=== PATIENT | female | born 1940 | race Caucasian/White ===

== ENCOUNTER 2016-09-15 11:16 | Emergency (ER) | payer BC ==
[~2016-09-15] VITALS: Ht 162.6 cm; Wt 62.8 kg
[2016-09-15 11:19] VITALS: TEMP 36.5; Ht 162.6 cm; Wt 62.8 kg
[2016-09-15 11:41] VITALS: O2SAT 97
--- NOTE | 2016-09-15 11:51 | EMERGENCY ROOM VISIT NOTE ---
History Report prepared by Lam: Foster Juares Under the Supervision of: Dr. Bhavik Canales M.D. First contact with patient: 11:44 Chief Complaint: RESPIRATORY PROBLEMS Stated Complaint: DIFFICULTY BREATHING Nursing Triage Summary: I have had a bad cough for the past 7 days. saturday I was placed on antibiotics. History of Present Illness The patient is a 75 year old female who presents to the Emergency Room with complaints of persistent shortness of breath since last night. The patient has had a bad cough for the past seven days that produces phlegm. She was started on Doxycycline and Tessalon Perles three days ago after going to [facility] for the cough. She did not have a chest X-ray at [facility]. She denies any fevers, chills, or increased swelling of the lower extremities. The patient denies any history of COPD or asthma. The patient stopped smoking over one year ago. Source of History: patient Onset: last night Position: other (respiratory) Quality: other (short of breath) Timing: other (persistent) Associated Symptoms: + cough, No chills, No fevers Review of Systems All systems have been listed, reviewed, and are negative other than those previously mentioned. Please see Additional Medical History Sheet. Past Medical & Surgical Medical Problems: (1) HTN (hypertension) (2) Kidney disease Surgical Problems: (1) S/P AAA repair Family History Hypertension Kidney disease Social History Smoking Status: Former Smoker Current/Historical Medications Scheduled Benzonatate (Tessalon Perles), 100 MG PO TID Doxycycline Monohydrate (Monodox), 100 MG PO BID Levothyroxine Sodium (Synthroid), 50 MCG PO Q2D Levothyroxine Sodium (Synthroid), 25 MCG PO Q2D Losartan Potassium (Cozaar), 100 MG PO DAILY Simvastatin (Zocor), 40 MG PO QPM Allergies Coded Allergies: No Known Allergies (Unverified , 09/15/16) Physical Exam Vital Signs Date Time Temp Pulse Resp B/P Pulse Ox O2 Delivery O2 Flow Rate FiO2 09/15/16 14:20 67 15 100/77 95 Room Air 09/15/16 13:04 65 17 102/74 100 Nebulizer 7.0 09/15/16 12:04 63 09/15/16 11:41 97 Room Air 09/15/16 11:19 36.5 80 16 158/85 97 Room Air Physical Exam GENERAL: Patient awake, alert, oriented x 3. Patient follows commands. Patient does not appear toxic. Patient is adequately hydrated and well- nourished. SKIN: No erythema, pallor, cyanosis or rash HEENT: Normal head, pupils equal, reactive to light and accommodation. Ears normal. Oral cavity and posterior pharynx appear normal. Neck: Without adenopathy, no neck vein distention, carotids strong and equal without bruits. LUNGS: Wheezes in all lung donald. HEART: No murmurs. No gallops. No rubs ABDOMEN: No masses, no rebound, no hepatomegaly or splenomegaly. EXTREMITIES: No signs of trauma or infection. NEUROLOGIC: Cranial nerves II-XII within normal limits. No gross motor sensory function deficits. Medical Decision & Procedures ER Provider Diagnostic Interpretation: X ray results are stated below per my interpretation and the radiologist's interpretation. CHEST 2 VIEWS ROUTINE CLINICAL HISTORY: Shortness of breath COMPARISON STUDY: No previous studies for comparison. FINDINGS: The cardiac and mediastinal contours are normal. There is no evidence of focal pulmonary consolidation. There is no evidence of failure. No pleural effusions are visualized.[There are calcifications at the level of the aortic knob. IMPRESSION: No active disease in the chest. Electronically signed by: Jonathan Mkceon M.D. 09/15/2016 12:29 PM Dictated Date/Time: 09/15/2016 12:28 PM Laboratory Results 09/15/16 11:40 Red Blood Count 4.76, Mean Corpuscular Volume 92.6, Mean Corpuscular Hemoglobin 33.8, Mean Corpuscular Hemoglobin Concent 36.5, Mean Platelet Volume 10.7 09/15/16 11:40 Test 09/15/16 11:40 White Blood Count 6.54 K/uL (4.8-10.8) Red Blood Count 4.76 M/uL (4.2-5.4) Hemoglobin 16.1 g/dL (12.0-16.0) Hematocrit 44.1 % (37-47) Mean Corpuscular Volume 92.6 fL (80-100) Mean Corpuscular Hemoglobin 33.8 pg (25-34) Mean Corpuscular Hemoglobin Concent 36.5 g/dl (32-36) Platelet Count 264 K/uL (130-400) Mean Platelet Volume 10.7 fL (7.4-10.4) RDW Standard Deviation 45.8 fL (36.4-46.3) RDW Coefficient of Variation 13.5 % (11.5-14.5) Neutrophils % (Manual) 65.5 % Lymphocytes % (Manual) 14.2 % Variant Lymphocytes % (manual) 11.5 % Monocytes % (Manual) 8.8 % Neutrophils # (Manual) 4.28 K/uL (1.4-6.5) Total Absolute Neutrophils 4.28 K/uL (1.4-6.5) Lymphocytes # (Manual) 0.93 K/uL (1.2-3.4) Absolute Variant Lymphocytes 0.75 K/uL Total Absolute Lymphocytes 1.68 K/uL (1.2-3.4) Monocytes # (Manual) 0.58 K/uL (0.11-0.59) Red Blood Cell Morphology Unremarkable Anion Gap 10.0 mmol/L (3-11) Est Creatinine Clear Calc Drug Dose 39.4 ml/min Estimated GFR () 57.7 Estimated GFR (Non- 49.8 BUN/Creatinine Ratio 13.5 (10-20) Calcium Level 9.3 mg/dl (8.5-10.1) Troponin I < 0.015 ng/ml (0-0.045) Laboratory results as stated above per my review. Medications Administered Medications (Trade) Dose Ordered Sig/Yanick Route Start Time Stop Time Status Last Admin Dose Admin Albuterol/ Ipratropium (Duoneb) 3 ml NOW STAT INH 09/15/16 12:50 09/15/16 12:52 DC 09/15/16 13:01 3 ML ECG Indication: SOB/dyspnea Rate (beats per minute): 61 Rhythm: normal sinus Findings: no acute ischemic change, no ectopy ED Course 1145: Past medical records reviewed. The patient was evaluated in room C3. A complete history and physical examination was performed. 1246: The patient still has some wheezes but much less. She had 4 puffs of her own Albuterol inhaler with a chamber. She will next have a nebulizer treatment. 1250: DuoNeb 3 ml INH. 1352: The patient had a breathing treatment. She is still wheezing but feels better. 1400: Upon reevaluation, the patient appeared to have improvement of her symptoms. I discussed today's findings with her. She verbalized agreement of the treatment plan. She was discharged home. Medical Decision I considered multiple diagnoses including pneumonia, bronchitis, asthma. The patient's been coughing for about 1 week. She's been treated with doxycycline, Tessalon Perles) Ventolin inhaler over the past 3 days with minimal relief. She was given more Ventolin here using and her inhaler plus a chamber. Patient states that she had minimal relief and therefore was given a regular nebulizer treatment which did give her more relief. Her pulse ox readings were in the high 90s. Chest x-ray does not reveal an infiltrate. White count is not elevated. I believe the patient can safely return home. She 'll continue to use her inhaler and her current medications. Impression Primary Impression: Acute bronchitis Scribe Attestation The scribe's documentation has been prepared under my direction and personally reviewed by me in its entirety. I confirm that the note above accurately reflects all work, treatment, procedures, and medical decision making performed by me. Departure Information Dispostion Home / Self-Care Forms HOME CARE DOCUMENTATION FORM, IMPORTANT VISIT INFORMATION Patient Instructions Bronchitis Acute, My [facility] Additional Instructions Follow-up with your family physician within the next week. Continue Ventolin with the chamber. 2 puffs every 4 hours until wheezing has resolved. Continue your other current medications as prescribed. Return here sooner if your symptoms worsen.
[2016-09-15 12:06] LABS: HEMATOCRIT 44.1 % (37-47); MEAN CELL VOLUME 92.6 fL (80-100); MEAN CORPUSCULAR HEMOGLOBIN 33.8 pg (25-34); MEAN CORPUSCULAR HGB CONC 36.5 g/dl (32-36); MEAN PLATELET VOLUME 10.7 fL (7.4-10.4); PLATELET COUNT 264 K/uL (130-400); RED BLOOD COUNT 4.76 M/uL (4.2-5.4); WHITE BLOOD COUNT 6.54 K/uL (4.8-10.8)
[2016-09-15 12:15] LABS: BUN/CREATININE RATIO 13.5 (10-20); CALCIUM 9.3 mg/dl (8.5-10.1); CREATININE 1.1 mg/dl (0.60-1.20); POTASSIUM 4.6 mmol/L (3.5-5.1)
--- NOTE | 2016-09-15 12:31 | DIAGNOSTIC IMAGING REPORT ---
CHEST 2 VIEWS ROUTINE CLINICAL HISTORY: Shortness of breath COMPARISON STUDY: No previous studies for comparison. FINDINGS: The cardiac and mediastinal contours are normal. There is no evidence of focal pulmonary consolidation. There is no evidence of failure. No pleural effusions are visualized.[There are calcifications at the level of the aortic knob. IMPRESSION: No active disease in the chest. Electronically signed by: Jonathan Mckeon M.D. 09/15/2016 12:29 PM Dictated Date/Time: 09/15/2016 12:28 PM
[2016-09-15] MEDS ORDERED: DOXY100C76 PO (12:46)
[2016-09-15] MEDS ORDERED: LEVO50TA PO (12:46)
[2016-09-15] MEDS ORDERED: BENZ100C84 PO (12:46)
[2016-09-15] MEDS ORDERED: LEVO25TA PO (12:46)
[2016-09-15] MEDS ORDERED: LOSA1TAB38 PO (12:46)
[2016-09-15] MEDS ORDERED: SIMV40TA2 PO (12:46)
[2016-09-15] MEDS ORDERED: ALBUT/IPRATROP 3MG/0.5MG NEB 3 ML VIAL INH STA (12:50)
[2016-09-15 13:08] LABS: COMPLETE YES; LYMPH ABS # 0.93 K/uL (1.2-3.4); LYMPHOCYTE % 14.2 %; NEUTROPHILS % 65.5 %; VARIANT LYM ABS # 0.75 K/uL; VARIANT LYMPHOCYTE % 11.5 %
[2016-09-15 14:20] VITALS: BP 100/77; PULSE 67; O2SAT 95
== END 2016-09-15 14:39 | disposition home or self-care (01) ==
LOC: C.EDB 11:17 → C.EDC 14:39
DX: J20.9 Acute bronchitis, unspecified (principal); I10 Essential (primary) hypertension; Z79.899 Other long term (current) drug therapy; Z87.891 Personal history of nicotine dependence; Z87.898 Personal history of other specified conditions; Z84.1 Family history of disorders of kidney and ureter; Z82.49 Family history of ischemic heart disease and other diseases of the circulatory system

== ENCOUNTER → 2016-10-04 | Outpatient (CLI) | payer BC ==
[~2016-10-04] MED LIST: BENZ100C84 PO; DOXY100C76 PO; LEVO25TA PO; LEVO50TA PO; LOSA1TAB38 PO; SIMV40TA2 PO
[2016-10-04 11:00] LABS: BLOOD UREA NITROGEN 13 mg/dl (7-18); BUN/CREATININE RATIO 11.1 (10-20); CALCIUM 8.6 mg/dl (8.5-10.1); CARBON DIOXIDE 26 mmol/L (21-32); CHLORIDE 105 mmol/L (98-107); GLUCOSE 130 mg/dl (70-99); POTASSIUM 3.7 mmol/L (3.5-5.1); SODIUM 140 mmol/L (136-145)
== END | disposition home or self-care (01) ==
LOC: C.LAB1850 09:51
PROVIDERS: ATTEND Internal Medicine Nephrology
DX: N18.3 Chronic kidney disease, stage 3 (moderate) (principal); I12.9 Hypertensive chronic kidney disease with stage 1 through stage 4 chronic kidney disease, or unspecified chronic kidney disease; E87.1 Hypo-osmolality and hyponatremia

== ENCOUNTER → 2017-03-28 | Outpatient (CLI) | payer BC ==
[2017-03-28 17:55] LABS: BLOOD UREA NITROGEN 18 mg/dl (7-18); CARBON DIOXIDE 25 mmol/L (21-32); CHLORIDE 105 mmol/L (98-107); GLUCOSE 96 mg/dl (70-99); POTASSIUM 4.2 mmol/L (3.5-5.1); SODIUM 135 mmol/L (136-145)
== END | disposition home or self-care (01) ==
LOC: C.LAB1850 16:02
PROVIDERS: ATTEND Internal Medicine Nephrology
DX: N18.3 Chronic kidney disease, stage 3 (moderate) (principal)

== ENCOUNTER → 2017-08-06 | Outpatient (CLI) | payer BC ==
[2017-08-06 13:33] LABS: BASO % 0.4 %; BASO ABS # 0.04 K/uL (0-0.2); COMPLETE YES; HEMATOCRIT 46.4 % (37-47); IG% 0.2 %; LYMPH % 29.6 %; LYMPH ABS # 2.65 K/uL (1.2-3.4); MEAN CELL VOLUME 95.5 fL (80-100); MEAN CORPUSCULAR HEMOGLOBIN 33.3 pg (25-34); MEAN CORPUSCULAR HGB CONC 34.9 g/dl (32-36); MEAN PLATELET VOLUME 10.6 fL (7.4-10.4); MONO % 5.9 %; NEUT % 62.9 %; PLATELET COUNT 283 K/uL (130-400); RED BLOOD COUNT 4.86 M/uL (4.2-5.4); WHITE BLOOD COUNT 8.95 K/uL (4.8-10.8)
[2017-08-06 13:44] LABS: BLOOD UREA NITROGEN 12 mg/dl (7-18); BUN/CREATININE RATIO 9.8 (10-20); CALCIUM 9.5 mg/dl (8.5-10.1); CARBON DIOXIDE 25 mmol/L (21-32); CHLORIDE 102 mmol/L (98-107); CREATININE 1.17 mg/dl (0.60-1.20); GLUCOSE 96 mg/dl (70-99); MAGNESIUM 1.9 mg/dl (1.8-2.4); PHOSPHORUS 3.9 mg/dl (2.5-4.9); POTASSIUM 4.2 mmol/L (3.5-5.1); SODIUM 135 mmol/L (136-145)
== END | disposition home or self-care (01) ==
LOC: C.LAB1850 12:10
PROVIDERS: ATTEND Internal Medicine Nephrology
DX: E55.9 Vitamin D deficiency, unspecified (principal)

== ENCOUNTER → 2017-08-13 | Outpatient (CLI) | payer BC ==
[2017-08-13 14:06] LABS: URINE APPEARANCE CLEAR (CLEAR); URINE BILIRUBIN NEG (NEG); URINE COLOR YELLOW; URINE NITRITE NEG (NEG); URINE PH 7.5 (4.5-7.5); URINE SPECIFIC GRAVITY 1.007 (1.000-1.030); UROBILINOGEN NEG (NEG); ZZUR CULT IF INDIC CLEAN CATCH NO
[2017-08-13 14:13] LABS: CREATININE, URINE 19.1 mg/dl; URINE PROTIEN/CREAT RATIO 2.4 (0-0.2); URINE TOTAL PROTEIN 45.1 mg/dl (0-11.9)
[2017-08-13 14:30] LABS: MANUAL MICROSCOPIC REQUIRED? NO; REVIEW REQ? NO; SULFASALICYLIC ACID POS (NEG)
== END | disposition home or self-care (01) ==
LOC: C.LAB1850 10:52
PROVIDERS: ATTEND Internal Medicine Nephrology
DX: E55.9 Vitamin D deficiency, unspecified (principal)

== ENCOUNTER → 2017-09-19 | Outpatient (CLI) | payer BC ==
[2017-09-19 17:42] LABS: BLOOD UREA NITROGEN 17 mg/dl (7-18); CALCIUM 9.3 mg/dl (8.5-10.1); CARBON DIOXIDE 28 mmol/L (21-32); CREATININE 1.32 mg/dl (0.60-1.20); GLUCOSE 108 mg/dl (70-99); POTASSIUM 3.7 mmol/L (3.5-5.1); SODIUM 133 mmol/L (136-145)
== END | disposition home or self-care (01) ==
LOC: C.LAB1850 16:34
PROVIDERS: ATTEND Internal Medicine Nephrology
DX: I10 Essential (primary) hypertension (principal)

== ENCOUNTER → 2017-11-05 | Outpatient (CLI) | payer BC ==
[2017-11-05 14:29] LABS: ALBUMIN 3.7 gm/dl (3.4-5.0); BLOOD UREA NITROGEN 15 mg/dl (7-18); CALCIUM 9.3 mg/dl (8.5-10.1); CARBON DIOXIDE 24 mmol/L (21-32); CREATININE 1.16 mg/dl (0.60-1.20); GLUCOSE 86 mg/dl (70-99); PHOSPHORUS 3.4 mg/dl (2.5-4.9); POTASSIUM 4.2 mmol/L (3.5-5.1); SODIUM 135 mmol/L (136-145)
== END | disposition home or self-care (01) ==
LOC: C.LAB1850 11:45
PROVIDERS: ATTEND Internal Medicine Nephrology
DX: N18.3 Chronic kidney disease, stage 3 (moderate) (principal)

== ENCOUNTER 2019-07-17 08:22 | Inpatient (IN) ==
[2019-07-17] MEDS ORDERED: ONDANSETRON INJ 2 MG/ML 2 ML VIAL ONE (08:50)
[2019-07-17 08:54] LABS: Basophils # (auto) 0.03 K/uL (0-0.2); Basophils % (auto) 0.3 %; Eosinophils % (auto) 1.1 %; Hematocrit (blood only) 45.1 % (37-47); Hemoglobin 16.4 g/dL (12.0-16.0); Immature Granulocytes # (auto) 0.02 K/uL (0.00-0.02); Immature Granulocytes % (auto) 0.2 %; Lymphocytes # (auto) 3.06 K/uL (1.2-3.4); Lymphocytes % (auto) 33.2 %; Mean Corpuscular Hemoglobin 34.7 pg (25-34); Mean Corpuscular Hgb Conc 36.4 g/dL (32-36); Mean Corpuscular Volume 95.3 fL (80-100); Mean Platelet Volume 9.8 fL (7.4-10.4); Monocytes # (auto) 0.56 K/uL (0.11-0.59); Monocytes % (auto) 6.1 %; Neutrophils # (auto) 5.46 K/uL (1.4-6.5); Neutrophils % (auto) 59.1 %; Platelet Count 282 K/uL (130-400); RDW Coefficient of Variation 13.4 % (11.5-14.5); RDW Standard Deviation 46.3 fL (36.4-46.3); Red Blood Count 4.73 M/uL (4.2-5.4); White Blood Count 9.23 K/uL (4.8-10.8)
[2019-07-17] MEDS ORDERED: ONDANSETRON INJ 2 MG/ML 2 ML VIAL IV STA (08:54)
--- NOTE | 2019-07-17 09:02 | XRay Report ---
XR chest 1V portable HISTORY: 78 years-old Female Chest pain acute atypical chest pain COMPARISON: Chest radiograph 09/15/2016, CTA of the chest 06/01/2015 TECHNIQUE: Portable AP view of the chest FINDINGS: Cardiac silhouette is mildly enlarged, unchanged. Bibasilar interstitial coarsening is noted without pneumothorax, large pleural effusion or overt pulmonary edema. Degenerative changes of the shoulders and spine. IMPRESSION: Bibasilar interstitial coarsening suggests atelectasis/scarring versus pneumonitis, progr essed from the 09/15/2016 exam. The above report was generated using voice recognition software. It may contain grammatical, syntax o r spelling errors. Electronically signed by: Elvin Farmer M.D. 07/17/2019 9:00 AM
[2019-07-17 09:05] LABS: iSTAT Creatinine 1.1 mg/dl (0.6-1.3); iSTAT Hemoglobin 16.7 g/dl (12.0-16.0); iSTAT Ionized Calcium 1.1 mmol/l (1.12-1.32); iSTAT Potassium 4.5 mEq/L (3.3-5.0)
[2019-07-17] MEDS ORDERED: NiCARDipine HCL INJ 2.5 MG/ML 10 ML AMP ONE (09:08)
[2019-07-17] MEDS ORDERED: NITROGLYCERIN/D5W 100MCG/ML 20ML SYR ONE (09:08)
[2019-07-17 09:09] LABS: INR 0.9 (0.9-1.1); Partial Thromboplastin Time 27.2 Seconds (21.0-31.0); Prothrombin Time 9.6 Seconds (9.0-12.0)
[2019-07-17 09:13] LABS: Albumin Level 3.6 gm/dl (3.4-5.0); BUN Creatinine Ratio 13.5 (10-20); Calcium 9.5 mg/dl (8.5-10.1); Creatinine Clr Calc Pharmacy 39.7 ml/min; Est GFR (African American) 53.5; Est GFR (Non-African American) 46.2; Magnesium 1.8 mg/dl (1.8-2.4); Potassium 4.5 mmol/L (3.5-5.1)
[2019-07-17 09:25] LABS: Albumin Globulin Ratio 0.8 (0.9-2); Bilirubin,Total 0.4 mg/dl (0.2-1); Creatine Kinase MB 5.3 ng/ml (0.5-3.6); Globulin 4.2 gm/dl (2.5-4.0); Thyroid Stimulating Hormone 3.66 uIu/ml (0.300-4.500); Total Protein 7.8 gm/dl (6.4-8.2); Troponin I 2.24 ng/ml (0-0.045)
[2019-07-17] MEDS ORDERED: TICAGRELOR 90 MG TAB PO ONE (09:45)
[2019-07-17] MEDS ORDERED: fentaNYL citrate 100 MCG/2 ML VIAL ONE (09:46)
[2019-07-17] MEDS ORDERED: HEPARIN (PORCINE) 1000 UNIT/ML 10 ML (CATH LAB USE ONLY) ONE (09:46)
[2019-07-17] MEDS ORDERED: MIDAZOLAM HCL 1 MG/ML 2ML VIAL ONE (09:47)
--- NOTE | 2019-07-17 10:11 | Pre Anesthesia Assessment ---
Date of Service July 17, 2019 Pre Sedation Assessment Vital Signs Pulse Pulse Resp BP BP Pulse Ox 07/17/19 10:00 60 17 119/81 92 07/17/19 09:55 60 17 119/81 91 07/17/19 09:50 59 L 17 108/76 92 07/17/19 08:52 91 H 21 147/102 H 94 07/17/19 08:40 96 H 24 126/114 H 95 Cardiovascular RRR, no murmur, no edema Respiratory normal respiratory effort, lungs clear to auscultation Pre-Sedation Airway Assessment Smoking Status: Former smoker Hx Sleep Apnea: No Hx Difficult Intubation: No Short, Thick Neck: No Thyromental Distance: > or= 3.5 Finger Breadths Oral Cavity: + WNL Mallampati Class: III Procedure Planning Contraindications for Sedation: none Current Medications Reviewed: Yes Notes The planned sedation has been discussed with the patient. Informed Consent was obtained. I have identified the patient, determined the appropriateness of sedation and have assessed the patient immediately prior to the procedure. All medicine(s) and interventions are by my order.
--- NOTE | 2019-07-17 10:12 | Cardiology Consultation ---
Date of Consultation July 17, 2019 Assessment & Plan (1) STEMI (ST elevation myocardial infarction): Presentation consistent with inferior STEMI and recommend proceeding with emergent cardiac catheterization and likely primary PCI. No apparent contraindications to procedure. Discussed risks, benefits, alternatives of procedure with patient and they are willing to proceed. Patient with known severe innominate disease and prior AAA repair and will plan to perform procedure via left radial artery Further recommendations pending findings of coronary angiography History of Present Illness Reason for Consultation: Heart Alert Requesting Physician: Alycia Attending Physician: Robert Carrington MD History of Present Illness Mrs. Azul is a 78-year-old man here with acute chest pain and ECG concerning for acute PA. Patient seen emergently in the ED after heart alert activated in route. Prior history is remarkable for significant vascular disease post open AAA repair in 2014. 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 Also with hypertension, dyslipidemia, hypothyroidism and ongoing tobacco abuse. She has chronic kidney disease followed by Dr. Brooks. She was previously seen by Dr. Rivera for palpitations. Chest pain began approximately 3 days ago and describes stuttering chest pain over that time. Last night into this morning developed severe persistent chest pain with associated vomiting. Denies similar symptoms in the past. Given sublingual nitroglycerin, Zofran, aspirin in route in the ED. Chest pain at time of interview 3-4 out of 10. Still with persistent nausea. EKG showed chronic left bundle branch block with inferior ST elevations. Allergies Allergy/AdvReac Type Severity Reaction Status Date / Time No Known Allergies Allergy Unverified 09/15/16 12:44 Home Medications Home Medications Medication Instructions Recorded Confirmed Type aspirin 81 mg tablet,delayed 81 mg PO DAILY 05/26/19 07/17/19 History release bisoprolol fumarate 5 mg tablet 5 mg PO DAILY 05/26/19 07/17/19 History cholecalciferol (vitamin D3) 2,000 4,000 units PO DAILY tab 05/26/19 07/17/19 History unit tablet levothyroxine 50 mcg capsule See Rx Instructions PO DAILY 05/26/19 07/17/19 History losartan 100 mg tablet 100 mg PO DAILY #90 tab 05/28/19 07/17/19 Rx ezetimibe 10 mg PO DAILY 07/17/19 07/17/19 History hydralazine 10 mg PO BID 07/17/19 07/17/19 History Patient History Medical History (Updated 07/17/19 @ 10:38 by Josh Carrington MD) HTN (hypertension) (Chronic) Kidney disease (Chronic) Surgical History (Updated 07/17/19 @ 09:11 by Cesar Davis) S/P AAA repair (Resolved) Social History Preferred Language: Cypriot Feels Safe at Home: Yes Smoking Status: Former smoker Review of Systems Review of Systems: All systems reviewed & are unremarkable except as noted in HPI & below Physical Exam Physical Exam: General: Uncomfortable HEENT: Sclerae anicteric, mucous membranes moist Lungs: Clear to auscultation bilaterally Cardiac: Regular rate and rhythm, no murmurs. Abdomen: Soft, nontender, nondistended, positive bowel sounds. Extremities: Warm, well perfused, no edema. 2+ radial pulses Skin: No rashes or lesions. Neuro: Nonfocal Psych: Alert orient x3, normal affect and mood Results & Data Vital Signs (Past 12 Hours) Vital Signs Pulse Pulse Resp BP BP Pulse Ox 07/17/19 10:05 61 17 119/81 92 07/17/19 10:00 60 17 119/81 92 07/17/19 09:55 60 17 119/81 91 07/17/19 09:50 59 L 17 108/76 92 07/17/19 08:52 91 H 21 147/102 H 94 07/17/19 08:40 96 H 24 126/114 H 95 PG Care Time/CCT Total # of Minutes Spent Total Time Spent with Patient: Total time spent is greater than 50% in coordination of care (as documented) at patient's floor/unit and/or counseling patient:
[2019-07-17] MEDS ORDERED: ONDANSETRON INJ 2 MG/ML 2 ML VIAL IV PRN (10:19)
[2019-07-17] MEDS ORDERED: ACETAMINOPHEN 325 MG TAB PO PRN (10:19)
[2019-07-17] MEDS ORDERED: ICU PROTOCOL FOR HYPERGLYCEMIA PRN ×2 (10:19→11:01)
--- NOTE | 2019-07-17 10:42 | Post Operative Brief Note ---
Cardiology Brief Post Op Date of Surgery July 17, 2019 Pre & Post Diagnosis Operation Date: 07/17/19 08:30 <No data on this case meets the specified criteria> Procedure -- Processor Helper Robert Carrington MD Racetrack Steward Kit Estimated Blood Loss 10 Findings Consistent with Post-Op Diagnosis Severe multivessel disease 99% acute distal circumflex 80 to 90% mid LAD Summary: 1. Successful PCI of mid to distal circumflex with single drug-eluting stent (2.5 x 15 mm Jackson). 2. Successful PCI of mid LAD with single drug-eluting stent (2.5 x 18 mm Jamie). Complications none Disposition Disposition: Surgical ICU
--- NOTE | 2019-07-17 11:21 | Critical Care Consultation ---
Date of Consultation July 17, 2019 Assessment & Plan (1) STEMI (ST elevation myocardial infarction): Impression: 78-year-old female presenting with acute myocardial infarction status post 2 drug-eluting stents, one to the circumflex in 1 to the mid LAD. Recommendations: 1. Acute myocardial infarction: Status post stent placement. Management per cardiology. Defer blood pressure goals and lipid-lowering therapy as well as antiplatelet agents to cardiology. 2. Chronic kidney disease: Baseline creatinine around 1.2-1.3. She is better today. Continue to follow with contrast. Saline is infusing and is appropriate. Repeat labs in the morning. 3. Extensive history of tobacco abuse: Likely some degree of obstructive lung disease. She is asymptomatic currently. As needed bronchodilators. Smoking cessation recommended. Would avoid nicotine replacement in the setting of acute myocardial infarction. 4. Hypertension: Continue to follow blood pressure. Goal-directed therapy per cardiology. 5. Peripheral vascular disease: No acute issues. Continue to follow. Will observe in the ICU overnight. Anticipate the patient should be able to transfer to the floor in the morning provided she does well. Will sign off when she leaves the ICU. (2) Tobacco abuse: (3) Kidney disease: History of Present Illness Attending Physician: Jeanmarie Mccullough DO History of Present Illness Patient seen at the request of Dr. Carrington status post percutaneous intervention in the setting of an acute IN. History is obtained from review electronic medical record as well as interview the patient the bedside. Patient is a pleasant 78-year-old female with a history of peripheral vascular disease and hypertension. She has had 3 to 4 days of progressive chest pr essure. She developed increasing symptoms today and presented to the emergency room. EKG was concerning for acute inferior myocardial infarction and patient was taken urgently to [facility] by . Cardiac catheterization revealed a 99% acute distal circumflex lesion as well as 80 to 90% mid LAD lesion. The patient was treated with drug-eluting stents to the distal circumflex and the mid LAD. She was loaded on Brilinta and brought to the ICU. She is remained hemodynamically stable. She is now chest pain-free. Patient does have an extensive history of tobacco abuse. She has an over [id number] history and continues to smoke 3 to 1 pack/day. She is never undergone PFTs and has not been diagnosed with emphysema that she is aware of. Allergies Allergy/AdvReac Type Severity Reaction Status Date / Time No Known Allergies Allergy Unverified 09/15/16 12:44 Home Medications Home Medications Medication Instructions Recorded Confirmed Type aspirin 81 mg tablet,delayed 81 mg PO DAILY 05/26/19 07/17/19 History release bisoprolol fumarate 5 mg tablet 5 mg PO DAILY 05/26/19 07/17/19 History cholecalciferol (vitamin D3) 2,000 4,000 units PO DAILY tab 05/26/19 07/17/19 History unit tablet levothyroxine 50 mcg capsule See Rx Instructions PO DAILY 05/26/19 07/17/19 History losartan 100 mg tablet 100 mg PO DAILY #90 tab 05/28/19 07/17/19 Rx ezetimibe 10 mg PO DAILY 07/17/19 07/17/19 History hydralazine 10 mg PO BID 07/17/19 07/17/19 History Patient History Medical History (Updated 07/17/19 @ 11:19 by Kip Aiken MD) HTN (hypertension) (Chronic) Kidney disease (Chronic) Surgical History (Updated 07/17/19 @ 09:11 by Cesar Davis) S/P AAA repair (Resolved) Social History Preferred Language: Albanian Communication Ability: Effective Maintenance Service Technician Required: No Beliefs That Will Affect Care: None Current Living Situation: Spouse Other Information That Helps Us Care for You: No Feels Safe at Home: Yes Safety Concerns: Feels Safe At This Time Smoking Status: Current every day smoker Tobacco Type: cigarettes ; Cigarettes Per Day: 1 pack ; Do You Dip or Chew Tobacco: No ; Tobacco Cessation Education Requested by Patient: Yes Hx Alcohol Use: Yes Alcohol type: wine Hx Substance Use: No Review of Systems Review of Systems: See HPI. No additions or deletions Physical Exam Constitutional: WD/WN, vitals as above Neck: trachea midline, no thyromegaly Respiratory: normal respiratory effort, lungs clear to auscultation Cardiovascular: RRR, no murmur, no edema Gastrointestinal (Abdomen): normal bowel sounds, soft, nontender, no hepatosplenomegaly Musculoskeletal: Extremities: extremities normal to inspection Skin: no rashes, warm and dry Neurologic: Nonfocal exam Lymphatic: no cervical lymphadenopathy Results & Data Vital Signs (Past 12 Hours) Vital Signs Temp Pulse Pulse Resp BP BP Pulse Ox 07/17/19 11:00 36.3 C L 60 60 19 119/87 96 07/17/19 10:30 60 17 118/70 92 07/17/19 10:15 61 17 126/81 96 07/17/19 10:05 61 17 119/81 92 07/17/19 10:00 60 17 119/81 92 07/17/19 09:55 60 17 119/81 91 07/17/19 09:50 59 L 17 108/76 92 07/17/19 08:52 91 H 21 147/102 H 94 07/17/19 08:40 96 H 24 126/114 H 95 Laboratory Results 07/17/19 08:43 07/17/19 08:43 Diagnostic Findings Chest x-ray from 07/17/2019 was independently reviewed. Mild coarsening of the bronchovascular markings in the bilateral bases noted. No acute airspace opacity. No cardiomegaly. No free air. Coding Level of Care Code 87532 Inpt Consult Level 3 Diagnoses STEMI (ST elevation myocardial infarction) I21.3 Tobacco abuse Z72.0 Kidney disease N28.9
[2019-07-17] MEDS ORDERED: SODIUM CHLORIDE 0.9% 1000ML 1,000 ML IV SCH (11:30)
--- NOTE | 2019-07-17 13:37 | Cardiac Catheterization ---
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 Status Clinical evaluation leading to the procedure CAD Presenation: STEMI Anginal Classification: CCS IV Heart Failure: No Cardiogenic Shock within 24 Hours: No Cardiac Arrest within 24 Hours: No Imaging Studies Past 6 Months: No Stress Studies Past 6 Months: No Diagnostic Physicians Name: Robert Carrington MD Status: Emergency Closure Device Percutaneous Entry Location: Radial Closure Device: Radial Band Recommendations: PCI without planned CABG PCI Indication: Immediate PCI for STEMI First Noted: First EKG Reason For Delay in PCI:: Difficult vascular access Lesion Segment Name: distal circumflex Culprit Artery: Yes Stenosis Prior to Rx (%): 99 Chronic Total Occlusion: No IVUS: No FFR: No Pre-Procedure JORGE LUIS Flow: 2 Previously Treated Lesion: No Lesion Complexity: Non-High/Non-C Lesion Length (mm): 12 Thrombus Present: Yes Bifurcation Lesion: No Guidewire Across Lesion: Stenosis Post-Procedure (%): 0 Post-Procedure JORGE LUIS Flow: 3 Devices(s) Deployed: Yes Yes Lesion #2 Segment Name: mid LAD Culprit Artery: No Stenosis Prior to Rx (%): 80-90 Chronic Total Occlusion: No IVUS: No FFR: No Pre-Procedure JORGE LUIS Flow: 3 Previously Treated Lesion: No Lesion Complexity: Non-High/Non-C Lesion Length (mm): 15 Thrombus Present: No Bifurcation Lesion: No Guidewire Across Lesion: Yes Stenosis Post-Procedure (%): 0 Post-Procedure JORGE LUIS Flow: 3 Devices(s) Deployed: Yes Intraprocedure Events Significant Disection: No Perforation: No Cardiac Cath Procedure Full Procedure Date July 17, 2019 Pre-Procedure Diagnosis Pre-Procedure Diagnosis: STEMI AUC Score AUC Score: 9 Post-Procedure Diagnosis Post-Procedure Diagnosis: Severe CAD and Successful PCI Procedure(s) Performed Procedure(s) Performed: Coronary Angiography, Drug Eluting Stent and Ultrasound Guided Vascular Access [employer] Solutions Developer Robert Carrington MD Mortgage Collector(s) Kit Estimated Blood Loss Estimated Blood Loss: 10 Medication(s) Medication(s): Fentanyl, Nicardipine, Nitroglycerin and Versed Medication(s): Ticagrelor Summary of Findings Indication: STEMI/Heart Alert Access: 6 Fr left radial artery under ultrasound guidance Catheters: Diagnostic JL4, JR4. EBU 3.75 guide Findings: LM -moderate caliber, luminal irregularities LAD -moderate caliber, proximal luminal irregularities, 80 to 90% mid segment disease, distal luminal irregularities as wraps around apex. Moderate caliber first diagonal with 30 to 40% mid segment disease. Circumflex -moderate caliber, 40% mid segment disease, 99% acute earlydistal focal stenosis prior to takeoff of OM 2, left PLB RCA -small to moderate caliber vessel, dominant, luminal irregularities -- PCI -- Antithrombotic therapy: Heparin, ticagrelor Procedure: Left main cannulated with EBU 3.75 guide Certified Technician Specialist 50 wire passed across lesion into distal circumflex Distal circumflex lesion predilated with 2.0 compliant balloon Dilated lesion stented with 2.5 x 15 mm Jamie drug-eluting stent Stent post-dilated with stent balloon IC vasodilators administered for spasm Post procedure JORGE LUIS 3 flow, stent well expanded with minimal residual stenosis and no apparent cardiac complications. Certified Technician Specialist 50 wire removed from circumflex and passed across mid LAD lesion into distal vessel Mid LAD dilated with 2.0 balloon Mid LAD stented with 2.5 x 18 mm Jamie drug-eluting stent Stent postdilated with stent balloon IC vasodilators administered for spasm Post procedure JORGE LUIS 3 flow, stent well expanded with minimal residual stenosis and no apparent cardiac complications. Arterial Closure: TR band Summary: 1. Inferior STEMI/acute 99% distal circumflex stenosis 2. 80-90% mid LAD non-culprit coronary artery disease 3. Successful PCI of mid to distal circumflex with single drug-eluting stent (2.5 x 15 mm Jamie). 4. Successful PCI of mid LAD with single drug-eluting stent (2.5 x 18 mm Jamie). 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 Trend troponins until peak, Check Echo Uptitrate beta-apolinar as BP allows. Continue home ARB. Retry statin Consult cardiac Rehab Hemodynamics Rest Ao:: 169/67/109 Final Ao: 146/62/96 LV: -- Recommendations Recommendations: PCI without planned CABG Specimens Specimens: None Radiation Exposure (mGy) 1624 Contrast (mls) 130 Fluids (cc crystalloids) Fluids (cc crystalloids): 70 Drains Drains: none Anesthesia moderate Procedural Complication(s) None Disposition ICU I attest to the content of the Intraoperative Record and any orders documented therein. Any exceptions are noted below.
--- NOTE | 2019-07-17 14:49 | Emergency Department Note ---
Entered by Cesar Davis acting as a scribe for Ethan Tong History of Present Illness General Chief complaint: Heart Alert Time Seen by Provider: 07/17/19 08:23 Source: patient and EMS Mode of arrival: EMS Limitations: no limitations History of Present Illness Onset (ago): day(s) 3 Location: chest Radiation: non-radiation Pain Consistency: + other (waxing and waning ) Maximum Pain Intensity: 3 Current Pain Intensity: 8 Quality: + crushing Relieved By: + medication (324 Aspirin, 50 Fentanyl ) Associated symptoms: + denies other symptoms (difficulty breathing, radiating pain, dizziness) and + other (nausea) Treatments prior to arrival: other (324 Aspirin 50 Fentanyl ) The patient is a 78 year old female who presents to the Emergency Room with co mplaints of an episode of constant 8/10 waxing and waning chest pain that has been present for the last three days. The patient notes she was unable to sleep last night due to left upper chest pain. The patient reports that the pain is currently a 2/10 after receiving 324 Aspirin and 50 of Fentanyl via EMS. The patient denies any difficulty breathing, radiating pain, or dizziness, but notes she has been nauseous. The patient states that she has a history of hypertension, hyperlipidemia, AAA repair, and a history of smoking. The patient notes that she has had kidney problems and was seen in [facility] for surgery Home Medications Home Medications Medication Instructions Recorded Confirmed Type aspirin 81 mg tablet,delayed 81 mg PO DAILY 05/26/19 07/17/19 History release bisoprolol fumarate 5 mg tablet 5 mg PO DAILY 05/26/19 07/17/19 History cholecalciferol (vitamin D3) 2,000 4,000 units PO DAILY tab 05/26/19 07/17/19 History unit tablet levothyroxine 50 mcg capsule See Rx Instructions PO DAILY 05/26/19 07/17/19 History losartan 100 mg tablet 100 mg PO DAILY #90 tab 05/28/19 07/17/19 Rx ezetimibe 10 mg PO DAILY 07/17/19 07/17/19 History hydralazine 10 mg PO BID 07/17/19 07/17/19 History Allergies Allergy/AdvReac Type Severity Reaction Status Date / Time No Known Allergies Allergy Unverified 09/15/16 12:44 Past Med/Surg History Medical History (Updated 07/17/19 @ 09:11 by Cesar Davis) HTN (hypertension) (Chronic) Kidney disease (Chronic) Surgical History (Updated 07/17/19 @ 09:11 by Cesar Davis) S/P AAA repair (Resolved) Social History Preferred Language: Lithuanian Feels Safe at Home: Yes Smoking Status: Former smoker Review of Systems See HPI for pertinent positives & negatives. and A total of 10 systems reviewed and were otherwise negative Physical Exam Vital Signs Vital Signs - 24 hr 07/17/19 08:40 07/17/19 08:52 07/17/19 09:00 Pulse Rate 96 H Pulse Rate [Apical] 91 H Pulse Rhythm [Apical] Regular Respiratory Rate 24 21 Respiratory Effort / Characteristics Non-Labored Respiratory Depth Normal Respiratory Pattern Regular Blood Pressure 126/114 H Blood Pressure [Left Arm] 147/102 H Blood Pressure Mean 118 Blood Pressure Mean [Left Arm] 117 Blood Pressure Position [Left Arm] Sitting Pulse Oximetry 95 94 Oxygen Delivery Method Room Air Room Air Room Air Sepsis Recent Fever Within 48 Hours No Sepsis New/Unexplained Change in Mental Status No Sepsis Action Taken by Nursing No Action Required 07/17/19 09:50 07/17/19 09:55 07/17/19 10:00 Pulse Rate Pulse Rate [Apical] 59 L 60 60 Pulse Rhythm [Apical] Respiratory Rate 17 17 17 Respiratory Effort / Characteristics Respiratory Depth Respiratory Pattern Blood Pressure Blood Pressure [Left Arm] 108/76 119/81 119/81 Blood Pressure Mean Blood Pressure Mean [Left Arm] 86 93 93 Blood Pressure Position [Left Arm] Pulse Oximetry 92 91 92 Oxygen Delivery Method Room Air Room Air Room Air Sepsis Recent Fever Within 48 Hours Sepsis New/Unexplained Change in Mental Status Sepsis Action Taken by Nursing 07/17/19 10:05 Pulse Rate Pulse Rate [Apical] 61 Pulse Rhythm [Apical] Respiratory Rate 17 Respiratory Effort / Characteristics Respiratory Depth Respiratory Pattern Blood Pressure Blood Pressure [Left Arm] 119/81 Blood Pressure Mean Blood Pressure Mean [Left Arm] 93 Blood Pressure Position [Left Arm] Pulse Oximetry 92 Oxygen Delivery Method Room Air Sepsis Recent Fever Within 48 Hours Sepsis New/Unexplained Change in Mental Status Sepsis Action Taken by Nursing GENERAL: She is oriented to person, place, and time. She appears well-developed and well-nourished. She does not appear distressed. HENT: Exam performed. Head: Normocephalic and atraumatic. Right Ear: External ear normal. No mastoid tenderness. Left Ear: External ear normal. No mastoid tenderness. Mouth/Throat: The oropharynx is clear and moist. No trismus in the jaw. No dental abscesses or uvula swelling. No oropharyngeal exudate or tonsillar abscesses. EYES: Conjunctivae and EOM are normal. Pupils are equal, round, and reactive to light. Right eye exhibits no discharge. Left eye exhibits no discharge. No scleral icterus. NECK: Normal range of motion. Neck supple. No JVD present. No spinous process tenderness present. No carotid bruit present. No rigidity. No tracheal deviation and normal range of motion present. No Brudzinski's sign and no Kernig's sign noted. CV: Normal rate, regular rhythm, normal heart sounds and intact distal pulses. There is no peripheral edema. Palpable radial pulses bue. PULM/CHEST: Effort normal and breath sounds normal. No respiratory distress. No stridor. She has no wheezes. She has no rales. Chest Wall: She exhibits no tenderness. ABD: The abdomen is soft. Bowel sounds are normal. She has no distension. No mass is present. There is no tenderness. There is no rebound, no guarding, no Coffman's sign and no tenderness at McBurney's point. Rovsig negative MUSC/SKEL: Normal range of motion. There is no peripheral edema, tenderness or deformity. LYMPH: No cervical adenopathy. NEURO: She is alert and oriented to person, place, and time. She has normal strength. No cranial nerve deficit or sensory deficit. Coordination and gait normal. GCS eye subscore is 4. GCS verbal subscore is 5. GCS motor subscore is 6. cerbellar tests wnl. SKIN: Skin is warm and dry. She is not diaphoretic. PSYCH: She has a normal mood and affect. Her behavior is normal. Judgment and thought content normal. Course Course 0836: The patient was evaluated in room B01. A complete history and physical exam was performed. 0819: Ems faxed over EKG sinus rhythm, 72, TN QT/Qtc within normal limits, QRs 126, st el in leads I III AVf, st elevation B2 t wave in lead I, AVF, hear alert called, 0826: Repeat EKG: rate 72 sinus r, Qt/Qtc within normal limits, 130 , ST elevation in lead 2 3 AVf, AT depression in B2, t wave inversion I f Abl 0845: Sinus rhythm, Qt/QTc st el 2 -3 AVf, ST depression in leads b3, T wave in leads I and AVf 0855: consulted Dr. Carrington, Cardiology [facility]. The patient will be admitted for further treatment. Administered Medications Discontinued Medications Ondansetron HCl (Zofran) Confirm Administered Dose 4 mg .ROUTE .STK-MED ONE Stop: 07/17/19 08:51 Last Admin: 07/17/19 08:54 Dose: 4 mg Documented by: [id number] Ondansetron HCl (Zofran) 4 mg IV NOW STA Stop: 07/17/19 08:55 Last Admin: 07/17/19 09:05 Dose: Not Given Documented by: [id number] Discharge Plan Visit Data Chief Complaint: Heart Alert ED Provider: Ethan Tong Patient Disposition: Still a Patient Discharge Instructions Interventions: ED Discharge Assessment Last Done: 07/17/19 09:00 Medical Decision Making Medical Records Attestation: I reviewed the patient's medical records. Home Medications Current Medication List: was personally reviewed by me Laboratory Data Attestation: I reviewed the patient's lab results. Result diagrams: 07/17/19 08:43 07/17/19 08:43 Lab Results 07/17/19 07/17/19 07/17/19 Range/Units 08:43 08:43 08:43 WBC 9.23 (4.8-10.8) K/uL RBC 4.73 (4.2-5.4) M/uL Hgb 16.4 H (12.0-16.0) g/dL POC Hgb (12.0-16.0) g/dl Hct 45.1 (37-47) % POC Hct (37-47) % MCV 95.3 (80-100) fL MCH 34.7 H (25-34) pg MCHC 36.4 H (32-36) g/dL RDW Std Deviation 46.3 (36.4-46.3) fL RDW Coeff of Vanessa 13.4 (11.5-14.5) % Plt Count 282 (130-400) K/uL MPV 9.8 (7.4-10.4) fL Immature Gran % (Auto) 0.2 % Neut % (Auto) 59.1 % Lymph % (Auto) 33.2 % [place] % (Auto) 6.1 % Eos % (Auto) 1.1 % Baso % (Auto) 0.3 % Immature Gran # (Auto) 0.02 (0.00-0.02) K/uL Neut # (Auto) 5.46 (1.4-6.5) K/uL Lymph # (Auto) 3.06 (1.2-3.4) K/uL Huntington # (Auto) 0.56 (0.11-0.59) K/uL Eos # (Auto) 0.10 (0-0.5) K/uL Baso # (Auto) 0.03 (0-0.2) K/uL PT 9.6 (9.0-12.0) Seconds INR 0.9 (0.9-1.1) APTT 27.2 (21.0-31.0) Seconds PTT Ratio 1.0 POC Sodium (135-144) mEq/L Sodium 135 L (136-145) mmol/L POC Potassium (3.3-5.0) mEq/L Potassium 4.5 (3.5-5.1) mmol/L POC Chloride (101-112) mEq/L Chloride 105 (98-107) mmol/L Carbon Dioxide 23 (21-32) mmol/L POC Total CO2 (24-31) mEq/l Anion Gap 7.0 (3-11) POC Anion Gap (16-25) mmol/L POC BUN (7-18) mg/dl BUN 16 (7-18) mg/dl Creatinine 1.15 (0.6-1.2) mg/dl POC Creatinine (0.6-1.3) mg/dl Est Cr Clr Drug Dosing 39.7 ml/min Est GFR ( Amer) 53.5 Est GFR (Non-Af Amer) 46.2 BUN/Creatinine Ratio 13.5 (10-20) Glucose 133 H (70-99) mg/dl POC Glucose (other) (70-99) mg/dl Calcium 9.5 (8.5-10.1) mg/dl POC Ioniz Calcium Veronica (1.12-1.32) mmol/l Magnesium 1.8 (1.8-2.4) mg/dl Total Bilirubin 0.4 (0.2-1) mg/dl AST 36 (15-37) U/L ALT 27 (12-78) U/L Alkaline Phosphatase 113 (45-117) U/L Total Creatine Kinase 145 (26-192) U/L CK-MB (CK-2) 5.3 H (0.5-3.6) ng/ml CK/CKMB % Calc 3.7 H (0-3.0) POC Troponin I (0-0.045) ng/ml Troponin I 2.240 H* (0-0.045) ng/ml Total Protein 7.8 (6.4-8.2) gm/dl Albumin 3.6 (3.4-5.0) gm/dl Globulin 4.2 H (2.5-4.0) gm/dl Albumin/Globulin Ratio 0.8 L (0.9-2) Lipase 395 H (73-393) U/L TSH 3.660 (0.300-4.500) uIu/ml Specimen Hemolysis 07/17/19 07/17/19 Range/Units 08:50 08:50 WBC (4.8-10.8) K/uL RBC (4.2-5.4) M/uL Hgb (12.0-16.0) g/dL POC Hgb 16.7 H (12.0-16.0) g/dl Hct (37-47) % POC Hct 49 H (37-47) % MCV (80-100) fL MCH (25-34) pg MCHC (32-36) g/dL RDW Std Deviation (36.4-46.3) fL RDW Coeff of Vanessa (11.5-14.5) % Plt Count (130-400) K/uL MPV (7.4-10.4) fL Immature Gran % (Auto) % Neut % (Auto) % Lymph % (Auto) % Huntington % (Auto) % Eos % (Auto) % Baso % (Auto) % Immature Gran # (Auto) (0.00-0.02) K/uL Neut # (Auto) (1.4-6.5) K/uL Lymph # (Auto) (1.2-3.4) K/uL Huntington # (Auto) (0.11-0.59) K/uL Eos # (Auto) (0-0.5) K/uL Baso # (Auto) (0-0.2) K/uL PT (9.0-12.0) Seconds INR (0.9-1.1) APTT (21.0-31.0) Seconds PTT Ratio POC Sodium 134 L (135-144) mEq/L Sodium (136-145) mmol/L POC Potassium 4.5 (3.3-5.0) mEq/L Potassium (3.5-5.1) mmol/L POC Chloride 104 (101-112) mEq/L Chloride (98-107) mmol/L Carbon Dioxide (21-32) mmol/L POC Total CO2 24 (24-31) mEq/l Anion Gap (3-11) POC Anion Gap 11.0 L (16-25) mmol/L POC BUN 18 (7-18) mg/dl BUN (7-18) mg/dl Creatinine (0.6-1.2) mg/dl POC Creatinine 1.1 (0.6-1.3) mg/dl Est Cr Clr Drug Dosing ml/min Est GFR ( Amer) Est GFR (Non-Af Amer) BUN/Creatinine Ratio (10-20) Glucose (70-99) mg/dl POC Glucose (other) 132 H (70-99) mg/dl Calcium (8.5-10.1) mg/dl POC Ioniz Calcium Veronica 1.10 L (1.12-1.32) mmol/l Magnesium (1.8-2.4) mg/dl Total Bilirubin (0.2-1) mg/dl AST (15-37) U/L ALT (12-78) U/L Alkaline Phosphatase (45-117) U/L Total Creatine Kinase (26-192) U/L CK-MB (CK-2) (0.5-3.6) ng/ml CK/CKMB % Calc (0-3.0) POC Troponin I 2.25 H (0-0.045) ng/ml Troponin I (0-0.045) ng/ml Total Protein (6.4-8.2) gm/dl Albumin (3.4-5.0) gm/dl Globulin (2.5-4.0) gm/dl Albumin/Globulin Ratio (0.9-2) Lipase (73-393) U/L TSH (0.300-4.500) uIu/ml Specimen Hemolysis Imaging Data Radiologist's Impression: Radiology results as stated below per my review and the radiologist's interpretation: ECG Data Indication: + chest pain Rate (beats per minute): 72 Rhythm: + sinus rhythm ECG ST segments: + ST depression and + ST elevation (leads 1,3 )
[2019-07-17 15:21] LABS: Appearance Urine Clear (Clear); Bacteria Urine Automated Negative (Negative); Bilirubin Urine Negative (Negative); Blood Urine Negative (Negative); Cast Urine Automated 0 /lpf (0-5); Color Urine Yellow; Glucose Urine UA Negative (Negative); Ketones Urine Negative (Negative); Leukocyte Esterase Urine 2+ (Negative); Nitrite Urine Negative (Negative); Protein Urine 2+ (Negative); RBC Urine Automated 0-4 /hpf (0-4); Specific Gravity Urine 1.035 (1.000-1.030); Urobilinogen Urine Negative (Negative); WBC Urine Automated >30 /hpf (0-5)
--- NOTE | 2019-07-17 15:21 | Emergency Department Note ---
Entered by Cesar Davis acting as a scribe for History of Present Illness General Chief complaint: Heart Alert Time Seen by Provider: 07/17/19 08:23 Source: patient Mode of arrival: EMS History of Present Illness Onset (ago): hour(s) less than 1 Location: chest Radiation: non-radiation Maximum Pain Intensity: 3 Quality: + aching Associated symptoms: + denies other symptoms (difficulty breathing, radiating pain, or dizziness) and + other (dizzy. nauseous) The patient is a 78 year old female who presents to the Emergency Room with complaints of an episode of constant waxing and waning chest pain that has been present for the last three days. She reports that the pain got severe last night and the patient notes she was unable to sleep last night due to left upper chest pain. Maximum pain intensity was 8 out of 10 the patient reports that the pain is currently a 2/10 after receiving 324 Aspirin and 50 of Fentanyl via EMS. The patient denies any difficulty breathing, radiating pain, or dizziness, but notes she has been nauseous. The patient states that she has a history of hypertension, hyperlipidemia, AAA repair, and a history of smoking. The patient notes that she has had kidney problems and was seen in [place] for surgery. Home Medications Home Medications Medication Instructions Recorded Confirmed Type aspirin 81 mg tablet,delayed 81 mg PO DAILY 05/26/19 07/17/19 History release bisoprolol fumarate 5 mg tablet 5 mg PO DAILY 05/26/19 07/17/19 History cholecalciferol (vitamin D3) 2,000 4,000 units PO DAILY tab 05/26/19 07/17/19 History unit tablet losartan 100 mg tablet 100 mg PO DAILY #90 tab 05/28/19 07/17/19 Rx ezetimibe 10 mg PO DAILY 07/17/19 07/17/19 History hydralazine 10 mg PO BID 07/17/19 07/17/19 History levothyroxine 25 mcg PO Q OTHER DAY 07/17/19 07/17/19 History levothyroxine 50 mcg PO Q OTHER DAY 07/17/19 07/17/19 History Allergies Allergy/AdvReac Type Severity Reaction Status Date / Time No Known Allergies Allergy Unverified 09/15/16 12:44 Past Med/Surg History Medical History HTN (hypertension) (Chronic) Kidney disease (Chronic) Surgical History S/P AAA repair (Resolved) Social History Preferred Language: Mongolian Communication Ability: Effective Clinical Allergist Required: No Beliefs That Will Affect Care: None marital status: Current Living Situation: Spouse Other Information That Helps Us Care for You: No Feels Safe at Home: Yes Safety Concerns: Feels Safe At This Time Smoking Status: Current every day smoker Tobacco Type: cigarettes ; Cigarettes Per Day: 1 pack ; Do You Dip or Chew Tobacco: No ; Tobacco Cessation Education Requested by Patient: Yes Hx Alcohol Use: Yes Alcohol type: wine Hx Substance Use: No Review of Systems See HPI for pertinent positives & negatives. and A total of 10 systems reviewed and were otherwise negative Physical Exam Vital Signs Vital Signs - 24 hr 07/17/19 08:40 07/17/19 08:52 07/17/19 09:00 Pulse Rate 96 H Pulse Rate [Apical] 91 H Pulse Rhythm [Apical] Regular Respiratory Rate 24 21 Respiratory Effort / Characteristics Non-Labored Respiratory Depth Normal Respiratory Pattern Regular Blood Pressure 126/114 H Blood Pressure [Left Arm] 147/102 H Blood Pressure Mean 118 Blood Pressure Mean [Left Arm] 117 Blood Pressure Position [Left Arm] Sitting Pulse Oximetry 95 94 Oxygen Delivery Method Room Air Room Air Room Air Sepsis Recent Fever Within 48 Hours No Sepsis New/Unexplained Change in Mental Status No Sepsis Action Taken by Nursing No Action Required 07/17/19 09:50 07/17/19 09:55 07/17/19 10:00 Pulse Rate Pulse Rate [Apical] 59 L 60 60 Pulse Rhythm [Apical] Respiratory Rate 17 17 17 Respiratory Effort / Characteristics Respiratory Depth Respiratory Pattern Blood Pressure Blood Pressure [Left Arm] 108/76 119/81 119/81 Blood Pressure Mean Blood Pressure Mean [Left Arm] 86 93 93 Blood Pressure Position [Left Arm] Pulse Oximetry 92 91 92 Oxygen Delivery Method Room Air Room Air Room Air Sepsis Recent Fever Within 48 Hours Sepsis New/Unexplained Change in Mental Status Sepsis Action Taken by Nursing 07/17/19 10:05 07/17/19 10:15 Pulse Rate Pulse Rate [Apical] 61 61 Pulse Rhythm [Apical] Respiratory Rate 17 17 Respiratory Effort / Characteristics Respiratory Depth Respiratory Pattern Blood Pressure Blood Pressure [Left Arm] 119/81 126/81 Blood Pressure Mean Blood Pressure Mean [Left Arm] 93 96 Blood Pressure Position [Left Arm] Pulse Oximetry 92 96 Oxygen Delivery Method Room Air Room Air Sepsis Recent Fever Within 48 Hours Sepsis New/Unexplained Change in Mental Status Sepsis Action Taken by Nursing GENERAL: She is oriented to person, place, and time. She appears well-developed and well-nourished. She does not appear distressed. HENT: Exam performed. Head: Normocephalic and atraumatic. Right Ear: External ear normal. No mastoid tenderness. Left Ear: External ear normal. No mastoid tenderness. Mouth/Throat: The oropharynx is clear and moist. No trismus in the jaw. No dental abscesses or uvula swelling. No oropharyngeal exudate or tonsillar abscesses. EYES: Conjunctivae and EOM are normal. Pupils are equal, round, and reactive to light. Right eye exhibits no discharge. Left eye exhibits no discharge. No scleral icterus. NECK: Normal range of motion. Neck supple. No JVD present. No spinous process tenderness present. No carotid bruit present. No rigidity. No tracheal deviation and normal range of motion present. No Brudzinski's sign and no Kernig's sign noted. CV: Normal rate, regular rhythm, normal heart sounds and intact distal pulses. There is no peripheral edema. Palpable radial pulses bue. PULM/CHEST: Effort normal and breath sounds normal. No respiratory distress. No stridor. She has no wheezes. She has no rales. Chest Wall: She exhibits no tenderness. ABD: The abdomen is soft. Bowel sounds are normal. She has no distension. No mass is present. There is no tenderness. There is no rebound, no guarding, no Coffman's sign and no tenderness at McBurney's point. Rovsig negative MUSC/SKEL: Normal range of motion. There is no peripheral edema, tenderness or deformity. LYMPH: No cervical adenopathy. NEURO: She is alert and oriented to person, place, and time. She has normal strength. No cranial nerve deficit or sensory deficit. Coordination and gait normal. GCS eye subscore is 4. GCS verbal subscore is 5. GCS motor subscore is 6. cerbellar tests wnl. SKIN: Skin is warm and dry. She is not diaphoretic. PSYCH: She has a normal mood and affect. Her behavior is normal. Judgment and thought content normal. Course Course 0812: Ems faxed over EKG sinus rhythm, rate of 72, MN AND QT/Qtc within normal limits, QRs 126, st elevation in leads II, III and aVf. St depression in B2. T wave inversion in lead I Avl, hear alert called. 082: Repeat EKG faxed by EMS showed sinus rhythm with rate of 72. MN and QTc intervals within normal limits. QRS 130. ST elevation in leads II, III and aVF. ST depression only brief 2. T wave inversion in leads I and aVL. ST el evation does appear worse than previous EKG faxed over by EMS. 0836: The patient was evaluated in room B01. A complete history and physical exam was performed. Heart alert team at bedside. Patient was placed on sack sewer machine which did continue to show the ST elevation. Cardiac pads were placed on the patient. Bedside chest x-ray was done which showed no widening of the mediastinum or pneumothorax when viewed by me. Repeat EKG showed sinus rhythm with rate of 69. MN and QTc intervals within normal limits. QRS 126. ST elevation in leads II, III and aVF. T wave inversion in leads I and aVL. ST depression lead V2. 0858: Dr. Carrington, Cardiology [facility] at bedside. Patient will be taken to [facility]. Administered Medications Sodium Chloride (Nss 1000ml) 1,000 mls @ 100 mls/hr IV .Q10H BRIJESH Stop: 07/17/19 18:59 Last Admin: 07/17/19 11:27 Dose: 100 mls/hr Documented by: [id number] Discontinued Medications Fentanyl Citrate (Fentanyl Citrate) Confirm Administered Dose 100 mcg .ROUTE .STK-MED ONE Stop: 07/17/19 09:47 Last Increment: 07/17/19 10:32 Dose: 25 mcg Documented by: [id number] Heparin Sodium (Porcine) (Heparin Iv Bolus ([facility] Use Only)) Confirm Administered Dose 10,000 units .ROUTE .STK-MED ONE Stop: 07/17/19 09:47 Last Admin: 07/17/19 10:32 Dose: 7,000 units Documented by: [id number] Heparin Sodium/Sodium Chloride (Heparin/Nss 1000 Unit/500ml Flush Bag) Confirm Administered Dose 5,000 units IV .STK-MED ONE Stop: 07/17/19 09:48 Last Admin: 07/17/19 12:20 Dose: 5,000 units Documented by: [id number] Midazolam HCl (Versed) Confirm Administered Dose 2 mg .ROUTE .STK-MED ONE Stop: 07/17/19 09:48 Last Increment: 07/17/19 10:32 Dose: 1 mg Documented by: [id number] Nicardipine HCl (Cardene) Confirm Administered Dose 25 mg .ROUTE .STK-MED ONE Stop: 07/17/19 09:09 Last Admin: 07/17/19 12:01 Dose: 25 mg Documented by: [id number] Nitroglycerin/Dextrose (Nitroglycerin/D5w 100 Mcg/Ml 20ml Syringe) Confirm Administered Dose 2,000 mcg .ROUTE .STK-MED ONE Stop: 07/17/19 09:09 Last Admin: 07/17/19 12:20 Dose: 2,000 mcg Documented by: [id number] Ondansetron HCl (Zofran) Confirm Administered Dose 4 mg .ROUTE .STK-MED ONE Stop: 07/17/19 08:51 Last Admin: 07/17/19 08:54 Dose: 4 mg Documented by: [id number] Ondansetron HCl (Zofran) 4 mg IV NOW STA Stop: 07/17/19 08:55 Last Admin: 07/17/19 09:05 Dose: Not Given Documented by: [id number] Ticagrelor (Brilinta) Confirm Administered Dose 180 mg PO .STK-MED ONE Stop: 07/17/19 09:46 Last Admin: 07/17/19 10:32 Dose: 180 mg Documented by: [id number] Critical Care Time Total Critical Care Time: 35 I have personally spent 35 minutes of critical care time in the direct management of this patient. This includes bedside care, interpretation of diagnostic studies, and testing, discussion with consultants, patient, and family members, and other required patient management activities. This 35 minutes is in excess of all separately billable procedures. Medical Decision Making Medical Records Attestation: I reviewed the patient's medical records. Home Medications Current Medication List: was personally reviewed by me Laboratory Data Attestation: I reviewed the patient's lab results. Result diagrams: 07/17/19 08:43 07/17/19 08:43 Lab Results 11/15/19 11/15/19 11/15/19 Range/Units 08:43 08:43 08:43 WBC 9.23 (4.8-10.8) K/uL RBC 4.73 (4.2-5.4) M/uL Hgb 16.4 H (12.0-16.0) g/dL POC Hgb (12.0-16.0) g/dl Hct 45.1 (37-47) % POC Hct (37-47) % MCV 95.3 (80-100) fL MCH 34.7 H (25-34) pg MCHC 36.4 H (32-36) g/dL RDW Std Deviation 46.3 (36.4-46.3) fL RDW Coeff of Vanessa 13.4 (11.5-14.5) % Plt Count 282 (130-400) K/uL MPV 9.8 (7.4-10.4) fL Immature Gran % (Auto) 0.2 % Neut % (Auto) 59.1 % Lymph % (Auto) 33.2 % [place] % (Auto) 6.1 % Eos % (Auto) 1.1 % Baso % (Auto) 0.3 % Immature Gran # (Auto) 0.02 (0.00-0.02) K/uL Neut # (Auto) 5.46 (1.4-6.5) K/uL Lymph # (Auto) 3.06 (1.2-3.4) K/uL [place] # (Auto) 0.56 (0.11-0.59) K/uL Eos # (Auto) 0.10 (0-0.5) K/uL Baso # (Auto) 0.03 (0-0.2) K/uL PT 9.6 (9.0-12.0) Seconds INR 0.9 (0.9-1.1) APTT 27.2 (21.0-31.0) Seconds PTT Ratio 1.0 POC Sodium (135-144) mEq/L Sodium 135 L (136-145) mmol/L POC Potassium (3.3-5.0) mEq/L Potassium 4.5 (3.5-5.1) mmol/L POC Chloride (101-112) mEq/L Chloride 105 (98-107) mmol/L Carbon Dioxide 23 (21-32) mmol/L POC Total CO2 (24-31) mEq/l Anion Gap 7.0 (3-11) POC Anion Gap (16-25) mmol/L POC BUN (7-18) mg/dl BUN 16 (7-18) mg/dl Creatinine 1.15 (0.6-1.2) mg/dl POC Creatinine (0.6-1.3) mg/dl Est Cr Clr Drug Dosing 39.7 ml/min Est GFR ( Amer) 53.5 Est GFR (Non-Af Amer) 46.2 BUN/Creatinine Ratio 13.5 (10-20) Glucose 133 H (70-99) mg/dl POC Glucose (other) (70-99) mg/dl Calcium 9.5 (8.5-10.1) mg/dl POC Ioniz Calcium Veronica (1.12-1.32) mmol/l Magnesium 1.8 (1.8-2.4) mg/dl Total Bilirubin 0.4 (0.2-1) mg/dl AST 36 (15-37) U/L ALT 27 (12-78) U/L Alkaline Phosphatase 113 (45-117) U/L Total Creatine Kinase 145 (26-192) U/L CK-MB (CK-2) 5.3 H (0.5-3.6) ng/ml CK/CKMB % Calc 3.7 H (0-3.0) POC Troponin I (0-0.045) ng/ml Troponin I 2.240 H* (0-0.045) ng/ml Total Protein 7.8 (6.4-8.2) gm/dl Albumin 3.6 (3.4-5.0) gm/dl Globulin 4.2 H (2.5-4.0) gm/dl Albumin/Globulin Ratio 0.8 L (0.9-2) Lipase 395 H (73-393) U/L TSH 3.660 (0.300-4.500) uIu/ml Specimen Hemolysis 07/17/19 07/17/19 Range/Units 08:50 08:50 WBC (4.8-10.8) K/uL RBC (4.2-5.4) M/uL Hgb (12.0-16.0) g/dL POC Hgb 16.7 H (12.0-16.0) g/dl Hct (37-47) % POC Hct 49 H (37-47) % MCV (80-100) fL MCH (25-34) pg MCHC (32-36) g/dL RDW Std Deviation (36.4-46.3) fL RDW Coeff of Vanessa (11.5-14.5) % Plt Count (130-400) K/uL MPV (7.4-10.4) fL Immature Gran % (Auto) % Neut % (Auto) % Lymph % (Auto) % [place] % (Auto) % Eos % (Auto) % Baso % (Auto) % Immature Gran # (Auto) (0.00-0.02) K/uL Neut # (Auto) (1.4-6.5) K/uL Lymph # (Auto) (1.2-3.4) K/uL [place] # (Auto) (0.11-0.59) K/uL Eos # (Auto) (0-0.5) K/uL Baso # (Auto) (0-0.2) K/uL PT (9.0-12.0) Seconds INR (0.9-1.1) APTT (21.0-31.0) Seconds PTT Ratio POC Sodium 134 L (135-144) mEq/L Sodium (136-145) mmol/L POC Potassium 4.5 (3.3-5.0) mEq/L Potassium (3.5-5.1) mmol/L POC Chloride 104 (101-112) mEq/L Chloride (98-107) mmol/L Carbon Dioxide (21-32) mmol/L POC Total CO2 24 (24-31) mEq/l Anion Gap (3-11) POC Anion Gap 11.0 L (16-25) mmol/L POC BUN 18 (7-18) mg/dl BUN (7-18) mg/dl Creatinine (0.6-1.2) mg/dl POC Creatinine 1.1 (0.6-1.3) mg/dl Est Cr Clr Drug Dosing ml/min Est GFR ( Amer) Est GFR (Non-Af Amer) BUN/Creatinine Ratio (10-20) Glucose (70-99) mg/dl POC Glucose (other) 132 H (70-99) mg/dl Calcium (8.5-10.1) mg/dl POC Ioniz Calcium Veronica 1.10 L (1.12-1.32) mmol/l Magnesium (1.8-2.4) mg/dl Total Bilirubin (0.2-1) mg/dl AST (15-37) U/L ALT (12-78) U/L Alkaline Phosphatase (45-117) U/L Total Creatine Kinase (26-192) U/L CK-MB (CK-2) (0.5-3.6) ng/ml CK/CKMB % Calc (0-3.0) POC Troponin I 2.25 H (0-0.045) ng/ml Troponin I (0-0.045) ng/ml Total Protein (6.4-8.2) gm/dl Albumin (3.4-5.0) gm/dl Globulin (2.5-4.0) gm/dl Albumin/Globulin Ratio (0.9-2) Lipase (73-393) U/L TSH (0.300-4.500) uIu/ml Specimen Hemolysis Imaging Data Radiologist's Impression: Radiology results as stated below per my review and the radiologist's interpretation: XR chest 1V portable HISTORY: 78 years-old Female Chest pain acute atypical chest pain COMPARISON: Chest radiograph 09/15/2016, CTA of the chest 06/01/2015 TECHNIQUE: Portable AP view of the chest FINDINGS: Cardiac silhouette is mildly enlarged, unchanged. Bibasilar interstitial coarsening is noted without pneumothorax, large pleural effusion or overt pulmonary edema. Degenerative changes of the shoulders and spine. IMPRESSION: Bibasilar interstitial coarsening suggests atelectasis/scarring versus pneumonitis, progressed from the 09/15/2016 exam. The above report was generated using voice recognition software. It may contain grammatical, syntax or spelling errors. Electronically signed by: Elvin Farmer M.D. 07/17/2019 9:00 AM ECG Data Indication: + chest pain Rate (beats per minute): 72 Rhythm: + sinus rhythm ECG Intervals/blocks: + Normal QRS (126) and + Normal QT ECG ST segments: + ST depression (V2) and + ST elevation (II, II, AVf) ECG Findings: + Other (twave inversion in lead 1, Avl ) Comparison ECG Date: from (07/17/19 ) Change: no significant change Blood Pressure Blood Pressure Findings: Normal blood pressure Blood Pressure Disposition: further management by hospitalist JORGE ALBERTO Narrative 0812: Ems faxed over EKG sinus rhythm, rate of 72, MN AND QT/Qtc within normal limits, QRs 126, st elevation in leads II, III and aVf. St depression in B2. T wave inversion in lead I Avl, hear alert called. 082: Repeat EKG faxed by EMS showed sinus rhythm with rate of 72. MN and QTc intervals within normal limits. QRS 130. ST elevation in leads II, III and aVF. ST depression only brief 2. T wave inversion in leads I and aVL. ST elevation does appear worse than previous EKG faxed over by EMS. 0836: The patient was evaluated in room B01. A complete history and physical ex am was performed. Heart alert team at bedside. Patient was placed on sack sewer machine which did continue to show the ST elevation. Cardiac pads were placed on the patient. Bedside chest x-ray was done which showed no widening of the mediastinum or pneumothorax when viewed by me. Repeat EKG showed sinus rhythm with rate of 69. MN and QTc intervals within normal limits. QRS 126. ST elevation in leads II, III and aVF. T wave inversion in leads I and aVL. ST depression lead V2. 0858: Dr. Carrington, Cardiology [facility] at bedside. Patient will be taken to [facility]. Impression & Plan ST elevation (STEMI) myocardial infarction Discharge Plan Visit Data Chief Complaint: Heart Alert ED Provider: Ethan Tong Discharge Problem: ST elevation (STEMI) myocardial infarction Patient Disposition: Still a Patient Discharge Instructions Interventions: ED Discharge Assessment Last Done: 07/17/19 09:00 Discharge Problem: ST elevation (STEMI) myocardial infarction Qualifiers: Involved coronary artery: unspecified coronary artery Qualified Code(s): I21.3 - ST elevation (STEMI) myocardial infarction of unspecified site The scribe's documentation has been prepared under my direction and personally reviewed by me in its entirety. I confirm that the note above accurately reflects all work, treatment, procedures, and medical decision making performed by me.
--- NOTE | 2019-07-17 15:32 | History & Physical Report ---
Date of Service July 17, 2019 Assessment & Plan (1) ST elevation (STEMI) myocardial infarction: heart alert this morning emergent cath showed 99% in distal circumflex and a 90% in the LAD two NARCISO placed continue Brilinta and aspirin started on Lipitor 80mg echocardiogram ordered admit to ICU metoprolol 25mg BID NSS at 100cc/hr for renal perfusion (2) HTN (hypertension): stop Hydralazine, only use Metoprolol 25mg BID (3) Chronic kidney disease, stage III (moderate): Cr at baseline, stable will repeat in the morning (4) Tobacco abuse: counseled on quitting (5) S/P AAA repair: History of Present Illness Chief Complaint: I had chest tightness Primary Care Provider: ELYSE PCP 78 yo female with history of tobacco abuse, AAA repair who presented early this morning with c/o chest tightness. She said that for the past three days she has been having intermittent chest pain and tightness. Described it as a squeezing sensation. This was a new symptom for her, denied every having chest pain with exertion or at rest. The pain became much more intense this morning around 3am. It kept her up, the pain was severe. Associated with several episodes of diaphoresis. She denied any dyspnea or nausea. The pain did not radiate. She came to the ED this morning after a few hours and the pain was not improving. In the ED she had a prior LBBB but there was new evidence of ST depressions and she was taken for emergent heart catheterization. Left heart cath showed coronary artery disease with a 99% occlusion in the distal circumflex thought to be the culprit lesion with her STEMI. There was also a 90% stenosis in her LAD that was fixed with NARCISO. She was loaded with Brilinta in addition to aspirin and she transferred to the ICU in stable condition. On my visit she denies any further chest pain or pressure. She ate some lunch and tolerated well. No nausea or dyspnea. Allergies Allergy/AdvReac Type Severity Reaction Status Date / Time No Known Allergies Allergy Unverified 09/15/16 12:44 Home Medications Home Medications Medication Instructions Recorded Confirmed Type aspirin 81 mg tablet,delayed 81 mg PO DAILY 05/26/19 07/17/19 History release bisoprolol fumarate 5 mg tablet 5 mg PO DAILY 05/26/19 07/17/19 History cholecalciferol (vitamin D3) 2,000 4,000 units PO DAILY tab 05/26/19 07/17/19 History unit tablet losartan 100 mg tablet 100 mg PO DAILY #90 tab 05/28/19 07/17/19 Rx ezetimibe 10 mg PO DAILY 07/17/19 07/17/19 History hydralazine 10 mg PO BID 07/17/19 07/17/19 History levothyroxine 25 mcg PO Q OTHER DAY 07/17/19 07/17/19 History levothyroxine 50 mcg PO Q OTHER DAY 07/17/19 07/17/19 History Past Med/Surg History Medical History HTN (hypertension) (Chronic) Kidney disease (Chronic) Surgical History S/P AAA repair (Resolved) Family History (Updated 07/17/19 @ 19:37 by Jeanmarie Mccullough DO) Other Hypertension Social History Preferred Language: Sami Communication Ability: Effective [place] Washer Required: No Beliefs That Will Affect Care: None marital status: Current Living Situation: Spouse Other Information That Helps Us Care for You: No Feels Safe at Home: Yes Safety Concerns: Feels Safe At This Time Smoking Status: Current every day smoker Tobacco Type: cigarettes ; Cigarettes Per Day: 1 pack ; Do You Dip or Chew Tobacco: No ; Tobacco Cessation Education Requested by Patient: Yes Hx Alcohol Use: Yes Alcohol type: wine Hx Substance Use: No Review of Systems Review of Systems: All systems reviewed & are unremarkable except as noted in HPI & below Constitutional: + sweats; no fever, no chills, no fatigue and no weakness Respiratory: no cough, no dyspnea and no wheezing Cardiovascular: + chest pain and + chest pain at rest; no dyspnea, no palpitations, no syncope and no edema Gastrointestinal: no abdominal pain, no nausea, no vomiting, no constipation and no diarrhea/loose stools Physical Exam Constitutional: WD/WN, vitals as above Eyes: PERRL, conjunctivae normal, anicteric sclerae ENMT: external ear and nose normal, oropharynx normal Neck: trachea midline, no thyromegaly Respiratory: normal respiratory effort, lungs clear to auscultation Cardiovascular: RRR, no murmur, no edema Gastrointestinal (Abdomen): normal bowel sounds, soft, nontender, no hepatosplenomegaly Musculoskeletal: no cyanosis or clubbing, extremities motor strength 5/5 Skin: no rashes, warm and dry (numerous tatoos) Neurologic: patellar DTR's 2+ bilat, sensation intact and PERRL, EOMI, accommodation nl, no face palsy, no dysarthria Psychiatric: A+Ox3, euthymic affect Lymphatic: no cervical or axillary lymphadenopathy Results & Data Vital Signs (Past 12 Hours) Vital Signs Temp Pulse Pulse Resp BP BP Pulse Ox 07/17/19 14:30 64 19 112/75 93 07/17/19 14:00 63 20 116/77 95 07/17/19 13:30 70 15 106/75 96 07/17/19 13:00 62 19 91/64 L 93 07/17/19 12:30 65 21 113/77 95 07/17/19 12:00 63 19 106/74 97 07/17/19 11:45 67 65 16 117/79 96 07/17/19 11:30 61 66 19 101/87 101/87 98 07/17/19 11:15 62 61 20 112/73 95 07/17/19 11:11 36.3 C L 60 18 119/87 97 07/17/19 11:00 36.3 C L 61 60 18 119/87 119/87 95 07/17/19 10:30 60 17 118/70 92 07/17/19 10:15 61 17 126/81 96 07/17/19 10:05 61 17 119/81 92 07/17/19 10:00 60 17 119/81 92 07/17/19 09:55 60 17 119/81 91 07/17/19 09:50 59 L 17 108/76 92 07/17/19 08:52 91 H 21 147/102 H 94 07/17/19 08:40 96 H 24 126/114 H 95 Laboratory Results Laboratory Results - last 24 hr 07/17/19 07/17/19 07/17/19 08:43 08:43 08:43 WBC 9.23 RBC 4.73 Hgb 16.4 H POC Hgb Hct 45.1 POC Hct MCV 95.3 MCH 34.7 H MCHC 36.4 H RDW Std Deviation 46.3 RDW Coeff of Vanessa 13.4 Plt Count 282 MPV 9.8 Immature Gran % (Auto) 0.2 Neut % (Auto) 59.1 Lymph % (Auto) 33.2 [place] % (Auto) 6.1 Eos % (Auto) 1.1 Baso % (Auto) 0.3 Immature Gran # (Auto) 0.02 Neut # (Auto) 5.46 Lymph # (Auto) 3.06 [place] # (Auto) 0.56 Eos # (Auto) 0.10 Baso # (Auto) 0.03 PT 9.6 INR 0.9 APTT 27.2 PTT Ratio 1.0 POC Sodium Sodium 135 L POC Potassium Potassium 4.5 POC Chloride Chloride 105 Carbon Dioxide 23 POC Total CO2 Anion Gap 7.0 POC Anion Gap POC BUN BUN 16 Creatinine 1.15 POC Creatinine Est Cr Clr Drug Dosing 39.7 Est GFR ( Amer) 53.5 Est GFR (Non-Af Amer) 46.2 BUN/Creatinine Ratio 13.5 Glucose 133 H POC Glucose POC Glucose (other) Calcium 9.5 POC Ioniz Calcium Veronica Magnesium 1.8 Total Bilirubin 0.4 AST 36 ALT 27 Alkaline Phosphatase 113 Total Creatine Kinase 145 CK-MB (CK-2) 5.3 H CK/CKMB % Calc 3.7 H POC Troponin I Troponin I 2.240 H* Total Protein 7.8 Albumin 3.6 Globulin 4.2 H Albumin/Globulin Ratio 0.8 L Lipase 395 H TSH 3.660 Specimen Hemolysis Urine Color Urine Appearance Urine pH Ur Specific Leroy Urine Protein Urine Glucose (UA) Urine Ketones Urine Blood Urine Nitrite Urine Bilirubin Urine Urobilinogen Ur Leukocyte Esterase Urine WBC (Auto) Urine RBC (Auto) U Hyaline Cast (Auto) U Epithel Cells (Auto) Urine Bacteria (Auto) Nasal Screen MRSA (PCR) 07/17/19 07/17/19 07/17/19 08:50 08:50 11:10 WBC RBC Hgb POC Hgb 16.7 H Hct POC Hct 49 H MCV MCH MCHC RDW Std Deviation RDW Coeff of Vanessa Plt Count MPV Immature Gran % (Auto) Neut % (Auto) Lymph % (Auto) [place] % (Auto) Eos % (Auto) Baso % (Auto) Immature Gran # (Auto) Neut # (Auto) Lymph # (Auto) [place] # (Auto) Eos # (Auto) Baso # (Auto) PT INR APTT PTT Ratio POC Sodium 134 L Sodium POC Potassium 4.5 Potassium POC Chloride 104 Chloride Carbon Dioxide POC Total CO2 24 Anion Gap POC Anion Gap 11.0 L POC BUN 18 BUN Creatinine POC Creatinine 1.1 Est Cr Clr Drug Dosing Est GFR ( Amer) Est GFR (Non-Af Amer) BUN/Creatinine Ratio Glucose POC Glucose POC Glucose (other) 132 H Calcium POC Ioniz Calcium Veronica 1.10 L Magnesium Total Bilirubin AST ALT Alkaline Phosphatase Total Creatine Kinase CK-MB (CK-2) CK/CKMB % Calc POC Troponin I 2.25 H Troponin I Total Protein Albumin Globulin Albumin/Globulin Ratio Lipase TSH Specimen Hemolysis Urine Color Urine Appearance Urine pH Ur Specific Leroy Urine Protein Urine Glucose (UA) Urine Ketones Urine Blood Urine Nitrite Urine Bilirubin Urine Urobilinogen Ur Leukocyte Esterase Urine WBC (Auto) Urine RBC (Auto) U Hyaline Cast (Auto) U Epithel Cells (Auto) Urine Bacteria (Auto) Nasal Screen MRSA (PCR) Negative 07/17/19 07/17/19 07/17/19 11:39 15:00 16:21 WBC RBC Hgb POC Hgb Hct POC Hct MCV MCH MCHC RDW Std Deviation RDW Coeff of Vanessa Plt Count MPV Immature Gran % (Auto) Neut % (Auto) Lymph % (Auto) [place] % (Auto) Eos % (Auto) Baso % (Auto) Immature Gran # (Auto) Neut # (Auto) Lymph # (Auto) [place] # (Auto) Eos # (Auto) Baso # (Auto) PT INR APTT PTT Ratio POC Sodium Sodium POC Potassium Potassium POC Chloride Chloride Carbon Dioxide POC Total CO2 Anion Gap POC Anion Gap POC BUN BUN Creatinine POC Creatinine Est Cr Clr Drug Dosing Est GFR ( Amer) Est GFR (Non-Af Amer) BUN/Creatinine Ratio Glucose POC Glucose 130 H POC Glucose (other) Calcium POC Ioniz Calcium Veronica Magnesium Total Bilirubin AST ALT Alkaline Phosphatase Total Creatine Kinase CK-MB (CK-2) CK/CKMB % Calc POC Troponin I Troponin I 25.800 H* Total Protein Albumin Globulin Albumin/Globulin Ratio Lipase TSH Specimen Hemolysis Urine Color Yellow Urine Appearance Clear Urine pH 6.0 Ur Specific Leroy 1.035 H Urine Protein 2+ H Urine Glucose (UA) Negative Urine Ketones Negative Urine Blood Negative Urine Nitrite Negative Urine Bilirubin Negative Urine Urobilinogen Negative Ur Leukocyte Esterase 2+ H Urine WBC (Auto) >30 H Urine RBC (Auto) 0-4 U Hyaline Cast (Auto) 0 U Epithel Cells (Auto) 10-20 H Urine Bacteria (Auto) Negative Nasal Screen MRSA (PCR) 07/17/19 16:28 WBC RBC Hgb POC Hgb Hct POC Hct MCV MCH MCHC RDW Std Deviation RDW Coeff of Vanessa Plt Count MPV Immature Gran % (Auto) Neut % (Auto) Lymph % (Auto) [place] % (Auto) Eos % (Auto) Baso % (Auto) Immature Gran # (Auto) Neut # (Auto) Lymph # (Auto) [place] # (Auto) Eos # (Auto) Baso # (Auto) PT INR APTT PTT Ratio POC Sodium Sodium POC Potassium Potassium POC Chloride Chloride Carbon Dioxide POC Total CO2 Anion Gap POC Anion Gap POC BUN BUN Creatinine POC Creatinine Est Cr Clr Drug Dosing Est GFR ( Amer) Est GFR (Non-Af Amer) BUN/Creatinine Ratio Glucose POC Glucose 115 H POC Glucose (other) Calcium POC Ioniz Calcium Veronica Magnesium Total Bilirubin AST ALT Alkaline Phosphatase Total Creatine Kinase CK-MB (CK-2) CK/CKMB % Calc POC Troponin I Troponin I Total Protein Albumin Globulin Albumin/Globulin Ratio Lipase TSH Specimen Hemolysis Urine Color Urine Appearance Urine pH Ur Specific Leroy Urine Protein Urine Glucose (UA) Urine Ketones Urine Blood Urine Nitrite Urine Bilirubin Urine Urobilinogen Ur Leukocyte Esterase Urine WBC (Auto) Urine RBC (Auto) U Hyaline Cast (Auto) U Epithel Cells (Auto) Urine Bacteria (Auto) Nasal Screen MRSA (PCR) Diagnostic Findings XR chest 1V portable HISTORY: 78 years-old Female Chest pain acute atypical chest pain COMPARISON: Chest radiograph 09/15/2016, CTA of the chest 06/01/2015 TECHNIQUE: Portable AP view of the chest FINDINGS: Cardiac silhouette is mildly enlarged, unchanged. Bibasilar interstitial coarsening is noted without pneumothorax, large pleural effusion or overt pulmonary edema. Degenerative changes of the shoulders and spine. IMPRESSION: Bibasilar interstitial coarsening suggests atelectasis/scarring versus pneumonitis, progressed from the 09/15/2016 exam. Code Status & VTE Plan Code Status full code VTE Prophylaxis Plan VTE Prophylaxis will be ordered: Yes PG Care Time/CCT Total # of Minutes Spent Total Time Spent with Patient: Total time spent is greater than 50% in coordination of care (as documented) at patient's floor/unit and/or counseling patient: (1) ST elevation (STEMI) myocardial infarction Involved coronary artery: unspecified coronary artery Qualified Code(s): I21.3 - ST elevation (STEMI) myocardial infarction of unspecified site
[2019-07-17] MEDS: METOPROLOL TARTRATE 25 MG TAB PO SCH (20:03)
[2019-07-17] MEDS: TICAGRELOR 90 MG TAB PO SCH (20:03)
[2019-07-17] MEDS ORDERED: HydrALAZINE 10 MG TAB PO SCH (21:00)
[2019-07-17] MEDS ORDERED: TICAGRELOR 90 MG TAB PO SCH (21:00)
[2019-07-18] MEDS ORDERED: LORazepam 0.25 MG/0.5 ML VIAL IV STA ×2 (00:30→22:22)
[2019-07-18 04:59] LABS: Basophils # (auto) 0.02 K/uL (0-0.2); Basophils % (auto) 0.2 %; Eosinophils # (auto) 0.06 K/uL (0-0.5); Eosinophils % (auto) 0.6 %; Hematocrit (blood only) 39.7 % (37-47); Immature Granulocytes # (auto) 0.01 K/uL (0.00-0.02); Immature Granulocytes % (auto) 0.1 %; Lymphocytes % (auto) 17.6 %; Mean Corpuscular Hemoglobin 33.5 pg (25-34); Mean Corpuscular Hgb Conc 35.3 g/dL (32-36); Mean Platelet Volume 9.8 fL (7.4-10.4); Monocytes # (auto) 0.62 K/uL (0.11-0.59); Monocytes % (auto) 6.4 %; Neutrophils # (auto) 7.27 K/uL (1.4-6.5); Neutrophils % (auto) 75.1 %; Platelet Count 246 K/uL (130-400); RDW Coefficient of Variation 13.3 % (11.5-14.5); RDW Standard Deviation 45.9 fL (36.4-46.3); Red Blood Count 4.18 M/uL (4.2-5.4); White Blood Count 9.68 K/uL (4.8-10.8)
[2019-07-18 05:20] LABS: Calcium 9.2 mg/dl (8.5-10.1); Creatinine Clr Calc Pharmacy 47.6 ml/min; Est GFR (African American) 66.6; Est GFR (Non-African American) 57.4; Magnesium 1.7 mg/dl (1.8-2.4); Potassium 4.2 mmol/L (3.5-5.1)
[2019-07-18 05:24] LABS: Phosphorus 3.5 mg/dl (2.5-4.9)
[2019-07-18] MEDS ORDERED: LEVOTHYROXINE SODIUM 25 MCG TABLET PO SCH (06:30)
[2019-07-18 07:45] LABS: Estimated Average Glucose 123 mg/dl; Hemoglobin A1C 5.9 % (4.5-5.6)
[2019-07-18] MEDS ORDERED: LORazepam 0.5 MG TAB PO PRN (08:00)
--- NOTE | 2019-07-18 08:04 | Progress Note ---
Date of Service July 18, 2019 Assessment & Plan (1) STEMI (ST elevation myocardial infarction): Impression: 78-year-old female presenting with acute myocardial infarction status post 2 drug-eluting stents, one to the circumflex in 1 to the mid LAD. Recommendations: 1. Acute myocardial infarction: Status post stent placement. Management per cardiology. Defer antiplatelet agents to cardiology. Goal-directed therapy for her reduced EF per cardiology. 2. Chronic kidney disease: Serum creatinine normal. Would discontinue IV fluids at this point time.. 3. Extensive history of tobacco abuse: Likely some degree of obstructive lung disease. She is asymptomatic currently. As needed bronchodilators. Smoking cessation recommended. Would avoid nicotine replacement in the setting of acute myocardial infarction. 4. Hypertension: Continue to follow blood pressure. Goal-directed therapy per cardiology. 5. Peripheral vascular disease: No acute issues. Continue to follow. 6. Anxiety versus early alcohol withdrawal. The patient responded favorably to low-dose Ativan last night. Continue as needed oral Ativan. Patient stable to transfer out of the ICU to telemetry. Will sign off when she leaves the ICU. (2) Tobacco abuse: (3) Kidney disease: Subjective Patient developed mild agitation last night requiring low-dose Ativan slept well after the Ativan. Unclear if this may represent some early alcohol withdrawal. Otherwise she remains pain-free. Her hemodynamics have been appropriate. No chest pain or shortness of breath. She is doing fine without cigarettes. Review of Systems Review of Systems: See HPI. No additions or deletions Physical Exam Constitutional: WD/WN, vitals as above Neck: trachea midline, no thyromegaly Respiratory: normal respiratory effort, lungs clear to auscultation Cardiovascular: RRR, no murmur, no edema Gastrointestinal (Abdomen): normal bowel sounds, soft, nontender, no hepatospl enomegaly Musculoskeletal: Extremities: extremities normal to inspection Skin: no rashes, warm and dry Lymphatic: no cervical lymphadenopathy Results & Data Vital Signs (Past 12 Hours) Vital Signs Pulse Resp BP Pulse Ox 07/18/19 06:00 76 21 104/66 97 07/18/19 05:00 67 23 109/75 98 07/18/19 04:00 70 24 104/73 99 07/18/19 03:00 69 22 110/65 99 07/18/19 01:00 69 27 H 110/76 99 07/18/19 00:00 68 23 110/83 98 11/15/19 23:00 81 28 H 110/83 96 07/17/19 21:00 68 18 103/67 95 Laboratory Results 07/18/19 04:45 07/18/19 04:45 Diagnostic Findings Echocardiogram from yesterday with mildly reduced ejection fraction 40 to 45%. Grade 2 diastolic dysfunction. Akinesis of the basilar posterior wall with dyskinesia of the apical posterior wall. No significant valvular heart disease. Right ventricle was normal with no suggestion of pulmonary hypertension PG Care Time/CCT Total # of Minutes Spent Total Time Spent with Patient: Total time spent is greater than 50% in coordination of care (as documented) at patient's floor/unit and/or counseling patient:
--- NOTE | 2019-07-18 08:41 | Hospitalist Progress Note ---
Date of Service July 18, 2019 Assessment & Plan (1) ST elevation (STEMI) myocardial infarction: heart alert morning of 07/17 emergent cath showed 99% in distal circumflex and a 90% in the LAD two NARCISO placed continue Brilinta and aspirin continue Lipitor 80mg echocardiogram with EF of 40-45% transfer out of ICU today metoprolol 25mg BID with hold parameters, HR in the 70's, BP in the 90's systolic this morning NSS at 100cc/hr for renal perfusion, can stop today (2) Cardiomyopathy, ischemic: EF on echo is 40-45%, reduced most likely due to coronary artery disease started on Metoprolol, can add low dose Lisinopril once BP a little better, low this morning (3) HTN (hypertension): stop Hydralazine, only use Metoprolol 25mg BID BP low this morning (4) Chronic kidney disease, stage III (moderate): Cr at baseline, stable stable this morning after contrast yesterday (5) Tobacco abuse: counseled on quitting (6) S/P AAA repair: (7) Alcohol withdrawal: drinks every evening, she states only a glass of linnea but may be more Ativan q6 PRN while admitted she will likely resume drinking on discharge Subjective patient resting in bed said she did not sleep well last night, lots of anxiety and jitters she reports that she normally drinks a glass of linnea every night to help her sleep received a dose of Ativan 0.5mg and it made her more comfortable labs show renal function preserved this morning after contrast, will stop fluids echo with EF of 40-45% Review of Systems Review of Systems: All systems reviewed & are unremarkable except as noted in HPI & below Constitutional: + insomnia; no fever Respiratory: no cough and no dyspnea Cardiovascular: no chest pain, no palpitations, no syncope and no edema Gastrointestinal: no abdominal pain, no nausea, no vomiting, no constipation and no diarrhea/loose stools Neurologic: + tremor(s) Psychiatric: + anxiety Physical Exam Constitutional: WD/WN, vitals as above Eyes: PERRL, conjunctivae normal, anicteric sclerae ENMT: external ear and nose normal, oropharynx normal Neck: trachea midline, no thyromegaly Respiratory: normal respiratory effort, lungs clear to auscultation Cardiovascular: RRR, no murmur, no edema Gastrointestinal (Abdomen): normal bowel sounds, soft, nontender, no hepatosplenomegaly Musculoskeletal: no cyanosis or clubbing, extremities motor strength 5/5 Skin: no rashes, warm and dry (numerous tatoos) Neurologic: patellar DTR's 2+ bilat, sensation intact and PERRL, EOMI, accommodation nl, no face palsy, no dysarthria Psychiatric: A+Ox3, euthymic affect Lymphatic: no cervical or axillary lymphadenopathy Results & Data Vital Signs (Past 12 Hours) Vital Signs Pulse Resp BP Pulse Ox 07/18/19 06:00 76 21 104/66 97 07/18/19 05:00 67 23 109/75 98 07/18/19 04:00 70 24 104/73 99 07/18/19 03:00 69 22 110/65 99 07/18/19 01:00 69 27 H 110/76 99 07/18/19 00:00 68 23 110/83 98 07/17/19 23:00 81 28 H 110/83 96 07/17/19 21:00 68 18 103/67 95 Laboratory Results Laboratory Results - last 24 hr 07/17/19 07/17/19 07/17/19 08:43 08:43 08:43 WBC 9.23 RBC 4.73 Hgb 16.4 H POC Hgb Hct 45.1 POC Hct MCV 95.3 MCH 34.7 H MCHC 36.4 H RDW Std Deviation 46.3 RDW Coeff of Vanessa 13.4 Plt Count 282 MPV 9.8 Immature Gran % (Auto) 0.2 Neut % (Auto) 59.1 Lymph % (Auto) 33.2 Ponce % (Auto) 6.1 Eos % (Auto) 1.1 Baso % (Auto) 0.3 Immature Gran # (Auto) 0.02 Neut # (Auto) 5.46 Lymph # (Auto) 3.06 Ponce # (Auto) 0.56 Eos # (Auto) 0.10 Baso # (Auto) 0.03 PT 9.6 INR 0.9 APTT 27.2 PTT Ratio 1.0 POC Sodium Sodium 135 L POC Potassium Potassium 4.5 POC Chloride Chloride 105 Carbon Dioxide 23 POC Total CO2 Anion Gap 7.0 POC Anion Gap POC BUN BUN 16 Creatinine 1.15 POC Creatinine Est Cr Clr Drug Dosing 39.7 Est GFR ( Amer) 53.5 Est GFR (Non-Af Amer) 46.2 BUN/Creatinine Ratio 13.5 Glucose 133 H POC Glucose POC Glucose (other) Estimat Average Glucose Hemoglobin A1c Calcium 9.5 POC Ioniz Calcium Veronica Phosphorus Magnesium 1.8 Total Bilirubin 0.4 AST 36 ALT 27 Alkaline Phosphatase 113 Total Creatine Kinase 145 CK-MB (CK-2) 5.3 H CK/CKMB % Calc 3.7 H POC Troponin I Troponin I 2.240 H* Total Protein 7.8 Albumin 3.6 Globulin 4.2 H Albumin/Globulin Ratio 0.8 L Triglycerides Cholesterol LDL Cholesterol, Calc VLDL Cholesterol, Calc HDL Cholesterol Cholesterol/HDL Ratio Lipase 395 H TSH 3.660 Specimen Hemolysis Urine Color Urine Appearance Urine pH Ur Specific [place] Urine Protein Urine Glucose (UA) Urine Ketones Urine Blood Urine Nitrite Urine Bilirubin Urine Urobilinogen Ur Leukocyte Esterase Urine WBC (Auto) Urine RBC (Auto) U Hyaline Cast (Auto) U Epithel Cells (Auto) Urine Bacteria (Auto) Nasal Screen MRSA (PCR) 07/17/19 07/17/19 07/17/19 08:50 08:50 11:10 WBC RBC Hgb POC Hgb 16.7 H Hct POC Hct 49 H MCV MCH MCHC RDW Std Deviation RDW Coeff of Vanessa Plt Count MPV Immature Gran % (Auto) Neut % (Auto) Lymph % (Auto) [place] % (Auto) Eos % (Auto) Baso % (Auto) Immature Gran # (Auto) Neut # (Auto) Lymph # (Auto) Ponce # (Auto) Eos # (Auto) Baso # (Auto) PT INR APTT PTT Ratio POC Sodium 134 L Sodium POC Potassium 4.5 Potassium POC Chloride 104 Chloride Carbon Dioxide POC Total CO2 24 Anion Gap POC Anion Gap 11.0 L POC BUN 18 BUN Creatinine POC Creatinine 1.1 Est Cr Clr Drug Dosing Est GFR ( Amer) Est GFR (Non-Af Amer) BUN/Creatinine Ratio Glucose POC Glucose POC Glucose (other) 132 H Estimat Average Glucose Hemoglobin A1c Calcium POC Ioniz Calcium Veronica 1.10 L Phosphorus Magnesium Total Bilirubin AST ALT Alkaline Phosphatase Total Creatine Kinase CK-MB (CK-2) CK/CKMB % Calc POC Troponin I 2.25 H Troponin I Total Protein Albumin Globulin Albumin/Globulin Ratio Triglycerides Cholesterol LDL Cholesterol, Calc VLDL Cholesterol, Calc HDL Cholesterol Cholesterol/HDL Ratio Lipase TSH Specimen Hemolysis Urine Color Urine Appearance Urine pH Ur Specific [place] Urine Protein Urine Glucose (UA) Urine Ketones Urine Blood Urine Nitrite Urine Bilirubin Urine Urobilinogen Ur Leukocyte Esterase Urine WBC (Auto) Urine RBC (Auto) U Hyaline Cast (Auto) U Epithel Cells (Auto) Urine Bacteria (Auto) Nasal Screen MRSA (PCR) Negative 07/17/19 07/17/19 07/17/19 11:39 15:00 16:21 WBC RBC Hgb POC Hgb Hct POC Hct MCV MCH MCHC RDW Std Deviation RDW Coeff of Vanessa Plt Count MPV Immature Gran % (Auto) Neut % (Auto) Lymph % (Auto) Ponce % (Auto) Eos % (Auto) Baso % (Auto) Immature Gran # (Auto) Neut # (Auto) Lymph # (Auto) Ponce # (Auto) Eos # (Auto) Baso # (Auto) PT INR APTT PTT Ratio POC Sodium Sodium POC Potassium Potassium POC Chloride Chloride Carbon Dioxide POC Total CO2 Anion Gap POC Anion Gap POC BUN BUN Creatinine POC Creatinine Est Cr Clr Drug Dosing Est GFR ( Amer) Est GFR (Non-Af Amer) BUN/Creatinine Ratio Glucose POC Glucose 130 H POC Glucose (other) Estimat Average Glucose Hemoglobin A1c Calcium POC Ioniz Calcium Veronica Phosphorus Magnesium Total Bilirubin AST ALT Alkaline Phosphatase Total Creatine Kinase CK-MB (CK-2) CK/CKMB % Calc POC Troponin I Troponin I 25.800 H* Total Protein Albumin Globulin Albumin/Globulin Ratio Triglycerides Cholesterol LDL Cholesterol, Calc VLDL Cholesterol, Calc HDL Cholesterol Cholesterol/HDL Ratio Lipase TSH Specimen Hemolysis Urine Color Yellow Urine Appearance Clear Urine pH 6.0 Ur Specific [place] 1.035 H Urine Protein 2+ H Urine Glucose (UA) Negative Urine Ketones Negative Urine Blood Negative Urine Nitrite Negative Urine Bilirubin Negative Urine Urobilinogen Negative Ur Leukocyte Esterase 2+ H Urine WBC (Auto) >30 H Urine RBC (Auto) 0-4 U Hyaline Cast (Auto) 0 U Epithel Cells (Auto) 10-20 H Urine Bacteria (Auto) Negative Nasal Screen MRSA (PCR) 07/17/19 07/17/19 07/18/19 16:28 22:18 04:45 WBC 9.68 RBC 4.18 L Hgb 14.0 POC Hgb Hct 39.7 POC Hct MCV 95.0 MCH 33.5 MCHC 35.3 RDW Std Deviation 45.9 RDW Coeff of Vanessa 13.3 Plt Count 246 MPV 9.8 Immature Gran % (Auto) 0.1 Neut % (Auto) 75.1 Lymph % (Auto) 17.6 Ponce % (Auto) 6.4 Eos % (Auto) 0.6 Baso % (Auto) 0.2 Immature Gran # (Auto) 0.01 Neut # (Auto) 7.27 H Lymph # (Auto) 1.70 Ponce # (Auto) 0.62 H Eos # (Auto) 0.06 Baso # (Auto) 0.02 PT INR APTT PTT Ratio POC Sodium Sodium POC Potassium Potassium POC Chloride Chloride Carbon Dioxide POC Total CO2 Anion Gap POC Anion Gap POC BUN BUN Creatinine POC Creatinine Est Cr Clr Drug Dosing Est GFR ( Amer) Est GFR (Non-Af Amer) BUN/Creatinine Ratio Glucose POC Glucose 115 H POC Glucose (other) Estimat Average Glucose Hemoglobin A1c Calcium POC Ioniz Calcium Veronica Phosphorus Magnesium Total Bilirubin AST ALT Alkaline Phosphatase Total Creatine Kinase CK-MB (CK-2) CK/CKMB % Calc POC Troponin I Troponin I 27.700 H* Total Protein Albumin Globulin Albumin/Globulin Ratio Triglycerides Cholesterol LDL Cholesterol, Calc VLDL Cholesterol, Calc HDL Cholesterol Cholesterol/HDL Ratio Lipase TSH Specimen Hemolysis Urine Color Urine Appearance Urine pH Ur Specific [place] Urine Protein Urine Glucose (UA) Urine Ketones Urine Blood Urine Nitrite Urine Bilirubin Urine Urobilinogen Ur Leukocyte Esterase Urine WBC (Auto) Urine RBC (Auto) U Hyaline Cast (Auto) U Epithel Cells (Auto) Urine Bacteria (Auto) Nasal Screen MRSA (PCR) 07/18/19 07/18/19 07/18/19 04:45 04:45 07:57 WBC RBC Hgb POC Hgb Hct POC Hct MCV MCH MCHC RDW Std Deviation RDW Coeff of Vanessa Plt Count MPV Immature Gran % (Auto) Neut % (Auto) Lymph % (Auto) Ponce % (Auto) Eos % (Auto) Baso % (Auto) Immature Gran # (Auto) Neut # (Auto) Lymph # (Auto) Ponce # (Auto) Eos # (Auto) Baso # (Auto) PT INR APTT PTT Ratio POC Sodium Sodium 138 POC Potassium Potassium 4.2 POC Chloride Chloride 109 H Carbon Dioxide 24 POC Total CO2 Anion Gap 5.0 POC Anion Gap POC BUN BUN 14 Creatinine 0.96 POC Creatinine Est Cr Clr Drug Dosing 47.6 Est GFR ( Amer) 66.6 Est GFR (Non-Af Amer) 57.4 BUN/Creatinine Ratio 15.0 Glucose 120 H POC Glucose POC Glucose (other) Estimat Average Glucose 123 Hemoglobin A1c 5.9 H Calcium 9.2 POC Ioniz Calcium Veronica Phosphorus 3.5 Magnesium 1.7 L Total Bilirubin AST ALT Alkaline Phosphatase Total Creatine Kinase CK-MB (CK-2) CK/CKMB % Calc POC Troponin I Troponin I Pending Total Protein Albumin Globulin Albumin/Globulin Ratio Triglycerides 248 H Cholesterol 174 LDL Cholesterol, Calc 87 VLDL Cholesterol, Calc 50 HDL Cholesterol 37 Cholesterol/HDL Ratio 5 Lipase TSH Specimen Hemolysis Urine Color Urine Appearance Urine pH Ur Specific [place] Urine Protein Urine Glucose (UA) Urine Ketones Urine Blood Urine Nitrite Urine Bilirubin Urine Urobilinogen Ur Leukocyte Esterase Urine WBC (Auto) Urine RBC (Auto) U Hyaline Cast (Auto) U Epithel Cells (Auto) Urine Bacteria (Auto) Nasal Screen MRSA (PCR) Medications Administered Current Inpatient Medications Acetaminophen (Tylenol) 650 mg PO Q4H PRN PRN Reason: Mild Pain (scale 1-3) Stop: 08/16/19 10:18 Aspirin (Ecotrin Ectab) 81 mg PO QAM [facility] Stop: 08/17/19 08:59 Atorvastatin Calcium (Lipitor) 80 mg PO QAM [facility] Stop: 08/17/19 08:59 Levothyroxine Sodium (Synthroid) 25 mcg PO Q2D@0630 [facility] Stop: 08/17/19 06:29 Last Admin: 07/18/19 06:35 Dose: 25 mcg Documented by: Levothyroxine Sodium (Synthroid) 50 mcg PO Q2D@0630 [facility] Stop: 08/18/19 06:29 Lorazepam (Ativan) 0.5 mg PO Q6 PRN PRN Reason: Anxiety Stop: 08/17/19 07:59 Metoprolol Tartrate (Lopressor) 25 mg PO BID [facility] Stop: 08/16/19 20:59 Last Admin: 07/17/19 20:03 Dose: 25 mg Documented by: Miscellaneous (Icu Protocol For Hyperglycemia) 1 ea N/A PRN PRN; Protocol PRN Reason: Hyperglycemia Protocol Stop: 07/19/19 10:18 Ondansetron HCl (Zofran) 4 mg IV Q6H PRN PRN Reason: Nausea And Vomiting Stop: 08/16/19 10:18 Ticagrelor (Brilinta) 90 mg PO BID [facility] Stop: 12/15/19 20:59 Last Admin: 07/17/19 20:03 Dose: 90 mg Documented by: PG Care Time/CCT Total # of Minutes Spent Total Time Spent with Patient: Total time spent is greater than 50% in coordination of care (as documented) at patient's floor/unit and/or counseling patient: (1) ST elevation (STEMI) myocardial infarction Involved coronary artery: unspecified coronary artery Qualified Code(s): I21.3 - ST elevation (STEMI) myocardial infarction of unspecified site
[2019-07-18] MEDS ORDERED: ASPIRIN 81 MG ECTAB PO SCH (09:00)
[2019-07-18] MEDS ORDERED: LEVOTHYROXINE PO SCH (09:00)
[2019-07-18] MEDS: TICAGRELOR 90 MG TAB PO SCH ×2 (09:11→20:06)
[2019-07-18] MEDS: ASPIRIN 81 MG ECTAB PO SCH (09:12)
[2019-07-18] MEDS: ATORVASTATIN 40 MG TAB PO SCH (09:12)
[2019-07-18] MEDS: METOPROLOL TARTRATE 25 MG TAB PO SCH ×2 (09:12→20:06)
--- NOTE | 2019-07-18 18:05 | Cardiology Progress Note ---
Date of Service July 18, 2019 Assessment & Plan (1) ST elevation (STEMI) myocardial infarction: (2) Cardiomyopathy, ischemic: (3) CAD (coronary artery disease): (4) S/P coronary artery stent placement: (5) Tobacco abuse: (6) HTN (hypertension): ASSESSMENT/PLAN: 1. STEMI: Acute circumflex severe stenosis status post PCI. No further angina. Continue aspirin 81 mg daily indefinitely. Continue Brilinta for at least 1 year. Continue beta-apolinar and consider metoprolol succinate on discharge. Agree with initiation of LAZARO-inhibitor however her blood pressure has mostly been hypotensive throughout the day with systolic blood pressures in the 80s to 90s. If blood pressure better, consider low-dose LAZARO-inhibitor. Agree with high-intensity statin therapy. Cardiac rehabilitation recommended and she was agreeable. 2. CAD status post PCI: Circumflex and LAD PCI performed on presentation. Continue dual anti-platelet therapy as above. Continue other medical therapy as above. Nitroglycerin p.r.n. on discharge. 3. Ischemic cardiomyopathy: Mildly reduced LV systolic function on echo. She appears euvolemic. 4. Tobacco abuse: Recommended that she stop smoking. 5. Hypertension: Carries a history of hypertension however she has been hypotensive today. Plan as above with beta-apolinar and consideration of LAZARO- inhibitor. 6. Disposition: Her primary foreign collection clerk is Dr. Rivera. Close follow-up on discharge. If no events overnight, would be okay for discharge from a cardiac standpoint tomorrow as long as she is hemodynamically stable and able to ambulate without symptoms. Please call with any other questions or concerns. Subjective No further angina. She denies chest pain, shortness of breath, syncope, near- syncope, palpitations, edema. She denies bleeding. She has not had any issues with her left radial cath site. She is very interested in being discharged soon. She asked if she could be discharged tonight but was agreeable to stay till tomorrow. She is alone in her hospital room. Review of systems: As above. Physical Exam Physical Exam: Gen.: No acute distress. Alert and oriented. HEENT: Anicteric sclera. Neck: No JVD. Cardiac: Regular. Normal S1-S2. No murmurs, rubs, or gallops. Pulmonary: Clear to auscultation bilaterally without wheezes, rales, or rhonchi. Abdomen: Soft, nontender, nondistended, with normoactive bowel sounds. No bruits noted. Extremities: Left radial cath site is clean, dry, and intact without erythema or discharge. 2+ bilateral radial pulse. No edema or cyanosis. Psychiatric: Affect appears appropriate. Results & Data Vital Signs (Past 12 Hours) Vital Signs Temp Pulse Pulse Resp BP BP Pulse Ox 07/18/19 15:45 36.4 C L 68 23 95/71 L 97 07/18/19 12:04 36.9 C 74 23 89/64 L 96 07/18/19 09:10 36.7 C 68 19 98/68 L 96 07/18/19 09:00 66 22 81/59 L 94 07/18/19 08:01 75 16 94/69 L 95 07/18/19 07:01 68 18 98/70 L 95 07/18/19 06:00 76 21 104/66 97 Laboratory Results Laboratory Results - last 24 hr 07/17/19 07/18/19 07/18/19 22:18 04:45 04:45 WBC 9.68 RBC 4.18 L Hgb 14.0 Hct 39.7 MCV 95.0 MCH 33.5 MCHC 35.3 RDW Std Deviation 45.9 RDW Coeff of Vanessa 13.3 Plt Count 246 MPV 9.8 Immature Gran % (Auto) 0.1 Neut % (Auto) 75.1 Lymph % (Auto) 17.6 [place] % (Auto) 6.4 Eos % (Auto) 0.6 Baso % (Auto) 0.2 Immature Gran # (Auto) 0.01 Neut # (Auto) 7.27 H Lymph # (Auto) 1.70 [place] # (Auto) 0.62 H Eos # (Auto) 0.06 Baso # (Auto) 0.02 Sodium 138 Potassium 4.2 Chloride 109 H Carbon Dioxide 24 Anion Gap 5.0 BUN 14 Creatinine 0.96 Est Cr Clr Drug Dosing 47.6 Est GFR ( Amer) 66.6 Est GFR (Non-Af Amer) 57.4 BUN/Creatinine Ratio 15.0 Glucose 120 H Estimat Average Glucose Hemoglobin A1c Calcium 9.2 Phosphorus 3.5 Magnesium 1.7 L Troponin I 27.700 H* Triglycerides 248 H Cholesterol 174 LDL Cholesterol, Calc 87 VLDL Cholesterol, Calc 50 HDL Cholesterol 37 Cholesterol/HDL Ratio 5 07/18/19 07/18/19 04:45 07:57 WBC RBC Hgb Hct MCV MCH MCHC RDW Std Deviation RDW Coeff of Vanessa Plt Count MPV Immature Gran % (Auto) Neut % (Auto) Lymph % (Auto) [place] % (Auto) Eos % (Auto) Baso % (Auto) Immature Gran # (Auto) Neut # (Auto) Lymph # (Auto) [place] # (Auto) Eos # (Auto) Baso # (Auto) Sodium Potassium Chloride Carbon Dioxide Anion Gap BUN Creatinine Est Cr Clr Drug Dosing Est GFR ( Amer) Est GFR (Non-Af Amer) BUN/Creatinine Ratio Glucose Estimat Average Glucose 123 Hemoglobin A1c 5.9 H Calcium Phosphorus Magnesium Troponin I 19.200 H* Triglycerides Cholesterol LDL Cholesterol, Calc VLDL Cholesterol, Calc HDL Cholesterol Cholesterol/HDL Ratio Diagnostic Findings Telemetry personally reviewed: No arrhythmia. ECG personally reviewed: ECG 07/18/2019: Sinus rhythm 70 bpm. Inferolateral T-wave abnormality. LBBB. ST-elevation no longer present in inferior leads. Echo reviewed. Echo 07/18/2019: Normal LV size with mildly reduced systolic function. EF 45- 50%. Akinesis of the inferolateral wall. Mild to moderate LVH. Mild MR. Cardiac catheterization 07/17/2019: Mid LAD 80-90%. D1 30-40%. Mid circumflex 40%. Acute early distal circumflex 99%. Distal circumflex PCI 2.5 x 15 mm yue NARCISO. Mid LAD PCI with 2.5 x 18 mm yue NARCISO. Medications Administered Current Inpatient Medications Acetaminophen (Tylenol) 650 mg PO Q4H PRN PRN Reason: Mild Pain (scale 1-3) Stop: 08/16/19 10:18 Aspirin (Ecotrin Ectab) 81 mg PO [facility] Stop: 08/17/19 08:59 Last Admin: 07/18/19 09:12 Dose: 81 mg Documented by: Atorvastatin Calcium (Lipitor) 80 mg PO [facility] Stop: 08/17/19 08:59 Last Admin: 07/18/19 09:12 Dose: 80 mg Documented by: Levothyroxine Sodium (Synthroid) 25 mcg PO Q2D@0630 [facility] Stop: 08/17/19 06:29 Last Admin: 07/18/19 06:35 Dose: 25 mcg Documented by: Levothyroxine Sodium (Synthroid) 50 mcg PO Q2D@0630 [facility] Stop: 08/18/19 06:29 Lorazepam (Ativan) 0.5 mg PO Q6 PRN PRN Reason: Anxiety Stop: 08/17/19 07:59 Metoprolol Tartrate (Lopressor) 25 mg PO BID [facility] Stop: 08/16/19 20:59 Last Admin: 07/18/19 09:12 Dose: 25 mg Documented by: Ondansetron HCl (Zofran) 4 mg IV Q6H PRN PRN Reason: Nausea And Vomiting Stop: 08/16/19 10:18 Ticagrelor (Brilinta) 90 mg PO BID [facility] Stop: 08/16/19 20:59 Last Admin: 07/18/19 09:11 Dose: 90 mg Documented by: PG Care Time/CCT Total # of Minutes Spent Total Time Spent with Patient: Total time spent is greater than 50% in coordination of care (as documented) at patient's floor/unit and/or counseling patient: (1) ST elevation (STEMI) myocardial infarction Involved coronary artery: unspecified coronary artery Qualified Code(s): I21.3 - ST elevation (STEMI) myocardial infarction of unspecified site
[2019-07-18] MEDS ORDERED: LORazepam 0.25 MG/0.5 ML VIAL IV PRN (20:57)
[2019-07-18] MEDS ORDERED: LORazepam 2 MG/4 ML VIAL ONE (21:06)
[2019-07-18] MEDS ORDERED: LORazepam 0.5 MG/1 ML VIAL IV STA (23:24)
[2019-07-19] MEDS ORDERED: LEVOTHYROXINE SODIUM 50 MCG TABLET PO SCH (06:30)
[2019-07-19 07:18] LABS: BUN Creatinine Ratio 15.2 (10-20); Calcium 8.9 mg/dl (8.5-10.1); Creatinine Clr Calc Pharmacy 41.5 ml/min; Est GFR (African American) 56.5; Est GFR (Non-African American) 48.7; Potassium 3.9 mmol/L (3.5-5.1)
[2019-07-19] MEDS: ATORVASTATIN 40 MG TAB PO SCH (08:55)
[2019-07-19] MEDS: METOPROLOL TARTRATE 25 MG TAB PO SCH (08:55)
[2019-07-19] MEDS: TICAGRELOR 90 MG TAB PO SCH (08:55)
[2019-07-19] MEDS: ASPIRIN 81 MG ECTAB PO SCH (08:55)
--- NOTE | 2019-07-19 10:40 | Cardiology Progress Note ---
Date of Service July 19, 2019 Assessment & Plan (1) ST elevation (STEMI) myocardial infarction: (2) Cardiomyopathy, ischemic: (3) CAD (coronary artery disease): (4) S/P coronary artery stent placement: (5) Tobacco abuse: (6) HTN (hypertension): ASSESSMENT/PLAN: 1. STEMI: Acute circumflex severe stenosis status post PCI. No further angina. Continue aspirin 81 mg daily indefinitely. Continue Brilinta for at least 1 year. Anti-platelet recommendations discussed with her. Continue beta-apolinar and consider metoprolol succinate on discharge. Will initiate lisinopril 2.5 mg today as her blood pressure has improved. She was on losartan 100 mg at home, but would discharge on LAZARO-inhibitor in place of ARB. Agree with high- intensity statin therapy. Cardiac rehabilitation recommended and she was agreeable. 2. CAD status post PCI: Circumflex and LAD PCI performed on presentation. Continue dual anti-platelet therapy as above. Continue other medical therapy as above. Nitroglycerin p.r.n. on discharge. 3. Ischemic cardiomyopathy: Mildly reduced LV systolic function on echo. She appears euvolemic. Denies symptoms of heart failure. 4. Tobacco abuse: Recommended that she stop smoking. 5. Hypertension: She carries a history of hypertension and takes losartan and hydralazine home. She is now on beta-apolinar and initiating low-dose lisinopril today. Given her presentation, would replace hydralazine and losartan with LAZARO- inhibitor. 6. Disposition: Her primary trim attacher is Dr. Rivera. Close follow-up on discharge. She was encouraged to walk in the hallway. If she has no symptoms and no other issues, can be discharged home from a cardiac standpoint. Patient care discussed with Dr. Mccullough with primary hospitalist service. Subjective She denies chest pain, shortness of breath, syncope, near-syncope, palpitations, edema, or bleeding. She denies any issues with her left radial cath site. She wants to go home. Her son, Jose, is present at the bedside. Review of systems: As above. Physical Exam Physical Exam: Gen.: No acute distress. Alert and oriented. HEENT: Anicteric sclera. Neck: No JVD. Cardiac: Regular, without ectopy. Normal S1-S2. No murmurs, rubs, or gallops. Pulmonary: Clear to auscultation bilaterally without wheezes, rales, or rhonchi. Abdomen: Soft, nontender, nondistended, with normoactive bowel sounds. No bruits noted. Extremities: Left radial cath site is clean, dry, and intact without erythema or discharge. 2+ left radial pulse. No edema or cyanosis. Psychiatric: Affect appears appropriate. Results & Data Vital Signs (Past 12 Hours) Vital Signs Temp Pulse Resp BP Pulse Ox 07/19/19 07:51 36.8 C 80 19 101/70 93 07/19/19 04:38 36.7 C 108 H 20 120/75 99 07/19/19 01:10 86 16 112/46 L Laboratory Results Laboratory Results - last 24 hr 07/19/19 05:55 Sodium 136 Potassium 3.9 Chloride 105 Carbon Dioxide 24 Anion Gap 8.0 BUN 17 Creatinine 1.10 Est Cr Clr Drug Dosing 41.5 Est GFR ( Amer) 56.5 Est GFR (Non-Af Amer) 48.7 BUN/Creatinine Ratio 15.2 Glucose 112 H Calcium 8.9 Diagnostic Findings Telemetry personally reviewed: Sinus rhythm. No arrhythmia. Medications Administered Current Inpatient Medications Acetaminophen (Tylenol) 650 mg PO Q4H PRN PRN Reason: Mild Pain (scale 1-3) Stop: 08/16/19 10:18 Aspirin (Ecotrin Ectab) 81 mg PO [facility] Stop: 08/17/19 08:59 Last Admin: 07/19/19 08:55 Dose: 81 mg Documented by: Atorvastatin Calcium (Lipitor) 80 mg PO [facility] Stop: 08/17/19 08:59 Last Admin: 07/19/19 08:55 Dose: 80 mg Documented by: Levothyroxine Sodium (Synthroid) 25 mcg PO Q2D@0630 [facility] Stop: 08/17/19 06:29 Last Admin: 07/18/19 06:35 Dose: 25 mcg Documented by: Levothyroxine Sodium (Synthroid) 50 mcg PO Q2D@0630 [facility] Stop: 08/18/19 06:29 Last Admin: 07/19/19 05:08 Dose: 50 mcg Documented by: Lorazepam (Ativan) 0.5 mg PO Q6 PRN PRN Reason: Anxiety Stop: 08/17/19 07:59 Last Admin: 07/18/19 20:06 Dose: 0.5 mg Documented by: Metoprolol Tartrate (Lopressor) 25 mg PO BID [facility] Stop: 08/16/19 20:59 Last Admin: 07/19/19 08:55 Dose: 25 mg Documented by: Ondansetron HCl (Zofran) 4 mg IV Q6H PRN PRN Reason: Nausea And Vomiting Stop: 08/16/19 10:18 Ticagrelor (Brilinta) 90 mg PO BID [facility] Stop: 08/16/19 20:59 Last Admin: 07/19/19 08:55 Dose: 90 mg Documented by: PG Care Time/CCT Total # of Minutes Spent Total Time Spent with Patient: Total time spent is greater than 50% in coordination of care (as documented) at patient's floor/unit and/or counseling patient: (1) ST elevation (STEMI) myocardial infarction Involved coronary artery: unspecified coronary artery Qualified Code(s): I21.3 - ST elevation (STEMI) myocardial infarction of unspecified site
[2019-07-19] MEDS ORDERED: LISINOPRIL 2.5 MG TAB PO SCH (10:45)
--- NOTE | 2019-07-19 14:50 | Discharge Summary ---
Date of Service July 19, 2019 Admission HPI Per Admitting Provider 78 yo female with history of tobacco abuse, AAA repair who presented early this morning with c/o chest tightness. She said that for the past three days she has been having intermittent chest pain and tightness. Described it as a squeezing sensation. This was a new symptom for her, denied every having chest pain with exertion or at rest. The pain became much more intense this morning around 3am. It kept her up, the pain was severe. Associated with several episodes of diaphoresis. She denied any dyspnea or nausea. The pain did not radiate. She came to the ED this morning after a few hours and the pain was not improving. In the ED she had a prior LBBB but there was new evidence of ST depressions and she was taken for emergent heart catheterization. Left heart cath showed coronary artery disease with a 99% occlusion in the distal circumflex thought to be the culprit lesion with her STEMI. There was also a 90% stenosis in her LAD that was fixed with NARCISO. She was loaded with Brilinta in addition to aspirin and she transferred to the ICU in stable condition. On my visit she denies any further chest pain or pressure. She ate some lunch and tolerated well. No nausea or dyspnea. Principal Diagnosis STEMI Discharge Exam Constitutional WD/WN, vitals as above Eyes PERRL, conjunctivae normal, anicteric sclerae ENMT external ear and nose normal, oropharynx normal Neck trachea midline, no thyromegaly Respiratory normal respiratory effort, lungs clear to auscultation Cardiovascular RRR, no murmur, no edema Gastrointestinal (Abdomen) normal bowel sounds, soft, nontender, no hepatosplenomegaly Musculoskeletal no cyanosis or clubbing, extremities motor strength 5/5 Skin no rashes, warm and dry (numerous tatoos) Neurologic patellar DTR's 2+ bilat, sensation intact and PERRL, EOMI, accommodation nl, no face palsy, no dysarthria Psychiatric A+Ox3, euthymic affect Lymphatic no cervical or axillary lymphadenopathy Discharge Data Allergies Allergy/AdvReac Type Severity Reaction Status Date / Time No Known Allergies Allergy Unverified 09/15/16 12:44 Consultations 07/17/19 10:23 Consult Cardiac Rehabilitation Routine 07/17/19 10:24 Consult Case Management - Discharge Planning Routine Consult Health Sciences Manager Routine 07/17/19 11:01 Consult Case Management - Discharge Planning Routine Consult Health Sciences Manager Routine 07/18/19 12:12 Consult Cardiology Routine Procedures Performed Operation Date: 07/17/19 08:30 Actual Procedures p Aspiration/PCI w/NARCISO for Stemi - Josh Carrington MD s Cath, Coronaries ONLY (no LV) - Josh Carrington MD s Cineradiography w/Routine Exam - Josh Carrington MD s Drug Eluting Stent each ADDTL Vessel - Josh Carrington MD s Ultrasound Vascular Access - Josh Carrington MD Ordered Studies 07/17/19 08:27 CL Cath Imgs for PACS use only Stat Hospital Course (1) ST elevation (STEMI) myocardial infarction: heart alert morning of 07/17 emergent cath showed 99% in distal circumflex and a 90% in the LAD two NARCISO placed continue Brilinta and aspirin will need DAPT for a year, then just aspirin continue Lipitor 80mg echocardiogram with EF of 40-45% transfered out of ICU 07/18 renal function stable after cath will d/c home on Brilinta, aspirin, Toprol 12.5mg daily and Lisinopril 2.5mg follow up with PCP in one week and cardiology in 2-3 weeks (2) Cardiomyopathy, ischemic: EF on echo is 40-45%, reduced most likely due to coronary artery disease d/c home on Toprol 12.5mg daily, Lisinopril 2.5mg daily can be titrated upward as outpatient if BP allows (3) HTN (hypertension): stopped Hydralazine that she was previously on replaced with Toprol 12.5mg daily, Lisinopril 2.5mg BP stable on d/c (4) Chronic kidney disease, stage III (moderate): Cr at baseline, stable stable after contrast (5) Tobacco abuse: counseled on quitting unlikely to stop (6) S/P AAA repair: (7) Alcohol withdrawal: drinks every evening, she states only a glass of linnea but may be more Ativan q6 PRN while admitted she will likely resume drinking on discharge Total Time Total Time Spent Total Time Spent (In Minutes): 42 minutes Total Time Includes: Examination of the Patient, Discharge Planning, Medication Reconciliation, Communication With Other Providers (Dr. Levin) and Other (long discussion with patient and her son about medications) Discharge Plan Discharge Items Patient Disposition: Home - Self-Care Reason For Visit: STEMI Discharge Diagnosis: ST elevated AR Condition on Discharge: Good Goals: improve disease control with medications Activity: Per Instructions section Lifting: None Bathing: No limitations Sexual Activity: After two weeks Exercise/Sports: Gradually increase as tolerated Driving/Machine Use: Resume 3 days after discharge Weightbearing: Full weightbearing Non-emergency contact: Primary Care Provider and Wire Bender Hand Call non-emergency contact if: you have any medication questions, your symptoms worsen and you have a fever Follow-up/Referrals: PCP,NO [Primary Care Provider] - Diet: Heart Healthy Addtl Attending Provider Instructions: Medications: - TOPROL: take 1/2 a tablet once a day in the morning, start this tomorrow - LISINOPRIL: take 2.5mg daily - LIPITOR: 80mg (two tablets) once a day - BRILINTA: 90mg twice a day, next dose due this evening ST elevated AR (acute heart attack) treated with heart cath, two stents placed, one in LAD and one in left circumflex you will now need to be on both aspirin and Brilinta (new medication) you NEED to take both of these to keep stent open you are also started on Lipitor, Lisinopril, Toprol please refer to medication list pay attention to both NEW medications and medications that were STOPPED taking the new medications will decrease your risk of future heart attack FOLLOW UP - you need to follow up with Dr. Carrington, cardiology, in 2-3 weeks, call his office for appointment, - call Dr. Rondon's office for hospital follow up to be seen in one week, Pending Studies at Discharge: No Stand-Alone Forms: My [facility] [employer], Smoking Cessation Medications and DC Order Prescriptions: New Brilinta 90 mg Tablet 90 mg PO BID 30 Days Qty: 60 RF: 3 atorvastatin 40 mg Tablet 80 mg PO QAM 30 Days Qty: 60 RF: 3 lisinopril 2.5 mg Tablet 2.5 mg PO QAM 30 Days Qty: 30 RF: 3 metoprolol succinate [Toprol XL] 25 mg tablet extended release 24 hr 12.5 mg PO DAILY 30 Days Qty: 15 RF: 3 Continued aspirin [Adult Low Dose Aspirin] 81 mg tablet,delayed release (DR/EC) 81 mg PO DAILY RF: 0 cholecalciferol (vitamin D3) 2,000 unit tablet 4,000 units PO DAILY RF: 0 levothyroxine 50 mcg tablet 50 mcg PO Q OTHER DAY RF: 0 levothyroxine 25 mcg tablet 25 mcg PO Q OTHER DAY RF: 0 Discontinued bisoprolol fumarate 5 mg tablet 5 mg PO DAILY RF: 0 losartan 100 mg tablet 100 mg PO DAILY Qty: 90 RF: 1 hydralazine 10 mg tablet 10 mg PO BID RF: 0 ezetimibe 10 mg tablet 10 mg PO DAILY RF: 0 Discharge Orders: Discharge Order (Routine); Ordered 07/19/19 Ordered By: Jeanmarie Mccullough Admission Data Admit Date/Time: 07/17/19 10:28 Attending Provider: Jeanmarie Mccullough Admit Provider: Jeanmarie Mccullough Primary Care Provider: PCP,NO Other Providers: Kip Aiken ; Josh Carrington Other Interventions: Discharge Summary Assessment (RN) Last Done: 07/19/19 11:02 DC Date/Time DO NOT enter until pt leaves facility: 07/19/19 11:15
== END 2019-07-19 11:15 | disposition home or self-care (01) | DRG 247 ==
LOC: ED 08:22 → CC 09:08 → 1E 09:08 → 2S 07-19 00:26
PROC: CLB.CCO (2019-07-17 08:30)

== ENCOUNTER 2019-08-31 10:04 | Inpatient (IN) ==
[2019-08-31] MEDS ORDERED: ALBUT/IPRATROP 3MG/0.5MG NEB 3 ML VIAL NEB STA (10:19)
[2019-08-31 10:31] LABS: Basophils # (auto) 0.02 K/uL (0-0.2); Basophils % (auto) 0.2 %; Eosinophils # (auto) 0.03 K/uL (0-0.5); Eosinophils % (auto) 0.4 %; Hematocrit (blood only) 26.2 % (37-47); Hemoglobin 8.4 g/dL (12.0-16.0); Immature Granulocytes # (auto) 0.02 K/uL (0.00-0.02); Immature Granulocytes % (auto) 0.2 %; Lymphocytes # (auto) 1.28 K/uL (1.2-3.4); Mean Corpuscular Hemoglobin 31.6 pg (25-34); Mean Corpuscular Hgb Conc 32.1 g/dL (32-36); Mean Corpuscular Volume 98.5 fL (80-100); Mean Platelet Volume 9.4 fL (7.4-10.4); Monocytes # (auto) 0.57 K/uL (0.11-0.59); Monocytes % (auto) 6.7 %; Neutrophils # (auto) 6.62 K/uL (1.4-6.5); Neutrophils % (auto) 77.5 %; Platelet Count 380 K/uL (130-400); RDW Coefficient of Variation 14.6 % (11.5-14.5); RDW Standard Deviation 52.6 fL (36.4-46.3); Red Blood Count 2.66 M/uL (4.2-5.4); White Blood Count 8.54 K/uL (4.8-10.8)
--- NOTE | 2019-08-31 10:43 | XRay Report ---
XR chest 1V portable CLINICAL HISTORY: weakness dyspnea COMPARISON STUDY: 07/17/2019 FINDINGS: Chronic parenchymal and fibrotic changes left lung base. Slight parenchymal prominence right base considered chronic and unchanged. Min number lungs are clear. No well-defined consolidative infiltrate. IMPRESSION: Chronic bibasilar fibrotic change. No acute process. ACT 112: Negative or not required by law. The above report was generated using voice recognition software. It may contain grammatical, syntax or spelling errors. Electronically signed by: Ketan Colunga M.D. 08/31/2019 10:41 AM
[2019-08-31 10:49] LABS: Alanine Aminotransferase 23 U/L (12-78); Albumin Level 3.2 gm/dl (3.4-5.0); Aspartate Aminotransferase 21 U/L (15-37); BUN Creatinine Ratio 10.9 (10-20); Blood Urea Nitrogen 14 mg/dl (7-18); Calcium 8.9 mg/dl (8.5-10.1); Carbon Dioxide 21 mmol/L (21-32); Chloride 107 mmol/L (98-107); Creatinine Clr Calc Pharmacy 36.9 ml/min; Est GFR (African American) 47.9; Est GFR (Non-African American) 41.4; Glucose 173 mg/dl (70-99); Magnesium 1.7 mg/dl (1.8-2.4); Sodium 137 mmol/L (136-145)
[2019-08-31 10:56] LABS: Partial Thromboplastin Ratio 0.9; Partial Thromboplastin Time 25.4 Seconds (21.0-31.0)
--- NOTE | 2019-08-31 10:56 | CT Scan Report ---
HEAD CT NONCONTRAST CT DOSE: 537.48 mGy.cm HISTORY: weakness TECHNIQUE: Multiaxial CT images of the head were performed without the use of intravenous contrast. A utomated exposure control was utilized for this study. A dose lowering technique was utilized adheri ng to the principles of ALARA. Comparison: None. Findings: The paranasal sinuses and mastoid air cells are clear. The calvarium and skull base are int act. There is no mass, hematoma, midline shift, acute infarct. White matter hypodensity is nonspecifi c but suggestive of microvascular ischemic change. The ventricles and sulci demonstrate mild age-rela ishan involutional changes. Impression: No acute intracranial abnormality. Atrophy and microvascular ischemic changes. ACT 112: Negative or not required by law. Electronically signed by: Jarocho Vazquez M.D. 08/31/2019 10:55 AM
[2019-08-31 11:00] LABS: Albumin Globulin Ratio 0.8 (0.9-2); Alkaline Phosphatase 172 U/L (45-117); Bilirubin,Total 0.4 mg/dl (0.2-1); Total Protein 7.2 gm/dl (6.4-8.2); Troponin I < 0.015 ng/ml (0-0.045)
[2019-08-31] MEDS ORDERED: FAMOTIDINE 20MG IV PUSH 20 MG/5 ML SYR IV STA (11:15)
[2019-08-31] MEDS ORDERED: PANTOprazole 40 MG TAB PO STA (11:15)
[2019-08-31] MEDS ORDERED: SODIUM CHLORIDE 0.9% 250 ML IV PRN ×3 (11:15→16:07)
[2019-08-31] MEDS ORDERED: MAGNESIUM SULFATE / D5W 1 GM/100 ML BAG IV ONE (11:15)
[2019-08-31 11:18] LABS: Appearance Urine Clear (Clear); Bacteria Urine Automated Negative (Negative); Bilirubin Urine Negative (Negative); Blood Urine Negative (Negative); Cast Urine Automated 0 /lpf (0-5); Color Urine Yellow; Glucose Urine UA Negative (Negative); Ketones Urine Negative (Negative); Leukocyte Esterase Urine 1+ (Negative); Nitrite Urine Negative (Negative); Protein Urine Trace (Negative); RBC Urine Automated 0-4 /hpf (0-4); Specific Gravity Urine 1.004 (1.000-1.030); Urobilinogen Urine Negative (Negative)
--- NOTE | 2019-08-31 12:59 | History & Physical Report ---
Date of Service August 31, 2019 Assessment & Plan (1) Anemia: Patient with symptomatic anemia. Hgb = 8.4, HCT = 26.2 which is down from 14 and 39.7, respectively on 07/18/2019. Normochromic, normocytic. Fecal occult blood positive stools noted in the ER. Patient denies any hematuria, m nano, hematochezia. No bleeding or bruising. Recent ST elevated MT status post placement of drug-eluting stent x2 on 07/17/2019. She is on dual antiplatelet therapy with aspirin and Brilinta. Reports her last colonoscopy was years and years ago and she was told that she "should not eat popcorn" ? diverticulosis, patient is unsure. Admit to medical floor Maintain 2 large-bore peripheral IVs Transfuse 2 units of PRBCs -CBC every 12 hours. Transfuse for active bleed, symptomatic anemia, hemoglobin less than 7 GI consultationappreciate assistance Cardiology consultationappreciate assistance Per GI recommendation: We will start Protonix 40 mg IV twice daily We will keep n.p.o. after midnight for EGD in the morning Present on Admission?: Yes (2) Weakness: Patient with complaints of diffuse weakness as well as decreased exercise tolerance and dyspnea on exertion. Most likely secondary to symptomatic anemia with rapid decrease in H/H. She is neurologically intact with no focal deficits. Ambulates with assistance Treatment of anemia as above Present on Admission?: Yes (3) S/P coronary artery stent placement: Patient presented to [facility] on 07/17/[address] elevated MT status post cardiac catheterization status post stent placement to LAD and circumflex Continue aspirin and Brilinta for now. Patient does not have a rapid bleed and is hemodynamically stable. Hold lisinopril and metoprolol for now Cardiology consultation appreciated Present on Admission?: Yes (4) CAD (coronary artery disease): As above. Patient with CAD status post cardiac cath with stent placement x2 in July of this year Continue aspirin and Brilinta Continue atorvastatin Hold Toprol and lisinopril Cardiology consult -Patient has scheduled follow-up with Dr. Rivera next week Present on Admission?: Yes (5) Cardiomyopathy, ischemic: No evidence of volume overload at present Transfuse 2 units PRBCs Closely monitor volume status. Patient may need Lasix between units -Continue to monitor Present on Admission?: Yes (6) Chronic kidney disease, stage III (moderate): BUN and creatinine near baseline. Patient follows with Dr. Brooks and is due to see him soon. Avoid nephrotoxic agents Renal dosing were needed Repeat chemistry panel in a.m. Present on Admission?: Yes (7) Tobacco abuse: Patient reports smoking approximately 1 pack/day. States that she typically likes them and lets them burn and does not inhale Nicotine 14 mg patch Smoking cessation counseling Present on Admission?: Yes (8) HTN (hypertension): Blood pressure borderline low at present 100/70. Patient was notably orthostatic in the ER We will hold lisinopril and metoprolol for now Continue to monitor F/E/N -transfusion as above. Monitor electrolytes and replete as needed. N.p.o. after midnight Ppx - SCDs to bilateral LEs Code - Full Dispo - Admit to medical floor Present on Admission?: Yes History of Present Illness Chief Complaint: Weakness, dyspnea on exertion, decreased exercise tolerance Primary Care Provider: Courtney Naik MD Kp Azul is a 78-year-old female with history of CAD, ischemic cardiomyopathy, hypertension, CKD stage III, and hypothyroidism. She was recently admitted on 07/17/2019 with complaint of chest tightness, found to have ST depressions on her EKG. She was urgently taken to [facility] and found to have occlusion of distal circumflex and LAD. She had placement of 2 drug- eluting stents with adequate reperfusion attained. She was started on aspirin and Brilinta and discharged home in stable condition on 07/19/2019. She is scheduled to see Dr. Castro again in follow-up next week. She presents today with complaint of progressive weakness x1 week as well as dyspnea on exertion and decreased exercise tolerance. Her symptoms began with bilateral lower extremity weakness but now she complains of generalized weakness. She denies chest pain/palpitations/dizziness/syncope. Denies nausea/vomiting/diarrhea/constipation. Denies melena/hematoch ezia/hematemesis/hematuria. She denies bruising or bleeding On arrival to the ER she was found to be afebrile, hemodynamically stable. Intake labs revealed hemoglobin of 8.4 and hematocrit of 26.2 which was decreased significantly from prior values of 14 and 39.7, respectively on 07/18/2019. FOBT = positive in the ER ER course: Albuterol, Pepcid, magnesium, Protonix, normal saline Allergies Allergy/AdvReac Type Severity Reaction Status Date / Time No Known Allergies Allergy Unverified 08/31/19 11:28 Home Medications Home Medications Medication Instructions Recorded Confirmed Type aspirin 81 mg tablet,delayed 81 mg PO DAILY 05/26/19 08/31/19 History release cholecalciferol (vitamin D3) 2,000 4,000 units PO DAILY tab 05/26/19 08/31/19 History unit tablet levothyroxine 25 mcg PO Q OTHER DAY 07/17/19 08/31/19 History levothyroxine 50 mcg PO Q OTHER DAY 07/17/19 08/31/19 History atorvastatin 80 mg PO QAM 30 Days #60 tab 07/19/19 08/31/19 Rx lisinopril 2.5 mg PO QAM 30 Days #30 tab 07/19/19 08/31/19 Rx metoprolol succinate [Toprol XL] 12.5 mg PO DAILY 30 Days #15 tab 07/19/19 08/31/19 Rx ticagrelor [Brilinta] 90 mg PO BID 30 Days #60 tab 07/19/19 08/31/19 Rx Past Med/Surg History Medical History (Updated 08/31/19 @ 21:28 by Karoline Mcdonald DO) HTN (hypertension) (Chronic) Surgical History S/P AAA repair (Resolved) Family History Other Hypertension Social History Preferred Language: Lao Communication Ability: Effective Personnel Clerk Required: No Beliefs That Will Affect Care: None marital status: Current Living Situation: Spouse Other Information That Helps Us Care for You: No Feels Safe at Home: Yes Safety Concerns: Feels Safe At This Time Smoking Status: Current every day smoker Tobacco Type: cigarettes ; Cigarettes Per Day: 20 ; Do You Dip or Chew Tobacco: No ; Second Hand Exposure: No ; Tobacco Cessation Education Requested by Patient: No Hx Alcohol Use: Yes Alcohol type: wine Hx Substance Use: No Review of Systems Review of Systems: All systems reviewed & are unremarkable except as noted in HPI & below Physical Exam Physical Exam: General: patient resting comfortably, NAD, non-toxic in appearance, AA&O x 4 Skin: warm, dry, intact, no rashes or lesions HEENT: NC/AT, PERRL, EOMI, anicteric sclera, conjunctiva without injection, mild pallor, external ear normal to inspection and nontender, nares patent, moist mucus membranes, dentition intact, no oropharyngeal lesions, neck supple, trachea midline, no LAD, no thyromegaly, no JVD Heart: +S1/S2, regular, no m/r/g Lungs: equal air entry bilaterally, no rales/rhonchi/wheezes Abd: +BS, soft, NT/ND, no masses/organomegaly/ascites Ext: warm, 2+ pulses in UE/LE bilaterally, no clubbing/cyanosis or edema Neuro: nonfocal, patient AA&O x 4, speech intact, no facial droop, moving all extremities on command with equal strength 5/5 Results & Data Vital Signs (Past 12 Hours) Vital Signs Temp Pulse Pulse Resp BP BP Pulse Ox 08/31/19 12:31 62 16 100 08/31/19 12:30 61 19 100/70 100 08/31/19 12:15 60 16 100 08/31/19 12:01 64 19 94/52 L 100 08/31/19 12:00 67 16 100 08/31/19 11:45 62 17 100 08/31/19 11:35 64 19 114/75 100 08/31/19 11:31 66 17 100 08/31/19 11:30 65 19 114/75 100 08/31/19 11:15 66 19 100 08/31/19 11:10 100 08/31/19 11:08 70 19 119/76 100 08/31/19 11:07 63 17 100 08/31/19 11:06 66 19 119/76 100 08/31/19 11:01 66 19 88/71 L 08/31/19 11:00 79 24 08/31/19 10:54 67 72 17 103/67 111/99 100 08/31/19 10:50 81 08/31/19 10:30 64 20 100 08/31/19 10:29 65 18 100 08/31/19 10:15 75 17 96 08/31/19 10:11 73 17 100 08/31/19 10:09 74 18 124/75 99 08/31/19 10:04 36.6 C 72 20 124/75 100 Laboratory Results Lab Results 08/31/19 08/31/19 08/31/19 Range/Units 10:15 10:15 10:15 WBC 8.54 (4.8-10.8) K/uL RBC 2.66 L (4.2-5.4) M/uL Hgb 8.4 L (12.0-16.0) g/dL Hct 26.2 L (37-47) % MCV 98.5 (80-100) fL MCH 31.6 (25-34) pg MCHC 32.1 (32-36) g/dL RDW Std Deviation 52.6 H (36.4-46.3) fL RDW Coeff of Vanessa 14.6 H (11.5-14.5) % Plt Count 380 (130-400) K/uL MPV 9.4 (7.4-10.4) fL Immature Gran % (Auto) 0.2 % Neut % (Auto) 77.5 % Lymph % (Auto) 15.0 % [place] % (Auto) 6.7 % Eos % (Auto) 0.4 % Baso % (Auto) 0.2 % Immature Gran # (Auto) 0.02 (0.00-0.02) K/uL Neut # (Auto) 6.62 H (1.4-6.5) K/uL Lymph # (Auto) 1.28 (1.2-3.4) K/uL [place] # (Auto) 0.57 (0.11-0.59) K/uL Eos # (Auto) 0.03 (0-0.5) K/uL Baso # (Auto) 0.02 (0-0.2) K/uL PT 10.0 (9.0-12.0) Seconds INR 1.0 (0.9-1.1) APTT 25.4 (21.0-31.0) Seconds PTT Ratio 0.9 Sodium 137 (136-145) mmol/L Potassium 4.0 (3.5-5.1) mmol/L Chloride 107 (98-107) mmol/L Carbon Dioxide 21 (21-32) mmol/L Anion Gap 9.0 (3-11) BUN 14 (7-18) mg/dl Creatinine 1.26 H (0.6-1.2) mg/dl Est Cr Clr Drug Dosing 36.9 ml/min Est GFR ( Amer) 47.9 Est GFR (Non-Af Amer) 41.4 BUN/Creatinine Ratio 10.9 (10-20) Glucose 173 H (70-99) mg/dl POC Glucose (70-99) Calcium 8.9 (8.5-10.1) mg/dl Magnesium 1.7 L (1.8-2.4) mg/dl Total Bilirubin 0.4 (0.2-1) mg/dl AST 21 (15-37) U/L ALT 23 (12-78) U/L Alkaline Phosphatase 172 H (45-117) U/L Troponin I < 0.015 (0-0.045) ng/ml Total Protein 7.2 (6.4-8.2) gm/dl Albumin 3.2 L (3.4-5.0) gm/dl Globulin 4.0 (2.5-4.0) gm/dl Albumin/Globulin Ratio 0.8 L (0.9-2) TSH 3.180 (0.300-4.500) uIu/ml Urine Color Urine Appearance (Clear) Urine pH (4.5-7.5) Ur Specific [place] (1.000-1.030) Urine Protein (Negative) Urine Glucose (UA) (Negative) Urine Ketones (Negative) Urine Blood (Negative) Urine Nitrite (Negative) Urine Bilirubin (Negative) Urine Urobilinogen (Negative) Ur Leukocyte Esterase (Negative) Urine WBC (Auto) (0-5) /hpf Urine RBC (Auto) (0-4) /hpf U Hyaline Cast (Auto) (0-5) /lpf U Epithel Cells (Auto) (0-5) /lpf Urine Bacteria (Auto) (Negative) POC Stool Occult Blood (Negative) Blood Type Antibody Screen Crossmatch 08/31/19 08/31/19 08/31/19 Range/Units 10:50 11:14 11:15 WBC (4.8-10.8) K/uL RBC (4.2-5.4) M/uL Hgb (12.0-16.0) g/dL Hct (37-47) % MCV (80-100) fL MCH (25-34) pg MCHC (32-36) g/dL RDW Std Deviation (36.4-46.3) fL RDW Coeff of Vanessa (11.5-14.5) % Plt Count (130-400) K/uL MPV (7.4-10.4) fL Immature Gran % (Auto) % Neut % (Auto) % Lymph % (Auto) % [place] % (Auto) % Eos % (Auto) % Baso % (Auto) % Immature Gran # (Auto) (0.00-0.02) K/uL Neut # (Auto) (1.4-6.5) K/uL Lymph # (Auto) (1.2-3.4) K/uL [place] # (Auto) (0.11-0.59) K/uL Eos # (Auto) (0-0.5) K/uL Baso # (Auto) (0-0.2) K/uL PT (9.0-12.0) Seconds INR (0.9-1.1) APTT (21.0-31.0) Seconds PTT Ratio Sodium (136-145) mmol/L Potassium (3.5-5.1) mmol/L Chloride (98-107) mmol/L Carbon Dioxide (21-32) mmol/L Anion Gap (3-11) BUN (7-18) mg/dl Creatinine (0.6-1.2) mg/dl Est Cr Clr Drug Dosing ml/min Est GFR ( Amer) Est GFR (Non-Af Amer) BUN/Creatinine Ratio (10-20) Glucose (70-99) mg/dl POC Glucose (70-99) Calcium (8.5-10.1) mg/dl Magnesium (1.8-2.4) mg/dl Total Bilirubin (0.2-1) mg/dl AST (15-37) U/L ALT (12-78) U/L Alkaline Phosphatase (45-117) U/L Troponin I (0-0.045) ng/ml Total Protein (6.4-8.2) gm/dl Albumin (3.4-5.0) gm/dl Globulin (2.5-4.0) gm/dl Albumin/Globulin Ratio (0.9-2) TSH (0.300-4.500) uIu/ml Urine Color Yellow Urine Appearance Clear (Clear) Urine pH 7.0 (4.5-7.5) Ur Specific [place] 1.004 (1.000-1.030) Urine Protein Trace H (Negative) Urine Glucose (UA) Negative (Negative) Urine Ketones Negative (Negative) Urine Blood Negative (Negative) Urine Nitrite Negative (Negative) Urine Bilirubin Negative (Negative) Urine Urobilinogen Negative (Negative) Ur Leukocyte Esterase 1+ H (Negative) Urine WBC (Auto) 1-5 (0-5) /hpf Urine RBC (Auto) 0-4 (0-4) /hpf U Hyaline Cast (Auto) 0 (0-5) /lpf U Epithel Cells (Auto) 5-10 H (0-5) /lpf Urine Bacteria (Auto) Negative (Negative) POC Stool Occult Blood Positive A (Negative) Blood Type AB Positive Antibody Screen NEGATIVE Crossmatch See Detail 08/31/19 08/31/19 Range/Units 16:22 20:45 WBC 8.78 (4.8-10.8) K/uL RBC 3.06 L (4.2-5.4) M/uL Hgb 9.7 L (12.0-16.0) g/dL Hct 29.6 L (37-47) % MCV 96.7 (80-100) fL MCH 31.7 (25-34) pg MCHC 32.8 (32-36) g/dL RDW Std Deviation 53.0 H (36.4-46.3) fL RDW Coeff of Vanessa 15.0 H (11.5-14.5) % Plt Count 375 (130-400) K/uL MPV 9.4 (7.4-10.4) fL Immature Gran % (Auto) 0.2 % Neut % (Auto) 73.1 % Lymph % (Auto) 20.4 % [place] % (Auto) 5.7 % Eos % (Auto) 0.3 % Baso % (Auto) 0.3 % Immature Gran # (Auto) 0.02 (0.00-0.02) K/uL Neut # (Auto) 6.41 (1.4-6.5) K/uL Lymph # (Auto) 1.79 (1.2-3.4) K/uL [place] # (Auto) 0.50 (0.11-0.59) K/uL Eos # (Auto) 0.03 (0-0.5) K/uL Baso # (Auto) 0.03 (0-0.2) K/uL PT (9.0-12.0) Seconds INR (0.9-1.1) APTT (21.0-31.0) Seconds PTT Ratio Sodium (136-145) mmol/L Potassium (3.5-5.1) mmol/L Chloride (98-107) mmol/L Carbon Dioxide (21-32) mmol/L Anion Gap (3-11) BUN (7-18) mg/dl Creatinine (0.6-1.2) mg/dl Est Cr Clr Drug Dosing ml/min Est GFR ( Amer) Est GFR (Non-Af Amer) BUN/Creatinine Ratio (10-20) Glucose (70-99) mg/dl POC Glucose 103 H (70-99) Calcium (8.5-10.1) mg/dl Magnesium (1.8-2.4) mg/dl Total Bilirubin (0.2-1) mg/dl AST (15-37) U/L ALT (12-78) U/L Alkaline Phosphatase (45-117) U/L Troponin I (0-0.045) ng/ml Total Protein (6.4-8.2) gm/dl Albumin (3.4-5.0) gm/dl Globulin (2.5-4.0) gm/dl Albumin/Globulin Ratio (0.9-2) TSH (0.300-4.500) uIu/ml Urine Color Urine Appearance (Clear) Urine pH (4.5-7.5) Ur Specific [place] (1.000-1.030) Urine Protein (Negative) Urine Glucose (UA) (Negative) Urine Ketones (Negative) Urine Blood (Negative) Urine Nitrite (Negative) Urine Bilirubin (Negative) Urine Urobilinogen (Negative) Ur Leukocyte Esterase (Negative) Urine WBC (Auto) (0-5) /hpf Urine RBC (Auto) (0-4) /hpf U Hyaline Cast (Auto) (0-5) /lpf U Epithel Cells (Auto) (0-5) /lpf Urine Bacteria (Auto) (Negative) POC Stool Occult Blood (Negative) Blood Type Antibody Screen Crossmatch Diagnostic Findings XR chest 1V portable CLINICAL HISTORY: weakness dyspnea COMPARISON STUDY: 07/17/2019 FINDINGS: Chronic parenchymal and fibrotic changes left lung base. Slight parenchymal prominence right base considered chronic and unchanged. Min number lungs are clear. No well-defined consolidative infiltrate. IMPRESSION: Chronic bibasilar fibrotic change. No acute process. ACT 112: Negative or not required by law. The above report was generated using voice recognition software. It may contain grammatical, syntax or spelling errors. Electronically signed by: Ketan Colunga M.D. 08/31/2019 10:41 AM Dictated: 08/31/19 1041 Transcribed: 08/31/[address] CT DOSE: 537.48 mGy.cm HISTORY: weakness TECHNIQUE: Multiaxial CT images of the head were performed without the use of intravenous contrast. Automated exposure control was utilized for this study. A dose lowering technique was utilized adhering to the principles of ALARA. Comparison: None. Findings: The paranasal sinuses and mastoid air cells are clear. The calvarium and skull base are intact. There is no mass, hematoma, midline shift, acute infarct. White matter hypodensity is nonspecific but suggestive of microvascular ischemic change. The ventricles and sulci demonstrate mild age-related involutional changes. Impression: No acute intracranial abnormality. Atrophy and microvascular ischemic changes. ACT 112: Negative or not required by law. Electronically signed by: Jarocho Vazquez M.D. 08/31/2019 10:55 AM Dictated: 08/31/19 1052 Transcribed: 08/31/19 1052 ECG Additional Comments: Study shows sinus rhythm with occasional PVC, rate of 72, left bundle branch block (mentioned during prior admission as well), AL = 144, QRS = 124, QTc = 481 Code Status & VTE Plan Code Status Full code VTE Prophylaxis Plan VTE Prophylaxis will be ordered: Yes PG Care Time/CCT Total # of Minutes Spent Total Time Spent with Patient: Total time spent is greater than 50% in coordination of care (as documented) at patient's floor/unit and/or counseling patient: (1) CAD (coronary artery disease) Associated angina: without angina Coronary Disease-Associated Artery/Lesion type: [place] artery [place] vs. transplanted heart: [place] heart Qualified Code(s): I25.10 - Atherosclerotic heart disease of [place] coronary artery without angina pectoris (2) Anemia Anemia type: unspecified type Qualified Code(s): D64.9 - Anemia, unspecified (3) HTN (hypertension) Hypertension type: essential hypertension Qualified Code(s): I10 - Essential (primary) hypertension
[2019-08-31] MEDS ORDERED: ACETAMINOPHEN 325 MG TAB PO PRN (16:07)
--- NOTE | 2019-08-31 16:28 | History & Physical Report ---
Date of Service August 31, 2019 Assessment & Plan (1) Anemia: ddx includes PUD vs. AVM vs. diverticulosis vs. other etiology Recs: 1.start PPI protonix 40 mg IV BID 2.NPO post midnight 3. Proceed with EGD tomorrow to further evaluate 4. risks/benefits and procedure discussed with patient, who agrees to proceed rest as per primary team, trend h/h transfuse prn hgb <7, supportive care Thank you for allowing me to participate in the care of this patient. History of Present Illness Primary Care Provider: Courtney Naik MD 78 yo female with hx CAD s/p NARCISO 07/2019, on DAPT here with symptomatic anemia. GI consulted for this. She reports fatigue, weakness. FOBT noted to be positive on admission, hgb noted to be 8.4 from normal back in 07/2019. Cr noted to be 1.26, normal BUN. She denies any n/v, hematochezia, epistaxis, hematemesis, melena. No hx PUD, NSAID abuse, personal hx cancer. She notes previous colonoscopy 20 years ago that was wnl. No prior EGD. Otherwise denies any other symptoms at this time. Labs as above. No pertinent imaging to review, colonoscopy as above. Allergies Allergy/AdvReac Type Severity Reaction Status Date / Time No Known Allergies Allergy Unverified 08/31/19 11:28 Home Medications Home Medications Medication Instructions Recorded Confirmed Type aspirin 81 mg tablet,delayed 81 mg PO DAILY 05/26/19 08/31/19 History release cholecalciferol (vitamin D3) 2,000 4,000 units PO DAILY tab 05/26/19 08/31/19 History unit tablet levothyroxine 25 mcg PO Q OTHER DAY 07/17/19 08/31/19 History levothyroxine 50 mcg PO Q OTHER DAY 07/17/19 08/31/19 History atorvastatin 80 mg PO QAM 30 Days #60 tab 07/19/19 08/31/19 Rx lisinopril 2.5 mg PO QAM 30 Days #30 tab 07/19/19 08/31/19 Rx metoprolol succinate [Toprol XL] 12.5 mg PO DAILY 30 Days #15 tab 07/19/19 08/31/19 Rx ticagrelor [Brilinta] 90 mg PO BID 30 Days #60 tab 07/19/19 08/31/19 Rx Past Med/Surg History Medical History HTN (hypertension) (Chronic) Kidney disease (Chronic) Surgical History S/P AAA repair (Resolved) Family History Other Hypertension Social History Preferred Language: Burundian Communication Ability: Effective Ecosystem Ecology Professor Required: No Beliefs That Will Affect Care: None marital status: Current Living Situation: Spouse Other Information That Helps Us Care for You: No Feels Safe at Home: Yes Safety Concerns: Feels Safe At This Time Smoking Status: Current every day smoker Tobacco Type: cigarettes ; Cigarettes Per Day: 20 ; Do You Dip or Chew Tobacco: No ; Second Hand Exposure: No ; Tobacco Cessation Education Requested by Patient: No Hx Alcohol Use: Yes Alcohol type: wine Hx Substance Use: No Review of Systems no fever, no chills and no weight loss as per Subjective / HPI as per Subjective / HPI no dyspnea and no dyspnea on exertion no chest pain and no palpitations as per Subjective / HPI no joint pain and no swelling no rash and no lesions no numbness and no paresthesia no depression and no anxiety no fatigue no easy bleeding and no easy bruising Physical Exam Constitutional: WD/WN, vitals as above Eyes: EOM intact bilaterally Neck: normal visual inspection Respiratory: normal respiratory effort, lungs clear to auscultation Cardiovascular: RRR, no murmur, no edema Gastrointestinal (Abdomen): Inspection/Auscultation: abdomen normal to inspection; abdomen not distended Percussion/Palpation: abdomen soft; abdomen nontender and no hepatosplenomegaly Musculoskeletal: Extremities: no cyanosis Gait: normal gait Skin: no rashes, warm and dry Neurologic: moves all extremities Psychiatric: A+Ox3, euthymic affect Results & Data Vital Signs (Past 12 Hours) Vital Signs Temp Pulse Pulse Resp BP BP Pulse Ox 08/31/19 15:30 37.2 C 64 16 126/73 100 08/31/19 15:15 37.1 C 70 18 131/73 100 08/31/19 15:11 37 C 59 L 22 110/69 100 08/31/19 15:01 59 L 22 110/69 100 08/31/19 15:00 57 L 18 100 08/31/19 14:46 59 L 19 100 08/31/19 14:45 61 26 H 100 08/31/19 14:31 59 L 19 100 08/31/19 14:30 60 20 114/66 100 08/31/19 14:16 66 18 100 08/31/19 14:15 60 18 97/73 L 100 08/31/19 14:01 58 L 19 100 08/31/19 14:00 60 19 100/60 100 08/31/19 13:46 59 L 18 107/67 100 08/31/19 13:45 59 L 19 100 08/31/19 13:42 37 C 58 L 19 106/57 L 100 08/31/19 13:35 59 L 15 100 08/31/19 13:34 61 19 109/76 100 08/31/19 13:33 37.2 C 60 18 109/76 100 08/31/19 13:31 64 19 100 08/31/19 13:30 62 19 113/70 100 08/31/19 13:27 37.2 C 61 18 107/61 100 08/31/19 13:22 37.2 C 08/31/19 13:16 61 21 100 08/31/19 13:15 64 20 107/61 100 08/31/19 13:14 61 20 107/61 100 08/31/19 13:01 63 20 111/65 100 08/31/19 13:00 80 17 100 08/31/19 12:45 68 22 100 08/31/19 12:43 79 22 111/70 97 08/31/19 12:31 62 16 100 08/31/19 12:30 61 19 100/70 100 08/31/19 12:15 60 16 100 08/31/19 12:01 64 19 94/52 L 100 08/31/19 12:00 67 16 100 08/31/19 11:45 62 17 100 08/31/19 11:35 64 19 114/75 100 08/31/19 11:31 66 17 100 08/31/19 11:30 65 19 114/75 100 08/31/19 11:15 66 19 100 12/30/19 11:10 100 08/31/19 11:08 70 19 119/76 100 08/31/19 11:07 63 17 100 08/31/19 11:06 66 19 119/76 100 08/31/19 11:01 66 19 88/71 L 08/31/19 11:00 79 24 08/31/19 10:54 67 72 17 103/67 111/99 100 08/31/19 10:50 81 08/31/19 10:30 64 20 100 08/31/19 10:29 65 18 100 08/31/19 10:15 75 17 96 08/31/19 10:11 73 17 100 08/31/19 10:09 74 18 124/75 99 08/31/19 10:04 36.6 C 72 20 124/75 100 Code Status & VTE Plan VTE Prophylaxis Plan VTE Prophylaxis will be ordered: Yes (1) Anemia Anemia type: unspecified type Qualified Code(s): D64.9 - Anemia, unspecified
[2019-08-31 16:34] LABS: Basophils # (auto) 0.03 K/uL (0-0.2); Basophils % (auto) 0.3 %; Eosinophils # (auto) 0.03 K/uL (0-0.5); Eosinophils % (auto) 0.3 %; Hematocrit (blood only) 29.6 % (37-47); Hemoglobin 9.7 g/dL (12.0-16.0); Immature Granulocytes # (auto) 0.02 K/uL (0.00-0.02); Immature Granulocytes % (auto) 0.2 %; Lymphocytes # (auto) 1.79 K/uL (1.2-3.4); Lymphocytes % (auto) 20.4 %; Mean Corpuscular Hemoglobin 31.7 pg (25-34); Mean Corpuscular Hgb Conc 32.8 g/dL (32-36); Mean Corpuscular Volume 96.7 fL (80-100); Mean Platelet Volume 9.4 fL (7.4-10.4); Monocytes % (auto) 5.7 %; Neutrophils # (auto) 6.41 K/uL (1.4-6.5); Neutrophils % (auto) 73.1 %; Platelet Count 375 K/uL (130-400); Red Blood Count 3.06 M/uL (4.2-5.4); White Blood Count 8.78 K/uL (4.8-10.8)
--- NOTE | 2019-08-31 17:46 | Emergency Department Note ---
Entered by Esthela Ojeda acting as a scribe for Tim Carty DO History of Present Illness General Chief complaint: Weakness Time Seen by Provider: 08/31/19 10:04 Source: patient History of Present Illness Onset (ago): week(s) 1 Location: head Pain Consistency: + other (persistent) Quality: + other (generalized weakness) Associated symptoms: + denies other symptoms (headache, nausea, chest pain, difficulty breathing, black or bloody stools) and + other (fatigued, difficulty moving around, swelling in legs, shortness of breath with exertion) The patient is a 78 year old female that is presenting to the Emergency Room with complaints of persistent generalized weakness that started 1 week ago. The patient reports that the weakness started in her legs and then become more generalized today. She states that she has difficulty getting around secondary to the weakness. She denies any headache, nausea, chest pain, difficulty breathing, black or bloody stools. She notes that she had an TX and two stents placed in 07/2019. She states that she was placed on a number of new medications at that time. She reports that she wears compression socks secondary to mild swelling in her legs. The patient states that she feels a little short of breath with quick movements but denies any shortness of breath with lying flat. She notes that she feels fatigued. She states that she is followed by Dr. Baker, Cardiology, and that she has a follow up appointment next week. She notes that she is followed by Dr. Fisher, PCP, who she saw 1 week ago. The patient states that she lives at home. Home Medications Home Medications Medication Instructions Recorded Confirmed Type aspirin 81 mg tablet,delayed 81 mg PO DAILY 05/26/19 08/31/19 History release cholecalciferol (vitamin D3) 2,000 4,000 units PO DAILY tab 05/26/19 08/31/19 History unit tablet levothyroxine 25 mcg PO Q OTHER DAY 07/17/19 08/31/19 History levothyroxine 50 mcg PO Q OTHER DAY 07/17/19 08/31/19 History atorvastatin 80 mg PO QAM 30 Days #60 tab 07/19/19 08/31/19 Rx lisinopril 2.5 mg PO QAM 30 Days #30 tab 07/19/19 08/31/19 Rx metoprolol succinate [Toprol XL] 12.5 mg PO DAILY 30 Days #15 tab 07/19/19 08/31/19 Rx ticagrelor [Brilinta] 90 mg PO BID 30 Days #60 tab 07/19/19 08/31/19 Rx Allergies Allergy/AdvReac Type Severity Reaction Status Date / Time No Known Allergies Allergy Unverified 08/31/19 11:28 Past Med/Surg History Medical History HTN (hypertension) (Chronic) Kidney disease (Chronic) Surgical History S/P AAA repair (Resolved) Family History Other Hypertension Social History Preferred Language: Moldovan Communication Ability: Effective 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 and A total of 10 systems reviewed and were otherwise negative Physical Exam Vital Signs Vital Signs - 24 hr 08/31/19 10:04 08/31/19 10:09 08/31/19 10:11 Temperature 36.6 C Temperature Source Oral Pulse Rate 72 74 73 Pulse Rate [Left Finger] Pulse Rate from SpO2 Sensor 75 75 Respiratory Rate 20 18 17 Respiratory Effort / Characteristics Non-Labored Respiratory Depth Normal Respiratory Pattern Blood Pressure 124/75 124/75 Blood Pressure [Right Arm] Blood Pressure Mean 91 90 Blood Pressure Mean [Right Arm] Blood Pressure Position [Right Arm] Pulse Oximetry 100 99 100 Oxygen Delivery Method Room Air Sepsis Recent Fever Within 48 Hours No Sepsis Action Taken by Nursing No Action Required 08/31/19 10:15 08/31/19 10:28 08/31/19 10:29 Temperature Temperature Source Pulse Rate 75 Pulse Rate [Left Finger] 65 Pulse Rate from SpO2 Sensor 65 Respiratory Rate 17 18 Respiratory Effort / Characteristics Non-Labored Non-Labored Spontaneous Respiratory Depth Respiratory Pattern Blood Pressure Blood Pressure [Right Arm] Blood Pressure Mean Blood Pressure Mean [Right Arm] Blood Pressure Position [Right Arm] Pulse Oximetry 96 100 Oxygen Delivery Method Room Air Room Air Sepsis Recent Fever Within 48 Hours Sepsis Action Taken by Nursing 08/31/19 10:30 08/31/19 10:50 08/31/19 10:54 Temperature Temperature Source Pulse Rate 64 81 67 Pulse Rate [Left Finger] 72 Pulse Rate from SpO2 Sensor 64 Respiratory Rate 20 17 Respiratory Effort / Characteristics Non-Labored Respiratory Depth Normal Respiratory Pattern Blood Pressure 103/67 Blood Pressure [Right Arm] 111/99 Blood Pressure Mean 75 Blood Pressure Mean [Right Arm] 103 Blood Pressure Position [Right Arm] Pulse Oximetry 100 100 Oxygen Delivery Method Room Air Room Air Sepsis Recent Fever Within 48 Hours Sepsis Action Taken by Nursing 08/31/19 11:00 08/31/19 11:01 08/31/19 11:06 Temperature Temperature Source Pulse Rate 79 66 66 Pulse Rate [Left Finger] Pulse Rate from SpO2 Sensor 65 Respiratory Rate 24 19 19 Respiratory Effort / Characteristics Respiratory Depth Respiratory Pattern Blood Pressure 88/71 L 119/76 Blood Pressure [Right Arm] Blood Pressure Mean 73 89 Blood Pressure Mean [Right Arm] Blood Pressure Position [Right Arm] Pulse Oximetry 100 Oxygen Delivery Method Sepsis Recent Fever Within 48 Hours Sepsis Action Taken by Nursing 08/31/19 11:07 08/31/19 11:08 08/31/19 11:10 Temperature Temperature Source Pulse Rate 63 Pulse Rate [Left Finger] 70 Pulse Rate from SpO2 Sensor 63 Respiratory Rate 17 19 Respiratory Effort / Characteristics Non-Labored Spontaneous Respiratory Depth Normal Respiratory Pattern Regular Blood Pressure Blood Pressure [Right Arm] 119/76 Blood Pressure Mean Blood Pressure Mean [Right Arm] 90 Blood Pressure Position [Right Arm] Lying Pulse Oximetry 100 100 100 Oxygen Delivery Method Room Air Room Air Sepsis Recent Fever Within 48 Hours Sepsis Action Taken by Nursing 08/31/19 11:15 08/31/19 11:30 08/31/19 11:31 Temperature Temperature Source Pulse Rate 66 65 66 Pulse Rate [Left Finger] Pulse Rate from SpO2 Sensor 67 65 68 Respiratory Rate 19 19 17 Respiratory Effort / Characteristics Respiratory Depth Respiratory Pattern Blood Pressure 114/75 Blood Pressure [Right Arm] Blood Pressure Mean 81 Blood Pressure Mean [Right Arm] Blood Pressure Position [Right Arm] Pulse Oximetry 100 100 100 Oxygen Delivery Method Sepsis Recent Fever Within 48 Hours Sepsis Action Taken by Nursing 08/31/19 11:35 08/31/19 11:45 08/31/19 12:00 Temperature Temperature Source Pulse Rate 62 67 Pulse Rate [Left Finger] 64 Pulse Rate from SpO2 Sensor 59 L 61 Respiratory Rate 19 17 16 Respiratory Effort / Characteristics Non-Labored Spontaneous Respiratory Depth Normal Respiratory Pattern Regular Blood Pressure Blood Pressure [Right Arm] 114/75 Blood Pressure Mean Blood Pressure Mean [Right Arm] 88 Blood Pressure Position [Right Arm] Lying Pulse Oximetry 100 100 100 Oxygen Delivery Method Room Air Sepsis Recent Fever Within 48 Hours Sepsis Action Taken by Nursing 08/31/19 12:01 08/31/19 12:15 08/31/19 12:30 Temperature Temperature Source Pulse Rate 64 60 61 Pulse Rate [Left Finger] Pulse Rate from SpO2 Sensor 64 60 61 Respiratory Rate 19 16 19 Respiratory Effort / Characteristics Respiratory Depth Respiratory Pattern Blood Pressure 94/52 L 100/70 Blood Pressure [Right Arm] Blood Pressure Mean 62 73 Blood Pressure Mean [Right Arm] Blood Pressure Position [Right Arm] Pulse Oximetry 100 100 100 Oxygen Delivery Method Sepsis Recent Fever Within 48 Hours Sepsis Action Taken by Nursing 08/31/19 12:31 08/31/19 12:43 08/31/19 12:45 Temperature Temperature Source Pulse Rate 62 79 68 Pulse Rate [Left Finger] Pulse Rate from SpO2 Sensor 62 80 67 Respiratory Rate 16 22 22 Respiratory Effort / Characteristics Respiratory Depth Respiratory Pattern Blood Pressure 111/70 Blood Pressure [Right Arm] Blood Pressure Mean 96 Blood Pressure Mean [Right Arm] Blood Pressure Position [Right Arm] Pulse Oximetry 100 97 100 Oxygen Delivery Method Sepsis Recent Fever Within 48 Hours Sepsis Action Taken by Nursing GENERAL: Patient is awake, alert, and in no acute distress.Patient is resting comfortably and showing no signs of anxiety EYES: The conjunctivae are clear. The pupils are round and reactive. EARS, NOSE, MOUTH AND THROAT: The nose is without any evidence of any deformity. Mucous membranes are moist.Tongue is midline NECK: The neck is nontender and supple. RESPIRATORY: Diminished breath sounds throughout with scattered rhonchi. No conversational dyspnea was noted. CARDIOVASCULAR: Bradycardic rate noted to auscultation. Ectopy noted to auscultation. GASTROINTESTINAL: The abdomen is soft. Bowel sounds are present in all quadrants. Abdomen is nontender. MUSCULOSKELETAL/EXTREMITIES: There is no evidence of gross deformity. Full range of motion is noted in the hips and shoulders. SKIN: There is no obvious evidence of any rash. There are no petechiae, pallor or cyanosis noted. NEUROLOGIC: Patient is awake alert and oriented x3. Course Course 1009:The patient was evaluated in room A09B. A complete history and physical examination was performed. 1122: I discussed the patients case with Dr. Mcdonald, [facility], who will evaluate the patient for further management and care. 1130:Upon reevaluation, the patient is resting comfortably. I discussed laboratory and radiographic results with the patient. She verbalized agreement of the treatment plan. The patient will be evaluated for further management and care. Administered Medications Discontinued Medications Albuterol (Duoneb) 3 ml NEB NOW STA Stop: 08/31/19 10:20 Last Admin: 08/31/19 10:29 Dose: 3 ml Documented by: [id number] Famotidine (Pepcid 20mg Iv Push) 20 mg in 5 mls @ 2.5 mls/min IV NOW STA Stop: 08/31/19 11:16 Last Admin: 08/31/19 11:23 Dose: 2.5 mls/min Documented by: [id number] Magnesium Sulfate/Dextrose (Magnesium Sulfate / D5w) 1 gm in 100 mls @ 100 m ls/hr IV ONE ONE Stop: 08/31/19 12:14 Last Infusion: 08/31/19 12:23 Dose: 0 mls/hr Documented by: [id number] Admin: 08/31/19 11:23 Dose: 100 mls/hr Documented by: [id number] Pantoprazole Sodium (Protonix) 40 mg PO NOW STA Stop: 08/31/19 11:16 Last Admin: 08/31/19 11:23 Dose: 40 mg Documented by: [id number] Critical Care Time Critical Care Time: Yes Total Critical Care Time: 60 I have personally spent 60 minutes of critical care time in the direct management of this patient. This includes bedside care, interpretation of diagnostic studies, and testing, discussion with consultants, patient, and family members, and other required patient management activities. This 60 minutes is in excess of all separately billable procedures. Medical Decision Making Differential Diagnosis Differential Diagnosis includes but is not limited to dehydration, stroke, anemia, hypoglycemia, hyponatremia, hypernatremia, urinary tract infection, pneumonia, bronchitis, sepsis, gastroenteritis, additional abdominal pathology, metabolic abnormalities and infections. Medical Records Attestation: I reviewed the patient's medical records. Home Medications Current Medication List: was personally reviewed by me Laboratory Data Attestation: I reviewed the patient's lab results. Result diagrams: 08/31/19 16:22 08/31/19 10:15 Lab Results 08/31/19 08/31/19 08/31/19 Range/Units 10:15 10:15 10:15 WBC 8.54 (4.8-10.8) K/uL RBC 2.66 L (4.2-5.4) M/uL Hgb 8.4 L (12.0-16.0) g/dL Hct 26.2 L (37-47) % MCV 98.5 (80-100) fL MCH 31.6 (25-34) pg MCHC 32.1 (32-36) g/dL RDW Std Deviation 52.6 H (36.4-46.3) fL RDW Coeff of Vanessa 14.6 H (11.5-14.5) % Plt Count 380 (130-400) K/uL MPV 9.4 (7.4-10.4) fL Immature Gran % (Auto) 0.2 % Neut % (Auto) 77.5 % Lymph % (Auto) 15.0 % [place] % (Auto) 6.7 % Eos % (Auto) 0.4 % Baso % (Auto) 0.2 % Immature Gran # (Auto) 0.02 (0.00-0.02) K/uL Neut # (Auto) 6.62 H (1.4-6.5) K/uL Lymph # (Auto) 1.28 (1.2-3.4) K/uL [place] # (Auto) 0.57 (0.11-0.59) K/uL Eos # (Auto) 0.03 (0-0.5) K/uL Baso # (Auto) 0.02 (0-0.2) K/uL PT 10.0 (9.0-12.0) Seconds INR 1.0 (0.9-1.1) APTT 25.4 (21.0-31.0) Seconds PTT Ratio 0.9 Sodium 137 (136-145) mmol/L Potassium 4.0 (3.5-5.1) mmol/L Chloride 107 (98-107) mmol/L Carbon Dioxide 21 (21-32) mmol/L Anion Gap 9.0 (3-11) BUN 14 (7-18) mg/dl Creatinine 1.26 H (0.6-1.2) mg/dl Est Cr Clr Drug Dosing 36.9 ml/min Est GFR ( Amer) 47.9 Est GFR (Non-Af Amer) 41.4 BUN/Creatinine Ratio 10.9 (10-20) Glucose 173 H (70-99) mg/dl Calcium 8.9 (8.5-10.1) mg/dl Magnesium 1.7 L (1.8-2.4) mg/dl Total Bilirubin 0.4 (0.2-1) mg/dl AST 21 (15-37) U/L ALT 23 (12-78) U/L Alkaline Phosphatase 172 H (45-117) U/L Troponin I < 0.015 (0-0.045) ng/ml Total Protein 7.2 (6.4-8.2) gm/dl Albumin 3.2 L (3.4-5.0) gm/dl Globulin 4.0 (2.5-4.0) gm/dl Albumin/Globulin Ratio 0.8 L (0.9-2) TSH 3.180 (0.300-4.500) uIu/ml Urine Color Urine Appearance (Clear) Urine pH (4.5-7.5) Ur Specific [place] (1.000-1.030) Urine Protein (Negative) Urine Glucose (UA) (Negative) Urine Ketones (Negative) Urine Blood (Negative) Urine Nitrite (Negative) Urine Bilirubin (Negative) Urine Urobilinogen (Negative) Ur Leukocyte Esterase (Negative) Urine WBC (Auto) (0-5) /hpf Urine RBC (Auto) (0-4) /hpf U Hyaline Cast (Auto) (0-5) /lpf U Epithel Cells (Auto) (0-5) /lpf Urine Bacteria (Auto) (Negative) POC Stool Occult Blood (Negative) Blood Type Antibody Screen Crossmatch 08/31/19 08/31/19 08/31/19 Range/Units 10:50 11:14 11:15 WBC (4.8-10.8) K/uL RBC (4.2-5.4) M/uL Hgb (12.0-16.0) g/dL Hct (37-47) % MCV (80-100) fL MCH (25-34) pg MCHC (32-36) g/dL RDW Std Deviation (36.4-46.3) fL RDW Coeff of Vanessa (11.5-14.5) % Plt Count (130-400) K/uL MPV (7.4-10.4) fL Immature Gran % (Auto) % Neut % (Auto) % Lymph % (Auto) % [place] % (Auto) % Eos % (Auto) % Baso % (Auto) % Immature Gran # (Auto) (0.00-0.02) K/uL Neut # (Auto) (1.4-6.5) K/uL Lymph # (Auto) (1.2-3.4) K/uL [place] # (Auto) (0.11-0.59) K/uL Eos # (Auto) (0-0.5) K/uL Baso # (Auto) (0-0.2) K/uL PT (9.0-12.0) Seconds INR (0.9-1.1) APTT (21.0-31.0) Seconds PTT Ratio Sodium (136-145) mmol/L Potassium (3.5-5.1) mmol/L Chloride (98-107) mmol/L Carbon Dioxide (21-32) mmol/L Anion Gap (3-11) BUN (7-18) mg/dl Creatinine (0.6-1.2) mg/dl Est Cr Clr Drug Dosing ml/min Est GFR ( Amer) Est GFR (Non-Af Amer) BUN/Creatinine Ratio (10-20) Glucose (70-99) mg/dl Calcium (8.5-10.1) mg/dl Magnesium (1.8-2.4) mg/dl Total Bilirubin (0.2-1) mg/dl AST (15-37) U/L ALT (12-78) U/L Alkaline Phosphatase (45-117) U/L Troponin I (0-0.045) ng/ml Total Protein (6.4-8.2) gm/dl Albumin (3.4-5.0) gm/dl Globulin (2.5-4.0) gm/dl Albumin/Globulin Ratio (0.9-2) TSH (0.300-4.500) uIu/ml Urine Color Yellow Urine Appearance Clear (Clear) Urine pH 7.0 (4.5-7.5) Ur Specific [place] 1.004 (1.000-1.030) Urine Protein Trace H (Negative) Urine Glucose (UA) Negative (Negative) Urine Ketones Negative (Negative) Urine Blood Negative (Negative) Urine Nitrite Negative (Negative) Urine Bilirubin Negative (Negative) Urine Urobilinogen Negative (Negative) Ur Leukocyte Esterase 1+ H (Negative) Urine WBC (Auto) 1-5 (0-5) /hpf Urine RBC (Auto) 0-4 (0-4) /hpf U Hyaline Cast (Auto) 0 (0-5) /lpf U Epithel Cells (Auto) 5-10 H (0-5) /lpf Urine Bacteria (Auto) Negative (Negative) POC Stool Occult Blood Positive A (Negative) Blood Type AB Positive Antibody Screen NEGATIVE Crossmatch See Detail Imaging Data Radiologist's Impression: Radiology results as stated below per my review and the radiologist's interpretation: XR chest 1V portable CLINICAL HISTORY: weakness dyspnea COMPARISON STUDY: 07/17/2019 FINDINGS: Chronic parenchymal and fibrotic changes left lung base. Slight parenchymal prominence right base considered chronic and unchanged. Min number lungs are clear. No well-defined consolidative infiltrate. IMPRESSION: Chronic bibasilar fibrotic change. No acute process. ACT 112: Negative or not required by law. The above report was generated using voice recognition software. It may contain grammatical, syntax or spelling errors. Electronically signed by: Ketan Colunga M.D. 08/31/2019 10:[address] NONCONTRAST CT DOSE: 537.48 mGy.cm HISTORY: weakness TECHNIQUE: Multiaxial CT images of the head were performed without the use of intravenous contrast. Automated exposure control was utilized for this study. A dose lowering technique was utilized adhering to the principles of ALARA. Comparison: None. Findings: The paranasal sinuses and mastoid air cells are clear. The calvarium and skull base are intact. There is no mass, hematoma, midline shift, acute infarct. White matter hypodensity is nonspecific but suggestive of microvascular ischemic change. The ventricles and sulci demonstrate mild age-related involutional changes. Impression: No acute intracranial abnormality. Atrophy and microvascular ischemic changes. ACT 112: Negative or not required by law. Electronically signed by: Jarocho Vazquez M.D. 08/31/2019 10:55 AM ECG Data Attestation: I personally reviewed and interpreted this ECG as follows: Indication: + weakness Rate (beats per minute): 72 Rhythm: + sinus rhythm ECG Intervals/blocks: + Left bundle branch block ECG ST segments: + T-wave inversions (Inferior) ECG Findings: + PVCs Comparison ECG Date: from (07/19/19) Change: no significant change Blood Pressure Blood Pressure Findings: Normal blood pressure MDM Narrative The patient is a 78-year-old female who presented to the emergency department for an evaluation of generalized weakness. The patient had stent placement in July of this year. She was started on medications such as antiplatelet medication. She denied any black stool but she was heme positive from below. She was found to have significant anemia. I discussed the patient's laboratory and radiographic studies with her. She did have orthostatic symptoms upon standing. She was found to have significant anemia and a type and cross. Blood transfusion was ordered. I did consent the patient for blood transfusion. I discussed the patient's laboratory and radiographic studies with her. I do feel the patient's underlying weakness is secondary to significant anemia from GI bleeding. I discussed the patient's condition with the on-call [facility] hospitalist group. They have agreed to evaluate the patient in the emergency department for further management disposition. Impression & Plan Upper GI bleed, Anemia, Weakness Discharge Plan Visit Data *Final* Discharge Date/Time: 08/31/19 15:11 Chief Complaint: Weakness ED Provider: Tim Carty Discharge Problem: Upper GI bleed, Anemia, Weakness Patient Disposition: Admitted As Inpatient Discharge Instructions Interventions: ED Discharge Assessment Last Done: 08/31/19 15:11 Discharge Problem: Anemia Qualifiers: Anemia type: unspecified type Qualified Code(s): D64.9 - Anemia, unspecified The scribe's documentation has been prepared under my direction and personally reviewed by me in its entirety. I confirm that the note above accurately reflects all work, treatment, procedures, and medical decision making performed by me.
[2019-08-31] MEDS: TICAGRELOR 90 MG TAB PO SCH (20:47)
[2019-08-31] MEDS: PANTOprazole 40 MG in SYRINGE 0 ML IV SCH (22:05)
[2019-09-01 04:14] LABS: Basophils # (auto) 0.02 K/uL (0-0.2); Basophils % (auto) 0.3 %; Eosinophils # (auto) 0.07 K/uL (0-0.5); Eosinophils % (auto) 1.1 %; Hematocrit (blood only) 29.7 % (37-47); Hemoglobin 10.1 g/dL (12.0-16.0); Immature Granulocytes # (auto) 0.01 K/uL (0.00-0.02); Immature Granulocytes % (auto) 0.2 %; Lymphocytes # (auto) 1.45 K/uL (1.2-3.4); Lymphocytes % (auto) 23.2 %; Mean Corpuscular Hemoglobin 32.2 pg (25-34); Mean Corpuscular Volume 94.6 fL (80-100); Mean Platelet Volume 9.6 fL (7.4-10.4); Monocytes # (auto) 0.47 K/uL (0.11-0.59); Monocytes % (auto) 7.5 %; Neutrophils # (auto) 4.23 K/uL (1.4-6.5); Neutrophils % (auto) 67.7 %; Platelet Count 288 K/uL (130-400); RDW Coefficient of Variation 15.7 % (11.5-14.5); Red Blood Count 3.14 M/uL (4.2-5.4); White Blood Count 6.25 K/uL (4.8-10.8)
[2019-09-01 04:31] LABS: BUN Creatinine Ratio 9.2 (10-20); Calcium 8.1 mg/dl (8.5-10.1); Creatinine Clr Calc Pharmacy 41.2 ml/min; Est GFR (African American) 54.7; Est GFR (Non-African American) 47.2; Magnesium 1.9 mg/dl (1.8-2.4); Potassium 3.9 mmol/L (3.5-5.1)
[2019-09-01] MEDS: PANTOprazole 40 MG in SYRINGE 0 ML IV SCH ×2 (08:10→20:34)
[2019-09-01] MEDS ORDERED: ASPIRIN 81 MG ECTAB PO SCH (09:00)
--- NOTE | 2019-09-01 09:02 | History & Physical Bridge Note ---
Date of Service September 01, 2019 History & Physical Bridge Note I have examined the patient, reviewed the History & Physical and in the interval since the performance of the History & Physical I have noted the following changes of clinical significance: no changes noted. Patient has been kept NPO. She denies any melena or hematemesis overnight. She is agreeable to proceeding with testing today. H/H is 10.1/29.7. She continues on IV PPI gtt. Proceed with EGD today. Supervising Physician Co-Signing Physician Notes I personally evaluated the patient and agree with the findings as documented by MAIA Lara Proceed with EGD. risks/benefits and procedure discussed with patient, who agrees to proceed
--- NOTE | 2019-09-01 10:41 | Cardiology Consultation ---
Date of Consultation September 01, 2019 Assessment & Plan (1) Anemia: Patient received 2 units of blood in transfusion which brought her hemoglobin up from 8.4-10.1. She is stable with no gross signs of bleeding. GI is following and we will continue with IV PPI. Patient is scheduled for EGD. Monitor daily CBC (2) S/P coronary artery stent placement: Unfortunately this patient recently suffered an ST elevation MO involving the inferoposterior verduzco approximately 6 weeks ago. She received one NARCISO to the distal LCX and one NARCISO to the mid LAD. Therefore we will need to continue her dual antiplatelet therapy as she is considered to be at high risk from the standpoint of thrombotic risk and stent thrombosis. We will continue with current guideline directed medical therapy including dual antiplatelet therapy and will await the results of her tests. (3) CAD (coronary artery disease): As above I am recommending we continue with dual antiplatelet therapy. Recommend daily EKG and telemetry monitoring. (4) Chronic kidney disease, stage III (moderate): Continue monitor daily BMP and will defer to medicine (5) STEMI (ST elevation myocardial infarction): Patient suffered an ST elevation MO July 2019 underwent placement of 2 drug-eluting stents on July 172018 as noted above. As above we will continue to try to titrate her guideline directed medical therapy. (6) HTN (hypertension): We will continue to monitor her blood pressure noting her marginal blood pressure this a.m. We will reinstitute pharmacotherapy once testing has been completed. We will reassess her blood pressure after her procedure. History of Present Illness Reason for Consultation: The patient is a 78-year-old female with a past medical history significant for coronary artery disease, history of ST elevation MO in July 2019 status post drug-eluting stent x2 hyperlipidemia chronic kidney disease and hypertension who was in her usual state of health but had noted increasing weakness and fatigue. This subsequently prompted her to go to the emergency department where they did routine blood work and found that the patient had a hemoglobin 8.4 which was down from 14 approximately 6 weeks ago. Patient denied any abdominal pain hematemesis hematochezia or melena. Her only complaint was that she was feeling fatigued and weak. She denied any chest pain shortness of breath from her baseline or palpitations or any other complaints. Attending Physician: Mauricio Horner Allergies Allergy/AdvReac Type Severity Reaction Status Date / Time No Known Allergies Allergy Unverified 08/31/19 11:28 Home Medications Home Medications Medication Instructions Recorded Confirmed Type aspirin 81 mg tablet,delayed 81 mg PO DAILY 05/26/19 08/31/19 History release cholecalciferol (vitamin D3) 2,000 4,000 units PO DAILY tab 05/26/19 08/31/19 History unit tablet levothyroxine 25 mcg PO Q OTHER DAY 07/17/19 08/31/19 History levothyroxine 50 mcg PO Q OTHER DAY 07/17/19 08/31/19 History atorvastatin 80 mg PO QAM 30 Days #60 tab 07/19/19 08/31/19 Rx lisinopril 2.5 mg PO QAM 30 Days #30 tab 07/19/19 08/31/19 Rx metoprolol succinate [Toprol XL] 12.5 mg PO DAILY 30 Days #15 tab 07/19/19 08/31/19 Rx ticagrelor [Brilinta] 90 mg PO BID 30 Days #60 tab 07/19/19 08/31/19 Rx Patient History Medical History HTN (hypertension) (Chronic) Surgical History S/P AAA repair (Resolved) Family History Other Hypertension Social History Preferred Language: Barb[place] Communication Ability: Effective Child Psychiatrist Required: No Beliefs That Will Affect Care: None marital status: Current Living Situation: Spouse Other Information That Helps Us Care for You: No Feels Safe at Home: Yes Safety Concerns: Feels Safe At This Time Smoking Status: Current every day smoker Tobacco Type: cigarettes ; Cigarettes Per Day: 20 ; Do You Dip or Chew Tobacco: No ; Second Hand Exposure: No ; Tobacco Cessation Education Requested by Patient: No Hx Alcohol Use: Yes Alcohol type: wine Hx Substance Use: No Review of Systems Review of Systems: All systems reviewed & are unremarkable except as noted in HPI & below Physical Exam Physical Exam: General appearance, awake alert and oriented no apparent distress stable HEENT: Normocephalic atraumatic Neck: Normocephalic atraumatic sclerae nonicteric mucous membranes dry no bruits or adenopathy Cardiovascular: Regular rate and rhythm with a 1/6 systolic murmur best appreciated right upper sternal border normal S1-S2 nondisplaced PMI Lungs: Clear to auscultation bilaterally Abdomen: Nondistended nontender positive bowel sounds Extremities: No significant edema no clubbing cyanosis Neurologic: Grossly nonfocal Results & Data Vital Signs (Past 12 Hours) Vital Signs Temp Pulse Resp BP Pulse Ox 09/01/19 07:37 36.8 C 61 18 101/63 96 08/31/19 23:46 36.3 C L 64 18 152/62 H 98 (1) CAD (coronary artery disease) Associated angina: without angina Coronary Disease-Associated Artery/Lesion type: [place] artery [place] vs. transplanted heart: [place] heart Qualified Code(s): I25.10 - Atherosclerotic heart disease of [place] coronary artery without angina pectoris (2) Anemia Anemia type: unspecified type Qualified Code(s): D64.9 - Anemia, unspecified (3) HTN (hypertension) Hypertension type: essential hypertension Qualified Code(s): I10 - Essential (primary) hypertension
--- NOTE | 2019-09-01 11:37 | Communication Note ---
Date of Service: September 01, 2019 GI brief note: Given that patient just had NARCISO placed and is going to be on DAPT for 9-12 months, need to rule out any significant ulcers or sources of GI bleeding to explain her anemia. Will proceed with EGD to further evaluate.
[2019-09-01] MEDS ORDERED: LIDOCAINE HCL 2% 2 ML VIAL/AMP(20MG/ML) INFIL ONE (11:58)
[2019-09-01] MEDS ORDERED: PROPOFOL IV EMULSION 10 MG/ML 20 ML VIAL IV ONE (11:58)
[2019-09-01] MEDS ORDERED: ATROPINE SULFATE 0.1 MG/ML 10ML SYR IV PRN (12:23)
[2019-09-01] MEDS ORDERED: ePHEDrine sulfate 50 MG/ML AMP IV PRN (12:23)
[2019-09-01] MEDS ORDERED: ONDANSETRON INJ 2 MG/ML 2 ML VIAL IV PRN (12:23)
[2019-09-01] MEDS ORDERED: fentaNYL citrate 100 MCG/2 ML VIAL IV PRN (12:23)
--- NOTE | 2019-09-01 12:23 | Anesthesiology Consultation ---
Date of Service September 01, 2019 Assessment & Plan ASA ASA3E Proposed Anesthesia Anesthesia Type: MAC Risk / Benefits Reviewed With: PT / POA / Parent / Guardian, Accepts Plan and Informed Consent Obtained Additional Comments: need for continued antiplatelet therapy outweighs risk of procedure within a year of gary History Surgery Operation Date: 09/01/19 15:35 Proposed Procedures p Esophagogastroduodenoscopy Dr. Marc Tran MD Height/Weight Height: 5 ft 4 in Weight: 71.9 kg Allergies Allergy/AdvReac Type Severity Reaction Status Date / Time No Known Allergies Allergy Verified 09/01/19 11:56 Medications Home Medications Medication Instructions Recorded Confirmed Last Taken aspirin 81 mg tablet,delayed 81 mg PO DAILY 05/26/19 08/31/19 Unknown release cholecalciferol (vitamin D3) 2,000 4,000 units PO DAILY tab 05/26/19 08/31/19 Unknown unit tablet levothyroxine 25 mcg PO Q OTHER DAY 07/17/19 08/31/19 Unknown levothyroxine 50 mcg PO Q OTHER DAY 07/17/19 08/31/19 Unknown atorvastatin 80 mg PO QAM 30 Days #60 tab 07/19/19 08/31/19 Unknown lisinopril 2.5 mg PO QAM 30 Days #30 tab 07/19/19 08/31/19 Unknown metoprolol succinate [Toprol XL] 12.5 mg PO DAILY 30 Days #15 tab 07/19/19 08/31/19 Unknown ticagrelor [Brilinta] 90 mg PO BID 30 Days #60 tab 07/19/19 08/31/19 Unknown Active Medications Generic Name Dose Route Start Last Admin Trade Name Freq PRN Reason Stop Dose Admin Pantoprazole Sodium 40 mg/ 10 mls @ 5 mls/min 08/31/19 22:00 09/01/19 08:10 Syringe IV 09/30/19 21:59 5 mls/min BID@0900,2100 BRIJESH Administration Miscellaneous 1 ea 09/01/19 08:59 09/01/19 08:11 Remove Nicoderm Patch N/A 10/01/19 08:58 1 ea DAILY@0859 BRIJESH Administration Ticagrelor 90 mg 08/31/19 21:00 08/31/19 20:47 Brilinta PO 09/30/19 20:59 Not Given BID BRIJESH NPO Date Last Intake of Fluids: 08/31/19 Time Last Intake of Fluids: 23:00 Date Last Intake of Solids: 08/31/19 Time Last Intake of Solids: 18:00 Past Medical History Medical History HTN (hypertension) (Chronic) Past Family History Family History Other Hypertension Past Surgical History Surgical History S/P AAA repair (Resolved) Social History Smoking Status: Current every day smoker tobacco type: cigarettes Smoking cigarettes per day: 20 Do You Dip or Chew Tobacco: No Hx Alcohol Use: Yes Alcohol type: wine alcohol intake frequency: 0-2 drinks per day Hx Substance Use: No substance use type: does not use Review of Systems denies fever/cough/ colds/ chest pain/ SOB/ YAA denies [place]/CVA/Seizure reviewed GI/primary/cardiac note. recent stent Physical Exam Vital Signs Last Vital Signs Temp 37 C 09/01/19 11:57 Pulse 73 09/01/19 11:57 Resp 16 09/01/19 11:57 BP 181/84 H 09/01/19 11:57 Pulse Ox 98 09/01/19 11:57 ENMT Mouth: + dentures (top plate); no TMJ abnormality and no dentition abnormality Thyromental Distance: > or= 3.5 Finger Breadths Mallampati Class: II Neck neck extension not limited Respiratory normal respiratory effort; no respiratory distress Auscultation: lungs clear to auscultation bilaterally Cardiovascular Rate/Rhythm: regular rate and regular rhythm Neurologic moves all extremities Psychiatric Orientation: alert and oriented x 3 Testing Laboratory Results 09/01/19 04:04 09/01/19 04:04 PT 10.0 Seconds (9.0-12.0) 08/31/19 10:15 INR 1.0 (0.9-1.1) 08/31/19 10:15 APTT 25.4 Seconds (21.0-31.0) 08/31/19 10:15 Urine Color Yellow 08/31/19 10:50 Urine Appearance Clear (Clear) 08/31/19 10:50 Urine pH 7.0 (4.5-7.5) 08/31/19 10:50 Ur Specific C[place]il 1.004 (1.000-1.030) 08/31/19 10:50 Urine Protein Trace (Negative) H 08/31/19 10:50 Urine Glucose (UA) Negative (Negative) 08/31/19 10:50 Urine Ketones Negative (Negative) 08/31/19 10:50 Urine Nitrite Negative (Negative) 08/31/19 10:50 Ur Leukocyte Esterase 1+ (Negative) H 08/31/19 10:50 Urine WBC (Auto) 1-5 /hpf (0-5) 08/31/19 10:50 Urine RBC (Auto) 0-4 /hpf (0-4) 08/31/19 10:50 U Hyaline Cast (Auto) 0 /lpf (0-5) 08/31/19 10:50 U Epithel Cells (Auto) 5-10 /lpf (0-5) H 08/31/19 10:50 Urine Bacteria (Auto) Negative (Negative) 08/31/19 10:50 Blood Type AB Positive 08/31/19 11:14 Antibody Screen NEGATIVE 08/31/19 11:14
--- NOTE | 2019-09-01 13:01 | GI REPORT ---
Patient Name: Kp Azul Procedure Date: 09/01/2019 12:35 PM Date of : 1940 Admit Type: Inpatient Age: 78 Gender: Female Attending MD: Cedric Tran MD Procedure: Upper GI endoscopy Providers: Cedric Tran MD Referring MD: Mauricio Horner M.d. Indications: Unexplained iron deficiency anemia Medicines: Monitored Anesthesia Care Complications: No immediate complications. Estimated blood loss: None. Estimated Blood Loss: Estimated blood loss: none. Procedure: Pre-Anesthesia Assessment: - Prior Anticoagulants: The patient has taken no previous anticoagulant or antiplatelet agents. - ASA Grade Assessment: III - A patient with severe systemic disease. After obtaining informed consent, the endoscope was passed under direct vision. Throughout the procedure, the patient's blood pressure, pulse, and oxygen saturations were monitored continuously. The Endoscope was introduced through the mouth, and advanced to the second part of duodenum. The upper GI endoscopy was accomplished without difficulty. The patient tolerated the procedure well. Findings: The examined esophagus was normal. Moderate inflammation was found in the gastric antrum. Diffuse moderately erythematous mucosa without active bleeding and with no stigmata of bleeding was found in the duodenal bulb and the second portion of the duodenum with erosions present. Impression: - Normal esophagus. - Gastritis. - Erythematous duodenopathy. - No specimens collected. Recommendation: - PPI protonix 40 mg daily -plan for colonoscopy 09/03/18 -clear liquid diet today and tomorrow, prep with golytely starting 09/02/18 in the evening Cedric Tran MD 09/01/2019 1:00:57 PM This report has been signed electronically. Note Initiated On: 09/01/2019 12:35 PM Number of Addenda: 0 I attest to the content of the Intraoperative Record and orders documented therein, exceptions below {[id number]}
--- NOTE | 2019-09-01 13:19 | Anesthesiology Progress Note ---
Date of Service September 01, 2019 Anesthesia Post Procedure Vital Signs Vital Signs: Temp Pulse Pulse Resp BP BP Pulse Ox 09/01/19 13:10 54 L 18 163/71 H 98 09/01/19 12:55 36.5 C 64 16 137/69 97 09/01/19 11:57 37 C 73 16 181/84 H 98 09/01/19 07:37 36.8 C 61 18 101/63 96 08/31/19 23:46 36.3 C L 64 18 152/62 H 98 08/31/19 21:25 36.6 C 65 18 155/83 H 99 08/31/19 20:25 36.8 C 62 18 117/73 98 08/31/19 19:25 36.6 C 68 18 112/75 99 08/31/19 18:55 36.8 C 68 18 103/72 98 08/31/19 18:25 36.9 C 65 18 98/67 L 99 08/31/19 18:10 36.9 C 67 18 158/71 H 100 08/31/19 17:52 37.1 C 72 18 158/71 H 100 08/31/19 16:23 36.8 C 89 18 174/91 H 96 08/31/19 15:30 37.2 C 64 16 126/73 100 08/31/19 15:15 37.1 C 70 18 131/73 100 08/31/19 15:11 37 C 59 L 22 110/69 100 08/31/19 15:01 59 L 22 110/69 100 08/31/19 15:00 57 L 18 100 08/31/19 14:46 59 L 19 100 08/31/19 14:45 61 26 H 100 08/31/19 14:31 59 L 19 100 08/31/19 14:30 60 20 114/66 100 08/31/19 14:16 66 18 100 08/31/19 14:15 60 18 97/73 L 100 08/31/19 14:01 58 L 19 100 08/31/19 14:00 60 19 100/60 100 08/31/19 13:46 59 L 18 107/67 100 08/31/19 13:45 59 L 19 100 08/31/19 13:42 37 C 58 L 19 106/57 L 100 08/31/19 13:35 59 L 15 100 08/31/19 13:34 61 19 109/76 100 08/31/19 13:33 37.2 C 60 18 109/76 100 08/31/19 13:31 64 19 100 08/31/19 13:30 62 19 113/70 100 08/31/19 13:27 37.2 C 61 18 107/61 100 08/31/19 13:22 37.2 C Transfer of Care Handoff Completed per policy Notes Mental Status: alert / awake / arousable and participated in evaluation Patient Amnestic to Procedure: Yes Nausea / Vomiting: adequately controlled Pain: adequately controlled Airway Patency, RR, SpO2: stable & adequate BP & HR: stable & adequate Hydration State: stable & adequate Anesthetic Complications: no major complications apparent and Pt Satisfied with anesthetic care
--- NOTE | 2019-09-01 13:51 | Communication Note ---
Date of Service: September 01, 2019 GI brief procedure note: EGD showed gastritis and duodenitis, no active bleeding noted. Recs: protonix (or other PPI) daily clear liquid diet today and tomorrow, prep for colonoscopy starting 09/02 in the evening colonoscopy on 09/03 Cedric Tran MD Gastroenterology
[2019-09-01] MEDS: ATORVASTATIN 40 MG TAB PO SCH (14:16)
[2019-09-01] MEDS: TICAGRELOR 90 MG TAB PO SCH ×2 (14:16→20:34)
[2019-09-01] MEDS: LEVOTHYROXINE SODIUM 25 MCG TABLET PO SCH (14:17)
[2019-09-01 16:05] LABS: Basophils # (auto) 0.02 K/uL (0-0.2); Basophils % (auto) 0.4 %; Eosinophils # (auto) 0.07 K/uL (0-0.5); Eosinophils % (auto) 1.3 %; Hematocrit (blood only) 30.2 % (37-47); Hemoglobin 10.2 g/dL (12.0-16.0); Immature Granulocytes # (auto) 0.01 K/uL (0.00-0.02); Immature Granulocytes % (auto) 0.2 %; Lymphocytes # (auto) 1.21 K/uL (1.2-3.4); Lymphocytes % (auto) 22.1 %; Mean Corpuscular Hemoglobin 32.1 pg (25-34); Mean Corpuscular Hgb Conc 33.8 g/dL (32-36); Mean Platelet Volume 9.7 fL (7.4-10.4); Monocytes # (auto) 0.44 K/uL (0.11-0.59); Neutrophils # (auto) 3.73 K/uL (1.4-6.5); Platelet Count 295 K/uL (130-400); RDW Coefficient of Variation 15.6 % (11.5-14.5); RDW Standard Deviation 54.5 fL (36.4-46.3); Red Blood Count 3.18 M/uL (4.2-5.4); White Blood Count 5.48 K/uL (4.8-10.8)
[2019-09-01] MEDS: NICOTINE 14 MG/24 HR PATCH TD SCH (20:33)
[2019-09-01] MEDS: ASPIRIN 81 MG ECTAB PO SCH (20:34)
--- NOTE | 2019-09-01 23:15 | Hospitalist Progress Note ---
Date of Service September 01, 2019 Assessment & Plan (1) Anemia: Patient with symptomatic anemia. Hgb = 8.4, HCT = 26.2 which is down from 14 and 39.7, respectively on 07/18/2019. Normochromic, normocytic. Fecal occult blood positive stools noted in the ER. Patient denies any hematuria, m nano, hematochezia. No bleeding or bruising. Recent ST elevated [place] status post placement of drug-eluting stent x2 on 07/17/2019. She is on dual antiplatelet therapy with aspirin and Brilinta. Reports her last colonoscopy was years and years ago and she was told that she "should not eat popcorn" ? diverticulosis, patient is unsure. Admit to medical floor Maintain 2 large-bore peripheral IVs Transfuse 2 units of PRBCs -CBC every 12 hours. Transfuse for active bleed, symptomatic anemia, hemoglobin less than 7 GI consultationappreciate assistance Cardiology consultationappreciate assistance continueProtonix 40 mg IV twice daily EGD completed, showed signs of gastritis, no signs of GI bleed. will obtain colonoscopy on 09/03. Hemgolobin has been stable. Appears bleeding has stopped (2) Weakness: improved, likely secondary to anemia. Treatment of anemia as above (3) S/P coronary artery stent placement: Patient presented to [facility] on 07/17/[address] elevated NH status post cardiac catheterization status post stent placement to LAD and circumflex Continue aspirin and Brilinta for now. Patient does not have a rapid bleed and is hemodynamically stable. Hold lisinopril and metoprolol for now Cardiology consultation appreciated (4) CAD (coronary artery disease): As above. Patient with CAD status post cardiac cath with stent placement x2 in July of this year Continue aspirin and Brilinta Continue atorvastatin Hold Toprol and lisinopril Cardiology consult -Patient has scheduled follow-up with Dr. Rivera next week (5) Cardiomyopathy, ischemic: No evidence of volume overload at present Transfuse 2 units PRBCs Closely monitor volume status. Patient may need Lasix between units -Continue to monitor (6) Chronic kidney disease, stage III (moderate): BUN and creatinine near baseline. Patient follows with Dr. Brooks and is due to see him soon. Avoid nephrotoxic agents Renal dosing were needed (7) Tobacco abuse: Patient reports smoking approximately 1 pack/day. States that she typically likes them and lets them burn and does not inhale Nicotine 14 mg patch Smoking cessation counseling (8) HTN (hypertension): Blood pressure continues to be borderline low will hold lisinopril and metoprolol for now Continue to monitor Ppx - SCDs to bilateral LEs Code - Full Subjective 78 yo female reports feeling better today after having received PRBC during hospital stay. She states she is no longer dizzy and can ambulate the halls. She denies any new episodes of melena, hematoquezia, or vomiting blood. Review of Systems Review of Systems: All systems reviewed & are unremarkable except as noted in HPI & below Physical Exam Physical Exam: General: patient resting comfortably, NAD, non-toxic in appearance, AA&O x 4 Skin: warm, dry, intact, no rashes or lesions HEENT: NC/AT, PERRL, EOMI, anicteric sclera, conjunctiva without injection, mild pallor, external ear normal to inspection and nontender, nares patent, moist mucus membranes, dentition intact, no oropharyngeal lesions, neck supple, trachea midline, no LAD, no thyromegaly, no JVD Heart: +S1/S2, regular, no m/r/g Lungs: equal air entry bilaterally, no rales/rhonchi/wheezes Abd: +BS, soft, NT/ND, no masses/organomegaly/ascites Ext: warm, 2+ pulses in UE/LE bilaterally, no clubbing/cyanosis or edema Neuro: nonfocal, patient AA&O x 4, speech intact, no facial droop, moving all extremities on command with equal strength 5/5 Results & Data Vital Signs (Past 12 Hours) Vital Signs Temp Pulse Resp BP Pulse Ox 09/01/19 15:56 37.1 C 70 20 112/75 96 09/01/19 13:55 36.3 C L 59 L 20 179/74 H 100 09/01/19 13:25 58 L 18 138/72 99 09/01/19 13:10 54 L 18 163/71 H 98 09/01/19 12:55 36.5 C 64 16 137/69 97 09/01/19 11:57 37 C 73 16 181/84 H 98 PG Care Time/CCT Total # of Minutes Spent Total Time Spent with Patient: Total time spent is greater than 50% in coordination of care (as documented) at patient's floor/unit and/or counseling patient: (1) CAD (coronary artery disease) Associated angina: without angina Coronary Disease-Associated Artery/Lesion type: [place] artery [place] vs. transplanted heart: [place] heart Qualified Code(s): I25.10 - Atherosclerotic heart disease of [place] coronary artery without angina pectoris (2) Anemia Anemia type: unspecified type Qualified Code(s): D64.9 - Anemia, unspecified (3) HTN (hypertension) Hypertension type: essential hypertension Qualified Code(s): I10 - Essential (primary) hypertension
[2019-09-02 04:36] LABS: Basophils # (auto) 0.02 K/uL (0-0.2); Basophils % (auto) 0.3 %; Eosinophils % (auto) 1.6 %; Hematocrit (blood only) 29.6 % (37-47); Hemoglobin 9.7 g/dL (12.0-16.0); Lymphocytes # (auto) 1.53 K/uL (1.2-3.4); Lymphocytes % (auto) 24.8 %; Mean Corpuscular Hemoglobin 31.1 pg (25-34); Mean Corpuscular Hgb Conc 32.8 g/dL (32-36); Mean Corpuscular Volume 94.9 fL (80-100); Mean Platelet Volume 9.7 fL (7.4-10.4); Monocytes # (auto) 0.57 K/uL (0.11-0.59); Monocytes % (auto) 9.3 %; Neutrophils # (auto) 3.94 K/uL (1.4-6.5); Platelet Count 288 K/uL (130-400); RDW Coefficient of Variation 15.4 % (11.5-14.5); RDW Standard Deviation 53.9 fL (36.4-46.3); Red Blood Count 3.12 M/uL (4.2-5.4); White Blood Count 6.16 K/uL (4.8-10.8)
[2019-09-02] MEDS: NICOTINE 14 MG/24 HR PATCH TD SCH (08:12)
[2019-09-02] MEDS: LEVOTHYROXINE SODIUM 50 MCG TABLET PO SCH (08:16)
[2019-09-02] MEDS: TICAGRELOR 90 MG TAB PO SCH ×2 (08:16→20:48)
[2019-09-02] MEDS: PANTOprazole 40 MG in SYRINGE 0 ML IV SCH ×2 (08:16→20:49)
[2019-09-02] MEDS: ATORVASTATIN 40 MG TAB PO SCH (08:17)
--- NOTE | 2019-09-02 12:28 | Hospitalist Progress Note ---
Date of Service September 02, 2019 Assessment & Plan (1) Anemia: Patient with symptomatic anemia. Hgb = 8.4, HCT = 26.2 which is down from 14 and 39.7, respectively on 07/18/2019. Normochromic, normocytic. Fecal occult blood positive stools noted in the ER. Patient denies any hematuria, hal araceli, hematochezia. No bleeding or bruising. Recent ST elevated MS status post placement of drug-eluting stent x2 on 07/17/2019. She is on dual antiplatelet therapy with aspirin and Brilinta. Reports her last colonoscopy was years and years ago and she was told that she "should not eat popcorn" ? diverticulosis, patient is unsure. Transfused 2 units of PRBCs - Hb stable today at 9.7, no signs of bleeding continueProtonix 40 mg IV twice daily EGD completed 09/01, showed signs of gastritis, no signs of GI bleed. will obtain colonoscopy on 09/03. (2) Weakness: improved, likely secondary to anemia. Treatment of anemia as above (3) S/P coronary artery stent placement: Patient presented to [facility] on 07/17/[address] elevated MS status post cardiac catheterization status post stent placement to LAD and circumflex Continue aspirin and Brilinta for now. Patient does not have a rapid bleed and is hemodynamically stable. Hold lisinopril and metoprolol for now Cardiology consultation appreciated no chest pain or pressure reported (4) CAD (coronary artery disease): As above. Patient with CAD status post cardiac cath with stent placement x2 in July of this year Continue aspirin and Brilinta Continue atorvastatin Hold Toprol and lisinopril Cardiology consult -Patient has scheduled follow-up with Dr. Rivera next week (5) Cardiomyopathy, ischemic: No evidence of volume overload at present Transfuse 2 units PRBCs Closely monitor volume status. Patient may need Lasix between units - breathing well today, lungs are clear (6) Chronic kidney disease, stage III (moderate): BUN and creatinine near baseline. Patient follows with Dr. Brooks and is due to see him soon. Avoid nephrotoxic agents Renal dosing were needed (7) Tobacco abuse: Patient reports smoking approximately 1 pack/day. States that she typically likes them and lets them burn and does not inhale Nicotine 14 mg patch Smoking cessation counseling (8) HTN (hypertension): Blood pressure continues to be borderline low will hold lisinopril and metoprolol for now Continue to monitor Ppx - SCDs to bilateral LEs Code - Full Subjective patient feeling fine, she says she is tired of having just clears for diet explained that she can get back to normal diet after colonoscopy tomorrow no signs of rectal bleeding she denies abdominal pain, nausea, chest pain/pressure, dyspnea no fever or chills reviewed labs, Hb stable at 9.7 Review of Systems Review of Systems: All systems reviewed & are unremarkable except as noted in HPI & below Physical Exam Constitutional: WD/WN, vitals as above Eyes: PERRL, conjunctivae normal, anicteric sclerae ENMT: external ear and nose normal, oropharynx normal Neck: trachea midline, no thyromegaly Respiratory: normal respiratory effort, lungs clear to auscultation Cardiovascular: RRR, no murmur, no edema Gastrointestinal (Abdomen): normal bowel sounds, soft, nontender, no hepatosplenomegaly Musculoskeletal: no cyanosis or clubbing, extremities motor strength 5/5 Skin: no rashes, warm and dry Neurologic: patellar DTR's 2+ bilat, sensation intact and PERRL, EOMI, accommodation nl, no face palsy, no dysarthria Psychiatric: A+Ox3, euthymic affect Lymphatic: no cervical or axillary lymphadenopathy Results & Data Vital Signs (Past 12 Hours) Vital Signs Temp Pulse Resp BP Pulse Ox 09/02/19 07:26 36.9 C 56 L 20 101/68 98 Laboratory Results Laboratory Results - last 24 hr 09/02/19 04:20 WBC 6.16 RBC 3.12 L Hgb 9.7 L Hct 29.6 L MCV 94.9 MCH 31.1 MCHC 32.8 RDW Std Deviation 53.9 H RDW Coeff of Vanessa 15.4 H Plt Count 288 MPV 9.7 Immature Gran % (Auto) 0.0 Neut % (Auto) 64.0 Lymph % (Auto) 24.8 [place] % (Auto) 9.3 Eos % (Auto) 1.6 Baso % (Auto) 0.3 Immature Gran # (Auto) 0.00 Neut # (Auto) 3.94 Lymph # (Auto) 1.53 [place] # (Auto) 0.57 Eos # (Auto) 0.10 Baso # (Auto) 0.02 Medications Administered Current Inpatient Medications Acetaminophen (Tylenol) 650 mg PO Q4H PRN PRN Reason: pain/fever Stop: 09/30/19 16:06 Aspirin (Ecotrin Ectab) 81 mg PO HS [facility] Stop: 10/01/19 20:59 Last Admin: 09/01/19 20:34 Dose: 81 mg Documented by: Atorvastatin Calcium (Lipitor) 80 mg PO QAM [facility] Stop: 10/01/19 08:59 Last Admin: 09/02/19 08:17 Dose: 80 mg Documented by: Pantoprazole Sodium 40 mg/ (Syringe) 10 mls @ 5 mls/min IV BID@0900,2100 [facility] Stop: 09/30/19 21:59 Last Admin: 09/02/19 08:16 Dose: 5 mls/min Documented by: Levothyroxine Sodium (Synthroid) 25 mcg PO Q2D [facility] Stop: 10/01/19 08:59 Last Admin: 09/01/19 14:17 Dose: Not Given Documented by: Levothyroxine Sodium (Synthroid) 50 mcg PO Q2D [facility] Stop: 10/02/19 08:59 Last Admin: 09/02/19 08:16 Dose: 50 mcg Documented by: Miscellaneous (Remove Nicoderm Patch) 1 ea N/A DAILY@0859 [facility] Stop: 10/01/19 08:58 Last Admin: 09/02/19 08:11 Dose: Not Given Documented by: Nicotine (Nicoderm Cq) 14 mg TD QAM [facility] Stop: 10/01/19 08:59 Last Admin: 09/02/19 08:12 Dose: Not Given Documented by: Ticagrelor (Brilinta) 90 mg PO BID [facility] Stop: 09/30/19 20:59 Last Admin: 09/02/19 08:16 Dose: 90 mg Documented by: PG Care Time/CCT Total # of Minutes Spent Total Time Spent with Patient: Total time spent is greater than 50% in coordination of care (as documented) at patient's floor/unit and/or counseling patient: (1) CAD (coronary artery disease) Associated angina: without angina Coronary Disease-Associated Artery/Lesion type: [place] artery [place] vs. transplanted heart: [place] heart Qualified Code(s): I25.10 - Atherosclerotic heart disease of [place] coronary artery withou t angina pectoris (2) Anemia Anemia type: unspecified type Qualified Code(s): D64.9 - Anemia, unspecified (3) HTN (hypertension) Hypertension type: essential hypertension Qualified Code(s): I10 - Essential (primary) hypertension
[2019-09-02] MEDS ORDERED: LAVAGE SOLUTION 4000ML PO SCH (19:00)
[2019-09-02] MEDS: ASPIRIN 81 MG ECTAB PO SCH (20:48)
[2019-09-03] MEDS: NICOTINE 14 MG/24 HR PATCH TD SCH (07:31)
[2019-09-03] MEDS: ATORVASTATIN 40 MG TAB PO SCH (07:32)
[2019-09-03] MEDS: LEVOTHYROXINE SODIUM 25 MCG TABLET PO SCH (07:33)
[2019-09-03] MEDS: TICAGRELOR 90 MG TAB PO SCH ×2 (07:33→20:35)
[2019-09-03] MEDS: PANTOprazole 40 MG in SYRINGE 0 ML IV SCH ×2 (08:52→20:35)
--- NOTE | 2019-09-03 09:36 | History & Physical Bridge Note ---
Date of Service September 03, 2019 History & Physical Bridge Note I have examined the patient, reviewed the History & Physical and in the interval since the performance of the History & Physical I have noted the following changes of clinical significance: no changes noted on physical exam. Patient is NPO. She does acknowledge that she only completed 50% of her bowel prep. She is refusing to drink more. She reports that her stool is clear. H/H stable at 9.7/29.6. No reports of GI bleeding at present. Keep NPO. Proceed with colonoscopy. Supervising Physician Co-Signing Physician Notes I personally evaluated the patient and agree with the findings as documented by MAIA Lara proceed with colonoscopy. risks/benefits and procedure discussed with patient, who agrees to proceed
--- NOTE | 2019-09-03 11:16 | Anesthesiology Consultation ---
Date of Service September 03, 2019 Assessment & Plan (1) Encounter for pre-operative examination: Chart Review Chart Review: Acceptable Risk for Surgery and Patient NOT seen in Pre Admission Testing Consults Requested none History Surgery Operation Date: 09/01/19 15:35 Proposed Procedures p Esophagogastroduodenoscopy Dr. Marc Tran MD Operation Date: 09/03/19 16:45 Proposed Procedures p Colonoscopy Dr. Marc Tran MD Height/Weight Height: 5 ft 4 in Weight: 71.9 kg Allergies Allergy/AdvReac Type Severity Reaction Status Date / Time No Known Allergies Allergy Verified 09/03/19 10:42 Medications Home Medications Medication Instructions Recorded Confirmed Last Taken aspirin 81 mg tablet,delayed 81 mg PO DAILY 05/26/19 09/03/19 Unknown release cholecalciferol (vitamin D3) 2,000 4,000 units PO DAILY tab 05/26/19 09/03/19 Unknown unit tablet levothyroxine 25 mcg PO Q OTHER DAY 07/17/19 09/03/19 Unknown levothyroxine 50 mcg PO Q OTHER DAY 07/17/19 09/03/19 Unknown atorvastatin 80 mg PO QAM 30 Days #60 tab 07/19/19 09/03/19 Unknown lisinopril 2.5 mg PO QAM 30 Days #30 tab 07/19/19 09/03/19 Unknown metoprolol succinate [Toprol XL] 12.5 mg PO DAILY 30 Days #15 tab 07/19/19 09/03/19 Unknown ticagrelor [Brilinta] 90 mg PO BID 30 Days #60 tab 07/19/19 09/03/19 Unknown Active Medications Generic Name Dose Route Start Last Admin Trade Name Freq PRN Reason Stop Dose Admin Aspirin 81 mg 09/01/19 21:00 09/02/19 20:48 Ecotrin Ectab PO 10/01/19 20:59 81 mg HS BRIJESH Administration Atorvastatin Calcium 80 mg 09/01/19 09:00 09/03/19 07:32 Lipitor PO 10/01/19 08:59 80 mg QAM BRIJESH Administration Pantoprazole Sodium 40 mg/ 10 mls @ 5 mls/min 08/31/19 22:00 09/03/19 08:52 Syringe IV 09/30/19 21:59 5 mls/min BID@0900,2100 BRIJESH Administration Levothyroxine Sodium 25 mcg 09/01/19 09:00 09/03/19 07:33 Synthroid PO 10/01/19 08:59 25 mcg Q2D BRIJESH Administration Levothyroxine Sodium 50 mcg 09/02/19 09:00 09/02/19 08:16 Synthroid PO 10/02/19 08:59 50 mcg Q2D BRIJESH Administration Miscellaneous 1 ea 09/01/19 08:59 09/03/19 07:31 Remove Nicoderm Patch N/A 10/01/19 08:58 Not Given DAILY@0859 BRIJESH Nicotine 14 mg 09/01/19 09:00 09/03/19 07:31 Nicoderm Cq TD 10/01/19 08:59 Not Given QAM BRIJESH Ticagrelor 90 mg 08/31/19 21:00 09/03/19 07:33 Brilinta PO 09/30/19 20:59 90 mg BID BRIJESH Administration NPO Date Last Intake of Fluids: 09/02/19 Time Last Intake of Fluids: 23:59 Date Last Intake of Solids: 08/31/19 Time Last Intake of Solids: 08:00 Past Medical History Medical History HTN (hypertension) (Chronic) Past Family History Family History Other Hypertension Past Surgical History Surgical History S/P AAA repair (Resolved) Social History Smoking Status: Current every day smoker tobacco type: cigarettes Smoking cigarettes per day: 20 Do You Dip or Chew Tobacco: No Hx Alcohol Use: Yes Alcohol type: wine alcohol intake frequency: 0-2 drinks per day Hx Substance Use: No substance use type: does not use Physical Exam Vital Signs Last Vital Signs Temp 36.5 C 09/03/19 10:53 Pulse 67 09/03/19 10:53 Resp 16 09/03/19 10:53 BP 120/88 09/03/19 10:53 Pulse Ox 99 09/03/19 10:53 Testing Laboratory Results 09/02/19 04:20 09/01/19 04:04 PT 10.0 Seconds (9.0-12.0) 08/31/19 10:15 INR 1.0 (0.9-1.1) 08/31/19 10:15 APTT 25.4 Seconds (21.0-31.0) 08/31/19 10:15 Urine Color Yellow 08/31/19 10:50 Urine Appearance Clear (Clear) 08/31/19 10:50 Urine pH 7.0 (4.5-7.5) 08/31/19 10:50 Ur Specific [place] 1.004 (1.000-1.030) 08/31/19 10:50 Urine Protein Trace (Negative) H 08/31/19 10:50 Urine Glucose (UA) Negative (Negative) 08/31/19 10:50 Urine Ketones Negative (Negative) 08/31/19 10:50 Urine Nitrite Negative (Negative) 08/31/19 10:50 Ur Leukocyte Esterase 1+ (Negative) H 08/31/19 10:50 Urine WBC (Auto) 1-5 /hpf (0-5) 08/31/19 10:50 Urine RBC (Auto) 0-4 /hpf (0-4) 08/31/19 10:50 U Hyaline Cast (Auto) 0 /lpf (0-5) 08/31/19 10:50 U Epithel Cells (Auto) 5-10 /lpf (0-5) H 08/31/19 10:50 Urine Bacteria (Auto) Negative (Negative) 08/31/19 10:50 Blood Type AB Positive 08/31/19 11:14 Antibody Screen NEGATIVE 08/31/19 11:14
[2019-09-03] MEDS ORDERED: ePHEDrine sulfate 50 MG/ML AMP IV PRN (11:21)
[2019-09-03] MEDS ORDERED: ATROPINE SULFATE 0.1 MG/ML 10ML SYR IV PRN (11:21)
[2019-09-03] MEDS ORDERED: LIDOCAINE HCL 2% 2 ML VIAL/AMP(20MG/ML) INFIL ONE (12:34)
[2019-09-03] MEDS ORDERED: PROPOFOL IV EMULSION 10 MG/ML 20 ML VIAL IV ONE (12:34)
[2019-09-03] MEDS ORDERED: PHENYLEPHRINE 100MCG/ML 5ML SYR ONE (12:34)
--- NOTE | 2019-09-03 12:47 | Communication Note ---
Date of Service: September 03, 2019 GI brief procedure note: Colonoscopy No active bleeding noted throughout entire colon. Moderate-severe burden of diverticulosis was noted, likely etiology for her anemia. Also noted to have small polyps in the sigmoid colon that were removed. Large int hemorrhoids with prolapse were noted as well, nonbleeding. Recs: no contraindication to DAPT from GI perspective supportive care avoid NSAIDS (advil, motrin, aleve) as these have been shown to precipitate diverticular bleeding f/u path results if anemia persists/continues to be a problem, will likely need a capsule endoscopy as an outpatient rest of care as per primary team Cedric Tran MD Gastroenterology
--- NOTE | 2019-09-03 15:22 | Anesthesiology Progress Note ---
Date of Service September 03, 2019 Anesthesia Post Procedure Vital Signs Vital Signs: Temp Pulse Resp BP BP Pulse Ox 09/03/19 13:02 56 L 16 127/88 98 09/03/19 12:47 56 L 16 115/59 L 100 09/03/19 12:32 36.4 C L 54 L 16 104/54 L 99 09/03/19 10:53 36.5 C 67 16 120/88 99 09/03/19 07:26 36.6 C 65 16 166/70 H 98 09/03/19 00:11 36.5 C 65 20 109/59 L 98 09/02/19 15:56 36.8 C 70 18 167/84 H 100 Transfer of Care Handoff Completed per policy Notes Mental Status: alert / awake / arousable Patient Amnestic to Procedure: Yes Nausea / Vomiting: adequately controlled Pain: adequately controlled Airway Patency, RR, SpO2: stable & adequate BP & HR: stable & adequate Hydration State: stable & adequate Anesthetic Complications: no major complications apparent and Pt Satisfied with anesthetic care
[2019-09-03 15:32] LABS: Hemoglobin 10.2 g/dL (12.0-16.0); Mean Corpuscular Hemoglobin 31.8 pg (25-34); Mean Corpuscular Hgb Conc 32.9 g/dL (32-36); Mean Corpuscular Volume 96.6 fL (80-100); Mean Platelet Volume 9.7 fL (7.4-10.4); Platelet Count 312 K/uL (130-400); RDW Coefficient of Variation 14.9 % (11.5-14.5); RDW Standard Deviation 53.2 fL (36.4-46.3); Red Blood Count 3.21 M/uL (4.2-5.4); White Blood Count 7.84 K/uL (4.8-10.8)
[2019-09-03 15:51] LABS: BUN Creatinine Ratio 6.3 (10-20); Calcium 8.3 mg/dl (8.5-10.1); Creatinine Clr Calc Pharmacy 41.2 ml/min; Est GFR (African American) 54.7; Est GFR (Non-African American) 47.2; Potassium 4.1 mmol/L (3.5-5.1)
[2019-09-03] MEDS: ASPIRIN 81 MG ECTAB PO SCH (20:35)
[2019-09-03 21:17] LABS: Appearance Urine Clear (Clear); Bacteria Urine Automated 1+ (Negative); Bilirubin Urine Negative (Negative); Blood Urine 3+ (Negative); Color Urine Yellow; Epithelial Cell Urine Auto >30 /lpf (0-5); Glucose Urine UA Negative (Negative); Ketones Urine Negative (Negative); Leukocyte Esterase Urine 1+ (Negative); Nitrite Urine Negative (Negative); Protein Urine 1+ (Negative); RBC Urine Automated >30 /hpf (0-4); Specific Gravity Urine 1.009 (1.000-1.030); Urobilinogen Urine Negative (Negative)
--- NOTE | 2019-09-03 23:07 | Hospitalist Progress Note ---
Date of Service September 03, 2019 Assessment & Plan (1) Anemia: Patient with symptomatic anemia. Hgb = 8.4, HCT = 26.2 which is down from 14 and 39.7, respectively on 07/18/2019. Normochromic, normocytic. Fecal occult blood positive stools noted in the ER. Patient denies any hematuria, hal araceli, hematochezia. No bleeding or bruising. Recent ST elevated RI status post placement of drug-eluting stent x2 on 07/17/2019. She is on dual antiplatelet therapy with aspirin and Brilinta. Reports her last colonoscopy was years and years ago and she was told that she "should not eat popcorn" ? diverticulosis, patient is unsure. Transfused 2 units of PRBCs - Hb stable since, will reassess hemoglobin in AM as patient had a clot in the stool. - If level is stable will discharge in AM continueProtonix 40 mg IV twice daily EGD completed 09/01, showed signs of gastritis, no signs of GI bleed. -Colonoscopy was obtained. Showed diverticulosis. (2) Weakness: improved, likely secondary to anemia. Treatment of anemia as above (3) S/P coronary artery stent placement: Patient presented to [facility] on 07/17/[address] elevated RI status post cardiac catheterization status post stent placement to LAD and circumflex Continue aspirin and Brilinta for now. Patient does not have a rapid bleed and is hemodynamically stable. Hold lisinopril and metoprolol for now Cardiology consultation appreciated no chest pain or pressure reported (4) CAD (coronary artery disease): As above. Patient with CAD status post cardiac cath with stent placement x2 in July of this year Continue aspirin and Brilinta Continue atorvastatin Hold Toprol and lisinopril Cardiology consult -Patient has scheduled follow-up with Dr. Rivera next week (5) Cardiomyopathy, ischemic: No evidence of volume overload at present Transfused 2 units PRBCs earlier in hosptail stay Continue to monitor fluid status. (6) Chronic kidney disease, stage III (moderate): BUN and creatinine near baseline. Patient follows with Dr. Brooks and is due to see him soon. Avoid nephrotoxic agents Renal dosing were needed (7) Tobacco abuse: Patient reports smoking approximately 1 pack/day. States that she typically likes them and lets them burn and does not inhale Nicotine 14 mg patch Smoking cessation counseling (8) HTN (hypertension): Blood pressure continues to be borderline low will hold lisinopril and metoprolol for now Continue to monitor Ppx - SCDs to bilateral LEs Code - Full Subjective 78 yo female reports feeling well. She reports having a BM with a "clot" in it. She states she flusehd it before anyone can see it. Review of Systems Review of Systems: All systems reviewed & are unremarkable except as noted in HPI & below Physical Exam Physical Exam: Constitutional: WD/WN, vitals as above Eyes: PERRL, conjunctivae normal, anicteric sclerae ENMT: external ear and nose normal, oropharynx normal Neck: trachea midline, no thyromegaly Respiratory: normal respiratory effort, lungs clear to auscultation Cardiovascular: RRR, no murmur, no edema Gastrointestinal (Abdomen): normal bowel sounds, soft, nontender, no hepatosplenomegaly Musculoskeletal: no cyanosis or clubbing, extremities motor strength 5/5 Skin: no rashes, warm and dry Neurologic: patellar DTR's 2+ bilat, sensation intact and PERRL, EOMI, accommodation nl, no face palsy, no dysarthria Psychiatric: A+Ox3, euthymic affect Lymphatic: no cervical or axillary lymphadenopathy Results & Data Vital Signs (Past 12 Hours) Vital Signs Temp Pulse Resp BP BP Pulse Ox 09/03/19 23:03 36.6 C 65 16 172/77 H 97 09/03/19 13:02 56 L 16 127/88 98 09/03/19 12:47 56 L 16 115/59 L 100 09/03/19 12:32 36.4 C L 54 L 16 104/54 L 99 PG Care Time/CCT Total # of Minutes Spent Total Time Spent with Patient: Total time spent is greater than 50% in coordination of care (as documented) at patient's floor/unit and/or counseling patient: (1) CAD (coronary artery disease) Associated angina: without angina Coronary Disease-Associated Artery/Lesion type: [place] artery [place] vs. transplanted heart: [place] heart Qualified Code(s): I25.10 - Atherosclerotic heart disease of [place] coronary artery without angina pectoris (2) Anemia Anemia type: unspecified type Qualified Code(s): D64.9 - Anemia, unspecified (3) HTN (hypertension) Hypertension type: essential hypertension Qualified Code(s): I10 - Essential (primary) hypertension
[2019-09-04] MEDS ORDERED: METOPROLOL SUCC 25MG EXT REL TAB PO SCH (00:40)
[2019-09-04] MEDS: NICOTINE 14 MG/24 HR PATCH TD SCH (08:13)
[2019-09-04] MEDS: PANTOprazole 40 MG in SYRINGE 0 ML IV SCH (08:15)
[2019-09-04] MEDS: ATORVASTATIN 40 MG TAB PO SCH (08:15)
[2019-09-04] MEDS: LEVOTHYROXINE SODIUM 50 MCG TABLET PO SCH (08:15)
[2019-09-04] MEDS: TICAGRELOR 90 MG TAB PO SCH (08:15)
[2019-09-04 08:52] LABS: Hematocrit (blood only) 31.6 % (37-47); Hemoglobin 10.5 g/dL (12.0-16.0)
[2019-09-04 09:39] LABS: BUN Creatinine Ratio 7.7 (10-20); Calcium 8.6 mg/dl (8.5-10.1); Creatinine Clr Calc Pharmacy 36.6 ml/min; Est GFR (African American) 47.5
--- NOTE | 2019-09-04 09:48 | Cardiology Progress Note ---
Date of Service September 04, 2019 Subjective She feels better this morning. She denies any chest pain chest pressure chest h eaviness. She is been walking without any angina. She has any lightheadedness or dizziness. She has any shortness of breath or lower extremity edema. She did have some spotting after her colonoscopy and biopsy. This has since resolved. Results & Data Vital Signs (Past 12 Hours) Vital Signs Temp Pulse Resp BP Pulse Ox 09/04/19 07:11 36.4 C L 59 L 16 168/83 H 98 09/03/19 23:03 36.6 C 65 16 172/77 H 97 She is awake alert oriented x3 she looks older than her stated age. HEENT she has bilateral carotid bruit is much louder on the left compared to the right with a palpable thrill on the left Lungs coarse breath sounds throughout without obvious wheezing she does have underlying rhonchi Heart: Regular rate and rhythm no appreciable murmurs rubs or gallops Abdomen soft nondistended positive bowel sounds Extremities: No clubbing cyanosis or edema Impressions: 1. Acute on chronic anemia secondary to GI bleed likely gastritis versus diverticular disease 2. Coronary disease status post angioplasty and stenting 07/2019 to the left anterior descending artery and the circumflex 3. Cath report from 07/2019: LM -moderate caliber, luminal irregularities LAD -moderate caliber, proximal luminal irregularities, 80 to 90% mid segment disease, distal luminal irregularities as wraps around apex. Moderate caliber first diagonal with 30 to 40% mid segment disease. Circumflex -moderate caliber, 40% mid segment disease, 99% acute earlydistal focal stenosis prior to takeoff of OM 2, left PLB RCA -small to moderate caliber vessel, dominant, luminal irregularities 4. 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 She will need close monitoring of her hemoglobin. She is due to see me in the office in the next 1 to 2 weeks as this is already scheduled and we can check a hemoglobin at that point to make sure remained stable. If she were to have continued GI bleeding in addition to the mentioned of capsule endoscopy recommended by the GI service we could consider at 3 months out from her catheterization stopping her Plavix and switching her only to aspirin therapy. If she is otherwise stable with her concerns for future bleeding at 6 months her Plavix can be safely discontinued and switched to aspirin at that point with minimal risk of stent thrombosis. She needs aggressive medical therapy to reduce her risk of progressive cardiovascular disease. We discussed avoiding NSAIDs as well as the need for proton pump inhibitor therapy post discharge.
[2019-09-04] MEDS ORDERED: PANTOprazole 40 MG TAB PO SCH (21:00)
--- NOTE | 2019-09-08 00:29 | GI REPORT ---
Patient Name: Kp Azul Procedure Date: 09/03/2019 11:41 AM Date of : 1940 Admit Type: Inpatient Age: 78 Gender: Female Attending MD: Cedric Tran MD Procedure: Colonoscopy Providers: Cedric Tran MD Referring MD: Mauricio Horner M.d. Indications: Unexplained iron deficiency anemia Medicines: Monitored Anesthesia Care Complications: No immediate complications. Estimated blood loss: None. Estimated Blood Loss: Estimated blood loss: none. Procedure: Pre-Anesthesia Assessment: - Prior Anticoagulants: The patient has taken no previous anticoagulant or antiplatelet agents. - ASA Grade Assessment: III - A patient with severe systemic disease. After I obtained informed consent, the scope was passed under direct vision. Throughout the procedure, the patient's blood pressure, pulse, and oxygen saturations were monitored continuously. The Colonoscope was introduced through the anus and advanced to the cecum, identified by appendiceal orifice and ileocecal valve. The colonoscopy was performed without difficulty. The patient tolerated the procedure well. The quality of the bowel preparation was fair. Findings: Hemorrhoids were found on perianal exam. Eight sessile polyps were found in the recto-sigmoid colon and sigmoid colon. The polyps were 4 mm in size. These polyps were removed with a cold biopsy forceps. Resection and retrieval were complete. Estimated blood loss: none. Multiple small and large-mouthed diverticula were found in the sigmoid colon, descending colon and ascending colon. No active bleeding noted throughout the procedure. Non-bleeding external and internal hemorrhoids were found during retroflexion. The hemorrhoids were large. Impression: - Preparation of the colon was fair. - Hemorrhoids found on perianal exam. - Eight 4 mm polyps at the recto-sigmoid colon and in the sigmoid colon, removed with a cold biopsy forceps. Resected and retrieved. - Diverticulosis in the sigmoid colon, in the descending colon and in the ascending colon. - Non-bleeding external and internal hemorrhoids. Recommendation: - Await pathology results. - Discharge patient to home (with escort). - Resume previous diet today. -suspect anemia was likely related to diverticular disease -avoid NSAIDS -No contraindication to DAPT from GI perspective -rest of care as per primary team Cedric Tran MD 09/08/2019 12:29:06 AM This report has been signed electronically. Note Initiated On: 09/03/2019 11:41 AM Number of Addenda: 0 I attest to the content of the Intraoperative Record and orders documented therein, exceptions below {[id number]}
--- NOTE | 2019-09-09 10:54 | Discharge Summary ---
Date of Service September 04, 2019 Admission HPI Per Admitting Provider Kp Azul is a 78-year-old female with history of CAD, ischemic cardiomyopathy, hypertension, CKD stage III, and hypothyroidism. She was recently admitted on 07/17/2019 with complaint of chest tightness, found to have ST depressions on her EKG. She was urgently taken to the [facility] and found to have occlusion of distal circumflex and LAD. She had placement of 2 drug- eluting stents with adequate reperfusion attained. She was started on aspirin and Brilinta and discharged home in stable condition on 07/19/2019. She is scheduled to see Dr. Castro again in follow-up next week. She presents today with complaint of progressive weakness x1 week as well as dyspnea on exertion and decreased exercise tolerance. Her symptoms began with bilateral lower extremity weakness but now she complains of generalized weakness. She denies chest pain/palpitations/dizziness/syncope. Denies nausea/vomiting/diarrhea/constipation. Denies melena/hematochezia/hematemesis/hematuria. She denies bruising or bleeding On arrival to the ER she was found to be afebrile, hemodynamically stable. Intake labs revealed hemoglobin of 8.4 and hematocrit of 26.2 which was decreased significantly from prior values of 14 and 39.7, respectively on 07/18/2019. FOBT = positive in the ER ER course: Albuterol, Pepcid, magnesium, Protonix, normal saline Principal Diagnosis Anemia Discharge Exam Constitutional: WD/WN, vitals as above Eyes: PERRL, conjunctivae normal, anicteric sclerae ENMT: external ear and nose normal, oropharynx normal Neck: trachea midline, no thyromegaly Respiratory: normal respiratory effort, lungs clear to auscultation Cardiovascular: RRR, no murmur, no edema Gastrointestinal (Abdomen): normal bowel sounds, soft, nontender, no hepatosplenomegaly Musculoskeletal: no cyanosis or clubbing, extremities motor strength 5/5 Skin: no rashes, warm and dry Neurologic: patellar DTR's 2+ bilat, sensation intact and PERRL, EOMI, accommodation nl, no face palsy, no dysarthria Psychiatric: A+Ox3, euthymic affect Lymphatic: no cervical or axillary lymphadenopathy Discharge Data Allergies Allergy/AdvReac Type Severity Reaction Status Date / Time No Known Allergies Allergy Verified 09/03/19 10:42 Consultations 12/30/19 11:25 ED Decision to Admit Stat 08/31/19 16:07 Consult Cardiology Routine Consult Gastroenterology Routine Procedures Performed Operation Date: 09/01/19 15:35 Actual Procedures p Esophagogastroduodenoscopy - Cedric Tran MD Operation Date: 09/03/19 16:45 Actual Procedures p Colonoscopy Polypectomy - Cedric Tran MD Ordered Studies 08/31/19 10:17 CT head/brain wo con Stat Hospital Course (1) Anemia: Patient with symptomatic anemia. Hgb = 8.4, HCT = 26.2 which is down from 14 and 39.7, respectively on 07/18/2019. Normochromic, normocytic. Fecal occult blood positive stools noted in the ER. Patient denies any hematuria, melena, hematochezia. No bleeding or bruising. Recent ST elevated MN status post placement of drug-eluting stent x2 on 07/17/2019. She is on dual antiplatelet therapy with aspirin and Brilinta. Reports her last colonoscopy was years and years ago and she was told that she "should not eat popcorn" ? diverticulosis, patient is unsure. Transfused 2 units of PRBCs - Hb stable since, montitored patient for over 48 hours.. - If level is stable will discharge in AM EGD completed 09/01, showed signs of gastritis, no signs of GI bleed. -Colonoscopy was obtained. Showed diverticulosis. Wondering if patient has AVM from diverticulosis. will recommend to monitor hemoglobin as outpatient. Recommend patient to avoid NSAIDs (2) Weakness: improved, likely secondary to anemia. Treatment of anemia as above (3) S/P coronary artery stent placement: Patient presented to [facility] on 07/17/[address] elevated MN status post cardiac catheterization status post stent placement to LAD and circumflex Continue aspirin and Brilinta for now. Patient does not have a rapid bleed and is hemodynamically stable. Hold lisinopril and metoprolol for now Cardiology consultation appreciated no chest pain or pressure reported (4) CAD (coronary artery disease): As above. Patient with CAD status post cardiac cath with stent placement x2 in July of this year Continue aspirin and Brilinta Continue atorvastatin Hold Toprol and lisinopril Cardiology consult -Patient has scheduled follow-up with Dr. Rivera next week (5) Cardiomyopathy, ischemic: No evidence of volume overload at present Transfused 2 units PRBCs earlier in hosptail stay Continue to monitor fluid status. (6) Chronic kidney disease, stage III (moderate): BUN and creatinine near baseline. Patient follows with Dr. Brooks and is due to see him soon. Avoid nephrotoxic agents Renal dosing were needed (7) Tobacco abuse: Patient reports smoking approximately 1 pack/day. States that she typically likes them and lets them burn and does not inhale Nicotine 14 mg patch Smoking cessation counseling (8) HTN (hypertension): Blood pressure continues to be borderline low will hold lisinopril and metoprolol for now Continue to monitor Total Time Total Time Spent Total Time Spent (In Minutes): 32 Total Time Includes: Examination of the Patient, Discharge Planning and Medication Reconciliation Discharge Plan Discharge Items Patient Disposition: Home - Self-Care Reason For Visit: SYMPTOMATIC ANEMIA Discharge Diagnosis: Symptomatic anemia Activity: Resume your previous activity Non-emergency contact: Primary Care Provider Call non-emergency contact if: you have any medication questions Follow-up/Referrals: Courtney Naik MD [Primary Care Provider] - 09/10/19 1:10 pm (Please, follow up at THE [facility] OFFICE with Dr. Courtney Naik' associate, Dr. Ruth Olivera, on SaturdaySeptember 10 at 1:10. The office is located in [address] OF [facility] [employer], [facility]. There were no openings at the [facility] office. If you need to change/cancel this appointment, call the office at [phone].) Diet: Regular Addtl Attending Provider Instructions: Dietary fiber and a vegetarian diet may reduce the likelihood of symptoms from diverticular disease Recommend followup with GI in 4 weeks. Recommend followup with PCP in 1-2 weeks check hemoglobin in 1 week avoid NSAIDS (advil, motrin, aleve) as these have been shown to precipitate diverticular bleeding Pending Studies at Discharge: No Stand-Alone Forms: My emotion.me, Smoking Cessation Medications and DC Order Prescriptions: New pantoprazole 40 mg tablet,delayed release (DR/EC) 40 mg PO DAILY Qty: 30 RF: 0 Continued cholecalciferol (vitamin D3) 2,000 unit tablet 4,000 units PO DAILY RF: 0 levothyroxine 50 mcg tablet 50 mcg PO Q OTHER DAY RF: 0 levothyroxine 25 mcg tablet 25 mcg PO Q OTHER DAY RF: 0 Brilinta 90 mg Tablet 90 mg PO BID 30 Days Qty: 60 RF: 3 atorvastatin 40 mg Tablet 80 mg PO QAM 30 Days Qty: 60 RF: 3 lisinopril 2.5 mg Tablet 2.5 mg PO QAM 30 Days Qty: 30 RF: 3 metoprolol succinate [Toprol XL] 25 mg tablet extended release 24 hr 12.5 mg PO DAILY 30 Days Qty: 15 RF: 3 Discontinued aspirin [Adult Low Dose Aspirin] 81 mg tablet,delayed release (DR/EC) 81 mg PO DAILY RF: 0 Discharge Orders: Discharge Order (Routine); Ordered 09/04/19 Ordered By: Mauricio Horner Admission Data Admit Date/Time: 08/31/19 12:51 Attending Provider: Mauricio Horner Admit Provider: Karoline Mcdonald Primary Care Provider: Courtney Naik Other Providers: Karoline Mcdonald ; Cedric Tran ; Yousuf Rivera Other Interventions: Discharge Summary Assessment (RN) Last Done: 09/04/19 12:38 DC Date/Time DO NOT enter until pt leaves facility: 09/04/19 12:54
== END 2019-09-04 12:54 | disposition home or self-care (01) | DRG 392 ==
LOC: ED 10:04 → SUATTDRO 12:51 → 2W 12:51

== ENCOUNTER 2019-11-09 08:07 | Observation (INO) ==
--- NOTE | 2019-11-09 08:27 | Emergency Department Note ---
Entered by Theresa Torre acting as a scribe for History of Present Illness General Chief complaint: Weakness Stated complaint: sob/weakness Time Seen by Provider: 11/09/19 08:08 Source: patient Mode of arrival: EMS History of Present Illness Onset (ago): month(s) 2 Location: head (weakness) Severity: similar to prior episodes Pain Consistency: + other (worsening) Quality: + other (weakness) Exacerbated By: + movement Associated symptoms: + shortness of breath and + weakness; no chest pain, no fever/chills, no nausea/vomiting and no other (dizziness, light-headed, abdo cassia pain, back pain, bloody stools ) Treatments prior to arrival: none The patient is a 79 year old female presenting to the Emergency Department via EMS complaining of worsening weakness starting 2 months ago. The patient reports that she has been feeling generally weak. She states that she is sometimes short of breath and has woken up from her sleep before from being short of breath. She explains that walking around worsens her shortness of breath. She notes she experienced these symptoms before in September 2019 when she was severely anemic and received a blood transfusion. She adds that she had a GI bleed at that time. The patient reports that she has a cough. 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 She notes that she follows with Dr. Fisher PCP. She adds that she smokes cigarettes. The patient denies chest pain, fevers, chills, dizziness, light-headed, nausea, vomiting, abdominal pain, back pain, bloody stools and recent travel. Home Medications Home Medications Medication Instructions Recorded Confirmed Type cholecalciferol (vitamin D3) 50 4,000 units PO HS tab 05/26/19 11/09/19 History mcg (2,000 unit) tablet levothyroxine 25 mcg PO Q OTHER DAY 07/17/19 11/09/19 History levothyroxine 50 mcg PO Q OTHER DAY 07/17/19 11/09/19 History Brilinta 90 mg PO BID 30 Days #60 tab 07/19/19 11/09/19 Rx atorvastatin 80 mg PO QAM 30 Days #60 tab 07/19/19 11/09/19 Rx lisinopril 2.5 mg PO QAM 30 Days #30 tab 11/17/19 03/09/20 Rx hydralazine 10 mg tablet 10 mg PO TID tab 09/24/19 11/09/19 History metoprolol succinate [Toprol XL] 12.5 mg PO QAM 11/09/19 11/09/19 History Allergies Allergy/AdvReac Type Severity Reaction Status Date / Time No Known Allergies Allergy Verified 11/09/19 08:43 Past Med/Surg History Medical History CAD (coronary artery disease) HTN (hypertension) (Chronic) Surgical History S/P AAA repair (Resolved) Family History Other Hypertension Social History Preferred Language: [place] Communication Ability: Effective 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 and A total of 10 systems reviewed and were otherwise negative Physical Exam Vital Signs Vital Signs - 24 hr 11/09/19 08:14 11/09/19 08:19 11/09/19 11:03 Temperature 36.9 C Temperature Source Oral Pulse Rate 84 82 Pulse Rate from SpO2 Sensor 81 Respiratory Rate 20 22 Blood Pressure 155/101 H 117/82 Blood Pressure Mean 119 91 Pulse Oximetry 100 100 99 Oxygen Delivery Method Room Air Room Air Room Air Sepsis Recent Fever Within 48 Hours No Sepsis New/Unexplained Change in Mental Status No Sepsis Action Taken by Nursing No Action Required 11/09/19 11:30 11/09/19 12:00 11/09/19 12:31 Temperature Temperature Source Pulse Rate 70 85 76 Pulse Rate from SpO2 Sensor 70 83 75 Respiratory Rate 17 20 20 Blood Pressure 132/83 126/87 123/77 Blood Pressure Mean 91 92 89 Pulse Oximetry 99 98 99 Oxygen Delivery Method Sepsis Recent Fever Within 48 Hours Sepsis New/Unexplained Change in Mental Status Sepsis Action Taken by Nursing 11/09/19 13:00 11/09/19 13:38 Temperature Temperature Source Pulse Rate 79 77 Pulse Rate from SpO2 Sensor 78 73 Respiratory Rate 22 24 Blood Pressure Blood Pressure Mean Pulse Oximetry 98 100 Oxygen Delivery Method Sepsis Recent Fever Within 48 Hours Sepsis New/Unexplained Change in Mental Status Sepsis Action Taken by Nursing General: Non-ill appearing older female in no acute distress. HEENT: Normal cephalic atraumatic. Pupils are equal round and reactive to light. Extraocular movements are intact. Oropharynx is pink with moist mucous membranes. No swelling of the mouth lips or tongue. Neck: Supple with a midline trachea. No meningeal signs or stiffness, no JVD or bruits. No Stridor. Chest: Rhonchi bilaterally. No increased work of breathing. Heart: regular rate and rhythm. Abdomen: Soft nontender, nondistended without rebound guarding or rigidity. Rectal: Melanotic stool which was guiac positive confirmed by nurse. Extremities: No cyanosis clubbing or edema. No calf tenderness or asymmetry Spine/Back. Non tender to palpation. No CVA tenderness Skin: Good turgor without rashes. Neurologic exam: Cranial nerves two through 12 are intact. Motor and sensation are intact and symmetrical throughout. Course Course 0812: The patient was evaluated in room C7, and a complete history and physical examination were performed. 1106: I performed a rectal exam in presence of female nurse four slide machine setter at this time. See exam findings. 1115: I discussed the patients case with Dr. Bain [facility] hospitalist. She will evaluate the patient for further management. Administered Medications Doxycycline Hyclate 100 mg/ (Dextrose) 110 mls @ 50 mls/hr IV Q12 BRIJESH Stop: 11/16/19 20:59 Last Admin: 11/09/19 14:22 Dose: 50 mls/hr Documented by: [id number] Ioversol (Optiray 320 125ml) 119 ml IV ONCE PRN PRN Reason: Interaction Checking Stop: 11/13/19 13:21 Last Admin: 11/09/19 13:22 Dose: 119 ml Documented by: [id number] Discontinued Medications Furosemide (Lasix) 40 mg IV NOW STA Stop: 11/09/19 12:13 Last Admin: 11/09/19 12:54 Dose: 40 mg Documented by: [id number] Ceftriaxone Sodium (Rocephin) 1,000 mg in 50 mls @ 100 mls/hr IV NOW STA Stop: 11/09/19 13:00 Last Infusion: 11/09/19 14:22 Dose: 0 mls/hr Documented by: [id number] Admin: 11/09/19 13:39 Dose: 100 mls/hr Documented by: [id number] Medical Decision Making Differential Diagnosis Differential diagnoses include anemia, GI bleed, CHF, cardiac disease and electrolyte or metabolic abnormality amongst others. Medical Records Attestation: I reviewed the patient's medical records. Home Medications Current Medication List: was personally reviewed by me Laboratory Data Attestation: I reviewed the patient's lab results. Result diagrams: 11/09/19 08:21 11/09/19 08:21 Lab Results 11/09/19 11/09/19 11/09/19 Range/Units 08:21 08:21 08:21 WBC 12.69 H (4.8-10.8) K/uL RBC 3.60 L (4.2-5.4) M/uL Hgb 10.3 L (12.0-16.0) g/dL Hct 31.4 L (37-47) % MCV 87.2 (80-100) fL MCH 28.6 (25-34) pg MCHC 32.8 (32-36) g/dL RDW Std Deviation 54.7 H (36.4-46.3) fL RDW Coeff of Vanessa 17.2 H (11.5-14.5) % Plt Count 348 (130-400) K/uL MPV 10.0 (7.4-10.4) fL Immature Gran % (Auto) 0.2 % Neut % (Auto) 82.2 % Lymph % (Auto) 12.1 % [place] % (Auto) 4.9 % Eos % (Auto) 0.4 % Baso % (Auto) 0.2 % Immature Gran # (Auto) 0.02 (0.00-0.02) K/uL Neut # (Auto) 10.44 H (1.4-6.5) K/uL Lymph # (Auto) 1.53 (1.2-3.4) K/uL [place] # (Auto) 0.62 H (0.11-0.59) K/uL Eos # (Auto) 0.05 (0-0.5) K/uL Baso # (Auto) 0.03 (0-0.2) K/uL Sodium 136 (136-145) mmol/L Potassium 4.3 (3.5-5.1) mmol/L Chloride 107 (98-107) mmol/L Carbon Dioxide 22 (21-32) mmol/L Anion Gap 7.0 (3-11) BUN 15 (7-18) mg/dl Creatinine 1.09 (0.6-1.2) mg/dl Est Cr Clr Drug Dosing 40.4 ml/min Est GFR ( Amer) 56.7 Est GFR (Non-Af Amer) 48.9 BUN/Creatinine Ratio 14.1 (10-20) Glucose 116 H (70-99) mg/dl Calcium 8.7 (8.5-10.1) mg/dl Total Bilirubin 0.3 (0.2-1) mg/dl AST 25 (15-37) U/L ALT 25 (12-78) U/L Alkaline Phosphatase 149 H (45-117) U/L Troponin I 0.033 (0-0.045) ng/ml Total Protein 7.3 (6.4-8.2) gm/dl Albumin 3.5 (3.4-5.0) gm/dl Globulin 3.8 (2.5-4.0) gm/dl Albumin/Globulin Ratio 0.9 (0.9-2) TSH 4.620 H (0.300-4.500) uIu/ml Free T4 1.19 (0.8-1.6) ng/dl Urine Color Urine Appearance (Clear) Urine pH (4.5-7.5) Ur Specific Lawrence (1.000-1.030) Urine Protein (Negative) Urine Glucose (UA) (Negative) Urine Ketones (Negative) Urine Blood (Negative) Urine Nitrite (Negative) Urine Bilirubin (Negative) Urine Urobilinogen (Negative) Ur Leukocyte Esterase (Negative) Urine WBC (Auto) (0-5) /hpf Urine RBC (Auto) (0-4) /hpf U Hyaline Cast (Auto) (0-5) /lpf U Epithel Cells (Auto) (0-5) /lpf Urine Bacteria (Auto) (Negative) Influenza Type A (PCR) (Neg) Influenza Type B (PCR) (Neg) Blood Type AB Positive Antibody Screen NEGATIVE 11/09/19 11/09/19 Range/Units 11:00 13:40 WBC (4.8-10.8) K/uL RBC (4.2-5.4) M/uL Hgb (12.0-16.0) g/dL Hct (37-47) % MCV (80-100) fL MCH (25-34) pg MCHC (32-36) g/dL RDW Std Deviation (36.4-46.3) fL RDW Coeff of Vanessa (11.5-14.5) % Plt Count (130-400) K/uL MPV (7.4-10.4) fL Immature Gran % (Auto) % Neut % (Auto) % Lymph % (Auto) % [place] % (Auto) % Eos % (Auto) % Baso % (Auto) % Immature Gran # (Auto) (0.00-0.02) K/uL Neut # (Auto) (1.4-6.5) K/uL Lymph # (Auto) (1.2-3.4) K/uL [place] # (Auto) (0.11-0.59) K/uL Eos # (Auto) (0-0.5) K/uL Baso # (Auto) (0-0.2) K/uL Sodium (136-145) mmol/L Potassium (3.5-5.1) mmol/L Chloride (98-107) mmol/L Carbon Dioxide (21-32) mmol/L Anion Gap (3-11) BUN (7-18) mg/dl Creatinine (0.6-1.2) mg/dl Est Cr Clr Drug Dosing ml/min Est GFR ( Amer) Est GFR (Non-Af Amer) BUN/Creatinine Ratio (10-20) Glucose (70-99) mg/dl Calcium (8.5-10.1) mg/dl Total Bilirubin (0.2-1) mg/dl AST (15-37) U/L ALT (12-78) U/L Alkaline Phosphatase (45-117) U/L Troponin I (0-0.045) ng/ml Total Protein (6.4-8.2) gm/dl Albumin (3.4-5.0) gm/dl Globulin (2.5-4.0) gm/dl Albumin/Globulin Ratio (0.9-2) TSH (0.300-4.500) uIu/ml Free T4 (0.8-1.6) ng/dl Urine Color Yellow Urine Appearance Clear (Clear) Urine pH 6.0 (4.5-7.5) Ur Specific [place] 1.007 (1.000-1.030) Urine Protein 1+ H (Negative) Urine Glucose (UA) Negative (Negative) Urine Ketones Negative (Negative) Urine Blood Negative (Negative) Urine Nitrite Negative (Negative) Urine Bilirubin Negative (Negative) Urine Urobilinogen Negative (Negative) Ur Leukocyte Esterase Negative (Negative) Urine WBC (Auto) 1-5 (0-5) /hpf Urine RBC (Auto) 0-4 (0-4) /hpf U Hyaline Cast (Auto) 0 (0-5) /lpf U Epithel Cells (Auto) 0-5 (0-5) /lpf Urine Bacteria (Auto) Negative (Negative) Influenza Type A (PCR) Neg for Influ A (Neg) Influenza Type B (PCR) Neg for Influ B (Neg) Blood Type Antibody Screen Imaging Data Radiologist's Impression: Radiology results as stated below per my review and the radiologist's interpretation: XR chest 1V portable CLINICAL HISTORY: weakness dyspnea COMPARISON STUDY: 08/31/2019 FINDINGS: Mild cardiomegaly. Mild chronic prominence of pulmonary vasculature. Slight blunting of the lateral costophrenic angles bilaterally. IMPRESSION: 1. Mild stable cardiomegaly. 2. Pulmonary venous congestion with trace amount pleural fluid at the lateral costophrenic angles bilaterally. ACT 112: Negative or not required by law. The above report was generated using voice recognition software. It may contain grammatical, syntax or spelling errors. Electronically signed by: Ketan Colunga M.D. 11/09/2019 8:38 AM ECG Data Attestation: I personally reviewed and interpreted this ECG as follows: Indication: + weakness Rate (beats per minute): 72 Rhythm: + normal sinus ECG Intervals/blocks: + Left bundle branch block ECG Findings: + Other (Non-specific T wave abnormalities. ) Comparison ECG Date: from (08/21/19) Change: no significant change Blood Pressure Blood Pressure Findings: Elevated blood pressure Blood Pressure Disposition: further management by hospitalist JORGE ALBERTO Narrative Cardiac Monitoring: An order was placed for continuous cardiac monitoring. The monitor shows a rate of 84 with sinus rhythm. This patient comes in as described above. She has been having increasing weakness over the last month or so. She did have a transfusion in March for GI bleed. she had some polyps which were cauterized. she tells me she has had no recent GI bleed. She has noticed no blood or melena in her stool. No chest pain. She does have some shortness of breath and there was a smoker and that seems to be more chronic. No fever or chills. No nausea, vomiting, or d iarrhea. No focal numbness or weakness. No abdominal or back pain. IV access established, EKG, and multiple blood testing was obtained. I also obtained a chest x-ray. She was reassessed frequently. Her hemoglobin is low at 10.3. I did a rectal exam and she has melanotic heme positive stool. she has been typed and screened. She says this feels like when her hemoglobin was low before. EKG does not suggest any ischemic changes. She has no acute electrolyte or metabolic abnormalities. She may have some mild congestive changes on her chest x-ray. I do think she needs to be admitted/observe for rectal bleeding/GI bleed/anemia. I have consulted the hospitalist from [facility] to see her for these measures. Impression & Plan GI bleed, Anemia, Weakness, SOB (shortness of breath) Discharge Plan Visit Data Chief Complaint: Weakness Stated Complaint: sob/weakness ED Provider: Jose Frank Discharge Problem: GI bleed, Anemia, Weakness, SOB (shortness of breath) Patient Disposition: Being Evaluated by Hospitalist Forms Stand Alone Forms: My [facility] Prescriptions Prescriptions: No Action cholecalciferol (vitamin D3) 2,000 unit tablet 4,000 units PO HS RF: 0 hydralazine 10 mg tablet 10 mg PO TID RF: 0 levothyroxine 50 mcg tablet 50 mcg PO Q OTHER DAY RF: 0 levothyroxine 25 mcg tablet 25 mcg PO Q OTHER DAY RF: 0 Brilinta 90 mg Tablet 90 mg PO BID 30 Days Qty: 60 RF: 3 atorvastatin 40 mg Tablet 80 mg PO QAM 30 Days Qty: 60 RF: 3 lisinopril 2.5 mg Tablet 2.5 mg PO QAM 30 Days Qty: 30 RF: 3 metoprolol succinate [Toprol XL] 25 mg tablet extended release 24 hr 12.5 mg PO QAM RF: 0 Referrals Referrals: Courtney Naik MD [Primary Care Provider] - Discharge Problem: GI bleed Qualifiers: GI bleed type/associated pathology: melena Qualified Code(s): K92.1 - Melena Anemia Qualifiers: Anemia type: iron deficiency Iron deficiency anemia type: chronic blood loss Qualified Code(s): D50.0 - Iron deficiency anemia secondary to blood loss (chronic) The scribe's documentation has been prepared under my direction and personally reviewed by me in its entirety. I confirm that the note above accurately reflects all work, treatment, procedures, and medical decision making performed by me.
[2019-11-09 08:38] LABS: Basophils # (auto) 0.03 K/uL (0-0.2); Basophils % (auto) 0.2 %; Eosinophils # (auto) 0.05 K/uL (0-0.5); Eosinophils % (auto) 0.4 %; Hematocrit (blood only) 31.4 % (37-47); Hemoglobin 10.3 g/dL (12.0-16.0); Immature Granulocytes # (auto) 0.02 K/uL (0.00-0.02); Immature Granulocytes % (auto) 0.2 %; Lymphocytes # (auto) 1.53 K/uL (1.2-3.4); Lymphocytes % (auto) 12.1 %; Mean Corpuscular Hemoglobin 28.6 pg (25-34); Mean Corpuscular Hgb Conc 32.8 g/dL (32-36); Mean Corpuscular Volume 87.2 fL (80-100); Monocytes # (auto) 0.62 K/uL (0.11-0.59); Monocytes % (auto) 4.9 %; Neutrophils # (auto) 10.44 K/uL (1.4-6.5); Neutrophils % (auto) 82.2 %; Platelet Count 348 K/uL (130-400); RDW Coefficient of Variation 17.2 % (11.5-14.5); RDW Standard Deviation 54.7 fL (36.4-46.3); White Blood Count 12.69 K/uL (4.8-10.8)
--- NOTE | 2019-11-09 08:39 | XRay Report ---
XR chest 1V portable CLINICAL HISTORY: weakness dyspnea COMPARISON STUDY: 08/31/2019 FINDINGS: Mild cardiomegaly. Mild chronic prominence of pulmonary vasculature. Slight blunting of the lateral costophrenic angles bilaterally. IMPRESSION: 1. Mild stable cardiomegaly. 2. Pulmonary venous congestion with trace amount pleural fluid at the lateral costophrenic angles rocky aterally. ACT 112: Negative or not required by law. The above report was generated using voice recognition software. It may contain grammatical, syntax or spelling errors. Electronically signed by: Ketan Colunga M.D. 11/09/2019 8:38 AM
[2019-11-09 09:02] LABS: Albumin Level 3.5 gm/dl (3.4-5.0); BUN Creatinine Ratio 14.1 (10-20); Calcium 8.7 mg/dl (8.5-10.1); Creatinine Clr Calc Pharmacy 40.4 ml/min; Est GFR (African American) 56.7; Est GFR (Non-African American) 48.9; Potassium 4.3 mmol/L (3.5-5.1)
[2019-11-09 09:12] LABS: Albumin Globulin Ratio 0.9 (0.9-2); Bilirubin,Total 0.3 mg/dl (0.2-1); Globulin 3.8 gm/dl (2.5-4.0); Thyroid Stimulating Hormone 4.62 uIu/ml (0.300-4.500); Total Protein 7.3 gm/dl (6.4-8.2); Troponin I 0.033 ng/ml (0-0.045)
[2019-11-09 09:24] LABS: T4 Free Thyroxine 1.19 ng/dl (0.8-1.6)
[2019-11-09 11:23] LABS: Appearance Urine Clear (Clear); Bacteria Urine Automated Negative (Negative); Bilirubin Urine Negative (Negative); Blood Urine Negative (Negative); Cast Urine Automated 0 /lpf (0-5); Color Urine Yellow; Epithelial Cell Urine Auto 0-5 /lpf (0-5); Glucose Urine UA Negative (Negative); Ketones Urine Negative (Negative); Leukocyte Esterase Urine Negative (Negative); Nitrite Urine Negative (Negative); Protein Urine 1+ (Negative); RBC Urine Automated 0-4 /hpf (0-4); Specific Gravity Urine 1.007 (1.000-1.030); Urobilinogen Urine Negative (Negative)
--- NOTE | 2019-11-09 11:48 | History & Physical Report ---
Date of Service November 09, 2019 Assessment & Plan (1) Pneumonia: - Admit to med surg with tele - Possible pneumonia as seen on CXR, lung exam with crackles, exp wheeze, but cannot see with edema, will give one dose of lasix and consider repeat chest imaging tomorrow - CT chest for PE with increased SOB x 10 days to r/o, no LE edema or pain with calf squeeze, kidney function is good. - Start on ceftriaxone and doxycycline IV - Check BCx x 2, lactic acid and procalitonin now - Duo nebs, incentive spirometry, flutter, Mucinex, Tessalon Perles, sputum culture - Check influenza and mrsa swab - No recent travel including flights or outside the [place]. (2) Tobacco abuse: -Has smoked entire life, currently smokes 5 cigarettes/day, smokes inside her home so regardless of her cessation she would still be exposed to secondhand smoke, cessation was encouraged -Patient declined nicotine patch- states she does not need it during inpatient stay -Does not require supplemental O2 at baseline, currently on room air with O2 sats 99% (3) Anemia: - Follow H&H q6H x 24 hrs - Consult GI, Dr. Tran, consider another c-scope to identify the source of possible bleed- noted in colonoscopy report 09/03/19 that the prep was fair, no active bleeding at that time. EGD was also done on 09/01/19 and impression of gastritis, erythematous duodenopathy but no active bleed. - Pt continued on Brilinta after hospital dc on 09/04/2019 and Asa was discontinued -continue brilinta - Heme check all stools, initial guiac here in the ER was positive. - No need for blood transfusion at this time. Type and screen ordered. Consent will need to be obtained by attending physician. (4) Weakness: - Likely secondary to above - PT/OT consults (5) CAD (coronary artery disease): (6) ST elevation (STEMI) myocardial infarction: (7) Cardiomyopathy, ischemic: (8) S/P coronary artery stent placement: - Sp NSTEMI in Jul 2019 s/p 2 NARCISO stent, follows with Dr. Rivera as outpt. - CXR with bilateral pulmonary venous congestion, + expiratory wheeze, + crackles at bases - as above for possible pna - Check BNP - Check TTE-- Last echo completed July 2019 showed EF =45 to 50%, akinesis of inferior lateral wall. Mild to moderate concentric LVH, mild mitral regurg. - Lasix 40 mg IV x1 dose now - Continue metoprolol succinate 12.5 mg PO QAM - Hold lisinopril 2.5 mg QAM and hydralazine 10 mg TID for now, patient missed BP meds this morning and BP is stable at 117/82--with administration of Lasix (9) S/P AAA repair: -History of such in 2014, underwent procedure in [place], follows there with vascular (10) HTN (hypertension): - Continue metoprolol as above (11) Chronic kidney disease, stage III (moderate): - Appears to be at baseline, BUN = 15, creatinine = 1.09 - Holding lisinopril with administration of Lasix as above - CTPE - Monitor am prp (12) DVT prophylaxis: teds, no chemical ppx in the setting of gi bleed CODE: Full code Dispo: From home, likely to remain in the hospital x 2 days History of Present Illness Primary Care Provider: Courtney Naik MD This is a 79 yo F with PMHx of anemia, GI bleed with chronic bleeding polyp, CAD, NSTEMI s/p 2 NARCISO placed on 07/17/19 and was on dual antiplatelet therapy with Brilinta and asa, cardiomyopathy, HTN, CKD stg III, tobacco use and hypothyroidism who presents with weakness and heme + stools. Her hgb is 10.2. Pt had last colonoscopy on by Dr Marc johnson, with multiple findings including polyps, diverticula and large internal and external hemorrhoids. At that time it was thought that her anemia was secondary to diverticulosis although there was no active bleeding identified at that time. She was told to continue Brilinta only upon discharged in early September to home. Patient notes that she has been feeling worse, increased weakness, cough, sputum production, white expectorant, and difficulty sleeping flat on her back for ~10 days. She reports that she has been unable to climb a flight of stairs without becoming short of breath. She has been smoking for her entire life, upwards of 2 PPD, currently only smokes 5 cigarettes/day, and her smokes at home inside her house. She does not use O2 at baseline, inhalers or nebulizers. She does exercise routinely, but has not been able to recently due to increased ANDRADE and fatigue. She denies any increased swelling in her feet or ankles. She denies fever, sweats, chills or sick contacts and has not traveled recently. Patient notes that she has not particularly been looking for any blood with BMs, but has not noticed any BRBPR, blood streaking, or hematochezia. She has been told that she looks more pale recently. Her hemmocult here in the ER is positive, but she has a hx of internal and external hemorrhoids, as well as diverticular disease found during last hospitalization. Patient has been taking her medications as prescribed including Brilinta and blood pressure medications, however missed all this morning. She has been tolerating oral intake without difficulty. She denies any other acute complaints. Allergies Allergy/AdvReac Type Severity Reaction Status Date / Time No Known Allergies Allergy Verified 11/09/19 08:43 Home Medications Home Medications Medication Instructions Recorded Confirmed Type cholecalciferol (vitamin D3) 50 4,000 units PO HS tab 05/26/19 11/09/19 History mcg (2,000 unit) tablet levothyroxine 25 mcg PO Q OTHER DAY 07/17/19 11/09/19 History levothyroxine 50 mcg PO Q OTHER DAY 07/17/19 11/09/19 History Brilinta 90 mg PO BID 30 Days #60 tab 07/19/19 11/09/19 Rx atorvastatin 80 mg PO QAM 30 Days #60 tab 07/19/19 11/09/19 Rx lisinopril 2.5 mg PO QAM 30 Days #30 tab 07/19/19 11/09/19 Rx hydralazine 10 mg tablet 10 mg PO TID tab 09/24/19 11/09/19 History metoprolol succinate [Toprol XL] 12.5 mg PO QAM 11/09/19 11/09/19 History Past Med/Surg History Medical History CAD (coronary artery disease) HTN (hypertension) (Chronic) Surgical History S/P AAA repair (Resolved) Family History Other Hypertension Social History Preferred Language: Italian Communication Ability: Effective Rug Designer Required: No Beliefs That Will Affect Care: None marital status: Current Living Situation: Spouse Feels Safe at Home: Yes Safety Concerns: Feels Safe At This Time Smoking Status: Current every day smoker Tobacco Type: cigarettes ; Cigarettes Per Day: 5 ; Second Hand Exposure: No ; Hx Alcohol Use: Yes Alcohol type: wine Hx Substance Use: No Review of Systems Review of Systems: Constitutional: No fever, sweats or chills, no lightheadedness or dizziness Eyes: No diplopia, no worsening or blurred vision ENT: normal hearing, no trouble swallowing Respiratory: As per HPI Cardiovascular: No chest pain, tightness or palpitations Abdomen: No pain, nausea, vomiting, diarrhea or constipation, no BRBPR or hematochezia : No dysuria, hematuria Musculoskeletal: No joint pain, calf pain, swelling Neurologic: + weakness, no numbness/tingling, or balance problems Psychiatric: No anxiety or depression Skin: No rash or itch Physical Exam Physical Exam: General: awake, alert, no apparent distress, + pallor Head: Normocephalic, atraumatic ENT: PERRL, EOMI, no pharyngeal exudate, mucous membranes moist Chest: on room air, coarse breath sounds throughout with expiratory wheeze, + rhonchi bilateral bases Cardiac: Regular rate and rhythm, no murmur, no JVD, normal peripheral pulses, good capillary refill Abdominal: NABS x 4 quadrants, soft, nondistended, nontender to palpation, no rebound, guarding or tenderness Extremities: Normal inspection, no peripheral edema or erythema, calfs nontender to palpation Psych: Normal mood and affect Neuro: AAO x 3, strength intact bilaterally and rated 5/5, no motor deficits, speech is clear, no peripheral sensory deficits Skin: no rash or erythema Results & Data Vital Signs (Past 12 Hours) Vital Signs Temp Pulse Resp BP Pulse Ox 11/09/19 11:03 82 22 117/82 99 11/09/19 08:19 100 11/09/19 08:14 36.9 C 84 20 155/101 H 100 Diagnostic Findings XR chest 1V portable CLINICAL HISTORY: weakness dyspnea COMPARISON STUDY: 08/31/2019 FINDINGS: Mild cardiomegaly. Mild chronic prominence of pulmonary vasculature. Slight blunting of the lateral costophrenic angles bilaterally. IMPRESSION: 1. Mild stable cardiomegaly. 2. Pulmonary venous congestion with trace amount pleural fluid at the lateral costophrenic angles bilaterally. ACT 112: Negative or not required by law. The above report was generated using voice recognition software. It may contain grammatical, syntax or spelling errors. ECG Additional Comments: 09-NOV-2019 08:22:59 [facility]-EDSTAT ROUTINE RETRIEVAL Normal sinus rhythm Septal infarct , age undetermined ST & T wave abnormality, consider lateral ischemia Abnormal ECG When compared with ECG of 31-AUG-2019 10:11, Premature ventricular complexes are no longer Present Left bundle branch block is no longer Present Septal infarct is now Present 25mm/s 10mm/mV 150Hz 9.0.9 12SL 241 TAYO: 15 Unconfirmed Vent. rate 72 BPM OH interval 150 ms QRS duration 118 ms QT/QTc 450/492 ms P-R-T axes 78 -23 120 Code Status & VTE Plan Code Status Full code-discussed with the patient at bedside Supervising Physician Co-Signing Physician Notes I have seen and examined patient with Deanna Love PA-C and agree with the assessment and plan. My Exam: General: awake, alert, no apparent distress, + pallor Head: Normocephalic, atraumatic ENT: PERRL, EOMI, no pharyngeal exudate, mucous membranes moist Chest: CTAB Cardiac:RRR, no JVD, normal peripheral pulses, good capillary refill Abdominal:soft, obese, mildly tender, no rebound Extremities: Normal inspection, no peripheral edema or erythema, calfs nontender to palpation Psych: Normal mood and affect Neuro: AAO x 3, strength intact bilaterally and rated 5/5, no motor deficits, speech is clear, no peripheral sensory deficits Skin: no rash or erythema PG Care Time/CCT Total # of Minutes Spent Total Time Spent with Patient: Total time spent is greater than 50% in coordination of care (as documented) at patient's floor/unit and/or counseling patient: Coding Level of Care Code 50624 Initial Inpt Care Lvl 3 Diagnoses Pneumonia J18.9 Tobacco abuse Z72.0 Anemia D64.9 Anemia type: unspecified type Weakness R53.1 CAD (coronary artery disease) I25.10 Associated angina: without angina Coronary Disease-Associated Artery/Lesion type: apache artery [place] vs. transplanted heart: apache heart ST elevation (STEMI) myocardial infarction I21.3 Involved coronary artery: unspecified coronary artery Cardiomyopathy, ischemic I25.5 S/P coronary artery stent placement Z95.5 S/P AAA repair Z98.890; Z86.79 HTN (hypertension) I10 Hypertension type: essential hypertension Chronic kidney disease, stage III (moderate) N18.3 DVT prophylaxis Z29.9 (1) CAD (coronary artery disease) Associated angina: without angina Coronary Disease-Associated Artery/Lesion type: apache artery [place] vs. transplanted heart: apache heart Qualified Code(s): I25.10 - Atherosclerotic heart disease of apache coronary artery without angina pectoris (2) Anemia Anemia type: unspecified type Qualified Code(s): D64.9 - Anemia, unspecified (3) ST elevation (STEMI) myocardial infarction Involved coronary artery: unspecified coronary artery Qualified Code(s): I21.3 - ST elevation (STEMI) myocardial infarction of unspecified site (4) HTN (hypertension) Hypertension type: essential hypertension Qualified Code(s): I10 - Essential (primary) hypertension
[2019-11-09] MEDS ORDERED: FUROSEMIDE 40 MG/4 ML VIAL IV STA (12:12)
[2019-11-09] MEDS ORDERED: cefTRIAXone SODIUM 1,000 MG/50 ML BAG IV STA (12:31)
[2019-11-09] MEDS ORDERED: OPTIRAY 320 125ml IV PRN (13:22)
--- NOTE | 2019-11-09 13:38 | CT Scan Report ---
CT angio chest PE protocol CLINICAL HISTORY: 79 years-old Female presenting with weakness, shortness of breath, clinical concern for pulmonary embolus. TECHNIQUE: Multidetector CT angiography of the chest was performed after administration of intravenou s contrast. 3-D volumetric and/or maximum intensity projection (MIP) images were subsequently reconst ructed for review. IV contrast: 119 mL of Optiray 320. One or more dose lowering techniques were used consistent with the principles of ALARA (as low as reasonably achievable), including automatic expos ure control, mA or kV adjustment to individual patient size, and/or use of iterative reconstruction. COMPARISON: 06/01/2015. CT DOSE (mGy.cm): The estimated cumulative dose is 247.67 mGy.cm. FINDINGS: Position Classifier topogram: Unremarkable. Pulmonary vasculature: The study is adequate for assessment of the pulmonary vascular tree. No filling defect within the pul monary arteries to suggest embolus. Main pulmonary artery is not enlarged. No flattening of the inter ventricular septum. No intracardiac filling defect. No reflux of contrast into the hepatic veins. Remaining chest: Soft tissues: Normal thyroid and thoracic inlet. No axillary, supraclavicular, mediastinal, or hilar lymphadenopathy. Extensive calcified atherosclerotic plaque with focal moderate stenosis in the proxi mal descending thoracic aorta (50-70% stenosis). Normal heart size. Coronary artery and aortic valve calcification. No pericardial or pleural effusion. Upper abdomen normal. Lungs and airways: No pneumothorax. Mild lower lobe predominant bronchial wall thickening. Central ai rways patent. Pulmonary arteries mildly enlarged relative to adjacent bronchi. Mild interlobular sept al thickening may be present at the lung bases. Subpleural predominant reticular opacities with a bas ilar predominance. Musculoskeletal: Normal osseous structures. IMPRESSION: 1. No evidence of pulmonary embolus. 2. Focal calcified atherosclerotic plaque results in moderate stenosis of the proximal descending th oracic aorta (50-70% stenosis). 3. Basilar predominant subpleural reticulation may suggest underlying interstitial lung disease or f ibrosis. 4. Mild bronchial wall thickening suggest bronchitis. ACT 112: Negative or not required by law. Electronically signed by: Shan Almazan M.D. 11/09/2019 1:37 PM
[2019-11-09] MEDS: DOXYCYCLINE HYCLATE 100 MG in DEXTROSE 5% 100 ML IV SCH (14:22)
[2019-11-09 14:28] LABS: Influenza A virus by PCR Neg for Influ A (Neg); Influenza B virus by PCR Neg for Influ B (Neg)
--- NOTE | 2019-11-09 15:33 | Electrocardiogram Report ---
Test Reason : Blood Pressure : / mmHG Vent. Rate : 072 BPM Atrial Rate : 072 BPM P-R Int : 150 ms QRS Dur : 120 ms QT Int : 450 ms P-R-T Axes : 078 -23 120 degrees QTc Int : 492 ms Normal sinus rhythm Left bundle branch block Abnormal ECG When compared with ECG of 31-AUG-2019 10:11, Premature ventricular complexes are no longer Present Confirmed by Shyam Ellis ([id number]) on 11/09/2019 3:32:58 PM Referred By: Confirmed By:Shyam Ellis
[2019-11-09] MEDS ORDERED: ACETAMINOPHEN 325 MG TAB PO PRN (15:36)
[2019-11-09] MEDS ORDERED: ONDANSETRON INJ 2 MG/ML 2 ML VIAL IV PRN (15:36)
[2019-11-09] MEDS ORDERED: BENZONATATE 100 MG CAPSULE PO PRN (15:36)
[2019-11-09] MEDS ORDERED: LEVOTHYROXINE SODIUM 25 MCG TABLET PO SCH (16:00)
[2019-11-09 16:05] LABS: Hematocrit (blood only) 33.4 % (37-47); Hemoglobin 10.9 g/dL (12.0-16.0)
[2019-11-09] MEDS: METOPROLOL SUCC 25MG EXT REL TAB PO SCH (16:17)
[2019-11-09] MEDS: ALBUT/IPRATROP 3MG/0.5MG NEB 3 ML VIAL NEB SCH ×3 (16:22→23:08)
--- NOTE | 2019-11-09 16:42 | Gastrointestinal Consultation ---
Date of Consultation November 09, 2019 Assessment & Plan (1) Anemia: (2) GI bleed: unclear if this is a true GI bleed, no overt blood loss. No contraindications to DAPT from a GI perspective at this time. Recs: 1. obtain a bleeding scan, if positive will consider further endoscopic evaluation 2. supportive care, trend H/H 3. rest of care as per primary team Thank you for allowing me to participate in the care of this patient. History of Present Illness Attending Physician: Amara Bain MD 79 yo female here with weakness and cough. GI consulted for possible GI bleed, heme positive stool. She underwent EGD and colonoscopy with me two months ago which showed diverticulosis and large hemorrhoids but no active bleeding. On Brilinta and ASA DAPT, hgb is noted to be 10.9 today which is improved compared to 2 months ago when she had her procedures. BUN is wnl. She denies hematochezia, hematemesis, melena, just feels very weak at home. Having a productive cough, CXR results are noted and CTA shows possible bronchitis. Labs reviewed. EGD and colonoscopy as above. Allergies Allergy/AdvReac Type Severity Reaction Status Date / Time No Known Allergies Allergy Verified 11/09/19 08:43 Home Medications Home Medications Medication Instructions Recorded Confirmed Type cholecalciferol (vitamin D3) 50 4,000 units PO HS tab 05/26/19 11/09/19 History mcg (2,000 unit) tablet levothyroxine 25 mcg PO Q OTHER DAY 07/17/19 11/09/19 History levothyroxine 50 mcg PO Q OTHER DAY 07/17/19 11/09/19 History Brilinta 90 mg PO BID 30 Days #60 tab 07/19/19 11/09/19 Rx atorvastatin 80 mg PO QAM 30 Days #60 tab 07/19/19 11/09/19 Rx lisinopril 2.5 mg PO QAM 30 Days #30 tab 07/19/19 11/09/19 Rx hydralazine 10 mg tablet 10 mg PO TID tab 09/24/19 11/09/19 History metoprolol succinate [Toprol XL] 12.5 mg PO QAM 11/09/19 11/09/19 History Patient History Medical History CAD (coronary artery disease) HTN (hypertension) (Chronic) Surgical History S/P AAA repair (Resolved) Family History Other Hypertension Social History Preferred Language: Belgian Communication Ability: Effective It Risk And Assurance Manager Required: No Beliefs That Will Affect Care: None marital status: Current Living Situation: Spouse Feels Safe at Home: Yes Safety Concerns: Feels Safe At This Time Smoking Status: Current every day smoker Tobacco Type: cigarettes ; Cigarettes Per Day: 5 ; Second Hand Exposure: No ; Hx Alcohol Use: Yes Alcohol type: wine Hx Substance Use: No Review of Systems Constitutional: no fever, no chills and no weight loss Eyes: as per Subjective / HPI Ear, Nose, Mouth, Throat: as per Subjective / HPI Respiratory: no dyspnea and no dyspnea on exertion Cardiovascular: no chest pain and no palpitations Gastrointestinal: as per Subjective / HPI Musculoskeletal: no joint pain and no swelling Integumentary: no rash and no lesions Neurologic: no numbness and no paresthesia Psychiatric: no depression and no anxiety Endocrine: no fatigue Hematologic / Lymphatic: no easy bleeding and no easy bruising Physical Exam Constitutional: WD/WN, vitals as above Eyes: EOM intact bilaterally Neck: normal visual inspection Respiratory: normal respiratory effort, lungs clear to auscultation Cardiovascular: RRR, no murmur, no edema Gastrointestinal (Abdomen): Inspection/Auscultation: abdomen normal to inspection; abdomen not distended Percussion/Palpation: abdomen soft; abdomen nontender and no hepatosplenomegaly Musculoskeletal: Extremities: no cyanosis Gait: normal gait Skin: no rashes, warm and dry Neurologic: moves all extremities Psychiatric: A+Ox3, euthymic affect Results & Data ([facility]) Vital Signs (Past 12 Hours) Vital Signs Temp Pulse Pulse Pulse Resp BP BP 11/09/19 16:23 94 H 20 11/09/19 16:15 36.5 C 82 18 112/76 11/09/19 15:58 97 H 11/09/19 15:00 83 23 11/09/19 14:30 76 19 120/86 11/09/19 14:00 74 19 115/75 11/09/19 13:38 77 24 11/09/19 13:00 79 22 11/09/19 12:31 76 20 123/77 11/09/19 12:00 85 20 126/87 11/09/19 11:30 70 17 132/83 11/09/19 11:03 82 22 117/82 11/09/19 08:19 11/09/19 08:14 36.9 C 84 20 155/101 H Pulse Ox 11/09/19 16:23 98 11/09/19 16:15 98 11/09/19 15:58 11/09/19 15:00 98 11/09/19 14:30 99 11/09/19 14:00 99 11/09/19 13:38 100 11/09/19 13:00 98 11/09/19 12:31 99 11/09/19 12:00 98 11/09/19 11:30 99 11/09/19 11:03 99 11/09/19 08:19 100 11/09/19 08:14 100 PG Care Time/CCT Total # of Minutes Spent Total Time Spent with Patient: Total time spent is greater than 50% in coordination of care (as documented) at patient's floor/unit and/or counseling patient: Coding Level of Care Code 05025 Initial Inpt Care Lvl 3 Diagnoses Anemia D50.0 Anemia type: iron deficiency Iron deficiency anemia type: chronic blood loss GI bleed K92.1 GI bleed type/associated pathology: melena (1) Anemia Anemia type: iron deficiency Iron deficiency anemia type: chronic blood loss Qualified Code(s): D50.0 - Iron deficiency anemia secondary to blood loss (chronic) (2) GI bleed GI bleed type/associated pathology: melena Qualified Code(s): K92.1 - Melena
[2019-11-09] MEDS: guaiFENesin 600 MG TABCR PO SCH (20:11)
[2019-11-09] MEDS: TICAGRELOR 90 MG TAB PO SCH (20:11)
[2019-11-09] MEDS ORDERED: CHOLECALCIFEROL 1,000 UNITS 25 MCG TAB PO SCH (21:00)
[2019-11-10] MEDS ORDERED: LORazepam 0.5 MG TAB PO STA (00:48)
[2019-11-10] MEDS: ALBUT/IPRATROP 3MG/0.5MG NEB 3 ML VIAL NEB SCH ×4 (02:46→15:35)
[2019-11-10] MEDS ORDERED: LEVOTHYROXINE SODIUM 50 MCG TABLET PO SCH (06:30)
[2019-11-10 06:54] LABS: Hematocrit (blood only) 28.5 % (37-47); Hemoglobin 9.3 g/dL (12.0-16.0); Mean Corpuscular Hemoglobin 27.8 pg (25-34); Mean Corpuscular Hgb Conc 32.6 g/dL (32-36); Mean Corpuscular Volume 85.3 fL (80-100); Mean Platelet Volume 9.9 fL (7.4-10.4); Platelet Count 325 K/uL (130-400); RDW Coefficient of Variation 17.3 % (11.5-14.5); RDW Standard Deviation 53.5 fL (36.4-46.3); Red Blood Count 3.34 M/uL (4.2-5.4); White Blood Count 8.07 K/uL (4.8-10.8)
[2019-11-10 07:33] LABS: BUN Creatinine Ratio 13.9 (10-20); Calcium 8.5 mg/dl (8.5-10.1); Creatinine Clr Calc Pharmacy 33.6 ml/min; Est GFR (Non-African American) 43.1; Potassium 3.7 mmol/L (3.5-5.1)
[2019-11-10 07:41] LABS: Albumin Globulin Ratio 0.8 (0.9-2); Bilirubin,Total 0.4 mg/dl (0.2-1); Globulin 3.7 gm/dl (2.5-4.0); Total Protein 6.7 gm/dl (6.4-8.2)
[2019-11-10] MEDS: METOPROLOL SUCC 25MG EXT REL TAB PO SCH (07:53)
[2019-11-10] MEDS: guaiFENesin 600 MG TABCR PO SCH (07:54)
[2019-11-10] MEDS: TICAGRELOR 90 MG TAB PO SCH (07:54)
[2019-11-10] MEDS ORDERED: ATORVASTATIN 40 MG TAB PO SCH (09:00)
[2019-11-10] MEDS: DOXYCYCLINE HYCLATE 100 MG in DEXTROSE 5% 100 ML IV SCH (09:34)
--- NOTE | 2019-11-10 13:09 | Hospitalist Progress Note ---
Date of Service November 10, 2019 Assessment & Plan (1) Acute bronchitis: nebs. doxy. mucinex. supportive care. defer on steroids for now. (2) Anemia: Colonoscopy report 09/03/19 that the prep was fair, no active bleeding at that time. EGD was also done on 09/01/19 and impression of gastritis, erythematous duodenopathy but no active bleed. Heme+ stool in the ER yesterday - and H/H mildly lower today. Obtained bleeding scan - no active bleed on that scan today. H/H this afternoon were stable relative to this am. Stable h/h and neg bleeding scan argue against active GI bleeding (this was suspected by GI). Fe studies c/w severe Fe def anemia. B12 level low-normal. Start iron replacement. (3) Tobacco abuse: counseled to quit (4) Weakness: likely due to respiratory illness in setting of anemia also patient reports very poor sleep x 2 months - we discussed outpatient sleep study (5) CAD (coronary artery disease): (6) ST elevation (STEMI) myocardial infarction: history of (7) Cardiomyopathy, ischemic: mild systolic CHF, EF 40-45% compensated on exam this am cont BB resume LAZARO (8) S/P coronary artery stent placement: NSTEMI in Jul 2019 s/p 2 NARCISO stent, follows with Dr. Rivera as outpt. cont BB resume LAZARO (9) S/P AAA repair: History of such in 2014, underwent procedure in [place] (10) HTN (hypertension): BB LAZARO hydralazine (11) Chronic kidney disease, stage III (moderate): Cr 1.2 this am baseline 1.1 stable Admission and Anticipated Discharge Date Admission Date: November 09, 2019 Subjective patient frustrated that she is on clear liquid diet and voiced she wanted to leave [facility], stating she didn't feel she needed "to be here" in the hospital. c/o cough. weakness improved. no melena or BRBPR. asked "if she was having that test" (that GI had recommended). tele overnight wnl. Physical Exam Constitutional: average body habitus and + frail appearing; no acute distress and no altered mental status ENMT: external ear and nose normal, oropharynx normal Respiratory: + cough; no respiratory distress Auscultation: + wheezes Cardiovascular: Rate/Rhythm: regular rate and regular rhythm Heart Sounds: normal S1 and normal S2; no murmur Vessels: posterior tibial pulses present and dorsalis pedis pulses present; no JVD Extremities: no edema Gastrointestinal (Abdomen): normal bowel sounds, soft, nontender, no hepatosplenomegaly Skin: + pallor Psychiatric: A+Ox3, euthymic affect Results & Data ([facility]) Vital Signs (Past 12 Hours) Vital Signs Temp Pulse Pulse Resp BP Pulse Ox 11/10/19 11:42 36.7 C 73 20 99/65 L 98 11/10/19 11:07 71 18 99 11/10/19 07:48 36.5 C 81 20 107/72 100 11/10/19 07:07 86 11/10/19 07:03 76 18 98 11/10/19 04:05 36.6 C 80 18 93/58 L 98 Laboratory Results Laboratory Results - last 24 hr 11/10/19 11/10/19 11/10/19 06:14 06:14 13:17 WBC 8.07 RBC 3.34 L Hgb 9.3 L 9.3 L Hct 28.5 L 28.8 L MCV 85.3 MCH 27.8 MCHC 32.6 RDW Std Deviation 53.5 H RDW Coeff of Vanessa 17.3 H Plt Count 325 MPV 9.9 Sodium 136 Potassium 3.7 Chloride 106 Carbon Dioxide 24 Anion Gap 6.0 BUN 17 Creatinine 1.21 H Est Cr Clr Drug Dosing 33.6 Est GFR ( Amer) 50.0 Est GFR (Non-Af Amer) 43.1 BUN/Creatinine Ratio 13.9 Glucose 113 H Calcium 8.5 Iron Transferrin Transferrin % Sat Ferritin Total Bilirubin 0.4 AST 31 ALT 22 Alkaline Phosphatase 122 H Total Protein 6.7 Albumin 3.0 L Globulin 3.7 Albumin/Globulin Ratio 0.8 L Vitamin B12 Folate Specimen Hemolysis 11/10/19 11/10/19 13:17 13:17 WBC RBC Hgb Hct MCV MCH MCHC RDW Std Deviation RDW Coeff of Vanessa Plt Count MPV Sodium Potassium Chloride Carbon Dioxide Anion Gap BUN Creatinine Est Cr Clr Drug Dosing Est GFR ( Amer) Est GFR (Non-Af Amer) BUN/Creatinine Ratio Glucose Calcium Iron 15 L Transferrin 296 Transferrin % Sat 4 L Ferritin 16.2 Total Bilirubin AST ALT Alkaline Phosphatase Total Protein Albumin Globulin Albumin/Globulin Ratio Vitamin B12 351 Folate > 24.00 Specimen Hemolysis PG Care Time/CCT Total # of Minutes Spent Total Time Spent with Patient: Total time spent is greater than 50% in coordination of care (as documented) at patient's floor/unit and/or counseling patient: Coding Level of Care Code None Diagnoses Acute bronchitis J20.8 Bronchitis organism: other organism Anemia D64.9 Anemia type: unspecified type Tobacco abuse Z72.0 Weakness R53.1 CAD (coronary artery disease) I25.10 Associated angina: without angina Coronary Disease-Associated Artery/Lesion type: nez perce artery [place] vs. transplanted heart: nez perce heart ST elevation (STEMI) myocardial infarction I21.3 Involved coronary artery: unspecified coronary artery Cardiomyopathy, ischemic I25.5 S/P coronary artery stent placement Z95.5 S/P AAA repair Z98.890; Z86.79 HTN (hypertension) I10 Hypertension type: essential hypertension Chronic kidney disease, stage III (moderate) N18.3 (1) CAD (coronary artery disease) Associated angina: without angina Coronary Disease-Associated Artery/Lesion type: [place]z [place] artery [place] vs. transplanted heart: nez perce heart Qualified Code(s): I25.10 - Atherosclerotic heart disease of nez [place] coronary artery without angina pectoris (2) Anemia Anemia type: unspecified type Qualified Code(s): D64.9 - Anemia, unspecified (3) ST elevation (STEMI) myocardial infarction Involved coronary artery: unspecified coronary artery Qualified Code(s): I21.3 - ST elevation (STEMI) myocardial infarction of unspecified site (4) HTN (hypertension) Hypertension type: essential hypertension Qualified Code(s): I10 - Essential (primary) hypertension (5) Acute bronchitis Bronchitis organism: other organism Qualified Code(s): J20.8 - Acute bronchitis due to other specified organisms
[2019-11-10 13:31] LABS: Hematocrit (blood only) 28.8 % (37-47); Hemoglobin 9.3 g/dL (12.0-16.0)
[2019-11-10 13:57] LABS: Folate (Folic Acid) > 24.00 ng/ml (>5.38); Vitamin B12 351 pg/ml (211-911)
[2019-11-10 14:14] LABS: Ferritin 16.2 ng/ml (8-388)
[2019-11-10 16:03] VITALS: BP 118/78; TEMP 97.9; O2SAT 99
[2019-11-10 16:09] VITALS: PULSE 82
--- NOTE | 2019-11-10 16:19 | Nuclear Medicine Report ---
NM GI bleeding CLINICAL HISTORY: 79 years-old Female presenting with GI bleed, uncertain source. TECHNIQUE: Following the IV administration of 26 mCi of technetium 99m UltraTag labeled red blood colleen ls, nuclear bleeding scan was performed. Anterior flow images were obtained every 2 seconds for a tot al 48 seconds. Anterior static images were obtained every 5 minutes for a total of 60 minutes. COMPARISON: CTA of the abdomen and pelvis from 06/01/2015. FINDINGS: Initial angiographic flow images demonstrate tortuosity of the abdominal aorta likely relating to the underlying atherosclerotic disease and potentially persistent abdominal aortic aneurysm. Normal radi otracer distribution within the venous vasculature as well as the liver and spleen. There is suspecte d radiotracer within the small bowel mesentery reflecting blood flow, which appears fairly stable thr oughout all phases. No focal radiotracer avidity confidently demonstrating peristaltic movement. Some gross macroscopic motion is also noted to be slightly degrading image quality. IMPRESSION: No evidence of gastrointestinal bleed. ACT 112: Negative or not required by law. Electronically signed by: Shan Almazan M.D. 11/10/2019 4:17 PM
--- NOTE | 2019-11-10 18:02 | Discharge Summary ---
Date of Service date of admission - November 09, 2019 date of discharge - November 10, 2019 Admission HPI Per Admitting Provider This is a 79 yo F with PMHx of anemia, GI bleed with chronic bleeding polyp, CAD, NSTEMI s/p 2 NARCISO placed on 07/17/19 and was on dual antiplatelet therapy with Brilinta and asa, cardiomyopathy, HTN, CKD stg III, tobacco use and hypothyroidism who presents with weakness and heme + stools. Her hgb is 10.2. Pt had last colonoscopy on by Dr Tran here, with multiple findings including polyps, diverticula and large internal and external hemorrhoids. At that time it was thought that her anemia was secondary to diverticulosis although there was no active bleeding identified at that time. She was told to continue Brilinta only upon discharged in early September to home. Patient notes that she has been feeling worse, increased weakness, cough, sputum production, white expectorant, and difficulty sleeping flat on her back for ~10 days. She reports that she has been unable to climb a flight of stairs without becoming short of breath. She has been smoking for her entire life, upwards of 2 PPD, currently only smokes 5 cigarettes/day, and her smokes at home inside her house. She does not use O2 at baseline, inhalers or nebulizers. She does exercise routinely, but has not been able to recently due to increased ANDRADE and fatigue. She denies any increased swelling in her feet or ankles. She denies fever, sweats, chills or sick contacts and has not traveled recently. Patient notes that she has not particularly been looking for any blood with BMs, but has not noticed any BRBPR, blood streaking, or hematochezia. She has been told that she looks more pale recently. Her hemmocult here in the ER is positive, but she has a hx of internal and external hemorrhoids, as well as diverticular disease found during last hospitalization. Patient has been taking her medications as prescribed including Brilinta and blood pressure medications, however missed all this morning. She has been tolerating oral intake without difficulty. She denies any other acute complaints. Principal Diagnosis acute bronchitis; concern for underlying COPD Discharge Exam Constitutional average body habitus and + frail appearing; no acute distress and no altered mental status ENMT external ear and nose normal, oropharynx normal Respiratory + cough; no respiratory distress Auscultation: + wheezes Cardiovascular Rate/Rhythm: regular rate and regular rhythm Heart Sounds: normal S1 and normal S2; no murmur Vessels: posterior tibial pulses present and dorsalis pedis pulses present; no JVD Extremities: no edema Gastrointestinal (Abdomen) normal bowel sounds, soft, nontender, no hepatosplenomegaly Skin + pallor Psychiatric A+Ox3, euthymic affect Discharge Data Allergies Allergy/AdvReac Type Severity Reaction Status Date / Time No Known Allergies Allergy Verified 11/09/19 08:43 Consultations [facility] Gastroenterology Ordered Studies CT angio chest PE protocol - IMPRESSION: 1. No evidence of pulmonary embolus. 2. Focal calcified atherosclerotic plaque results in moderate stenosis of the proximal descending thoracic aorta (50-70% stenosis). 3. Basilar predominant subpleural reticulation may suggest underlying interstitial lung disease or fibrosis. 4. Mild bronchial wall thickening suggest bronchitis. Bleeding scan - no evidence of active GI bleeding Hospital Course (1) Acute bronchitis: Treated with nebs, anti-tussives, doxycycline; steroids were deferred. Counseled to quit smoking. She will finish a course of doxycycline post-discharge. Combivent and tessalon were prescribed at discharge as well. (2) Anemia: Colonoscopy report noted from 09/03/19 that the prep was fair but no active bleeding was found at that time. EGD was also done on 09/01/19 and noted that gastritis and erythematous duodenopathy were found but no active bleed. Heme+ stool was found at time of admission but patient denied any melena or BRBPR. Seen by [facility] GI - bleeding scan advised. Bleeding scan did NOT show active bleeding. Serial H/H's remained mildly low but stable. Hemoglobin at discharge was 9.3. Fe studies were c/w severe Fe def anemia. B12 level was low-normal. Oral B12 and iron were recommended at discharge. She will need a repeat CBC in several days post-d/c to ensure stability. (3) Tobacco abuse: counseled to quit (4) Weakness: likely due to respiratory illness/bronchitis in setting of anemia also patient reports very poor sleep x 2 months - we discussed outpatient sleep study (5) CAD (coronary artery disease): no ischemic symptoms during her stay (6) ST elevation (STEMI) myocardial infarction: history of (7) Cardiomyopathy, ischemic: mild systolic CHF, EF 40-45% compensated on exam during the hospital stay cont BB cont LAZARO (8) S/P coronary artery stent placement: NSTEMI in Jul 2019 s/p 2 NARCISO stent, follows with Dr. Rivera as outpt. cont BB cont LAZARO cont brilinta cont statin (9) S/P AAA repair: History of such in 2014, underwent procedure in [place] stenosis of descending aorta noted on CT chest - continue statin, antiplatelet agent, etc. need for vascular referral and surveillance? (10) HTN (hypertension): continue usual outpatient meds for such controlled while here (11) Chronic kidney disease, stage III (moderate): creatinine stable during the visit baseline about 1.1 Total Time Total Time Spent Total Time Spent (In Minutes): 35 Total Time Includes: Examination of the Patient, Discharge Planning and Medication Reconciliation Discharge Plan Discharge Items Patient Disposition: Home - Self-Care Reason For Visit: Weakness, question of pneumonia Discharge Diagnosis: 1. weakness - likely due to respiratory illness (bronchitis) in the setting of severe iron deficiency anemia 2. respiratory illness - likely bronchitis (CAT scan of lungs did not show discrete pneumonia) 3. blood in stool - although your stool had traces of blood your bleeding scan did NOT show active bleeding. Your hemoglobin level was 9.3 at time of discharge Activity: As commented below Activity Comment: gradually increase your activity over the next 4-5 days Non-emergency contact: Primary Care Provider Call non-emergency contact if: you have any medication questions, your symptoms worsen and you have a fever Follow-up/Referrals: Cedric Tran MD [Physician] - (see Dr Tran or his physician phys assistant within 1-2 weeks ) Courtney Naik MD [Primary Care Provider] - (see Dr Naik within 5 days ) Diet: Heart Healthy Add Attending Provider Instructions: You were treated for the above problems listed in the "discharge diagnoses" section above. Your weakness was likely due to a respiratory infection/illness in the setting of anemia. Your anemia appears to be due to severe iron deficiency anemia. Your vitamin B12 level is also on the low end of normal which can contribute to anemia. Although your stool had traces of blood in it on 11/09/2019 a "bleeding scan" done on 11/10/2019 did NOT show evidence of active gastrointestinal bleeding. Your hemoglobin level was checked on the morning of 11/09 and in the afternoon and both values were 9.3. Recommendations -- 1. In the event your bronchitis is due to a bacterial infection please take 6 more days of doxycycline antibiotic. Start this tonight. Note that on occasion doxycycline can cause heartburn. 2. For cough/congestion/wheezing - * tessalon pearles, 100mg every 8 hours as needed for cough * combivent inhaler 1 puff every 6 hours as needed for cough/wheezing * lvvp-jme-znsfnrq mucinex up to 1200mg twice daily as needed for coug h/congestion 3. For severe iron deficiency - * take bigc-qjo-yjhxoia iron (ferrous sulfate) 325mg once to twice daily * most individuals who take iron experience constipation; the iron can also make your stools look dark; these side effects are common * if you cannot tolerate the oral iron please speak to Dr Naik about receiving IV iron as an outpatient * if you tolerate oral iron plan to take it for 3-4 months 4. To help protect your stomach against irritation/GI bleeding take - * pantoprazole 40mg once daily every morning 5. For low-normal B12 level - * take llwq-fyu-vmawbgx vitamin B12 1000mcg (1mg) once daily for 12 months 6. Please speak to Dr Naik about obtaining a sleep study as an outpatient. Follow-up - * see Dr Naik within 5 days * see Dr Tran, [facility] GI, within 1-2 weeks * you will need a repeat CBC (Blood count) within 5 days to ensure no GI bleeding; Dr Naik can check this for you Return to [facility] if - * you have fevers over 100.5 degrees * you have worsening shortness of breath * you have chest pains * you have abdominal pains * you see dark, tarry stool or you have bright red blood in your stool * any other concerns Pending Studies at Discharge: No Stand-Alone Forms: [facility], Smoking Cessation Medications and DC Order Prescriptions: New benzonatate [Tessalon Perles] 100 mg Capsule 100 mg PO TID PRN (Reason: cough) Qty: 30 RF: 0 Combivent Respimat 20-100 mcg/actuation mist 1 puffs INH Q6H PRN (Reason: cough, wheeze, shortness of breath ) Qty: 4 RF: 0 pantoprazole [Protonix] 40 mg tablet,delayed release (DR/EC) 40 mg PO QAM Qty: 30 RF: 5 ferrous sulfate 325 mg (65 mg iron) tablet 325 mg PO BID Qty: 60 RF: 2 cyanocobalamin (vitamin B-12) 1,000 mcg capsule 1,000 mcg PO DAILY Qty: 30 RF: 11 Continued cholecalciferol (vitamin D3) 2,000 unit tablet 4,000 units PO HS RF: 0 hydralazine 10 mg tablet 10 mg PO TID RF: 0 levothyroxine 50 mcg tablet 50 mcg PO Q OTHER DAY RF: 0 levothyroxine 25 mcg tablet 25 mcg PO Q OTHER DAY RF: 0 Brilinta 90 mg Tablet 90 mg PO BID 30 Days Qty: 60 RF: 3 atorvastatin 40 mg Tablet 80 mg PO QAM 30 Days Qty: 60 RF: 3 lisinopril 2.5 mg Tablet 2.5 mg PO QAM 30 Days Qty: 30 RF: 3 metoprolol succinate [Toprol XL] 25 mg tablet extended release 24 hr 12.5 mg PO QAM RF: 0 Discharge Orders: Discharge Order (Routine); Ordered 11/10/19 Ordered By: Jeremiah Little Admission Data Admit Date/Time: 11/09/19 11:56 Attending Provider: Jeremiah Little Admit Provider: Amara Bain Primary Care Provider: Courtney Naik Other Providers: Amara Bain ; Cedric Tran Other Interventions: Discharge Summary Assessment (RN) Last Done: 11/10/19 17:41 DC Date/Time DO NOT enter until pt leaves facility: 11/10/19 18:10 Coding Level of Care Code D/C Day Management >30 mins Diagnoses Acute bronchitis J20.8 Bronchitis organism: other organism Anemia D64.9 Anemia type: unspecified type Tobacco abuse Z72.0 Weakness R53.1 CAD (coronary artery disease) I25.10 Coronary Disease-Associated Artery/Lesion type: [place] artery [place] vs. transplanted heart: tribe heart Associated angina: without angina ST elevation (STEMI) myocardial infarction I21.3 Involved coronary artery: unspecified coronary artery Cardiomyopathy, ischemic I25.5 S/P coronary artery stent placement Z95.5 S/P AAA repair Z98.890; Z86.79 HTN (hypertension) I10 Hypertension type: essential hypertension Chronic kidney disease, stage III (moderate) N18.3
[2019-11-10] MEDS ORDERED: DOXYCYCLINE HYCLATE 100 MG CAP PO SCH (21:00)
--- NOTE | 2019-11-19 09:51 | Coding Query ---
A supporting diagnosis is required for the test/procedure performed on this patient in order for us to be reimbursed by the patient's insurance. Please provide a supporting diagnosis for the following test/procedure listed below next to the test name along with your signature. *If there is no additional diagnosis for this patient that would support the following test/procedure please document that below next to the test/procedure. Test(s)/Procedure(s) that require a supporting diagnosis: Vitamin B12 DIAGNOSIS: anemia; fatigue Folic Acid DIAGNOSIS:____anemia; fatigue Provider Signature: Date: Thank you Shila Billings Health Information Management Once completed, please kindly fax back to [phone] For questions please call [phone] [place]
== END 2019-11-10 18:10 | disposition home or self-care (01) | DRG 194 ==
LOC: ED 08:07 → INTOOBSV 11:56 → SUATTDRO 11:56 → 2N 11:56

== ENCOUNTER 2020-02-26 21:55 | Inpatient (IN) ==
[2020-02-26] MEDS ORDERED: ALBUTEROL HFA 8 GM INHALER INH ONE (22:04)
[2020-02-26] MEDS ORDERED: methylPREDNISolone 125 MG/2 ML VIAL IV STA (22:04)
[2020-02-26] MEDS ORDERED: MAGNESIUM SULFATE / D5W 1 GM/100 ML BAG IV ONE (22:04)
[2020-02-26 22:29] LABS: Basophils # (auto) 0.02 K/uL (0-0.2); Basophils % (auto) 0.2 %; Eosinophils # (auto) 0.04 K/uL (0-0.5); Eosinophils % (auto) 0.5 %; Hematocrit (blood only) 36.1 % (37-47); Hemoglobin 12.4 g/dL (12.0-16.0); Immature Granulocytes # (auto) 0.02 K/uL (0.00-0.02); Immature Granulocytes % (auto) 0.2 %; Lymphocytes % (auto) 11.8 %; Mean Corpuscular Hemoglobin 31.9 pg (25-34); Mean Corpuscular Hgb Conc 34.3 g/dL (32-36); Mean Corpuscular Volume 92.8 fL (80-100); Mean Platelet Volume 10.6 fL (7.4-10.4); Monocytes # (auto) 0.49 K/uL (0.11-0.59); Monocytes % (auto) 5.8 %; Neutrophils # (auto) 6.88 K/uL (1.4-6.5); Neutrophils % (auto) 81.5 %; Platelet Count 281 K/uL (130-400); RDW Coefficient of Variation 16.5 % (11.5-14.5); RDW Standard Deviation 55.5 fL (36.4-46.3); Red Blood Count 3.89 M/uL (4.2-5.4); White Blood Count 8.45 K/uL (4.8-10.8)
[2020-02-26 22:39] LABS: INR 0.9 (0.9-1.1); Partial Thromboplastin Ratio 1.1; Partial Thromboplastin Time 29.7 Seconds (21.0-31.0); Prothrombin Time 9.9 Seconds (9.0-12.0)
[2020-02-26 22:45] LABS: Alanine Aminotransferase 28 U/L (12-78); Albumin Level 3.1 gm/dl (3.4-5.0); Aspartate Aminotransferase 26 U/L (15-37); Blood Urea Nitrogen 10 mg/dl (7-18); C Reactive Protein 1.73 mg/dl (0-0.29); Calcium 8.8 mg/dl (8.5-10.1); Carbon Dioxide 18 mmol/L (21-32); Chloride 107 mmol/L (98-107); Est GFR (African American) 67.8; Est GFR (Non-African American) 58.5; Glucose 151 mg/dl (70-99); Lipase 237 U/L (73-393); Potassium 3.6 mmol/L (3.5-5.1); Sodium 136 mmol/L (136-145)
[2020-02-26] MEDS ORDERED: PIPERACILL/TAZOBAC CONSULT ACTIVE PRN (22:46)
[2020-02-26] MEDS ORDERED: LEVOFLOXACIN/D5W 750 MG/150 ML BAG IV STA (22:46)
[2020-02-26] MEDS ORDERED: PIPERACILLIN/TAZOBACTAM 4.5 GM/120 ML BAG IV ONE (22:46)
[2020-02-26 23:01] LABS: Albumin Globulin Ratio 0.7 (0.9-2); Alkaline Phosphatase 186 U/L (45-117); Bilirubin,Total 0.4 mg/dl (0.2-1); Ferritin 78.6 ng/ml (8-388); Globulin 4.1 gm/dl (2.5-4.0); NT Pro B Type Natriuretic Pept 10961 pg/ml (0-1800); Total Protein 7.2 gm/dl (6.4-8.2); Troponin I 0.068 ng/ml (0-0.045)
[2020-02-26] MEDS ORDERED: FUROSEMIDE 40 MG/4 ML VIAL IV STA (23:02)
--- NOTE | 2020-02-26 23:26 | Emergency Department Note ---
History of Present Illness General Chief complaint: Shortness of Breath/Dyspnea Time Seen by Provider: 02/26/20 21:59 Home Medications Home Medications Medication Instructions Recorded Confirmed Type cholecalciferol (vitamin D3) 50 4,000 units PO HS tab 05/26/19 02/26/20 History mcg (2,000 unit) tablet levothyroxine 25 mcg PO Q OTHER DAY 07/17/19 02/26/20 History levothyroxine 50 mcg PO Q OTHER DAY 07/17/19 02/26/20 History Brilinta 90 mg PO BID 30 Days #60 tab 07/19/19 02/26/20 Rx atorvastatin 80 mg PO QAM 30 Days #60 tab 07/19/19 02/26/20 Rx lisinopril 2.5 mg PO QAM 30 Days #30 tab 07/19/19 02/26/20 Rx hydralazine 10 mg tablet 10 mg PO TID tab 09/24/19 02/26/20 History metoprolol succinate [Toprol XL] 12.5 mg PO QAM 11/09/19 02/26/20 History cyanocobalamin (vitamin B-12) 1,000 mcg PO DAILY #30 cap 11/10/19 02/26/20 Rx ferrous sulfate 325 mg PO BID #60 tab 11/10/19 02/26/20 Rx ipratropium-albuterol [Combivent 1 puffs INH Q6H PRN #4 gm 11/10/19 02/26/20 Rx Respimat] pantoprazole [Protonix] 40 mg PO QAM #30 tab 11/10/19 02/26/20 Rx fluticasone propion-salmeterol 1 inh INHALATION BID 02/26/20 02/26/20 History [Wixela Inhub] Allergies Allergy/AdvReac Type Severity Reaction Status Date / Time No Known Allergies Allergy Verified 02/26/20 23:42 Past Med/Surg History Medical History (Updated 02/27/20 @ 22:37 by Sampson Peacock MD) CAD (coronary artery disease) HTN (hypertension) Surgical History (Updated 11/11/19 @ 00:03 by Hal Adame) S/P AAA repair Social History Preferred Language: Maltese Communication Ability: Effective 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 Social Welfare Required: No Beliefs That Will Affect Care: None marital status: Current Living Situation: Spouse Other Information That Helps Us Care for You: No Feels Safe at Home: Yes Safety Concerns: Feels Safe At This Time Smoking Status: Current every day smoker Tobacco Type: cigarettes ; Cigarettes Per Day: 5 ; Do You Dip or Chew Tobacco: No ; Second Hand Exposure: Yes ; Tobacco Cessation Education Requested by Patient: No Hx Alcohol Use: Yes Alcohol type: wine Hx Substance Use: No Review of Systems A total of 10 systems reviewed and were otherwise negative Physical Exam Vital Signs Vital Signs - 24 hr 02/26/20 22:35 02/26/20 23:00 02/26/20 23:30 Pulse Rate 105 H 88 Pulse Rate from SpO2 Sensor 105 H 88 Respiratory Rate 24 23 Blood Pressure Blood Pressure Mean Pulse Oximetry 94 95 96 Oxygen Delivery Method Room Air 02/26/20 23:49 02/27/20 00:00 02/27/20 00:01 Pulse Rate 89 96 H 96 H Pulse Rate from SpO2 Sensor 89 95 H 96 H Respiratory Rate 30 H 22 28 H Blood Pressure 157/76 H 171/123 H Blood Pressure Mean 108 143 Pulse Oximetry 95 98 98 Oxygen Delivery Method 02/27/20 00:30 Pulse Rate 87 Pulse Rate from SpO2 Sensor 87 Respiratory Rate 22 Blood Pressure 178/98 H Blood Pressure Mean 108 Pulse Oximetry 99 Oxygen Delivery Method VITAL SIGNS - Vital signs and nursing notes were reviewed. GENERAL - 79-year-old female appearing stated age who is in no acute distress. Communicates well with provider and answers questions appropriately. SKIN - Without rashes. HEAD - NC/AT. EYES - PERRL with EOMI bilaterally. Sclera anicteric. Palpebral conjunctiva pink and moist with no injection noted. EARS - No deformities of external structures noted on gross examination bilaterally. No pain elicited with palpation of the tragus bilaterally. External auditory canals without discharge or otorrhea. Tympanic membranes pearly bautista without retraction or bulging. No fluid or purulent material visualized behind the TM. Handle of malleus, umbo, cone of light, pars tensa/flaccid all easily visualized. NOSE - Midline and without cyanosis. No epistaxis or purulent drainage noted. Septum midline without deviation or septal hematoma noted. MOUTH/OROPHARYNX - Without perioral cyanosis. Buccal mucosa pink and moist and without leukoplakia. Tongue midline with equal elevation of palate bilaterally. No tonsillar hypertrophy, erythema, or exudates noted. dentition noted. NECK - Neck with FROM. Supple to palpation. lymphadenopathy noted. No nuchal rigidity. LUNGS - Chest wall symmetric without accessory muscle use, intercostals retractions, or central cyanosis. Normal vesicular breath sounds CTA B/L. No wheezes, rales, or rhonchi appreciated. CARDIAC - RRR with S1/S2. No murmur, rubs, or gallops appreciated. ABDOMEN - Abdominal contour without pulsations or visible masses. BS normoactive all four quadrants. No tenderness, palpable masses, hepatosplenomegaly, or ascites noted. EXTREMITIES - No clubbing or peripheral cyanosis. No pretibial edema present. +3/5 radial, posterior tibial, and dorsalis pedis pulses palpated throughout. +5/5 strength noted in UE/LE bilaterally. NEUROLOGIC - Cranial nerves II through XII grossly intact. Sensory intact to light touch throughout. Patellar reflexes +2/4. PSYCH - A&Ox3 and cooperates fully with examiner. Pt is very pleasant and interacts well with examiner. Course Administered Medications Atorvastatin Calcium (Lipitor) 80 mg PO QAM [facility] Stop: 03/28/20 08:59 Last Admin: 02/27/20 14:03 Dose: 80 mg Documented by: [id number] Cyanocobalamin (Vitamin B-12) 1,000 mcg PO DAILY [facility] Stop: 03/28/20 08:59 Last Admin: 02/27/20 07:50 Dose: 1,000 mcg Documented by: [id number] Ferrous Sulfate (Feosol) 325 mg PO BID [facility] Stop: 03/28/20 08:59 Last Admin: 02/27/20 20:05 Dose: 325 mg Documented by: [id number] Admin: 02/27/20 07:50 Dose: 325 mg Documented by: [id number] Fluticasone/Vilanterol (Breo Ellipta 100/25 Mcg Inh) 1 puffs INH DAILY [facility] Stop: 03/28/20 08:59 Last Admin: 02/27/20 07:52 Dose: 1 puffs Documented by: [id number] Hydralazine HCl (Apresoline) 10 mg PO TID BRIJESH Stop: 03/28/20 08:59 Last Admin: 02/27/20 20:05 Dose: 10 mg Documented by: [id number] Admin: 02/27/20 14:03 Dose: 10 mg Documented by: [id number] Admin: 02/27/20 07:51 Dose: 10 mg Documented by: [id number] Hydroxyzine HCl (Vistaril) 25 mg PO HS PRN PRN Reason: Insomnia Stop: 03/28/20 02:39 Last Admin: 02/27/20 03:45 Dose: 25 mg Documented by: [id number] Levothyroxine Sodium (Synthroid) 25 mcg PO Q2D@0630 [facility] Stop: 03/28/20 06:29 Last Admin: 02/27/20 06:13 Dose: 25 mcg Documented by: [id number] [facility] [place]: 03/28/20 08:59 Last Admin: 02/27/20 07:50 Dose: 2.5 mg Documented by: [id number] Metoprolol Succinate ([facility]rol Xl) [facility] Stop: 03/28/20 08:59 Last Admin: 02/27/20 07:48 Dose: 12.5 mg Documented by: [id number] Pantoprazole Sodium (Protonix) [facility] Stop: 03/28/20 08:59 Last Admin: 02/27/20 07:51 Dose: 40 mg Documented by: [id number] Ticagrelor (Brilinta) 90 mg PO BID [facility] Stop: 03/28/20 08:59 Last Admin: 02/27/20 20:05 Dose: 90 mg Documented by: [id number] Admin: 02/27/20 07:51 Dose: 90 mg Documented by: [id number] Vitamin D (Vitamin D3) 4,000 units PO HS [facility] Stop: 03/28/20 20:59 Last Admin: 02/27/20 20:05 Dose: 4,000 units Documented by: [id number] Discontinued Medications Albuterol (Ventolin Hfa) 2 puffs INH NOW ONE Stop: 02/26/20 22:05 Last Admin: 02/26/20 23:41 Dose: 2 puffs Documented by: [id number] Furosemide (Lasix) 40 mg IV NOW STA Stop: 02/26/20 23:03 Last Admin: 02/26/20 23:46 Dose: 40 mg Documented by: [id number] Magnesium Sulfate/Dextrose (Magnesium Sulfate / D5w) 1 gm in 100 mls @ 50 mls/hr IV ONE ONE Stop: 02/27/20 00:03 Last Infusion: 02/27/20 05:03 Dose: 0 mls/hr Documented by: [id number] Admin: 02/27/20 02:58 Dose: 50 mls/hr Documented by: [id number] Piperacillin Sod/Tazobactam Sod (Zosyn) 4.5 gm in 120 mls @ 240 mls/hr IV NOW ONE Stop: 02/26/20 23:15 Last Infusion: 02/27/20 00:17 Dose: 0 mls/hr Documented by: [id number] Admin: 02/26/20 23:42 Dose: 240 mls/hr Documented by: [id number] Levofloxacin/Dextrose (Levaquin/D5w) 750 mg in 150 mls @ 100 mls/hr IV NOW STA Stop: 02/27/20 00:15 Last Infusion: 02/27/20 02:42 Dose: 0 mls/hr Documented by: [id number] Admin: 02/27/20 00:36 Dose: 100 mls/hr Documented by: [id number] Furosemide 40 mg/ Syringe 4 mls @ 4 mls/min IV 0800 ONE Stop: 02/27/20 08:01 Last Admin: 02/27/20 09:20 Dose: 4 mls/min Documented by: [id number] Methylprednisolone (Solumedrol) 60 mg IV NOW STA Stop: 02/26/20 22:05 Last Admin: 02/26/20 23:41 Dose: 60 mg Documented by: [id number] Medical Decision Making Differential Diagnosis Reactive airway disease, pneumonia, pneumothorax, COPD, CHF, infections, cardiac ischemia, pulmonary embolism, musculoskeletal, gastrointestinal, as well as other pathologies. Medical Records Attestation: I reviewed the patient's medical records. Home Medications Current Medication List: was personally reviewed by me Laboratory Data Attestation: I reviewed the patient's lab results. Result diagrams: 02/27/20 06:20 02/27/20 06:20 Lab Results 02/26/20 02/26/20 02/26/20 Range/Units 22:15 22:15 22:15 WBC 8.45 (4.8-10.8) K/uL RBC 3.89 L (4.2-5.4) M/uL Hgb 12.4 (12.0-16.0) g/dL Hct 36.1 L (37-47) % MCV 92.8 (80-100) fL MCH 31.9 (25-34) pg MCHC 34.3 (32-36) g/dL RDW Std Deviation 55.5 H (36.4-46.3) fL RDW Coeff of Vanessa 16.5 H (11.5-14.5) % Plt Count 281 (130-400) K/uL MPV 10.6 H (7.4-10.4) fL Immature Gran % (Auto) 0.2 % Neut % (Auto) 81.5 % Lymph % (Auto) 11.8 % Pope % (Auto) 5.8 % Eos % (Auto) 0.5 % Baso % (Auto) 0.2 % Neut # (Auto) 6.88 H (1.4-6.5) K/uL Lymph # (Auto) 1.00 L (1.2-3.4) K/uL Pope # (Auto) 0.49 (0.11-0.59) K/uL Eos # (Auto) 0.04 (0-0.5) K/uL Baso # (Auto) 0.02 (0-0.2) K/uL Immature Gran # (Auto) 0.02 (0.00-0.02) K/uL ESR 58 H (0-21) mm/hr PT 9.9 (9.0-12.0) Seconds INR 0.9 (0.9-1.1) APTT 29.7 (21.0-31.0) Seconds PTT Ratio 1.1 Sodium (136-145) mmol/L Potassium (3.5-5.1) mmol/L Chloride (98-107) mmol/L Carbon Dioxide (21-32) mmol/L Anion Gap (3-11) BUN (7-18) mg/dl Creatinine (0.6-1.2) mg/dl Est Cr Clr Drug Dosing Est GFR ( Amer) Est GFR (Non-Af Amer) BUN/Creatinine Ratio (10-20) Glucose (70-99) mg/dl Calcium (8.5-10.1) mg/dl Ferritin (8-388) ng/ml Total Bilirubin (0.2-1) mg/dl AST (15-37) U/L ALT (12-78) U/L Alkaline Phosphatase (45-117) U/L Lactate Dehydrogenase (84-246) U/L Troponin I (0-0.045) ng/ml C-Reactive Protein (0-0.29) mg/dl NT-Pro-B Natriuret Pep (0-1800) pg/ml Total Protein (6.4-8.2) gm/dl Albumin (3.4-5.0) gm/dl Globulin (2.5-4.0) gm/dl Albumin/Globulin Ratio (0.9-2) Lipase (73-393) U/L COVID-19 PCR (Negative) Influenza Type A (PCR) (Neg) Influenza Type B (PCR) (Neg) SARS-CoV-2 RNA (RT-PCR) 02/26/20 02/26/20 02/26/20 Range/Units 22:15 22:15 23:58 WBC (4.8-10.8) K/uL RBC (4.2-5.4) M/uL Hgb (12.0-16.0) g/dL Hct (37-47) % MCV (80-100) fL MCH (25-34) pg MCHC (32-36) g/dL RDW Std Deviation (36.4-46.3) fL RDW Coeff of Vanessa (11.5-14.5) % Plt Count (130-400) K/uL MPV (7.4-10.4) fL Immature Gran % (Auto) % Neut % (Auto) % Lymph % (Auto) % Pope % (Auto) % Eos % (Auto) % Baso % (Auto) % Neut # (Auto) (1.4-6.5) K/uL Lymph # (Auto) (1.2-3.4) K/uL Pope # (Auto) (0.11-0.59) K/uL Eos # (Auto) (0-0.5) K/uL Baso # (Auto) (0-0.2) K/uL Immature Gran # (Auto) (0.00-0.02) K/uL ESR (0-21) mm/hr PT (9.0-12.0) Seconds INR (0.9-1.1) APTT (21.0-31.0) Seconds PTT Ratio Sodium 136 (136-145) mmol/L Potassium 3.6 (3.5-5.1) mmol/L Chloride 107 (98-107) mmol/L Carbon Dioxide 18 L (21-32) mmol/L Anion Gap 11.0 (3-11) BUN 10 (7-18) mg/dl Creatinine 0.94 (0.6-1.2) mg/dl Est Cr Clr Drug Dosing Not Reportable Est GFR ( Amer) 67.8 Est GFR (Non-Af Amer) 58.5 BUN/Creatinine Ratio 11.0 (10-20) Glucose 151 H (70-99) mg/dl Calcium 8.8 (8.5-10.1) mg/dl Ferritin 78.6 (8-388) ng/ml Total Bilirubin 0.4 (0.2-1) mg/dl AST 26 (15-37) U/L ALT 28 (12-78) U/L Alkaline Phosphatase 186 H (45-117) U/L Lactate Dehydrogenase 219 (84-246) U/L Troponin I 0.068 H* (0-0.045) ng/ml C-Reactive Protein 1.73 H (0-0.29) mg/dl NT-Pro-B Natriuret Pep 00500 H (0-1800) pg/ml Total Protein 7.2 (6.4-8.2) gm/dl Albumin 3.1 L (3.4-5.0) gm/dl Globulin 4.1 H (2.5-4.0) gm/dl Albumin/Globulin Ratio 0.7 L (0.9-2) Lipase 237 (73-393) U/L COVID-19 PCR (Negative) Influenza Type A (PCR) Neg for Influ A (Neg) Influenza Type B (PCR) Neg for Influ B (Neg) SARS-CoV-2 RNA (RT-PCR) 02/26/20 02/26/20 Range/Units 23:58 23:58 WBC (4.8-10.8) K/uL RBC (4.2-5.4) M/uL Hgb (12.0-16.0) g/dL Hct (37-47) % MCV (80-100) fL MCH (25-34) pg MCHC (32-36) g/dL RDW Std Deviation (36.4-46.3) fL RDW Coeff of Vanessa (11.5-14.5) % Plt Count (130-400) K/uL MPV (7.4-10.4) fL Immature Gran % (Auto) % Neut % (Auto) % Lymph % (Auto) % Pope % (Auto) % Eos % (Auto) % Baso % (Auto) % Neut # (Auto) (1.4-6.5) K/uL Lymph # (Auto) (1.2-3.4) K/uL Pope # (Auto) (0.11-0.59) K/uL Eos # (Auto) (0-0.5) K/uL Baso # (Auto) (0-0.2) K/uL Immature Gran # (Auto) (0.00-0.02) K/uL ESR (0-21) mm/hr PT (9.0-12.0) Seconds INR (0.9-1.1) APTT (21.0-31.0) Seconds PTT Ratio Sodium (136-145) mmol/L Potassium (3.5-5.1) mmol/L Chloride (98-107) mmol/L Carbon Dioxide (21-32) mmol/L Anion Gap (3-11) BUN (7-18) mg/dl Creatinine (0.6-1.2) mg/dl Est Cr Clr Drug Dosing Est GFR ( Amer) Est GFR (Non-Af Amer) BUN/Creatinine Ratio (10-20) Glucose (70-99) mg/dl Calcium (8.5-10.1) mg/dl Ferritin (8-388) ng/ml Total Bilirubin (0.2-1) mg/dl AST (15-37) U/L ALT (12-78) U/L Alkaline Phosphatase (45-117) U/L Lactate Dehydrogenase (84-246) U/L Troponin I (0-0.045) ng/ml C-Reactive Protein (0-0.29) mg/dl NT-Pro-B Natriuret Pep (0-1800) pg/ml Total Protein (6.4-8.2) gm/dl Albumin (3.4-5.0) gm/dl Globulin (2.5-4.0) gm/dl Albumin/Globulin Ratio (0.9-2) Lipase (73-393) U/L COVID-19 PCR NEGATIVE (Negative) Influenza Type A (PCR) (Neg) Influenza Type B (PCR) (Neg) SARS-CoV-2 RNA (RT-PCR) Cancelled Imaging Data Attestation: I personally reviewed and interpreted this imaging study as follows: My Impression: 1 view of the chest was interpreted by me shows is concerning for bilateral pneumonia versus pulmonary edema. There is no evidence of pneumothorax. Radiologist's Impression: ECG Data Attestation: I personally reviewed and interpreted this ECG as follows: Indication: + SOB/dyspnea Rate (beats per minute): 96 Rhythm: + normal sinus ECG Intervals/blocks: + Left bundle branch block ECG [place]: + Normal ECG ST segments: no ST depression and no ST elevation Comparison ECG Date: from (11/09/2019) Change: no significant change MDM Narrative This is a 79-year-old female who presents emergency department complaining of shortness of breath. Her chest x-ray is concerning for pneumonia versus congestive heart failure. Her BNP is consistent with congestive heart failure. Patient was given Lasix here in the emergency department and started on broad- spectrum antibiotics. She does have an elevation in her troponin her potassium was also repleted here in the emergency department. I did discuss her case with the hospitalist service who did agree to admit the patient. Patient is in agreement with the treatment plan. Patient was seen and evaluated as above. Review was performed of nursing notes and vital signs. I did review pertinent previous visits and patient history. After obtaining a thorough history and physical examination the above work up was performed. While in the department, I personally reevaluated the patient several times and each time the patient was found to be resting comfortably. The patient was educated upon management, educated upon todays findings/results, educated upon importance of follow up from today's visit, educated upon symptoms in which to return, had questions answered prior to discharge, verbalized understanding, and was discharged home in good condition. An order was placed for continuous cardiac monitoring. The monitor shows a rate of 79 with Normal Sinus rhythm. The patient was evaluated during the global COVID-19 pandemic, and that diagnosis was suspected/considered upon their initial presentation. Their evaluation, treatment and testing was consistent with current guidelines for patients who present with complaints or symptoms that may be related to COVID- 19. Impression & Plan Congestive heart failure, Shortness of breath Discharge Plan Visit Data *Final* Discharge Date/Time: 02/27/20 02:18 Chief Complaint: Shortness of Breath/Dyspnea ED Provider: Sampson Peacock Discharge Problem: Congestive heart failure, Shortness of breath Patient Disposition: Admitted As Inpatient Discharge Instructions Interventions: ED Discharge Assessment Last Done: 02/27/20 02:18 Discharge Problem: Congestive heart failure Qualifiers: Heart failure type: unspecified Heart failure chronicity: unspecified Qualified Code(s): I50.9 - Heart failure, unspecified
--- NOTE | 2020-02-27 00:16 | History & Physical Report ---
Date of Service February 27, 2020 Assessment & Plan (1) Shortness of breath: Concern for CHF over infectious process. Covid-19 assay negative. Has history of ischemic cardiomyopathy, mild systolic CHF with EF of 40-45% -Admit to medical floor with telemetry -Check 2D echo, monitor I/Os, daily weights -O2 as needed -Follow cultures -Continue Combivent, Fluticasone/Salmeterol Present on Admission?: Yes (2) HTN (hypertension): Chronic. Stable -Continue Hydralazine, Lisinopril, Metoprolol -Monitor Present on Admission?: Yes (3) Hypothyroid: Chronic -Continue Synthroid Present on Admission?: Yes (4) CAD (coronary artery disease): Chronic. NSTEMI s/p NARCISO x 2 placed on 07/17/19. Patient follows with Dr. Rivera. Was recently on DAPT with Brillinta and ASA - had GIB and ASA was discontinued. -Continue Brillinta, Metoprolol, Lisinopril, Atorvastatin F/E/N- Heplock, monitor electrolytes, heart healthy diet Ppx - Continue Protonix Code - DNR/DNI Dispo - Admit to med/tele Present on Admission?: Yes Admission and Anticipated Discharge Date Admission Date: 02.27.20 Anticipated date of discharge: 02/28/20 History of Present Illness Chief Complaint: SOB Primary Care Provider: Courtney Naik MD 79yo C female with CAD, HTN presenting with SOB. Reports she had bronchitis in October, never fully recovered. She has been treated with abx, steroids and inhalers since then with no improvement. Continued SOB, acutely worse over the last day. No cough, fevers, chills, nausea, vomiting, abdominal pain, diarrhea Allergies Allergy/AdvReac Type Severity Reaction Status Date / Time No Known Allergies Allergy Verified 02/26/20 23:42 Home Medications Home Medications Medication Instructions Recorded Confirmed Type cholecalciferol (vitamin D3) 50 4,000 units PO HS tab 05/26/19 02/26/20 History mcg (2,000 unit) tablet levothyroxine 25 mcg PO Q OTHER DAY 07/17/19 02/26/20 History levothyroxine 50 mcg PO Q OTHER DAY 07/17/19 02/26/20 History Brilinta 90 mg PO BID 30 Days #60 tab 07/19/19 02/26/20 Rx atorvastatin 80 mg PO QAM 30 Days #60 tab 07/19/19 02/26/20 Rx lisinopril 2.5 mg PO QAM 30 Days #30 tab 07/19/19 02/26/20 Rx hydralazine 10 mg tablet 10 mg PO TID tab 09/24/19 02/26/20 History metoprolol succinate [Toprol XL] 12.5 mg PO QAM 11/09/19 02/26/20 History cyanocobalamin (vitamin B-12) 1,000 mcg PO DAILY #30 cap 11/10/19 02/26/20 Rx ferrous sulfate 325 mg PO BID #60 tab 11/10/19 02/26/20 Rx ipratropium-albuterol [Combivent 1 puffs INH Q6H PRN #4 gm 11/10/19 02/26/20 Rx Respimat] pantoprazole [Protonix] 40 mg PO QAM #30 tab 11/10/19 02/26/20 Rx fluticasone propion-salmeterol 1 inh INHALATION BID 02/26/20 02/26/20 History [Wixela Inhub] Past Med/Surg History Social History Preferred Language: Armenian Communication Ability: Effective 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 Beliefs That Will Affect Care: None marital status: Current Living Situation: Spouse Other Information That Helps Us Care for You: No Feels Safe at Home: Yes Safety Concerns: Feels Safe At This Time Smoking Status: Current every day smoker Tobacco Type: cigarettes ; Cigarettes Per Day: 5 ; Do You Dip or Chew Tobacco: No ; Second Hand Exposure: Yes ; Tobacco Cessation Education Requested by Patient: No Hx Alcohol Use: Yes Alcohol type: wine Hx Substance Use: No Review of Systems Review of Systems: All systems reviewed & are unremarkable except as noted in HPI & below Physical Exam Physical Exam: General: patient resting comfortably, NAD, non-toxic in appearance, AA&O x 4 Skin: warm, dry, intact, no rashes or lesions HEENT: NC/AT, PERRL, EOMI, anicteric sclera, conjunctiva without injection, external ear normal to inspection and nontender, nares patent, moist mucus membranes, dentition intact, no oropharyngeal lesions, neck supple, trachea midline, no LAD, no thyromegaly, no JVD Heart: +S1/S2, regular, no m/r/g Lungs: equal air entry bilaterally, + crackles in bilateral bases Abd: +BS, soft, NT/ND, no masses/organomegaly/ascites Ext: warm, 2+ pulses in UE/LE bilaterally, no clubbing/cyanosis or edema Neuro: nonfocal, patient AA&O x 4, speech intact, no facial droop, moving all extremities on command with equal strength 5/5 Results & Data Results & Data ([facility]) Vital Signs (Past 12 Hours) Vital Signs Temp Pulse Resp BP Pulse Ox 02/26/20 22:35 94 02/26/20 22:04 36.5 C 87 18 176/93 H 99 Laboratory Results Lab Results 02/26/20 02/26/20 02/26/20 Range/Units 22:15 22:15 22:15 WBC 8.45 (4.8-10.8) K/uL RBC 3.89 L (4.2-5.4) M/uL Hgb 12.4 (12.0-16.0) g/dL Hct 36.1 L (37-47) % MCV 92.8 (80-100) fL MCH 31.9 (25-34) pg MCHC 34.3 (32-36) g/dL RDW Std Deviation 55.5 H (36.4-46.3) fL RDW Coeff of Vanessa 16.5 H (11.5-14.5) % Plt Count 281 (130-400) K/uL MPV 10.6 H (7.4-10.4) fL Immature Gran % (Auto) 0.2 % Neut % (Auto) 81.5 % Lymph % (Auto) 11.8 % [place] % (Auto) 5.8 % Eos % (Auto) 0.5 % Baso % (Auto) 0.2 % Neut # (Auto) 6.88 H (1.4-6.5) K/uL Lymph # (Auto) 1.00 L (1.2-3.4) K/uL [place] # (Auto) 0.49 (0.11-0.59) K/uL Eos # (Auto) 0.04 (0-0.5) K/uL Baso # (Auto) 0.02 (0-0.2) K/uL Immature Gran # (Auto) 0.02 (0.00-0.02) K/uL ESR 58 H (0-21) mm/hr PT 9.9 (9.0-12.0) Seconds INR 0.9 (0.9-1.1) APTT 29.7 (21.0-31.0) Seconds PTT Ratio 1.1 Sodium (136-145) mmol/L Potassium (3.5-5.1) mmol/L Chloride (98-107) mmol/L Carbon Dioxide (21-32) mmol/L Anion Gap (3-11) BUN (7-18) mg/dl Creatinine (0.6-1.2) mg/dl Est Cr Clr Drug Dosing Est GFR ( Amer) Est GFR (Non-Af Amer) BUN/Creatinine Ratio (10-20) Glucose (70-99) mg/dl Calcium (8.5-10.1) mg/dl Ferritin (8-388) ng/ml Total Bilirubin (0.2-1) mg/dl AST (15-37) U/L ALT (12-78) U/L Alkaline Phosphatase (45-117) U/L Lactate Dehydrogenase (84-246) U/L Troponin I (0-0.045) ng/ml C-Reactive Protein (0-0.29) mg/dl NT-Pro-B Natriuret Pep (0-1800) pg/ml Total Protein (6.4-8.2) gm/dl Albumin (3.4-5.0) gm/dl Globulin (2.5-4.0) gm/dl Albumin/Globulin Ratio (0.9-2) Lipase (73-393) U/L COVID-19 PCR (Negative) Influenza Type A (PCR) (Neg) Influenza Type B (PCR) (Neg) SARS-CoV-2 RNA (RT-PCR) 02/26/20 02/26/20 02/26/20 Range/Units 22:15 22:15 23:58 WBC (4.8-10.8) K/uL RBC (4.2-5.4) M/uL Hgb (12.0-16.0) g/dL Hct (37-47) % MCV (80-100) fL MCH (25-34) pg MCHC (32-36) g/dL RDW Std Deviation (36.4-46.3) fL RDW Coeff of Vanessa (11.5-14.5) % Plt Count (130-400) K/uL MPV (7.4-10.4) fL Immature Gran % (Auto) % Neut % (Auto) % Lymph % (Auto) % [place] % (Auto) % Eos % (Auto) % Baso % (Auto) % Neut # (Auto) (1.4-6.5) K/uL Lymph # (Auto) (1.2-3.4) K/uL [place] # (Auto) (0.11-0.59) K/uL Eos # (Auto) (0-0.5) K/uL Baso # (Auto) (0-0.2) K/uL Immature Gran # (Auto) (0.00-0.02) K/uL ESR (0-21) mm/hr PT (9.0-12.0) Seconds INR (0.9-1.1) APTT (21.0-31.0) Seconds PTT Ratio Sodium 136 (136-145) mmol/L Potassium 3.6 (3.5-5.1) mmol/L Chloride 107 (98-107) mmol/L Carbon Dioxide 18 L (21-32) mmol/L Anion Gap 11.0 (3-11) BUN 10 (7-18) mg/dl Creatinine 0.94 (0.6-1.2) mg/dl Est Cr Clr Drug Dosing Not Reportable Est GFR ( Amer) 67.8 Est GFR (Non-Af Amer) 58.5 BUN/Creatinine Ratio 11.0 (10-20) Glucose 151 H (70-99) mg/dl Calcium 8.8 (8.5-10.1) mg/dl Ferritin 78.6 (8-388) ng/ml Total Bilirubin 0.4 (0.2-1) mg/dl AST 26 (15-37) U/L ALT 28 (12-78) U/L Alkaline Phosphatase 186 H (45-117) U/L Lactate Dehydrogenase 219 (84-246) U/L Troponin I 0.068 H* (0-0.045) ng/ml C-Reactive Protein 1.73 H (0-0.29) mg/dl NT-Pro-B Natriuret Pep 20248 H (0-1800) pg/ml Total Protein 7.2 (6.4-8.2) gm/dl Albumin 3.1 L (3.4-5.0) gm/dl Globulin 4.1 H (2.5-4.0) gm/dl Albumin/Globulin Ratio 0.7 L (0.9-2) Lipase 237 (73-393) U/L COVID-19 PCR (Negative) Influenza Type A (PCR) Neg for Influ A (Neg) Influenza Type B (PCR) Neg for Influ B (Neg) SARS-CoV-2 RNA (RT-PCR) 02/26/20 02/26/20 Range/Units 23:58 23:58 WBC (4.8-10.8) K/uL RBC (4.2-5.4) M/uL Hgb (12.0-16.0) g/dL Hct (37-47) % MCV (80-100) fL MCH (25-34) pg MCHC (32-36) g/dL RDW Std Deviation (36.4-46.3) fL RDW Coeff of Vanessa (11.5-14.5) % Plt Count (130-400) K/uL MPV (7.4-10.4) fL Immature Gran % (Auto) % Neut % (Auto) % Lymph % (Auto) % [place] % (Auto) % Eos % (Auto) % Baso % (Auto) % Neut # (Auto) (1.4-6.5) K/uL Lymph # (Auto) (1.2-3.4) K/uL [place] # (Auto) (0.11-0.59) K/uL Eos # (Auto) (0-0.5) K/uL Baso # (Auto) (0-0.2) K/uL Immature Gran # (Auto) (0.00-0.02) K/uL ESR (0-21) mm/hr PT (9.0-12.0) Seconds INR (0.9-1.1) APTT (21.0-31.0) Seconds PTT Ratio Sodium (136-145) mmol/L Potassium (3.5-5.1) mmol/L Chloride (98-107) mmol/L Carbon Dioxide (21-32) mmol/L Anion Gap (3-11) BUN (7-18) mg/dl Creatinine (0.6-1.2) mg/dl Est Cr Clr Drug Dosing Est GFR ( Amer) Est GFR (Non-Af Amer) BUN/Creatinine Ratio (10-20) Glucose (70-99) mg/dl Calcium (8.5-10.1) mg/dl Ferritin (8-388) ng/ml Total Bilirubin (0.2-1) mg/dl AST (15-37) U/L ALT (12-78) U/L Alkaline Phosphatase (45-117) U/L Lactate Dehydrogenase (84-246) U/L Troponin I (0-0.045) ng/ml C-Reactive Protein (0-0.29) mg/dl NT-Pro-B Natriuret Pep (0-1800) pg/ml Total Protein (6.4-8.2) gm/dl Albumin (3.4-5.0) gm/dl Globulin (2.5-4.0) gm/dl Albumin/Globulin Ratio (0.9-2) Lipase (73-393) U/L COVID-19 PCR NEGATIVE (Negative) Influenza Type A (PCR) (Neg) Influenza Type B (PCR) (Neg) SARS-CoV-2 RNA (RT-PCR) Cancelled Diagnostic Findings CXR - possible bilateral airspace disease PG Care Time/CCT Total # of Minutes Spent Total Time Spent with Patient: Total time spent is greater than 50% in coordination of care (as documented) at patient's floor/unit and/or counseling patient: Coding Level of Care Code 32715 Initial Inpt Care Lvl 1 Diagnoses Shortness of breath R06.02 HTN (hypertension) I10 Hypertension type: essential hypertension Hypothyroid E03.9 CAD (coronary artery disease) I25.10 Coronary Disease-Associated Artery/Lesion type: [place] artery [place] vs. transplanted heart: [place] heart Associated angina: without angina (1) HTN (hypertension) Hypertension type: essential hypertension Qualified Code(s): I10 - Essential (primary) hypertension (2) CAD (coronary artery disease) Coronary Disease-Associated Artery/Lesion type: [place] artery [place] vs. transplanted heart: [place] heart Associated angina: without angina Qualified Code(s): I25.10 - Atherosclerotic heart disease of [place] coronary artery without angina pectoris
[2020-02-27 01:23] LABS: Influenza A virus by PCR Neg for Influ A (Neg); Influenza B virus by PCR Neg for Influ B (Neg)
[2020-02-27] MEDS ORDERED: ACETAMINOPHEN 325 MG TAB PO PRN (02:40)
[2020-02-27] MEDS ORDERED: IPRATROPIUM BROMIDE/ALBUTEROL respimat INH INH PRN (02:40)
[2020-02-27] MEDS ORDERED: ONDANSETRON INJ 2 MG/ML 2 ML VIAL IV PRN (02:40)
[2020-02-27] MEDS ORDERED: PNEUMOCOCCAL ADMINISTRATION CHARGE ONE (03:23)
[2020-02-27] MEDS ORDERED: PNEUMOCOCCAL POLYSACCHARIDES 25 MCG/0.5 ML VIAL/SYR IM ONE (03:23)
[2020-02-27] MEDS: LEVOTHYROXINE SODIUM 25 MCG TABLET PO SCH (06:13)
--- NOTE | 2020-02-27 06:27 | XRay Report ---
XR chest 1V portable CLINICAL HISTORY: Chest Pain dyspnea COMPARISON STUDY: 11/09/2019 FINDINGS: Moderate increase in cardiac size. Prominent pulmonary vasculature. Trace pleural fluid bot h lung bases. IMPRESSION: Congestive heart failure ACT 112: Negative or not required by law. The above report was generated using voice recognition software. It may contain grammatical, syntax or spelling errors. Electronically signed by: Ketan Colunga M.D. 02/27/2020 6:25 AM
[2020-02-27 06:40] LABS: Eosinophils # (auto) 0.01 K/uL (0-0.5); Eosinophils % (auto) 0.2 %; Hematocrit (blood only) 35.7 % (37-47); Hemoglobin 12.5 g/dL (12.0-16.0); Immature Granulocytes # (auto) 0.01 K/uL (0.00-0.02); Immature Granulocytes % (auto) 0.2 %; Lymphocytes # (auto) 0.26 K/uL (1.2-3.4); Lymphocytes % (auto) 4.1 %; Mean Corpuscular Hemoglobin 32.1 pg (25-34); Mean Corpuscular Volume 91.8 fL (80-100); Mean Platelet Volume 10.4 fL (7.4-10.4); Monocytes # (auto) 0.06 K/uL (0.11-0.59); Monocytes % (auto) 0.9 %; Neutrophils # (auto) 6.05 K/uL (1.4-6.5); Neutrophils % (auto) 94.6 %; Platelet Count 272 K/uL (130-400); RDW Coefficient of Variation 16.4 % (11.5-14.5); RDW Standard Deviation 54.8 fL (36.4-46.3); Red Blood Count 3.89 M/uL (4.2-5.4); White Blood Count 6.39 K/uL (4.8-10.8)
[2020-02-27 07:24] LABS: BUN Creatinine Ratio 10.5 (10-20); Calcium 8.8 mg/dl (8.5-10.1); Creatinine Clr Calc Pharmacy 34.2 ml/min; Magnesium 1.9 mg/dl (1.8-2.4); Potassium 3.3 mmol/L (3.5-5.1)
[2020-02-27 07:31] LABS: Phosphorus 3.2 mg/dl (2.5-4.9); Troponin I 0.082 ng/ml (0-0.045)
[2020-02-27] MEDS: METOPROLOL SUCC 25MG EXT REL TAB PO SCH (07:48)
[2020-02-27] MEDS: FERROUS SULFATE 325 MG TAB PO SCH ×2 (07:50→20:05)
[2020-02-27] MEDS: CYANOCOBALAMIN 500 MCG TABLET (VITAMIN B-12) PO SCH (07:50)
[2020-02-27] MEDS: TICAGRELOR 90 MG TAB PO SCH ×2 (07:51→20:05)
[2020-02-27] MEDS: HydrALAZINE 10 MG TAB PO SCH ×3 (07:51→20:05)
[2020-02-27] MEDS: PANTOprazole 40 MG TAB PO SCH (07:51)
[2020-02-27] MEDS: FLUTICASONE/VILANTEROL 100/25MCG 14 PUFFS/INHALER INH SCH (07:52)
[2020-02-27] MEDS ORDERED: FUROSEMIDE 40 MG in SYRINGE 0 ML IV ONE (08:00)
--- NOTE | 2020-02-27 10:45 | XCELERA ---
[id number]
[2020-02-27] MEDS: ATORVASTATIN 40 MG TAB PO SCH (14:03)
--- NOTE | 2020-02-27 15:27 | Electrocardiogram Report ---
Test Reason : Blood Pressure : / mmHG Vent. Rate : 096 BPM Atrial Rate : 096 BPM P-R Int : 138 ms QRS Dur : 120 ms QT Int : 384 ms P-R-T Axes : 071 015 124 degrees QTc Int : 485 ms Poor data quality, interpretation may be adversely affected Normal sinus rhythm Possible Left atrial enlargement Left bundle branch block Abnormal ECG Confirmed by Robert Christian ([id number]) on 02/27/2020 3:27:22 PM Referred By: REFERRED SELF Confirmed By:Ayden Christian
--- NOTE | 2020-02-27 17:10 | History & Physical Bridge Note ---
Date of Service February 27, 2020 History & Physical Bridge Note Notes breathing has improved from when she was admitted. - Continue diuresis - Monitor weights/I&Os
[2020-02-27] MEDS: CHOLECALCIFEROL 1,000 UNITS 25 MCG TAB PO SCH (20:05)
[2020-02-28] MEDS: ALBUTEROL 0.5% NEB SOLN 2.5 MG/0.5 ML VIAL NEB PRN (04:46)
[2020-02-28] MEDS: LEVOTHYROXINE SODIUM 50 MCG TABLET PO SCH (05:34)
[2020-02-28 06:38] LABS: Hemoglobin 12.2 g/dL (12.0-16.0); Mean Corpuscular Hemoglobin 31.2 pg (25-34); Mean Corpuscular Volume 94.6 fL (80-100); Mean Platelet Volume 10.3 fL (7.4-10.4); Platelet Count 285 K/uL (130-400); RDW Coefficient of Variation 16.7 % (11.5-14.5); Red Blood Count 3.91 M/uL (4.2-5.4); White Blood Count 7.08 K/uL (4.8-10.8)
[2020-02-28 07:16] LABS: BUN Creatinine Ratio 13.9 (10-20); Calcium 8.8 mg/dl (8.5-10.1); Creatinine Clr Calc Pharmacy 30.8 ml/min; Est GFR (Non-African American) 38.8; Magnesium 1.7 mg/dl (1.8-2.4); Potassium 3.4 mmol/L (3.5-5.1)
[2020-02-28 07:17] LABS: Phosphorus 3.4 mg/dl (2.5-4.9)
[2020-02-28] MEDS: FLUTICASONE/VILANTEROL 100/25MCG 14 PUFFS/INHALER INH SCH (07:46)
[2020-02-28] MEDS: METOPROLOL SUCC 25MG EXT REL TAB PO SCH (07:47)
[2020-02-28] MEDS: HydrALAZINE 10 MG TAB PO SCH ×3 (07:47→20:31)
[2020-02-28] MEDS: PANTOprazole 40 MG TAB PO SCH (07:47)
[2020-02-28] MEDS: ATORVASTATIN 40 MG TAB PO SCH (07:47)
[2020-02-28] MEDS: TICAGRELOR 90 MG TAB PO SCH ×2 (07:48→20:30)
[2020-02-28] MEDS: FERROUS SULFATE 325 MG TAB PO SCH ×2 (07:48→20:31)
[2020-02-28] MEDS: CYANOCOBALAMIN 500 MCG TABLET (VITAMIN B-12) PO SCH (07:48)
[2020-02-28] MEDS ORDERED: FUROSEMIDE 40 MG in SYRINGE 0 ML IV SCH (10:00)
--- NOTE | 2020-02-28 11:22 | Cardiology Consultation ---
Date of Consultation February 28, 2020 Assessment & Plan (1) Congestive heart failure: It seems likely that her dyspnea is more related to pulmonary vascular congestion and decompensation of her heart failure rather than bronchitis. She presented with objective findings of pulmonary vascular congestion to include abnormal chest x-ray and markedly elevated N terminal proBNP. She also describes orthopnea, swelling and worsening exercise intolerance. I agree with continued diuresis. Very small elevation in her creatinine today, but definitely an improvement in her symptoms. She appears to have diuresed about a liter yesterday and I will continue her on her current dose of diuretic aiming for 1-2 liters negative daily. We can follow her electrolytes and renal function closely. She may require outpatient diuretics at the time of discharge, but this can be determined based on her response and symptoms when she is ready to leave. She does have an ischemic cardiomyopathy that appears slightly worse on her current echocardiogram. Perhaps this is due to decompensation. Do not believe she has suffered any additional coronary event. I think we will need to intensify her medical regimen for heart failure. I think we can double her current dose of lisinopril and metoprolol succinate. We could consider discontinuing her hydralazine in favor of higher doses of lisinopril at some point as well. We can follow her renal function and electrolytes. If she tolerates the higher dose of lisinopril she would likely be a good candidate for Entresto as well. (2) CAD (coronary artery disease): No recurrent chest pain. No symptoms recently suggestive of an acute coronary syndrome or angina. She has a history of suspected gastrointestinal hemorrhage. She has currently been maintained exclusively on Brilinta. She was on high-dose atorvastatin and beta blockade as well. (3) Mitral regurgitation: Mild on echocardiogram performed yesterday. (4) Left bundle branch block: Chronic. Unchanged. History of Present Illness Reason for Consultation: Dyspnea, cardiomyopathy Requesting Physician: Collin Attending Physician: Titus Polanco MD History of Present Illness The patient is a 79-year-old woman with a history of coronary artery disease having suffered a in acute ST-elevation myocardial infarction in July of 2019. At that time she presented with chest discomfort and was discovered to have stenosis involving both the distal circumflex and LAD. She underwent intervention to both vessels in the remainder of her hospital course was uncomplicated. She was however noted to have reduced LV function and her overall presentation to the hospital with somewhat late. For a couple of months she has been struggling with some dyspnea. This was diagnosed as bronchitis previously and she did undergo outpatient treatment for primary lung process. However, this did not appear to improve her symptoms significantly and based on progression of her dyspnea she presented to the hospital for evaluation. Patient states that more recently she has had difficulty sleeping due to orthopnea and paroxysmal nocturnal dyspnea. She has noticed some swelling in her lower extremities specifically her ankles. She does not generally keep track of her weight. She has had more difficulty with activities due to dyspnea and fatigue. She has not had significant dizziness or lightheadedness. She has not had syncope. She has noticed an occasional fluttering" sensation, but no sustained episodes of palpitations. She has not had any recurrence of her chest pain. She was admitted and underwent diuresis. She states that her breathing is somewhat improved from admission. An echocardiogram performed yesterday revealed worsening LV systolic function. Allergies Allergy/AdvReac Type Severity Reaction Status Date / Time No Known Allergies Allergy Verified 02/26/20 23:42 Home Medications Home Medications Medication Instructions Recorded Confirmed Type cholecalciferol (vitamin D3) 50 4,000 units PO HS tab 05/26/19 02/26/20 History mcg (2,000 unit) tablet levothyroxine 25 mcg PO Q OTHER DAY 07/17/19 02/26/20 History levothyroxine 50 mcg PO Q OTHER DAY 07/17/19 02/26/20 History Brilinta 90 mg PO BID 30 Days #60 tab 07/19/19 02/26/20 Rx atorvastatin 80 mg PO QAM 30 Days #60 tab 07/19/19 02/26/20 Rx lisinopril 2.5 mg PO QAM 30 Days #30 tab 07/19/19 02/26/20 Rx hydralazine 10 mg tablet 10 mg PO TID tab 09/24/19 02/26/20 History metoprolol succinate [Toprol XL] 12.5 mg PO QAM 11/09/19 02/26/20 History cyanocobalamin (vitamin B-12) 1,000 mcg PO DAILY #30 cap 11/10/19 02/26/20 Rx ferrous sulfate 325 mg PO BID #60 tab 11/10/19 02/26/20 Rx ipratropium-albuterol [Combivent 1 puffs INH Q6H PRN #4 gm 03/10/20 06/26/20 Rx Respimat] pantoprazole [Protonix] 40 mg PO QAM #30 tab 11/10/19 02/26/20 Rx fluticasone propion-salmeterol 1 inh INHALATION BID 02/26/20 02/26/20 History [Wixela Inhub] Patient History Medical History (Updated 02/29/20 @ 22:39 by Brionna Mir MD) Atrial tachycardia CAD (coronary artery disease) HTN (hypertension) Left bundle branch block Surgical History S/P AAA repair Family History Other Hypertension Social History Preferred Language: Ukrainian 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 Beliefs That Will Affect Care: None marital status: Current Living Situation: Spouse Other Information That Helps Us Care for You: No Feels Safe at Home: Yes Safety Concerns: Feels Safe At This Time Smoking Status: Current every day smoker Tobacco Type: cigarettes ; Cigarettes Per Day: 5 ; Do You Dip or Chew Tobacco: No ; Second Hand Exposure: Yes ; Tobacco Cessation Education Requested by Patient: No Hx Alcohol Use: Yes Alcohol type: wine Hx Substance Use: No Review of Systems Review of Systems: All systems reviewed & are unremarkable except as noted in HPI & below Physical Exam Physical Exam: She is alert and oriented x3. Mood affect appear normal. She answered all questions appropriately. HEENT: Sclerae are anicteric. Pupils are equal and reactive to light and accommodation. Extraocular movements were intact. Neuro: Cranial nerves intact Neck: Examination of the submandibular region did not reveal any significant lymphadenopathy. Carotids are palpable bilaterally and free of bruits on auscultation. Mild jugular venous distention. The thyroid was not enlarged. Lungs: Occasional crackles in the bases bilaterally She has normal respiratory effort without use of accessory muscles. There is normal pulmonary excursion. Cardiac: The rhythm was regular. S1 and S2 were normal. There are no murmurs on examination. The PMI was not markedly displaced on palpation. Abdomen: The abdomen was soft and nontender. Extremities: Patient has bilateral radial pulses that are equal in intensity. There is no evidence cyanosis or clubbing. There was no evidence of significant peripheral edema bilaterally. Skin: There are no rashes noted on examination today. Tattoos noted Results & Data ([facility]) Vital Signs (Past 12 Hours) Vital Signs Temp Pulse Pulse Resp BP Pulse Ox 02/28/20 08:56 68 02/28/20 07:37 36.6 C 83 16 156/83 H 98 02/28/20 04:47 71 22 99 02/28/20 02:48 36.4 C L 86 20 145/78 H 98 02/27/20 23:13 36.7 C 73 18 138/76 95 Laboratory Results Abnormal Lab Results 02/27/20 02/28/20 02/28/20 12:44 06:19 06:19 WBC 7.08 RBC 3.91 L Hgb 12.2 Hct 37.0 MCV 94.6 MCH 31.2 MCHC 33.0 RDW Std Deviation 57.0 H RDW Coeff of Vanessa 16.7 H Plt Count 285 MPV 10.3 Sodium 140 Potassium 3.4 L Chloride 107 Carbon Dioxide 27 Anion Gap 6.0 BUN 18 Creatinine 1.32 H Est Cr Clr Drug Dosing 30.8 Est GFR ( Amer) 45.0 Est GFR (Non-Af Amer) 38.8 BUN/Creatinine Ratio 13.9 Glucose 117 H Calcium 8.8 Phosphorus 3.4 Magnesium 1.7 L Troponin I 0.084 H* Diagnostic Findings Echocardiogram performed yesterday revealing ejection fraction 20-25 percent. Mild mitral regurgitation. Mild dilation of the inferior vena cava Chest x-ray obtained at the time of admission revealed pulmonary edema ECG Additional Comments: EKG obtained at time admission revealed normal sinus rhythm with left bundle branch block PG Care Time/CCT Total # of Minutes Spent Total Time Spent with Patient: Total time spent is greater than 50% in coordination of care (as documented) at patient's floor/unit and/or counseling patient: Coding Level of Care Code 75672 Initial Inpt Care Lvl 3 Diagnoses Congestive heart failure I50.9 Heart failure chronicity: unspecified Heart failure type: unspecified CAD (coronary artery disease) I25.10 Associated angina: without angina Coronary Disease-Associated Artery/Lesion type: [place] artery [place] vs. transplanted heart: [place] heart Mitral regurgitation I34.0 Left bundle branch block I44.7 (1) CAD (coronary artery disease) Associated angina: without angina Coronary Disease-Associated Artery/Lesion type: [place] artery [place] vs. transplanted heart: [place] heart Qualified Code(s): I25.10 - Atherosclerotic heart disease of [place] coronary artery without angina pectoris (2) Congestive heart failure Heart failure chronicity: unspecified Heart failure type: unspecified Qualified Code(s): I50.9 - Heart failure, unspecified
[2020-02-28] MEDS ORDERED: POTASSIUM CHLORIDE 20 MEQ TABCR PO STA (16:24)
--- NOTE | 2020-02-28 16:24 | Hospitalist Progress Note ---
Date of Service February 28, 2020 Assessment & Plan (1) Shortness of breath: Concern for CHF over infectious process. Covid-19 assay negative. Has history of ischemic cardiomyopathy, mild systolic CHF with EF of 40-45% - Repeat echo with EF 20 - 25%. - Seen by cardiology: Continue diuresis, adjust CHF meds. Will see Dr. 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 - O2 as needed - Continue Combivent, Fluticasone/Salmeterol (2) Atrial fibrillation: Had several hour run of afib on 02/26 at 8am. - Holding anticoagulation for now given her recent GI bleed. No urgency to start heparin gtt per cardiology. - Cardiology discussed anticoagulation with her. 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 (3) HTN (hypertension): Chronic. Stable today at 120/75. - Continue Hydralazine, Lisinopril, Metoprolol - Monitor (4) Hypothyroid: Chronic -Continue Synthroid (5) CAD (coronary artery disease): Chronic. NSTEMI s/p NARCISO x 2 placed on 07/17/19. Patient follows with Dr. Rivera. Was recently on DAPT with Brillinta and ASA - had GIB and ASA was discontinued. -Continue Brillinta, Metoprolol, Lisinopril, Atorvastatin F/E/N- [place], monitor electrolytes, heart healthy diet Ppx - Continue Protonix Code - DNR/DNI Dispo - Admit to med/tele Admission and Anticipated Discharge Date Admission Date: February 27, 2020 Subjective Feels some better today. Less shortness of breath, but still can't lie flat. Reports no fevers/chills, chest pain, abdominal pain, nausea, or vomiting. Physical Exam Constitutional: WD/WN, vitals as above Eyes: EOM intact bilaterally; no conjunctival abnormality ENMT: external ear and nose normal, oropharynx normal Neck: trachea midline, no thyromegaly normal visual inspection Respiratory: normal respiratory effort, lungs clear to auscultation no respiratory distress Cardiovascular: RRR, no murmur, no edema Gastrointestinal (Abdomen): Inspection/Auscultation: abdomen normal to inspection; abdomen not distended Musculoskeletal: no cyanosis or clubbing, extremities motor strength 5/5 Skin: no rashes, warm and dry Neurologic: moves all extremities and awake Psychiatric: Orientation: alert, oriented to person and cooperative Results & Data Results & Data ([facility]) Vital Signs (Past 12 Hours) Vital Signs Temp Pulse Pulse Resp BP Pulse Ox 02/28/20 15:03 36.6 C 69 18 118/74 99 02/28/20 08:56 68 02/28/20 07:37 36.6 C 83 16 156/83 H 98 02/28/20 04:47 71 22 99 PG Care Time/CCT Total # of Minutes Spent Total Time Spent with Patient: Total time spent is greater than 50% in coordination of care (as documented) at patient's floor/unit and/or counseling patient: Coding Level of Care Code 57083 Subseq Hosp Care Lvl 3 Diagnoses Shortness of breath R06.02 Atrial fibrillation I48.91 HTN (hypertension) I10 Hypertension type: essential hypertension Hypothyroid E03.9 CAD (coronary artery disease) I25.10 Coronary Disease-Associated Artery/Lesion type: [place] artery [place] vs. transplanted heart: [place] heart Associated angina: without angina (1) HTN (hypertension) Hypertension type: essential hypertension Qualified Code(s): I10 - Essential (primary) hypertension (2) CAD (coronary artery disease) Coronary Disease-Associated Artery/Lesion type: [place] artery [place] vs. transplanted heart: [place] heart Associated angina: without angina Qualified Code(s): I25.10 - Atherosclerotic heart disease of [place] coronary artery without angina pectoris
[2020-02-28] MEDS: MAGNESIUM SULFATE / D5W 1 GM/100 ML BAG IV SCH ×2 (16:49→18:37)
[2020-02-28] MEDS ORDERED: METOPROLOL SUCC 25MG EXT REL TAB PO ONE (20:00)
[2020-02-28] MEDS: CHOLECALCIFEROL 1,000 UNITS 25 MCG TAB PO SCH (20:30)
[2020-02-29] MEDS: ALBUTEROL 0.5% NEB SOLN 2.5 MG/0.5 ML VIAL NEB PRN (01:37)
[2020-02-29] MEDS: LEVOTHYROXINE SODIUM 25 MCG TABLET PO SCH (06:34)
[2020-02-29 06:53] LABS: Hematocrit (blood only) 36.8 % (37-47); Hemoglobin 12.2 g/dL (12.0-16.0); Mean Corpuscular Hemoglobin 31.6 pg (25-34); Mean Corpuscular Hgb Conc 33.2 g/dL (32-36); Mean Corpuscular Volume 95.3 fL (80-100); Mean Platelet Volume 10.1 fL (7.4-10.4); Platelet Count 270 K/uL (130-400); RDW Coefficient of Variation 16.6 % (11.5-14.5); RDW Standard Deviation 57.9 fL (36.4-46.3); Red Blood Count 3.86 M/uL (4.2-5.4); White Blood Count 6.37 K/uL (4.8-10.8)
[2020-02-29 07:21] LABS: BUN Creatinine Ratio 16.3 (10-20); Calcium 8.6 mg/dl (8.5-10.1); Creatinine Clr Calc Pharmacy 32.3 ml/min; Est GFR (African American) 47.6; Est GFR (Non-African American) 41.1; Magnesium 2.2 mg/dl (1.8-2.4); Potassium 3.8 mmol/L (3.5-5.1)
[2020-02-29] MEDS: FLUTICASONE/VILANTEROL 100/25MCG 14 PUFFS/INHALER INH SCH (07:53)
[2020-02-29] MEDS: METOPROLOL SUCC 25MG EXT REL TAB PO SCH (07:53)
[2020-02-29] MEDS: TICAGRELOR 90 MG TAB PO SCH ×2 (07:53→20:25)
[2020-02-29] MEDS: PANTOprazole 40 MG TAB PO SCH (07:54)
[2020-02-29] MEDS: ATORVASTATIN 40 MG TAB PO SCH (07:54)
[2020-02-29] MEDS: HydrALAZINE 10 MG TAB PO SCH (07:54)
[2020-02-29] MEDS: lisinopriL 5 MG TAB PO SCH (07:54)
[2020-02-29] MEDS: FERROUS SULFATE 325 MG TAB PO SCH ×2 (07:55→20:25)
[2020-02-29] MEDS: CYANOCOBALAMIN 500 MCG TABLET (VITAMIN B-12) PO SCH (07:55)
[2020-02-29] MEDS ORDERED: POTASSIUM CHLORIDE 20 MEQ TABCR PO STA (08:08)
[2020-02-29] MEDS: FUROSEMIDE 40 MG in SYRINGE 0 ML IV SCH ×3 (10:05→16:53)
--- NOTE | 2020-02-29 12:11 | Hospitalist Progress Note ---
Date of Service February 29, 2020 Assessment & Plan (1) Congestive heart failure: Acute on chronic systolic CHF Concern for CHF rather than infectious process upon admission. Covid-19 assay negative. Has history of ischemic cardiomyopathy, mild systolic CHF with EF of 40-45% - Repeat echo here now with EF 20 - 25%. - Appreciate cardiology consultation - O2 as needed -continue diuresis-has improved leg edema, remains with orthopnea and PND -increase IV lasix to bid -follow BMP and replace lytes as needed -continue Toprol XL which was increased to 25mg daily -continue increased dose of lisinopril to 5mg daily -dc hydralazine so more room to adjust CHF meds with less dizziness and hypot ension (2) HTN (hypertension): Chronic. BPs mildly low today and pt symptomatic since increasing Toprol and lisinopril doses - dc Hydralazine -continue Lisinopril, Metoprolol - Monitor (3) Hypothyroid: Chronic TSH elevated at 4.62 in 11/2019 -Continue Synthroid at currentl dose -follow TSH as outpt -would not increase dose in setting of known CAD (4) CAD (coronary artery disease): Chronic. NSTEMI s/p NARCISO x 2 placed on 07/17/19. Patient follows with Dr. Rivera. Was recently on DAPT with Brillinta and ASA - had GIB and ASA was discontinued. -Continue Brillinta, Metoprolol, Lisinopril, Atorvastatin (5) Atrial tachycardia: initially thought to be A-fib but review by Dr. Rivera suspects to be atrial tachycardia -no need for anticoagulation -follow on tele (6) DVT prophylaxis: Add on Lovenox SQ Code - DNR/DNI Dispo -continued stay on med/tele for continued diuresis and acute CHF Admission and Anticipated Discharge Date Admission Date: February 27, 2020 Subjective Pt feeling a little better and legs are less swollen. Still having PND, orthopnea. Denies CP. Had an episode of lightheadedness and diaphoresis after returning from the bathroom without wearing her O2 today which resolved with putting O2 back on and rest. BPs were also running on low side at that time Tele with NSR rates 60-70s, short runs VT 3 and 5 beats Review of Systems Review of Systems: All systems reviewed & are unremarkable except as noted in HPI & below Physical Exam Constitutional: WD/WN, vitals as above Eyes: + anicteric sclerae Neck: trachea midline, no thyromegaly Respiratory: normal respiratory effort Auscultation: + crackles (bibasilar); no rhonchi and no wheezes Cardiovascular: RRR, no murmur, no edema Chest (Breasts): Chest: normal inspection of chest Gastrointestinal (Abdomen): normal bowel sounds, soft, nontender, no hepatosplenomegaly Musculoskeletal: Extremities: extremities normal to inspection; no cyanosis and no clubbing Skin: no rashes, warm and dry Neurologic: moves all extremities and awake; no focal motor deficits Psychiatric: A+Ox3, euthymic affect Lymphatic: no lymphedema Results & Data Results & Data ([facility]) Vital Signs (Past 12 Hours) Vital Signs Temp Pulse Pulse Resp BP Pulse Ox 02/29/20 11:50 66 22 107/66 99 02/29/20 11:08 36.4 C L 64 17 106/69 100 02/29/20 07:19 63 02/29/20 07:07 36.4 C L 65 18 121/74 98 02/29/20 03:06 36.5 C 70 18 123/76 99 02/29/20 01:39 62 16 99 Laboratory Results 02/29/20 02/29/20 Range/Units 06:27 06:27 WBC 6.37 (4.8-10.8) K/uL RBC 3.86 L (4.2-5.4) M/uL Hgb 12.2 (12.0-16.0) g/dL Hct 36.8 L (37-47) % MCV 95.3 (80-100) fL MCH 31.6 (25-34) pg MCHC 33.2 (32-36) g/dL RDW Std Deviation 57.9 H (36.4-46.3) fL RDW Coeff of Vanessa 16.6 H (11.5-14.5) % Plt Count 270 (130-400) K/uL MPV 10.1 (7.4-10.4) fL Sodium 139 (136-145) mmol/L Potassium 3.8 (3.5-5.1) mmol/L Chloride 108 H (98-107) mmol/L Carbon Dioxide 24 (21-32) mmol/L Anion Gap 7.0 (3-11) BUN 21 H (7-18) mg/dl Creatinine 1.26 H (0.6-1.2) mg/dl Est Cr Clr Drug Dosing 32.3 ml/min Est GFR ( Amer) 47.6 Est GFR (Non-Af Amer) 41.1 BUN/Creatinine Ratio 16.3 (10-20) Glucose 107 H (70-99) mg/dl Calcium 8.6 (8.5-10.1) mg/dl Magnesium 2.2 (1.8-2.4) mg/dl PG Care Time/CCT Total # of Minutes Spent Total Time Spent with Patient: Total time spent is greater than 50% in coordination of care (as documented) at patient's floor/unit and/or counseling patient: Coding Level of Care Code 71873 Subseq Hosp Care Lvl 3 Diagnoses Congestive heart failure I50.9 Heart failure chronicity: unspecified Heart failure type: unspecified HTN (hypertension) I10 Hypertension type: essential hypertension Hypothyroid E03.9 CAD (coronary artery disease) I25.10 Associated angina: without angina Coronary Disease-Associated Artery/Lesion type: [place] artery [place] vs. transplanted heart: [place] heart Atrial tachycardia I47.1 DVT prophylaxis Z29.9 (1) CAD (coronary artery disease) Associated angina: without angina Coronary Disease-Associated Artery/Lesion type: [place] artery [place] vs. transplanted heart: [place] heart Qualified Code(s): I25.10 - Atherosclerotic heart disease of [place] coronary artery without angina pectoris (2) Congestive heart failure Heart failure chronicity: unspecified Heart failure type: unspecified Reji lified Code(s): I50.9 - Heart failure, unspecified (3) HTN (hypertension) Hypertension type: essential hypertension Qualified Code(s): I10 - Essential (primary) hypertension
--- NOTE | 2020-02-29 14:13 | Cardiology Progress Note ---
Date of Service February 29, 2020 Subjective She feels much better this morning. She denies any chest pain or chest pressure either now or over the last 10 to 14 days. She has been salt loading noting that she had 5 cans of 1800 mg of soup over the last 2 weeks.She did note pedal edema and ankle edema before she came into the hospital this is since resolved. She did have an episode of palpitations in the hospital which she did not have at home I again asked her if she had noticed any palpitations at home and she denied it. She did have orthopnea at home but this has improved as she is laying relatively flat in bed without significant dyspnea currently. She has not last dizziness presyncope syncope she denies any falls at home she did note some mild blood when she wiped herself but she denies any dark black tarry stools or blood in her stool like she had with her previous GI bleed Results & Data Vital Signs (Past 12 Hours) Vital Signs Temp Pulse Pulse Resp BP Pulse Ox 02/29/20 11:50 66 22 107/66 99 02/29/20 11:08 36.4 C L 64 17 106/69 100 02/29/20 07:19 63 02/29/20 07:07 36.4 C L 65 18 121/74 98 02/29/20 03:06 36.5 C 70 18 123/76 99 She is awake alert oriented x3 she looks older than her stated age. HEENT she has bilateral carotid bruit is much louder on the left compared to the right Lungs coarse breath sounds throughout without obvious wheezing, she does have underlying rhonchi Heart: Regular rate and rhythm no appreciable murmurs rubs or gallops Abdomen soft nondistended positive bowel sounds Extremities: No clubbing cyanosis or edema Psych:Affect appeared normal Impressions: 1A. Acute on chronic systolic heart failure 1B: Worsening LV dysfunction with an EF in the range of 25 to 30% compared to her prior admission where it was in the range of 45% 1. History of a GI bleed - On Brilinta only 2. Coronary disease status post angioplasty and stenting 07/2019 to the left anterior descending artery and the circumflex 3. Cath report from 07/2019: LM -moderate caliber, luminal irregularities LAD -moderate caliber, proximal luminal irregularities, 80 to 90% mid segment disease, distal luminal irregularities as wraps around apex. Moderate caliber first diagonal with 30 to 40% mid segment disease. Circumflex -moderate caliber, 40% mid segment disease, 99% acute earlydistal focal stenosis prior to takeoff of OM 2, left PLB RCA -small to moderate caliber vessel, dominant, luminal irregularities 4. Peripheral tear disease with known carotid disease 5. Narrow complex tachycardia with some irregularity at a rate of about 175 bpm which looks like an atrial tachycardia -- For now I would avoid anticoagulation given her history of GI bleeding. If she feels more palpitations either as an inpatient or as an outpatient we will need to consider an event recorder. My hope is that her LV dysfunction is just related to volume overloading from her heart failure. Once we adequately do to diurese her the hope is that her LV function will improve. She is currently on Toprol and lisinopril. If she remains with LV dysfunction I would consider Entresto as an outpatient. I would continue with her diuresis.We will have to closely monitor her creatin ine as she is starting to look more prerenal. I would keep her potassium greater than 4 and magnesium greater than 2.0 She is looking better. Her edema has resolved. She still does appear slightly short of breath talking in sentences for me. Of note she does have chronic rhonchi. We will continue to follow her with you
[2020-02-29] MEDS: CHOLECALCIFEROL 1,000 UNITS 25 MCG TAB PO SCH (20:25)
[2020-03-01] MEDS: ALBUTEROL 0.5% NEB SOLN 2.5 MG/0.5 ML VIAL NEB PRN (02:00)
[2020-03-01] MEDS: LEVOTHYROXINE SODIUM 50 MCG TABLET PO SCH (05:42)
[2020-03-01 06:06] LABS: Basophils # (auto) 0.01 K/uL (0-0.2); Basophils % (auto) 0.1 %; Eosinophils # (auto) 0.11 K/uL (0-0.5); Eosinophils % (auto) 1.6 %; Hematocrit (blood only) 37.7 % (37-47); Hemoglobin 12.6 g/dL (12.0-16.0); Immature Granulocytes # (auto) 0.01 K/uL (0.00-0.02); Immature Granulocytes % (auto) 0.1 %; Lymphocytes # (auto) 1.28 K/uL (1.2-3.4); Lymphocytes % (auto) 18.2 %; Mean Corpuscular Hemoglobin 31.3 pg (25-34); Mean Corpuscular Hgb Conc 33.4 g/dL (32-36); Mean Corpuscular Volume 93.5 fL (80-100); Mean Platelet Volume 10.3 fL (7.4-10.4); Monocytes # (auto) 0.61 K/uL (0.11-0.59); Monocytes % (auto) 8.7 %; Neutrophils % (auto) 71.3 %; Platelet Count 283 K/uL (130-400); RDW Coefficient of Variation 16.2 % (11.5-14.5); RDW Standard Deviation 55.5 fL (36.4-46.3); Red Blood Count 4.03 M/uL (4.2-5.4); White Blood Count 7.02 K/uL (4.8-10.8)
[2020-03-01 06:35] LABS: BUN Creatinine Ratio 19.2 (10-20); Calcium 8.5 mg/dl (8.5-10.1); Creatinine Clr Calc Pharmacy 31.1 ml/min; Est GFR (African American) 45.4; Est GFR (Non-African American) 39.2; Magnesium 1.8 mg/dl (1.8-2.4); Potassium 3.5 mmol/L (3.5-5.1)
[2020-03-01] MEDS ORDERED: ENOXAPARIN INJ 40 MG/0.4 ML SYR SQ SCH (08:00)
[2020-03-01] MEDS ORDERED: POTASSIUM CHLORIDE 20 MEQ TABCR PO STA (08:46)
[2020-03-01] MEDS: PANTOprazole 40 MG TAB PO SCH (08:54)
[2020-03-01] MEDS: METOPROLOL SUCC 25MG EXT REL TAB PO SCH (08:54)
[2020-03-01] MEDS: TICAGRELOR 90 MG TAB PO SCH (08:55)
[2020-03-01] MEDS: FERROUS SULFATE 325 MG TAB PO SCH (08:55)
[2020-03-01] MEDS: CYANOCOBALAMIN 500 MCG TABLET (VITAMIN B-12) PO SCH (08:55)
[2020-03-01] MEDS: ATORVASTATIN 40 MG TAB PO SCH (08:55)
[2020-03-01] MEDS: lisinopriL 5 MG TAB PO SCH (08:55)
[2020-03-01] MEDS: FLUTICASONE/VILANTEROL 100/25MCG 14 PUFFS/INHALER INH SCH (08:56)
[2020-03-01] MEDS: FUROSEMIDE 40 MG in SYRINGE 0 ML IV SCH (08:56)
--- NOTE | 2020-03-01 09:00 | Cardiology Progress Note ---
Date of Service March 01, 2020 Subjective She denies any chest pain or chest pressure. Her shortness of breath has improved. She notes she slept better last night but most evenings only sleeps about 3 hours and then feels like she wakes herself up from sleep. She had a nebulizer treatment last night which did improve her sleeping. She has any lightheadedness or dizziness presyncope or syncope. Her lower extremity edema has resolved. She denies any palpitations or fluttering like she had when she initially came to the hospital. She denies a significant cough. Her sputum is nonproductive. She does feel much better overall. Results & Data Vital Signs (Past 12 Hours) Vital Signs Temp Pulse Pulse Resp BP Pulse Ox 03/01/20 07:09 36.6 C 69 19 135/82 100 03/01/20 07:00 72 03/01/20 04:00 36.4 C L 74 19 117/75 99 03/01/20 02:00 68 20 99 03/01/20 00:24 70 02/29/20 23:00 36.4 C L 69 18 127/80 99 She is awake alert oriented x3 she looks older than her stated age. HEENT she has bilateral carotid bruit is much louder on the left compared to the right Lungs faint inspiratory rhonchi which are much improved compared to yesterday Heart: Regular rate and rhythm no appreciable murmurs rubs or gallops Abdomen soft nondistended positive bowel sounds Extremities: No clubbing cyanosis or edema Psych:Affect appeared normal Impressions: 1A. Acute on chronic systolic heart failure 1B: Worsening LV dysfunction with an EF in the range of 25 to 30% compared to her prior admission where it was in the range of 45% 1. History of a GI bleed - On Brilinta only 2. Coronary disease status post angioplasty and stenting 07/2019 to the left anterior descending artery and the circumflex 3. Cath report from 07/2019: LM -moderate caliber, luminal irregularities LAD -moderate caliber, proximal luminal irregularities, 80 to 90% mid segment disease, distal luminal irregularities as wraps around apex. Moderate caliber first diagonal with 30 to 40% mid segment disease. Circumflex -moderate caliber, 40% mid segment disease, 99% acute earlydistal focal stenosis prior to takeoff of OM 2, left PLB RCA -small to moderate caliber vessel, dominant, luminal irregularities 4. Peripheral tear disease with known carotid disease 5. Narrow complex tachycardia with some irregularity at a rate of about 175 bpm which looks like an atrial tachycardia -- For now I would avoid anticoagulation given her history of GI bleeding. If she feels more palpitations either as an inpatient or as an outpatient we will need to consider an event recorder. I am okay with her going home today. We did do heart failure education at the bedside. I would send her home on 40 mg of Lasix. She was not on diuretics at home prior to this admission. Her hydralazine can be discontinued and she can be discharged on her current dose of Toprol and lisinopril. She will remain on her Brilinta through July 2020 unless she has additional bleeding and we will switch her back to aspirin only. We discussed daily weights. We discussed diet in detail. She will need a BMP in 7 days. I will arrange for her to see 1 of the physician assistants in the office in 7 to 10 days for heart failure follow-up. If she can ambulate in the hallway and feels well she can be discharged from my standpoint. I will arrange for an outpatient sleep study as I do wonder if she does not have significant sleep apnea that is contributing to some of her dyspnea and lack of sleep at night.
[2020-03-01] MEDS ORDERED: MAGNESIUM SULFATE / D5W 1 GM/100 ML BAG IV ONE (09:15)
--- NOTE | 2020-03-01 12:20 | Discharge Summary ---
Date of Service March 01, 2020 Admission HPI Per Admitting Provider 79yo C female with CAD, HTN presenting with SOB. Reports she had bronchitis in October, never fully recovered. She has been treated with abx, steroids and inhalers since then with no improvement. Continued SOB, acutely worse over the last day. No cough, fevers, chills, nausea, vomiting, abdominal pain, diarrhea Principal Diagnosis Acute on chronic systolic CHF Discharge Exam Constitutional WD/WN, vitals as above Eyes + anicteric sclerae Neck trachea midline, no thyromegaly Respiratory normal respiratory effort Auscultation: lungs clear to auscultation bilaterally Cardiovascular RRR, no murmur, no edema Chest (Breasts) Chest: normal inspection of chest Gastrointestinal (Abdomen) normal bowel sounds, soft, nontender, no hepatosplenomegaly Musculoskeletal Extremities: extremities normal to inspection; no cyanosis and no clubbing Skin no rashes, warm and dry Neurologic moves all extremities and awake; no focal motor deficits Psychiatric A+Ox3, euthymic affect Lymphatic no lymphedema Discharge Data Allergies Allergy/AdvReac Type Severity Reaction Status Date / Time No Known Allergies Allergy Verified 02/26/20 23:42 Consultations 02/26/20 22:42 ED Decision to Admit Stat 02/27/20 17:09 Consult Cardiology Routine Ordered Studies Chest x-ray Echocardiogram Hospital Course (1) Congestive heart failure: Acute on chronic systolic CHF Concern for CHF rather than infectious process upon admission. Covid-19 assay negative. Has history of ischemic cardiomyopathy, mild systolic CHF with EF of 40-45% - Repeat echo here now with EF 20 - 25%. - Appreciate cardiology consultation - O2 as needed -Was diuresed with IV Lasix-has resolved leg edema, and no further orthopnea or PND -Convert to Lasix 40 mg p.o. once daily upon discharge -follow BMP as an outpatient -continue Toprol XL which was increased to 25mg daily -continue increased dose of lisinopril to 5mg daily -dc hydralazine so more room to adjust CHF meds with less dizziness and hypotension (2) HTN (hypertension): Chronic. BPs stable since increasing Toprol and lisinopril doses after discontinuing hydralazine -continue Lisinopril, Metoprolol - Monitor as an outpatient (3) Hypothyroid: Chronic TSH elevated at 4.62 in 11/2019 -Continue Synthroid at current dose -follow TSH as outpt -would not increase dose in setting of known CAD (4) CAD (coronary artery disease): Chronic. NSTEMI s/p NARCISO x 2 placed on 07/17/19. Patient follows with Dr. Rivera. Was recently on DAPT with Brillinta and ASA - had GIB and ASA was discontinued. -Continue Brillinta, Metoprolol, Lisinopril, Atorvastatin (5) Atrial tachycardia: initially thought to be A-fib but review by Dr. Rivera suspects to be atrial tachycardia -no need for anticoagulation (6) DVT prophylaxis: Lovenox SQ Code - DNR/DNI Dispo -stable for discharge to home Total Time Total Time Spent Total Time Spent (In Minutes): Greater than 30 minutes Total Time Includes: Examination of the Patient, Discharge Planning, Medication Reconciliation and Communication With Other Providers (Cardiology) Discharge Plan Discharge Items Patient Disposition: Home - Self-Care Reason For Visit: COUGH, SOB Discharge Diagnosis: Congestive heart failure, Acute respiratory failure with hypoxia Condition on Discharge: Fair Activity: As commented below Bathing: No limitations Exercise/Sports: Gradually increase as tolerated Weightbearing: Full weightbearing Non-emergency contact: Primary Care Provider and Lead Teller Call non-emergency contact if: you have any medication questions and your symptoms worsen Follow-up/Referrals: Yousuf Rivera DO [Physician] - (Please follow up within 1-2 weeks.) Courtney Naik MD [Primary Care Provider] - (Please follow up within 1-2 weeks.) Diet: Low Sodium (2gm) Fluids: 1800ml (7 cups) Addtl Attending Provider Instructions: Your hydralazine was stopped and your metoprolol and lisinopril doses were increased to help your heart get stronger. Please weight yourself daily and watch your sodium and fluid intake. You will now be taking a daily water pill called lasix along with a potassium replacement pill to keep you from building back up with fluid. Call your Primary Care doctor if any of the following symptoms or problems start or get worse: * Shortness of breath or difficulty breathing * Wake up at night short of breath * Chest pain * Cough * Swelling of your hands, feet, or legs * More fatigued or tired with your normal activity * Palpitations - sudden fast heart beats WEIGHT * Weigh yourself every morning after using the bathroom. * Use the same scale. * Wear the same amount of clothing. * Write your weight down on a chart. * Call your Primary Care doctor if you gain more than 2-3 pounds in 1-2 days. MEDICATIONS * Use this discharge instruction sheet for medication instructions. * Take your medications at the time your doctor ordered. * Do not skip a dose of your medicines. * If you miss a dose of medicine, take it as soon as possible, but DO NOT DOUBLE A DOSE. * Read your medicine information when you get home. * Know all of the side effects of your medicine. If in doubt, ask your pharmacist * Call your Primary Care doctor's office if you have any side effects. * Be sure all of your doctors know what medicine and herbs you take (including cold, flu, and herbal medicine). Take the following with you to your follow-up doctor appointments: * Weight Chart * Medication List * List of questions Do not drink excessive alcohol, beer or wine. Pending Studies at Discharge: No Stand-Alone Forms: My [facility] [employer], Smoking Cessation Medications and DC Order Prescriptions: New lisinopril [Zestril] 5 mg Tablet 5 mg PO QAM Qty: 30 RF: 0 furosemide [Lasix] 40 mg tablet 40 mg PO DAILY Qty: 30 RF: 0 potassium chloride 10 mEq tablet extended release 10 meq PO DAILY Qty: 30 RF: 0 Continued cholecalciferol (vitamin D3) 2,000 unit tablet 4,000 units PO HS RF: 0 fluticasone propion-salmeterol [Wixela Inhub] 250-50 mcg/dose blister with device 1 inh INHALATION BID RF: 0 levothyroxine 50 mcg tablet 50 mcg PO Q OTHER DAY RF: 0 levothyroxine 25 mcg tablet 25 mcg PO Q OTHER DAY RF: 0 Brilinta 90 mg Tablet 90 mg PO BID 30 Days Qty: 60 RF: 3 atorvastatin 40 mg Tablet 80 mg PO QAM 30 Days Qty: 60 RF: 3 Combivent Respimat 20-100 mcg/actuation mist 1 puffs INH Q6H PRN (Reason: cough, wheeze, shortness of breath ) Qty: 4 RF: 0 pantoprazole [Protonix] 40 mg tablet,delayed release (DR/EC) 40 mg PO QAM Qty: 30 RF: 5 ferrous sulfate 325 mg (65 mg iron) tablet 325 mg PO BID Qty: 60 RF: 2 cyanocobalamin (vitamin B-12) 1,000 mcg capsule 1,000 mcg PO DAILY Qty: 30 RF: 11 Changed metoprolol succinate [Toprol XL] 25 mg tablet extended release 24 hr 25 mg PO QAM Qty: 30 RF: 0 Discontinued hydralazine 10 mg tablet 10 mg PO TID RF: 0 lisinopril 2.5 mg Tablet 2.5 mg PO QAM 30 Days Qty: 30 RF: 3 Discharge Orders: Discharge Order (Routine); Ordered 03/01/20 Ordered By: Brionna Mir Admission Data Admit Date/Time: 02/27/20 00:54 Attending Provider: Brionna Mir Admit Provider: Karoline Mcdonald Primary Care Provider: Courtney Naik Other Providers: Titus Polanco ; Josh Christian Other Interventions: Discharge Summary Assessment (RN) Last Done: 03/01/20 14:17 DC Date/Time DO NOT enter until pt leaves facility: 03/01/20 15:06 Coding Level of Care Code D/C Day Management >30 mins Diagnoses Congestive heart failure I50.9 Heart failure chronicity: unspecified Heart failure type: unspecified HTN (hypertension) I10 Hypertension type: essential hypertension Hypothyroid E03.9 CAD (coronary artery disease) I25.10 Associated angina: without angina Coronary Disease-Associated Artery/Lesion type: [place] artery [place] vs. transplanted heart: [place] heart Atrial tachycardia I47.1 DVT prophylaxis Z29.9
== END 2020-03-01 15:06 | disposition home or self-care (01) | DRG 292 ==
LOC: ED 21:55 → 2N 02-27 00:54 → SUATTDRO 02-27 00:54 → 2N 02-27 02:18

== ENCOUNTER 2021-10-05 07:00 | Observation (INO) ==
[2021-10-05] MEDS ORDERED: BUPIVACAINE 0.25% 30 ML VIAL ONE (08:11)
[2021-10-05] MEDS ORDERED: WATER, STERILE FOR INJ 10 ML VIAL ONE (08:11)
[2021-10-05] MEDS ORDERED: VANCOMYCIN HCL 1000MG/20ML VIAL ONE (08:11)
[2021-10-05] MEDS ORDERED: LIDOCAINE 1% LOCAL 20 ML VIAL ONE (08:11)
--- NOTE | 2021-10-05 08:21 | History & Physical Report ---
Date of Service October 05, 2021 Assessment & Plan (1) Left bundle branch block: (2) Congestive heart failure: (3) CAD (coronary artery disease): Plan: 1. Ischemic CM: Persistently low EF. Will plan prophylactic ICD for prevention of SCD. Additionally she has a LBBB on EKG with A qrs DURATION >130MS. Normal sinus rhythm. 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 Will plan BiV device. 2. CHF: Seems well-compensated currently 3. CAD: No current angina or chest pain. History of Present Illness Chief Complaint: dyspnea Primary Care Provider: Courtney Naik MD The patient is a 81 year old woman with a of coronary disease, STEMI and PCI who also has an associated ischemic cardiomyopathy. She has been on guideline directed medical therapy (off and on Entresto and diuretics). She continues to have NYHA class III symptoms. She has an EF of 20-25%. She has an anticipated longevity >1 year and appears to be a good candidate for an ICD as primary prevention of SCD. She has been feeling better since re-starting diuretics. Still dyspneic. No orthopnea. Allergies Allergy/AdvReac Type Severity Reaction Status Date / Time No Known Allergies Allergy Verified 10/05/21 08:18 Home Medications Medication Instructions Recorded Confirmed Type cholecalciferol (vitamin D3) 50 4,000 units PO HS tab 05/26/19 08/29/21 History mcg (2,000 unit) tablet levothyroxine 25 mcg tablet 25 mcg PO Q OTHER DAY 07/17/19 08/29/21 History levothyroxine 50 mcg tablet 50 mcg PO Q OTHER DAY 07/17/19 08/29/21 History atorvastatin 40 mg tablet 80 mg PO QAM 30 Days #60 tab 07/19/19 08/29/21 Rx cyanocobalamin (vitamin B-12) 1,000 mcg PO DAILY #30 cap 11/10/19 08/29/21 Rx 1,000 mcg capsule ipratropium 20 mcg-albuterol 100 1 puffs INH Q6H PRN #4 gm 11/10/19 08/29/21 Rx mcg/actuation mist for inhalation (Combivent Respimat) fluticasone 250 mcg-salmeterol 50 1 inh INHALATION BID 02/26/20 08/29/21 History mcg/dose blistr powdr for inhalation (Wixela Inhub) metoprolol succinate 25 mg 25 mg PO QAM #30 tab 03/01/20 08/29/21 Rx tablet,extended release 24 hr (Toprol XL) ferrous sulfate 1 tab PO DAILY 06/13/20 08/29/21 History furosemide 40 mg tablet 40 mg PO DAILY #90 tab 08/29/21 08/29/21 Rx Past Med/Surg History Medical History Atrial tachycardia CAD (coronary artery disease) HTN (hypertension) Left bundle branch block Surgical History S/P AAA repair Family History Other Hypertension Social History Smoking Status: Former smoker Tobacco Type: Cigarettes Cigarettes Per Day: 5; Second Hand Exposure: Yes; Hx Alcohol Use: Yes Alcohol type: wine Hx Substance Use: No Preferred Language: Yi Communication Ability: Effective Loan And Credit Manager Required: No Beliefs That Will Affect Care: None marital status: Current Living Situation: Spouse Feels Safe at Home: Yes Safety Concerns: Feels Safe At This Time Assistive Devices: Glasses and Oxygen - Continuous Review of Systems Review of Systems: per HPI. Non-productive cough Physical Exam Physical Exam: Alert. Answered all questions appropriately Sclerae anicteric Normal respiratory effort Regular heart rhythm No edema Results & Data Results & Data ([facility]) Vital Signs (Past 12 Hours) Vital Signs Temp Pulse Resp BP Pulse Ox 10/05/21 08:11 36.9 C 97 H 17 107/93 98 (1) Congestive heart failure Heart failure chronicity: unspecified Heart failure type: unspecified Qualified Code(s): I50.9 - Heart failure, unspecified (2) CAD (coronary artery disease) Coronary Disease-Associated Artery/Lesion type: [place] artery [place] vs. transplanted heart: [place] heart Associated angina: without angina Qualified Code(s): I25.10 - Atherosclerotic heart disease of [place] coronary artery without angina pectoris
[2021-10-05] MEDS ORDERED: MIDAZOLAM HCL 5 MG/ML 1 ML VIAL ONE (08:28)
[2021-10-05] MEDS ORDERED: ceFAZolin 330 MG/ML 1 GM VIAL ONE (08:28)
[2021-10-05] MEDS ORDERED: fentaNYL citrate 100 MCG/2 ML VIAL ONE (08:28)
--- NOTE | 2021-10-05 08:38 | Pre Anesthesia Assessment ---
Date of Service October 05, 2021 Pre Sedation Assessment Vital Signs Temp Pulse Resp BP Pulse Ox 10/05/21 08:11 36.9 C 97 H 17 107/93 98 Cardiovascular + regular rate and + regular rhythm Respiratory + respiratory effort normal Pre-Sedation Airway Assessment Smoking Status: Former smoker Hx Sleep Apnea: No Hx Difficult Intubation: No Short, Thick Neck: No Thyromental Distance: > or= 3.5 Finger Breadths Oral Cavity: + Dentures Mallampati Class: III ASA: ASA3 NPO Status Date of Last Intake of Fluids: 10/04/21 Date of Last Intake of Solid Food: 10/04/21 Procedure Planning Contraindications for Sedation: none Current Medications Reviewed: Yes Notes The planned sedation has been discussed with the patient. Informed Consent was obtained. I have identified the patient, determined the appropriateness of sedation and have assessed the patient immediately prior to the procedure. All medicine(s) and interventions are by my order.
[2021-10-05 09:01] LABS: Basophils # (auto) 0.04 K/uL (0-0.2); Basophils % (auto) 0.5 %; Eosinophils # (auto) 0.16 K/uL (0-0.5); Eosinophils % (auto) 2.1 %; Hematocrit (blood only) 42.9 % (37-47); Hemoglobin 14.6 g/dL (12.0-16.0); Immature Granulocytes # (auto) 0.01 K/uL (0.00-0.02); Immature Granulocytes % (auto) 0.1 %; Lymphocytes # (auto) 1.09 K/uL (1.2-3.4); Lymphocytes % (auto) 14.4 %; Mean Corpuscular Volume 97.1 fL (80-100); Mean Platelet Volume 10.7 fL (7.4-10.4); Monocytes # (auto) 0.41 K/uL (0.11-0.59); Monocytes % (auto) 5.4 %; Neutrophils # (auto) 5.86 K/uL (1.4-6.5); Neutrophils % (auto) 77.5 %; Platelet Count 234 K/uL (130-400); RDW Coefficient of Variation 14.6 % (11.5-14.5); RDW Standard Deviation 51.9 fL (36.4-46.3); Red Blood Count 4.42 M/uL (4.2-5.4); White Blood Count 7.57 K/uL (4.8-10.8)
[2021-10-05 09:27] LABS: Creatinine Clr Calc Pharmacy 37.2 ml/min; Est GFR (African American) 58.5 ml/min; Est GFR (Non-African American) 50.5 ml/min; Potassium 3.9 mmol/L (3.5-5.1)
--- NOTE | 2021-10-05 10:52 | Electrophysiology Report ---
Date of Service October 05, 2021 Electrophysiology Procedure Electrophysiology Procedure Report Procedure performed: Implantation of biventricular ICD Staff specimen collector: Robert Christian MD Indication: The patient is a 81-year-old woman with a history of coronary artery disease who has an ischemic cardiomyopathy. She has an ejection fraction of 20 to 25%. She has been on guideline directed medical therapy. She has not suffered a myocardial infarction in the past 45 days or had any revascularization in the last 90 days. She has [place] Heart Association class III symptoms. She has an anticipated longevity greater than 1 year. Based on these factors she was felt to be a good candidate for an ICD as primary prevention against sudden cardiac . Additionally, the patient has a left bundle branch block QRS morphology on her EKG with a duration greater than 130 ms. 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 Procedure in detail: The patient was informed of the risks benefits and alternatives to the intended procedure and she wished to proceed. She was taken to the electrophysiology suite in a fasting state. A preoperative antibiotic had been administered. The patient was monitored electrocardiographically throughout today's procedure and conscious sedation was administered per protocol. The left upper pectoral area is prepped and draped in usual sterile fashion. This area was anesthetized using subcutaneous administration of a xylocaine solution. An incision was made at this site and carried down to the prepectoralis fascia using sharp dissection. Electrocautery was also employed for dissection as well as for hemostasis. A device pocket was fashioned tissues above the pectoralis muscle. Subsequent to this maneuver Limited left axillary venography was performed in order to identify the target vessel. A micropuncture needle was employed in order to access the left axillary vein. Sheaths were placed over guidewires at this site and used to facilitate passage of the pacing leads. Pacing leads were advanced under fluoroscopic guidance to the respective chambers. This initially included left ventricular and right atrial leads. Adequate sensing and threshold parameters were obtained prior to active fixation of the leads to the endocardial surface. The proximal portions of the leads were then sutured the prepectoralis fascia using nonabsorbable suture. A guiding catheter was then advanced through a third sheath. This guiding catheter was used to engage the coronary sinus. Limited coronary sinus venography was then performed in order to identify a suitable target vessel. Once identified standard guidewire techniques were employed in order to deliver the coronary sinus lead to the target vessel. Adequate sensing and threshold parameters as well as the absence of diaphragmatic stimulation at high output were confirmed prior to removal of the guiding sheath. The proximal portion of this lead was then sutured to the prepectoralis fascia using nonabsorbable suture. The device pocket was irrigated with antibiotic solution. The leads were then attached to the device. The device and leads were then placed in the pocket and pocket was closed in 3 layers of absorbable suture. Steri-Strips and sterile dressing were applied. The device was tested noninvasively prior to conclusion the procedure. The patient tolerated procedure well there no immediate complications. Equipment used: New pulse generator: Turret Punch Press Operator [employer]. Model number: [id number] serial number [id number] Right atrial lead: Turret Punch Press Operator Medtronic. Model number: [id number] serial number [id number] Right ventricular lead: Turret Punch Press Operator Medtronic. Model number: 6935M serial number [id number] Coronary sinus lead: Turret Punch Press Operator Medtronic: Model #4298 serial number [id number] Measured data: Right atrial lead: P waves measured 4.3 mV. Pacing threshold was 0.75 V at 0.4 ms with a pacing impedance of 456 ohms Right ventricular lead: R waves measured 3.3 mV. Pacing threshold is 0.5 V at 0.4 ms with a pacing impedance of 532 ohms Left ventricular lead: Pacing threshold is 1 V at 0.4 ms a pacing impedance of 399 ohms in the LV 3 to RV coil configuration Impression: Successful implantation of biventricular ICD MNPG Electrophysiology codes Pacing Procedure 1: Pacin BiV electrode w/Pacer / ICD implant, add on code ICD Procedure 1: ICD: 84228 Insert single or dual ICD system PG Moderate Sedation Codes Moderate Sedation Codes Procedure 1: Sedation/Anesthesia: 72824 Mod Sedation by the same physician;Init15 Min C hild Age 5 & Up Procedure 2: Sedation/Anesthesia: 13609 Mod Sedation by the same physician; Ea [id number] Minutes
--- NOTE | 2021-10-05 10:52 | Post Anesthesia Assessment ---
Date of Service October 05, 2021 Post Sedation Assessment Vital Signs Temp Pulse Resp BP Pulse Ox 10/05/21 08:11 36.9 C 97 H 17 107/93 98 Recovery Score Activity: Moves 4 extremities Respiration: Deep Breath/Cough Circulation: +/-20% PreAnes Value Consciousness: Arouseable (by name) Oxygen Saturation: O2 needed for >90% Discharge Sedation Level of Care: Fast Track Phase II Post Sedation Plan On clinical assessment, the patient appears to have tolerated the sedation without complications. Patient is recovering as anticipated. Patient will continue to be monitored by nursing and may be discharged when sedation discharge criteria are met per below protocol. Upon Completions of procedure up to 15 minutes continue every 5 minute vital signs and the P.A.R. score; then discharge to a Phase I or Fast Track to Phase II per the following guidelines: * Discharge Patient to appropriate Phase II area if PAR is 8 or greater or return to pre- procedure baseline. The post - procedure orders will be as directed. * If PAR score is less than 8 or not return to pre-procedure baseline then patient will follow Phase I monitoring till PAR is reached for Phase II. The Phase I may be done in procedure room or may call to secure a Phase I area. * If naloxone or flumazenil are used for reversal, hold in Phase I for continued monitoring from when last reversal dose was given for a minimum of 60 minutes or longer pending the nurse and/or physician discretion of patient condition before discharge to Phase II. Please call the Sedation Physician to re-evaluate and complete post-note for discharge to Phase II area. Do NOT discharge from procedure sedation or Phase 1 until post- sedation evaluation note is complete by procedure /sedation MD Sedation Discharge Instructions to be given to the patient at discharge to home.
[2021-10-05] MEDS ORDERED: ACETAMINOPHEN 325 MG TAB PO PRN (10:55)
[2021-10-05] MEDS ORDERED: oxyCODONE HCL IR 5 MG TAB (IMMEDIATE RELEASE) PO PRN (10:55)
[2021-10-05] MEDS ORDERED: IPRATROPIUM BROMIDE/ALBUTEROL respimat INH INH PRN (11:11)
[2021-10-05] MEDS ORDERED: ALBUTEROL HFA 8 GM INHALER INH PRN (12:51)
[2021-10-05] MEDS ORDERED: IPRATROPIUM BROMIDE HFA INHALER INH PRN (12:51)
[2021-10-05] MEDS ORDERED: LEVOTHYROXINE SODIUM 50 MCG TABLET PO SCH (14:00)
--- NOTE | 2021-10-05 14:55 | XRay Report ---
XR chest 1V portable HISTORY: upright. r/o pneumothorax s/p ICD. no lifting left arm COMPARISON: Chest 08/02/2021. FINDINGS: Interval placement left-sided pacemaker/defibrillator. No pneumothorax. The cardiac silhoue tte is mildly enlarged. There is diffuse interstitial/vascular thickening and trace bilateral pleural effusions consistent with mild pulmonary edema. This is similar to the prior study. The leads appear intact. IMPRESSION: 1. Status post left-sided pacemaker/defibrillator. No pneumothorax. 2. Mild interstitial pulmonary edema, cardiomegaly, and trace bilateral pleural effusions. ACT 112: Negative or not required by law. Electronically signed by: Jarocho Vazquez M.D. 10/05/2021 2:54 PM
[2021-10-05] MEDS ORDERED: FUROSEMIDE 40 MG TAB PO ONE (16:50)
[2021-10-05] MEDS ORDERED: METOPROLOL SUCC 25MG EXT REL TAB PO ONE (16:50)
[2021-10-05] MEDS ORDERED: ZOLPIDEM TARTRATE 5 MG TAB PO PRN (16:52)
[2021-10-05] MEDS: ceFAZolin 1000MG 1,000 MG/7.5 ML SYR IV SCH (19:35)
[2021-10-05] MEDS ORDERED: FLUTICASONE/VILANTEROL 200/25MCG 14 PUFFS/INHALER INH SCH (21:00)
[2021-10-05] MEDS ORDERED: CHOLECALCIFEROL 1,000 UNITS 25 MCG TAB PO SCH (21:00)
[2021-10-06] MEDS: ceFAZolin 1000MG 1,000 MG/7.5 ML SYR IV SCH (03:56)
[2021-10-06] MEDS ORDERED: LEVOTHYROXINE SODIUM 25 MCG TABLET PO SCH (06:30)
--- NOTE | 2021-10-06 06:53 | Electrocardiogram Report ---
Test Reason : Blood Pressure : / mmHG Vent. Rate : 083 BPM Atrial Rate : 083 BPM P-R Int : 126 ms QRS Dur : 128 ms QT Int : 438 ms P-R-T Axes : 082 -82 105 degrees QTc Int : 514 ms Atrial-sensed ventricular-paced rhythm Biventricular pacemaker detected Abnormal ECG When compared with ECG of 26-FEB-2020 22:04, Ventricular pacing is now present Confirmed by Daniel Levin ([id number]) on 10/06/2021 6:52:46 AM Referred By: Shila Che Confirmed By:Daniel Levin
[2021-10-06] MEDS ORDERED: FUROSEMIDE 40 MG TAB PO SCH (09:00)
[2021-10-06] MEDS ORDERED: ATORVASTATIN 40 MG TAB PO SCH (09:00)
[2021-10-06] MEDS ORDERED: METOPROLOL SUCC 25MG EXT REL TAB PO SCH (09:00)
[2021-10-06] MEDS ORDERED: FERROUS SULFATE 325 MG TAB PO SCH (09:00)
[2021-10-06] MEDS ORDERED: CYANOCOBALAMIN (B-12) 500 MCG TABLET PO SCH (09:00)
--- NOTE | 2021-10-06 10:49 | XRay Report ---
TWO VIEW CHEST CLINICAL HISTORY: Pacemaker implantation.. FINDINGS: PA and lateral chest radiographs are compared to study dated 10/05/2021 and correlated with c hest CT dated 11/09/2019. A 3-lead cardiac AICD is in place and largely obscures the left upper chest. Leads project over the right atrial appendage, the right ventricle, and the coronary sinus. The heart is enlarged noting atherosclerotic calcification of the thoracic aorta. The pulmonary vasculature is noncongested. Chronic interstitial thickening is similar to previous. There is bibasilar scarring/at electasis. No airspace consolidation or pleural effusion is identified. There is no pneumothorax. The skeletal structures are osteopenic. The bony thorax appears intact. Surgical clips are noted in the upper abdomen. IMPRESSION: 1. A 3-lead cardiac AICD is in place as above. No pneumothorax is identified post procedure. 2. Cardiomegaly without radiographic evidence of congestive failure. 3. There is no airspace consolidation or pleural effusion identified. ACT 112: Negative or not required by law. Electronically signed by: Shady Booker M.D. 10/06/2021 10:48 AM
--- NOTE | 2021-10-06 11:38 | Discharge Summary ---
Date of Service October 06, 2021 Admission HPI Per Admitting Provider The patient is a 81 year old woman with a of coronary disease, STEMI and PCI who also has an associated ischemic cardiomyopathy. She has been on guideline directed medical therapy (off and on Entresto and diuretics). She continues to have NYHA class III symptoms. She has an EF of 20-25%. She has an anticipated longevity >1 year and appears to be a good candidate for an ICD as primary prevention of SCD. She has been feeling better since re-starting diuretics. Still dyspneic. No orthopnea. Principal Diagnosis cardiomyopathy Discharge Exam on the day of discharge the device implant site was free of drainage. No significant erythema. No hematoma. Discharge Data Allergies Allergy/AdvReac Type Severity Reaction Status Date / Time No Known Allergies Allergy Verified 10/05/21 08:18 Procedures Performed Operation Date: 10/05/21 09:00 Actual Procedures p ICD Insertion Single or Dual - Robert Christian MD s Lead LV (No Priopr Implant) - Robert Christian MD s Venogram, Bilateral - Robert Christian MD Ordered Studies 10/05/21 07:06 CL Cath Imgs for PACS use only Routine 10/05/21 07:30 EP Lab Images for PACS ONCE Hospital Course (1) Left bundle branch block: (2) Congestive heart failure: (3) CAD (coronary artery disease): On the day of admission the patient underwent implantation of a biventricular ICD. The procedure was uncomplicated. The following morning chest x-ray demonstrated stable lead position without pneumothorax. A device interrogation revealed good function on all leads. Wound evaluation did not reveal any complication, evidence of infection or hematoma. Patient was ambulatory and felt stable for discharge. Total Time Total Time Spent Total Time Spent (In Minutes): 20 Total Time Includes: Examination of the Patient, Discharge Planning, Medication Reconciliation and Other Discharge Plan Discharge Items Patient Disposition: Home - Self-Care Reason For Visit: Ischemic Cardiomyopathy Discharge Diagnosis: Cardiomyopathy Condition on Discharge: Good Activity: Per Instructions section Activity Comment: No lifting left arma vilma shoulder or behind neck for 6 weeks Lifting: No more than 10 pounds Bathing: Keep incision dry Bathing Comment: Keep wound dry and steri-strip intact until fu Driving/Machine Use: No limitations Non-emergency contact: Digital Editor Call non-emergency contact if: you have any medication questions, your symptoms worsen, you have a fever, your wound has increased redness, your wound has increased drainage and your wound pain has increased Follow-up/Referrals: Courtney Naik MD [Primary Care Provider] - Diet: Heart Healthy Addtl Attending Provider Instructions: none Pending Studies at Discharge: No Stand-Alone Forms: My [facility] [employer], Smoking Cessation Medications and DC Order Prescriptions: Continued cholecalciferol (vitamin D3) 2,000 unit tablet 4,000 units PO HS RF: 0 ferrous sulfate 1 tab PO DAILY RF: 0 furosemide 40 mg tablet 40 mg PO DAILY Qty: 90 RF: 3 fluticasone propion-salmeterol [Wixela Inhub] 250-50 mcg/dose blister with device 1 inh INHALATION BID RF: 0 metoprolol succinate [Toprol XL] 25 mg tablet extended release 24 hr 25 mg PO QAM Qty: 30 RF: 0 levothyroxine 50 mcg tablet 50 mcg PO Q OTHER DAY RF: 0 levothyroxine 25 mcg tablet 25 mcg PO Q OTHER DAY RF: 0 atorvastatin 40 mg Tablet 80 mg PO QAM 30 Days Qty: 60 RF: 3 Combivent Respimat 20-100 mcg/actuation mist 1 puffs INH Q6H PRN (Reason: cough, wheeze, shortness of breath ) Qty: 4 RF: 0 cyanocobalamin (vitamin B-12) 1,000 mcg capsule 1,000 mcg PO DAILY Qty: 30 RF: 11 Discharge Orders: Discharge Order (Routine); Ordered 10/06/21 Ordered By: Robert Christian Admission Data Admit Date/Time: 10/05/21 07:05 Attending Provider: Robert Christian Admit Provider: Robert Christian Primary Care Provider: Courtney Naik Other Interventions: Discharge Summary Assessment (RN) Last Done: 10/06/21 12:04 Coding Level of Care Code 15174 OBS Care - Discharge Diagnoses Left bundle branch block I44.7 Congestive heart failure I50.9 Heart failure chronicity: unspecified Heart failure type: unspecified CAD (coronary artery disease) I25.10 Associated angina: without angina Coronary Disease-Associated Artery/Lesion type: [place] artery [place] vs. transplanted heart: [place] heart
== END 2021-10-06 12:40 | disposition home or self-care (01) ==
LOC: 2S 07:54 → EP 07:54 → 2S 15:57
PROC: EPB.ICD (2021-10-05 09:00)

== ENCOUNTER 2022-12-02 17:22 | Inpatient (IN) ==
--- NOTE | 2022-12-02 18:08 | Emergency Department Note ---
Impression & Plan Pulmonary edema, Elevated troponin I level, ANDRADE (dyspnea on exertion) ED Provider Note NAME: BREONNA BRITO AGE: 82 SEX: F : 1940 ARRIVES VIA: Ambulance INFORMANT: Patient, ED PROVIDER(S): Tim Carty DO CHIEF COMPLAINT: Difficulty breathing HPI: The patient is an 82-year-old female who presented to the emergency department for an evaluation of difficulty breathing. Apparently patient's been having difficulty breathing over the course the last few days. She states her symptoms became much worse overnight last night. She had another episode today with exertion so she called 911 and arrived via ambulance. The patient was on oxygen when I evaluated her. She states that she feels somewhat improved at this time at rest. She has a history of CHF. She states that those symptoms felt similar to today but today appears to be worse according to her. She denies having any hemoptysis but has had a productive cough. She denies have any lower extremity swelling. She states that she is also had some orthopnea. ROS: See above HPI for pertinent positives & negatives. A total of 10 systems reviewed and were otherwise negative. PAST MEDICAL HISTORY: See Below PAST SURGICAL HISTORY: See Below FAMILY HISTORY: See Below SOCIAL HISTORY: See Below HOME MEDICATIONS: See Below ALLERGIES: See Below VITALS: See Below PHYSICAL EXAMINATION: GENERAL: Patient is awake alert in no acute distress patient is resting comfortably and showing no signs of anxiety EYES: The conjunctivae are clear. The pupils are round and reactive. EARS, NOSE, MOUTH AND THROAT: The nose is without any evidence of any deformity. Mucous membranes are moist. Tongue is midline. NECK: The neck is nontender and supple. HJR was noted on exam RESPIRATORY: Diminished breath sounds are noted in the right lung field. There were rales at the left base. There was mild conversational dyspnea CARDIOVASCULAR: Regular rate and rhythm noted there no murmurs rubs or gallops normal S1 normal S2. GASTROINTESTINAL: The abdomen is soft. Abdomen is nontender. MUSCULOSKELETAL/EXTREMITIES: There is no evidence of gross deformity full range of motion is noted in the hips and shoulders. SKIN: The skin is warm and dry. There is no significant pedal edema or calf tenderness. NEUROLOGIC: Patient is awake alert and oriented x3 MEDICAL DECISION MAKING: The patient is an 82-year-old female who presented to the emergency department for evaluation of shortness of breath by ambulance. The patient was not reported to be hypoxic but she was on supplemental oxygen upon arrival. She felt much better on supplemental oxygen. She has very abnormal lung sounds. She does have a cardiac history including CHF as well as pacemaker. EKG showed no change from previous however her troponin was elevated. Her BNP was also elevated. Chest x-ray appears to be consistent with pulmonary edema. She does have a productive cough. For this reason blood cultures were obtained but I do not feel this is secondary to a pulmonary infection given the patient's laboratory studies. She has no fever. White blood cell count was normal. The patient's blood pressure was also borderline. I was not able to give the patient Lasix at this time. I discussed the patient's condition with her. I discussed patient's condition with the on-call [facility] hospitalist. They have agreed to evaluate the patient in the emergency department for further management and disposition. Triage Nursing notes reviewed. Prior medical records reviewed Vital Signs: reviewed and remarkable for tachypnea. Differential diagnosis: Reactive airway disease, pneumonia, pneumothorax, COPD, CHF, infections, cardiac ischemia, pulmonary embolism, musculoskeletal, gastrointestinal, as well as other pathologies. ER treatment provided: See below Diagnostics interpreted by me: ECG: EKG was obtained in the emergency department. My interpretation is atrial sensed rhythm with ventricular pacing at 79 bpm. PVC was noted. There were no [place] beats appreciated. This was compared to a tracing from October 05, 2021. No changes were noted. Cardiac Monitoring: An order was placed for continuous cardiac monitoring. The monitor shows a rate of 83 bpm with pacemaker rhythm. Laboratory studies: As stated above and show below. Imaging studies: See below. Radiographic imaging was reviewed by myself Consultation(s): I discussed this case with Dr. Crouch who is on-call for the [facility]. 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 Beliefs That Will Affect Care: None marital status: Current Living Situation: Spouse How many Children do You have: 2 Other Information That Helps Us Care for You: No Feels Safe at Home: Yes Safety Concerns: Feels Safe At This Time Assistive Devices: None Allergies Allergies Allergy/AdvReac Type Severity Reaction Status Date / Time azithromycin [From Zithromax] Allergy Anaphylaxis Verified 12/02/22 23:05 Home Meds Home Medications Medication Instructions Recorded Confirmed levothyroxine 25 mcg tablet 25 mcg PO Q OTHER DAY 07/17/19 12/02/22 levothyroxine 50 mcg tablet 50 mcg PO Q OTHER DAY 07/17/19 12/02/22 fluticasone 250 mcg-salmeterol 50 1 inh inhalation BID 02/26/20 12/02/22 mcg/dose blistr powdr for inhalation (Wixela Inhub) atorvastatin 80 mg tablet 80 mg PO QAM 12/02/22 12/02/22 cholecalciferol (vitamin D3) 25 25 mcg PO DAILY 12/02/22 12/02/22 mcg (1,000 unit) tablet (Vitamin D3) cyclobenzaprine 10 mg tablet 10 mg PO BID PRN Muscle Spasm 12/02/22 12/02/22 ferrous sulfate 325 mg (65 mg 325 mg PO DAILY 12/02/22 12/02/22 iron) tablet pantoprazole 40 mg tablet,delayed 40 mg PO DAILY 12/02/22 12/02/22 release sacubitril 49 mg-valsartan 51 mg 1 tab PO BID 12/02/22 12/02/22 tablet (Entresto) tiotropium bromide 18 mcg capsule 1 cap inhalation DAILY 12/02/22 12/02/22 with inhalation device (Spiriva with HandiHaler) Previous Rx's Medication Instructions Recorded cyanocobalamin (vitamin B-12) 1,000 mcg PO DAILY #30 caps 11/10/19 1,000 mcg capsule ipratropium 20 mcg-albuterol 100 1 puffs inhalation Q6H PRN cough, 11/10/19 mcg/actuation mist for inhalation wheeze, shortness of breath #4 (Combivent Respimat) grams metoprolol succinate 25 mg 25 mg PO QAM #30 tabs 03/01/20 tablet,extended release 24 hr (Toprol XL) Results & Data (ED) Vital Signs Vital Signs - 24 hr 12/02/22 17:30 12/02/22 17:39 12/02/22 17:30 Temperature 36.4 C L Temperature Source Oral Pulse Rate 79 78 Pulse Rate from SpO2 Sensor Pulse Rhythm Regular Pulse Strength Normal Respiratory Rate 24 Respiratory Effort / Characteristics Spontaneous Non-Labored Spontaneous Respiratory Depth Normal Normal Respiratory Pattern Regular Regular Blood Pressure 100/74 Blood Pressure Mean 82 Blood Pressure Position Lying Pulse Oximetry 99 Oxygen Delivery Method Room Air Room Air Oxygen Flow Rate Sepsis Recent Fever Within 48 Hours No Sepsis New/Unexplained Change in Mental Status N/A Sepsis Action Taken by Nursing No Action Required 12/02/22 17:30 12/02/22 18:00 12/02/22 18:30 Temperature Temperature Source Pulse Rate 78 78 Pulse Rate from SpO2 Sensor 79 Pulse Rhythm Pulse Strength Respiratory Rate 25 H 22 Respiratory Effort / Characteristics Respiratory Depth Respiratory Pattern Blood Pressure 133/51 L 93/73 L Blood Pressure Mean 78 79 Blood Pressure Position Pulse Oximetry 99 98 99 Oxygen Delivery Method Room Air Room Air Oxygen Flow Rate Sepsis Recent Fever Within 48 Hours Sepsis New/Unexplained Change in Mental Status Sepsis Action Taken by Nursing 12/02/22 19:00 12/02/22 19:30 12/02/22 20:00 Temperature Temperature Source Pulse Rate 77 83 83 Pulse Rate from SpO2 Sensor 77 83 83 Pulse Rhythm Pulse Strength Respiratory Rate 24 25 H 26 H Respiratory Effort / Characteristics Respiratory Depth Respiratory Pattern Blood Pressure 106/77 101/69 93/67 L Blood Pressure Mean 86 79 75 Blood Pressure Position Pulse Oximetry 100 100 100 Oxygen Delivery Method Nasal Cannula Nasal Cannula Nasal Cannula Oxygen Flow Rate 2 2 2 Sepsis Recent Fever Within 48 Hours Sepsis New/Unexplained Change in Mental Status Sepsis Action Taken by Nursing 12/02/22 21:00 12/02/22 21:33 12/02/22 20:30 Temperature Temperature Source Pulse Rate 86 82 85 Pulse Rate from SpO2 Sensor 80 Pulse Rhythm Pulse Strength Respiratory Rate 23 26 H Respiratory Effort / Characteristics Respiratory Depth Respiratory Pattern Blood Pressure 138/99 89/61 L Blood Pressure Mean 112 70 Blood Pressure Position Pulse Oximetry 99 98 Oxygen Delivery Method Nasal Cannula Nasal Cannula Oxygen Flow Rate 2 2 Sepsis Recent Fever Within 48 Hours Sepsis New/Unexplained Change in Mental Status Sepsis Action Taken by Nursing 12/02/22 20:48 12/02/22 21:21 Temperature Temperature Source Pulse Rate 83 88 Pulse Rate from SpO2 Sensor Pulse Rhythm Pulse Strength Respiratory Rate 22 24 Respiratory Effort / Characteristics Respiratory Depth Respiratory Pattern Blood Pressure 92/64 L 138/99 Blood Pressure Mean 73 112 Blood Pressure Position Pulse Oximetry 98 98 Oxygen Delivery Method Nasal Cannula Nasal Cannula Oxygen Flow Rate 2 2 Sepsis Recent Fever Within 48 Hours Sepsis New/Unexplained Change in Mental Status Sepsis Action Taken by [facility] Medications Current Medication List: was personally reviewed by me Laboratory Data Attestation: I reviewed the patient's lab results. 12/02/22 18:11 12/02/22 18:11 Lab Results 12/02/22 12/02/22 12/02/22 Range/Units 17:57 18:11 18:11 WBC 8.52 (4.8-10.8) K/ul RBC 4.20 (4.20-5.40) M/uL Hgb 13.4 (12.0-16.0) g/dl Hct 38.5 (37.0-47.0) % MCV 91.7 (80.0-100.0) fL MCH 31.9 (25.0-34.0) pg MCHC 34.8 (32.0-36.0) g/dL RDW Std Deviation 46.7 H (36.4-46.3) fL RDW Coeff of Vanessa 13.8 (11.5-14.5) % Plt Count 166 (130-400) K/uL MPV 10.8 (9.4-12.4) fL Immature Gran % (Auto) 0.4 % Neut % (Auto) 81.8 % Lymph % (Auto) 10.3 % [place] % (Auto) 5.8 % Eos % (Auto) 1.2 % Baso % (Auto) 0.5 % Neut # (Auto) 6.98 H (1.40-6.50) K/uL Lymph # (Auto) 0.88 L (1.2-3.4) K/uL [place] # (Auto) 0.49 (0.11-0.59) K/uL Eos # (Auto) 0.10 (0-0.50) K/uL Baso # (Auto) 0.04 (0-0.2) K/uL Immature Gran # (Auto) 0.03 (0.01-0.20) K/uL PT 10.1 (9.0-12.0) Seconds INR 0.9 (0.9-1.1) APTT 28.0 (21.0-31.0) Seconds PTT Ratio 1.0 VBG pH (7.36-7.41) VBG pCO2 (38-50) mmHg VBG pO2 mmHg VBG HCO3 mmol/L VBG O2 Saturation % VBG Base Excess mEq/L Sodium (136-145) mmol/L Potassium (3.5-5.1) mmol/L Chloride (98-107) mmol/L Carbon Dioxide (21-32) mmol/L Anion Gap (3-11) BUN (6-23) mg/dl Creatinine (0.6-1.2) mg/dl Est Cr Clr Drug Dosing ml/min Est GFR ( Amer) ml/min Est GFR (Non-Af Amer) ml/min BUN/Creatinine Ratio (10-20) Glucose (70-99(Fasting)) mg/dl Lactate 1.4 (0.4-2.0) mmol/L Calcium (8.6-10.3) mg/dl Magnesium (1.7-2.4) mg/dl Total Bilirubin (0.2-1.0) mg/dl AST (13-39) U/L ALT (7-52) U/L Alkaline Phosphatase (34-104) U/L Troponin I High Sens (0-14) pg/ml B-Natriuretic Peptide (0-100) pg/ml Total Protein (6.0-8.3) gm/dl Albumin (3.4-5.0) gm/dl Globulin (2.5-4.0) gm/dl Albumin/Globulin Ratio (0.9-2) Procalcitonin (0-0.5) ng/ml Urine Color Urine Appearance (Clear) Urine pH (4.5-7.5) Ur Specific [place] (1.000-1.030) Urine Protein (Negative) Urine Glucose (UA) (Negative) Urine Ketones (Negative) Urine Blood (Negative) Urine Nitrite (Negative) Urine Bilirubin (Negative) Urine Urobilinogen (Negative) Ur Leukocyte Esterase (Negative) Urine WBC (Auto) (0-5) /hpf Urine RBC (Auto) (0-4) /hpf U Hyaline Cast (Auto) (0-5) /lpf U Epithel Cells (Auto) (0-5) /lpf Urine Bacteria (Auto) (Negative) SARS-CoV-2 (PCR) (Negative) Influenza Type A (PCR) (Neg) Influenza Type B (PCR) (Neg) RSV (RT-PCR) (Neg) 12/02/22 12/02/22 12/02/22 Range/Units 18:11 18:11 18:20 WBC (4.8-10.8) K/ul RBC (4.20-5.40) M/uL Hgb (12.0-16.0) g/dl Hct (37.0-47.0) % MCV (80.0-100.0) fL MCH (25.0-34.0) pg MCHC (32.0-36.0) g/dL RDW Std Deviation (36.4-46.3) fL RDW Coeff of Vanessa (11.5-14.5) % Plt Count (130-400) K/uL MPV (9.4-12.4) fL Immature Gran % (Auto) % Neut % (Auto) % Lymph % (Auto) % [place] % (Auto) % Eos % (Auto) % Baso % (Auto) % Neut # (Auto) (1.40-6.50) K/uL Lymph # (Auto) (1.2-3.4) K/uL [place] # (Auto) (0.11-0.59) K/uL Eos # (Auto) (0-0.50) K/uL Baso # (Auto) (0-0.2) K/uL Immature Gran # (Auto) (0.01-0.20) K/uL PT (9.0-12.0) Seconds INR (0.9-1.1) APTT (21.0-31.0) Seconds PTT Ratio VBG pH (7.36-7.41) VBG pCO2 (38-50) mmHg VBG pO2 mmHg VBG HCO3 mmol/L VBG O2 Saturation % VBG Base Excess mEq/L Sodium 136 (136-145) mmol/L Potassium 3.8 (3.5-5.1) mmol/L Chloride 104 (98-107) mmol/L Carbon Dioxide 26 (21-32) mmol/L Anion Gap 6 (3-11) BUN 20 (6-23) mg/dl Creatinine 1.08 (0.6-1.2) mg/dl Est Cr Clr Drug Dosing 34.1 ml/min Est GFR ( Amer) 56.1 ml/min Est GFR (Non-Af Amer) 48.4 ml/min BUN/Creatinine Ratio 18.5 (10-20) Glucose 114 H (70-99(Fasting)) mg/dl Lactate (0.4-2.0) mmol/L Calcium 9.0 (8.6-10.3) mg/dl Magnesium 1.6 L (1.7-2.4) mg/dl Total Bilirubin 0.8 (0.2-1.0) mg/dl AST 18 (13-39) U/L ALT 11 (7-52) U/L Alkaline Phosphatase 141 H (34-104) U/L Troponin I High Sens 76.2 H* (0-14) pg/ml B-Natriuretic Peptide > 4700 H (0-100) pg/ml Total Protein 6.8 (6.0-8.3) gm/dl Albumin 3.5 (3.4-5.0) gm/dl Globulin 3.3 (2.5-4.0) gm/dl Albumin/Globulin Ratio 1.1 (0.9-2) Procalcitonin (0-0.5) ng/ml Urine Color Urine Appearance (Clear) Urine pH (4.5-7.5) Ur Specific [place] (1.000-1.030) Urine Protein (Negative) Urine Glucose (UA) (Negative) Urine Ketones (Negative) Urine Blood (Negative) Urine Nitrite (Negative) Urine Bilirubin (Negative) Urine Urobilinogen (Negative) Ur Leukocyte Esterase (Negative) Urine WBC (Auto) (0-5) /hpf Urine RBC (Auto) (0-4) /hpf U Hyaline Cast (Auto) (0-5) /lpf U Epithel Cells (Auto) (0-5) /lpf Urine Bacteria (Auto) (Negative) SARS-CoV-2 (PCR) NEGATIVE (Negative) Influenza Type A (PCR) Negative (Neg) Influenza Type B (PCR) Negative (Neg) RSV (RT-PCR) Negative (Neg) 12/02/22 12/02/22 12/02/22 Range/Units 18:20 18:42 20:49 WBC (4.8-10.8) K/ul RBC (4.20-5.40) M/uL Hgb (12.0-16.0) g/dl Hct (37.0-47.0) % MCV (80.0-100.0) fL MCH (25.0-34.0) pg MCHC (32.0-36.0) g/dL RDW Std Deviation (36.4-46.3) fL RDW Coeff of Vanessa (11.5-14.5) % Plt Count (130-400) K/uL MPV (9.4-12.4) fL Immature Gran % (Auto) % Neut % (Auto) % Lymph % (Auto) % [place] % (Auto) % Eos % (Auto) % Baso % (Auto) % Neut # (Auto) (1.40-6.50) K/uL Lymph # (Auto) (1.2-3.4) K/uL [place] # (Auto) (0.11-0.59) K/uL Eos # (Auto) (0-0.50) K/uL Baso # (Auto) (0-0.2) K/uL Immature Gran # (Auto) (0.01-0.20) K/uL PT (9.0-12.0) Seconds INR (0.9-1.1) APTT (21.0-31.0) Seconds PTT Ratio VBG pH 7.43 H (7.36-7.41) VBG pCO2 33 L (38-50) mmHg VBG pO2 53 mmHg VBG HCO3 22 mmol/L VBG O2 Saturation 85.4 % VBG Base Excess -1.7 mEq/L Sodium (136-145) mmol/L Potassium (3.5-5.1) mmol/L Chloride (98-107) mmol/L Carbon Dioxide (21-32) mmol/L Anion Gap (3-11) BUN (6-23) mg/dl Creatinine (0.6-1.2) mg/dl Est Cr Clr Drug Dosing ml/min Est GFR ( Amer) ml/min Est GFR (Non-Af Amer) ml/min BUN/Creatinine Ratio (10-20) Glucose (70-99(Fasting)) mg/dl Lactate (0.4-2.0) mmol/L Calcium (8.6-10.3) mg/dl Magnesium (1.7-2.4) mg/dl Total Bilirubin (0.2-1.0) mg/dl AST (13-39) U/L ALT (7-52) U/L Alkaline Phosphatase (34-104) U/L Troponin I High Sens (0-14) pg/ml B-Natriuretic Peptide (0-100) pg/ml Total Protein (6.0-8.3) gm/dl Albumin (3.4-5.0) gm/dl Globulin (2.5-4.0) gm/dl Albumin/Globulin Ratio (0.9-2) Procalcitonin < 0.05 (0-0.5) ng/ml Urine Color Dark Yellow Urine Appearance Clear (Clear) Urine pH 6.0 (4.5-7.5) Ur Specific [place] 1.017 (1.000-1.030) Urine Protein 3+ H (Negative) Urine Glucose (UA) Negative (Negative) Urine Ketones Trace H (Negative) Urine Blood Negative (Negative) Urine Nitrite Negative (Negative) Urine Bilirubin Negative (Negative) Urine Urobilinogen Negative (Negative) Ur Leukocyte Esterase Negative (Negative) Urine WBC (Auto) 1-5 (0-5) /hpf Urine RBC (Auto) 0-4 (0-4) /hpf U Hyaline Cast (Auto) 1-5 (0-5) /lpf U Epithel Cells (Auto) 20-30 H (0-5) /lpf Urine Bacteria (Auto) Negative (Negative) SARS-CoV-2 (PCR) (Negative) Influenza Type A (PCR) (Neg) Influenza Type B (PCR) (Neg) RSV (RT-PCR) (Neg) Administered Medications Discontinued Medications Diphenhydramine HCl (Diphenhydramine 50 Mg/Ml Vial) Confirm Administered Dose 50 mg .ROUTE .STK-MED ONE Stop: 12/02/22 22:37 Last Admin: 12/02/22 22:37 Dose: 50 mg Documented By: BEZ Ceftriaxone Sodium (Rocephin) 2,000 mg in 70 mls @ 140 mls/hr IV NOW STA Stop: 12/02/22 21:03 Last Infusion: 12/02/22 22:18 Dose: 0 mls/hr Documented By: Admin: 12/02/22 21:18 Dose: 140 mls/hr Documented By: FIOR Azithromycin 500 mg/ Dextrose 255 mls @ 127.5 mls/hr IV NOW STA Stop: 12/02/22 22:33 Last Infusion: 12/02/22 23:52 Dose: 0 mls/hr Documented By: Admin: 12/02/22 22:17 Dose: 127.5 mls/hr Documented By: FIOR Magnesium Oxide (Magnesium Oxide 400 Mg Tab) 400 mg PO NOW STA Stop: 12/02/22 23:39 Last Admin: 12/03/22 00:19 Dose: 400 mg Documented By: SHANT Methylprednisolone (Methylprednisolone 125 Mg/2 Ml Vial) Confirm Administered Dose 125 mg .ROUTE .STK-MED ONE Stop: 12/02/22 22:37 Last Admin: 12/02/22 22:52 Dose: Not Given Documented By: FIOR Imaging Data Attestation: I personally reviewed and interpreted this imaging study as follows: My Impression: 1 view chest x-ray was obtained in the emergency department. My interpretation is cardiomegaly with possible pulmonary edema, final report below. Radiologist's Impression: Chest X-Ray 12/02/22 17:57 XR chest 1V portable CLINICAL HISTORY: Dyspnea TECHNIQUE: Single frontal radiograph of the chest was obtained. Comparison: Comparison is made to chest radiograph 10/06/2021 FINDINGS: Pacemaker defibrillator is seen. Cardiomegaly is noted. Reticular interstitial opacities are seen. Superimposed airspace opacity in the bilateral lower lungs cannot be excluded. No evidence of pleural effusion or pneumothorax. IMPRESSION: Cardiomegaly is seen. Interstitial opacities are seen, bilateral lower lung airspace opacities cannot be excluded. ACT 112: Negative or not required by law. Electronically signed by: Jeanmarie Louis M.D. 12/02/2022 6:36 PM Discharge Plan Visit Data Chief Complaint: Shortness of Breath/Dyspnea Stated Complaint: SOB ED Provider: Tim Carty Discharge Problem: Pulmonary edema, Elevated troponin I level, ANDRADE (dyspnea on exertion) Patient Disposition: Admitted As Inpatient Discharge Instructions Interventions: ED Discharge Assessment Last Done: 12/02/22 23:06 Pulmonary edema Qualifiers: Chronicity: acute Qualified Code(s): J81.0 - Acute pulmonary edema
[2022-12-02 18:35] LABS: Basophils # (auto) 0.04 K/uL (0-0.2); Basophils % (auto) 0.5 %; Eosinophils % (auto) 1.2 %; Hematocrit (blood only) 38.5 % (37.0-47.0); Hemoglobin 13.4 g/dl (12.0-16.0); Immature Granulocytes # (auto) 0.03 K/uL (0.01-0.20); Immature Granulocytes % (auto) 0.4 %; Lymphocytes # (auto) 0.88 K/uL (1.2-3.4); Lymphocytes % (auto) 10.3 %; Mean Corpuscular Hemoglobin 31.9 pg (25.0-34.0); Mean Corpuscular Hgb Conc 34.8 g/dL (32.0-36.0); Mean Corpuscular Volume 91.7 fL (80.0-100.0); Mean Platelet Volume 10.8 fL (9.4-12.4); Monocytes # (auto) 0.49 K/uL (0.11-0.59); Monocytes % (auto) 5.8 %; Neutrophils # (auto) 6.98 K/uL (1.40-6.50); Neutrophils % (auto) 81.8 %; Platelet Count 166 K/uL (130-400); RDW Coefficient of Variation 13.8 % (11.5-14.5); RDW Standard Deviation 46.7 fL (36.4-46.3); White Blood Count 8.52 K/ul (4.8-10.8)
--- NOTE | 2022-12-02 18:37 | XRay Report ---
XR chest 1V portable CLINICAL HISTORY: Dyspnea TECHNIQUE: Single frontal radiograph of the chest was obtained. Comparison: Comparison is made to chest radiograph 10/06/2021 FINDINGS: Pacemaker defibrillator is seen. Cardiomegaly is noted. Reticular interstitial opacities are seen. [place] perimposed airspace opacity in the bilateral lower lungs cannot be excluded. No evidence of pleural e ffusion or pneumothorax. IMPRESSION: Cardiomegaly is seen. Interstitial opacities are seen, bilateral lower lung airspace opacities cannot be excluded. ACT 112: Negative or not required by law. Electronically signed by: Jeanmarie Louis M.D. 12/02/2022 6:36 PM
[2022-12-02 18:53] LABS: Base Excess VBG -1.7 mEq/L; HCO3 VBG 22 mmol/L; Oxygen Saturation VBG 85.4 %; PCO2 VBG 33 mmHg (38-50); PO2 VBG 53 mmHg; pH VBG 7.43 (7.36-7.41)
[2022-12-02 18:54] LABS: Albumin Globulin Ratio 1.1 (0.9-2); Albumin Level 3.5 gm/dl (3.4-5.0); BUN Creatinine Ratio 18.5 (10-20); Bilirubin,Total 0.8 mg/dl (0.2-1.0); Creatinine Clr Calc Pharmacy 34.1 ml/min; Est GFR (African American) 56.1 ml/min; Est GFR (Non-African American) 48.4 ml/min; Globulin 3.3 gm/dl (2.5-4.0); Magnesium 1.6 mg/dl (1.7-2.4); Potassium 3.8 mmol/L (3.5-5.1); Total Protein 6.8 gm/dl (6.0-8.3)
[2022-12-02 19:08] LABS: Troponin I High Sensitivity 76.2 pg/ml (0-14)
[2022-12-02 19:09] LABS: Influenza A virus by PCR Negative (Neg); Influenza B virus by PCR Negative (Neg); RSV by PCR Negative (Neg); SARS CoV2 RNA(COVID-19) Ceph NEGATIVE (Negative)
[2022-12-02 19:27] LABS: INR 0.9 (0.9-1.1); Prothrombin Time 10.1 Seconds (9.0-12.0)
[2022-12-02] MEDS ORDERED: cefTRIAXone SODIUM 2,000 MG/70 ML BAG IV STA (20:34)
[2022-12-02] MEDS ORDERED: AZITHROMYCIN 500 MG in DEXTROSE 5% 250 ML IV STA (20:34)
--- NOTE | 2022-12-02 20:55 | History & Physical Report ---
Date of Service December 02, 2022 Assessment & Plan (1) ANDRADE (dyspnea on exertion): Plan: 82 yo F with PMHx of CAD s/p angioplasty and stent (2018), HFrEF with EF 30% (2021) s/p biventricular pacemaker, high grade subclavian and L internal carotid stenosis, dyspnea on exertion, hypothyroid, GERD, and HTN presents with a few days of shortness of breath. #Acute on chronic systolic CHF exacerbation #Dyspnea on exertion, chronic -Presented with 3 days worsening shortness of breath. Appears to be induced by salt overload from diet over the past week. Cannot exclude infection as below. Currently on 2L NC. On admission was hypotensive systolically in the 90s so diuretics were not able to be given. Will treat possible pneumonia as below in hopes of BP going up enough for diuresis. -BNP >47k. Cr wnl. -CXR: cardiomegaly without pleural effusion -Last echo EF 30% December 2021. Repeat echo pending. -daily weights, low Na diet, fluid restriction 1.5L -consider cardiology consult -cont. home inhalers -hold metoprolol due to hypotension #Community Acquired Pneumonia -possible superimposed infection based on presentation and imaging. No leukocytosis. Afebrile. Procal neg. MRSA nares pending. Blood cx pending. -CXR: interstitial opacities are seen, bilateral lower lung airspace opacities cannot be excluded -Given rocephin x1 in ED. Attempted giving azithromycin in ED for atypical coverage however patient had a red man syndrome like reaction. Azithromycin was d/c. Pt improved after administration of Benadryl. Medication added to allergy list. Will hold off on atypical coverage at this time. Will defer further abx regimen to day team. -cont. inhalers as above #Elevated troponin, resolved -trop 76 on admission, peaked. Suspect demand. Denies chest pain. #Hypomagnesemia -1.6 on admission -gave mag ox 400mg PO. Deferred IV due to fluid overload -recheck am #CAD s/p angioplasty and stent (2019) #HTN -hold entresto, metoprolol due to hypotension as above #Hypothyroidism -cont. levothyroxine #GERD -cont. pantoprazole DVT ppx: Heparin FEN/GI: HH, low Na, fluid restriction Code Status: Full Dispo: PCU (2) Congestive heart failure: (3) CAD (coronary artery disease): (4) Hypothyroid: (5) Elevated troponin I level: (6) Pulmonary edema: (7) HTN (hypertension): History of Present Illness Chief Complaint: Shortness of breath Primary Care Provider: Courtney Naik MD 82 yo F with PMHx of CAD s/p angioplasty and stent (2018), HFrEF with EF 30% (2021) s/p biventricular pacemaker, high grade subclavian and L internal carotid stenosis, dyspnea on exertion, hypothyroid, and HTN presents with a few days of shortness of breath. Symptoms got worse last night and into the morning prompting her to call 911. Worse on exertion. Has had some orthopnea and productive cough. Denies fever, fatigue, headache, chest pain, abd pain, N/V/D, dysuria, lower extremity swelling. She does state over the last week she has had an increase in salt intake from eating out a lot. Compliant with medications and inhalers at home. Dry weight unknown. Allergies Allergy/AdvReac Type Severity Reaction Status Date / Time azithromycin [From Zithromax] Allergy Anaphylaxis Verified 12/09/22 20:49 Home Medications Medication Instructions Recorded Confirmed Type levothyroxine 25 mcg tablet 25 mcg PO Q OTHER DAY 07/17/19 12/09/22 History levothyroxine 50 mcg tablet 50 mcg PO Q OTHER DAY 07/17/19 12/09/22 History cyanocobalamin (vitamin B-12) 1,000 mcg PO DAILY #30 caps 11/10/19 12/09/22 Rx 1,000 mcg capsule ipratropium 20 mcg-albuterol 100 1 puffs inhalation Q6H PRN cough, 11/10/19 12/09/22 Rx mcg/actuation mist for inhalation wheeze, shortness of breath #4 (Combivent Respimat) grams fluticasone 250 mcg-salmeterol 50 1 inh inhalation BID 02/26/20 12/09/22 History mcg/dose blistr powdr for inhalation (Wixela Inhub) metoprolol succinate 25 mg 25 mg PO QAM #30 tabs 03/01/20 12/09/22 Rx tablet,extended release 24 hr (Toprol XL) atorvastatin 80 mg tablet 80 mg PO QAM 12/02/22 12/09/22 History cholecalciferol (vitamin D3) 25 25 mcg PO DAILY 12/02/22 12/09/22 History mcg (1,000 unit) tablet (Vitamin D3) cyclobenzaprine 10 mg tablet 10 mg PO BID PRN Muscle Spasm 12/02/22 12/09/22 History ferrous sulfate 325 mg (65 mg 325 mg PO DAILY 12/02/22 12/09/22 History iron) tablet pantoprazole 40 mg tablet,delayed 40 mg PO DAILY 12/02/22 12/09/22 History release sacubitril 49 mg-valsartan 51 mg 1 tab PO BID 12/02/22 12/09/22 History tablet (Entresto) tiotropium bromide 18 mcg capsule 1 cap inhalation DAILY 12/02/22 12/09/22 History with inhalation device (Spiriva with HandiHaler) amiodarone 200 mg tablet 200 mg PO BIDM 30 days #60 tabs 12/06/22 12/09/22 Rx furosemide 20 mg tablet 20 mg PO QAM 30 days #30 tabs 12/06/22 12/09/22 Rx Past Med/Surg History Medical History Advanced care planning/counseling discussion Atrial tachycardia CAD (coronary artery disease) HTN (hypertension) Left bundle branch block Palliative care by specialist STEMI (ST elevation myocardial infarction) Upper GI bleed Surgical History S/P AAA repair Family History Other Hypertension Social History Smoking Status: Current every day smoker Tobacco Type: Cigarettes Cigarettes Per Day: 20; Second Hand Exposure: Yes; Do You Dip or Chew Tobacco: No; Tobacco Cessation Education Requested by Patient: No Hx Alcohol Use: Yes Alcohol type: wine Hx Substance Use: No Preferred Language: Persian Communication Ability: Impaired Manager Diversity Required: No Beliefs That Will Affect Care: None marital status: Current Living Situation: Spouse How many Children do You have: 2 Other Information That Helps Us Care for You: No Feels Safe at Home: Yes Safety Concerns: Feels Safe At This Time Assistive Devices: None Review of Systems Review of Systems: All systems reviewed & are unremarkable except as noted in HPI & below Physical Exam Physical Exam: Constitutional: in no acute distress, pleasant, intact memory. AOx3. Vitals as above. HEENT: No scleral injection or discharge. Moist mucous membranes. Neck: Supple without lymphadenopathy or thyromegaly. Trachea midline. No JVD. Lungs: Diminished breath sounds bilaterally. +wheezes, +rales. Cardiac: Regular rate and rhythm.No murmurs. No extremity edema. 2+ distal peripheral pulses. Abdomen: Soft, nontender, and nondistended.No guarding. No hepatosplenomegaly. MSK: No cyanosis or clubbing. Extremities motor strength 5/5. Skin: No rashes, warm, dry. Neurologic: no focal deficits Results & Data Results & Data Vital Signs (Past 12 Hours) Vital Signs Temp Pulse Resp BP Pulse Ox O2 Del Method O2 Flow Rate 12/02/22 20:00 83 26 H 93/67 L 100 Nasal Cannula 2 12/02/22 19:30 83 25 H 101/69 100 Nasal Cannula 2 12/02/22 19:00 77 24 106/77 100 Nasal Cannula 2 12/02/22 18:30 78 22 93/73 L 99 Room Air 12/02/22 18:00 78 25 H 133/51 L 98 12/02/22 17:30 99 Room Air 12/02/22 17:30 Room Air 12/02/22 17:39 78 12/02/22 17:30 36.4 C L 79 24 100/74 99 Room Air Laboratory Results Laboratory Results WBC 8.52 K/ul (4.8-10.8) 12/02/22 18:11 RBC 4.20 M/uL (4.20-5.40) 12/02/22 18:11 Hgb 13.4 g/dl (12.0-16.0) 12/02/22 18:11 Hct 38.5 % (37.0-47.0) 12/02/22 18:11 MCV 91.7 fL (80.0-100.0) 12/02/22 18:11 MCH 31.9 pg (25.0-34.0) 12/02/22 18:11 MCHC 34.8 g/dL (32.0-36.0) 12/02/22 18:11 RDW Std Deviation 46.7 fL (36.4-46.3) H 12/02/22 18:11 RDW Coeff of Vanessa 13.8 % (11.5-14.5) 12/02/22 18:11 Plt Count 166 K/uL (130-400) 12/02/22 18:11 MPV 10.8 fL (9.4-12.4) 12/02/22 18:11 Immature Gran % (Auto) 0.4 % 12/02/22 18:11 Neut % (Auto) 81.8 % 12/02/22 18:11 Lymph % (Auto) 10.3 % 12/02/22 18:11 [place] % (Auto) 5.8 % 12/02/22 18:11 Eos % (Auto) 1.2 % 12/02/22 18:11 Baso % (Auto) 0.5 % 12/02/22 18:11 Neut # (Auto) 6.98 K/uL (1.40-6.50) H 12/02/22 18:11 Lymph # (Auto) 0.88 K/uL (1.2-3.4) L 12/02/22 18:11 [place] # (Auto) 0.49 K/uL (0.11-0.59) 12/02/22 18:11 Eos # (Auto) 0.10 K/uL (0-0.50) 12/02/22 18:11 Baso # (Auto) 0.04 K/uL (0-0.2) 12/02/22 18:11 Immature Gran # (Auto) 0.03 K/uL (0.01-0.20) 12/02/22 18:11 PT 10.1 Seconds (9.0-12.0) 12/02/22 18:11 INR 0.9 (0.9-1.1) 12/02/22 18:11 APTT 28.0 Seconds (21.0-31.0) 12/02/22 18:11 PTT Ratio 1.0 12/02/22 18:11 VBG pH 7.43 (7.36-7.41) H 12/02/22 18:42 VBG pCO2 33 mmHg (38-50) L 12/02/22 18:42 VBG pO2 53 mmHg 12/02/22 18:42 VBG HCO3 22 mmol/L 12/02/22 18:42 VBG O2 Saturation 85.4 % 12/02/22 18:42 VBG Base Excess -1.7 mEq/L 12/02/22 18:42 Sodium 136 mmol/L (136-145) 12/02/22 18:11 Potassium 3.8 mmol/L (3.5-5.1) 12/02/22 18:11 Chloride 104 mmol/L (98-107) 12/02/22 18:11 Carbon Dioxide 26 mmol/L (21-32) 12/02/22 18:11 Anion Gap 6 (3-11) 12/02/22 18:11 BUN 20 mg/dl (6-23) 12/02/22 18:11 Creatinine 1.08 mg/dl (0.6-1.2) 12/02/22 18:11 Est Cr Clr Drug Dosing 34.1 ml/min 12/02/22 18:11 Est GFR ( Amer) 56.1 ml/min 12/02/22 18:11 Est GFR (Non-Af Amer) 48.4 ml/min 12/02/22 18:11 BUN/Creatinine Ratio 18.5 (10-20) 12/02/22 18:11 Glucose 114 mg/dl (70-99(Fasting)) H 12/02/22 18:11 Lactate 1.4 mmol/L (0.4-2.0) 12/02/22 17:57 Calcium 9.0 mg/dl (8.6-10.3) 12/02/22 18:11 Magnesium 1.6 mg/dl (1.7-2.4) L 12/02/22 18:11 Total Bilirubin 0.8 mg/dl (0.2-1.0) 12/02/22 18:11 AST 18 U/L (13-39) 12/02/22 18:11 ALT 11 U/L (7-52) 12/02/22 18:11 Alkaline Phosphatase 141 U/L (34-104) H 12/02/22 18:11 Troponin I High Sens 76.2 pg/ml (0-14) H* 12/02/22 18:11 B-Natriuretic Peptide > 4700 pg/ml (0-100) H 12/02/22 18:11 Total Protein 6.8 gm/dl (6.0-8.3) 12/02/22 18:11 Albumin 3.5 gm/dl (3.4-5.0) 12/02/22 18:11 Globulin 3.3 gm/dl (2.5-4.0) 12/02/22 18:11 Albumin/Globulin Ratio 1.1 (0.9-2) 12/02/22 18:11 Procalcitonin < 0.05 ng/ml (0-0.5) 12/02/22 18:20 Urine Color Dark Yellow 12/02/22 20:49 Urine Appearance Clear (Clear) 12/02/22 20:49 Urine pH 6.0 (4.5-7.5) 12/02/22 20:49 Ur Specific [place] 1.017 (1.000-1.030) 12/02/22 20:49 Urine Protein 3+ (Negative) H 12/02/22 20:49 Urine Glucose (UA) Negative (Negative) 12/02/22 20:49 Urine Ketones Trace (Negative) H 12/02/22 20:49 Urine Blood Negative (Negative) 12/02/22 20:49 Urine Nitrite Negative (Negative) 12/02/22 20:49 Urine Bilirubin Negative (Negative) 12/02/22 20:49 Urine Urobilinogen Negative (Negative) 12/02/22 20:49 Ur Leukocyte Esterase Negative (Negative) 12/02/22 20:49 Urine WBC (Auto) 1-5 /hpf (0-5) 12/02/22 20:49 Urine RBC (Auto) 0-4 /hpf (0-4) 12/02/22 20:49 U Hyaline Cast (Auto) 1-5 /lpf (0-5) 12/02/22 20:49 U Epithel Cells (Auto) 20-30 /lpf (0-5) H 12/02/22 20:49 Urine Bacteria (Auto) Negative (Negative) 12/02/22 20:49 SARS-CoV-2 (PCR) NEGATIVE (Negative) 12/02/22 18:20 Influenza Type A (PCR) Negative (Neg) 12/02/22 18:20 Influenza Type B (PCR) Negative (Neg) 12/02/22 18:20 RSV (RT-PCR) Negative (Neg) 12/02/22 18:20 Impressions Chest X-Ray 12/02/22 17:57 XR chest 1V portable CLINICAL HISTORY: Dyspnea TECHNIQUE: Single frontal radiograph of the chest was obtained. Comparison: Comparison is made to chest radiograph 10/06/2021 FINDINGS: Pacemaker defibrillator is seen. Cardiomegaly is noted. Reticular interstitial opacities are seen. Superimposed airspace opacity in the bilateral lower lungs cannot be excluded. No evidence of pleural effusion or pneumothorax. IMPRESSION: Cardiomegaly is seen. Interstitial opacities are seen, bilateral lower lung airspace opacities cannot be excluded. ACT 112: Negative or not required by law. Electronically signed by: Jeanmarie Louis M.D. 12/02/2022 6:36 PM Supervising Physician Co-Signing Physician Notes Attending addendum: I have physically seen this patient, have supervised the medical residents activities, and agree with the H&P unless as otherwise noted. Assessment and Plan: Acute on chronic CHF exacerbation/elevated troponin/CAD/history of LAD stent/history of left circumflex artery stent/paroxysmal A-fib with RVR history- The patient will be admitted to telemetry for serial cardiac enzymes, serial EKG's, cardiac rhythm monitoring and a 2-D echocardiogram with Dopplers. EF in December 2021 is 30% Holding metoprolol and Entresto due to hypotension Consult cardiology Community-acquired pneumonia- Superimposed on top of CHF Ceftriaxone IV daily Azithromycin 500 mg IV daily was begun, however, patient developed a rash, and will be noted as an allergy Duonebs every 4 hours while awake and every 2 hours when necessary. Follow clinical examination Hypomagnesemia- Magnesium 1.6 on admission Replace orally as noted. Repeat laboratories in a.m. Hypothyroidism- Continue levothyroxine GERD- Continue pantoprazole Remaining orders and notations as noted Resident Activity Tracking Resident Involvement: Resident Care Provided Care Provided: Adult Hospital Medicine (2) Congestive heart failure Heart failure chronicity: unspecified Heart failure type: unspecified Qualified Code(s): I50.9 - Heart failure, unspecified (3) CAD (coronary artery disease) Associated angina: without angina Coronary Disease-Associated Artery/Lesion type: [place] artery [place] vs. transplanted heart: [place] heart Qualified Code(s): I25.10 - Atherosclerotic heart disease of [place] coronary artery without angina pectoris (6) Pulmonary edema Chronicity: acute Qualified Code(s): J81.0 - Acute pulmonary edema (7) HTN (hypertension) Hypertension type: essential hypertension Qualified Code(s): I10 - Essential (primary) hypertension
[2022-12-02 21:01] LABS: Appearance Urine Clear (Clear); Bacteria Urine Automated Negative (Negative); Bilirubin Urine Negative (Negative); Blood Urine Negative (Negative); Color Urine Dark Yellow; Epithelial Cell Urine Auto 20-30 /lpf (0-5); Glucose Urine UA Negative (Negative); Ketones Urine Trace (Negative); Leukocyte Esterase Urine Negative (Negative); Nitrite Urine Negative (Negative); Protein Urine 3+ (Negative); RBC Urine Automated 0-4 /hpf (0-4); Specific Gravity Urine 1.017 (1.000-1.030); Urobilinogen Urine Negative (Negative)
[2022-12-02] MEDS ORDERED: methylPREDNISolone 125 MG/2 ML VIAL ONE (22:36)
[2022-12-02] MEDS ORDERED: diphenhydrAMINE 50 MG/ML VIAL ONE (22:36)
[2022-12-02] MEDS ORDERED: ACETAMINOPHEN 325 MG TAB PO PRN (23:32)
[2022-12-02] MEDS ORDERED: MAGNESIUM OXIDE 400 MG TAB PO STA (23:38)
[2022-12-03] MEDS: ALBUT/IPRATROP 3MG/0.5MG NEB 3 ML VIAL NEB SCH ×6 (02:58→23:16)
[2022-12-03] MEDS ORDERED: FUROSEMIDE INJ 20 MG/2 ML VIAL IV ONE (03:14)
[2022-12-03] MEDS: LEVOTHYROXINE SODIUM 25 MCG TABLET PO SCH (06:01)
--- NOTE | 2022-12-03 06:35 | Hospitalist Progress Note ---
Date of Service December 03, 2022 Assessment & Plan (1) ANDRADE (dyspnea on exertion): Plan: 82 yo F with PMHx of CAD s/p angioplasty and stent (2018), HFrEF with EF 30% (2021) s/p biventricular pacemaker, high grade subclavian and L internal carotid stenosis, dyspnea on exertion, hypothyroid, GERD, and HTN presents with a few days of shortness of breath. Acute on chronic systolic CHF exacerbation Acute hypoxic resp failure -Presented with 3 days worsening shortness of breath. Currently on 2L NC. -CAP seems unlikely due to no leukocytosis. Afebrile. Procal neg. MRSA nares negative. Though Blood cx remain pending. -Given rocephin x1 in ED. -We will hold off on any further antibiotic treatment at this time. -Also with h/o copd - possible mild exacerbation also may be contributing. Continue home inhalers -BNP >47k. Cr wnl. -CXR: cardiomegaly without pleural effusion, interstitial opacities are seen, bilateral lower lung airspace opacities cannot be excluded -Last echo EF 30% December 2021. Repeat echo on 12/03 showed EF of 20-25% -Appears to be induced by salt overload from diet over the past week. -Received one dose lasix on admission 20mgs IV -daily weights, low Na diet, fluid restriction 1.5L, monitor renal function -Discussed with Dr. Rivera on 12/03/2022 - recommends to pre parole counseling aide on Salt restriction. May consider SGLT2 inhibitor if pressures stabilize. -hold metoprolol due to hypotension -Restarted home dose Lasix 20 mg QAM. Allergic reaction to azithromycin -Attempted giving azithromycin in ED for atypical coverage however patient had a red man syndrome like reaction. Azithromycin was d/c. Pt improved after administration of Benadryl. Medication added to allergy list. Constipation -Will add on Colace 100mg BID scheduled to help with constipation. COPD -Continue home inhalers -Continues to smoke approximately a pack every 1-1.5 days. Elevated troponin, resolved -trop 76 on admission, peaked. Suspect demand. Denies chest pain. Hypomagnesemia -replete and recheck in am CAD s/p angioplasty and stent (2018) HTN -hold entresto, metoprolol due to hypotension as above Hypothyroidism -cont. levothyroxine GERD -cont. pantoprazole CKD stage IIIa -Creatinine stable at 1.05 on 12/03. -Follows with nephrology as an outpatient. DVT ppx: Heparin FEN/GI: HH, low Na, fluid restriction Code Status: Full Dispo: PCU (2) Congestive heart failure: (3) CAD (coronary artery disease): (4) Hypothyroid: (5) Elevated troponin I level: (6) Pulmonary edema: (7) HTN (hypertension): (8) Constipation: Admission and Anticipated Discharge Date Admission Date: December 02, 2022 Supervising Physician Co-Signing Physician Notes Resident Physician Supervision Note: I independently interviewed and examined the patient and verified the laboy history and physical, reviewed labs and image studies and agree with resident findings and care plan. Subjective Patient was seen bedside this morning. States that she is feeling. Continues to endorse shortness of breath on exertion and orthopnea. States that she has had a cough for approximately a year and she is currently using 3 inhalers. She is a current smoker and has been smoking since she has been a kid. Smokes about 1 pack every 1-1.5 days. She also states that she she was supposed to be on Lasix 20 mg daily but has stopped taking that and maybe takes about half a pill every day. Review of Systems Review of Systems: All systems reviewed & are unremarkable except as noted in Subjective Physical Exam Constitutional: WD/WN, vitals as above no acute distress Eyes: PERRL, conjunctivae normal, anicteric sclerae ENMT: external ear and nose normal, oropharynx normal Neck: trachea midline, no thyromegaly Respiratory: normal respiratory effort, lungs clear to auscultation Cardiovascular: RRR, no murmur, no edema Chest (Breasts): normal inspection/palpation of breasts Gastrointestinal (Abdomen): normal bowel sounds, soft, nontender, no hepatosplenomegaly Musculoskeletal: no cyanosis or clubbing, extremities motor strength 5/5 Results & Data Results & Data Vital Signs (Past 12 Hours) Vital Signs Temp Pulse Pulse Resp BP BP BP 12/03/22 06:22 137/79 92/62 L 12/03/22 02:59 78 20 12/03/22 02:54 36.6 C 79 18 137/81 96/68 L 12/03/22 00:27 78 12/03/22 01:07 85 138/85 95/68 L 12/02/22 23:36 12/02/22 23:36 36.4 C L 66 20 132/84 12/02/22 23:36 36.4 C L 66 20 132/84 12/02/22 23:06 80 19 132/89 12/02/22 22:01 80 25 H 85/65 L 12/02/22 21:21 88 24 138/99 12/02/22 20:48 83 22 92/64 L 12/02/22 20:30 85 26 H 89/61 L 12/02/22 21:33 82 12/02/22 21:00 86 23 138/99 12/02/22 20:00 83 26 H 93/67 L 12/02/22 19:30 83 25 H 101/69 12/02/22 19:00 77 24 106/77 Pulse Ox O2 Del Method O2 Flow Rate 12/03/22 06:22 12/03/22 02:59 98 Nasal Cannula 4 12/03/22 02:54 100 Nasal Cannula 12/03/22 00:27 12/03/22 01:07 12/02/22 23:36 Nasal Cannula 4 12/02/22 23:36 99 Nasal Cannula 4 12/02/22 23:36 99 Nasal Cannula 4 12/02/22 23:06 100 Nasal Cannula 2 12/02/22 22:01 99 Nasal Cannula 2 12/02/22 21:21 98 Nasal Cannula 2 12/02/22 20:48 98 Nasal Cannula 2 12/02/22 20:30 98 Nasal Cannula 2 12/02/22 21:33 12/02/22 21:00 99 Nasal Cannula 2 12/02/22 20:00 100 Nasal Cannula 2 12/02/22 19:30 100 Nasal Cannula 2 12/02/22 19:00 100 Nasal Cannula 2 Resident Activity Tracking Resident Involvement: Resident Care Provided Care Provided: Adult Hospital Medicine (2) Congestive heart failure Heart failure chronicity: unspecified Heart failure type: unspecified Qualified Code(s): I50.9 - Heart failure, unspecified (3) CAD (coronary artery disease) Associated angina: without angina Coronary Disease-Associated Artery/Lesion type: [place] artery [place] vs. transplanted heart: [place] heart Qualified Code(s): I25.10 - Atherosclerotic heart disease of [place] coronary artery without angina pectoris (6) Pulmonary edema Chronicity: acute Qualified Code(s): J81.0 - Acute pulmonary edema (7) HTN (hypertension) Hypertension type: essential hypertension Qualified Code(s): I10 - Essential (primary) hypertension
[2022-12-03 07:37] LABS: Basophils # (auto) 0.03 K/uL (0-0.2); Basophils % (auto) 0.4 %; Eosinophils # (auto) 0.05 K/uL (0-0.50); Eosinophils % (auto) 0.7 %; Hematocrit (blood only) 37.1 % (37.0-47.0); Hemoglobin 12.8 g/dl (12.0-16.0); Immature Granulocytes # (auto) 0.02 K/uL (0.01-0.20); Immature Granulocytes % (auto) 0.3 %; Lymphocytes # (auto) 0.96 K/uL (1.2-3.4); Lymphocytes % (auto) 12.9 %; Mean Corpuscular Hemoglobin 31.6 pg (25.0-34.0); Mean Corpuscular Hgb Conc 34.5 g/dL (32.0-36.0); Mean Corpuscular Volume 91.6 fL (80.0-100.0); Mean Platelet Volume 11.1 fL (9.4-12.4); Monocytes # (auto) 0.46 K/uL (0.11-0.59); Monocytes % (auto) 6.2 %; Neutrophils % (auto) 79.5 %; Platelet Count 151 K/uL (130-400); RDW Coefficient of Variation 13.6 % (11.5-14.5); RDW Standard Deviation 46.1 fL (36.4-46.3); Red Blood Count 4.05 M/uL (4.20-5.40); White Blood Count 7.42 K/ul (4.8-10.8)
[2022-12-03 08:22] LABS: Albumin Globulin Ratio 1.1 (0.9-2); Albumin Level 3.4 gm/dl (3.4-5.0); BUN Creatinine Ratio 17.1 (10-20); Bilirubin,Total 0.6 mg/dl (0.2-1.0); Calcium 8.5 mg/dl (8.6-10.3); Creatinine Clr Calc Pharmacy 33.1 ml/min; Est GFR (African American) 58.1 ml/min; Est GFR (Non-African American) 50.1 ml/min; Globulin 3.2 gm/dl (2.5-4.0); Magnesium 1.5 mg/dl (1.7-2.4); Potassium 3.6 mmol/L (3.5-5.1); Total Protein 6.6 gm/dl (6.0-8.3)
--- NOTE | 2022-12-03 08:29 | Electrocardiogram Report ---
Test Reason : Blood Pressure : / mmHG Vent. Rate : 079 BPM Atrial Rate : 079 BPM P-R Int : 124 ms QRS Dur : 138 ms QT Int : 458 ms P-R-T Axes : 088 -73 108 degrees QTc Int : 525 ms Poor data quality, interpretation may be adversely affected Atrial-sensed ventricular-paced rhythm with occasional Premature ventricular complexes Abnormal ECG When compared with ECG of 05-OCT-2021 11:57, Premature ventricular complexes are now Present Vent. rate has decreased BY 4 BPM Confirmed by Blane Guido ([id number]) on 12/03/2022 8:29:38 AM Referred By: REFERRED SELF Confirmed By:Blane Guido
--- NOTE | 2022-12-03 09:08 | XCELERA ---
[id number] [id number]
[2022-12-03] MEDS: ATORVASTATIN 40 MG TAB PO SCH (09:52)
[2022-12-03] MEDS: CYANOCOBALAMIN (B-12) 500 MCG TABLET PO SCH (09:53)
[2022-12-03] MEDS: FLUTICASONE/VILANTEROL 200/25MCG 14 PUFFS/INHALER INH SCH (09:53)
[2022-12-03] MEDS: HEPARIN SOD 5,000 UNIT/0.5 ML VIAL SQ SCH ×2 (09:54→20:21)
[2022-12-03] MEDS: PANTOprazole 40 MG TAB PO SCH (09:55)
[2022-12-03] MEDS: FUROSEMIDE 20 MG TAB PO SCH (12:06)
[2022-12-03] MEDS: DOCUSATE SODIUM 100 MG CAP PO SCH ×2 (12:07→20:21)
[2022-12-03] MEDS ORDERED: MAGNESIUM OXIDE 400 MG TAB PO ONE (15:30)
[2022-12-04] MEDS: METOPROLOL SUCC 25MG EXT REL TAB PO SCH (03:01)
[2022-12-04] MEDS: ALBUT/IPRATROP 3MG/0.5MG NEB 3 ML VIAL NEB SCH ×6 (03:10→22:18)
[2022-12-04] MEDS: LEVOTHYROXINE SODIUM 50 MCG TABLET PO SCH (05:32)
--- NOTE | 2022-12-04 06:41 | Hospitalist Progress Note ---
Date of Service December 04, 2022 Assessment & Plan (1) ANDRADE (dyspnea on exertion): Plan: 82 yo F with PMHx of CAD s/p angioplasty and stent (2018), HFrEF with EF 30% (2021) s/p biventricular pacemaker, high grade subclavian and L internal carotid stenosis, dyspnea on exertion, hypothyroid, GERD, and HTN presents with a few days of shortness of breath. Acute on chronic systolic CHF exacerbation Acute hypoxic resp failure -Presented with 3 days worsening shortness of breath. Currently on 2L NC. -CAP seems unlikely due to no leukocytosis. Afebrile. Procal neg. MRSA nares negative. Though Blood cx remain pending. -Given rocephin x1 in ED. -We will hold off on any further antibiotic treatment at this time. -Also with h/o copd - possible mild exacerbation also may be contributing. Continue home inhalers -BNP >47k. Cr wnl. -CXR: cardiomegaly without pleural effusion, interstitial opacities are seen, bilateral lower lung airspace opacities cannot be excluded -Last echo EF 30% December 2021. Repeat echo on 12/03 showed EF of 20-25% -Appears to be induced by salt overload from diet over the past week. -Received one dose lasix on admission 20mgs IV -daily weights, low Na diet, fluid restriction 1.5L, monitor renal function -Discussed with Dr. Rivera on 12/03/2022 - recommends to residential substance abuse counselor on Salt restriction. May consider SGLT2 inhibitor if pressures stabilize. -Dr. Christensen also suggest only taking blood pressure left arm as patient has known lower blood pressure and right arm. -With reviewing of patient's chart, also noticed weight loss over the past 1 to 3 years. Has not had a CT of the chest at some time. Will order CT chest due to patient's history of smoking, weight loss, and worsening COPD. -Restarted home metoprolol. -Restarted home dose Lasix 20 mg QAM. Given another IV dose of Lasix 20 mg today due to bilateral rhonchi. Allergic reaction to azithromycin -Attempted giving azithromycin in ED for atypical coverage however patient had a red man syndrome like reaction. Azithromycin was d/c. Pt improved after administration of Benadryl. Medication added to allergy list. Constipation -Will add on Colace 100mg BID scheduled to help with constipation. COPD -Continue home inhalers -Continues to smoke approximately a pack every 1-1.5 days. Elevated troponin, resolved -trop 76 on admission, peaked. Suspect demand. Denies chest pain. Hypomagnesemia -replete and recheck in am CAD s/p angioplasty and stent (2019) HTN -We will restart home Entresto and metoprolol. Hypothyroidism -cont. levothyroxine GERD -cont. pantoprazole CKD stage IIIa -Creatinine stable at 1.05 on 12/03. -Follows with nephrology as an outpatient. DVT ppx: Heparin FEN/GI: HH, low Na, fluid restriction Code Status: Full Dispo: PCU (2) Congestive heart failure: (3) CAD (coronary artery disease): (4) Hypothyroid: (5) Elevated troponin I level: (6) Pulmonary edema: (7) HTN (hypertension): (8) Constipation: Admission and Anticipated Discharge Date Admission Date: December 02, 2022 Supervising Physician Co-Signing Physician Notes Resident Physician Supervision Note: I independently interviewed and examined the patient and verified the laboy history and physical, reviewed labs and image studies and agree with resident fi ndings and care plan. Subjective Patient was seen bedside this morning. She states that she is feeling tired and had some trouble breathing overnight. She states that she continues to have shortness of breath when laying flat, though this has been present for quite some time. Admits to eating a lot of salty food recently and recognizes that this may be part of the issue of her current hospitalization. Review of Systems Review of Systems: All systems reviewed & are unremarkable except as noted in Subjective Physical Exam Constitutional: WD/WN, vitals as above no acute distress Eyes: PERRL, conjunctivae normal, anicteric sclerae ENMT: external ear and nose normal, oropharynx normal Neck: trachea midline, no thyromegaly Respiratory: normal respiratory effort Auscultation: + rhonchi (Bilateral lower lobes) Cardiovascular: RRR, no murmur, no edema Chest (Breasts): normal inspection/palpation of breasts Gastrointestinal (Abdomen): normal bowel sounds, soft, nontender, no hepatosplenomegaly Musculoskeletal: no cyanosis or clubbing, extremities motor strength 5/5 Skin: no rashes, warm and dry Results & Data Results & Data Vital Signs (Past 12 Hours) Vital Signs Temp Pulse Pulse Resp BP BP Pulse Ox 12/04/22 03:37 36.6 C 96 H 18 131/88 99 12/04/22 02:56 98 H 20 147/92 H 99 12/04/22 02:42 163 H 22 178/93 H 99 12/04/22 03:11 90 18 98 12/04/22 01:10 133/84 12/04/22 00:44 36.6 C 88 18 110/35 L 99 12/03/22 23:19 88 20 96 12/03/22 23:06 91 H 12/03/22 20:00 12/03/22 20:05 36.6 C 99 H 18 95/79 L 99 12/03/22 19:50 51 L 18 98 O2 Del Method O2 Flow Rate 12/04/22 03:37 Nasal Cannula 2 12/04/22 02:56 Nasal Cannula 2 12/04/22 02:42 Nasal Cannula 2 12/04/22 03:11 Nasal Cannula 2 12/04/22 01:10 12/04/22 00:44 Nasal Cannula 2 12/03/22 23:19 12/03/22 23:06 12/03/22 20:00 Nasal Cannula 2 12/03/22 20:05 Nasal Cannula 2 12/03/22 19:50 Nasal Cannula 2 (2) Congestive heart failure Heart failure chronicity: unspecified Heart failure type: unspecified Qualified Code(s): I50.9 - Heart failure, unspecified (3) CAD (coronary artery disease) Associated angina: without angina Coronary Disease-Associated Artery/Lesion type: [place] artery [place] vs. transplanted heart: [place] heart Qualified Code(s): I25.10 - Atherosclerotic heart disease of [place] coronary artery without angina pectoris (6) Pulmonary edema Chronicity: acute Qualified Code(s): J81.0 - Acute pulmonary edema (7) HTN (hypertension) Hypertension type: essential hypertension Qualified Code(s): I10 - Essential (primary) hypertension
[2022-12-04 07:24] LABS: Basophils # (auto) 0.03 K/uL (0-0.2); Basophils % (auto) 0.4 %; Eosinophils # (auto) 0.03 K/uL (0-0.50); Eosinophils % (auto) 0.4 %; Hematocrit (blood only) 35.1 % (37.0-47.0); Hemoglobin 12.4 g/dl (12.0-16.0); Immature Granulocytes # (auto) 0.02 K/uL (0.01-0.20); Immature Granulocytes % (auto) 0.3 %; Lymphocytes # (auto) 0.74 K/uL (1.2-3.4); Lymphocytes % (auto) 10.7 %; Mean Corpuscular Hgb Conc 35.3 g/dL (32.0-36.0); Mean Corpuscular Volume 90.5 fL (80.0-100.0); Mean Platelet Volume 11.6 fL (9.4-12.4); Monocytes # (auto) 0.48 K/uL (0.11-0.59); Monocytes % (auto) 6.9 %; Neutrophils # (auto) 5.64 K/uL (1.40-6.50); Neutrophils % (auto) 81.3 %; Platelet Count 141 K/uL (130-400); RDW Coefficient of Variation 13.8 % (11.5-14.5); RDW Standard Deviation 45.1 fL (36.4-46.3); Red Blood Count 3.88 M/uL (4.20-5.40); White Blood Count 6.94 K/ul (4.8-10.8)
[2022-12-04 07:55] LABS: Albumin Level 3.4 gm/dl (3.4-5.0); Bilirubin,Total 0.9 mg/dl (0.2-1.0); Calcium 8.5 mg/dl (8.6-10.3); Creatinine Clr Calc Pharmacy 32.8 ml/min; Est GFR (African American) 54.9 ml/min; Est GFR (Non-African American) 47.4 ml/min; Globulin 3.3 gm/dl (2.5-4.0); Magnesium 1.5 mg/dl (1.7-2.4); Potassium 3.6 mmol/L (3.5-5.1); Total Protein 6.7 gm/dl (6.0-8.3)
[2022-12-04] MEDS: ATORVASTATIN 40 MG TAB PO SCH (10:20)
[2022-12-04] MEDS: CYANOCOBALAMIN (B-12) 500 MCG TABLET PO SCH (10:22)
[2022-12-04] MEDS: DOCUSATE SODIUM 100 MG CAP PO SCH ×2 (10:23→20:18)
[2022-12-04] MEDS: FUROSEMIDE 20 MG TAB PO SCH (10:24)
[2022-12-04] MEDS: FLUTICASONE/VILANTEROL 200/25MCG 14 PUFFS/INHALER INH SCH (10:24)
[2022-12-04] MEDS: PANTOprazole 40 MG TAB PO SCH (10:25)
[2022-12-04] MEDS: HEPARIN SOD 5,000 UNIT/0.5 ML VIAL SQ SCH ×2 (10:30→20:18)
[2022-12-04] MEDS ORDERED: FUROSEMIDE INJ 20 MG/2 ML VIAL IV ONE (12:45)
[2022-12-04] MEDS ORDERED: METOPROLOL TARTRATE 1 MG/ML VIAL IV ONE (15:11)
[2022-12-04] MEDS ORDERED: METOPROLOL TARTRATE 1 MG/ML VIAL IV STA ×2 (15:15→15:42)
[2022-12-04] MEDS ORDERED: MAGNESIUM SULFATE / D5W 1 GM/100 ML BAG IV ONE (15:16)
[2022-12-04] MEDS ORDERED: METOPROLOL TARTRATE 1 MG/ML VIAL IV PRN (15:20)
[2022-12-04] MEDS ORDERED: ASPIRIN CHEW 324 MG PO STA (15:33)
[2022-12-04] MEDS ORDERED: NITROGLYCERIN SL 0.4 MG/TAB TAB SL STA (15:36)
[2022-12-04] MEDS ORDERED: NITROGLYCERIN SL 0.4 MG/TAB TAB ONE (15:39)
[2022-12-04 15:41] LABS: Hematocrit (blood only) 35.9 % (37.0-47.0); Hemoglobin 12.7 g/dl (12.0-16.0); Mean Corpuscular Hemoglobin 32.2 pg (25.0-34.0); Mean Corpuscular Hgb Conc 35.4 g/dL (32.0-36.0); Mean Corpuscular Volume 90.9 fL (80.0-100.0); Mean Platelet Volume 11.4 fL (9.4-12.4); Platelet Count 157 K/uL (130-400); RDW Coefficient of Variation 13.9 % (11.5-14.5); RDW Standard Deviation 46.5 fL (36.4-46.3); Red Blood Count 3.95 M/uL (4.20-5.40); White Blood Count 7.19 K/ul (4.8-10.8)
[2022-12-04 15:56] LABS: Calcium 8.8 mg/dl (8.6-10.3); Potassium 3.8 mmol/L (3.5-5.1)
[2022-12-04] MEDS ORDERED: DIGOXIN 500 MCG in SYRINGE 8 ML IV ONE (16:00)
[2022-12-04 16:02] LABS: BUN Creatinine Ratio 21.6 (10-20); Creatinine Clr Calc Pharmacy 31.1 ml/min; Est GFR (African American) 51.5 ml/min; Est GFR (Non-African American) 44.4 ml/min
[2022-12-04 16:09] LABS: Troponin I High Sensitivity 88.2 pg/ml (0-14)
[2022-12-04] MEDS ORDERED: AMIODARONE / D5W 360 MG/200 ML BAG IV ONE (16:11)
[2022-12-04] MEDS ORDERED: 0.2 MICRON FILTER SET 1 EACH IV ONE (16:11)
--- NOTE | 2022-12-04 16:27 | Communication Note ---
Date of Service: December 04, 2022 Code alfonzo called due to patient having heart rates sustained in the 140s to 160s. Patient states she also felt warm, started to have trouble with her geraldine athing, then fell her heart racing. She denies any chest pain. CBC, BMP, troponin, and EKG ordered. CBC and BMP were benign. Troponin slightly elevated. We will repeat troponin in 2 hours. EKG showed A-fib with RVR with occasional ventricular paced complexes. Metoprolol 5 mg IV was given twice as well as aspirin. Heart rate continue to fluctuate from normal to tachycardic. Started on amiodarone drip. We will continue to monitor on telemetry.
[2022-12-04] MEDS: MAGNESIUM SULFATE / D5W 1 GM/100 ML BAG IV SCH ×2 (17:14→19:14)
--- NOTE | 2022-12-04 19:52 | CT Scan Report ---
Exam(s): CT CHEST Without Contrast EXAM: CT Chest Without Intravenous Contrast CLINICAL HISTORY: Reason for exam: unintentional weight loss, extensive smoking hx. TECHNIQUE: Axial computed tomography images of the chest without intravenous contrast. CTDI is 6.9 mGy and DLP is 249.21 mGy-cm. Automated exposure control was utilized for the study. A dose lowering technique was utilized adhering to the principles of ALARA. COMPARISON: No relevant prior studies available. FINDINGS: Lungs: Unremarkable. No mass. No consolidation. Dependent atelectasis/scarring. Pleural space: Unremarkable. No pneumothorax. No significant effusion. Heart: Mild cardiomegaly. No significant pericardial effusion. No significant coronary artery calcifications. Bones/joints: Degenerative changes of the spine. No acute fracture. No dislocation. Soft tissues: Unremarkable. Vasculature: Atherosclerotic changes of the aorta. No thoracic aortic aneurysm. Lymph nodes: Unremarkable. No enlarged lymph nodes. Tubes, lines and devices: Pacemaker leads. IMPRESSION: No focal infiltrate, pleural effusion, or pneumothorax. Dependent atelectasis/scarring. Electronically signed by: Sotero Kennedy MD 12/04/22 19:51 PM
[2022-12-04] MEDS: VALSARTAN/SACUBITRIL 51/49 MG TAB PO SCH (20:18)
[2022-12-05] MEDS: ALBUT/IPRATROP 3MG/0.5MG NEB 3 ML VIAL NEB SCH ×6 (03:20→23:51)
[2022-12-05] MEDS: LEVOTHYROXINE SODIUM 25 MCG TABLET PO SCH (06:02)
--- NOTE | 2022-12-05 06:42 | Hospitalist Progress Note ---
Date of Service December 05, 2022 Assessment & Plan (1) ANDRADE (dyspnea on exertion): Plan: 82 yo F with PMHx of CAD s/p angioplasty and stent (2018), HFrEF with EF 30% (2021) s/p biventricular pacemaker, high grade subclavian and L internal carotid stenosis, dyspnea on exertion, hypothyroid, GERD, and HTN presents with a few days of shortness of breath. Acute on chronic systolic CHF exacerbation Acute hypoxic resp failure -Presented with 3 days worsening shortness of breath. Currently on 2L NC. -CAP seems unlikely due to no leukocytosis. Afebrile. Procal neg. MRSA nares negative. Though Blood cx remain pending. -Given rocephin x1 in ED. -We will hold off on any further antibiotic treatment at this time. -Also with h/o copd - possible mild exacerbation also may be contributing. Continue home inhalers -BNP >47k. Cr wnl. -CXR: cardiomegaly without pleural effusion, interstitial opacities are seen, bilateral lower lung airspace opacities cannot be excluded -Last echo EF 30% December 2021. Repeat echo on 12/03 showed EF of 20-25% -Appears to be induced by salt overload from diet over the past week. -Received one dose lasix on admission 20mgs IV -daily weights, low Na diet, fluid restriction 1.5L, monitor renal function -Discussed with Dr. Rivera on 12/03/2022 - recommends to corrections counselor on Salt restriction. May consider SGLT2 inhibitor if pressures stabilize. -Dr. Christensen also suggest only taking blood pressure left arm as patient has known lower blood pressure and right arm. -With reviewing of patient's chart, also noticed weight loss over the past 1 to 3 years. Has not had a CT of the chest at some time. Will order CT chest due to patient's history of smoking, weight loss, and worsening COPD. CT showed no focal infiltrate, pleural effusions, or pneumothorax. Did show atelectasis/scarring. -Restarted home metoprolol. -Restarted home dose Lasix 20 mg QAM. Given another IV dose of Lasix 20 mg on 12/04. Currently does not seem fluid overloaded at this time. Atrial fibrillation/tachycardia -Patient has had 2 episodes of tachycardia with atrial fibrillation. -Required amiodarone drip. Will consult cardiology regarding further management as well as management of CHF. Allergic reaction to azithromycin -Attempted giving azithromycin in ED for atypical coverage however patient had a red man syndrome like reaction. Azithromycin was d/c. Pt improved after administration of Benadryl. Medication added to allergy list. -Although history might be due to underlying heart issues rather than allergic reaction to medication. Constipation -Will add on Colace 100mg BID scheduled to help with constipation. COPD -Continue home inhalers -Continues to smoke approximately a pack every 1-1.5 days. Elevated troponin -trop 76 on admission, repeat troponin on 12/04 was 92. Repeat troponin this a.m. was 113. Has not yet peaked. -Will repeat troponin in 6 hours. -Suspect demand. Denies chest pain. Hypomagnesemia -replete and pending recheck. CAD s/p angioplasty and stent (2019) HTN -We will restart home Entresto and metoprolol. Hypothyroidism -cont. levothyroxine GERD -cont. pantoprazole CKD stage IIIa -Creatinine stable at 1.05 on 12/03. -Follows with nephrology as an outpatient. DVT ppx: Heparin FEN/GI: HH, low Na, fluid restriction Code Status: Full Dispo: PCU (2) Congestive heart failure: (3) CAD (coronary artery disease): (4) Hypothyroid: (5) Elevated troponin I level: (6) Pulmonary edema: (7) HTN (hypertension): (8) Constipation: Admission and Anticipated Discharge Date Admission Date: December 02, 2022 Subjective Patient was seen bedside this morning. States that she was able to sleep better last night. States that she wants to go home at this time. She denies any shortness of breath or chest pain at this time. She also denies any further incidence of racing heart rate, feeling hot, or issues with breathing. Review of Systems Review of Systems: All systems reviewed & are unremarkable except as noted in Subjective Physical Exam Constitutional: WD/WN, vitals as above no acute distress Eyes: PERRL, conjunctivae normal, anicteric sclerae ENMT: external ear and nose normal, oropharynx normal Neck: trachea midline, no thyromegaly Respiratory: normal respiratory effort, lungs clear to auscultation Cardiovascular: RRR, no murmur, no edema Chest (Breasts): normal inspection/palpation of breasts Gastrointestinal (Abdomen): normal bowel sounds, soft, nontender, no hepatosplenomegaly Musculoskeletal: no cyanosis or clubbing, extremities motor strength 5/5 Skin: no rashes, warm and dry Results & Data Results & Data Vital Signs (Past 12 Hours) Vital Signs Temp Pulse Pulse Resp BP Pulse Ox O2 Del Method 12/05/22 03:20 66 16 98 Room Air 12/05/22 03:00 36.4 C L 67 18 146/79 H 100 Room Air 12/04/22 23:27 36.6 C 60 16 137/75 99 Nasal Cannula 12/04/22 22:52 61 12/04/22 20:00 Room Air 12/04/22 22:20 60 18 99 Nasal Cannula 12/04/22 19:50 36.4 C L 60 17 147/72 H 100 Nasal Cannula 12/04/22 19:21 67 18 99 Nasal Cannula O2 Flow Rate 12/05/22 03:20 12/05/22 03:00 12/04/22 23:27 3 12/04/22 22:52 12/04/22 20:00 12/04/22 22:20 2 12/04/22 19:50 3 12/04/22 19:21 2 (2) Congestive heart failure Heart failure chronicity: unspecified Heart failure type: unspecified Qualified Code(s): I50.9 - Heart failure, unspecified (3) CAD (coronary artery disease) Associated angina: without angina Coronary Disease-Associated Artery/Lesion type: [place] artery [place] vs. transplanted heart: [place] heart Qualified Code(s): I25.10 - Atherosclerotic heart disease of [place] coronary artery without angina pectoris (6) Pulmonary edema Chronicity: acute Qualified Code(s): J81.0 - Acute pulmonary edema (7) HTN (hypertension) Hypertension type: essential hypertension Qualified Code(s): I10 - Essential (primary) hypertension
[2022-12-05 07:33] LABS: Basophils # (auto) 0.04 K/uL (0-0.2); Basophils % (auto) 0.6 %; Eosinophils % (auto) 1.6 %; Hemoglobin 11.8 g/dl (12.0-16.0); Immature Granulocytes # (auto) 0.02 K/uL (0.01-0.20); Immature Granulocytes % (auto) 0.3 %; Lymphocytes # (auto) 0.72 K/uL (1.2-3.4); Lymphocytes % (auto) 11.3 %; Mean Corpuscular Hemoglobin 31.4 pg (25.0-34.0); Mean Corpuscular Hgb Conc 34.7 g/dL (32.0-36.0); Mean Corpuscular Volume 90.4 fL (80.0-100.0); Mean Platelet Volume 11.6 fL (9.4-12.4); Monocytes # (auto) 0.44 K/uL (0.11-0.59); Monocytes % (auto) 6.9 %; Neutrophils # (auto) 5.06 K/uL (1.40-6.50); Neutrophils % (auto) 79.3 %; Platelet Count 146 K/uL (130-400); RDW Coefficient of Variation 13.4 % (11.5-14.5); RDW Standard Deviation 44.4 fL (36.4-46.3); Red Blood Count 3.76 M/uL (4.20-5.40); White Blood Count 6.38 K/ul (4.8-10.8)
[2022-12-05 07:50] LABS: Albumin Globulin Ratio 1.1 (0.9-2); Albumin Level 3.4 gm/dl (3.4-5.0); BUN Creatinine Ratio 20.3 (10-20); Bilirubin,Total 0.7 mg/dl (0.2-1.0); Calcium 8.6 mg/dl (8.6-10.3); Creatinine Clr Calc Pharmacy 30.8 ml/min; Est GFR (African American) 50.4 ml/min; Est GFR (Non-African American) 43.5 ml/min; Globulin 3.2 gm/dl (2.5-4.0); Potassium 3.7 mmol/L (3.5-5.1); Total Protein 6.6 gm/dl (6.0-8.3)
[2022-12-05] MEDS: DOCUSATE SODIUM 100 MG CAP PO SCH ×2 (08:05→20:12)
[2022-12-05] MEDS: PANTOprazole 40 MG TAB PO SCH (08:06)
[2022-12-05] MEDS: METOPROLOL SUCC 25MG EXT REL TAB PO SCH (08:07)
[2022-12-05] MEDS: CYANOCOBALAMIN (B-12) 500 MCG TABLET PO SCH (08:07)
[2022-12-05] MEDS: ATORVASTATIN 40 MG TAB PO SCH (08:07)
[2022-12-05] MEDS: FUROSEMIDE 20 MG TAB PO SCH (08:08)
[2022-12-05] MEDS: FLUTICASONE/VILANTEROL 200/25MCG 14 PUFFS/INHALER INH SCH (08:08)
[2022-12-05] MEDS: VALSARTAN/SACUBITRIL 51/49 MG TAB PO SCH ×2 (08:08→20:13)
[2022-12-05] MEDS: HEPARIN SOD 5,000 UNIT/0.5 ML VIAL SQ SCH ×2 (08:09→20:13)
--- NOTE | 2022-12-05 08:38 | Electrocardiogram Report ---
Test Reason : Blood Pressure : / mmHG Vent. Rate : 143 BPM Atrial Rate : 174 BPM P-R Int : 000 ms QRS Dur : 138 ms QT Int : 348 ms P-R-T Axes : 000 -86 074 degrees QTc Int : 537 ms Suspect unspecified pacemaker failure Atrial fibrillation with rapid ventricular response with occasional ventricular-paced complexes Left axis deviation Non-specific intra-ventricular conduction block Cannot rule out Anteroseptal infarct , age undetermined Abnormal ECG When compared with ECG of 02-DEC-2022 17:30, Premature ventricular complexes are no longer Present Vent. rate has increased BY 64 BPM Atrial fibrillation now present Confirmed by Blane Guido ([id number]) on 12/05/2022 8:38:19 AM Referred By: REFERRED SELF Confirmed By:Blane Guido
--- NOTE | 2022-12-05 08:39 | Electrocardiogram Report ---
Test Reason : Blood Pressure : / mmHG Vent. Rate : 137 BPM Atrial Rate : 125 BPM P-R Int : 000 ms QRS Dur : 138 ms QT Int : 370 ms P-R-T Axes : 000 -88 059 degrees QTc Int : 558 ms Atrial fibrillation with intermittent Ventricular-paced rhythm Abnormal ECG When compared with ECG of 04-DEC-2022 15:18, Vent. rate has decreased BY 6 BPM Confirmed by Blane Guido ([id number]) on 12/05/2022 8:39:05 AM Referred By: REFERRED SELF Confirmed By:Blane Guido
[2022-12-05 09:09] LABS: Troponin I High Sensitivity 113.7 pg/ml (0-14)
[2022-12-05 13:45] LABS: Troponin I High Sensitivity 90.1 pg/ml (0-14)
--- NOTE | 2022-12-05 13:49 | Cardiology Consultation ---
Date of Consultation December 05, 2022 Assessment & Plan (1) Paroxysmal atrial fibrillation with RVR: (2) Elevated troponin I level: (3) CAD (coronary artery disease): (4) Cardiomyopathy, ischemic: (5) Biventricular cardiac pacemaker in situ: (6) HFrEF (heart failure with reduced ejection fraction): (7) Hypomagnesemia: Plan 82-year-old woman with history of ischemic cardiomyopathy, vasculopathy, biventricular pacemaker, and heart failure with reduced ejection fraction admitted with evidence of volume overload who subsequently developed apparently new onset paroxysmal atrial fibrillation with rapid ventricular response yesterday. She was treated with IV beta-blockers and amiodarone and converted to sinus rhythm, she is currently on a low-dose of beta-apolinar (metoprolol succinate 25 mg daily) and not on amiodarone. She was given IV magnesium for her hypomagnesemia. Currently, she appears euvolemic and she is hemodynamically stable and in sinus/paced rhythm. Since there is a clear correctable likely precipitant for her atrial fibrillation (hypomagnesemia), could continue with low-dose beta-apolinar and not necessarily use antiarrhythmics or anticoagulate. However, given that she will require varying degrees of diuresis in the future and could again be prone to electrolyte abnormalities, and given that she has poor cardiac and pulmonary reserve to tolerate tachydysrhythmias, need to consider initiation of amiodarone and anticoagulation with apixaban (which could be reduced dose given age of 82 and weight less than 60 kg). I did discuss with the patient potentially using weight-based sliding scale diuretic regimen at home, since simply cutting her diuretic dose in half could result in a subthreshold dosing and inadequate diuresis. Since there are upcoming discussions around the desired intensity of care level, defer decision on antiarrhythmic/anticoagulation to her primary microsoft dynamics developer, Dr. Yousuf Rivera. History of Present Illness Reason for Consultation: syncope, CHF exacerbation Requesting Physician: Keke Castro MD Attending Physician: Keke Castro MD History of Present Illness 82-year-old woman with CAD (LAD and circumflex stenting 2018), HFrEF (EF 20-25%) , left bundle branch block, vasculopathy (subclavian and carotid stenoses), status post biventricular pacemaker, and COPD who was admitted 12/02/2022 with 3 days of progressive dyspnea. She denied chest pain at any time and notes no ankle edema, but did note some degree of orthopnea and PND prompting her to call 911. At some point in the past week or so, she felt that she was diuresing too much a nd she cut her furosemide dose in half (from 20 mg to 10 mg daily). Of note, she went on a "salty food binge" for about a week prior to admission and gained nearly 10 pounds. Upon admission she was treated with a single dose of furosemide 20 mg IV and restarted on her oral furosemide 20 mg daily. Her home inhalers were continued and she received antibiotics for possible pneumonia. Yesterday, she developed atrial fibrillation with a rapid ventricular response lasting for several hours. She denied any subjective palpitations or chest pain during that time but did note difficulty breathing. She received IV beta- blockers and IV amiodarone and converted back to sinus/paced rhythm. Of note, her magnesium yesterday was 1.5, 2.0 today. At the time of my evaluation, she was comfortable at rest and noted that she had her "best night sleep in a year". As noted, she has not had any chest pain. She denied any dyspnea at rest, palpitations, or orthostatic symptoms. Allergies Allergy/AdvReac Type Severity Reaction Status Date / Time azithromycin [From Zithromax] Allergy Anaphylaxis Verified 12/02/22 23:05 Home Medications Medication Instructions Recorded Confirmed Type levothyroxine 25 mcg tablet 25 mcg PO Q OTHER DAY 07/17/19 12/02/22 History levothyroxine 50 mcg tablet 50 mcg PO Q OTHER DAY 07/17/19 12/02/22 History cyanocobalamin (vitamin B-12) 1,000 mcg PO DAILY #30 caps 11/10/19 12/02/22 Rx 1,000 mcg capsule ipratropium 20 mcg-albuterol 100 1 puffs inhalation Q6H PRN cough, 11/10/19 12/02/22 Rx mcg/actuation mist for inhalation wheeze, shortness of breath #4 (Combivent Respimat) grams fluticasone 250 mcg-salmeterol 50 1 inh inhalation BID 02/26/20 12/02/22 History mcg/dose blistr powdr for inhalation (Wixela Inhub) metoprolol succinate 25 mg 25 mg PO QAM #30 tabs 03/01/20 12/02/22 Rx tablet,extended release 24 hr (Toprol XL) atorvastatin 80 mg tablet 80 mg PO QAM 12/02/22 12/02/22 History cholecalciferol (vitamin D3) 25 25 mcg PO DAILY 12/02/22 12/02/22 History mcg (1,000 unit) tablet (Vitamin D3) cyclobenzaprine 10 mg tablet 10 mg PO BID PRN Muscle Spasm 12/02/22 12/02/22 History ferrous sulfate 325 mg (65 mg 325 mg PO DAILY 12/02/22 12/02/22 History iron) tablet pantoprazole 40 mg tablet,delayed 40 mg PO DAILY 12/02/22 12/02/22 History release sacubitril 49 mg-valsartan 51 mg 1 tab PO BID 12/02/22 12/02/22 History tablet (Entresto) tiotropium bromide 18 mcg capsule 1 cap inhalation DAILY 12/02/22 12/02/22 History with inhalation device (Spiriva with HandiHaler) Patient History Medical History Atrial tachycardia CAD (coronary artery disease) HTN (hypertension) Left bundle branch block STEMI (ST elevation myocardial infarction) Upper GI bleed Surgical History S/P AAA repair Family History Other Hypertension Social History Smoking Status: Current every day smoker Tobacco Type: Cigarettes Cigarettes Per Day: 20; Second Hand Exposure: Yes; Hx Alcohol Use: Yes Alcohol type: wine Hx Substance Use: No Preferred Language: Georgian Communication Ability: Effective Recycling Or Rubbish Collector Required: No Beliefs That Will Affect Care: None marital status: Current Living Situation: Spouse How many Children do You have: 2 Other Information That Helps Us Care for You: No Feels Safe at Home: Yes Safety Concerns: Feels Safe At This Time Assistive Devices: None Physical Exam Physical Exam: Thin elderly white female in no acute distress. Weight has not been reliable (bed scale) BP normotensive to mildly hypertensive Pulse 80 bpm and regular currently. Skin: no ecchymoses or generalized lesions. HEENT: unremarkable. Neck: Jugular venous pulse at the clavicle at 90 degrees, no carotid bruits. Lungs: Moderately decreased breath sounds with scattered "dry" crackles more prominent at the bases. No obvious wheezing. No accessory muscle use. Cardiac: regular rhythm, normal S1 and S2, 2/6 apical holosystolic murmur rating to the axilla, no diastolic murmur. Abdomen: benign. Extremities: no edema, pulses intact. Neurologic: normal affect and conversation, nonfocal. Results & Data Vital Signs (Past 12 Hours) c Laboratory Results High-sensitivity troponins initially 76 and 72, yesterday 88 and 92, today 113 and 90. Normal electrolytes, BUN 24, creatinine 1.18 (1.16 yesterday) Diagnostic Findings Echocardiogram 12/03/2022 showed EF 20 to 25% with moderate to severe global hypokinesis, posterior and inferior wall akinesis. Normal RV size and systolic function. Elevated pulmonary artery end-diastolic velocity suggests elevated pulmonary artery end-diastolic pressure. Moderate to severe mitral regurgitation with moderate tricuspid regurgitation and moderate pulmonary hypertension, inferior vena cava severely dilated. Compared with 2019 study, LV is more dilated with no change in systolic function or wall motion, mitral regurgitation severity is worse, RV systolic pressure is more elevated, and inferior vena cava is more dilated. ECG on admission showed atrial sensed ventricular paced rhythm with PVCs, rate 79 bpm. Compared with 10/05/2021 study, PVCs now present, no other change. ECGs yesterday showed atrial fibrillation with rapid ventricular response up to 143 bpm with intraventricular conduction delay. Chest x-ray on admission showed interstitial opacities in bilateral lower lung airspace opacities. Chest CT without contrast showed dependent atelectasis/scarring only. PG Care Time/CCT Total # of Minutes Spent Total Time Spent with Patient: Total time spent is greater than 50% in coordination of care (as documented) at patient's floor/unit and/or counseling patient: Coding Level of Care Code 27370 INT INP/OBS CARE 3MIN Diagnoses Paroxysmal atrial fibrillation with RVR I48.0 Elevated troponin I level R77.8 CAD (coronary artery disease) I25.10 Coronary Disease-Associated Artery/Lesion type: [place] artery [place] vs. transplanted heart: [place] heart Associated angina: without angina Cardiomyopathy, ischemic I25.5 Biventricular cardiac pacemaker in situ Z95.0 HFrEF (heart failure with reduced ejection fraction) I50.20 Hypomagnesemia E83.42 (3) CAD (coronary artery disease) Coronary Disease-Associated Artery/Lesion type: [place] artery [place] vs. transplanted heart: [place] heart Associated angina: without angina Qualified Code(s): I25.10 - Atherosclerotic heart disease of [place] coronary artery without angina pectoris
[2022-12-06] MEDS: ALBUT/IPRATROP 3MG/0.5MG NEB 3 ML VIAL NEB SCH ×3 (03:45→11:21)
[2022-12-06] MEDS: LEVOTHYROXINE SODIUM 50 MCG TABLET PO SCH (05:45)
[2022-12-06 05:50] LABS: Basophils # (auto) 0.03 K/uL (0-0.2); Basophils % (auto) 0.5 %; Eosinophils # (auto) 0.16 K/uL (0-0.50); Eosinophils % (auto) 2.4 %; Hematocrit (blood only) 32.9 % (37.0-47.0); Hemoglobin 11.7 g/dl (12.0-16.0); Immature Granulocytes # (auto) 0.02 K/uL (0.01-0.20); Immature Granulocytes % (auto) 0.3 %; Lymphocytes # (auto) 0.81 K/uL (1.2-3.4); Lymphocytes % (auto) 12.4 %; Mean Corpuscular Hemoglobin 32.1 pg (25.0-34.0); Mean Corpuscular Hgb Conc 35.6 g/dL (32.0-36.0); Mean Corpuscular Volume 90.1 fL (80.0-100.0); Mean Platelet Volume 11.8 fL (9.4-12.4); Monocytes # (auto) 0.41 K/uL (0.11-0.59); Monocytes % (auto) 6.3 %; Neutrophils # (auto) 5.12 K/uL (1.40-6.50); Neutrophils % (auto) 78.1 %; Platelet Count 175 K/uL (130-400); RDW Coefficient of Variation 13.5 % (11.5-14.5); RDW Standard Deviation 44.5 fL (36.4-46.3); Red Blood Count 3.65 M/uL (4.20-5.40); White Blood Count 6.55 K/ul (4.8-10.8)
[2022-12-06 06:06] LABS: BUN Creatinine Ratio 21.9 (10-20); Calcium 8.4 mg/dl (8.6-10.3); Creatinine Clr Calc Pharmacy 34.7 ml/min; Est GFR (African American) 58.1 ml/min; Est GFR (Non-African American) 50.1 ml/min; Magnesium 1.6 mg/dl (1.7-2.4); Potassium 3.7 mmol/L (3.5-5.1)
--- NOTE | 2022-12-06 06:48 | Hospitalist Progress Note ---
Date of Service December 06, 2022 Assessment & Plan (1) ANDRADE (dyspnea on exertion): Plan: 82 yo F with PMHx of CAD s/p angioplasty and stent (2018), HFrEF with EF 30% (2021) s/p biventricular pacemaker, high grade subclavian and L internal carotid stenosis, dyspnea on exertion, hypothyroid, GERD, and HTN presents with a few days of shortness of breath. Acute hypoxic resp failure -Likely multifactorial. CHF and underlying severe copd with concern of mucous plugging Acute on chronic systolic CHF exacerbation -Last echo EF 30% December 2021. Repeat echo on 12/03 showed EF of 20-25% -Fluid overload induced by dietary salt overload over the past week. -daily weights, low Na diet, fluid restriction 1.5L, monitor renal function -rise in creatinine on 12/05. will avoid anymore IV doses. continue home dose of 20mgs lasix. -Discussed with Dr. Rivera on 12/03/2022 - -recommends to adoption counselor on Salt restriction. -May consider SGLT2 inhibitor if pressures stabilize. -Continue home metoprolol and Sacubitril/Valsartan. A fib with RVR -12/04. Needed multiple dose of IV metoprolol, digoxin followed by amiodarone drip. Also received IV mag for hypomag. -Rate controlled today. -Seen by cardiology - suspect RVR sec to hypomag and since pt will require diuresis routinely, to add amiodarone and apixaban. -Will wait for palliative care and outpatient cardio team to weigh in. -Discussed with her outpatient structural mill supervisor - Dr. Rivera on 12/05 -- suggesting palliative care consult. -Consult added for palliative care. Severe COPD -Possibly with underlying mucous plugging contributing to hypoxic spells. -Flutter valve added 12/04 - helping with symptoms. -Continue home inhalers. Allergic reaction to azithromycin -Attempted giving azithromycin in ED for atypical coverage however patient had a red man syndrome like reaction. Azithromycin was d/c. Pt improved after administration of Benadryl. Medication added to allergy list. -Although history might be due to underlying heart issues rather than allergic reaction to medication. Constipation -Will add on Colace 100mg BID scheduled to help with constipation. Elevated troponin -trop 76 on admission, repeat troponin on 12/04 was 92. Repeat troponin this a.m. was 113. Has not yet peaked. -Will repeat troponin in 6 hours. -Suspect demand. Denies chest pain. Hypomagnesemia -replete and pending recheck. CAD s/p angioplasty and stent (2019) HTN -We will restart home Entresto and metoprolol. Hypothyroidism -cont. levothyroxine GERD -cont. pantoprazole CKD stage IIIa -Creatinine stable at 1.05 on 12/03. -Follows with nephrology as an outpatient. DVT ppx: Heparin FEN/GI: HH, low Na, fluid restriction Code Status: Full Dispo: PCU (2) Congestive heart failure: (3) CAD (coronary artery disease): (4) Hypothyroid: (5) Elevated troponin I level: (6) Pulmonary edema: (7) HTN (hypertension): (8) Constipation: Admission and Anticipated Discharge Date Admission Date: December 02, 2022 Results & Data Results & Data Vital Signs (Past 12 Hours) Vital Signs Temp Pulse Pulse Resp BP Pulse Ox O2 Del Method 12/06/22 03:48 68 18 98 Room Air 12/06/22 02:12 36.4 C L 78 18 142/79 H 95 Room Air 12/05/22 23:54 67 18 97 Room Air 12/05/22 21:59 76 12/05/22 22:32 36.6 C 69 18 150/85 H 98 Room Air 12/05/22 19:55 Room Air 12/05/22 19:41 36.6 C 73 18 158/87 H 99 Room Air 12/05/22 19:16 77 18 99 Room Air (2) Congestive heart failure Heart failure chronicity: unspecified Heart failure type: unspecified Qualified Code(s): I50.9 - Heart failure, unspecified (3) CAD (coronary artery disease) Associated angina: without angina Coronary Disease-Associated Artery/Lesion type: [place] artery [place] vs. transplanted heart: [place] heart Qualified Code(s): I25.10 - Atherosclerotic heart disease of [place] coronary artery without angina pectoris (6) Pulmonary edema Chronicity: acute Qualified Code(s): J81.0 - Acute pulmonary edema (7) HTN (hypertension) Hypertension type: essential hypertension Qualified Code(s): I10 - Essential (primary) hypertension
[2022-12-06] MEDS: MAGNESIUM SULFATE / D5W 1 GM/100 ML BAG IV SCH ×2 (07:15→09:05)
[2022-12-06] MEDS: ATORVASTATIN 40 MG TAB PO SCH (08:06)
[2022-12-06] MEDS: CYANOCOBALAMIN (B-12) 500 MCG TABLET PO SCH (08:06)
[2022-12-06] MEDS: FUROSEMIDE 20 MG TAB PO SCH (08:06)
[2022-12-06] MEDS: PANTOprazole 40 MG TAB PO SCH (08:06)
[2022-12-06] MEDS: METOPROLOL SUCC 25MG EXT REL TAB PO SCH (08:06)
[2022-12-06] MEDS: HEPARIN SOD 5,000 UNIT/0.5 ML VIAL SQ SCH (08:07)
[2022-12-06] MEDS: VALSARTAN/SACUBITRIL 51/49 MG TAB PO SCH (08:07)
[2022-12-06] MEDS: DOCUSATE SODIUM 100 MG CAP PO SCH (08:07)
[2022-12-06] MEDS: FLUTICASONE/VILANTEROL 200/25MCG 14 PUFFS/INHALER INH SCH (08:07)
--- NOTE | 2022-12-06 11:29 | Cardiology Progress Note ---
Date of Service December 06, 2022 Assessment & Plan (1) Paroxysmal atrial fibrillation with RVR: (2) HFrEF (heart failure with reduced ejection fraction): Plan IMPRESSIONS: 1.HFrEF exacerbation with EF on echo this admission 25% 2. Afib RVR 3.Status post ST elevation myocardial infarction July 19, 2019. 4. Cardiac catheterization with angioplasty and stenting of the left anterior descending artery and circumflex. 5. Cardiac catheterization 07/2019. Left main moderate caliber without significant luminal irregularities; LAD 80-90% mid segment, and 30-40% moderate size first diagonal midsegment disease; 40% mid circumflex, 99% acute distal stenosis of the circumflex just prior to the takeoff of OM2; RCA small to moderate-sized vessel, which is dominant. 6. Peripheral arterial disease with high-grade stenosis of the right subclavian with reversal of flow in her right vertebral artery, 70-79% stenosis of the left internal carotid artery. 7. Hypertension. 8. Hyperlipidemia 9. Significant elevation in creatinine with highest dose of Entresto 10. S/P BIV pacer Ms. Paynes afib was pretty clearly triggered by fluid overload and hypomagnesemia. We will have her start amiodarone 200 mg bid. She will need to come to the cardiology clinic in a week for an EKG. Recommend holding off on starting anticoagulation for now. Hopefully with amiodarone we can keep her from having any further episodes. She will let us know if she feels she has another episode and we will monitor her pacer data as well. She previously had one episode of afib on her pacer download in January of 2022 lasting an hour. Her high sensitivity troponin was elevated, likely secondary to demand ischemia in the setting of hypoxia and rapid rate. She did not have WMA. Her mitral valve regurgitation was read as moderate to severe, worse than previous. This may have appeared worse in her fluid overloaded state. In any event, she would not be a candidate for intervention on the valve. Ms. Azul's chest imaging did not show evidence of pulmonary congestion. Her output has not been recorded unfortunately and her weights are bed weights and not standing scale so may not be accurate. Her BNP was high however on admission. She notes that she was salt loading for a week and not taking her diuretic. Going forward she can take her furosemide on an as needed basis but she needs to weigh her self every day to do so. If she has weight gain of 2lbs in 24 hours or 5 lbs in a week she should take her diuretic until back to baseline. If she cannot get back to baseline within 3 days or so she will need to let us know so we can adjust her diuretics and follow her kidney function. She has a consultation in for palliative care which is appropriate. I did discuss with her that her disease is progressive. Talking with palliative care about what her goals are would be beneficial to keep her from having aggressive care she may not want and may not provide meaningful improvement in her condition. She appears back to her baseline and wishes to go home. From a cardiac perspective she can be discharged. Admission and Anticipated Discharge Date Admission Date: December 02, 2022 Subjective Ms. Azul is feeling much better today. No events overnight on the monitor. She is pacing. She notes that prior to her arrival in the ED she had felt palpitations like the episode of afib in the hospital about three times in the couple days prior. She admits to having been salt loading with eating out with friends every night for about a week and drinking bloody Chantale's. She had cut her Lasix in half and was not weighing herself. She is not sob today. No chest pain. No palpitations. No edema Review of Systems Review of Systems: All systems reviewed & are unremarkable except as noted in HPI & below Physical Exam Constitutional: WD/WN, vitals as above Respiratory: normal respiratory effort, lungs clear to auscultation Cardiovascular: RRR, no murmur, no edema Skin: no rashes, warm and dry Neurologic: moves all extremities and awake Psychiatric: A+Ox3, euthymic affect Results & Data Vital Signs (Past 12 Hours) Vital Signs Temp Pulse Pulse Resp BP Pulse Ox O2 Del Method 12/06/22 11:22 80 18 98 Room Air 12/06/22 11:17 36.5 C 75 18 143/78 H 98 Room Air 12/06/22 11:05 74 12/06/22 07:12 36.5 C 72 134/47 L 98 Room Air 12/06/22 07:05 70 18 98 Room Air 12/06/22 03:48 68 18 98 Room Air 12/06/22 02:12 36.4 C L 78 18 142/79 H 95 Room Air 12/05/22 23:54 67 18 97 Room Air
[2022-12-06] MEDS ORDERED: AMIODARONE 200 MG TAB PO SCH (11:30)
--- NOTE | 2022-12-06 12:49 | Palliative Care Consultation ---
Date of Consultation December 06, 2022 Assessment & Plan (1) Palliative care by specialist: Met with pt/family. Provided overview of Palliative Medicine, a subspecialty that provides specialized medical care for people living with a serious illness by offering a focus on quality of life. Palliative Medicine is often conflated with hospice: I advised patient/family that Palliative and hospice can be partners but we are not the same. It is important to understand the difference so that we may be informed, and not afraid. Palliative Medicine works to improve QOL through reduction of symptom burden/more control over their illness, for both the patient and family. Palliative medicine clinicians are board certified, specially-trained and another member of the patient's medical care team. We often provide an extra layer of support because our care is based on the needs of the patient, not the prognosis; as such, it's appropriate at any age/advancing stage of a serious illness and can be provided along with curative treatment. Palliative Medicine clinicians are also trained in advanced communication methodologies, to facilitate complex discussions about advanced illness planning, which are needed to help assure that the treatment choices match the patient's goals, aka delivering Goal Concordant care. Finally, we discussed that hospice is a visiting nurse service that focuses on care delivered at the very end of life for patients with terminal illness, with life expectancy less than 6 month. (2) Advanced care planning/counseling discussion: I met with pt for a face to face ACP discussion at the bedside x60min: We reviewed that all chronic/progressive disease has a declining trajectory over time where facets of patient self-identity and independence are lost. Every acute event leads to a further decline, resulting- many times, in a new baseline. Advised that the greatest priority is to determine what matters most to pt, then family and to develop a plan of care that is aligned with those priorities. We reviewed that advance illness planning conversations are conducted to review goals and expectations, support shared decision-making, and engage in disease specific advance care planning. This type of advance care planning is sometimes referred to as 'preparedness planning. It is used to review the risks and benefits of offered therapy, elicit and deepen understanding of the underlying illness and therapeutic options, ensure adequate psychosocial support, address existential concerns and coping, and engage in end-of-life planning. Preparedness planning is not meant to replace informed consent discussions. Palliative medicine plays a role in the process of deepening a patients understanding of this specific medical intervention and ensuring this treatment aligns with their goals of care remains a central tenet of the planning conversation. She shares that she wants to try the new med and see how she does. She and her have discussed ACP in past but she recognizes that needs revisiting now. No changes today. She tells me she is being dc home in an hour. (3) Paroxysmal atrial fibrillation with RVR: (4) HFrEF (heart failure with reduced ejection fraction): (5) Biventricular cardiac pacemaker in situ: (6) CAD (coronary artery disease): Associated angina: without angina Coronary Disease-Associated Artery/Lesion type: [place] artery [place] vs. transplanted heart: [place] heart Qualified Code(s): I25.10 - Atherosclerotic heart disease of [place] coronary artery without angina pectoris (7) Mitral regurgitation: Plan As noted above No changes. She wants to stay the course and no change to code status She has my contact info for follow up if needed She indicates a good awareness that things are changing and she has to make some tough decisions so her isn't left to guess what to do an struggle. Thank you for allowing us to participate in the ongoing care of this patient. Please don't hesitate to call or page with any additional concerns. Dr. Hilda Carrero DNP Director, Palliative Care History of Present Illness Reason for Consultation: cardiomyopathy, severe copd, chronic a fib Attending Physician: Keke Castro MD History of Present Illness Kp Azul is a 82yo female admitted 12/02/22 with 3 days progressive dyspnea likely due to dietary indiscretion/salt overload: she admits to salt loading via dining out with friends every night for over a week + drinking bloody Chantale's. She self reduced her Lasix dose by 50% and does not weight herself. She specifically denies SOB, chest pain, palpitations, edema, n/v/d/c She is anxious and somewhat worried Her troponin was elevated. Some opacities on CXR ? pneumonia, labs indicated hypomag. She has a chronic hx dyspnea and this has been attributed to her HF. She has now been found to have Afib with RVR she may need amiodarone therapy. PMH: CAD/severe with LAD and circumflex s/p angioplasty and stent (2018), HFrEF with EF 30% (confirmed on Echo December 2021) s/p biventricular pacemaker, high grade subclavian and L internal carotid stenosis, dyspnea on exertion, hypothyroid, GERD, and HTN. Palliative Medicine has been consulted to assist with clarifying the goals of care. She is followed by Cardiology/Dr Rivera. Cardiology consult 12/05/22 notes in part as follows: "However, given that she will require varying degrees of diuresis in the future and could again be prone to electrolyte abnormalities, and given that she has poor cardiac and pulmonary reserve to tolerate tachydysrhythmias, need toconsider initiation of amiodarone and anticoagulation with apixaban(which could be reduced dose given age of 82 and weight less than 60 kg). I did discuss with the patient potentiallyusing weight-based sliding scale diuretic regimen at home, since simply cutting her diuretic dose in half could result in a subthreshold dosing and inadequate diuresis. Since there are upcoming discussions around the desired intensity of care level, defer decision on antiarrhythmic/anticoagulation to her primary vice president of software engineering, Dr. Yousuf Rivera." Cardiology note today reads in part as follows: "She has a consultation in for palliative care which is appropriate. I did discuss with her that her disease is progressive. Talking with palliative care about what her goals would be beneficial to keep her from having aggressive care she may not want and may not provide meaningful improvement in her condition." Allergies Allergy/AdvReac Type Severity Reaction Status Date / Time azithromycin [From Zithromax] Allergy Anaphylaxis Verified 12/02/22 23:05 Home Medications Medication Instructions Recorded Confirmed Type levothyroxine 25 mcg tablet 25 mcg PO Q OTHER DAY 07/17/19 12/02/22 History levothyroxine 50 mcg tablet 50 mcg PO Q OTHER DAY 07/17/19 12/02/22 History cyanocobalamin (vitamin B-12) 1,000 mcg PO DAILY #30 caps 11/10/19 12/02/22 Rx 1,000 mcg capsule ipratropium 20 mcg-albuterol 100 1 puffs inhalation Q6H PRN cough, 11/10/19 12/02/22 Rx mcg/actuation mist for inhalation wheeze, shortness of breath #4 (Combivent Respimat) grams fluticasone 250 mcg-salmeterol 50 1 inh inhalation BID 02/26/20 12/02/22 History mcg/dose blistr powdr for inhalation (Wixela Inhub) metoprolol succinate 25 mg 25 mg PO QAM #30 tabs 03/01/20 12/02/22 Rx tablet,extended release 24 hr (Toprol XL) atorvastatin 80 mg tablet 80 mg PO QAM 12/02/22 12/02/22 History cholecalciferol (vitamin D3) 25 25 mcg PO DAILY 12/02/22 12/02/22 History mcg (1,000 unit) tablet (Vitamin D3) cyclobenzaprine 10 mg tablet 10 mg PO BID PRN Muscle Spasm 12/02/22 12/02/22 History ferrous sulfate 325 mg (65 mg 325 mg PO DAILY 12/02/22 12/02/22 History iron) tablet pantoprazole 40 mg tablet,delayed 40 mg PO DAILY 12/02/22 12/02/22 History release sacubitril 49 mg-valsartan 51 mg 1 tab PO BID 12/02/22 12/02/22 History tablet (Entresto) tiotropium bromide 18 mcg capsule 1 cap inhalation DAILY 12/02/22 12/02/22 History with inhalation device (Spiriva with HandiHaler) amiodarone 200 mg tablet 200 mg PO BIDM 30 days #60 tabs 12/06/22 Rx furosemide 20 mg tablet 20 mg PO QAM 30 days #30 tabs 12/06/22 Rx Patient History Medical History (Updated 12/06/22 @ 12:58 by Hilda Carrero DNP) Advanced care planning/counseling discussion Atrial tachycardia CAD (coronary artery disease) HTN (hypertension) Left bundle branch block Palliative care by specialist STEMI (ST elevation myocardial infarction) Upper GI bleed Surgical History S/P AAA repair Family History Other Hypertension Social History Smoking Status: Current every day smoker Tobacco Type: Cigarettes Cigarettes Per Day: 20; Second Hand Exposure: Yes; Hx Alcohol Use: Yes Alcohol type: wine Hx Substance Use: No Preferred Language: [place] Communication Ability: Effective Election Judge Required: No Beliefs That Will Affect Care: None marital status: Current Living Situation: Spouse How many Children do You have: 2 Feels Safe at Home: Yes Assistive Devices: None Review of Systems Review of Systems: All systems reviewed & are unremarkable except as noted in Subjective Physical Exam Constitutional: WD/WN, vitals as above Eyes: PERRL, conjunctivae normal, anicteric sclerae ENMT: external ear and nose normal, oropharynx normal Neck: trachea midline, no thyromegaly Respiratory: normal respiratory effort, lungs clear to auscultation Cardiovascular: tachy, irreg Gastrointestinal (Abdomen): normal bowel sounds, soft, nontender, no hepatosplenomegaly Musculoskeletal: no cyanosis or clubbing, extremities motor strength 5/5 Skin: no rashes, warm and dry Neurologic: PERRL, EOMI, accommodation nl, no face palsy, no dysarthria Psychiatric: A+Ox3, euthymic affect Results & Data Vital Signs (Past 12 Hours) Vital Signs Temp Pulse Pulse Resp BP Pulse Ox O2 Del Method 12/06/22 11:22 80 18 98 Room Air 12/06/22 11:17 36.5 C 75 18 143/78 H 98 Room Air 12/06/22 11:05 74 12/06/22 07:12 36.5 C 72 134/47 L 98 Room Air 12/06/22 07:05 70 18 98 Room Air 12/06/22 03:48 68 18 98 Room Air 12/06/22 02:12 36.4 C L 78 18 142/79 H 95 Room Air Laboratory Results reviewed Diagnostic Findings reviewed PG Care Time/CCT Total # of Minutes Spent Total Time Spent: 90 Total Time Spent with Patient: Total time spent is greater than 50% in coordination of care (as documented) at patient's floor/unit and/or counseling patient: Advanced Care Planning 94956 Advanced Care Planning 30 [place] [address] IN/OBS CONSULT LVL 5,80M Patient Type New History Comprehensive Exam Comprehensive Medical Decision Making High Complexity Diagnoses Palliative care by specialist Z51.5 Advanced care planning/counseling discussion Z71.89 Paroxysmal atrial fibrillation with RVR I48.0 HFrEF (heart failure with reduced ejection fraction) I50.20 Biventricular cardiac pacemaker in situ Z95.0 CAD (coronary artery disease) I25.10 Associated angina: without angina Coronary Disease-Associated Artery/Lesion type: [place] artery [place] vs. transplanted heart: [place] heart Mitral regurgitation I34.0 Additional Codes Advanced Care Planning - 53931 Advanced Care Planning 30 Min: 29458 Advanced Care Planning 30 Min ([id number])
--- NOTE | 2022-12-06 14:47 | Discharge Summary ---
Date of Service December 06, 2022 Admission HPI Per Admitting Provider 82 yo F with PMHx of CAD s/p angioplasty and stent (2018), HFrEF with EF 30% (2021) s/p biventricular pacemaker, high grade subclavian and L internal carotid stenosis, dyspnea on exertion, hypothyroid, and HTN presents with a few days of shortness of breath. Symptoms got worse last night and into the morning prompting her to call 911. Worse on exertion. Has had some orthopnea and productive cough. Denies fever, fatigue, headache, chest pain, abd pain, N/V/D, dysuria, lower extremity swelling. She does state over the last week she has had an increase in salt intake from eating out a lot. Compliant with medications and inhalers at home. Dry weight unknown. Admission Exam Per Admitting Provider Constitutional: in no acute distress, pleasant, intact memory. AOx3. Vitals as above. HEENT: No scleral injection or discharge. Moist mucous membranes. Neck: Supple without lymphadenopathy or thyromegaly. Trachea midline. No JVD. Lungs: Diminished breath sounds bilaterally. +wheezes, +rales. Cardiac: Regular rate and rhythm.No murmurs. No extremity edema. 2+ distal peripheral pulses. Abdomen: Soft, nontender, and nondistended.No guarding. No hepatosplenomegaly. MSK: No cyanosis or clubbing. Extremities motor strength 5/5. Skin: No rashes, warm, dry. Neurologic: no focal deficits Principal Diagnosis Acute on chronic systolic congestive heart failure exacerbation Discharge Exam Constitutional: well-appearing, no acute distress HEENT: NCAT, no conjunctival injection CV: regular rhythm, no murmur appreciated, extremities well-perfused, no LE edema Resp: CTABL, no wheezes/rales/rhonchi appreciated, no increased work of breathin g GI: soft, nondistended, nontender, BS normoactive MSK: no gross deformities appreciated Skin: warm, dry, no rash appreciated Neuro: alert, oriented, no focal neurologic deficit appreciated Discharge Data Allergies Allergy/AdvReac Type Severity Reaction Status Date / Time azithromycin [From Zithromax] Allergy Anaphylaxis Verified 12/02/22 23:05 Consultations 12/02/22 19:53 ED Decision to Admit Stat 12/05/22 08:05 Consult Cardiology Routine 12/05/22 14:09 Consult Palliative Care Routine Procedures Performed Chest X-Ray 12/02/22 17:57 XR chest 1V portable CLINICAL HISTORY: Dyspnea TECHNIQUE: Single frontal radiograph of the chest was obtained. Comparison: Comparison is made to chest radiograph 10/06/2021 FINDINGS: Pacemaker defibrillator is seen. Cardiomegaly is noted. Reticular interstitial opacities are seen. Superimposed airspace opacity in the bilateral lower lungs cannot be excluded. No evidence of pleural effusion or pneumothorax. IMPRESSION: Cardiomegaly is seen. Interstitial opacities are seen, bilateral lower lung airspace opacities cannot be excluded. ACT 112: Negative or not required by law. Electronically signed by: Jeanmarie Louis M.D. 12/02/2022 6:[address] 12/04/22 11:38 Exam(s): CT CHEST Without Contrast EXAM: CT Chest Without Intravenous Contrast CLINICAL HISTORY: Reason for exam: unintentional weight loss, extensive smoking hx. TECHNIQUE: Axial computed tomography images of the chest without intravenous contrast. CTDI is 6.9 mGy and DLP is 249.21 mGy-cm. Automated exposure control was utilized for the study. A dose lowering technique was utilized adhering to the principles of ALARA. COMPARISON: No relevant prior studies available. FINDINGS: Lungs: Unremarkable. No mass. No consolidation. Dependent atelectasis/scarring. Pleural space: Unremarkable. No pneumothorax. No significant effusion. Heart: Mild cardiomegaly. No significant pericardial effusion. No significant coronary artery calcifications. Bones/joints: Degenerative changes of the spine. No acute fracture. No dislocation. Soft tissues: Unremarkable. Vasculature: Atherosclerotic changes of the aorta. No thoracic aortic aneurysm. Lymph nodes: Unremarkable. No enlarged lymph nodes. Tubes, lines and devices: Pacemaker leads. IMPRESSION: No focal infiltrate, pleural effusion, or pneumothorax. Dependent atelectasis/scarring. Electronically signed by: Sotero Kennedy MD 12/04/22 19:51 PM Ordered Studies 12/04/22 11:38 CT chest diagnostic wo con [facility] 12/02/22 18:42 Blood Aerobic Blood Culture - Preliminary No growth in Aerobic bottle after 48 hours. 12/02/22 18:42 Blood Anaerobic Blood Culture - Preliminary No growth in Anaerobic bottle after 48 hours. 12/02/22 18:42 Blood Aerobic Blood Culture - Preliminary No growth in Aerobic bottle after 48 hours. 12/02/22 18:42 Blood Anaerobic Blood Culture - Final Labs 12/02/22 12/02/22 12/02/22 17:57 18:11 18:11 WBC 8.52 RBC 4.20 Hgb 13.4 Hct 38.5 MCV 91.7 MCH 31.9 MCHC 34.8 RDW Std Deviation 46.7 H RDW Coeff of Vanessa 13.8 Plt Count 166 MPV 10.8 Immature Gran % (Auto) 0.4 Neut % (Auto) 81.8 Lymph % (Auto) 10.3 Vilas % (Auto) 5.8 Eos % (Auto) 1.2 Baso % (Auto) 0.5 Neut # (Auto) 6.98 H Lymph # (Auto) 0.88 L Vilas # (Auto) 0.49 Eos # (Auto) 0.10 Baso # (Auto) 0.04 Immature Gran # (Auto) 0.03 PT 10.1 INR 0.9 APTT 28.0 PTT Ratio 1.0 VBG pH VBG pCO2 VBG pO2 VBG HCO3 VBG O2 Saturation VBG Base Excess Sodium Potassium Chloride Carbon Dioxide Anion Gap BUN Creatinine Est Cr Clr Drug Dosing Est GFR ( Amer) Est GFR (Non-Af Amer) BUN/Creatinine Ratio Glucose Lactate 1.4 Calcium Magnesium Total Bilirubin AST ALT Alkaline Phosphatase Troponin I High Sens B-Natriuretic Peptide Total Protein Albumin Globulin Albumin/Globulin Ratio Procalcitonin Urine Color Urine Appearance Urine pH Ur Specific Herman Urine Protein Urine Glucose (UA) Urine Ketones Urine Blood Urine Nitrite Urine Bilirubin Urine Urobilinogen Ur Leukocyte Esterase Urine WBC (Auto) Urine RBC (Auto) U Hyaline Cast (Auto) U Epithel Cells (Auto) Urine Bacteria (Auto) Nasal Screen MRSA (PCR) SARS-CoV-2 (PCR) Influenza Type A (PCR) Influenza Type B (PCR) RSV (RT-PCR) 12/02/22 12/02/22 12/02/22 18:11 18:11 18:20 WBC RBC Hgb Hct MCV MCH MCHC RDW Std Deviation RDW Coeff of Vanessa Plt Count MPV Immature Gran % (Auto) Neut % (Auto) Lymph % (Auto) Vilas % (Auto) Eos % (Auto) Baso % (Auto) Neut # (Auto) Lymph # (Auto) Vilas # (Auto) Eos # (Auto) Baso # (Auto) Immature Gran # (Auto) PT INR APTT PTT Ratio VBG pH VBG pCO2 VBG pO2 VBG HCO3 VBG O2 Saturation VBG Base Excess Sodium 136 Potassium 3.8 Chloride 104 Carbon Dioxide 26 Anion Gap 6 BUN 20 Creatinine 1.08 Est Cr Clr Drug Dosing 34.1 Est GFR ( Amer) 56.1 Est GFR (Non-Af Amer) 48.4 BUN/Creatinine Ratio 18.5 Glucose 114 H Lactate Calcium 9.0 Magnesium 1.6 L Total Bilirubin 0.8 AST 18 ALT 11 Alkaline Phosphatase 141 H Troponin I High Sens 76.2 H* B-Natriuretic Peptide > 4700 H Total Protein 6.8 Albumin 3.5 Globulin 3.3 Albumin/Globulin Ratio 1.1 Procalcitonin Urine Color Urine Appearance Urine pH Ur Specific Herman Urine Protein Urine Glucose (UA) Urine Ketones Urine Blood Urine Nitrite Urine Bilirubin Urine Urobilinogen Ur Leukocyte Esterase Urine WBC (Auto) Urine RBC (Auto) U Hyaline Cast (Auto) U Epithel Cells (Auto) Urine Bacteria (Auto) Nasal Screen MRSA (PCR) SARS-CoV-2 (PCR) NEGATIVE Influenza Type A (PCR) Negative Influenza Type B (PCR) Negative RSV (RT-PCR) Negative 12/02/22 12/02/22 12/02/22 18:20 18:42 20:49 WBC RBC Hgb Hct MCV MCH MCHC RDW Std Deviation RDW Coeff of Vanessa Plt Count MPV Immature Gran % (Auto) Neut % (Auto) Lymph % (Auto) Vilas % (Auto) Eos % (Auto) Baso % (Auto) Neut # (Auto) Lymph # (Auto) Vilas # (Auto) Eos # (Auto) Baso # (Auto) Immature Gran # (Auto) PT INR APTT PTT Ratio VBG pH 7.43 H VBG pCO2 33 L VBG pO2 53 VBG HCO3 22 VBG O2 Saturation 85.4 VBG Base Excess -1.7 Sodium Potassium Chloride Carbon Dioxide Anion Gap BUN Creatinine Est Cr Clr Drug Dosing Est GFR ( Amer) Est GFR (Non-Af Amer) BUN/Creatinine Ratio Glucose Lactate Calcium Magnesium Total Bilirubin AST ALT Alkaline Phosphatase Troponin I High Sens B-Natriuretic Peptide Total Protein Albumin Globulin Albumin/Globulin Ratio Procalcitonin < 0.05 Urine Color Dark Yellow Urine Appearance Clear Urine pH 6.0 Ur Specific Herman 1.017 Urine Protein 3+ H Urine Glucose (UA) Negative Urine Ketones Trace H Urine Blood Negative Urine Nitrite Negative Urine Bilirubin Negative Urine Urobilinogen Negative Ur Leukocyte Esterase Negative Urine WBC (Auto) 1-5 Urine RBC (Auto) 0-4 U Hyaline Cast (Auto) 1-5 U Epithel Cells (Auto) 20-30 H Urine Bacteria (Auto) Negative Nasal Screen MRSA (PCR) SARS-CoV-2 (PCR) Influenza Type A (PCR) Influenza Type B (PCR) RSV (RT-PCR) 12/02/22 12/03/22 12/03/22 23:11 07:00 07:00 WBC 7.42 RBC 4.05 L Hgb 12.8 Hct 37.1 MCV 91.6 MCH 31.6 MCHC 34.5 RDW Std Deviation 46.1 RDW Coeff of Vanessa 13.6 Plt Count 151 MPV 11.1 Immature Gran % (Auto) 0.3 Neut % (Auto) 79.5 Lymph % (Auto) 12.9 Vilas % (Auto) 6.2 Eos % (Auto) 0.7 Baso % (Auto) 0.4 Neut # (Auto) 5.90 Lymph # (Auto) 0.96 L Vilas # (Auto) 0.46 Eos # (Auto) 0.05 Baso # (Auto) 0.03 Immature Gran # (Auto) 0.02 PT INR APTT PTT Ratio VBG pH VBG pCO2 VBG pO2 VBG HCO3 VBG O2 Saturation VBG Base Excess Sodium 136 Potassium 3.6 Chloride 105 Carbon Dioxide 24 Anion Gap 7 BUN 18 Creatinine 1.05 Est Cr Clr Drug Dosing 33.1 Est GFR ( Amer) 58.1 Est GFR (Non-Af Amer) 50.1 BUN/Creatinine Ratio 17.1 Glucose 108 H Lactate Calcium 8.5 L Magnesium 1.5 L Total Bilirubin 0.6 AST 19 ALT 11 Alkaline Phosphatase 123 H Troponin I High Sens 72.4 H* B-Natriuretic Peptide Total Protein 6.6 Albumin 3.4 Globulin 3.2 Albumin/Globulin Ratio 1.1 Procalcitonin Urine Color Urine Appearance Urine pH Ur Specific Herman Urine Protein Urine Glucose (UA) Urine Ketones Urine Blood Urine Nitrite Urine Bilirubin Urine Urobilinogen Ur Leukocyte Esterase Urine WBC (Auto) Urine RBC (Auto) U Hyaline Cast (Auto) U Epithel Cells (Auto) Urine Bacteria (Auto) Nasal Screen MRSA (PCR) SARS-CoV-2 (PCR) Influenza Type A (PCR) Influenza Type B (PCR) RSV (RT-PCR) 12/03/22 12/03/22 12/04/22 07:00 Unknown 06:43 WBC RBC Hgb Hct MCV MCH MCHC RDW Std Deviation RDW Coeff of Vanessa Plt Count MPV Immature Gran % (Auto) Neut % (Auto) Lymph % (Auto) Vilas % (Auto) Eos % (Auto) Baso % (Auto) Neut # (Auto) Lymph # (Auto) Vilas # (Auto) Eos # (Auto) Baso # (Auto) Immature Gran # (Auto) PT INR APTT PTT Ratio VBG pH VBG pCO2 VBG pO2 VBG HCO3 VBG O2 Saturation VBG Base Excess Sodium 134 L Potassium 3.6 Chloride 104 Carbon Dioxide 21 Anion Gap 9 BUN 22 Creatinine 1.10 Est Cr Clr Drug Dosing 32.8 Est GFR ( Amer) 54.9 Est GFR (Non-Af Amer) 47.4 BUN/Creatinine Ratio 20.0 Glucose 131 H Lactate Calcium 8.5 L Magnesium 1.5 L Total Bilirubin 0.9 AST 21 ALT 14 Alkaline Phosphatase 126 H Troponin I High Sens B-Natriuretic Peptide > 4700 H Total Protein 6.7 Albumin 3.4 Globulin 3.3 Albumin/Globulin Ratio 1.0 Procalcitonin Urine Color Urine Appearance Urine pH Ur Specific Herman Urine Protein Urine Glucose (UA) Urine Ketones Urine Blood Urine Nitrite Urine Bilirubin Urine Urobilinogen Ur Leukocyte Esterase Urine WBC (Auto) Urine RBC (Auto) U Hyaline Cast (Auto) U Epithel Cells (Auto) Urine Bacteria (Auto) Nasal Screen MRSA (PCR) Negative SARS-CoV-2 (PCR) Influenza Type A (PCR) Influenza Type B (PCR) RSV (RT-PCR) 12/04/22 12/04/22 12/04/22 06:43 06:43 15:26 WBC 6.94 RBC 3.88 L Hgb 12.4 Hct 35.1 L MCV 90.5 MCH 32.0 MCHC 35.3 RDW Std Deviation 45.1 RDW Coeff of Vanessa 13.8 Plt Count 141 MPV 11.6 Immature Gran % (Auto) 0.3 Neut % (Auto) 81.3 Lymph % (Auto) 10.7 Vilas % (Auto) 6.9 Eos % (Auto) 0.4 Baso % (Auto) 0.4 Neut # (Auto) 5.64 Lymph # (Auto) 0.74 L Vilas # (Auto) 0.48 Eos # (Auto) 0.03 Baso # (Auto) 0.03 Immature Gran # (Auto) 0.02 PT INR APTT PTT Ratio VBG pH VBG pCO2 VBG pO2 VBG HCO3 VBG O2 Saturation VBG Base Excess Sodium 134 L Potassium 3.8 Chloride 104 Carbon Dioxide 20 L Anion Gap 10 BUN 25 H Creatinine 1.16 Est Cr Clr Drug Dosing 31.1 Est GFR ( Amer) 51.5 Est GFR (Non-Af Amer) 44.4 BUN/Creatinine Ratio 21.6 H Glucose 144 H Lactate Calcium 8.8 Magnesium Total Bilirubin AST ALT Alkaline Phosphatase Troponin I High Sens 88.2 H* D B-Natriuretic Peptide > 4700 H Total Protein Albumin Globulin Albumin/Globulin Ratio Procalcitonin Urine Color Urine Appearance Urine pH Ur Specific Herman Urine Protein Urine Glucose (UA) Urine Ketones Urine Blood Urine Nitrite Urine Bilirubin Urine Urobilinogen Ur Leukocyte Esterase Urine WBC (Auto) Urine RBC (Auto) U Hyaline Cast (Auto) U Epithel Cells (Auto) Urine Bacteria (Auto) Nasal Screen MRSA (PCR) SARS-CoV-2 (PCR) Influenza Type A (PCR) Influenza Type B (PCR) RSV (RT-PCR) 12/04/22 12/04/22 12/05/22 15:26 16:45 07:02 WBC 7.19 6.38 RBC 3.95 L 3.76 L Hgb 12.7 11.8 L Hct 35.9 L 34.0 L MCV 90.9 90.4 MCH 32.2 31.4 MCHC 35.4 34.7 RDW Std Deviation 46.5 H 44.4 RDW Coeff of Vanessa 13.9 13.4 Plt Count 157 146 MPV 11.4 11.6 Immature Gran % (Auto) 0.3 Neut % (Auto) 79.3 Lymph % (Auto) 11.3 Vilas % (Auto) 6.9 Eos % (Auto) 1.6 Baso % (Auto) 0.6 Neut # (Auto) 5.06 Lymph # (Auto) 0.72 L Vilas # (Auto) 0.44 Eos # (Auto) 0.10 Baso # (Auto) 0.04 Immature Gran # (Auto) 0.02 PT INR APTT PTT Ratio VBG pH VBG pCO2 VBG pO2 VBG HCO3 VBG O2 Saturation VBG Base Excess Sodium Potassium Chloride Carbon Dioxide Anion Gap BUN Creatinine Est Cr Clr Drug Dosing Est GFR ( Amer) Est GFR (Non-Af Amer) BUN/Creatinine Ratio Glucose Lactate Calcium Magnesium Total Bilirubin AST ALT Alkaline Phosphatase Troponin I High Sens 92.3 H* B-Natriuretic Peptide Total Protein Albumin Globulin Albumin/Globulin Ratio Procalcitonin Urine Color Urine Appearance Urine pH Ur Specific Herman Urine Protein Urine Glucose (UA) Urine Ketones Urine Blood Urine Nitrite Urine Bilirubin Urine Urobilinogen Ur Leukocyte Esterase Urine WBC (Auto) Urine RBC (Auto) U Hyaline Cast (Auto) U Epithel Cells (Auto) Urine Bacteria (Auto) Nasal Screen MRSA (PCR) SARS-CoV-2 (PCR) Influenza Type A (PCR) Influenza Type B (PCR) RSV (RT-PCR) 12/05/22 12/05/22 12/06/22 07:02 12:45 05:23 WBC 6.55 RBC 3.65 L Hgb 11.7 L Hct 32.9 L MCV 90.1 MCH 32.1 MCHC 35.6 RDW Std Deviation 44.5 RDW Coeff of Vanessa 13.5 Plt Count 175 MPV 11.8 Immature Gran % (Auto) 0.3 Neut % (Auto) 78.1 Lymph % (Auto) 12.4 Vilas % (Auto) 6.3 Eos % (Auto) 2.4 Baso % (Auto) 0.5 Neut # (Auto) 5.12 Lymph # (Auto) 0.81 L Vilas # (Auto) 0.41 Eos # (Auto) 0.16 Baso # (Auto) 0.03 Immature Gran # (Auto) 0.02 PT INR APTT PTT Ratio VBG pH VBG pCO2 VBG pO2 VBG HCO3 VBG O2 Saturation VBG Base Excess Sodium 136 Potassium 3.7 Chloride 103 Carbon Dioxide 26 Anion Gap 7 BUN 24 H Creatinine 1.18 Est Cr Clr Drug Dosing 30.8 Est GFR ( Amer) 50.4 Est GFR (Non-Af Amer) 43.5 BUN/Creatinine Ratio 20.3 H Glucose 119 H Lactate Calcium 8.6 Magnesium 2.0 Total Bilirubin 0.7 AST 26 ALT 19 Alkaline Phosphatase 158 H Troponin I High Sens 113.7 H* D 90.1 H* D B-Natriuretic Peptide Total Protein 6.6 Albumin 3.4 Globulin 3.2 Albumin/Globulin Ratio 1.1 Procalcitonin Urine Color Urine Appearance Urine pH Ur Specific Herman Urine Protein Urine Glucose (UA) Urine Ketones Urine Blood Urine Nitrite Urine Bilirubin Urine Urobilinogen Ur Leukocyte Esterase Urine WBC (Auto) Urine RBC (Auto) U Hyaline Cast (Auto) U Epithel Cells (Auto) Urine Bacteria (Auto) Nasal Screen MRSA (PCR) SARS-CoV-2 (PCR) Influenza Type A (PCR) Influenza Type B (PCR) RSV (RT-PCR) 12/06/22 05:23 WBC RBC Hgb Hct MCV MCH MCHC RDW Std Deviation RDW Coeff of Vanessa Plt Count MPV Immature Gran % (Auto) Neut % (Auto) Lymph % (Auto) Vilas % (Auto) Eos % (Auto) Baso % (Auto) Neut # (Auto) Lymph # (Auto) Vilas # (Auto) Eos # (Auto) Baso # (Auto) Immature Gran # (Auto) PT INR APTT PTT Ratio VBG pH VBG pCO2 VBG pO2 VBG HCO3 VBG O2 Saturation VBG Base Excess Sodium 136 Potassium 3.7 Chloride 104 Carbon Dioxide 22 Anion Gap 10 BUN 23 Creatinine 1.05 Est Cr Clr Drug Dosing 34.7 Est GFR ( Amer) 58.1 Est GFR (Non-Af Amer) 50.1 BUN/Creatinine Ratio 21.9 H Glucose 123 H Lactate Calcium 8.4 L Magnesium 1.6 L Total Bilirubin AST ALT Alkaline Phosphatase Troponin I High Sens B-Natriuretic Peptide Total Protein Albumin Globulin Albumin/Globulin Ratio Procalcitonin Urine Color Urine Appearance Urine pH Ur Specific Herman Urine Protein Urine Glucose (UA) Urine Ketones Urine Blood Urine Nitrite Urine Bilirubin Urine Urobilinogen Ur Leukocyte Esterase Urine WBC (Auto) Urine RBC (Auto) U Hyaline Cast (Auto) U Epithel Cells (Auto) Urine Bacteria (Auto) Nasal Screen MRSA (PCR) SARS-CoV-2 (PCR) Influenza Type A (PCR) Influenza Type B (PCR) RSV (RT-PCR) Hospital Course (1) ANDRADE (dyspnea on exertion): 82 yo F with PMHx of CAD s/p angioplasty and stent (2018), HFrEF with EF 30% (2021) s/p biventricular pacemaker, high grade subclavian and L internal carotid stenosis, dyspnea on exertion, hypothyroid, GERD, and HTN presents with a few days of shortness of breath. Acute hypoxic resp failure -Likely multifactorial. CHF and underlying severe copd with concern of mucous plugging. Acute on chronic systolic CHF exacerbation -Last echo EF 30% December 2021. Repeat echo on 12/03 showed EF of 20-25% -Fluid overload induced by dietary salt overload over the past week. -Cardiology recommended - salt restriction and to diurese with Lasix. Received multiple IV lasix doses -Euvolemic on discharge -Continue home 20 mg Lasix, metoprolol, and Entresto. -Can discuss about possible SGLT2 inhibitor as an outpatient. -Should have BMP at hospital follow-up appointment with PCP to check creatinine levels. A fib with RVR -12/04. Needed multiple dose of IV metoprolol, digoxin followed by amiodarone drip. Also received IV mag for hypomag. -Rate controlled by time of discharge. -Seen by cardiology - suspect RVR sec to hypomag and fluid overload. and since pt will require diuresis routinely, to add amiodarone and apixaban. -Outpatient cardiology team agreed with adding amiodarone 200mgs bid but to hold off on anticoagulation. -Also, Dr. Rivera on 12/05 -- suggesed palliative care consult. -Palliative care saw patient and patient would like to think at this time about the need for palliative care. -Patient should have follow-up with cardiology in 1 week after discharge. Severe COPD -Possibly with underlying mucous plugging contributing to hypoxic spells. -Flutter valve added 12/04 - helping with symptoms. -Continue home inhalers. Elevated troponin -trop 76 on admission, peaked at 113. -Suspect demand. Denies chest pain throughout entire admission. Hypomagnesemia -replete. -Repeat magnesium levels at hospital follow-up appointment with PCP. CAD s/p angioplasty and stent (2019) HTN -We will restart home Entresto and metoprolol. CKD stage IIIa -Creatinine stable at 1.05 on 12/03. -Follows with nephrology as an outpatient. (2) Congestive heart failure: (3) CAD (coronary artery disease): (4) Hypothyroid: (5) Elevated troponin I level: (6) Pulmonary edema: (7) HTN (hypertension): (8) Constipation: Total Time Total Time Spent Total Time Spent (In Minutes): 20 Discharge Plan Discharge Items Patient Disposition: Home - Self-Care Reason For Visit: SHORTNESS OF BREATH Discharge Diagnosis: Acute on chronic systolic congestive heart failure exacerbation Activity: Resume your previous activity Non-emergency contact: Primary Care Provider and Mason Tender Call non-emergency contact if: you have any medication questions, your pain is unusual for you, your pain is concerning for you and your temperature is above 101.5 Follow-up/Referrals: Yousuf Rivera, [Physician] - (f/u in one week, EKG) Courtney Naik MD [Primary Care Provider] - Diet: Regular Addtl Attending Provider Instructions: You were admitted to the hospital for acute on chronic systolic congestive heart failure as well as A-fib. You were treated with diuretics and a medication called amiodarone. A discharge summary will be sent to your primary care physician to ensure continuity of care. Please bring this discharge summary with you to your next office appointment so that your provider can review it at that time. Follow-up appointments: * Make a follow-up appointment with your PCP within the next week. It is very important that you follow up with them shortly after discharge from the hospital. 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 Rivera). Their office will reach out to you to schedule appointment. If you do not hear back from the office in 2-3 business days please call to make an appointment. * Keep all your follow-up appointments as already scheduled. If you cannot make an appointment, notify your provider. Medications: Your medication list has been reviewed and reconciled upon discharge to ensure accuracy and continuity of care. An updated list of all your medications is included with your hospital discharge paperwork. Please review this list closely, and make note of any changes. * We sent a new medication called amiodarone to your pharmacy. Take amiodarone (200 mg) 1 tab twice a day. * We refilled your medication called furosemide to your pharmacy. Take furosemide (20 mg) 1 tab every morning. * If you have any issues filling these prescriptions, please call [phone] and ask to leave a message for Dr. Singer. * Take your medications as instructed; do not skip a dose of your medicines. Make sure all of your doctors know every medicine you are taking (including [id number] medicines, vitamins, and supplements). Call your primary care provider before taking any new medicines (including over- the-counter medicines, vitamins, and supplements), because some of these may interact with your current medications, or may make your symptoms worse. Tell your primary care provider if you cannot afford your medications. CONTACT YOUR PRIMARY CARE PROVIDER if you experience any of the following: * Worsening of symptoms * Fever, chills, or fatigue * Difficulty following your treatment plan, or difficulty taking medications CALL 911 OR GO TO THE EMERGENCY DEPARTMENT if you experience any of the following: * Sudden, severe abdominal pain or nausea/vomiting * Severe chest pain, or chest pain that radiates (moves) to your jaw or arm * Sudden, severe shortness of breath or difficulty breathing Thank you for allowing us to participate in your care. Pending Studies at Discharge: No Stand-Alone Forms: [facility] [employer], Smoking Cessation Medications and DC Order Prescriptions: New amiodarone 200 mg Tablet 200 mg PO BIDM 30 Days Qty: 60 0RF furosemide 20 mg Tablet 20 mg PO QAM 30 Days Qty: 30 0RF Continued fluticasone propion-salmeterol [Wixela Inhub] 250-50 mcg/dose blister with device 1 inh INHALATION BID metoprolol succinate [Toprol XL] 25 mg tablet extended release 24 hr 25 mg PO QAM Qty: 30 0RF levothyroxine 50 mcg tablet 50 mcg PO Q OTHER DAY levothyroxine 25 mcg tablet 25 mcg PO Q OTHER DAY Combivent Respimat 20-100 mcg/actuation mist 1 puffs INH Q6H PRN (Reason: cough, wheeze, shortness of breath ) Qty: 4 0RF Rx Instructions: PT STATES "USES BID EVERY DAY". cyanocobalamin (vitamin B-12) 1,000 mcg capsule 1,000 mcg PO DAILY Qty: 30 11RF Rx Instructions: purchase [id number] Entresto 49-51 mg tablet 1 tab PO BID atorvastatin 80 mg tablet 80 mg PO QAM pantoprazole 40 mg tablet,delayed release (DR/EC) 40 mg PO DAILY cyclobenzaprine 10 mg tablet 10 mg PO BID PRN (Reason: Muscle Spasm) Spiriva with HandiHaler 18 mcg capsule, w/inhalation device 1 cap INHALATION DAILY ferrous sulfate 325 mg (65 mg iron) Tablet 325 mg PO DAILY cholecalciferol (vitamin D3) [Vitamin D3] 25 mcg (1,000 unit) Tablet 25 mcg PO DAILY Discharge Orders: Discharge Order (Routine); Ordered 12/06/22 Ordered By: Shady Singer Admission Data Admit Date/Time: 12/02/22 21:45 Attending Provider: Keke Castro Admit Provider: Lyle Olivera Primary Care Provider: Courtney Naik Other Providers: Sushant Crouch ; Alfredo Waldron ; Blane Guido ; Tim Sarkar ; Emanuel Carter ; Shyam Ellis ; John Leger Jr ; Daniel Levin ; Dianne Mccurdy ; Sheryl Rutledge ; Josh Carrington ; Robert Christian ; Cesar Malik ; Dori Dougherty ; Safia Peterson ; Harry Hannah ; Leon Majano ; Emanuel Bacon V. ; Rosina Harris Other Interventions: Discharge Summary Assessment (RN) Last Done: 12/06/22 14:35 Supervising Physician Co-Signing Physician Notes Resident Physician Supervision Note: I independently interviewed and examined the patient and verified the laboy history and physical, reviewed labs and image studies and agree with resident findings and care plan. Resident Activity Tracking Resident Involvement: Resident Care Provided Care Provided: Adult Hospital Medicine
--- NOTE | 2022-12-11 02:42 | Billing Data ---
Date of Service December 11, 2022 Coding Level of Care Code 71538 INT INP/OBS CARE
== END 2022-12-06 15:10 | disposition home or self-care (01) | DRG 291 ==
LOC: ED 17:22 → SUATTDRO 21:45 → 2S 21:45
DX: K59.00 Constipation, unspecified; J44.9 Chronic obstructive pulmonary disease, unspecified; J81.0 Acute pulmonary edema; I50.33 Acute on chronic diastolic (congestive) heart failure; Z88.1 Allergy status to other antibiotic agents; I25.5 Ischemic cardiomyopathy; E03.9 Hypothyroidism, unspecified; J96.01 Acute respiratory failure with hypoxia; K21.9 Gastro-esophageal reflux disease without esophagitis; I48.0 Paroxysmal atrial fibrillation; I13.0 Hypertensive heart and chronic kidney disease with heart failure and stage 1 through stage 4 chronic kidney disease, or unspecified chronic kidney disease; R77.8 Other specified abnormalities of plasma proteins; N18.32 Chronic kidney disease, stage 3b; Z79.899 Other long term (current) drug therapy; F17.210 Nicotine dependence, cigarettes, uncomplicated; T36.3X5A Adverse effect of macrolides, initial encounter; I44.7 Left bundle-branch block, unspecified; Z79.890 Hormone replacement therapy; I25.2 Old myocardial infarction; E83.42 Hypomagnesemia; Z95.5 Presence of coronary angioplasty implant and graft; J18.9 Pneumonia, unspecified organism; I25.10 Atherosclerotic heart disease of native coronary artery without angina pectoris

== ENCOUNTER 2022-12-09 18:10 | Inpatient (IN) ==
[2022-12-09] MEDS ORDERED: OPTIRAY 320 500ml IV ONE (18:16)
--- NOTE | 2022-12-09 18:20 | Emergency Department Note ---
Impression & Plan Acute CVA (cerebrovascular accident), Hypomagnesemia, Visual loss, Carotid stenosis ED Provider Note NAME: BREONNA BRITO AGE: 82 SEX: F : 1940 ARRIVES VIA: Ambulance INFORMANT: [Patient][ems] ED PROVIDER(S): [Shady Araujo MD] Patient first seen by me at 1810 as she was traveling from the ambulance down the hallway. CHIEF COMPLAINT: Stroke alert, vision loss HISTORY OF PRESENT ILLNESS: The patient is an 82-year-old female who was discharged from our hospital recently for CHF. She was discharged 3 days ago. She presents with the sudden loss of vision in her left eye around 1 hour and 45 minutes ago. The patient states that at 1630, she suddenly lost vision. There is no left eye pain. She has no chest pain. She had no speech slur or arm or leg weakness. No diff iculty with balance. She states that her right eye vision is intact. PMHx/PSHx: See Below SOCIAL HISTORY: See Below. PHYSICAL EXAM: GENERAL: Patient is in no acute distress. Thin and frail. HEENT: No acute trauma, normocephalic atraumatic, mucous membranes moist, no nasal congestion. The left pupil is round and equal in size to the right. The patient does see my hand when the right vision is occluded. I was able to see eyegrounds on the left, vascularity was present. Her pupils were quite small making the evaluation difficult. NECK: No stridor, no adenopathy, no meningismus, trachea is midline. LUNGS: There are crackles at the bases, no respiratory distress, breath sounds are equal. HEART: Without murmurs gallops or rubs, regular rate and rhythm. ABDOMEN: Soft, nontender, bowel sounds positive, no peritonitis. EXTREMITIES: No cyanosis or edema, full range of motion of all the joints without pain or difficulty, no signs for acute trauma. NEUROLOGIC: Oriented x 3, no extremity drift or facial droop, no speech slur. She can see shadows and some objects with her left eye vision, the right eye vision is completely intact. SKIN: No rash, no jaundice, no diaphoresis. DIFFERENTIAL DIAGNOSIS: Stroke, retinal artery occlusion, retinal detachment, vitreous hemorrhage, dysrhythmia, electrolyte imbalance, infection, and others. EMERGENCY DEPARTMENT COURSE/PROCEDURES: Prior/Outside records reviewed: EMS notes, recent discharge summary. Critical Care Note: I have personally spent 53 minutes of critical care time in the direct management of this patient. This includes bedside care, interpretation of diagnostic studies, and testing, discussion with consultants, patient, and family members, and other required patient management activities. This 53 minutes is in excess of all separately billable procedures. MEDICAL DECISION MAKING: There is no leukocytosis or concerning anemia. There is a normal platelet count. No coagulopathy. Sodium was somewhat low at 131. Creatinine mildly elevated at 1.23. Magnesium was low at 1.4. Alk phos was elevated, the remaining liver enzymes were unremarkable. Cardiac troponin was slightly elevated, this type of elevation has been documented with her recently. Of note, she has no chest pain. COVID test returned negative. Chest film showed some chronic change per my review, no pneumonia or pneumothorax. There was dye infiltration seen in the left upper extremity. Brain CT showed no acute bleed or mass effect. CT angio of the head and neck showed narrowing and significant stenosis to the left carotid. On exam, the patient had minimal vision with her left eye. She had no focal neurologic findings otherwise, no speech slur or facial droop. Given her presentation, a stroke alert was called prehospital. I did speak with Dr. Connolly of neurology. The patient was seen by neurology via telemedicine. Given the findings, the patient was felt a candidate for TNK. She was within the 3-hour window. She understood the risks and did consent to moving forward with TNK. Patient received a 500 cc saline bolus. She was given IV magnesium. Patient tolerated the TNK well. At 1 point during her ER stay, she began complaining of some right arm numbness. She underwent a repeat brain CT, no acute bleed was seen. The patient is in need of further stroke work-up. She does appear to have suffered a small stroke today affecting her left eye vision. Imaging does demonstrate significant stenosis to the left carotid. I did speak with case management, I talked at length with the patient. The on- call hospitalist was consulted. Discussion occurred with patient/family: We discussed the risks of IV thrombolytic therapy including a 5-7% risk of possible significant hemorrhage which can be fatal as well as about a 1% risk of angioedema. We also noted that IV thrombolytic therapy provides about a 30-40% probability of improved functional status and lower disability at 90 days than i f not treated with thrombolytic. After discussion regarding risks and benefits as well as the inclusion and exclusion criteria, the patient then consented to receive IV thrombolytic therapy. DISPOSITION: Patient's presentation and findings warrant a hospital stay. Past Med/Surg History Medical History Advanced care planning/counseling discussion Atrial tachycardia CAD (coronary artery disease) HTN (hypertension) Left bundle branch block Palliative care by specialist STEMI (ST elevation myocardial infarction) Upper GI bleed Surgical History S/P AAA repair Family History Other Hypertension Social History Smoking Status: Current every day smoker Tobacco Type: Cigarettes Cigarettes Per Day: 20; Second Hand Exposure: Yes; Do You Dip or Chew Tobacco: No; Tobacco Cessation Education Requested by Patient: No Hx Alcohol Use: Yes Alcohol type: wine Hx Substance Use: No Preferred Language: Panamanian Communication Ability: Impaired Bilingual Recruiter Required: No Beliefs That Will Affect Care: None marital status: Current Living Situation: Spouse How many Children do You have: 2 Other Information That Helps Us Care for You: No Feels Safe at Home: Yes Safety Concerns: Feels Safe At This Time Assistive Devices: None Allergies Allergies Allergy/AdvReac Type Severity Reaction Status Date / Time azithromycin [From Zithromax] Allergy Anaphylaxis Verified 12/09/22 20:49 Home Meds Home Medications Medication Instructions Recorded Confirmed levothyroxine 25 mcg tablet 25 mcg PO Q OTHER DAY 07/17/19 12/09/22 levothyroxine 50 mcg tablet 50 mcg PO Q OTHER DAY 07/17/19 12/09/22 fluticasone 250 mcg-salmeterol 50 1 inh inhalation BID 02/26/20 12/09/22 mcg/dose blistr powdr for inhalation (Wixela Inhub) atorvastatin 80 mg tablet 80 mg PO QAM 12/02/22 12/09/22 cholecalciferol (vitamin D3) 25 25 mcg PO DAILY 12/02/22 12/09/22 mcg (1,000 unit) tablet (Vitamin D3) cyclobenzaprine 10 mg tablet 10 mg PO BID PRN Muscle Spasm 12/02/22 12/09/22 ferrous sulfate 325 mg (65 mg 325 mg PO DAILY 12/02/22 12/09/22 iron) tablet pantoprazole 40 mg tablet,delayed 40 mg PO DAILY 12/02/22 12/09/22 release sacubitril 49 mg-valsartan 51 mg 1 tab PO BID 12/02/22 12/09/22 tablet (Entresto) tiotropium bromide 18 mcg capsule 1 cap inhalation DAILY 12/02/22 12/09/22 with inhalation device (Spiriva with HandiHaler) Previous Rx's Medication Instructions Recorded cyanocobalamin (vitamin B-12) 1,000 mcg PO DAILY #30 caps 11/10/19 1,000 mcg capsule ipratropium 20 mcg-albuterol 100 1 puffs inhalation Q6H PRN cough, 11/10/19 mcg/actuation mist for inhalation wheeze, shortness of breath #4 (Combivent Respimat) grams metoprolol succinate 25 mg 25 mg PO QAM #30 tabs 03/01/20 tablet,extended release 24 hr (Toprol XL) amiodarone 200 mg tablet 200 mg PO BIDM 30 days #60 tabs 12/06/22 furosemide 20 mg tablet 20 mg PO QAM 30 days #30 tabs 12/06/22 Results & Data (ED) Vital Signs Vital Signs - 24 hr 12/09/22 18:32 12/09/22 18:38 12/09/22 18:37 Temperature 36.4 C L Temperature Source Oral Pulse Rate 60 63 62 Pulse Rate from SpO2 Sensor Respiratory Rate 18 20 Respiratory Effort / Characteristics Non-Labored Spontaneous Respiratory Depth Normal Respiratory Pattern Regular Blood Pressure 150/88 H Blood Pressure Mean 108 Blood Pressure Position Lying Pulse Oximetry 98 100 Oxygen Delivery Method Room Air Room Air Sepsis Recent Fever Within 48 Hours No Sepsis New/Unexplained Change in Mental Status N/A Sepsis Action Taken by Nursing No Action Required 12/09/22 18:40 12/09/22 18:45 12/09/22 18:50 Temperature Temperature Source Pulse Rate 63 63 61 Pulse Rate from SpO2 Sensor Respiratory Rate 20 17 17 Respiratory Effort / Characteristics Respiratory Depth Respiratory Pattern Blood Pressure 151/93 H 146/94 H 150/81 H Blood Pressure Mean 112 111 104 Blood Pressure Position Pulse Oximetry 98 99 99 Oxygen Delivery Method Room Air Room Air Room Air Sepsis Recent Fever Within 48 Hours Sepsis New/Unexplained Change in Mental Status Sepsis Action Taken by Nursing 12/09/22 19:04 12/09/22 19:09 12/09/22 19:23 Temperature Temperature Source Pulse Rate 62 60 60 Pulse Rate from SpO2 Sensor Respiratory Rate 20 21 Respiratory Effort / Characteristics Respiratory Depth Respiratory Pattern Blood Pressure 101/66 85/55 L 126/70 Blood Pressure Mean 77 65 88 Blood Pressure Position Pulse Oximetry 96 96 99 Oxygen Delivery Method Room Air Room Air Room Air Sepsis Recent Fever Within 48 Hours Sepsis New/Unexplained Change in Mental Status Sepsis Action Taken by Nursing 12/09/22 19:30 12/09/22 19:36 12/09/22 19:45 Temperature Temperature Source Pulse Rate 62 62 Pulse Rate from SpO2 Sensor Respiratory Rate 20 15 Respiratory Effort / Characteristics Respiratory Depth Respiratory Pattern Blood Pressure 127/67 127/70 147/72 H Blood Pressure Mean 87 89 97 Blood Pressure Position Pulse Oximetry 99 97 Oxygen Delivery Method Room Air Room Air Sepsis Recent Fever Within 48 Hours Sepsis New/Unexplained Change in Mental Status Sepsis Action Taken by Nursing 12/09/22 19:59 12/09/22 20:00 12/09/22 20:00 Temperature Temperature Source Pulse Rate 62 62 66 Pulse Rate from SpO2 Sensor 66 Respiratory Rate 20 20 24 Respiratory Effort / Characteristics Respiratory Depth Respiratory Pattern Blood Pressure 139/70 135/70 Blood Pressure Mean 93 91 Blood Pressure Position Pulse Oximetry 98 98 98 Oxygen Delivery Method Room Air Room Air Sepsis Recent Fever Within 48 Hours Sepsis New/Unexplained Change in Mental Status Sepsis Action Taken by Nursing 12/09/22 20:14 12/09/22 20:16 12/09/22 20:28 Temperature Temperature Source Pulse Rate 61 62 60 Pulse Rate from SpO2 Sensor Respiratory Rate 18 20 22 Respiratory Effort / Characteristics Respiratory Depth Respiratory Pattern Blood Pressure 133/97 146/77 H 135/69 Blood Pressure Mean 109 100 91 Blood Pressure Position Pulse Oximetry 99 99 98 Oxygen Delivery Method Room Air Room Air Room Air Sepsis Recent Fever Within 48 Hours Sepsis New/Unexplained Change in Mental Status Sepsis Action Taken by Nursing 12/09/22 20:30 Temperature Temperature Source Pulse Rate 60 Pulse Rate from SpO2 Sensor Respiratory Rate 18 Respiratory Effort / Characteristics Respiratory Depth Respiratory Pattern Blood Pressure 133/64 Blood Pressure Mean 87 Blood Pressure Position Pulse Oximetry 98 Oxygen Delivery Method Room Air Sepsis Recent Fever Within 48 Hours Sepsis New/Unexplained Change in Mental Status Sepsis Action Taken by Long Term Medications Current Medication List: was personally reviewed by me Laboratory Data Attestation: I reviewed the patient's lab results. 12/09/22 19:11 12/09/22 18:59 Lab Results 12/09/22 12/09/22 12/09/22 Range/Units 18:31 18:45 18:59 WBC (4.8-10.8) K/ul RBC (4.20-5.40) M/uL Hgb (12.0-16.0) g/dl Hct (37.0-47.0) % MCV (80.0-100.0) fL MCH (25.0-34.0) pg MCHC (32.0-36.0) g/dL RDW Std Deviation (36.4-46.3) fL RDW Coeff of Vanessa (11.5-14.5) % Plt Count (130-400) K/uL MPV (9.4-12.4) fL Immature Gran % (Auto) % Neut % (Auto) % Lymph % (Auto) % [place] % (Auto) % Eos % (Auto) % Baso % (Auto) % Neut # (Auto) (1.40-6.50) K/uL Lymph # (Auto) (1.2-3.4) K/uL [place] # (Auto) (0.11-0.59) K/uL Eos # (Auto) (0-0.50) K/uL Baso # (Auto) (0-0.2) K/uL Immature Gran # (Auto) (0.01-0.20) K/uL PT 10.7 (9.0-12.0) Seconds INR 1.0 (0.9-1.1) APTT 28.5 (21.0-31.0) Seconds PTT Ratio 1.0 Sodium (136-145) mmol/L Potassium (3.5-5.1) mmol/L Chloride (98-107) mmol/L Carbon Dioxide (21-32) mmol/L Anion Gap (3-11) BUN (6-23) mg/dl Creatinine (0.6-1.2) mg/dl Est Cr Clr Drug Dosing ml/min Est GFR ( Amer) ml/min Est GFR (Non-Af Amer) ml/min BUN/Creatinine Ratio (10-20) Glucose (70-99(Fasting)) mg/dl POC Glucose 112 H (70-99) mg/dl Calcium (8.6-10.3) mg/dl Magnesium (1.7-2.4) mg/dl Total Bilirubin (0.2-1.0) mg/dl AST (13-39) U/L ALT (7-52) U/L Alkaline Phosphatase (34-104) U/L Troponin I High Sens (0-14) pg/ml Total Protein (6.0-8.3) gm/dl Albumin (3.4-5.0) gm/dl Globulin (2.5-4.0) gm/dl Albumin/Globulin Ratio (0.9-2) SARS-CoV-2, RNA, NAAT NEGATIVE (NEGATIVE) Blood Type Antibody Screen 12/09/22 12/09/22 12/09/22 Range/Units 18:59 19:11 19:11 WBC 7.24 (4.8-10.8) K/ul RBC 4.78 (4.20-5.40) M/uL Hgb 15.0 (12.0-16.0) g/dl Hct 42.9 (37.0-47.0) % MCV 89.7 (80.0-100.0) fL MCH 31.4 (25.0-34.0) pg MCHC 35.0 (32.0-36.0) g/dL RDW Std Deviation 44.9 (36.4-46.3) fL RDW Coeff of Vanessa 13.7 (11.5-14.5) % Plt Count 296 (130-400) K/uL MPV 11.3 (9.4-12.4) fL Immature Gran % (Auto) 0.3 % Neut % (Auto) 72.0 % Lymph % (Auto) 14.9 % [place] % (Auto) 8.3 % Eos % (Auto) 3.7 % Baso % (Auto) 0.8 % Neut # (Auto) 5.21 (1.40-6.50) K/uL Lymph # (Auto) 1.08 L (1.2-3.4) K/uL [place] # (Auto) 0.60 H (0.11-0.59) K/uL Eos # (Auto) 0.27 (0-0.50) K/uL Baso # (Auto) 0.06 (0-0.2) K/uL Immature Gran # (Auto) 0.02 (0.01-0.20) K/uL PT (9.0-12.0) Seconds INR (0.9-1.1) APTT (21.0-31.0) Seconds PTT Ratio Sodium 131 L (136-145) mmol/L Potassium 4.1 (3.5-5.1) mmol/L Chloride 100 (98-107) mmol/L Carbon Dioxide 23 (21-32) mmol/L Anion Gap 8 (3-11) BUN 30 H (6-23) mg/dl Creatinine 1.23 H (0.6-1.2) mg/dl Est Cr Clr Drug Dosing 30.2 ml/min Est GFR ( Amer) 48.0 ml/min Est GFR (Non-Af Amer) 41.4 ml/min BUN/Creatinine Ratio 24.4 H (10-20) Glucose 97 (70-99(Fasting)) mg/dl POC Glucose (70-99) mg/dl Calcium 8.9 (8.6-10.3) mg/dl Magnesium 1.4 L (1.7-2.4) mg/dl Total Bilirubin 0.8 (0.2-1.0) mg/dl AST 17 (13-39) U/L ALT 19 (7-52) U/L Alkaline Phosphatase 171 H (34-104) U/L Troponin I High Sens 38.6 H (0-14) pg/ml Total Protein 6.9 (6.0-8.3) gm/dl Albumin 3.4 (3.4-5.0) gm/dl Globulin 3.5 (2.5-4.0) gm/dl Albumin/Globulin Ratio 1.0 (0.9-2) SARS-CoV-2, RNA, NAAT (NEGATIVE) Blood Type AB Positive Antibody Screen NEGATIVE Administered Medications Discontinued Medications Tenecteplase 15 mg/ Syringe 3 mls @ 36 mls/min IV NOW ONE; Protocol Stop: 12/09/22 19:03 Last Admin: 12/09/22 19:06 Dose: 36 mls/min Documented By: FLOYD Co-signed By: KANCHAN Magnesium Sulfate/Dextrose (Magnesium Sulfate / D5w) 1 gm in 100 mls @ 100 mls/hr IV Q1H BRIJESH Stop: 12/09/22 21:41 Last Infusion: 12/09/22 21:24 Dose: 0 mls/hr Documented By: Admin: 12/09/22 20:24 Dose: 100 mls/hr Documented By: FLOYD Ioversol (Optiray 320 500ml) 106 ml IV ONCE ONE Stop: 12/09/22 18:17 Last Admin: 12/09/22 18:17 Dose: 106 ml Documented By: MEREDITH Sodium Chloride (Sodium Chloride 0.9% 10ml Flush) 20 ml IV NOW STA Stop: 12/09/22 18:52 Last Admin: 12/09/22 19:08 Dose: 20 ml Documented By: FLOYD Imaging Data Radiologist's Impression: Head CT 12/09/22 18:02 CT OF THE HEAD WITHOUT CONTRAST CLINICAL HISTORY: neuro deficit, acute stroke suspected COMPARISON STUDY: Head CT August 31, 2019. TECHNIQUE: Helical axial images of the head were obtained without IV contrast. Automated exposure control was utilized for the study. A dose lowering technique was utilized adhering to the principles of ALARA. FINDINGS: No acute intracranial hemorrhage, midline shift or mass effect is present. White matter hypodensity suggests small vessel disease. The ventricular system is unremarkable. The basal cisterns are patent. No extra-axial collections are present. There are no findings to suggest acute dural sinus thrombosis or acute territorial infarct. No significant calvarial abnormalities are present. Visualized portions of the sinuses and mastoid air cells are clear. IMPRESSION: No acute intracranial findings. ACT 112: Negative or not required by law. Electronically signed by: Danish Sanchez M.D. 12/09/2022 6:37 PM Head CTA 12/09/22 18:02 CTA ANGIOGRAPHY OF THE HEAD CLINICAL HISTORY: neuro deficit, acute stroke suspected COMPARISON STUDY: Head CT August 31, 2019. TECHNIQUE: Helical axial images of the head were obtained following uneventful intravenous administration of 106 cc of Optiray. Sagittal and coronal reconstructions were viewed as well as maximal intensity projections on an independent 3-D workstation. Automated exposure control was utilized for the study. A dose lowering technique was utilized adhering to the principles of ALARA. FINDINGS: There is age indeterminate occlusion of the left internal carotid artery with reconstitution at the level of the supraclinoid ICA. Several sylvian branches of the left MCA appear somewhat attenuated. The right M1, M2, A1 and A2 segments are patent. The intracranial portions of the bilateral vertebral arteries are patent. Posterior cerebral artery patent. There is no intracranial aneurysm. Please note that the head CT will be reported separately. IMPRESSION: 1. Age indeterminate occlusion of the left internal carotid artery with reconstitution at the level of the supraclinoid ICA. Several sylvian branches of the left middle cerebral artery appears somewhat attenuated. 2. No intracranial aneurysm. ACT 112: Negative or not required by law. Electronically signed by: Danish Sanchez M.D. 12/09/2022 6:49 PM Neck CTA 12/09/22 18:02 CT ANGIOGRAPHY OF THE NECK WITH CONTRAST CLINICAL HISTORY: neuro deficit, acute stroke suspected COMPARISON STUDY: CTA of the neck May 31, 2015. Technique: CT angiography of the carotid and vertebral arteries was obtained using Optiray and 3D reconstruction on an independent workstation. NASCET criteria was utilized. Automated exposure control was utilized for the study. A dose lowering technique was utilized adhering to the principles of ALARA. CT DOSE: 1072.27 mGy.cm Findings: No significant abnormalities are identified within visualized portions of the lung apices. A left subclavian pacer is incidentally noted. There is no cervical lymphadenopathy. No acute cervical spine fracture is present. There is extensive calcified plaque within visualized portions of the aortic arch. There is faint contrast within the proximal left common carotid artery. No opacification of the mid to distal left common carotid artery. There is no contrast within the cervical left internal carotid artery consistent with vessel occlusion. This is age indeterminate but new since CTA of May 31, 2015. There is reconstitution at the level of the supraclinoid left ICA, as shown on CTA of the head. There is occlusion of the brachiocephalic trunk which is unchanged since CT of May 31, 2015. There is reconstitution at the level of the origins of the right common carotid and subclavian arteries. There is mild plaque within the right carotid bifurcation without stenosis. The cervical right internal carotid artery is patent. Both vertebral arteries are large and patent. There is no dissection within the neck. There is no aneurysm within the neck. IMPRESSION: 1. 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 This vessel occlusion is age indeterminate but new since CTA of May 31, 2015. 2. Chronic occlusion of the brachiocephalic trunk with reconstitution at the level of the origins of the right common carotid and subclavian arteries, u nchanged since CTA of May 31, 2015. Patent right common carotid and cervical internal carotid arteries. 3. Large, patent bilateral vertebral arteries. 4. Extensive calcified plaque within the aortic arch. ACT 112: Negative or not required by law. Electronically signed by: Danish Sanchez M.D. 12/09/2022 6:45 PM Chest X-Ray 12/09/22 18:41 XR chest 1V portable CLINICAL HISTORY: stroke COMPARISON STUDY: Chest radiograph December 02, 2022. Chest CT December 04, 2022. FINDINGS: Radiodensity projects over the left upper arm. Left subclavian biventricular pacer/AICD is in place. Cardiomegaly is unchanged. Interstitial thickening is unchanged. This is likely chronic. There is no pneumothorax or pleural effusion. There is no consolidation to suggest pneumonia. The appearance of the chest is unchanged. IMPRESSION: 1. Radiodense material projecting over the left upper arm, partially imaged on this examination. This represents extravasated IV contrast from recent CTA. Continued monitoring of the infiltrate site is recommended. This finding was discussed with Dr. Araujo at time of dictation. 2. Cardiomegaly. No change in interstitial thickening, likely chronic. ACT 112: Negative or not required by law. Electronically signed by: Danish Sanchez M.D. 12/09/2022 7:[address] 12/09/22 19:47 CT OF THE HEAD WITHOUT CONTRAST CLINICAL HISTORY: worsening stroke symptoms post TNK COMPARISON STUDY: Head CT and CTA of the head performed earlier today. CT DOSE: 614.27 mGy.cm TECHNIQUE: Helical axial images of the head were obtained without IV contrast. Automated exposure control was utilized for the study. A dose lowering technique was utilized adhering to the principles of ALARA. FINDINGS: The sensitivity for detection of acute hemorrhage is diminished given intravascular contrast however no acute hemorrhage is identified on this exam. Ventricular system is stable. Basal cisterns are patent. There are no extra axial collections. White matter hypodensity suggests small vessel disease. There are no CT findings to suggest acute dural sinus thrombosis or acute territorial infarct. No significant calvarial abnormalities are identified. IMPRESSION: No acute intracranial findings. Sensitivity for detection of acute hemorrhage diminished given intravascular contrast but no hemorrhage identified. ACT 112: Negative or not required by law. Electronically signed by: Danish Sanchez M.D. 12/09/2022 8:05 PM Discharge Plan Visit Data Chief Complaint: Stroke Alert ED Provider: Shady Araujo Discharge Problem: Acute CVA (cerebrovascular accident), Hypomagnesemia, Visual loss, Carotid stenosis Patient Disposition: Admitted As Inpatient Condition: Serious Discharge Instructions Interventions: ED Discharge Assessment Last Done: 12/09/22 21:17 Carotid stenosis Qualifiers: Laterality: left Qualified Code(s): I65.22 - Occlusion and stenosis of left carotid artery
--- NOTE | 2022-12-09 18:39 | CT Scan Report ---
CT OF THE HEAD WITHOUT CONTRAST CLINICAL HISTORY: neuro deficit, acute stroke suspected COMPARISON STUDY: Head CT August 31, 2019. TECHNIQUE: Helical axial images of the head were obtained without IV contrast. Automated exposure con trol was utilized for the study. A dose lowering technique was utilized adhering to the principles o f ALARA. FINDINGS: No acute intracranial hemorrhage, midline shift or mass effect is present. White matter hyp odensity suggests small vessel disease. The ventricular system is unremarkable. The basal cisterns ar e patent. No extra-axial collections are present. There are no findings to suggest acute dural sinus thrombosis or acute territorial infarct. No significant calvarial abnormalities are present. Visualiz ed portions of the sinuses and mastoid air cells are clear. IMPRESSION: No acute intracranial findings. ACT 112: Negative or not required by law. Electronically signed by: Danish Sanchez M.D. 12/09/2022 6:37 PM
--- NOTE | 2022-12-09 18:47 | CT Scan Report ---
CT ANGIOGRAPHY OF THE NECK WITH CONTRAST CLINICAL HISTORY: neuro deficit, acute stroke suspected COMPARISON STUDY: CTA of the neck May 31, 2015. Technique: CT angiography of the carotid and vertebral arteries was obtained using Optiray and 3D rec onstruction on an independent workstation. NASCET criteria was utilized. Automated exposure control was utilized for the study. A dose lowering technique was utilized adhering to the principles of ALA RA. CT DOSE: 1072.27 mGy.cm Findings: No significant abnormalities are identified within visualized portions of the lung apices. A left subclavian pacer is incidentally noted. There is no cervical lymphadenopathy. No acute cervica l spine fracture is present. There is extensive calcified plaque within visualized portions of the ao rtic arch. There is faint contrast within the proximal left common carotid artery. No opacification o f the mid to distal left common carotid artery. There is no contrast within the cervical left interna l carotid artery consistent with vessel occlusion. This is age indeterminate but new since CTA of May [facility]2014. There is reconstitution at the level of the supraclinoid left ICA, as shown on CTA o f the head. There is occlusion of the brachiocephalic trunk which is unchanged since CT of May 31, 2015. There is reconstitution at the level of the origins of the right common carotid and subclav destin arteries. There is mild plaque within the right carotid bifurcation without stenosis. The cervica l right internal carotid artery is patent. Both vertebral arteries are large and patent. There is no dissection within the neck. There is no aneurysm within the neck. IMPRESSION: 1. 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 This vessel occlusion is age indeterminate but new since CTA of [facility] 2014. 2. Chronic occlusion of the brachiocephalic trunk with reconstitution at the level of the origins of the right common carotid and subclavian arteries, unchanged since CTA of May 31, 2015. Patent r ight common carotid and cervical internal carotid arteries. 3. Large, patent bilateral vertebral arteries. 4. Extensive calcified plaque within the aortic arch. ACT 112: Negative or not required by law. Electronically signed by: Danish Sanchez M.D. 12/09/2022 6:45 PM
[2022-12-09] MEDS ORDERED: SODIUM CHLORIDE 0.9% 10ML FLUSH IV STA (18:51)
[2022-12-09] MEDS ORDERED: STAT IV STA (18:51)
--- NOTE | 2022-12-09 18:51 | CT Scan Report ---
CTA ANGIOGRAPHY OF THE HEAD CLINICAL HISTORY: neuro deficit, acute stroke suspected COMPARISON STUDY: Head CT August 31, 2019. TECHNIQUE: Helical axial images of the head were obtained following uneventful intravenous administr ation of 106 cc of Optiray. Sagittal and coronal reconstructions were viewed as well as maximal inten sity projections on an independent 3-D workstation. Automated exposure control was utilized for the study. A dose lowering technique was utilized adhering to the principles of ALARA. FINDINGS: There is age indeterminate occlusion of the left internal carotid artery with reconstitutio n at the level of the supraclinoid ICA. Several sylvian branches of the left MCA appear somewhat atte nuated. The right M1, M2, A1 and A2 segments are patent. The intracranial portions of the bilateral v ertebral arteries are patent. Posterior cerebral artery patent. There is no intracranial aneurysm. Pl ease note that the head CT will be reported separately. IMPRESSION: 1. Age indeterminate occlusion of the left internal carotid artery with reconstitution at the level o f the supraclinoid ICA. Several sylvian branches of the left middle cerebral artery appears somewhat attenuated. 2. No intracranial aneurysm. ACT 112: Negative or not required by law. Electronically signed by: Danish Sanchez M.D. 12/09/2022 6:49 PM
[2022-12-09] MEDS ORDERED: No Aspirin within 24hrs of THROMBOLYTIC-Stroke PO SCH (19:00)
[2022-12-09] MEDS ORDERED: TENECTEPLASE 15 MG in SYRINGE 0 ML IV ONE (19:02)
[2022-12-09 19:30] LABS: Basophils # (auto) 0.06 K/uL (0-0.2); Basophils % (auto) 0.8 %; Eosinophils # (auto) 0.27 K/uL (0-0.50); Eosinophils % (auto) 3.7 %; Hematocrit (blood only) 42.9 % (37.0-47.0); Immature Granulocytes # (auto) 0.02 K/uL (0.01-0.20); Immature Granulocytes % (auto) 0.3 %; Lymphocytes # (auto) 1.08 K/uL (1.2-3.4); Lymphocytes % (auto) 14.9 %; Mean Corpuscular Hemoglobin 31.4 pg (25.0-34.0); Mean Corpuscular Volume 89.7 fL (80.0-100.0); Mean Platelet Volume 11.3 fL (9.4-12.4); Monocytes % (auto) 8.3 %; Neutrophils # (auto) 5.21 K/uL (1.40-6.50); Platelet Count 296 K/uL (130-400); RDW Coefficient of Variation 13.7 % (11.5-14.5); RDW Standard Deviation 44.9 fL (36.4-46.3); Red Blood Count 4.78 M/uL (4.20-5.40); White Blood Count 7.24 K/ul (4.8-10.8)
--- NOTE | 2022-12-09 19:38 | XRay Report ---
XR chest 1V portable CLINICAL HISTORY: stroke COMPARISON STUDY: Chest radiograph December 02, 2022. Chest CT December 04, 2022. FINDINGS: Radiodensity projects over the left upper arm. Left subclavian biventricular pacer/AICD is in place. Cardiomegaly is unchanged. Interstitial thickening is unchanged. This is likely chronic. T here is no pneumothorax or pleural effusion. There is no consolidation to suggest pneumonia. The appe arance of the chest is unchanged. IMPRESSION: 1. Radiodense material projecting over the left upper arm, partially imaged on this examination. This represents extravasated IV contrast from recent CTA. Continued monitoring of the infiltrate site is recommended. This finding was discussed with Dr. Araujo at time of dictation. 2. Cardiomegaly. No change in interstitial thickening, likely chronic. ACT 112: Negative or not required by law. Electronically signed by: Danish Sanchez M.D. 12/09/2022 7:36 PM
[2022-12-09 19:40] LABS: Albumin Level 3.4 gm/dl (3.4-5.0); BUN Creatinine Ratio 24.4 (10-20); Bilirubin,Total 0.8 mg/dl (0.2-1.0); Calcium 8.9 mg/dl (8.6-10.3); Creatinine Clr Calc Pharmacy 30.2 ml/min; Est GFR (Non-African American) 41.4 ml/min; Globulin 3.5 gm/dl (2.5-4.0); Magnesium 1.4 mg/dl (1.7-2.4); Potassium 4.1 mmol/L (3.5-5.1); Total Protein 6.9 gm/dl (6.0-8.3)
[2022-12-09] MEDS ORDERED: MAGNESIUM SULFATE / D5W 1 GM/100 ML BAG IV SCH (19:42)
[2022-12-09 19:46] LABS: Troponin I High Sensitivity 38.6 pg/ml (0-14)
[2022-12-09 19:51] LABS: Partial Thromboplastin Time 28.5 Seconds (21.0-31.0); Prothrombin Time 10.7 Seconds (9.0-12.0)
--- NOTE | 2022-12-09 20:07 | CT Scan Report ---
CT OF THE HEAD WITHOUT CONTRAST CLINICAL HISTORY: worsening stroke symptoms post TNK COMPARISON STUDY: Head CT and CTA of the head performed earlier today. CT DOSE: 614.27 mGy.cm TECHNIQUE: Helical axial images of the head were obtained without IV contrast. Automated exposure con trol was utilized for the study. A dose lowering technique was utilized adhering to the principles o f ALARA. FINDINGS: The sensitivity for detection of acute hemorrhage is diminished given intravascular contras t however no acute hemorrhage is identified on this exam. Ventricular system is stable. Basal cistern s are patent. There are no extra axial collections. White matter hypodensity suggests small vessel di sease. There are no CT findings to suggest acute dural sinus thrombosis or acute territorial infarct. No significant calvarial abnormalities are identified. IMPRESSION: No acute intracranial findings. Sensitivity for detection of acute hemorrhage diminished given intravascular contrast but no hemorrhage identified. ACT 112: Negative or not required by law. Electronically signed by: Danish Sanchez M.D. 12/09/2022 8:05 PM
--- NOTE | 2022-12-09 20:34 | History & Physical Report ---
Date of Service December 09, 2022 Assessment & Plan (1) Stroke: Plan: -Admit to the ICU -The patient is currently afebrile, hemodynamically stable, and stable on RA -Had loss of vision in the left eye at approximately 1600 today, stroke alert called in the ED, Ste[facility] Telestroke recommended TNK administration -At this time the cause of her stroke is unknown but she has multiple risk factors including recent afib-RVR during her last admission, not currently on anticoagulation, and her known left subclavian and left internal carotid stenosis -Hold all anticoagulation at this time with administration of TNK -Neuro checks q4h -BP parameters ordered -Continue to monitor on tele and pulse oximetry -BL SCD's for DVT PPX (2) Hypomagnesemia: Plan: -Noted to be 1.4 in the ED -Likely due to her Diuretics -S/P 2 gm IV mag/sulfate -Hold lasix for now as she is euvolemic -Monitor am mag level (3) Hyponatremia: Plan: -Noted to be 131 today -Likely due to poor oral intake and lasix use -Hold lasix for now -NPO at this time due to stroke, would fluid restrict her and monitor am sodium level (4) HFrEF (heart failure with reduced ejection fraction): Plan: -Currently Euvolemic -Hold lasix with hypomag and hyponatremia -Continue metoprolol, Entresto, (5) Elevated troponin I level: Plan: -Initial high sen trop elevated at 38 -Patient without chest pain or acute ECG changes -Will repeat another high sen trop STAT and monitor on tele (6) Hypothyroid: Plan: -Continue levothyroxine (7) HTN (hypertension): Plan: -Stable -Continue metoprolol (8) CAD (coronary artery disease): Plan: -Continue atorvastatin (9) COPD (chronic obstructive pulmonary disease): Plan: -Stable on RA -Continue home breathing treatments and incentive spirometry Plan The arcadio was discussed with Dr. Leal at the time of the admission History of Present Illness Chief Complaint: Left eye vision loss Primary Care Provider: Courtney Naik MD Kp is an 82 yo F with PMHx of CAD s/p angioplasty and stent (2018), HFrEF with EF 30% (2021) s/p biventricular pacemaker, high grade subclavian and L internal carotid stenosis, dyspnea on exertion, hypothyroid, and HTN who presented to the [facility] ED on 12/09/22 due to sudden vision loss in the left eye at approximately 4:30 pm today. In the ED she was found to be afebrile, hemo dynamically stable, and stable on RA. A stroke alert was called after ED evaluation. CT of the head was negative for acute findings. CTA of the head/neck was read as "1. Age indeterminate occlusion of the left internal carotid artery with reconstitution at the level of the supraclinoid ICA. Several sylvian branches of the left middle cerebral artery appears somewhat attenuated. 2. No intracranial aneurysm.". Chest xray was read as "1. Radiodense material projecting over the left upper arm, partially imaged on this examination. This represents extravasated IV contrast from recent CTA. Continued monitoring of the infiltrate site is recommended. This finding was discussed with Dr. Araujo at time of dictation. 2. Cardiomegaly. No change in interstitial thickening, likely chronic.". [facility]NK administration which was given at approximately 1906. Per the ED staff, the patient had some right eye paresthesias S/P TNK administration and a repeat head CT was obtained, it was negative for acute hemorrhage. CBC was WNL, Cr is stable at 1.23, sodium noted to be 131, mag at 1.4, initial high sen trop of 38.6, and she was found to be covid 19 negative. Prior to admission the patient was ordered 2 bag IV mag/sulfate. The patient was recently admitted to [facility] from 12/02-12/06 due to acute hypoxic respiratory failure thought to be due to CHF exacerbation. She was diuresed with IV lasix and was noted to be Euvolemic at the time of discharge. Her admission was complicated due to afib with RVR on 12/04. Cardiology was consulted and thought her aifb RVR was due to her low mag levels and acute CHF exacerbation. The inpatient cardiology team suggested starting amiodarone and to consider starting anticoagulation with Eliqus. Per their note on 12/05, the inpatient Cardiology team deferred the decision to stat antiarrhythmics/anticoagulation to the outpatient Cardiology team. Per the DC summary on it was determined that the patient should continue amiodarone but hold anticoagulation at that time. Per review of outpatient notes from [facility], the patient's pacemaker was interrogated. She did not have further episodes of afib from 12/04 until , which is why they elected to hold anticoagulation at that time. At the time of the exam the patient was sitting in bed in no acute distress. She states she was in her normal state of health this am. She was working on the computer this afternoon when she started to noticed blurry vision. She covered both eyes independently and noticed that she had complete loss of vision in her left eye, so she called EMS. At the time of my exam she states that her vision is blurry in the left eye but is improving compared to arrival. She has no other complaints at this time. We discussed code status, at this time she wishes to be a conditional code with only a trial of intubation in the case of respiratory arrest. Please refer to Dr. Leal's attestation for any changes to the treatment plan Allergies Allergy/AdvReac Type Severity Reaction Status Date / Time azithromycin [From Zithromax] Allergy Anaphylaxis Verified 12/09/22 20:49 Home Medications Medication Instructions Recorded Confirmed Type levothyroxine 25 mcg tablet 25 mcg PO Q OTHER DAY 07/17/19 12/09/22 History levothyroxine 50 mcg tablet 50 mcg PO Q OTHER DAY 07/17/19 12/09/22 History cyanocobalamin (vitamin B-12) 1,000 mcg PO DAILY #30 caps 11/10/19 12/09/22 Rx 1,000 mcg capsule ipratropium 20 mcg-albuterol 100 1 puffs inhalation Q6H PRN cough, 11/10/19 12/09/22 Rx mcg/actuation mist for inhalation wheeze, shortness of breath #4 (Combivent Respimat) grams fluticasone 250 mcg-salmeterol 50 1 inh inhalation BID 02/26/20 12/09/22 History mcg/dose blistr powdr for inhalation (Wixela Inhub) metoprolol succinate 25 mg 25 mg PO QAM #30 tabs 03/01/20 12/09/22 Rx tablet,extended release 24 hr (Toprol XL) atorvastatin 80 mg tablet 80 mg PO QAM 12/02/22 12/09/22 History cholecalciferol (vitamin D3) 25 25 mcg PO DAILY 12/02/22 12/09/22 History mcg (1,000 unit) tablet (Vitamin D3) cyclobenzaprine 10 mg tablet 10 mg PO BID PRN Muscle Spasm 12/02/22 12/09/22 History ferrous sulfate 325 mg (65 mg 325 mg PO DAILY 12/02/22 12/09/22 History iron) tablet pantoprazole 40 mg tablet,delayed 40 mg PO DAILY 12/02/22 12/09/22 History release sacubitril 49 mg-valsartan 51 mg 1 tab PO BID 12/02/22 12/09/22 History tablet (Entresto) tiotropium bromide 18 mcg capsule 1 cap inhalation DAILY 12/02/22 12/09/22 History with inhalation device (Spiriva with HandiHaler) amiodarone 200 mg tablet 200 mg PO BIDM 30 days #60 tabs 12/06/22 12/09/22 Rx furosemide 20 mg tablet 20 mg PO QAM 30 days #30 tabs 12/06/22 12/09/22 Rx Past Med/Surg History Medical History Advanced care planning/counseling discussion Atrial tachycardia CAD (coronary artery disease) HTN (hypertension) Left bundle branch block Palliative care by specialist STEMI (ST elevation myocardial infarction) Upper GI bleed Surgical History S/P AAA repair Family History Other Hypertension Social History Smoking Status: Current every day smoker Tobacco Type: Cigarettes Cigarettes Per Day: 20; Second Hand Exposure: Yes; Do You Dip or Chew Tobacco: No; Tobacco Cessation Education Requested by Patient: No Hx Alcohol Use: Yes Alcohol type: wine Hx Substance Use: No Preferred Language: German Communication Ability: Impaired Relay Dispatcher Required: No Beliefs That Will Affect Care: None marital status: Current Living Situation: Spouse How many Children do You have: 2 Other Information That Helps Us Care for You: No Feels Safe at Home: Yes Safety Concerns: Feels Safe At This Time Assistive Devices: None Physical Exam Physical Exam: Physical Exam: General: In no acute distress, stated age, malnourished, chronically ill- appearing HEENT: Normocephalic, atraumatic, no scleral icterus, pupils around round, symmetrical, and reactive to light, moist mucus membranes, trachea midline, no t hyromegaly Chest/Pulm: No respiratory distress, symmetrical chest expansion, expiratory wheezing noted throughout Cardiac: RRR, no murmurs noted Abdomen: Negative for ascites and bruising, normoactive bowel sounds, soft, non-tender to palpation throughout Musculoskeletal: Symmetrical and without signs of acute trauma, upper and lower extremities with full ROM, no atrophy, spasticity, or flaccidity Extremities: Radial, dorsalis pedis, and posterior tibial pulses are intact and symmetrical, no edema noted in the BL LE's Skin: Warm, dry, no rashes , lesions, or scars noted Neuro: Alert and oriented to person, place, month, year, and president, CN II-XII tested, patient currently with blurry vision in the left eye but able to differentiate number of fingers I am holding up, otherwise CN's are intact, Cere bellar testing WNL, negative pronator drift, no tremors noted Psych: No acute distress, calm and cooperative during the exam Results & Data Results & Data Vital Signs (Past 12 Hours) Vital Signs Temp Pulse Resp BP Pulse Ox O2 Del Method 12/09/22 20:16 62 20 146/77 H 99 Room Air 12/09/22 20:14 61 18 133/97 99 Room Air 12/09/22 20:00 66 24 98 12/09/22 20:00 62 20 135/70 98 Room Air 12/09/22 19:59 62 20 139/70 98 Room Air 12/09/22 19:45 62 15 147/72 H 97 Room Air 12/09/22 19:36 127/70 12/09/22 19:30 62 20 127/67 99 Room Air 12/09/22 19:23 60 21 126/70 99 Room Air 12/09/22 19:09 60 85/55 L 96 Room Air 12/09/22 19:04 62 20 101/66 96 Room Air 12/09/22 18:50 61 17 150/81 H 99 Room Air 12/09/22 18:45 63 17 146/94 H 99 Room Air 12/09/22 18:40 63 20 151/93 H 98 Room Air 12/09/22 18:37 62 20 150/88 H 100 Room Air 12/09/22 18:38 63 12/09/22 18:32 36.4 C L 60 18 98 Room Air Laboratory Results Abnormal lab results 12/09/22 12/09/22 12/09/22 Range/Units 18:31 18:59 19:11 Lymph # (Auto) 1.08 L (1.2-3.4) K/uL Schuyler # (Auto) 0.60 H (0.11-0.59) K/uL Sodium 131 L (136-145) mmol/L BUN 30 H (6-23) mg/dl Creatinine 1.23 H (0.6-1.2) mg/dl BUN/Creatinine Ratio 24.4 H (10-20) POC Glucose 112 H (70-99) mg/dl Magnesium 1.4 L (1.7-2.4) mg/dl Alkaline Phosphatase 171 H (34-104) U/L Troponin I High Sens 38.6 H (0-14) pg/ml Diagnostic Findings Head CT 12/09/22 18:02 CT OF THE HEAD WITHOUT CONTRAST CLINICAL HISTORY: neuro deficit, acute stroke suspected COMPARISON STUDY: Head CT August 31, 2019. TECHNIQUE: Helical axial images of the head were obtained without IV contrast. Automated exposure control was utilized for the study. A dose lowering technique was utilized adhering to the principles of ALARA. FINDINGS: No acute intracranial hemorrhage, midline shift or mass effect is present. White matter hypodensity suggests small vessel disease. The ventricular system is unremarkable. The basal cisterns are patent. No extra-axial collections are present. There are no findings to suggest acute dural sinus thrombosis or acute territorial infarct. No significant calvarial abnormalities are present. Visualized portions of the sinuses and mastoid air cells are clear. IMPRESSION: No acute intracranial findings. ACT 112: Negative or not required by law. Electronically signed by: Danish Sanchez M.D. 12/09/2022 6:37 PM Head CTA 12/09/22 18:02 CTA ANGIOGRAPHY OF THE HEAD CLINICAL HISTORY: neuro deficit, acute stroke suspected COMPARISON STUDY: Head CT August 31, 2019. TECHNIQUE: Helical axial images of the head were obtained following uneventful intravenous administration of 106 cc of Optiray. Sagittal and coronal reconstructions were viewed as well as maximal intensity projections on an independent 3-D workstation. Automated exposure control was utilized for the study. A dose lowering technique was utilized adhering to the principles of ALARA. FINDINGS: There is age indeterminate occlusion of the left internal carotid artery with reconstitution at the level of the supraclinoid ICA. Several sylvian branches of the left MCA appear somewhat attenuated. The right M1, M2, A1 and A2 segments are patent. The intracranial portions of the bilateral vertebral arteries are patent. Posterior cerebral artery patent. There is no intracranial aneurysm. Please note that the head CT will be reported separately. IMPRESSION: 1. Age indeterminate occlusion of the left internal carotid artery with reconstitution at the level of the supraclinoid ICA. Several sylvian branches of the left middle cerebral artery appears somewhat attenuated. 2. No intracranial aneurysm. ACT 112: Negative or not required by law. Electronically signed by: Danish Sanchez M.D. 12/09/2022 6:49 PM Neck CTA 12/09/22 18:02 CT ANGIOGRAPHY OF THE NECK WITH CONTRAST CLINICAL HISTORY: neuro deficit, acute stroke suspected COMPARISON STUDY: CTA of the neck May 31, 2015. Technique: CT angiography of the carotid and vertebral arteries was obtained using Optiray and 3D reconstruction on an independent workstation. NASCET criteria was utilized. Automated exposure control was utilized for the study. A dose lowering technique was utilized adhering to the principles of ALARA. CT DOSE: 1072.27 mGy.cm Findings: No significant abnormalities are identified within visualized portions of the lung apices. A left subclavian pacer is incidentally noted. There is no cervical lymphadenopathy. No acute cervical spine fracture is present. There is extensive calcified plaque within visualized portions of the aortic arch. There is faint contrast within the proximal left common carotid artery. No opacification of the mid to distal left common carotid artery. There is no contrast within the cervical left internal carotid artery consistent with vessel occlusion. This is age indeterminate but new since CTA of May 31, 2015. There is reconstitution at the level of the supraclinoid left ICA, as shown on CTA of the head. There is occlusion of the brachiocephalic trunk which is unchanged since CT of May 31, 2015. There is reconstitution at the level of the origins of the right common carotid and subclavian arteries. There is mild plaque within the right carotid bifurcation without stenosis. The cervical right internal carotid artery is patent. Both vertebral arteries are large and patent. There is no dissection within the neck. There is no aneurysm within the neck. IMPRESSION: 1. 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 This vessel occlusion is age indeterminate but new since CTA of May 31, 2015. 2. Chronic occlusion of the brachiocephalic trunk with reconstitution at the level of the origins of the right common carotid and subclavian arteries, unchanged since CTA of May 31, 2015. Patent right common carotid and cervical internal carotid arteries. 3. Large, patent bilateral vertebral arteries. 4. Extensive calcified plaque within the aortic arch. ACT 112: Negative or not required by law. Electronically signed by: Danish Sanchez M.D. 12/09/2022 6:45 PM Chest X-Ray 12/09/22 18:41 XR chest 1V portable CLINICAL HISTORY: stroke COMPARISON STUDY: Chest radiograph December 02, 2022. Chest CT December 04, 2022. FINDINGS: Radiodensity projects over the left upper arm. Left subclavian biventricular pacer/AICD is in place. Cardiomegaly is unchanged. Interstitial thickening is unchanged. This is likely chronic. There is no pneumothorax or pleural effusion. There is no consolidation to suggest pneumonia. The appearance of the chest is unchanged. IMPRESSION: 1. Radiodense material projecting over the left upper arm, partially imaged on this examination. This represents extravasated IV contrast from recent CTA. Continued monitoring of the infiltrate site is recommended. This finding was discussed with Dr. Araujo at time of dictation. 2. Cardiomegaly. No change in interstitial thickening, likely chronic. ACT 112: Negative or not required by law. Electronically signed by: Danish Sanchez M.D. 12/09/2022 7:[address] 12/09/22 19:47 CT OF THE HEAD WITHOUT CONTRAST CLINICAL HISTORY: worsening stroke symptoms post TNK COMPARISON STUDY: Head CT and CTA of the head performed earlier today. CT DOSE: 614.27 mGy.cm TECHNIQUE: Helical axial images of the head were obtained without IV contrast. Automated exposure control was utilized for the study. A dose lowering technique was utilized adhering to the principles of ALARA. FINDINGS: The sensitivity for detection of acute hemorrhage is diminished given intravascular contrast however no acute hemorrhage is identified on this exam. Ventricular system is stable. Basal cisterns are patent. There are no extra axial collections. White matter hypodensity suggests small vessel disease. There are no CT findings to suggest acute dural sinus thrombosis or acute territorial infarct. No significant calvarial abnormalities are identified. IMPRESSION: No acute intracranial findings. Sensitivity for detection of acute hemorrhage diminished given intravascular contrast but no hemorrhage identified. ACT 112: Negative or not required by law. Electronically signed by: Danish Sanchez M.D. 12/09/2022 8:05 PM ECG Additional Comments: AV dual-paced rhythm Biventricular pacemaker detected Abnormal ECG When compared with ECG of 04-DEC-2022 15:36, Vent. rate has decreased BY 76 BPM Code Status & VTE Plan Code Status Coditional code; No CPR or defibrillation. Would want a trial of intubation if needed for respiratory arrest Critical Care Time Critical Care Time: Yes Total Critical Care Time: 45 Critical care time including discussion with tertiary care provider, arranging transfer, repeat imaging and review of such imaging, etc. Supervising Physician Co-Signing Physician Notes I personally saw and examined the patient. I verified all laboy points and agree with SHAAN Cowan with the following exceptions and/or additions: Subjective: 82-year-old female past medical history significant for HFrEF s/p biventricular pacemaker, atrial fibrillation, LBBB, hypothyroidism, CAD, hypertension presented to the ER for acute onset of left eye loss of vision at 4 3 to 8 PM on 12/09/2022. Patient was a stroke alert, case discussed with telestroke neurology Dr. Connolly, after discussion with patient/family/ER provider decision was made for TNKase. Patient also started to note while in the ER some right arm/leg numbness/tingling without motor deficit. Of note, patient was discharged from [facility] 3 days ago for heart failure exacerbation and A-fib with RVR in the setting of low magnesium, palliative care was involved due to progressive nature of illness but at that time patient was interested in continued therapies. At that time due to her complex history anticoagulation was deferred to outpatient provider. Unfortunately, patient has not been able to have an appointment with cardiology prior to this new admission. Unable to gain meaningful history from patient. Lab work including CBC and BMP notable only for a sodium of 131, creatinine 1.23, magnesium 1.4, troponin 38.6 COVID-[address] head without acute intracranial findings. CTA head/neck with left common carotid and cervical internal carotid artery occlusion with reconstitution, age- indeterminate. Also noted to have chronic occlusion of the brachiocephalic trunk with reconstitution at the right common carotid and subclavian arteries. Physical exam: Vitals reviewed Gen: Alert and oriented, NAD HEENT: anicteric sclerae, EOMI CV: RRR no murmurs Pulm: CTAB no wheezes Abd: +BS soft NT ND no masses Ext: no edema, 2+ DP pulses Skin: no rashes, warm/dry Neuro: Aphasive slurred speech, right arm and right leg loss of motor function, left arm and leg strength/sensation intact Assessment and Plan: Concern for CVA s/p TNKase: Noted on my exam to have worsening of mental status, worsening right sided deficits, slurred speech. Case discussed further at 9:30pm with Dr. Connolly with [facility] Telestroke Neurology. Received TNKase at 7:06PM, worsening deficits soon after that so CT Head repeated with evidence per Dr. Connolly of improved carotid flow, no clear appearance of M1/M2 further propagation at this time. Given worsening of deficits, and possibility of propagation of the clot, ultimately for transfer to [facility] this evening. Please see discharge note. Admitted to ICU until that time. Does have a very recent history of an A-fib episode while admitted earlier this week in the setting of hypomagnesemia. On review of outpatient records from [facility] dated 12/07, outpatient cardiology office did review pacer data from dates of 12/04 to 12/07 without evidence of atrial fibrillation on pacer interrogation. Patient was continued on amiodarone but not placed on anticoagulation due to no further evidence of A-fib. Will need further goals of care discussions given now not only element of difficult to manage HFrEF, but also now worsening neurologic deficits and AFib elements as well. AFib: Recent history of, on amiodarone, continue. No DOAC at this time given TNKase, follows with Dr. Rivera. CAD: History of, without evidence of ACS. EKG without new ST or T wave changes. Troponin minimally elevated to 30s. HFrEF: Echo 12/03/22 with EF 20-25%. Hold Lasix at this time. Continue metoprolol and Entresto home dosing. No evidence of volume overload. Hypomagnesemia: received 2g Mag Sulfate in ER, continue to monitor Mag and replete as necessary. PG Care Time/CCT Total # of Minutes Spent Total Time Spent with Patient: Total time spent is greater than 50% in coordination of care (as documented) at patient's floor/unit and/or counseling patient: Critical Care Time: Yes Total Critical Care Time: 45 [place] [address] INT INP/OBS CARE 3/75MIN Patient Type New Medical Decision Making High Complexity Diagnoses Stroke I63.9 Hypomagnesemia E83.42 Hyponatremia E87.1 HFrEF (heart failure with reduced ejection fraction) I50.20 Elevated troponin I level R77.8 Hypothyroid E03.9 HTN (hypertension) I10 Hypertension type: essential hypertension CAD (coronary artery disease) I25.10 Associated angina: without angina Coronary Disease-Associated Artery/Lesion type: [place] artery [place] vs. transplanted heart: [place] heart COPD (chronic obstructive pulmonary disease) J44.9 Additional Codes Critical Care Time - Critical Care Time: Yes ([id number]) (7) HTN (hypertension) Hypertension type: essential hypertension Qualified Code(s): I10 - Essential (primary) hypertension (8) CAD (coronary artery disease) Associated angina: without angina Coronary Disease-Associated Artery/Lesion type: [place] artery [place] vs. transplanted heart: [place] heart Qualified Code(s): I25.10 - Atherosclerotic heart disease of [place] coronary artery without angina pectoris
[2022-12-09] MEDS ORDERED: SODIUM CHLORIDE 0.9% 500 ML IV ONE (21:36)
--- NOTE | 2022-12-09 22:00 | Discharge Summary ---
Discharge Summary Date of Service December 09, 2022 Admission HPI Per Admitting Provider Kp is an 82 yo F with PMHx of CAD s/p angioplasty and stent (2018), HFrEF with EF 30% (2021) s/p biventricular pacemaker, high grade subclavian and L internal carotid stenosis, dyspnea on exertion, hypothyroid, and HTN who presented to the [facility] ED on 12/09/22 due to sudden vision loss in the left eye at approximately 4:30 pm today. In the ED she was found to be afebrile, hemodynamically stable, and stable on RA. A stroke alert was called after ED evaluation. CT of the head was negative for acute findings. CTA of the head/neck was read as "1. Age indeterminate occlusion of the left internal carotid artery with reconstitution at the level of the supraclinoid ICA. Several sylvian branches of the left middle cerebral artery appears somewhat attenuated. 2. No intracranial aneurysm.". Chest xray was read as "1. Radiodense material projecting over the left upper arm, partially imaged on this examination. This represents extravasated IV contrast from recent CTA. Continued monitoring of the infiltrate site is recommended. This finding was discussed with Dr. Araujo at time of dictation. 2. Cardiomegaly. No change in interstitial thickening, likely chronic.". [facility] evaluated the patient and recommended TNK administration which was given at approximately 1906. Per the ED staff, the patient had some right eye paresthesias S/P TNK administration and a repeat head CT was obtained, it was negative for acute hemorrhage. CBC was WNL, Cr is stable at 1.23, sodium noted to be 131, mag at 1.4, initial high sen trop of 38.6, and she was found to be covid 19 negative. Prior to admission the patient was ordered 2 bag IV mag/sulfate. The patient was recently admitted to [facility] from 12/02-12/06 due to acute hypoxic respiratory failure thought to be due to CHF exacerbation. She was diuresed with IV lasix and was noted to be Euvolemic at the time of discharge. Her admission was complicated due to afib with RVR on 12/04. Cardiology was consulted and thoug ht her aifb RVR was due to her low mag levels and acute CHF exacerbation. The inpatient cardiology team suggested starting amiodarone and to consider starting anticoagulation with Eliqus. Per their note on 12/05, the inpatient Cardiology team deferred the decision to stat antiarrhythmics/anticoagulation to the outpatient Cardiology team. Per the DC summary on it was determined that the patient should continue amiodarone but hold anticoagulation at that time. Per review of outpatient notes from [facility], the patient's pacemaker was interrogated. She did not have further episodes of afib from 12/04 until discharge, which is why they elected to hold anticoagulation at that time. At the time of the exam the patient was sitting in bed in no acute distress. She states she was in her normal state of health this am. She was working on the computer this afternoon when she started to noticed blurry vision. She covered both eyes independently and noticed that she had complete loss of vision in her left eye, so she called EMS. At the time of my exam she states that her vision is blurry in the left eye but is improving compared to arrival. She has no other complaints at this time. We discussed code status, at this time she wishes to be a conditional code with only a trial of intubation in the case of respiratory arrest. Please refer to Dr. Leal's attestation for any changes to the treatment plan Admission Exam Per Admitting Provider General:In no acute distress, stated age, malnourished, chronically ill- appearing HEENT:Normocephalic, atraumatic, no scleral icterus, pupils around round, symmetrical, and reactive to light, moist mucus membranes, trachea midline, no thyromegaly Chest/Pulm:No respiratory distress, symmetrical chest expansion, expiratory wheezing noted throughout Cardiac:RRR, no murmurs noted Abdomen:Negative for ascites and bruising, normoactive bowel sounds, soft, non-tender to palpation throughout Musculoskeletal:Symmetrical and without signs of acute trauma, upper and lower extremities with full ROM, no atrophy, spasticity, or flaccidity Extremities:Radial, dorsalis pedis, and posterior tibial pulses are intact and symmetrical, no edema noted in the BL LE's Skin:Warm, dry, no rashes , lesions, or scars noted Neuro:Alert and oriented to person, place, month, year, and president, CN II-XII tested, patient currently with blurry vision in the left eye but able to differentiate number of fingers I am holding up, otherwise CN's are intact, Cerebellar testing WNL, negative pronator drift, no tremors noted Psych:No acute distress, calm and cooperative during the exam Principal Dx & Hospital Course #1 = Principal Diagnosis (1) Stroke: With worsening of stroke deficits over about 60 minutes from only L eye vision loss on arrival to ER, to development of expressive aphasia, as well as R arm/leg motor deficits in the setting of recent receipt of TNKase; concern for propagation of clot. Case discussed with Dr. Connolly, for urgent transport to [facility] for possible clot evacuation. called to discuss, he agrees to transfer. See H+P for further admission information. (2) Hypomagnesemia: (3) HFrEF (heart failure with reduced ejection fraction): (4) Elevated troponin I level: (5) Hypothyroid: (6) HTN (hypertension): (7) CAD (coronary artery disease): Discharge Exam Constitutional well developed, thin Respiratory normal respiratory effort, lungs clear to auscultation Cardiovascular RRR, no murmur, no edema Neurologic expressive aphasia, unable to repeat sentences, follow commands. Garbled speech. Unable to move right arm/leg at time of my exam. Protecting airway. Updated Medication List Medication Instructions Recorded Confirmed Type levothyroxine 25 mcg tablet 25 mcg PO Q OTHER DAY 07/17/19 12/09/22 History levothyroxine 50 mcg tablet 50 mcg PO Q OTHER DAY 07/17/19 12/09/22 History cyanocobalamin (vitamin B-12) 1,000 mcg PO DAILY #30 caps 11/10/19 12/09/22 Rx 1,000 mcg capsule ipratropium 20 mcg-albuterol 100 1 puffs inhalation Q6H PRN cough, 11/10/19 12/09/22 Rx mcg/actuation mist for inhalation wheeze, shortness of breath #4 (Combivent Respimat) grams fluticasone 250 mcg-salmeterol 50 1 inh inhalation BID 02/26/20 12/09/22 History mcg/dose blistr powdr for inhalation (Wixela Inhub) metoprolol succinate 25 mg 25 mg PO QAM #30 tabs 03/01/20 12/09/22 Rx tablet,extended release 24 hr (Toprol XL) atorvastatin 80 mg tablet 80 mg PO QAM 12/02/22 12/09/22 History cholecalciferol (vitamin D3) 25 25 mcg PO DAILY 12/02/22 12/09/22 History mcg (1,000 unit) tablet (Vitamin D3) cyclobenzaprine 10 mg tablet 10 mg PO BID PRN Muscle Spasm 12/02/22 12/09/22 History ferrous sulfate 325 mg (65 mg 325 mg PO DAILY 12/02/22 12/09/22 History iron) tablet pantoprazole 40 mg tablet,delayed 40 mg PO DAILY 12/02/22 12/09/22 History release sacubitril 49 mg-valsartan 51 mg 1 tab PO BID 12/02/22 12/09/22 History tablet (Entresto) tiotropium bromide 18 mcg capsule 1 cap inhalation DAILY 12/02/22 12/09/22 History with inhalation device (Spiriva with HandiHaler) amiodarone 200 mg tablet 200 mg PO BIDM 30 days #60 tabs 12/06/22 12/09/22 Rx furosemide 20 mg tablet 20 mg PO QAM 30 days #30 tabs 12/06/22 12/09/22 Rx Hospital Stay Data Consultations 12/09/22 21:14 Consult Vascular Surgery Routine Diagnostic Imagining Performed 12/09/22 18:02 CT angio head w con Stat CT angio neck with con Stat CT head/brain wo con Stat 12/09/22 19:47 CT head/brain wo con Stat 12/09/22 21:18 MRI Brain [MR brain wo con] Routine 12/09/22 21:36 CT head/brain wo con Stat CTA head w con [CT angio head w con] Stat CTA neck with con [CT angio neck with con] Stat Discharge Instructions Given to Patient (Per Discharging Provider) Presented to the ER for L vision loss. Stroke alert called, received TNKase with unfortunately worsening of neurologic deficits, now with R arm and L weakness and slurred speech/expressive aphasia. For transfer to [facility] for possible clot evacuation, case discussed with Dr. Connolly with [facility] Neurology. Total Time Total Time Spent Total Time Spent (In Minutes): See billing codes for admission, patient quickly after admission determined to need transfer and accepted by [facility] Neurologist Dr. Connolly. Admit/Discharge same day Coding Level of Care Code INP/OBS EV SAME DAY LV 3,85MIN Diagnoses Stroke I63.9 Hypomagnesemia E83.42 HFrEF (heart failure with reduced ejection fraction) I50.20 Elevated troponin I level R77.8 Hypothyroid E03.9 HTN (hypertension) I10 Hypertension type: essential hypertension CAD (coronary artery disease) I25.10 Associated angina: without angina Coronary Disease-Associated Artery/Lesion type: agdaagux artery [place] vs. transplanted heart: agdaagux heart
--- NOTE | 2022-12-09 22:43 | CT Scan Report ---
Exam(s): CT HEAD Without Contrast EXAM: CT Head Without Intravenous Contrast CLINICAL HISTORY: Reason for exam: worsening neuro deficits. TECHNIQUE: Axial computed tomography images of the head/brain without intravenous contrast. Automated exposure control was utilized for the study. A dose lowering technique was utilized adhering to the principles of ALARA. COMPARISON: No relevant prior studies available. FINDINGS: No acute intracranial hemorrhage. No midline shift or mass effect. The territorial bautista-white matter differentiation is maintained throughout. Age-related cerebral volume loss. Periventricular and subcortical white matter hypoattenuation, consistent with chronic microangiopathy. The visualized orbits appear grossly unremarkable. The calvarium is intact. The visualized paranasal sinuses and mastoid air cells are grossly clear. IMPRESSION: No acute intracranial hemorrhage, midline shift, or mass effect. Electronically signed by: Sotero Kennedy MD 12/09/22 22:43 PM
--- NOTE | 2022-12-10 01:40 | CT Scan Report ---
Exam(s): CTA HEAD With Contrast IV Amt: 111ml EXAM: CT Head With Intravenous Contrast CLINICAL HISTORY: Reason for exam: worsening neuro deficits. TECHNIQUE: Axial computed tomographic images of the head with intravenous contrast. CTDI is 32.17 mGy and DLP is 16.09 mGy-cm. Automated exposure control was utilized for the study. A dose lowering technique was utilized adhering to the principles of ALARA. CONTRAST: Patient received 111ml of IV contrast COMPARISON: No relevant prior studies available. FINDINGS: Right internal carotid artery: There is significantly diminished enhancement within the right ICA. Intracranial segment is patent with no significant stenosis. No aneurysm. Right anterior cerebral artery: Unremarkable. No occlusion or significant stenosis. No aneurysm. Right middle cerebral artery: Unremarkable. No occlusion or significant stenosis. No aneurysm. Right posterior cerebral artery: Unremarkable. No occlusion or significant stenosis. No aneurysm. Right vertebral artery: Unremarkable as visualized. Left internal carotid artery: No acute findings. Intracranial segment is patent with no significant stenosis. No aneurysm. Left anterior cerebral artery: Unremarkable. No occlusion or significant stenosis. No aneurysm. Left middle cerebral artery: Unremarkable. No occlusion or significant stenosis. No aneurysm. Left posterior cerebral artery: Unremarkable. No occlusion or significant stenosis. No aneurysm. Left vertebral artery: Unremarkable as visualized. Basilar artery: Unremarkable. No occlusion or significant stenosis. No aneurysm. IMPRESSION: Diminished enhancement within the right ICA concerning for a high-grade proximal stenosis. Electronically signed by: Nanda Aguiar MD 12/10/22 01:39 AM
--- NOTE | 2022-12-10 01:46 | CT Scan Report ---
Exam(s): CTA NECK With Contrast IV Amt: 111ml EXAM: CT Neck With Intravenous Contrast CLINICAL HISTORY: Reason for exam: worsening neuro deficits. TECHNIQUE: Routine carotid CT protocol was performed with intravenous contrast. NASCET criteria using the distal ICAs for comparison were used for evaluation of stenoses. CTDI is 11.14 mGy and DLP is 422.71 mGy-cm. Automated exposure control was utilized for the study. A dose lowering technique was utilized adhering to the principles of ALARA. CONTRAST: Patient received 111ml of IV contrast COMPARISON: None. FINDINGS: VASCULATURE: Right common carotid artery: There is a critical stenosis of the right brachiocephalic artery at the origin with diminished enhancement of the common carotid artery. Right internal carotid artery: Diminished enhancement of the right ICA.. Extracranial segment is patent with no occlusion or significant stenosis. No dissection. Right external carotid artery: Unremarkable. No occlusion. Right vertebral artery: Unremarkable. No occlusion or significant stenosis. No dissection. Left common carotid artery: There is a 70% stenosis of the distal left common carotid artery with low attenuation filling defect concerning for thrombus. No dissection. Left internal carotid artery: There is a 90% stenosis of the proximal left ICA.. No dissection. Left external carotid artery: Unremarkable. No occlusion. Left vertebral artery: Unremarkable. No occlusion or significant stenosis. No dissection. NECK: Bones/joints: Unremarkable. Soft tissues: Unremarkable. Lung apices: Clear. CAROTID STENOSIS REFERENCE USING NASCET CRITERIA: % ICA stenosis = (1 - narrowest ICA diameter/diameter of distal cervical ICA) x 100. Mild - <50% stenosis. Moderate - 50-69% stenosis. Severe - 70-94% stenosis. Near occlusion - 95-99% stenosis. Occluded - 100% stenosis. IMPRESSION: There is a critical stenosis of the proximal right brachiocephalic artery origin with significantly diminished enhancement of the right common carotid and ICA. There is a 70% stenosis of the distal left common carotid artery with low attenuation filling defect concerning for acute thrombus. There is a 90% stenosis of the proximal left ICA secondary to heavily calcified atherosclerotic disease. Electronically signed by: Nanda Aguiar MD 12/10/22 01:45 AM
--- NOTE | 2022-12-10 23:35 | Electrocardiogram Report ---
Test Reason : Blood Pressure : / mmHG Vent. Rate : 061 BPM Atrial Rate : 061 BPM P-R Int : 118 ms QRS Dur : 144 ms QT Int : 554 ms P-R-T Axes : 103 -67 105 degrees QTc Int : 557 ms AV dual-paced rhythm Biventricular pacemaker detected Abnormal ECG When compared with ECG of 04-DEC-2022 15:36, Vent. rate has decreased BY 76 BPM AV pacing is now present Confirmed by Daniel Levin ([id number]) on 12/10/2022 11:35:37 PM Referred By: REFERRED SELF Confirmed By:Daniel Levin
== END 2022-12-09 23:15 | disposition short-term general hospital (02) | DRG 65 ==
LOC: ED 18:10 → 1E 20:38

== ENCOUNTER 2023-02-06 05:39 | Inpatient (IN) ==
--- NOTE | 2023-01-30 09:51 | Anesthesiology Consultation ---
Date of Service January 30, 2023 Assessment & Plan (1) Encounter for pre-operative examination: Plan - awaiting most recent pacemaker check and cardiology pre-op notation-already determined by [facility] cardiology per Soni with Dr. Cameron's office. - Case discussed in detail with Dr. Carty. He advised consideration for general anesthesia over MAC, that cardiac device rep be present, and obtaining clarification/confirmation from Dr. Cameron's office on planned positioning for surgery given previous cancellation. This was all discussed in detail with Soni at surgeon's office and she will relay this to Dr. Cameron and notify our office of determination. He advised once cardiology pre-op determination is obtained, patient is considered acceptable candidate at [facility] [place]. - acute stroke 12/09/22, transferred to [facility] for LVO and thrombectomy s/p TNK administration-cancelled as patient had improved clinically-planned awake carotid endarterectomy-cancelled d/t patient's inability to lay flat. - [employer] rep needed per Dr. Carty. Paige with OR made aware. - check BSG and BMP STAT am DOS. - vascular surgery 01/21/23: "...found to have a left internal carotid artery with severe stenosis. Endarterectomy was planned at that time. When taken to the operating [sic] she cannot lay flat so the procedure was abandoned...recommend a TCAR procedure due to her high risk...can be done under MAC as a primary anesthetic mode in general as a backup...understood the risks options benefits and agreed with this procedure...will have her seen by Dr. Carrington preoperatively for reevaluation and clearance..." - cardiology 12/24/22 [place]: "...here today for second opinion regarding management of her CHF, AF and PAD in the setting of recent CVA. Today symptomatically close to recent baseline despite hospitalizations. Endorses stable NYHA class II-III symptom. No recurrent palpitations. Clinically in sinus rhythm and appears euvolemic to dry on exam. Weight down 7 pounds from earlier in the month and BNP down from >4700 to 1000. Repeat labs consistent with prerenal azotemia. Plan to hold maintenance p.o. Lasix daily for next 3 days. Resume home daily weights. Restart Lasix 20 mg as needed for weight gain/symptoms. Target weight 107...continue current HF regimen with Toprol-XL, Entresto. With TAZ, borderline potassium hold off on MRA/SGLT2...In regards to her recent CVA and symptomatic severe left CCA/ICA disease recommended proceeding with further carotid intervention evaluation...For atrial fibrillation, although prior AF burden reportedly modest on pacer, with recent stroke and [id number] of 8 favor starting anticoagulation with Eliquis 2.5mg BID. Can stop aspirin, continue clopidogrel. Long-term will consider discontinuing clopidogrel post possible CEA..." 2 week f/u 01/08/23: "...remains stable from cardiac standpoint. Endorses stable NYHA class II-III symptom. No recurrent palpitations. Clinically in sinus rhythm and will reduce amiodarone to 200 mg once daily. Weight up a few pounds since last visit and mild lower extremity edema but overall appears euvolemic. Will continue Lasix 20 mg as needed with goal weight of 107 pounds. Repeat labs show renal function back to baseline, electrolytes stable. Low sodium diet, daily weights reinforced..." - COVID screening: Per emergency operator on 01/25/2023: Travel screen negative, no known COVID-19 positive contacts or current COVID-19 related symptoms in past 2 weeks. To surgeon's discretion if preop COVID testing is needed. Chart Review Chart Review: Pending: Refer to Additional Notes / Consult section and Patient NOT seen in Pre Admission Testing History Surgery Operation Date: 02/06/23 12:05 Proposed Procedures p Left Transcarotid Revascularization - Jun Cameron MD Height/Weight Height: 5 ft 4 in Weight: 49.895 kg Allergies Allergy/AdvReac Type Severity Reaction Status Date / Time azithromycin [From Zithromax] Allergy Severe Anaphylaxis Verified 01/25/23 14:21 Medications Home Medications Medication Instructions Recorded Confirmed Last Taken levothyroxine 25 mcg tablet 25 mcg PO Q OTHER DAY 07/17/19 01/25/23 Unknown ipratropium 20 mcg-albuterol 100 1 puffs inhalation Q6H PRN cough, 11/10/19 01/25/23 02/26/20 mcg/actuation mist for inhalation wheeze, shortness of breath #4 (Combivent Respimat) grams fluticasone 250 mcg-salmeterol 50 1 inh inhalation BID 02/26/20 01/25/23 02/26/20 mcg/dose blistr powdr for inhalation (Wixela Inhub) metoprolol succinate 25 mg 25 mg PO QAM #30 tabs 03/01/20 01/25/23 Unknown tablet,extended release 24 hr (Toprol XL) atorvastatin 80 mg tablet 80 mg PO QAM 12/02/22 01/25/23 Unknown cholecalciferol (vitamin D3) 25 25 mcg PO QAM 12/02/22 01/25/23 Unknown mcg (1,000 unit) tablet (Vitamin D3) ferrous sulfate 325 mg (65 mg 325 mg PO QAM 12/02/22 01/25/23 Unknown iron) tablet sacubitril 49 mg-valsartan 51 mg 1 tab PO BID 12/02/22 01/25/23 Unknown tablet (Entresto) tiotropium bromide 18 mcg capsule 1 cap inhalation QAM 12/02/22 01/25/23 Unknown with inhalation device (Spiriva with HandiHaler) folic acid 1 mg tablet 2 mg PO QAM 12/24/22 01/25/23 Unknown apixaban 2.5 mg tablet (Eliquis) 2.5 mg PO BID #60 tabs 12/25/22 01/25/23 Unknown amiodarone 200 mg tablet 200 mg PO QAM 01/25/23 01/25/23 Unknown aspirin 81 mg capsule 81 mg PO QAM 01/25/23 01/25/23 Unknown clopidogrel 75 mg tablet (Plavix) 75 mg PO QAM 01/25/23 01/25/23 Unknown cyanocobalamin (vitamin B-12) 1,000 mcg PO QAM 01/25/23 01/25/23 Unknown 1,000 mcg capsule empagliflozin 10 mg tablet 10 mg PO QAM 01/25/23 01/25/23 Unknown (Jardiance) furosemide 20 mg tablet 20 mg PO QAM PRN Edema 01/25/23 01/25/23 Unknown lansoprazole 15 mg delayed 15 mg PO QAM 01/25/23 01/25/23 Unknown release,disintegrating tablet levothyroxine 50 mcg tablet 50 mcg PO Q2D 01/25/23 01/25/23 Unknown Past Medical History Medical History (Updated 01/30/23 @ 09:59 by Jessika M. Onink, PA-C) Biventricular cardiac pacemaker in situ follows with Dr. Carrington. last checked "not long ago" ~10/[address] Rivera[address] office. (pt recently switched providers) CAD (coronary artery disease) s/p NARCISO to LAD and Cx 2018 Carotid stenosis Chronic kidney disease stage 3 -- follows with Dr Pantoja COPD (chronic obstructive pulmonary disease) severe per [place] records Diabetes mellitus, type 2 NIDDM ANDRADE (dyspnea on exertion) Dysphagia HFrEF (heart failure with reduced ejection fraction) EF 25-30% 12/2022 echo History of placement of stent in LAD coronary artery (2019) 2019 at [facility] HTN (hypertension) Hyperlipidemia Hypothyroidism Left bundle branch block Mitral regurgitation Paroxysmal atrial fibrillation with RVR 12/2022 dx at [facility]. no cardioversion. Presence of stent in LAD coronary artery 2018 Presence of stent in left circumflex coronary artery (2018) 2018 at [facility] Pulmonary edema 12/2022 [facility] hospitalization STEMI (ST elevation myocardial infarction) 2019 Stroke left hemispheric (MCA territory ischemic) 12/09/22 received TNK, transferred to [facility] and thrombectomy cx d/t improvement in symptoms Subclavian artery stenosis Upper GI bleed pt denies Past Family History Family History Other Hypertension No family history of adverse response to anesthesia Past Surgical History Surgical History History of cardiac cath 2019 at [facility] History of colonoscopy History of heart artery stent total of 2 stents placed in 2019 S/P AAA repair 08/2015 at [facility] S/P placement of cardiac pacemaker 2018 at [facility] -- unsure of exact reason for pacemaker Social History Smoking Status: Current every day smoker tobacco type: cigarettes Smoking cigarettes per day: 10-20 a day Do You Dip or Chew Tobacco: No Hx Alcohol Use: Yes Alcohol type: wine alcohol intake frequency: 0-2 drinks per day Hx Substance Use: No substance use type: does not use Testing Laboratory Results 12/14/2022 WBC: 7.4 H/H: 12 PLATELETS: 246 SODIUM: 138 POTASSIUM: 4.3 CHLORIDE: 102 CO2: 25 BUN: not listed CREATININE: not listed eGFR: 24 GLUCOSE: 103 PT: 12 INR: 0.9 12/12/22 UA: yellow, 50+ RBC, few squamous epithelial cells, negative bacteria Electrocardiogram Date: 12/09/22 AV dual paced rhythm, rate 61 bpm Biventricular pacemaker detected Chest X-Ray Date: 12/09/22 *1view* 1. Radiodense material projecting over the left upper arm, partially imaged on this examination. This represents extravasated IV contrast from recent CTA. Continued monitoring of the infiltrate site is recommended. This finding was discussed with Dr. Araujo at time of dictation. 2. Cardiomegaly. No change in interstitial thickening, likely chronic. Echocardiogram Date: 12/10/22 EF 25-30% Diffuse hypokinesis Severely dilated LV Grade II diastolic dysfunction Moderately dilated LA Mild to moderate mitral valve regurgitation Mild tricuspid regurgitation PASP top normal at [address] head/brain 12/10/22 No acute intracranial hemorrhage Carotid doppler 12/10/22 Blunted, low velocity flow in the right subclavian artery, common and external carotid arteries, suggesting a severe stenosis/occlusion of the innominate artery. Brachial systolic pressure difference of 55 mmHg. Oscillating flow in the right ICA. No hemodynamically significant stenosis in the R ICA 70-79% stenosis in L ICA > 50% stenosis of the left external carotid artery Smooth surfaced fibrofatty plaque vs thrombus in the left distal common carotid artery Smooth surfaced, fibrofatty plaque in the right bulb and internal carotid artery Complex, calcified plaue in the left bulb and internal carotid artery Neck CTA 12/09/22 There is a critical stenosis of the proximal right brachiocephalic artery origin with significantly diminished enhancement of the right common carotid and ICA. There is a 70% stenosis of the distal left common carotid artery with low attenuation filling defect concerning for acute thrombus. There is a 90% stenosis of the proximal left ICA secondary to heavily calcified atherosclerotic disease. Chest CT 12/04/22 No focal infiltrate, pleural effusion, or pneumothorax. Dependent atelectasis/scarring.
[2023-02-06] MEDS ORDERED: CEFAZOLIN 2,000 MG/15 ML SYR IV SCH (06:00)
[2023-02-06] MEDS: LACTATED RINGER'S 1,000 ML IV SCH ×2 (06:00→15:38)
[2023-02-06 06:41] LABS: BUN Creatinine Ratio 17.6 (10-20); Creatinine Clr Calc Pharmacy 25.3 ml/min; Est GFR (African American) 36.8 ml/min; Est GFR (Non-African American) 31.8 ml/min; Potassium 4.3 mmol/L (3.5-5.1)
[2023-02-06] MEDS ORDERED: fentaNYL citrate PF 100 MCG/2 ML VIAL ONE (07:06)
[2023-02-06] MEDS ORDERED: GELATIN SPONGE SZ 100 ONE (07:09)
[2023-02-06] MEDS ORDERED: ceFAZolin 330 MG/ML 1 GM VIAL ONE (07:09)
[2023-02-06] MEDS ORDERED: BUPIVACAINE/EPINEPHRINE 0.5% MPF 1:200,000 30 ML VIAL ONE (07:09)
[2023-02-06] MEDS ORDERED: THROMBIN FOR SOLN 20000 UNIT KIT ONE (07:10)
[2023-02-06] MEDS ORDERED: HEPARIN SOD (PORCINE) 1000 UNIT/ML ONE (07:25)
[2023-02-06] MEDS ORDERED: LIDOCAINE 2% 2 ML VIAL/AMP(20MG/ML) INFIL ONE (07:25)
[2023-02-06] MEDS ORDERED: PROPOFOL IV EMULSION 10 MG/ML 20 ML VIAL IV ONE (07:25)
[2023-02-06] MEDS ORDERED: ROCURONIUM BROMIDE 10 MG/ML 5 ML VIAL IV ONE (07:25)
--- NOTE | 2023-02-06 07:53 | History & Physical Bridge Note ---
Date of Service February 06, 2023 History & Physical Bridge Note I have examined the patient, reviewed the History & Physical and in the interval since the performance of the History & Physical I have noted the following changes of clinical significance: no changes noted
--- NOTE | 2023-02-06 07:53 | History & Physical Report ---
Date of Service February 06, 2023 History of Present Illness Primary Care Provider: Courtney Naik MD Chief Complaint rm#7 here for f/u after stroke. States that she has no residual effects. Subjective I had the pleasure of seeing Kp today for evaluation of her left carotid stenosis. As you know she is an 82-year-old female who had a CVA involving the left hemisphere. She was transferred to [place]. She is found to have a left internal carotid artery with severe stenosis. Endarterectomy was planned at that time. When taken to the operating she cannot lay flat so the procedure was abandoned. He is here today to discuss other options. She has a history of COPD but not on home. She had an aortobifemoral bypass for abdominal aortic aneurysm in the past. She has CKD 3. She has had coronary artery stenting in the past. Her ejection fraction is 20 to 25% and does have a pacemaker in place. She also has a history of hypothyroidism and hypertension. Objective Vitals & Measurements HR: 74 (Monitored) BP: 122/78 SpO2: 98% Physical Exam On exam she is awake alert oriented x3. She is in no apparent distress. Her blood pressure is 122/78. Radials are +2 bilaterally. Her lungs were clear. Her heart had a regular rhythm. Abdominal exam is benign. Neurologic exam is intact motor and sensory function. Assessment/Plan Bilateral carotid artery stenosis At this point being that she did have a symptomatic left internal carotid artery lesion recommended a TCAR procedure due to her high risk. This can be done under MAC as a primary anesthetic mode in general as a backup. She understood the risks options benefits and agreed with this procedure. We will have her seen by Dr. Carrington preoperatively for reevaluation and clearance. Thank you very much for letting us participate in the care of this patient. Sincerely, Sondra Cameron MD Signature Line Electronic Signature on File Jun Cameron MD Author Signature Dt/Tm: 01/21/2023 03:37 PM Client Account Manager Kendrick Bhagat [facility] [place], [address] [place] [address] EJS Result Type: .Outpt Ltr Date of Service: January 21, 2023 15:31 EDT Authorization Status: Final Subject: Follow Up Visit Author or Import Date: MD Cameron Eugene J on January 21, 2023 15:36 EDT Verified By: MD Cameron Eugene J on January 21, 2023 15:37 EDT Encounter info: [id number], [place] [id number], Clinic, 01/21/2023 - 01/21/2023 Allergies Allergy/AdvReac Type Severity Reaction Status Date / Time azithromycin [From Zithromax] Allergy Severe Anaphylaxis Verified 02/06/23 06:02 Home Medications Medication Instructions Recorded Confirmed Type levothyroxine 25 mcg tablet 25 mcg PO Q OTHER DAY 07/17/19 02/06/23 History ipratropium 20 mcg-albuterol 100 1 puffs inhalation Q6H PRN cough, 11/10/19 02/06/23 Rx mcg/actuation mist for inhalation wheeze, shortness of breath #4 (Combivent Respimat) grams fluticasone 250 mcg-salmeterol 50 1 inh inhalation BID 02/26/20 02/06/23 History mcg/dose blistr powdr for inhalation (Wixela Inhub) metoprolol succinate 25 mg 25 mg PO QAM #30 tabs 03/01/20 02/06/23 Rx tablet,extended release 24 hr (Toprol XL) atorvastatin 80 mg tablet 80 mg PO QAM 12/02/22 02/06/23 History cholecalciferol (vitamin D3) 25 25 mcg PO QAM 12/02/22 02/06/23 History mcg (1,000 unit) tablet (Vitamin D3) ferrous sulfate 325 mg (65 mg 325 mg PO QAM 12/02/22 02/06/23 History iron) tablet sacubitril 49 mg-valsartan 51 mg 1 tab PO BID 12/02/22 02/06/23 History tablet (Entresto) tiotropium bromide 18 mcg capsule 1 cap inhalation QAM 12/02/22 02/06/23 History with inhalation device (Spiriva with HandiHaler) folic acid 1 mg tablet 2 mg PO QAM 12/24/22 02/06/23 History apixaban 2.5 mg tablet (Eliquis) 2.5 mg PO BID #60 tabs 12/25/22 02/06/23 Rx amiodarone 200 mg tablet 200 mg PO QAM 01/25/23 02/06/23 History aspirin 81 mg capsule 81 mg PO QAM 01/25/23 02/06/23 History clopidogrel 75 mg tablet (Plavix) 75 mg PO QAM 01/25/23 02/06/23 History cyanocobalamin (vitamin B-12) 1,000 mcg PO QAM 01/25/23 02/06/23 History 1,000 mcg capsule empagliflozin 10 mg tablet 10 mg PO QAM 01/25/23 02/06/23 History (Jardiance) furosemide 20 mg tablet 20 mg PO QAM PRN Edema 01/25/23 02/06/23 History lansoprazole 15 mg delayed 15 mg PO QAM 01/25/23 02/06/23 History release,disintegrating tablet levothyroxine 50 mcg tablet 50 mcg PO Q2D 01/25/23 02/06/23 History Past Med/Surg History Medical History Biventricular cardiac pacemaker in situ follows with Dr. Carrington. last checked "not long ago" ~10/[address] Rivera's office. (pt recently switched providers) CAD (coronary artery disease) s/p NARCISO to LAD and Cx 2018 Carotid stenosis Chronic kidney disease stage 3 -- follows with Dr Pantoja COPD (chronic obstructive pulmonary disease) severe per [place] records Diabetes mellitus, type 2 NIDDM ANDRADE (dyspnea on exertion) Dysphagia HFrEF (heart failure with reduced ejection fraction) EF 25-30% 12/2022 echo History of placement of stent in LAD coronary artery (2018) 2018 at [facility] HTN (hypertension) Hyperlipidemia Hypothyroidism Left bundle branch block Mitral regurgitation Paroxysmal atrial fibrillation with RVR 12/2022 dx at [facility]. no cardioversion. Presence of stent in LAD coronary artery 2019 Presence of stent in left circumflex coronary artery (2018) 2019 at [facility] Pulmonary edema 12/2022 [facility] hospitalization STEMI (ST elevation myocardial infarction) 2019 Stroke left hemispheric (MCA territory ischemic) 12/09/22 received TNK, transferred to [facility] and thrombectomy cx d/t improvement in symptoms Subclavian artery stenosis Upper GI bleed pt denies Surgical History History of cardiac cath 2019 at [facility] History of colonoscopy History of heart artery stent total of 2 stents placed in 2019 S/P AAA repair 08/2015 at [facility] S/P placement of cardiac pacemaker 2019 at [facility] -- unsure of exact reason for pacemaker Family History Other Hypertension No family history of adverse response to anesthesia Social History Smoking Status: Current every day smoker Tobacco Type: Cigarettes Cigarettes Per Day: 10-20 a day; Second Hand Exposure: Yes; Do You Dip or Chew Tobacco: No; Tobacco Cessation Education Requested by Patient: No Hx Alcohol Use: Yes Alcohol type: wine Hx Substance Use: No Preferred Language: Lao Communication Ability: Effective Senior Search Marketing Analyst Required: No Beliefs That Will Affect Care: None marital status: Current Living Situation: Spouse How many Children do You have: 2 Other Information That Helps Us Care for You: No Feels Safe at Home: Yes Safety Concerns: Feels Safe At This Time Assistive Devices: Denture - Upper and Glasses Review of Systems All systems reviewed & are unremarkable except as noted in HPI & below Results & Data Vital Signs (Past 12 Hours) Vital Signs Temp Pulse Resp BP BP Pulse Ox O2 Del Method 02/06/23 06:13 Room Air 02/06/23 06:13 36.4 C L 62 22 143/91 H 109/69 100 Room Air
[2023-02-06] MEDS ORDERED: ALBUMIN HUMAN 5% 12.5 GM/250 ML VIAL IV ONE (08:14)
[2023-02-06] MEDS ORDERED: SUGAMMADEX SODIUM 200 MG/2 ML VIAL IV ONE (08:55)
[2023-02-06] MEDS ORDERED: ETOMIDATE 2 MG/ML 20 ML VIAL IV ONE ×2 (08:55→09:29)
[2023-02-06] MEDS ORDERED: VISIPAQUE IV ONE (09:11)
[2023-02-06] MEDS ORDERED: VASOPRESSIN 20 UNIT/ML VIAL ONE (09:29)
[2023-02-06] MEDS ORDERED: NOREPINEPHRINE BITARTRATE 1 MG/ML 4 ML VIAL IV ONE (09:29)
[2023-02-06] MEDS ORDERED: PROTAMINE SULFATE 10 MG/ML 5 ML VIAL IV ONE (09:37)
[2023-02-06] MEDS ORDERED: ARISTA ABSORBABLE HEMOSTAT 3GM TOP ONE (09:43)
[2023-02-06] MEDS ORDERED: SURGICEL ABSORB HEMOSTAT 2IN X 14IN TOP ONE (10:00)
--- NOTE | 2023-02-06 10:15 | Procedure Note ---
Angiogram Post Procedure Fluoroscopy Time (minutes): 1.9 Radiation (mGy): 13 Contrast: 15 Post Operative Report Pre & Post Diagnosis Operation Date: 02/06/23 08:00 Pre-Op Diagnosis: symptomatic left internal carotid artery lesion Post-Op Diagnosis: symptomatic left internal carotid artery lesion I identified the patient and participated in the time-out.: Yes Procedure Operation Date: 02/06/23 08:00 Actual Procedures p Left Transcarotid Revascularization(Left),ultrasound of right common femoral vein - Jun Cameron MD Surgeon Jun Cameron MD Dance Director Oliver,PAC Estimated Blood Loss 20 Findings Consistent with Post-Op Diagnosis Specimens none Anesthesia Type General Complications none Disposition Accompanied Patient To Recovery: No Disposition: Recovery Room Indications Patient is an 82-year-old female who had a TIA with tPA a in December. She was found to have severe stenosis of her left internal carotid artery. An attempt at endarterectomy was undertaken however she cannot lay flat and it was discontinued after another facility. We recommended a left carotid TCAR. I have discussed the risks options and benefits of the procedure with the patient. The patient understands the risks options and benefits and agrees to the procedure. Description of Procedure The patient was taken to the operating room and placed in supine position. After general anesthesia was accomplished the groins and left side of the neck and chest were prepped and draped in a sterile manner. Timeout was performed and the patient was identified. A transverse incision was made just above the clavicle between the heads of the sternocleidomastoid. This is carried down to where the common carotid artery was identified. It was isolated. It was slung with umbilical tape. Next the U stitch was placed in the common carotid artery with a 5-0 Prolene suture. Patient was given 6000 heparin at that time. Ultrasound was then used to localize the right common femoral vein. The vein was patent and compressed easily. Under ultrasound guidance the right common femoral vein was punctured and the venous sheath was inserted. This was aspirated and flushed with heparinized saline. ACT at that time was 395. Using micropuncture technique the common carotid artery was punctured using a tunneling technique.. The micro sheath was inserted to 2.5 cm. Injection was then done showing the bifurcation. There was a significant lesion seen at the origin of the internal carotid artery on the right side. We then inserted the J-wire left and short of the lesion. The micro sheath was removed and the TCAR sheath was inserted. The footplate had to had been taken off the sheath and the puncture was on a tunnel infection. Once it was in place and held against the artery it was sutured to the chest wall and the incision edge. We then flushed the tubing appropriately. The venous return to was clamped onto the TCAR sheath. It was flushed through and then attached to the venous inflow sheath in the left groin. Sheath was checked for flow. The saline cleared nicely. The common carotid artery was then clamped. Flow reversal was instituted. We inserted a 6 x 35 balloon backloaded on the wire. The wire was passed through the lesion into the petrous portion of the internal carotid. The 6 balloon was then advanced to the lesion. Lesion was then predilated with a 6 mm balloon. Balloon was removed. We then inserted the 9 x 40 stent. This was deployed across the lesion without difficulty. The catheter was removed. The carotid was allowed to go 2 minutes with flow reversal. Completion angiogram was done at that time which showed a widely patent carotid stent. Due to his tightness of the lesion we did an another view in the AP position. Again the stent was widely patent with minimal residual narrowing. At that point the common carotid artery was unclamped. The venous return tubing was clamped and removed from the TCAR sheath. The blood was allowed to flow back into the venous system. Once this was completed the sheath was pulled from the groin and pressure was applied. The TCAR sheath was then removed and the 5-0 Prolene suture securely tied. Hemostasis was noted of the puncture site. Wound was irrigated with Anc ef solution. Adequate hemostasis was obtained of the wound. Once this was noted the wound was closed in usual fashion using a 3-0 Vicryl suture for the subcutaneous layer and a 4-0 subcuticular Vicryl suture for the skin edges. Dermabond was used for dressing.The patient left the operation room in satisfactory condition and tolerated the procedure well. All needle and sponge counts were correct at the end of the procedure. Leslie Matthew Pac assisted due to lack of resident availability and was necessary for positioning, draping, retraction, wound closure deep layers, subcutaneous tissue, and skin closure and was necessary for assisting with the case. I attest to the content of the Intraoperative Record and any orders documented therein. Any exceptions are noted below.
--- NOTE | 2023-02-06 10:53 | XRay Report ---
XR chest 1V portable HISTORY: 82 years-old Female chf acute shortness of breath COMPARISON: 12/09/2022 TECHNIQUE: AP view of the chest FINDINGS: Cardiac silhouette is enlarged. Left subclavian pacer/AICD. No pneumothorax. Small pleural effusions with mid to lower lung zone prominent airspace opacities. Pulmonary vascular congestion with intersti tial coarsening. Degenerative changes of the shoulders and spine. IMPRESSION: 1. Cardiomegaly with pulmonary edema. 2. Small pleural effusions with bibasilar predominant consolidation. ACT 112: Negative or not required by law. The above report was generated using voice recognition software. It may contain grammatical, syntax o r spelling errors. Electronically signed by: Martinez Farmer M.D. 02/06/2023 10:51 AM
[2023-02-06] MEDS ORDERED: FUROSEMIDE 40 MG/4 ML VIAL IV ONE (11:28)
--- NOTE | 2023-02-06 12:22 | Anesthesiology Progress Note ---
Date of Service February 06, 2023 Anesthesia Post Procedure Vital Signs Vital Signs: Temp Pulse Pulse Resp BP BP BP 02/06/23 11:50 60 20 136/71 142/66 H 02/06/23 11:40 60 16 136/71 140/66 02/06/23 12:10 60 20 132/69 141/65 H 02/06/23 12:00 36.8 C 60 20 127/81 142/66 H 02/06/23 11:30 60 20 145/77 H 135/69 02/06/23 11:20 60 18 147/78 H 151/72 H 02/06/23 11:10 60 16 147/81 H 142/69 H 02/06/23 11:00 60 12 153/77 H 150/82 H 02/06/23 10:50 60 20 155/85 H 144/78 H 02/06/23 10:40 60 20 156/85 H 149/82 H 02/06/23 10:35 36.0 C L 75 16 159/91 H 02/06/23 06:13 02/06/23 06:13 36.4 C L 62 22 143/91 H 109/69 Pulse Ox O2 Del Method O2 Flow Rate 02/06/23 11:50 100 Oxymask 2 02/06/23 11:40 100 Oxymask 2 02/06/23 12:10 100 Oxymask 2 02/06/23 12:00 100 Oxymask 2 02/06/23 11:30 100 Oxymask 2 02/06/23 11:20 100 Oxymask 4 02/06/23 11:10 100 Oxymask 4 02/06/23 11:00 100 Oxymask 4 02/06/23 10:50 100 Oxymask 6 02/06/23 10:40 100 Oxymask 9 02/06/23 10:35 100 Oxymask 9 02/06/23 06:13 Room Air 02/06/23 06:13 100 Room Air Transfer of Care Handoff Completed per policy Notes Mental Status: alert / awake / arousable Patient Amnestic to Procedure: Yes Nausea / Vomiting: adequately controlled Pain: adequately controlled Airway Patency, RR, SpO2: stable & adequate BP & HR: stable & adequate Hydration State: stable & adequate Anesthetic Complications: no major complications apparent and see Notes below (Pt w/ ICM and Hx/o CHF, now in CHF being treated w/ diuretics IV. Pt is at high risk of CHF. Pt to be transferred to ICU.)
[2023-02-06] MEDS ORDERED: LACTATED RINGER'S 1,000 ML IV SCH (12:41)
[2023-02-06] MEDS ORDERED: FUROSEMIDE 20 MG TAB PO PRN (12:41)
[2023-02-06] MEDS ORDERED: STAT IV Infusion **Titration per Protocol STA ×2 (12:41)
[2023-02-06] MEDS ORDERED: oxyCODONE/ACETAMINOPHEN 5mg/325mg TAB PO PRN (12:41)
[2023-02-06] MEDS ORDERED: NOREPINEPHRINE/D5W 4 MG/250 ML PLCT IV SCH (12:41)
[2023-02-06] MEDS ORDERED: ALBUTEROL HFA 8 GM INHALER INH PRN (12:49)
--- NOTE | 2023-02-06 12:55 | Critical Care Consultation ---
Date of Consultation February 06, 2023 Assessment & Plan (1) Stenosis of left internal carotid artery: (2) Stroke: (3) HFrEF (heart failure with reduced ejection fraction): (4) COPD (chronic obstructive pulmonary disease): Plan 82-year-old female with severe chronic comorbidities including COPD and systolic heart failure who presented for elective left carotid TCAR. She briefly required Levophed and she is currently stable. She does endorse a chronic cough that is occasionally productive. Continue Breo and Incruse Ellipta while inpatient. Otherwise hemodynamic parameters, antiplatelets and general medical care per vascular surgery team. ICU team will continue to monitor while she remains under ICU status. History of Present Illness Reason for Consultation: Post TCAR monitoring Attending Physician: Jun Cameron MD History of Present Illness 82-year-old female with a history of ischemic cardiomyopathy and left internal carotid artery severe stenosis who presented for an elective procedure today. She underwent a TCAR on the left. Postop she is doing well and denies any significant complaint. She has however required low doses of Levophed. She does have a chronic cough which is occasionally productive. She notes that she is on Spiriva. Allergies Allergy/AdvReac Type Severity Reaction Status Date / Time azithromycin [From Zithromax] Allergy Severe Anaphylaxis Verified 02/06/23 06:02 Home Medications Medication Instructions Recorded Confirmed Type levothyroxine 25 mcg tablet 25 mcg PO Q OTHER DAY 07/17/19 02/06/23 History ipratropium 20 mcg-albuterol 100 1 puffs inhalation Q6H PRN cough, 11/10/19 02/06/23 Rx mcg/actuation mist for inhalation wheeze, shortness of breath #4 (Combivent Respimat) grams fluticasone 250 mcg-salmeterol 50 1 inh inhalation BID 02/26/20 02/06/23 History mcg/dose blistr powdr for inhalation (Wixela Inhub) metoprolol succinate 25 mg 25 mg PO QAM #30 tabs 03/01/20 02/06/23 Rx tablet,extended release 24 hr (Toprol XL) atorvastatin 80 mg tablet 80 mg PO QAM 12/02/22 02/06/23 History cholecalciferol (vitamin D3) 25 25 mcg PO QAM 12/02/22 02/06/23 History mcg (1,000 unit) tablet (Vitamin D3) ferrous sulfate 325 mg (65 mg 325 mg PO QAM 12/02/22 02/06/23 History iron) tablet sacubitril 49 mg-valsartan 51 mg 1 tab PO BID 12/02/22 02/06/23 History tablet (Entresto) tiotropium bromide 18 mcg capsule 1 cap inhalation QAM 12/02/22 02/06/23 History with inhalation device (Spiriva with HandiHaler) folic acid 1 mg tablet 2 mg PO QAM 12/24/22 02/06/23 History apixaban 2.5 mg tablet (Eliquis) 2.5 mg PO BID #60 tabs 12/25/22 02/06/23 Rx amiodarone 200 mg tablet 200 mg PO QAM 01/25/23 02/06/23 History aspirin 81 mg capsule 81 mg PO QAM 01/25/23 02/06/23 History clopidogrel 75 mg tablet (Plavix) 75 mg PO QAM 01/25/23 02/06/23 History cyanocobalamin (vitamin B-12) 1,000 mcg PO QAM 01/25/23 02/06/23 History 1,000 mcg capsule empagliflozin 10 mg tablet 10 mg PO QAM 01/25/23 02/06/23 History (Jardiance) furosemide 20 mg tablet 20 mg PO QAM PRN Edema 01/25/23 02/06/23 History lansoprazole 15 mg delayed 15 mg PO QAM 01/25/23 02/06/23 History release,disintegrating tablet levothyroxine 50 mcg tablet 50 mcg PO Q2D 01/25/23 02/06/23 History Patient History Medical History (Updated 02/06/23 @ 12:54 by Pawan Geller MD) Biventricular cardiac pacemaker in situ follows with Dr. Carrington. last checked "not long ago" ~10/[address] Rivera[address] office. (pt recently switched providers) CAD (coronary artery disease) s/p NARCISO to LAD and Cx 2018 Carotid stenosis Chronic kidney disease stage 3 -- follows with Dr Pantoja COPD (chronic obstructive pulmonary disease) severe per [place] records Diabetes mellitus, type 2 NIDDM ANDRADE (dyspnea on exertion) Dysphagia HFrEF (heart failure with reduced ejection fraction) EF 25-30% 12/2022 echo History of placement of stent in LAD coronary artery (2019) 2019 at [facility] HTN (hypertension) Hyperlipidemia Hypothyroidism Left bundle branch block Mitral regurgitation Paroxysmal atrial fibrillation with RVR 12/2022 dx at [facility]. no cardioversion. Presence of stent in LAD coronary artery 2019 Presence of stent in left circumflex coronary artery (2019) 2019 at [facility] Pulmonary edema 12/2022 OR hospitalization STEMI (ST elevation myocardial infarction) 2019 Stenosis of left internal carotid artery Stroke left hemispheric (MCA territory ischemic) 12/09/22 received TNK, transferred to [facility] and thrombectomy cx d/t improvement in symptoms Subclavian artery stenosis Upper GI bleed pt denies Surgical History History of cardiac cath 2019 at [facility] History of colonoscopy History of heart artery stent total of 2 stents placed in 2019 S/P AAA repair 08/2015 [place] [facility] [place]P placement of cardiac pacemaker 2019 at [facility] -- unsure of exact reason for pacemaker Family History Other Hypertension No family history of adverse response to anesthesia Social History Smoking Status: Current every day smoker Tobacco Type: Cigarettes Cigarettes Per Day: 10-20 a day; Second Hand Exposure: Yes; Do You Dip or Chew Tobacco: No; Tobacco Cessation Education Requested by Patient: No Hx Alcohol Use: Yes Alcohol type: wine Hx Substance Use: No Preferred Language: Italian Communication Ability: Effective Conveyancer Required: No Beliefs That Will Affect Care: None marital status: Current Living Situation: Spouse How many Children do You have: 2 Other Information That Helps Us Care for You: No Feels Safe at Home: Yes Safety Concerns: Feels Safe At This Time Assistive Devices: Denture - Upper and Glasses Review of Systems Review of Systems: All systems reviewed & are unremarkable except as noted in HPI & below Physical Exam Physical Exam: Constitutional: Patient appears to be of their stated age. Patient is in no apparent distress. Patient is well-developed. Eyes: Pupils are equal round and reactive to light. Conjunctivae are normal. Anicteric sclera. Ears nose, mouth and throat: Mallampati class 1. Normal posterior oropharynx. Uvula is midline. Neck: Trachea is midline. Visual inspection is normal. Respiratory: Bilateral crackles. Prolonged phase exhalation. Cardiovascular: Regular rate and rhythm. No murmurs. No edema. Gastrointestinal: Normal bowel sounds, soft, nontender and nondistended. No hepatosplenomegaly noted. Musculoskeletal: No cyanosis. Patient is able to move all extremities. Skin: No rashes, warm dry and intact. Neurologic: No obvious focal neurological deficits seen. Psychiatric: Alert and oriented x3 with a euthymic affect. Results & Data Results & Data Vital Signs (Past 12 Hours) Vital Signs Temp Pulse Pulse Pulse Resp BP BP 02/06/23 12:45 60 14 02/06/23 11:50 60 20 136/71 142/66 H 02/06/23 11:40 60 16 136/71 140/66 02/06/23 12:10 60 20 132/69 141/65 H 02/06/23 12:00 36.8 C 60 20 127/81 142/66 H 02/06/23 11:30 60 20 145/77 H 135/69 02/06/23 11:20 60 18 147/78 H 151/72 H 02/06/23 11:10 60 16 147/81 H 142/69 H 02/06/23 11:00 60 12 153/77 H 150/82 H 02/06/23 10:50 60 20 155/85 H 144/78 H 02/06/23 10:40 60 20 156/85 H 149/82 H 02/06/23 10:35 36.0 C L 75 16 159/91 H 02/06/23 06:13 02/06/23 06:13 36.4 C L 62 22 143/91 H BP Pulse Ox O2 Del Method O2 Flow Rate 02/06/23 12:45 99 Oxymask 2 02/06/23 11:50 100 Oxymask 2 02/06/23 11:40 100 Oxymask 2 02/06/23 12:10 100 Oxymask 2 02/06/23 12:00 100 Oxymask 2 02/06/23 11:30 100 Oxymask 2 02/06/23 11:20 100 Oxymask 4 02/06/23 11:10 100 Oxymask 4 02/06/23 11:00 100 Oxymask 4 02/06/23 10:50 100 Oxymask 6 02/06/23 10:40 100 Oxymask 9 02/06/23 10:35 100 Oxymask 9 02/06/23 06:13 Room Air 02/06/23 06:13 109/69 100 Room Air Coding Level of Care Code 39144 IN/OBS CONSULT LVL 2,35M Diagnoses Stenosis of left internal carotid artery I65.22 Stroke I63.9 HFrEF (heart failure with reduced ejection fraction) I50.20 COPD (chronic obstructive pulmonary disease) J44.9
[2023-02-06] MEDS: FLUTICASONE/VILANTEROL 100/25MCG 14 PUFFS/INHALER INH SCH (14:03)
[2023-02-06] MEDS ORDERED: COUGH DROP (SUGAR FREE) LOZ 24 LOZ/1 BOX BUCCAL STA (15:20)
[2023-02-06] MEDS: ceFAZolin 2000MG 2,000 MG/15 ML SYR IV SCH (15:58)
[2023-02-06] MEDS ORDERED: IPRATROPIUM BROMIDE HFA INHALER INH PRN (18:53)
[2023-02-06] MEDS: VALSARTAN/SACUBITRIL 51/49 MG TAB PO SCH (21:43)
[2023-02-06] MEDS: APIXABAN 2.5 MG TAB PO SCH (21:43)
[2023-02-07] MEDS: ceFAZolin 2000MG 2,000 MG/15 ML SYR IV SCH (00:14)
[2023-02-07] MEDS ORDERED: LEVOTHYROXINE SODIUM 25 MCG TABLET PO SCH (06:30)
[2023-02-07] MEDS: FLUTICASONE/VILANTEROL 100/25MCG 14 PUFFS/INHALER INH SCH (08:26)
[2023-02-07] MEDS: APIXABAN 2.5 MG TAB PO SCH (08:29)
[2023-02-07] MEDS: VALSARTAN/SACUBITRIL 51/49 MG TAB PO SCH (08:29)
[2023-02-07] MEDS ORDERED: CHOLECALCIFEROL 1,000 UNITS 25 MCG TAB PO SCH (09:00)
[2023-02-07] MEDS ORDERED: METOPROLOL SUCC 25MG EXT REL TAB PO SCH (09:00)
[2023-02-07] MEDS ORDERED: FERROUS SULFATE 325 MG TAB PO SCH (09:00)
[2023-02-07] MEDS ORDERED: CYANOCOBALAMIN (B-12) 500 MCG TABLET PO SCH (09:00)
[2023-02-07] MEDS ORDERED: UMECLIDINIUM BROMIDE 62.5MCG/BLISTER 7 PUFFS/INHALER INH SCH (09:00)
[2023-02-07] MEDS ORDERED: ATORVASTATIN 40 MG TAB PO SCH (09:00)
[2023-02-07] MEDS ORDERED: EMPAGLIFLOZIN 10 MG TAB PO SCH (09:00)
[2023-02-07] MEDS ORDERED: AMIODARONE 200 MG TAB PO SCH (09:00)
[2023-02-07] MEDS ORDERED: FOLIC ACID 1 MG TAB PO SCH (09:00)
[2023-02-07] MEDS ORDERED: ASPIRIN 81 MG ECTAB PO SCH (09:00)
[2023-02-07] MEDS ORDERED: CLOPIDOGREL BISULFATE 75 MG TAB PO SCH (09:00)
[2023-02-07] MEDS ORDERED: LANSOPRAZOLE 15 MG SOLTAB PO SCH (09:00)
--- NOTE | 2023-02-07 09:21 | Critical Care Progress Note ---
Date of Service February 07, 2023 Assessment & Plan (1) Stenosis of left internal carotid artery: (2) Stroke: (3) HFrEF (heart failure with reduced ejection fraction): (4) COPD (chronic obstructive pulmonary disease): Plan She is status post TCAR. Hemodynamically stable. No acute issues at this time. Continue Breo and Incruse given her history of COPD. Okay for downgrade out of ICU. Admission and Anticipated Discharge Date Admission Date: February 06, 2023 Subjective Patient stable without any acute events overnight. She remains on room air. Hemodynamically stable. Review of Systems Review of Systems: All systems reviewed & are unremarkable except as noted in HPI & below Physical Exam Physical Exam: Constitutional: Patient appears to be of their stated age. Patient is in no apparent distress. Patient is well-developed. Eyes: Pupils are equal round and reactive to light. Conjunctivae are normal. Anicteric sclera. Ears nose, mouth and throat: Mallampati class 1. Normal posterior oropharynx. Uvula is midline. Neck: Trachea is midline. Visual inspection is normal. Respiratory: Bilateral crackles. Prolonged phase exhalation. Cardiovascular: Regular rate and rhythm. No murmurs. No edema. Gastrointestinal: Normal bowel sounds, soft, nontender and nondistended. No hepatosplenomegaly noted. Musculoskeletal: No cyanosis. Patient is able to move all extremities. Skin: No rashes, warm dry and intact. Neurologic: No obvious focal neurological deficits seen. Psychiatric: Alert and oriented x3 with a euthymic affect. Results & Data Results & Data Vital Signs (Past 12 Hours) Vital Signs Temp Pulse Pulse Resp BP BP BP 02/07/23 04:00 36.6 C 60 18 130/64 143/59 H 02/07/23 04:00 60 143/59 H 02/07/23 02:45 60 16 02/07/23 02:30 60 18 02/07/23 02:15 60 18 02/07/23 02:01 60 19 02/07/23 02:01 129/77 02/07/23 02:00 60 18 02/07/23 01:45 60 19 02/07/23 01:30 60 17 02/07/23 01:15 60 17 02/07/23 01:00 60 20 02/07/23 01:00 125/63 02/07/23 00:45 59 L 17 02/07/23 00:30 60 21 02/07/23 00:15 63 20 02/07/23 00:00 60 18 02/07/23 00:00 115/65 02/06/23 23:45 59 L 24 02/06/23 23:30 60 16 02/06/23 23:15 60 16 02/06/23 23:00 60 19 02/06/23 23:00 122/66 02/06/23 22:45 65 20 02/06/23 22:30 60 21 02/06/23 22:15 63 20 02/06/23 22:01 120/50 L 02/06/23 22:01 60 23 02/06/23 22:00 60 17 02/06/23 21:45 63 24 02/06/23 21:30 60 18 02/07/23 00:00 36.6 C 59 L 24 115/65 135/57 L 02/07/23 00:00 59 L 135/57 L Pulse Ox O2 Del Method 02/07/23 04:00 97 Room Air 02/07/23 04:00 02/07/23 02:45 96 02/07/23 02:30 93 02/07/23 02:15 95 02/07/23 02:01 91 02/07/23 02:01 02/07/23 02:00 91 02/07/23 01:45 94 02/07/23 01:30 95 02/07/23 01:15 95 02/07/23 01:00 96 02/07/23 01:00 02/07/23 00:45 95 02/07/23 00:30 97 02/07/23 00:15 98 02/07/23 00:00 95 02/07/23 00:00 02/06/23 23:45 96 02/06/23 23:30 96 02/06/23 23:15 96 02/06/23 23:00 97 02/06/23 23:00 02/06/23 22:45 100 02/06/23 22:30 99 02/06/23 22:15 100 02/06/23 22:01 02/06/23 22:01 98 02/06/23 22:00 95 02/06/23 21:45 99 02/06/23 21:30 96 06/08/23 00:00 99 Room Air 02/07/23 00:00 Coding Level of Care Code 91220 SUB INP/OBS CARE Diagnoses Stenosis of left internal carotid artery I65.22 Stroke I63.9 HFrEF (heart failure with reduced ejection fraction) I50.20 COPD (chronic obstructive pulmonary disease) J44.9
--- NOTE | 2023-02-07 14:15 | Surgery Progress Note ---
Date of Service February 07, 2023 Assessment & Plan (1) Internal carotid artery stent present: Plan: Patient is postoperative day 1 from carotid artery stenting and a TCAR procedure. She is doing well she has no neurological deficits. She will be discharged today to self-care at home. Admission and Anticipated Discharge Date Admission Date: February 06, 2023 Subjective Patient is sitting up in bed. She ate without any difficulty. She is not dizzy or lightheaded. She has no focal deficits. Physical Exam Constitutional: WD/WN, vitals as above Neck: trachea midline Respiratory: normal respiratory effort; no respiratory distress Cardiovascular: Rate/Rhythm: regular rate and regular rhythm Musculoskeletal: no cyanosis or clubbing, extremities motor strength 5/5 Skin: + incision (Incision with surrounding ecchymosis, the edges are well approximated.) Neurologic: CN's II-XI intact bilaterally and moves all extremities Psychiatric: Orientation: alert and oriented x 3 Results & Data Vital Signs (Past 12 Hours) Vital Signs Temp Pulse Pulse Resp BP BP BP 02/07/23 11:00 63 22 02/07/23 10:00 60 22 02/07/23 09:00 60 22 108/53 L 02/07/23 08:00 60 24 134/71 02/07/23 07:00 61 18 129/65 02/07/23 08:00 60 02/07/23 08:00 02/07/23 08:00 36.3 C L 02/07/23 08:00 60 143/59 H 02/07/23 04:00 36.6 C 60 18 130/64 143/59 H 02/07/23 04:00 60 143/59 H 02/07/23 02:45 60 16 02/07/23 02:30 60 18 02/07/23 02:15 60 18 Pulse Ox O2 Del Method 02/07/23 11:00 91 02/07/23 10:00 97 02/07/23 09:00 99 02/07/23 08:00 99 02/07/23 07:00 97 Room Air 02/07/23 08:00 02/07/23 08:00 Room Air 02/07/23 08:00 02/07/23 08:00 02/07/23 04:00 97 Room Air 02/07/23 04:00 02/07/23 02:45 96 02/07/23 02:30 93 02/07/23 02:15 95
--- NOTE | 2023-02-07 14:19 | Discharge Summary ---
Date of Service February 07, 2023 Admission HPI Per Admitting Provider Chief Complaint rm#7 here for f/u after stroke. States that she has no residual effects. Subjective I had the pleasure of seeing Kp today for evaluation of her left carotid stenosis. As you know she is an 82-year-old female who had a CVA involving the left hemisphere. She was transferred to [place]. She is found to have a left internal carotid artery with severe stenosis. Endarterectomy was planned at that time. When taken to the operating she cannot lay flat so the procedure was abandoned. He is here today to discuss other options. She has a history of COPD but not on home. She had an aortobifemoral bypass for abdominal aortic aneurysm in the past. She has CKD 3. She has had coronary artery stenting in the past. Her ejection fraction is 20 to 25% and does have a pacemaker in place. She also has a history of hypothyroidism and hypertension. Objective Vitals & Measurements HR: 74 (Monitored) BP: 122/78 SpO2: 98% Physical Exam On exam she is awake alert oriented x3. She is in no apparent distress. Her blood pressure is 122/78. Radials are +2 bilaterally. Her lungs were clear. Her heart had a regular rhythm. Abdominal exam is benign. Neurologic exam is intact motor and sensory function. Assessment/Plan Bilateral carotid artery stenosis At this point being that she did have a symptomatic left internal carotid artery lesion recommended a TCAR procedure due to her high risk. This can be done under MAC as a primary anesthetic mode in general as a backup. She understood the risks options benefits and agreed with this procedure. We will have her seen by Dr. Carrington preoperatively for reevaluation and clearance. Thank you very much for letting us participate in the care of this patient. Sincerely, Sondra Cameron MD Signature Line Electronic Signature on File Jun Cameron MD Author Signature Dt/Tm: 01/21/2023 03:37 PM [employer] Manager Kendrick Bhagat [facility] [address], [address] [place] [address] [facility] [place] Result Type: .Outpt Ltr Date of Service: January 21, 2023 15:31 EDT Authorization Status: Final Subject: Follow Up Visit Author or Import Date: MD Rakesh, Jun Espinosa on January 21, 2023 15:36 EDT Verified By: MD Rakesh, Jun Espinosa on January 21, 2023 15:37 EDT Encounter info: [id number], YUDI GARCIA, Clinic, 01/21/2023 - 01/21/2023 Admission Exam Per Admitting Provider On exam she is awake alert oriented x3. She is in no apparent distress. Her blood pressure is 122/78. Radials are +2 bilaterally. Her lungs were clear. Her heart had a regular rhythm. Abdominal exam is benign. Neurologic exam is intact motor and sensory function. Principal Diagnosis left internal carotid artery stenosis Discharge Exam Constitutional WD/WN, vitals as above Neck trachea midline Respiratory normal respiratory effort; no respiratory distress Cardiovascular Rate/Rhythm: regular rate and regular rhythm Musculoskeletal no cyanosis or clubbing, extremities motor strength 5/5 Skin + incision (Incision with surrounding ecchymosis, the edges are well approximated.) Neurologic CN's II-XI intact bilaterally and moves all extremities Psychiatric Orientation: alert and oriented x 3 Discharge Data Allergies Allergy/AdvReac Type Severity Reaction Status Date / Time azithromycin [From Zithromax] Allergy Severe Anaphylaxis Verified 02/06/23 06:02 Consultations 02/06/23 12:41 Consult Drawing Box Tender Routine Procedures Performed Operation Date: 02/06/23 08:00 Actual Procedures p Left Transcarotid Revascularization, ultrasound of right common femoral vein(Left) - Jun Cameron MD Ordered Studies 02/06/23 07:06 EV angio carotid cerv LT Routine 02/06/23 08:14 US EV guide vascular access Routine Hospital Course (1) Internal carotid artery stent present: Patient is postoperative day 1 from carotid artery stenting and a TCAR procedure. She is doing well she has no neurological deficits. She will be discharged today to self-care at home. Total Time Total Time Spent Total Time Spent (In Minutes): 0 Discharge Plan Discharge Items Patient Disposition: Home - Self-Care Reason For Visit: LEFT CAROTID STENOSIS Discharge Diagnosis: Left internal carotid artery stenosis Activity: Per Instructions section Non-emergency contact: Surgeon Call non-emergency contact if: your temperature is above 101.5, your wound has increased redness, your wound has increased drainage and your wound pain has increased Follow-up/Referrals: Courtney Naik MD [Primary Care Provider] - Diet: Heart Healthy Addtl Attending Provider Instructions: SPECIAL CARE INSTRUCTIONS: Medications: * Continue to take Aspirin, Plavix, and statin for 30 days postop nonstop. If you need to stop any of the 3 after the 30 days please notify my office. Incision Care: * You may shower, but do not rub incision. You may let the warm soapy water run over it. Be sure to dry the incision well after bathing. * Do not shave directly over the incision until it is healed. * DO NOT IMMERSE THE INCISION IN A TUB/POOL/etc. UNTIL HEALED. Restrictions: * Do not drive for at least one week or if you are still taking any narcotic pain medication. * Do not lift anything heavier than a gallon of milk for one week after going home. Possible Complications: * Numbness - It is normal to have some numbness around the incision. Numbness can extend beyond the incision to areas of the neck, ear and face. The numbness is due to bruising of nerves during the surgery and will gradually improve over a period of months. * Hoarseness/Difficulty Speaking and Swallowing - The bruising of nerves in the neck can also cause a hoarse voice, difficulty speaking or swallowing. This may improve over time, HOWEVER, if it continues for more than a few days please contact our office ([phone]). * Excessive Swelling - There will be some swelling immediately after surgery which usually resolves within one week. If you notice that the swelling is getting worse, notify your surgeon ([phone]). * Drainage/Bleeding - If there is any drainage or bleeding, it should be a very small amount (less than a teaspoon per day). If you have excessive bleeding or drainage from the incision, call your surgeon ([phone]) right away. ACTIVATION OF EMERGENCY MEDICAL SYSTEM: Call 911, immediately, if you experience any of the following: Warning Signs and Symptoms of Stroke: * Sudden numbness or weakness of the face, arm or leg, especially on one side of the body * Sudden confusion, trouble speaking or understanding * Sudden trouble seeing in one or both eyes * Sudden trouble walking, dizziness, loss of balance or coordination * Sudden severe headache with no cause Do not delay calling 911 if you experience any warning signs or symptoms of a stroke. Delay in seeking medical attention may affect what treatments can be given to you. Risk Factors for Stroke: You can reduce your chances of stroke by working with your medical provider to adopt a healthy lifestyle. Some specific ways to lower your chance of stroke are: * If you are a smoker, now is the time to stop smoking cigarettes * If you are diabetic, improve the control of your blood sugars * Avoid excessive amounts of alcohol * Control high blood pressure * Lose weight if you are overweight * Be sure to lead an active lifestyle * Eat a healthy diet low in salt, cholesterol and fat You should know about other risk factors for stroke that you are unable to control. These include: * Age 55 years or older * Male gender * Certain racial groups: , or / * Family History of Stroke, Mini stroke or Heart Attack * Sickle Cell Disease You will be receiving a call from the Vascular Surgery Nurse after you are discharged. FOLLOW UP VISIT: It is important for you to keep your follow up appointments with your medical provider. Keep any scheduled doctor appointments. Call [phone] to schedule a follow up appointment if one not already scheduled. Pending Studies at Discharge: No Stand-Alone Forms: My [facility], Smoking Cessation Medications and DC Order Prescriptions: New oxycodone-acetaminophen [Percocet] 5-325 mg tablet 1 tab PO Q8H PRN (Reason: pain) Qty: 7 0RF Continued folic acid 1 mg tablet 2 mg PO QAM Eliquis 2.5 mg tablet 2.5 mg PO BID Qty: 60 2RF fluticasone propion-salmeterol [Wixela Inhub] 250-50 mcg/dose blister with device 1 inh INHALATION BID metoprolol succinate [Toprol XL] 25 mg tablet extended release 24 hr 25 mg PO QAM Qty: 30 0RF levothyroxine 25 mcg tablet 25 mcg PO Q OTHER DAY Combivent Respimat 20-100 mcg/actuation mist 1 puffs INH Q6H PRN (Reason: cough, wheeze, shortness of breath ) Qty: 4 0RF Rx Instructions: PT STATES "USES BID EVERY DAY". Entresto 49-51 mg tablet 1 tab PO BID atorvastatin 80 mg tablet 80 mg PO QAM Spiriva with HandiHaler 18 mcg capsule, w/inhalation device 1 cap INHALATION QAM ferrous sulfate 325 mg (65 mg iron) Tablet 325 mg PO QAM cholecalciferol (vitamin D3) [Vitamin D3] 25 mcg (1,000 unit) Tablet 25 mcg PO QAM levothyroxine 50 mcg Tablet 50 mcg PO Q2D Rx Instructions: alternates with levothyroxine 25mcg furosemide 20 mg Tablet 20 mg PO QAM PRN (Reason: Edema) lansoprazole 15 mg Tablet,Disintegrat, Delay Rel 15 mg PO QAM aspirin 81 mg Capsule 81 mg PO QAM amiodarone 200 mg tablet 200 mg PO QAM clopidogrel [Plavix] 75 mg tablet 75 mg PO QAM Jardiance 10 mg tablet 10 mg PO QAM cyanocobalamin (vitamin B-12) 1,000 mcg capsule 1,000 mcg PO QAM Rx Instructions: purchase [id number] Discharge Orders: Discharge Order (Routine); Ordered 02/07/23 Ordered By: Jun Cameron Admission Data Admit Date/Time: 02/06/23 07:53 Attending Provider: Jun Cameron Admit Provider: Jun Cameron Primary Care Provider: Courtney Naik Other Providers: Shady Jeffries ; Jose Manzano ; Binu Brantley ; Pawan Geller ; Ari Stahl ; Kip Aiken ; Serenity Dhaliwal ; Warren Lobato ; Aparna Fowler
[2023-02-08] MEDS ORDERED: LEVOTHYROXINE SODIUM 50 MCG TABLET PO SCH (06:30)
== END 2023-02-07 15:20 | disposition home or self-care (01) | DRG 35 ==
LOC: ASU 05:39 → 1E 07:53
PROC: EV.TCAR (2023-02-06 08:00)

== ENCOUNTER 2023-03-12 23:25 | Inpatient (IN) ==
[2023-03-13 00:06] LABS: iSTAT Arterial Blood Gas HCO3 7 meg/L (19-24); iSTAT Arterial Blood Gas pCO2 17 mmHg (35-46); iSTAT Arterial Blood Gas pH 7.22 (7.35-7.45); iSTAT Arterial Blood Gas pO2 200 mmHg (80-95); iSTAT Carbon Dioxide 7 mmol/L (24-31); iSTAT Hematocrit 25 % (37-47); iSTAT Hemoglobin 8.5 g/dl (12.0-16.0); iSTAT Potassium 5.2 mmol/L (3.3-5.0); iSTAT Sodium 129 mmol/L (135-144)
[2023-03-13 00:36] LABS: Hematocrit (blood only) 24.4 % (37.0-47.0); Hemoglobin 7.3 g/dl (12.0-16.0); Mean Corpuscular Hemoglobin 27.5 pg (25.0-34.0); Mean Corpuscular Hgb Conc 29.9 g/dL (32.0-36.0); Mean Corpuscular Volume 92.1 fL (80.0-100.0); Mean Platelet Volume 11.7 fL (9.4-12.4); Nucleated RBC # (auto) 0.33 K/uL (0-0.12); Nucleated RBC % (auto) 2.1 %; Platelet Count 251 K/uL (130-400); RDW Coefficient of Variation 18.6 % (11.5-14.5); RDW Standard Deviation 62.8 fL (36.4-46.3); Red Blood Count 2.65 M/uL (4.20-5.40); White Blood Count 15.44 K/ul (4.8-10.8)
[2023-03-13 00:44] LABS: Anion Gap 17 (3-11); BUN Creatinine Ratio 18.9 (10-20); Blood Urea Nitrogen 43 mg/dl (6-23); Calcium 8.3 mg/dl (8.6-10.3); Carbon Dioxide 11 mmol/L (21-32); Chloride 101 mmol/L (98-107); Creatinine Clr Calc Pharmacy 15.6 ml/min; Est GFR (African American) 22.8 ml/min; Est GFR (Non-African American) 19.6 ml/min; Glucose 177 mg/dl (70-99(Fasting)); Potassium 5.3 mmol/L (3.5-5.1); Sodium 129 mmol/L (136-145)
[2023-03-13 00:50] LABS: Troponin I High Sensitivity 39.1 pg/ml (0-14)
[2023-03-13 00:55] LABS: Basophils # (auto) 0.02 K/uL (0-0.2); Basophils % (auto) 0.1 %; Echinocytes 2+; Hypochromasia Present; Immature Granulocytes # (auto) 0.07 K/uL (0.01-0.20); Immature Granulocytes % (auto) 0.5 %; Lymphocytes # (auto) 0.44 K/uL (1.2-3.4); Lymphocytes % (auto) 2.8 %; Monocytes # (auto) 0.35 K/uL (0.11-0.59); Monocytes % (auto) 2.3 %; Neutrophils # (auto) 14.56 K/uL (1.40-6.50); Neutrophils % (auto) 94.3 %
[2023-03-13] MEDS ORDERED: CEFEPIME 2,000 MG/20 ML VIAL IV STA (00:57)
[2023-03-13] MEDS ORDERED: VANCOMYCIN HCL 1,500 MG in SODIUM CHLORIDE 0.9% 500 ML IV ONE (01:00)
[2023-03-13] MEDS ORDERED: VANCOMYCIN CONSULT ACTIVE PRN (01:00)
[2023-03-13 01:11] LABS: Aspartate Aminotransferase 9035 U/L (13-39)
[2023-03-13 01:13] LABS: Alanine Aminotransferase > 2500 U/L (7-52); Albumin Level 3.3 gm/dl (3.4-5.0); Alkaline Phosphatase 165 U/L (34-104); Bilirubin Direct 0.7 mg/dl (0-0.2); Bilirubin,Total 1.3 mg/dl (0.2-1.0); Magnesium 2.1 mg/dl (1.7-2.4); Total Protein 5.9 gm/dl (6.0-8.3)
[2023-03-13 01:16] LABS: Influenza A virus by PCR Negative (Neg); Influenza B virus by PCR Negative (Neg); RSV by PCR Negative (Neg); SARS CoV2 RNA(COVID-19) Ceph NEGATIVE (Negative)
[2023-03-13] MEDS ORDERED: SODIUM CHLORIDE 0.9% 1000ML 1,000 ML IV ONE (01:40)
[2023-03-13] MEDS ORDERED: PANTOprazole 40 MG in SYRINGE 0 ML IV ONE (02:00)
[2023-03-13 02:14] LABS: Appearance Urine Turbid (Clear); Bacteria Urine Automated 4+ (Negative); Bilirubin Urine Negative (Negative); Blood Urine 3+ (Negative); Color Urine Dark Yellow; Epithelial Cell Urine Auto >30 /lpf (0-5); Glucose Urine UA 2+ (Negative); Ketones Urine Trace (Negative); Leukocyte Esterase Urine 1+ (Negative); Nitrite Urine Negative (Negative); Protein Urine 2+ (Negative); Specific Gravity Urine 1.019 (1.000-1.030); Urobilinogen Urine Negative (Negative); pH Urine 5.5 (4.5-7.5)
[2023-03-13 02:32] LABS: RBC Urine Automated 0-4 /hpf (0-4)
[2023-03-13 02:35] LABS: Amphetamines+Metham, Urine Neg (Neg); Barbiturates, Urine Neg (Neg); Benzodiazepine, Urine Neg (Neg); Cocaine, Urine Neg (Neg); MDMA (Ecstacy), Urine Neg (Neg); Methadone, Urine Neg (Neg); Opiate, Urine Neg (Neg); Phencyclidine, Urine Neg (Neg)
[2023-03-13 02:46] LABS: Anion Gap 18 (3-11); Blood Urea Nitrogen 44 mg/dl (6-23); Calcium 8.4 mg/dl (8.6-10.3); Carbon Dioxide 10 mmol/L (21-32); Chloride 102 mmol/L (98-107); Creatinine Clr Calc Pharmacy 16.1 ml/min; Est GFR (African American) 23.8 ml/min; Est GFR (Non-African American) 20.5 ml/min; Glucose 77 mg/dl (70-99(Fasting)); Potassium 4.9 mmol/L (3.5-5.1); Sodium 130 mmol/L (136-145)
[2023-03-13 02:50] LABS: Fibrinogen 212 mg/dl (184-400); INR 2.4 (0.9-1.1); Prothrombin Time 25.2 Seconds (9.0-12.0)
[2023-03-13 02:52] LABS: Troponin I High Sensitivity 44.1 pg/ml (0-14)
[2023-03-13 03:04] LABS: Alanine Aminotransferase > 2500 U/L (7-52); Albumin Level 3.2 gm/dl (3.4-5.0); Alkaline Phosphatase 172 U/L (34-104); Aspartate Aminotransferase 9454 U/L (13-39); Bilirubin Direct 0.6 mg/dl (0-0.2); Bilirubin,Total 1.2 mg/dl (0.2-1.0); Creatine Kinase 298 U/L (26-192); Lipase 111 U/L (11-82); Total Protein 5.9 gm/dl (6.0-8.3)
[2023-03-13] MEDS ORDERED: OPTIRAY 320 100ml IV ONE (03:30)
[2023-03-13] MEDS ORDERED: LORazepam 2 MG/1 ML VIAL ONE (03:58)
[2023-03-13] MEDS ORDERED: Heparin IV Adult Wt-Based Standard *NO* Bolus Protocol IV SCH (04:40)
--- NOTE | 2023-03-13 04:40 | CT Scan Report ---
Exam(s): CT ABDOMEN + PELVIS With Contrast IV Amt: 93 ML OPTIRAY 320 EXAM: CT Abdomen and Pelvis With Intravenous Contrast CLINICAL HISTORY: Reason for exam: elevated lactate ?gut ischemia ?thrombus. TECHNIQUE: Axial computed tomography images of the abdomen and pelvis with intravenous contrast. CTDI is 24.88 mGy and DLP is 1166.77 mGy-cm. Automated exposure control was utilized for the study. A dose lowering technique was utilized adhering to the principles of ALARA. CONTRAST: Patient received 93 ML OPTIRAY 320 of IV contrast COMPARISON: No relevant prior studies available. FINDINGS: ABDOMEN: Liver: Hepatic steatosis. Gallbladder and bile ducts: Unremarkable. Pancreas: Unremarkable. Spleen: Unremarkable. Adrenals: Unremarkable. Kidneys and ureters: Atrophic left kidney. Chronic infarcts in the right kidney. Stomach and bowel: No pneumatosis or perforation at this time. No obstruction. No mucosal inflammation. PELVIS: Appendix: No findings to suggest acute appendicitis. Bladder: Full catheter in the bladder. Reproductive: Unremarkable as visualized. ABDOMEN and PELVIS: Intraperitoneal space: Unremarkable. No free air. No significant fluid collection. Bones/joints: See below. Soft tissues: Unremarkable. Vasculature: Occluded celiac artery and proximal SMA. There is some reconstitution of flow within the SMA. The GLENN also appears occluded. Status post aortobifemoral bypass. Lymph nodes: Unremarkable. 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 There is some reconstitution of flow within the SMA. The GLENN also appears occluded. The patient is certainly at risk of bowel ischemia. No pneumatosis or bowel perforation at this time. Electronically signed by: Mehdi Devine MD 03/13/23 04:39 AM
--- NOTE | 2023-03-13 04:43 | Critical Care Consultation ---
Date of Consultation March 13, 2023 Assessment & Plan (1) Arterial occlusion: (2) Acute liver failure: (3) High anion gap metabolic acidosis: (4) Shock: (5) COPD (chronic obstructive pulmonary disease): (6) HFrEF (heart failure with reduced ejection fraction): (7) Paroxysmal atrial fibrillation with RVR: Plan Following discussion with the patient, specialist, and family- decision was ultimately made to admit patient and focus on comfort measures. The patient is severely ill at this time with multiple organ dysfunction in the setting of what is known now occluded GLENN/SMA/Celiac. She is with severely elevated liver enzymes, now encephalopathic, with increased INR. This is also likely ischemic vs. drug toxicity (amiodarone). Patient originally voiced comfort measures when she was appropriate and able to recall discussion. She clinically was declining and with worsening mentation, family was notified and was in alignment with comfort measures and not puruse further transfer or high risk surgical evaluation/correction. I have personally spent 65 minutes of critical care time in the direct management of this patient. This is a life/limb threatening event. This includes time spent evaluating patient, direct bedside care, chart review, placing orde rs, interpretation of diagnostic studies, discussion with consultants, patient, and family members, as well as other required patient management activities. This time is exclusive of all separately billable procedures, and separate from and in addition to any other critical care service time. Thank you for allowing us to participate in the care of this patient. Please refer to my attending physician's documentation for any further recommendations. History of Present Illness Reason for Consultation: Acute liver failure Requesting Physician: Karoline Mcdonald DO Attending Physician: Karoline Mcdonald DO History of Present Illness 82 YOF with medical history of: Stroke, Internal Carotid Artery stenting, Afib/Atrial Tachycardia (on Amiodarone and Eliquis), COPD, HFrEF with AICD, CAD, aortobifemoral bypass, AAA, . Patient recent history is significant for CHF exacerbation and Afib in December 2022. During this time patient was initiated on Amiodarone and anticoagulated with apixaban. She presented again in December with vision loss where she received TnKAse for symptoms. She had worsening neurologic deficits and was transferred to [facility] for possible neurological e ndovascular procedure, however on arrival there her symptoms were improving. She spent time in the [facility] ICU and was discharged without intervention needed. In January the patient underwent a left sided TCAR for her left carotid disease and was discharged without prolonged hospital course. On 03/1223 the patient presented to the [facility] for complaints of fatigue, abdominal discomfort, and constipation. In the EMD, the patient had routine labs performed to include lactate and CXR completed. Her labs returned with elevated lactate to 12, AGAP acidosis with GAP of 18, TAZ on CKD III with LONG TERM of 2.3 and severely elevated liver enzymes to AST 9454 and ALT>2500. She had one set of blood cultures performed and antibiotics administered. Hospital Medicine was consulted for admission. In regards to her acute lab abnormalities, diagnosis and disposition for her severely elevated liver enzymes, further work up was instituted as well as IVF administered. She has had CT of the abdomen/pelvis completed to rule out ischemia as well as liver Doppler studies. She was unable to get CTA secondary to poor IV access and declined CVL placement by EMD. Coagulation studies were evaluated with increase in INR to 2.4. Toxicology screen was negative and Tylenol Level was also negative. CT of the abdomen/pelvis was resulted with occluded celiac artery and proximal SMA as well as GLENN occlusion, currently without pneumatosis. Vascular Surgery was consulted and would need open surgical revascularization and transfer. Recommended initiation of anticoagulation. Overall the patient has high mortality - Her acute liver failure at this time is multifactorial to include ischemic as well as possibly amiodarone toxicity, idiopathic, and/or congestive failure, infectious/viral. ICU was consulted s econdary to her elevated liver enzymes, acidosis, and worsening shock perfusion. with increased lactate and modeled legs as well as dusky digits. She has received minimal resuscitation at this time. With her current status and multiple medical co-morbidities we reviewed further liver failure prognosis as well as renal failure and shock. We discussed options to optimize her perfusion however with treatment of underlying liver failure and bowel ischemia is likely terminal event. Patient was given options for full supportive care with vasopressor agents and close monitoring- which patient declined. She was given the option for supportive care with IVF, anticoagulation, and pain medicine, which she replied "that option sounds good, lets focus on that." Patient was asked by myself as well as Dr. Mcdonald and at this time the patient is with increasing encephalopathy which is likely related to decompensation and medication administration. was updated by Dr. Mcdonald at 0513, for which I was present, with the information and surgical option/evaluation which would require transfer to a tertiary center with that being she carries a significant perioperative mortality. confirmed that they had talked about this before and she would want to be comfortable. Patient will be admitted to the PCU for comfort care. Allergies Allergy/AdvReac Type Severity Reaction Status Date / Time azithromycin [From Zithromax] Allergy Severe Anaphylaxis Verified 02/06/23 06:02 Home Medications Medication Instructions Recorded Confirmed Type levothyroxine 25 mcg tablet 25 mcg PO Q OTHER DAY 07/17/19 02/06/23 History ipratropium 20 mcg-albuterol 100 1 puffs inhalation Q6H PRN cough, 11/10/19 02/06/23 Rx mcg/actuation mist for inhalation wheeze, shortness of breath #4 (Combivent Respimat) grams fluticasone 250 mcg-salmeterol 50 1 inh inhalation BID 02/26/20 02/06/23 History mcg/dose blistr powdr for inhalation (Wixela Inhub) metoprolol succinate 25 mg 25 mg PO QAM #30 tabs 03/01/20 02/06/23 Rx tablet,extended release 24 hr (Toprol XL) atorvastatin 80 mg tablet 80 mg PO QAM 12/02/22 02/06/23 History cholecalciferol (vitamin D3) 25 25 mcg PO QAM 12/02/22 02/06/23 History mcg (1,000 unit) tablet (Vitamin D3) ferrous sulfate 325 mg (65 mg 325 mg PO QAM 12/02/22 02/06/23 History iron) tablet sacubitril 49 mg-valsartan 51 mg 1 tab PO BID 12/02/22 02/06/23 History tablet (Entresto) tiotropium bromide 18 mcg capsule 1 cap inhalation QAM 12/02/22 02/06/23 History with inhalation device (Spiriva with HandiHaler) folic acid 1 mg tablet 2 mg PO QAM 12/24/22 02/06/23 History apixaban 2.5 mg tablet (Eliquis) 2.5 mg PO BID #60 tabs 12/25/22 02/06/23 Rx amiodarone 200 mg tablet 200 mg PO QAM 01/25/23 02/06/23 History aspirin 81 mg capsule 81 mg PO QAM 01/25/23 02/06/23 History clopidogrel 75 mg tablet (Plavix) 75 mg PO QAM 01/25/23 02/06/23 History cyanocobalamin (vitamin B-12) 1,000 mcg PO QAM 01/25/23 02/06/23 History 1,000 mcg capsule empagliflozin 10 mg tablet 10 mg PO QAM 01/25/23 02/06/23 History (Jardiance) furosemide 20 mg tablet 20 mg PO QAM PRN Edema 01/25/23 02/06/23 History lansoprazole 15 mg delayed 15 mg PO QAM 01/25/23 02/06/23 History release,disintegrating tablet levothyroxine 50 mcg tablet 50 mcg PO Q2D 01/25/23 02/06/23 History oxycodone-acetaminophen 5 mg-325 1 tab PO Q8H PRN pain #7 tabs 02/07/23 Rx mg tablet (Percocet) Patient History Medical History Biventricular cardiac pacemaker in situ follows with Dr. Carrington. last checked "not long ago" ~10/[address] Rivera[address] office. (pt recently switched providers) CAD (coronary artery disease) s/p NARCISO to LAD and Cx 2018 Carotid stenosis Chronic kidney disease stage 3 -- follows with Dr Pantoja COPD (chronic obstructive pulmonary disease) severe per [place] records Diabetes mellitus, type 2 NIDDM ANDRADE (dyspnea on exertion) Dysphagia HFrEF (heart failure with reduced ejection fraction) EF 25-30% 12/2022 echo History of placement of stent in LAD coronary artery (2018) 2018 at [facility] HTN (hypertension) Hyperlipidemia Hypothyroidism Left bundle branch block Mitral regurgitation Paroxysmal atrial fibrillation with RVR 12/2022 dx at [facility]. no cardioversion. Presence of stent in LAD coronary artery 2018 Presence of stent in left circumflex coronary artery (2018) 2018 at [facility] Pulmonary edema 12/2022 [facility] hospitalization STEMI (ST elevation myocardial infarction) 2019 Stenosis of left internal carotid artery Stroke left hemispheric (MCA territory ischemic) 12/09/22 received TNK, transferred to [facility] and thrombectomy cx d/t improvement in symptoms Subclavian artery stenosis Upper GI bleed pt denies Surgical History History of cardiac cath 2019 at [facility] History of colonoscopy History of heart artery stent total of 2 stents placed in 2019 S/P AAA repair 08/2015 at [facility] S/P placement of cardiac pacemaker 2019 at [facility] -- unsure of exact reason for pacemaker Family History Other Hypertension No family history of adverse response to anesthesia Social History Smoking Status: Never smoker Tobacco Type: Cigarettes Cigarettes Per Day: 10-20 a day; Second Hand Exposure: Yes; Do You Dip or Chew Tobacco: No; Hx Alcohol Use: Yes Alcohol type: wine Hx Substance Use: No Preferred Language: Yi Communication Ability: Effective International Trade Compliance Manager Required: No Beliefs That Will Affect Care: None marital status: Current Living Situation: Spouse How many Children do You have: 2 Feels Safe at Home: Yes Assistive Devices: None Review of Systems Review of Systems: REVIEW OF SYSTEMS: Constitutional: No fever, sweats or chills Eyes: No diplopia, no worsening or blurred vision ENT: normal hearing, no trouble swallowing Respiratory: No cough, sputum, dyspnea at rest or on exertion Cardiovascular: No chest pain, tightness or palpitations Abdomen: (+) pain, constipation, nausea, NO vomiting, diarrhea Musculoskeletal:(+) back joint pain, NO calf pain, swelling Neurologic: No weakness, numbness/tingling, or balance problems Skin: No rash or itch Physical Exam Physical Exam: PHYSICAL EXAM: General: Initially awake and responding appropriately, with declination to somnolence and grade I-II encephalopathy Head: Normocephalic, atraumatic ENT: PERRL, EOMI, no pharyngeal exudate, mucous membranes dry Neuro: Initially AAO x 3, speech is appropriate, strength intact bilaterally 4/5, sensation intact and equal all extremities and dermatomes, no pronator drift Chest: equal rise and fall of the chest, no accessory muscle use, no heaves or thrills, Clear to auscultation, on room air, Cardiac: Regular rate and rhythm, skin cool and clammy with mottling to legs and dusky digit, cap refill >5 seconds, peripheral pulses +2 no JVD, no murmur, no JVD, no edema GI: absent bowel sounds, abdomen soft, tender palpation : C[place]rena to gravity Results & Data Results & Data Vital Signs (Past 12 Hours) Vital Signs Temp Pulse Resp BP BP Pulse Ox O2 Del Method 03/13/23 04:13 110/80 03/13/23 03:34 13 03/13/23 02:45 62 24 100 03/13/23 02:30 60 24 100 03/13/23 02:15 18 100 03/13/23 02:00 109/42 L 03/13/23 03:36 64 03/13/23 02:00 62 25 H 95 Nasal Cannula 03/13/23 01:45 64 26 H 100 03/13/23 01:30 60 25 H 100 03/13/23 01:30 134/64 03/13/23 01:15 61 25 H 99 03/13/23 01:01 59 L 21 90 03/13/23 01:01 110/54 L 03/13/23 01:00 59 L 23 99 03/13/23 00:45 60 27 H 100 03/13/23 00:35 63 24 100 03/13/23 00:35 103/56 L 03/13/23 00:30 71 22 103/56 L 92 03/13/23 00:15 63 23 78 L 03/13/23 00:05 110/59 L 03/13/23 00:05 67 26 H 100 03/13/23 00:00 61 24 100 03/12/23 23:45 60 25 H 100 BiPAP 03/12/23 23:39 64 24 100 03/12/23 23:41 BiPAP 03/12/23 23:16 Non-rebreather 03/12/23 23:16 Non-rebreather 03/12/23 23:16 36.8 C 66 30 H 110/59 L 97 Non-rebreather 03/12/23 23:16 Non-rebreather 03/12/23 23:55 29 H 100 03/12/23 23:39 70 O2 Flow Rate FiO2 03/13/23 04:13 03/13/23 03:34 03/13/23 02:45 03/13/23 02:30 03/13/23 02:15 03/13/23 02:00 03/13/23 03:36 03/13/23 02:00 3 03/13/23 01:45 03/13/23 01:30 03/13/23 01:30 03/13/23 01:15 03/13/23 01:01 03/13/23 01:01 03/13/23 01:00 03/13/23 00:45 03/13/23 00:35 03/13/23 00:35 03/13/23 00:30 03/13/23 00:15 03/13/23 00:05 03/13/23 00:05 03/13/23 00:00 03/12/23 23:45 03/12/23 23:39 03/12/23 23:41 03/12/23 23:16 03/12/23 23:16 03/12/23 23:16 03/12/23 23:16 15 03/12/23 23:55 30 03/12/23 23:39 Laboratory Results Abnormal lab results 03/12/23 03/12/23 03/12/23 Range/Units 23:36 23:53 23:59 WBC (4.8-10.8) K/ul RBC (4.20-5.40) M/uL Hgb (12.0-16.0) g/dl POC Hgb 8.5 L (12.0-16.0) g/dl Hct (37.0-47.0) % POC Hct 25 L (37-47) % MCHC (32.0-36.0) g/dL RDW Std Deviation (36.4-46.3) fL RDW Coeff of Vanessa (11.5-14.5) % Neut # (Auto) (1.40-6.50) K/uL Lymph # (Auto) (1.2-3.4) K/uL Absolute Nucleated RBC (0-0.12) K/uL PT (9.0-12.0) Seconds INR (0.9-1.1) APTT (21.0-31.0) Seconds POC pH 7.22 L (7.35-7.45) POC pCO2 17 L (35-46) mmHg POC pO2 200 H (80-95) mmHg POC HCO3 7 L (19-24) erika/L POC Total CO2 7 L* (24-31) mmol/L POC Base Excess -21.0 L (-9-1.8) erika/L POC ABG O2 Sat 100.0 H (90-95) % POC Sodium 129 L (135-144) mmol/L Sodium (136-145) mmol/L POC Potassium 5.2 H (3.3-5.0) mmol/L Potassium (3.5-5.1) mmol/L Carbon Dioxide (21-32) mmol/L Anion Gap (3-11) BUN (6-23) mg/dl Creatinine (0.6-1.2) mg/dl Glucose (70-99(Fasting)) mg/dl POC Glucose 12 L* 18 L* (70-99) mg/dl Lactate (0.4-2.0) mmol/L Calcium (8.6-10.3) mg/dl Total Bilirubin (0.2-1.0) mg/dl Direct Bilirubin (0-0.2) mg/dl AST (13-39) U/L ALT (7-52) U/L Alkaline Phosphatase (34-104) U/L Total Creatine Kinase (26-192) U/L Troponin I High Sens (0-14) pg/ml B-Natriuretic Peptide (0-100) pg/ml Total Protein (6.0-8.3) gm/dl Albumin (3.4-5.0) gm/dl Lipase (11-82) U/L Urine Appearance (Clear) Urine Protein (Negative) Urine Glucose (UA) (Negative) Urine Ketones (Negative) Urine Blood (Negative) Ur Leukocyte Esterase (Negative) Urine WBC (Auto) (0-5) /hpf U Hyaline Cast (Auto) (0-5) /lpf U Epithel Cells (Auto) (0-5) /lpf Urine Bacteria (Auto) (Negative) Acetaminophen (10-30) ug/ml 03/13/23 03/13/23 03/13/23 Range/Units 00:03 00:03 00:03 WBC 15.44 H (4.8-10.8) K/ul RBC 2.65 L (4.20-5.40) M/uL Hgb 7.3 L (12.0-16.0) g/dl POC Hgb (12.0-16.0) g/dl Hct 24.4 L (37.0-47.0) % POC Hct (37-47) % MCHC 29.9 L (32.0-36.0) g/dL RDW Std Deviation 62.8 H (36.4-46.3) fL RDW Coeff of Vanessa 18.6 H (11.5-14.5) % Neut # (Auto) 14.56 H (1.40-6.50) K/uL Lymph # (Auto) 0.44 L (1.2-3.4) K/uL Absolute Nucleated RBC 0.33 H (0-0.12) K/uL PT (9.0-12.0) Seconds INR (0.9-1.1) APTT (21.0-31.0) Seconds POC pH (7.35-7.45) POC pCO2 (35-46) mmHg POC pO2 (80-95) mmHg POC HCO3 (19-24) erika/L POC Total CO2 (24-31) mmol/L POC Base Excess (-9-1.8) erika/L POC ABG O2 Sat (90-95) % POC Sodium (135-144) mmol/L Sodium 129 L (136-145) mmol/L POC Potassium (3.3-5.0) mmol/L Potassium 5.3 H (3.5-5.1) mmol/L Carbon Dioxide 11 L (21-32) mmol/L Anion Gap 17 H (3-11) BUN 43 H (6-23) mg/dl Creatinine 2.28 H (0.6-1.2) mg/dl Glucose 177 H (70-99(Fasting)) mg/dl POC Glucose (70-99) mg/dl Lactate 12.9 H* (0.4-2.0) mmol/L Calcium 8.3 L (8.6-10.3) mg/dl Total Bilirubin 1.3 H (0.2-1.0) mg/dl Direct Bilirubin 0.7 H (0-0.2) mg/dl AST 9035 H (13-39) U/L ALT > 2500 H (7-52) U/L Alkaline Phosphatase 165 H (34-104) U/L Total Creatine Kinase (26-192) U/L Troponin I High Sens 39.1 H (0-14) pg/ml B-Natriuretic Peptide (0-100) pg/ml Total Protein 5.9 L (6.0-8.3) gm/dl Albumin 3.3 L (3.4-5.0) gm/dl Lipase (11-82) U/L Urine Appearance (Clear) Urine Protein (Negative) Urine Glucose (UA) (Negative) Urine Ketones (Negative) Urine Blood (Negative) Ur Leukocyte Esterase (Negative) Urine WBC (Auto) (0-5) /hpf U Hyaline Cast (Auto) (0-5) /lpf U Epithel Cells (Auto) (0-5) /lpf Urine Bacteria (Auto) (Negative) Acetaminophen (10-30) ug/ml 03/13/23 03/13/23 03/13/23 Range/Units 00:03 00:03 00:03 WBC (4.8-10.8) K/ul RBC (4.20-5.40) M/uL Hgb (12.0-16.0) g/dl POC Hgb (12.0-16.0) g/dl Hct (37.0-47.0) % POC Hct (37-47) % MCHC (32.0-36.0) g/dL RDW Std Deviation (36.4-46.3) fL RDW Coeff of Vanessa (11.5-14.5) % Neut # (Auto) (1.40-6.50) K/uL Lymph # (Auto) (1.2-3.4) K/uL Absolute Nucleated RBC (0-0.12) K/uL PT 25.2 H (9.0-12.0) Seconds INR 2.4 H (0.9-1.1) APTT 36.2 H (21.0-31.0) Seconds POC pH (7.35-7.45) POC pCO2 (35-46) mmHg POC pO2 (80-95) mmHg POC HCO3 (19-24) erika/L POC Total CO2 (24-31) mmol/L POC Base Excess (-9-1.8) erika/L POC ABG O2 Sat (90-95) % POC Sodium (135-144) mmol/L Sodium (136-145) mmol/L POC Potassium (3.3-5.0) mmol/L Potassium (3.5-5.1) mmol/L Carbon Dioxide (21-32) mmol/L Anion Gap (3-11) BUN (6-23) mg/dl Creatinine (0.6-1.2) mg/dl Glucose (70-99(Fasting)) mg/dl POC Glucose (70-99) mg/dl Lactate (0.4-2.0) mmol/L Calcium (8.6-10.3) mg/dl Total Bilirubin (0.2-1.0) mg/dl Direct Bilirubin (0-0.2) mg/dl AST (13-39) U/L ALT (7-52) U/L Alkaline Phosphatase (34-104) U/L Total Creatine Kinase (26-192) U/L Troponin I High Sens (0-14) pg/ml B-Natriuretic Peptide (0-100) pg/ml Total Protein (6.0-8.3) gm/dl Albumin (3.4-5.0) gm/dl Lipase (11-82) U/L Urine Appearance (Clear) Urine Protein (Negative) Urine Glucose (UA) (Negative) Urine Ketones (Negative) Urine Blood (Negative) Ur Leukocyte Esterase (Negative) Urine WBC (Auto) (0-5) /hpf U Hyaline Cast (Auto) (0-5) /lpf U Epithel Cells (Auto) (0-5) /lpf Urine Bacteria (Auto) (Negative) Acetaminophen < 3 L (10-30) ug/ml 03/13/23 03/13/23 03/13/23 Range/Units 00:04 01:22 01:23 WBC (4.8-10.8) K/ul RBC (4.20-5.40) M/uL Hgb (12.0-16.0) g/dl POC Hgb (12.0-16.0) g/dl Hct (37.0-47.0) % POC Hct (37-47) % MCHC (32.0-36.0) g/dL RDW Std Deviation (36.4-46.3) fL RDW Coeff of Vanessa (11.5-14.5) % Neut # (Auto) (1.40-6.50) K/uL Lymph # (Auto) (1.2-3.4) K/uL Absolute Nucleated RBC (0-0.12) K/uL PT (9.0-12.0) Seconds INR (0.9-1.1) APTT (21.0-31.0) Seconds POC pH (7.35-7.45) POC pCO2 (35-46) mmHg POC pO2 (80-95) mmHg POC HCO3 (19-24) erika/L POC Total CO2 (24-31) mmol/L POC Base Excess (-9-1.8) erika/L POC ABG O2 Sat (90-95) % POC Sodium (135-144) mmol/L Sodium (136-145) mmol/L POC Potassium (3.3-5.0) mmol/L Potassium (3.5-5.1) mmol/L Carbon Dioxide (21-32) mmol/L Anion Gap (3-11) BUN (6-23) mg/dl Creatinine (0.6-1.2) mg/dl Glucose (70-99(Fasting)) mg/dl POC Glucose 215 H 100 H (70-99) mg/dl Lactate (0.4-2.0) mmol/L Calcium (8.6-10.3) mg/dl Total Bilirubin (0.2-1.0) mg/dl Direct Bilirubin (0-0.2) mg/dl AST (13-39) U/L ALT (7-52) U/L Alkaline Phosphatase (34-104) U/L Total Creatine Kinase (26-192) U/L Troponin I High Sens (0-14) pg/ml B-Natriuretic Peptide 3791 H (0-100) pg/ml Total Protein (6.0-8.3) gm/dl Albumin (3.4-5.0) gm/dl Lipase (11-82) U/L Urine Appearance (Clear) Urine Protein (Negative) Urine Glucose (UA) (Negative) Urine Ketones (Negative) Urine Blood (Negative) Ur Leukocyte Esterase (Negative) Urine WBC (Auto) (0-5) /hpf U Hyaline Cast (Auto) (0-5) /lpf U Epithel Cells (Auto) (0-5) /lpf Urine Bacteria (Auto) (Negative) Acetaminophen (10-30) ug/ml 03/13/23 03/13/23 03/13/23 Range/Units 01:54 02:13 02:13 WBC (4.8-10.8) K/ul RBC (4.20-5.40) M/uL Hgb (12.0-16.0) g/dl POC Hgb (12.0-16.0) g/dl Hct (37.0-47.0) % POC Hct (37-47) % MCHC (32.0-36.0) g/dL RDW Std Deviation (36.4-46.3) fL RDW Coeff of Vanessa (11.5-14.5) % Neut # (Auto) (1.40-6.50) K/uL Lymph # (Auto) (1.2-3.4) K/uL Absolute Nucleated RBC (0-0.12) K/uL PT (9.0-12.0) Seconds INR (0.9-1.1) APTT (21.0-31.0) Seconds POC pH (7.35-7.45) POC pCO2 (35-46) mmHg POC pO2 (80-95) mmHg POC HCO3 (19-24) erika/L POC Total CO2 (24-31) mmol/L POC Base Excess (-9-1.8) erika/L POC ABG O2 Sat (90-95) % POC Sodium (135-144) mmol/L Sodium 130 L (136-145) mmol/L POC Potassium (3.3-5.0) mmol/L Potassium (3.5-5.1) mmol/L Carbon Dioxide 10 L (21-32) mmol/L Anion Gap 18 H (3-11) BUN 44 H (6-23) mg/dl Creatinine 2.20 H (0.6-1.2) mg/dl Glucose (70-99(Fasting)) mg/dl POC Glucose (70-99) mg/dl Lactate 13.8 H* (0.4-2.0) mmol/L Calcium 8.4 L (8.6-10.3) mg/dl Total Bilirubin 1.2 H (0.2-1.0) mg/dl Direct Bilirubin 0.6 H (0-0.2) mg/dl AST 9454 H (13-39) U/L ALT > 2500 H (7-52) U/L Alkaline Phosphatase 172 H (34-104) U/L Total Creatine Kinase 298 H (26-192) U/L Troponin I High Sens 44.1 H (0-14) pg/ml B-Natriuretic Peptide (0-100) pg/ml Total Protein 5.9 L (6.0-8.3) gm/dl Albumin 3.2 L (3.4-5.0) gm/dl Lipase 111 H (11-82) U/L Urine Appearance Turbid A (Clear) Urine Protein 2+ H (Negative) Urine Glucose (UA) 2+ H (Negative) Urine Ketones Trace H (Negative) Urine Blood 3+ H (Negative) Ur Leukocyte Esterase 1+ H (Negative) Urine WBC (Auto) 10-30 H (0-5) /hpf U Hyaline Cast (Auto) 5-10 H (0-5) /lpf U Epithel Cells (Auto) >30 H (0-5) /lpf Urine Bacteria (Auto) 4+ H (Negative) Acetaminophen (10-30) ug/ml Diagnostic Findings Abdomen/Pelvis CT 03/13/23 01:40 Exam(s): CT ABDOMEN + PELVIS With Contrast IV Amt: 93 ML OPTIRAY 320 EXAM: CT Abdomen and Pelvis With Intravenous Contrast CLINICAL HISTORY: Reason for exam: elevated lactate ?gut ischemia ?thrombus. TECHNIQUE: Axial computed tomography images of the abdomen and pelvis with intravenous contrast. CTDI is 24.88 mGy and DLP is 1166.77 mGy-cm. Automated exposure control was utilized for the study. A dose lowering technique was utilized adhering to the principles of ALARA. CONTRAST: Patient received 93 ML OPTIRAY 320 of IV contrast COMPARISON: No relevant prior studies available. FINDINGS: ABDOMEN: Liver: Hepatic steatosis. Gallbladder and bile ducts: Unremarkable. Pancreas: Unremarkable. Spleen: Unremarkable. Adrenals: Unremarkable. Kidneys and ureters: Atrophic left kidney. Chronic infarcts in the right kidney. Stomach and bowel: No pneumatosis or perforation at this time. No obstruction. No mucosal inflammation. PELVIS: Appendix: No findings to suggest acute appendicitis. Bladder: Full catheter in the bladder. Reproductive: Unremarkable as visualized. ABDOMEN and PELVIS: Intraperitoneal space: Unremarkable. No free air. No significant fluid collection. Bones/joints: See below. Soft tissues: Unremarkable. Vasculature: Occluded celiac artery and proximal SMA. There is some reconstitution of flow within the SMA. The GLENN also appears occluded. Status post aortobifemoral bypass. Lymph nodes: Unremarkable. 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 There is some reconstitution of flow within the SMA. The GLENN also appears occluded. The patient is certainly at risk of bowel ischemia. No pneumatosis or bowel perforation at this time. Electronically signed by: Mehdi Devine MD 03/13/23 04:39 AM Medications Administered Home Medications levothyroxine 25 mcg tablet 25 mcg PO Q OTHER DAY 07/17/19 [History Confirmed 02/06/23] ipratropium 20 mcg-albuterol 100 mcg/actuation mist for inhalation (Combivent Respimat) 1 puffs inhalation Q6H PRN cough, wheeze, shortness of breath #4 grams 11/10/19 [Rx Confirmed 02/06/23] fluticasone 250 mcg-salmeterol 50 mcg/dose blistr powdr for inhalation (Wixela Inhub) 1 inh inhalation BID 02/26/20 [History Confirmed 02/06/23] metoprolol succinate 25 mg tablet,extended release 24 hr (Toprol XL) 25 mg PO QAM #30 tabs 03/01/20 [Rx Confirmed 02/06/23] atorvastatin 80 mg tablet 80 mg PO QAM 12/02/22 [History Confirmed 02/06/23] cholecalciferol (vitamin D3) 25 mcg (1,000 unit) tablet (Vitamin D3) 25 mcg PO QAM 12/02/22 [History Confirmed 02/06/23] ferrous sulfate 325 mg (65 mg iron) tablet 325 mg PO QAM 12/02/22 [History Confirmed 02/06/23] sacubitril 49 mg-valsartan 51 mg tablet (Entresto) 1 tab PO BID 12/02/22 [History Confirmed 02/06/23] tiotropium bromide 18 mcg capsule with inhalation device (Spiriva with HandiHaler) 1 cap inhalation QAM 12/02/22 [History Confirmed 02/06/23] folic acid 1 mg tablet 2 mg PO QAM 12/24/22 [History Confirmed 02/06/23] apixaban 2.5 mg tablet (Eliquis) 2.5 mg PO BID #60 tabs 12/25/22 [Rx Confirmed 02/06/23] amiodarone 200 mg tablet 200 mg PO QAM 01/25/23 [History Confirmed 02/06/23] aspirin 81 mg capsule 81 mg PO QAM 01/25/23 [History Confirmed 02/06/23] clopidogrel 75 mg tablet (Plavix) 75 mg PO QAM 01/25/23 [History Confirmed 02/06/23] cyanocobalamin (vitamin B-12) 1,000 mcg capsule 1,000 mcg PO QAM 01/25/23 [History Confirmed 02/06/23] empagliflozin 10 mg tablet (Jardiance) 10 mg PO QAM 01/25/23 [History Confirmed 02/06/23] furosemide 20 mg tablet 20 mg PO QAM PRN Edema 01/25/23 [History Confirmed 02/06/23] lansoprazole 15 mg delayed release,disintegrating tablet 15 mg PO QAM 01/25/23 [History Confirmed 02/06/23] levothyroxine 50 mcg tablet 50 mcg PO Q2D 01/25/23 [History Confirmed 02/06/23] oxycodone-acetaminophen 5 mg-325 mg tablet (Percocet) 1 tab PO Q8H PRN pain #7 tabs 02/07/23 [Rx] Active Medications Heparin Sodium/Dextrose (Heparin Iv Adult Wt-Based Standard *No* Bolus Protocol) 1 each IV Q30M BRIJESH; Protocol Stop: 03/13/23 07:11 Last Admin: 03/13/23 04:57 Dose: 1 each Heparin Sodium/Dextrose (Heparin Sodium/Dextrose) 25,000 units in 500 mls @ 18 mls/hr IV .Q24H BRIJESH; Protocol Stop: 04/12/23 04:59 Miscellaneous Information (Vancomycin Consult Active) 1 each N/A UD PRN PRN Reason: Consult Stop: 04/12/23 00:59 ECG Additional Comments: none obtained Coding Level of Care Code 89484 CRITICAL CARE 1ST 30-74M Diagnoses Arterial occlusion I70.90 Acute liver failure K72.00 High anion gap metabolic acidosis E87.29 Shock R57.9 COPD (chronic obstructive pulmonary disease) J44.9 HFrEF (heart failure with reduced ejection fraction) I50.20 Paroxysmal atrial fibrillation with RVR I48.0
[2023-03-13] MEDS ORDERED: LORazepam 2 MG/1 ML VIAL IV STA (04:44)
--- NOTE | 2023-03-13 04:44 | History & Physical Report ---
Date of Service March 13, 2023 Assessment & Plan (1) Arterial occlusion: Plan: 82yo female with history of CVA, AF, COPD, HFrEF, CAD, aortofemoral bypass and AAA presenting with abdominal pain and SOB. Found to have laboratory evidence of acute liver failure with markedly elevated AST and ALT as well as hypoglycemia, elevated lactate and progressive confusion. Patient had a CT of the abdomen performed with IV contrast which revealed an occluded celiac artery and proximal SMA with some reconstitution as well as occluded GLENN. No pneumotosis or bowel perforation. As below, attempted to discuss option of transfer with surgical revascularization with patient who was too altered at the time. Family called and updated and agrees with comfort care which was previously voiced by patient earlier in the evening. Patient with multiple medical comorbidities including HFrEF. Acute liver failure as well as TAZ, impending bowel ischemia and overall worsening clinical status. Her prognosis is grave. This was clearly communicated to the family. They plan to come to the hospital this morning after its light out. -Admit to medical -Continue heparin gtt - possible comfort with treatment of clot burden, avoidance of ischemic bowel? -Morphine as needed for pain -Ativan as needed for anxiety -Zofran as needed for nausea (2) Acute liver failure: Plan: Likely secondary to ischemia vs medication induced from amiodarone, infection/viral. -Vitamin K 10mg x 1 -Awaiting Portal Venous doppler results (3) HFrEF (heart failure with reduced ejection fraction): Plan: No acute management Hold oral medications (4) Hypothyroid: Plan: No acute management Hold oral medications (5) CAD (coronary artery disease): Plan: No acute management Hold oral medications (6) HTN (hypertension): Plan: No acute management Hold oral medications (7) Diabetes mellitus, type 2: Plan: With hypoglycemia on arrival. Now improved. Likely secondary to acute liver failure -Monitor BSG Plan Patient asked multiple times by multiple providers if she wanted family to be contacted. She was adamant that we not contact her family members. We clearly explained to her the severity of her current medical condition and that this very well may be her terminal event. Again, she insisted that family not be contacted. During patient's time in the ER she became more altered and was unable to answer questions or voice her wishes. She was notified of her CT results, however, at the time the CT was resulted, patient's mental status had significantly declined. Briefly discussed the option of surgery which would require urgent transfer and an open superior renal re-vascularization. Patient was unable to voice understanding of her treatment options or answer questions. At that time, her , Jeanmarie, was contacted at [phone] and updated on his 's clinical course. He confirmed patient's DNR/DNI status and was in agreement with pursuing comfort measures. He did not wish to pursue transfer for possible surgery. Her son, Faiza was also updated at [phone] (OF NOTE, FAIZA'S NUMBER IS INCORRECT IN [email or web address]). Will proceed as above with admission to medical and comfort measures. Will continue heparin drip for possible added comfort. History of Present Illness Chief Complaint: constipation Primary Care Provider: Self, Referred Kp Azul is an 82yo female with history of CAD, COPD, CKD, DM, HFrEF (30%), PAF s/p pacer and CAD. Patient brought in by EMS from home with complaint of constipation and shortness of breath. Upon arrival patient was noted to have cyanotic fingertips and mottled extremities. She was in respiratory distress - visibly tachypneic, unable to speak in complete sentences or lay back. Her initial blood sugar was 19. She was administered 125mg Solumedrol IV, DuoNeb and D10 by EMS. Patient was placed on BiPAP in the ER due to acute hypoxic respiratory failure. She was unable to tolerate the mask - was pulling it off and became very agitated. BiPAP was removed and NC placed - improved saturations. Labs as below reveal markedly abnormal LFTs suggestive of hepatocellular injury with AST of 9454, ALT of >2500. Minimal elevation of AP to 172 and Tbili of 1.2. Elevated INR of 2.4. High anion gap metabolic acidosis with pH of 7.22 on VBG, HCO3 of 11, Lactate of 13.8. BUN=44 and Cr=2.2 Allergies Allergy/AdvReac Type Severity Reaction Status Date / Time azithromycin [From Zithromax] Allergy Severe Anaphylaxis Verified 02/06/23 06:02 Home Medications Medication Instructions Recorded Confirmed Type levothyroxine 25 mcg tablet 25 mcg PO Q OTHER DAY 07/17/19 02/06/23 History ipratropium 20 mcg-albuterol 100 1 puffs inhalation Q6H PRN cough, 11/10/1903/24 Rx mcg/actuation mist for inhalation wheeze, shortness of breath #4 (Combivent Respimat) grams fluticasone 250 mcg-salmeterol 50 1 inh inhalation BID 02/26/20 02/06/23 History mcg/dose blistr powdr for inhalation (Wixela Inhub) metoprolol succinate 25 mg 25 mg PO QAM #30 tabs 03/01/20 02/06/23 Rx tablet,extended release 24 hr (Toprol XL) atorvastatin 80 mg tablet 80 mg PO QAM 12/02/22 02/06/23 History cholecalciferol (vitamin D3) 25 25 mcg PO QAM 12/02/22 02/06/23 History mcg (1,000 unit) tablet (Vitamin D3) ferrous sulfate 325 mg (65 mg 325 mg PO QAM 12/02/22 02/06/23 History iron) tablet sacubitril 49 mg-valsartan 51 mg 1 tab PO BID 12/02/22 02/06/23 History tablet (Entresto) tiotropium bromide 18 mcg capsule 1 cap inhalation QAM 12/02/22 02/06/23 History with inhalation device (Spiriva with HandiHaler) folic acid 1 mg tablet 2 mg PO QAM 12/24/22 02/06/23 History apixaban 2.5 mg tablet (Eliquis) 2.5 mg PO BID #60 tabs 12/25/22 02/06/23 Rx amiodarone 200 mg tablet 200 mg PO QAM 01/25/23 02/06/23 History aspirin 81 mg capsule 81 mg PO QAM 01/25/23 02/06/23 History clopidogrel 75 mg tablet (Plavix) 75 mg PO QAM 01/25/23 02/06/23 History cyanocobalamin (vitamin B-12) 1,000 mcg PO QAM 01/25/23 02/06/23 History 1,000 mcg capsule empagliflozin 10 mg tablet 10 mg PO QAM 01/25/23 02/06/23 History (Jardiance) furosemide 20 mg tablet 20 mg PO QAM PRN Edema 01/25/23 02/06/23 History lansoprazole 15 mg delayed 15 mg PO QAM 01/25/23 02/06/23 History release,disintegrating tablet levothyroxine 50 mcg tablet 50 mcg PO Q2D 01/25/23 02/06/23 History oxycodone-acetaminophen 5 mg-325 1 tab PO Q8H PRN pain #7 tabs 02/07/23 Rx mg tablet (Percocet) Past Med/Surg History Medical History Biventricular cardiac pacemaker in situ follows with Dr. Carrington. last checked "not long ago" ~10/[address] Rivera[address] office. (pt recently switched providers) CAD (coronary artery disease) s/p NARCISO to LAD and Cx 2019 Carotid stenosis Chronic kidney disease stage 3 -- follows with Dr Pantoja COPD (chronic obstructive pulmonary disease) severe per [place] records Diabetes mellitus, type 2 NIDDM ANDRADE (dyspnea on exertion) Dysphagia HFrEF (heart failure with reduced ejection fraction) EF 25-30% 12/2022 echo History of placement of stent in LAD coronary artery (2019) 2019 at [facility] HTN (hypertension) Hyperlipidemia Hypothyroidism Left bundle branch block Mitral regurgitation Paroxysmal atrial fibrillation with RVR 12/2022 dx at [facility]. no cardioversion. Presence of stent in LAD coronary artery 2019 Presence of stent in left circumflex coronary artery (2019) 2019 at [facility] Pulmonary edema 12/2022 [facility] hospitalization STEMI (ST elevation myocardial infarction) 2019 Stenosis of left internal carotid artery Stroke left hemispheric (MCA territory ischemic) 12/09/22 received TNK, transferred to [facility] and thrombectomy cx d/t improvement in symptoms Subclavian artery stenosis Upper GI bleed pt denies Surgical History History of cardiac cath 2019 at [facility] History of colonoscopy History of heart artery stent total of 2 stents placed in 2019 S/P AAA repair 08/2015 at [facility] [place] S/P placement of cardiac pacemaker 2019 at [facility] -- unsure of exact reason for pacemaker Family History Other Hypertension No family history of adverse response to anesthesia Social History Smoking Status: Never smoker Tobacco Type: Cigarettes Cigarettes Per Day: 10-20 a day; Second Hand Exposure: Yes; Do You Dip or Chew Tobacco: No; Hx Alcohol Use: Yes Alcohol type: wine Hx Substance Use: No Preferred Language: Swedish Communication Ability: Effective X Ray Developer Required: No Beliefs That Will Affect Care: None marital status: Current Living Situation: Spouse How many Children do You have: 2 Feels Safe at Home: Yes Assistive Devices: None Review of Systems Review of Systems: All systems reviewed & are unremarkable except as noted in HPI & below Physical Exam Physical Exam: General: patient acutely ill in appearance, in distress Skin: cool extremities with mottling noted of bilateral knees, toes, arms and fingertips HEENT: NC/AT, PERRL, EOMI, anicteric sclera, conjunctiva without injection, external ear normal to inspection and nontender, nares patent, moist mucus membranes, dentures in place, no oropharyngeal lesions, neck supple, trachea midline, no LAD, no thyromegaly, no JVD Heart: +S1/S2, regular, no m/r/g, pacer in place Lungs: visibly tachypneic, coarse breath sounds bilaterally with moist sounding cough Abd: diminished bowel sounds, soft, mildly distended and tympanic on percussion, no organomegaly, no tenderness with palpation of the liver or abdomen, no ascites Ext: cool, 1+ palpable pulses, no edema Neuro: grossly nonfocal, patient moving all extremities with equal strength, oriented x 3, answering questions appropriately Results & Data Results & Data Vital Signs (Past 12 Hours) Vital Signs Temp Pulse Resp BP BP Pulse Ox O2 Del Method 03/13/23 04:13 110/80 03/13/23 03:34 13 03/13/23 02:45 62 24 100 03/13/23 02:30 60 24 100 03/13/23 02:15 18 100 03/13/23 02:00 109/42 L 03/13/23 03:36 64 03/13/23 02:00 62 25 H 95 Nasal Cannula 03/13/23 01:45 64 26 H 100 03/13/23 01:30 60 25 H 100 03/13/23 01:30 134/64 03/13/23 01:15 61 25 H 99 03/13/23 01:01 59 L 21 90 03/13/23 01:01 110/54 L 03/13/23 01:00 59 L 23 99 03/13/23 00:45 60 27 H 100 03/13/23 00:35 63 24 100 03/13/23 00:35 103/56 L 03/13/23 00:30 71 22 103/56 L 92 03/13/23 00:15 63 23 78 L 03/13/23 00:05 110/59 L 03/13/23 00:05 67 26 H 100 03/13/23 00:00 61 24 100 03/12/23 23:45 60 25 H 100 BiPAP 03/12/23 23:39 64 24 100 03/12/23 23:41 BiPAP 03/12/23 23:16 Non-rebreather 03/12/23 23:16 Non-rebreather 03/12/23 23:16 36.8 C 66 30 H 110/59 L 97 Non-rebreather 03/12/23 23:16 Non-rebreather 03/12/23 23:55 29 H 100 03/12/23 23:39 70 O2 Flow Rate FiO2 03/13/23 04:13 03/13/23 03:34 03/13/23 02:45 03/13/23 02:30 03/13/23 02:15 03/13/23 02:00 03/13/23 03:36 03/13/23 02:00 3 03/13/23 01:45 03/13/23 01:30 03/13/23 01:30 03/13/23 01:15 03/13/23 01:01 03/13/23 01:01 03/13/23 01:00 03/13/23 00:45 03/13/23 00:35 03/13/23 00:35 03/13/23 00:30 03/13/23 00:15 03/13/23 00:05 03/13/23 00:05 03/13/23 00:00 03/12/23 23:45 03/12/23 23:39 03/12/23 23:41 03/12/23 23:16 03/12/23 23:16 03/12/23 23:16 03/12/23 23:16 15 03/12/23 23:55 30 03/12/23 23:39 Laboratory Results Laboratory Results WBC 15.44 K/ul (4.8-10.8) H 03/13/23 00:03 RBC 2.65 M/uL (4.20-5.40) L 03/13/23 00:03 Hgb 7.3 g/dl (12.0-16.0) L 03/13/23 00:03 POC Hgb 8.5 g/dl (12.0-16.0) L 03/12/23 23:53 Hct 24.4 % (37.0-47.0) L 03/13/23 00:03 POC Hct 25 % (37-47) L 03/12/23 23:53 MCV 92.1 fL (80.0-100.0) 03/13/23 00:03 MCH 27.5 pg (25.0-34.0) 03/13/23 00:03 MCHC 29.9 g/dL (32.0-36.0) L 03/13/23 00:03 RDW Std Deviation 62.8 fL (36.4-46.3) H 03/13/23 00:03 RDW Coeff of Vanessa 18.6 % (11.5-14.5) H 03/13/23 00:03 Plt Count 251 K/uL (130-400) 03/13/23 00:03 MPV 11.7 fL (9.4-12.4) 03/13/23 00:03 Immature Gran % (Auto) 0.5 % 03/13/23 00:03 Neut % (Auto) 94.3 % 03/13/23 00:03 Lymph % (Auto) 2.8 % 03/13/23 00:03 Jenkins % (Auto) 2.3 % 03/13/23 00:03 Eos % (Auto) 0.0 % 03/13/23 00:03 Baso % (Auto) 0.1 % 03/13/23 00:03 Neut # (Auto) 14.56 K/uL (1.40-6.50) H 03/13/23 00:03 Lymph # (Auto) 0.44 K/uL (1.2-3.4) L 03/13/23 00:03 Jenkins # (Auto) 0.35 K/uL (0.11-0.59) 03/13/23 00:03 Eos # (Auto) 0.00 K/uL (0-0.50) 03/13/23 00:03 Baso # (Auto) 0.02 K/uL (0-0.2) 03/13/23 00:03 Immature Gran # (Auto) 0.07 K/uL (0.01-0.20) 03/13/23 00:03 Absolute Nucleated RBC 0.33 K/uL (0-0.12) H 03/13/23 00:03 Nucleated RBC % (auto) 2.1 % 03/13/23 00:03 Hypochromasia Present 03/13/23 00:03 Echinocytes 2+ 03/13/23 00:03 PT 25.2 Seconds (9.0-12.0) H 03/13/23 00:03 INR 2.4 (0.9-1.1) H 03/13/23 00:03 Fibrinogen 212 mg/dl (184-400) 03/13/23 00:03 POC pH 7.22 (7.35-7.45) L 03/12/23 23:53 POC pCO2 17 mmHg (35-46) L 03/12/23 23:53 POC pO2 200 mmHg (80-95) H 03/12/23 23:53 POC HCO3 7 erika/L (19-24) L 03/12/23 23:53 POC Total CO2 7 mmol/L (24-31) L* 03/12/23 23:53 POC Base Excess -21.0 erika/L (-9-1.8) L 03/12/23 23:53 POC ABG O2 Sat 100.0 % (90-95) H 03/12/23 23:53 POC Sodium 129 mmol/L (135-144) L 03/12/23 23:53 Sodium 130 mmol/L (136-145) L 03/13/23 02:13 POC Potassium 5.2 mmol/L (3.3-5.0) H 03/12/23 23:53 Potassium 4.9 mmol/L (3.5-5.1) 03/13/23 02:13 Chloride 102 mmol/L (98-107) 03/13/23 02:13 Carbon Dioxide 10 mmol/L (21-32) L 03/13/23 02:13 Anion Gap 18 (3-11) H 03/13/23 02:13 BUN 44 mg/dl (6-23) H 03/13/23 02:13 Creatinine 2.20 mg/dl (0.6-1.2) H 03/13/23 02:13 Est Cr Clr Drug Dosing 16.1 ml/min 03/13/23 02:13 Est GFR ( Amer) 23.8 ml/min 03/13/23 02:13 Est GFR (Non-Af Amer) 20.5 ml/min 03/13/23 02:13 BUN/Creatinine Ratio 20.0 (10-20) 03/13/23 02:13 Glucose 77 mg/dl (70-99(Fasting)) 03/13/23 02:13 POC Glucose 100 mg/dl (70-99) H 03/13/23 01:23 Osmolality 291 mOsm/kg (280-300) 03/13/23 02:13 Lactate 13.8 mmol/L (0.4-2.0) H* 03/13/23 02:13 Calcium 8.4 mg/dl (8.6-10.3) L 03/13/23 02:13 Magnesium 2.1 mg/dl (1.7-2.4) 03/13/23 00:03 Total Bilirubin 1.2 mg/dl (0.2-1.0) H 03/13/23 02:13 Direct Bilirubin 0.6 mg/dl (0-0.2) H 03/13/23 02:13 AST 9454 U/L (13-39) H 03/13/23 02:13 ALT > 2500 U/L (7-52) H 03/13/23 02:13 Alkaline Phosphatase 172 U/L (34-104) H 03/13/23 02:13 Total Creatine Kinase 298 U/L (26-192) H 03/13/23 02:13 Troponin I High Sens 44.1 pg/ml (0-14) H 03/13/23 02:13 B-Natriuretic Peptide 3791 pg/ml (0-100) H 03/13/23 01:22 Total Protein 5.9 gm/dl (6.0-8.3) L 03/13/23 02:13 Albumin 3.2 gm/dl (3.4-5.0) L 03/13/23 02:13 Lipase 111 U/L (11-82) H 03/13/23 02:13 Procalcitonin 0.44 ng/ml (0-0.5) 03/13/23 00:03 Urine Color Dark Yellow 03/13/23 01:54 Urine Appearance Turbid (Clear) A 03/13/23 01:54 Urine pH 5.5 (4.5-7.5) 03/13/23 01:54 Ur Specific [place] 1.019 (1.000-1.030) 03/13/23 01:54 Urine Protein 2+ (Negative) H 03/13/23 01:54 Urine Glucose (UA) 2+ (Negative) H 03/13/23 01:54 Urine Ketones Trace (Negative) H 03/13/23 01:54 Urine Blood 3+ (Negative) H 03/13/23 01:54 Urine Nitrite Negative (Negative) 03/13/23 01:54 Urine Bilirubin Negative (Negative) 03/13/23 01:54 Urine Urobilinogen Negative (Negative) 03/13/23 01:54 Ur Leukocyte Esterase 1+ (Negative) H 03/13/23 01:54 Urine WBC (Auto) 10-30 /hpf (0-5) H 03/13/23 01:54 Urine RBC (Auto) 0-4 /hpf (0-4) 03/13/23 01:54 U Hyaline Cast (Auto) 5-10 /lpf (0-5) H 03/13/23 01:54 U Epithel Cells (Auto) >30 /lpf (0-5) H 03/13/23 01:54 Urine Bacteria (Auto) 4+ (Negative) H 03/13/23 01:54 Urine Opiates Screen Neg (Neg) 03/13/23 01:54 Ur Methadone, Qual Neg (Neg) 03/13/23 01:54 Acetaminophen < 3 ug/ml (10-30) L 03/13/23 00:03 Urine Barbiturates Neg (Neg) 03/13/23 01:54 Ur Phencyclidine (PCP) Neg (Neg) 03/13/23 01:54 U Amphetamin/Meth Scrn Neg (Neg) 03/13/23 01:54 MDMA (Ecstasy) Screen Neg (Neg) 03/13/23 01:54 U Benzodiazepines Scrn Neg (Neg) 03/13/23 01:54 Ur Cocaine Metabolite Neg (Neg) 03/13/23 01:54 U Marijuana (THC) Screen Neg (Neg) 03/13/23 01:54 Ethyl Alcohol mg/dL < 10.0 mg/dl (<10.0) 03/13/23 02:13 SARS-CoV-2 (PCR) NEGATIVE (Negative) 03/13/23 00:24 Influenza Type A (PCR) Negative (Neg) 03/13/23 00:24 Influenza Type B (PCR) Negative (Neg) 03/13/23 00:24 RSV (RT-PCR) Negative (Neg) 03/13/23 00:24 Impressions Abdomen/Pelvis CT 03/13/23 01:40 Exam(s): CT ABDOMEN + PELVIS With Contrast IV Amt: 93 ML OPTIRAY 320 EXAM: CT Abdomen and Pelvis With Intravenous Contrast CLINICAL HISTORY: Reason for exam: elevated lactate ?gut ischemia ?thrombus. TECHNIQUE: Axial computed tomography images of the abdomen and pelvis with intravenous contrast. CTDI is 24.88 mGy and DLP is 1166.77 mGy-cm. Automated exposure control was utilized for the study. A dose lowering technique was utilized adhering to the principles of ALARA. CONTRAST: Patient received 93 ML OPTIRAY 320 of IV contrast COMPARISON: No relevant prior studies available. FINDINGS: ABDOMEN: Liver: Hepatic steatosis. Gallbladder and bile ducts: Unremarkable. Pancreas: Unremarkable. Spleen: Unremarkable. Adrenals: Unremarkable. Kidneys and ureters: Atrophic left kidney. Chronic infarcts in the right kidney. Stomach and bowel: No pneumatosis or perforation at this time. No obstruction. No mucosal inflammation. PELVIS: Appendix: No findings to suggest acute appendicitis. Bladder: Full catheter in the bladder. Reproductive: Unremarkable as visualized. ABDOMEN and PELVIS: Intraperitoneal space: Unremarkable. No free air. No significant fluid collection. Bones/joints: See below. Soft tissues: Unremarkable. Vasculature: Occluded celiac artery and proximal SMA. There is some reconstitution of flow within the SMA. The GLENN also appears occluded. Status post aortobifemoral bypass. Lymph nodes: Unremarkable. 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 There is some reconstitution of flow within the SMA. The GLENN also appears occluded. The patient is certainly at risk of bowel ischemia. No pneumatosis or bowel perforation at this time. Electronically signed by: Mehdi Devine MD 03/13/23 04:39 AM PG Care Time/CCT Total # of Minutes Spent Total Time Spent with Patient: Total time spent is greater than 50% in coordination of care (as documented) at patient's floor/unit and/or counseling patient: Coding Level of Care Code 57856 INT INP/OBS CARE 375MIN Diagnoses Arterial occlusion I70.90 Acute liver failure K72.00 HFrEF (heart failure with reduced ejection fraction) I50.20 Hypothyroid E03.9 CAD (coronary artery disease) I25.10 Associated angina: without angina Coronary Disease-Associated Artery/Lesion type: [place] artery [place] vs. transplanted heart: [place] heart HTN (hypertension) I10 Hypertension type: essential hypertension Diabetes mellitus, type 2 E11.9 (5) CAD (coronary artery disease) Associated angina: without angina Coronary Disease-Associated Artery/Lesion type: [place] artery [place] vs. transplanted heart: [place] heart Qualified Code(s): I25.10 - Atherosclerotic heart disease of [place] coronary artery without angina pectoris (6) HTN (hypertension) Hypertension type: essential hypertension Qualified Code(s): I10 - Essential (primary) hypertension
[2023-03-13] MEDS ORDERED: HEPARIN SODIUM/DEXTROSE 25,000 UNITS/500 ML BAG IV SCH (05:00)
[2023-03-13 05:15] LABS: Partial Thromboplastin Ratio 1.3; Partial Thromboplastin Time 36.2 Seconds (21.0-31.0)
--- NOTE | 2023-03-13 06:04 | Ultrasound Report ---
Exam(s): US OTHER EXAM: US DUPLEX OF THE LIVER CLINICAL HISTORY: Reason for exam: acute liver failure, eval thrombus and est PV pres. TECHNIQUE: Real-time duplex ultrasound scan of the liver was obtained. COMPARISON: No relevant prior studies available. FINDINGS/IMPRESSION: 1. Biphasic flow within the main portal vein which can be seen with portal hypertension. The left portal vein appears to show hepatopetal flow. 2. The hepatic veins show normal direction of flow. 3. No other veins identified. Electronically signed by: Zak Chávez MD 03/13/23 06:03 AM
--- NOTE | 2023-03-13 07:20 | XRay Report ---
XR chest 1V portable HISTORY: Sepsis COMPARISON: Chest 02/06/2023. FINDINGS: No pneumothorax. No pleural effusions. The cardiac silhouette remains mildly enlarged. Ther e is a left-sided pacemaker/defibrillator again noted. Slightly rotated study. There is mild pulmonar y vascular congestion without overt edema. This has improved in the interval. No acute fractures iden tified. Bibasilar densities have improved. IMPRESSION: 1. Cardiomegaly with mild pulmonary vascular congestion. 2. Bibasilar densities have improved. ACT 112: Negative or not required by law. Electronically signed by: Jarocho Vazquez M.D. 03/13/2023 7:19 AM
--- NOTE | 2023-03-13 07:55 | Emergency Department Note ---
Impression & Plan Acute liver failure, Hypoglycemia, Occlusion of celiac artery Admit to the [facility] ED Provider Note NAME: BREONNA BRITO AGE: 82 SEX: F ARRIVES VIA: Ambulance INFORMANT: Patient ED PROVIDER(S): Mandy Vann DO CHIEF COMPLAINT: Abdominal pain and shortness of breath PLAN: Disposition: Admit to the [facility] Condition: Critical MEDICAL DECISION MAKING: This is an 82-year-old female patient who presents to the emergency department with constipation and shortness of breath. Patient presented significantly hypoglycemic with a blood sugar of 12. She was given D10 which brought her blood sugar up greater than 280. The patient showed signs of sepsis and was treated with IV cefepime and IV vancomycin. She presented with severe abdominal pain and a lactate greater than 12. CT scan of the abdomen/pelvis showed evidence of occlusion of the celiac artery and SMA. Laboratory studies confirmed evidence of acute liver failure. Both myself and Dr. Mcdonald explained treatment options to the patient. We also urged the patient on multiple occasions to contact both her and adult children and she declined. The patient remained in critical condition. Patient was evaluated by critical care medicine and further inpatient care will be determined by the [facility]. Triage Nursing notes reviewed and agree with them. Additional history obtained from EMS Multiple external medical records reviewed including previous admissions Vital Signs: reviewed and remarkable for tachycardia and hypoxia Differential diagnosis: Bowel obstruction, ischemic bowel, sepsis, COPD exacerbation, CHF, renal failure, liver failure ER treatment provided: pneumatic tester Twelve-lead EKG IV D10 IV normal saline bolus IV cefepime IV vancomycin IV Ativan Diagnostics interpreted by me: ECG: AV paced rhythm at 70 with no obvious signs of ischemia Cardiac Monitoring: Cardiac paced rhythm at 68 Laboratory studies: See below Imaging studies: As per my independent interpretation Portable chest x-ray: Cardiomegaly with pulmonary vascular congestion HPI: 82/F arrives for evaluation of abdominal pain and shortness of breath. Patient presents emergency department from home with complaints of worsening abdominal pain. She believes that she is constipated. Patient appears quite short of breath on exam but states that this is going on for a couple of weeks. She has a history of COPD. EMS had administered 125 mg of IV Solu-Medrol and a DuoNeb treatment. She has been using her inhalers more frequently. PAST MEDICAL HISTORY:See Below PAST SURGICAL HISTORY:See Below FAMILY HISTORY:See Below SOCIAL HISTORY:See Below HOME MEDICATIONS:See list ALLERGIES:Zithromax VITALS:See Below PHYSICAL EXAMINATION: HEENT: Head - normocephalic and atraumatic. Pupils are equal, round, and reactive to light. Extraocular eye muscles are intact, and sclera are anicteric . Nose - moist nasal mucosa without discharge. Mouth -dry buccal mucosa. Oropharynx is nonerythematous and there is no tonsillar exudate or edema noted. Neck: Supple; no JVD, nuchal rigidity or cervical lymphadenopathy Heart: Bradycardic rate and rhythm. There is a normal S1 and S2 with no murm urs, clicks, or gallops appreciated. Lungs: Rhonchi and rales heard throughout all lung donald. Abdomen: Significantly distended abdomen which is diffusely tender to palpation. There were absent bowel sounds. There is no guarding or rebound appreciated. Extremities: No evidence of cyanosis, clubbing, or edema. There are easily palpable peripheral pulses. Skin: Pale, cool and dry with poor turgor and no rashes. The patient's feet are mottled. ED COURSE: Times/Reassessments: 0035: The patient was evaluated in room B-11. A complete history and physical was performed. EMS noted a blood sugar less than 20. Nursing staff confirmed an blood sugar of 12. Patient was receiving IV D10 from EMS. This was continued. Portable chest x-ray was performed. A twelve-lead EKG was obtained. An order was placed for continuous cardiac monitoring. The patient was in a paced rhythm at a rate of 68. Nursing staff worked at establishing an IV lock. ABG was obtained which revealed a pH of 7.2, PCO2 of 16, bicarb of 6.7 and a PO2 of 200. Laboratory studies revealed an anion gap. This was concerning for an anion gap acidosis. The patient was placed on BiPAP by respiratory therapy. Patient was bolused with 500 cc of normal saline solution. I had an initial conversation with the patient about her wishes. She declined endotracheal intubation and does not want CPR or any type of resuscitation. I suggested that we contact her or her adult children who live in town but she refused. Patient was ordered to have IV cefepime and then IV vancomycin for evidence of sepsis with a lactate greater than 12. Nursing staff were working on IV placement. I discussed the case with the [facility] Hospitalist who had ordered CT scan of the abdomen/pelvis during the patient's significant abdominal pain. We, once again, had another conversation with the patient about her wishes for resuscitation. She was becoming more anxious and agitated. She was completely oriented to the situation. Dr. Mcdonald and I explained the severity of the situation. We thoroughly explained options of care and resuscitation. Patient was given a dose of IV Ativan for her anxiety. I have personally spent greater than 90 minutes of critical care time in the direct management of this patient. This includes bedside care, interpretation of diagnostic studies, and testing, discussion with consultants, patient, and family members, and other required patient management activities. This 90minutes is in excess of all separately billable procedures. Mandy Vann, DO Past Med/Surg History Medical History Biventricular cardiac pacemaker in situ follows with Dr. Carrington. last checked "not long ago" ~10/[address] Rivera[address] office. (pt recently switched providers) CAD (coronary artery disease) s/p NARCISO to LAD and Cx 2018 Carotid stenosis Chronic kidney disease stage 3 -- follows with Dr Pantoja COPD (chronic obstructive pulmonary disease) severe per [place] records Diabetes mellitus, type 2 NIDDM ANDRADE (dyspnea on exertion) Dysphagia HFrEF (heart failure with reduced ejection fraction) EF 25-30% 12/2022 echo History of placement of stent in LAD coronary artery (2018) 2018 at [facility] HTN (hypertension) Hyperlipidemia Hypothyroidism Left bundle branch block Mitral regurgitation Paroxysmal atrial fibrillation with RVR 12/2022 dx at [facility]. no cardioversion. 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) 12/09/22 received TNK, transferred to [facility] and thrombectomy cx d/t improvement in symptoms Subclavian artery stenosis Upper GI bleed pt denies Surgical History History of cardiac cath 2019 at [facility] History of colonoscopy History of heart artery stent total of 2 stents placed in 2019 S/P AAA repair 08/2015 at [facility] [place] S/P placement of cardiac pacemaker 2019 at [facility] -- unsure of exact reason for pacemaker Family History Other Hypertension No family history of adverse response to anesthesia Social History Smoking Status: Never smoker Tobacco Type: Cigarettes Cigarettes Per Day: 10-20 a day; Second Hand Exposure: Yes; Do You Dip or Chew Tobacco: No; Hx Alcohol Use: Yes Alcohol type: wine Hx Substance Use: No Preferred Language: Bulgarian Communication Ability: Effective Adult Daycare Coordinator Required: No Beliefs That Will Affect Care: None marital status: Current Living Situation: Spouse How many Children do You have: 2 Feels Safe at Home: Yes Assistive Devices: None Allergies Allergies Allergy/AdvReac Type Severity Reaction Status Date / Time azithromycin [From Zithromax] Allergy Severe Anaphylaxis Verified 02/06/23 06:02 Home Meds Home Medications Medication Instructions Recorded Confirmed levothyroxine 25 mcg tablet 25 mcg PO Q OTHER DAY 07/17/19 03/13/23 fluticasone 250 mcg-salmeterol 50 1 inh inhalation BID 02/26/20 03/13/23 mcg/dose blistr powdr for inhalation (Wixela Inhub) atorvastatin 80 mg tablet 80 mg PO QAM 12/02/22 02/06/23 cholecalciferol (vitamin D3) 25 25 mcg PO QAM 12/02/22 03/13/23 mcg (1,000 unit) tablet (Vitamin D3) ferrous sulfate 325 mg (65 mg 325 mg PO QAM 12/02/22 03/13/23 iron) tablet sacubitril 49 mg-valsartan 51 mg 1 tab PO BID 12/02/22 02/06/23 tablet (Entresto) tiotropium bromide 18 mcg capsule 1 cap inhalation QAM 12/02/22 03/13/23 with inhalation device (Spiriva with HandiHaler) folic acid 1 mg tablet 2 mg PO QAM 12/24/22 03/13/23 amiodarone 200 mg tablet 200 mg PO QAM 01/25/23 03/13/23 aspirin 81 mg capsule 81 mg PO QAM 01/25/23 03/13/23 clopidogrel 75 mg tablet (Plavix) 75 mg PO QAM 01/25/23 03/13/23 cyanocobalamin (vitamin B-12) 1,000 mcg PO QAM 01/25/23 03/13/23 1,000 mcg capsule empagliflozin 10 mg tablet 10 mg PO QAM 01/25/23 03/13/23 (Jardiance) furosemide 20 mg tablet 20 mg PO QAM PRN Edema 01/25/23 03/13/23 lansoprazole 15 mg delayed 15 mg PO QAM 01/25/23 03/13/23 release,disintegrating tablet levothyroxine 50 mcg tablet 50 mcg PO Q2D 01/25/23 03/13/23 Previous Rx's Medication Instructions Recorded ipratropium 20 mcg-albuterol 100 1 puffs inhalation Q6H PRN cough, 11/10/19 mcg/actuation mist for inhalation wheeze, shortness of breath #4 (Combivent Respimat) grams metoprolol succinate 25 mg 25 mg PO QAM #30 tabs 03/01/20 tablet,extended release 24 hr (Toprol XL) apixaban 2.5 mg tablet (Eliquis) 2.5 mg PO BID #60 tabs 12/25/22 oxycodone-acetaminophen 5 mg-325 1 tab PO Q8H PRN pain #7 tabs 02/07/23 mg tablet (Percocet) Results & Data (ED) Vital Signs Vital Signs - 24 hr 03/12/23 23:39 03/12/23 23:55 03/12/23 23:16 Temperature Temperature Source Pulse Rate 70 Pulse Rate from SpO2 Sensor Respiratory Rate 29 H Respiratory Effort / Characteristics Spontaneous Accessory Muscle Use Labored Tripoding Respiratory Depth Respiratory Pattern Tachypnea Tachypnea Blood Pressure Blood Pressure [Left Arm] Blood Pressure Mean Blood Pressure Mean [Left Arm] Pulse Oximetry 100 Oxygen Delivery Method Non-rebreather Oxygen Flow Rate 15 Fraction of Inspired Oxygen 30 Sepsis Recent Fever Within 48 Hours Sepsis New/Unexplained Change in Mental Status Sepsis Action Taken by Nursing 03/12/23 23:16 03/12/23 23:16 03/12/23 23:16 Temperature 36.8 C Temperature Source Axillary Pulse Rate 66 Pulse Rate from SpO2 Sensor Respiratory Rate 30 H Respiratory Effort / Characteristics Non-Labored Respiratory Depth Normal Respiratory Pattern Blood Pressure 110/59 L Blood Pressure [Left Arm] Blood Pressure Mean 76 Blood Pressure Mean [Left Arm] Pulse Oximetry 97 Oxygen Delivery Method Non-rebreather Non-rebreather Non-rebreather Oxygen Flow Rate Fraction of Inspired Oxygen Sepsis Recent Fever Within 48 Hours No Sepsis New/Unexplained Change in Mental Status No Sepsis Action Taken by Nursing No Action Required 03/12/23 23:41 03/12/23 23:39 03/12/23 23:45 Temperature Temperature Source Pulse Rate 64 60 Pulse Rate from SpO2 Sensor 64 60 Respiratory Rate 24 25 H Respiratory Effort / Characteristics Respiratory Depth Respiratory Pattern Blood Pressure Blood Pressure [Left Arm] Blood Pressure Mean Blood Pressure Mean [Left Arm] Pulse Oximetry 100 100 Oxygen Delivery Method BiPAP BiPAP Oxygen Flow Rate Fraction of Inspired Oxygen Sepsis Recent Fever Within 48 Hours Sepsis New/Unexplained Change in Mental Status Sepsis Action Taken by Nursing 03/13/23 00:00 03/13/23 00:05 03/13/23 00:05 Temperature Temperature Source Pulse Rate 61 67 Pulse Rate from SpO2 Sensor 61 66 Respiratory Rate 24 26 H Respiratory Effort / Characteristics Respiratory Depth Respiratory Pattern Blood Pressure 110/59 L Blood Pressure [Left Arm] Blood Pressure Mean 72 Blood Pressure Mean [Left Arm] Pulse Oximetry 100 100 Oxygen Delivery Method Oxygen Flow Rate Fraction of Inspired Oxygen Sepsis Recent Fever Within 48 Hours Sepsis New/Unexplained Change in Mental Status Sepsis Action Taken by Nursing 03/13/23 00:15 03/13/23 00:30 03/13/23 00:35 Temperature Temperature Source Pulse Rate 63 71 Pulse Rate from SpO2 Sensor 66 68 Respiratory Rate 23 22 Respiratory Effort / Characteristics Respiratory Depth Respiratory Pattern Blood Pressure 103/56 L 103/56 L Blood Pressure [Left Arm] Blood Pressure Mean 71 68 Blood Pressure Mean [Left Arm] Pulse Oximetry 78 L 92 Oxygen Delivery Method Oxygen Flow Rate Fraction of Inspired Oxygen Sepsis Recent Fever Within 48 Hours Sepsis New/Unexplained Change in Mental Status Sepsis Action Taken by Nursing 03/13/23 00:35 03/13/23 00:45 03/13/23 01:00 Temperature Temperature Source Pulse Rate 63 60 59 L Pulse Rate from SpO2 Sensor 63 61 59 L Respiratory Rate 24 27 H 23 Respiratory Effort / Characteristics Respiratory Depth Respiratory Pattern Blood Pressure Blood Pressure [Left Arm] Blood Pressure Mean Blood Pressure Mean [Left Arm] Pulse Oximetry 100 100 99 Oxygen Delivery Method Oxygen Flow Rate Fraction of Inspired Oxygen Sepsis Recent Fever Within 48 Hours Sepsis New/Unexplained Change in Mental Status Sepsis Action Taken by Nursing 03/13/23 01:01 03/13/23 01:01 03/13/23 01:15 Temperature Temperature Source Pulse Rate 59 L 61 Pulse Rate from SpO2 Sensor 62 61 Respiratory Rate 21 25 H Respiratory Effort / Characteristics Respiratory Depth Respiratory Pattern Blood Pressure 110/54 L Blood Pressure [Left Arm] Blood Pressure Mean 72 Blood Pressure Mean [Left Arm] Pulse Oximetry 90 99 Oxygen Delivery Method Oxygen Flow Rate Fraction of Inspired Oxygen Sepsis Recent Fever Within 48 Hours Sepsis New/Unexplained Change in Mental Status Sepsis Action Taken by Nursing 03/13/23 01:30 03/13/23 01:30 03/13/23 01:45 Temperature Temperature Source Pulse Rate 60 64 Pulse Rate from SpO2 Sensor 59 L 64 Respiratory Rate 25 H 26 H Respiratory Effort / Characteristics Respiratory Depth Respiratory Pattern Blood Pressure 134/64 Blood Pressure [Left Arm] Blood Pressure Mean 88 Blood Pressure Mean [Left Arm] Pulse Oximetry 100 100 Oxygen Delivery Method Oxygen Flow Rate Fraction of Inspired Oxygen Sepsis Recent Fever Within 48 Hours Sepsis New/Unexplained Change in Mental Status Sepsis Action Taken by Nursing 03/13/23 02:00 03/13/23 03:36 03/13/23 02:00 Temperature Temperature Source Pulse Rate 62 64 Pulse Rate from SpO2 Sensor 62 Respiratory Rate 25 H Respiratory Effort / Characteristics Respiratory Depth Respiratory Pattern Blood Pressure 109/42 L Blood Pressure [Left Arm] Blood Pressure Mean 67 Blood Pressure Mean [Left Arm] Pulse Oximetry 95 Oxygen Delivery Method Nasal Cannula Oxygen Flow Rate 3 Fraction of Inspired Oxygen Sepsis Recent Fever Within 48 Hours Sepsis New/Unexplained Change in Mental Status Sepsis Action Taken by Nursing 03/13/23 02:15 03/13/23 02:30 03/13/23 02:45 Temperature Temperature Source Pulse Rate 60 62 Pulse Rate from SpO2 Sensor 60 60 62 Respiratory Rate 18 24 24 Respiratory Effort / Characteristics Respiratory Depth Respiratory Pattern Blood Pressure Blood Pressure [Left Arm] Blood Pressure Mean Blood Pressure Mean [Left Arm] Pulse Oximetry 100 100 100 Oxygen Delivery Method Oxygen Flow Rate Fraction of Inspired Oxygen Sepsis Recent Fever Within 48 Hours Sepsis New/Unexplained Change in Mental Status Sepsis Action Taken by Nursing 03/13/23 03:34 03/13/23 04:13 03/13/23 03:45 Temperature Temperature Source Pulse Rate 63 Pulse Rate from SpO2 Sensor 64 Respiratory Rate 13 16 Respiratory Effort / Characteristics Respiratory Depth Respiratory Pattern Blood Pressure Blood Pressure [Left Arm] 110/80 Blood Pressure Mean Blood Pressure Mean [Left Arm] 90 Pulse Oximetry 96 Oxygen Delivery Method Oxygen Flow Rate Fraction of Inspired Oxygen Sepsis Recent Fever Within 48 Hours Sepsis New/Unexplained Change in Mental Status Sepsis Action Taken by Nursing 03/13/23 04:00 03/13/23 04:15 Temperature Temperature Source Pulse Rate 67 62 Pulse Rate from SpO2 Sensor 62 60 Respiratory Rate 21 17 Respiratory Effort / Characteristics Respiratory Depth Respiratory Pattern Blood Pressure Blood Pressure [Left Arm] Blood Pressure Mean Blood Pressure Mean [Left Arm] Pulse Oximetry 100 100 Oxygen Delivery Method Oxygen Flow Rate Fraction of Inspired Oxygen Sepsis Recent Fever Within 48 Hours Sepsis New/Unexplained Change in Mental Status Sepsis Action Taken by Nursing Laboratory Data 03/13/23 00:03 03/13/23 02:13 Lab Results 03/12/23 03/12/23 03/12/23 Range/Units 23:36 23:53 23:59 WBC (4.8-10.8) K/ul RBC (4.20-5.40) M/uL Hgb (12.0-16.0) g/dl POC Hgb 8.5 L (12.0-16.0) g/dl Hct (37.0-47.0) % POC Hct 25 L (37-47) % MCV (80.0-100.0) fL MCH (25.0-34.0) pg MCHC (32.0-36.0) g/dL RDW Std Deviation (36.4-46.3) fL RDW Coeff of Vanessa (11.5-14.5) % Plt Count (130-400) K/uL MPV (9.4-12.4) fL Immature Gran % (Auto) % Neut % (Auto) % Lymph % (Auto) % [place] % (Auto) % Eos % (Auto) % Baso % (Auto) % Neut # (Auto) (1.40-6.50) K/uL Lymph # (Auto) (1.2-3.4) K/uL [place] # (Auto) (0.11-0.59) K/uL Eos # (Auto) (0-0.50) K/uL Baso # (Auto) (0-0.2) K/uL Immature Gran # (Auto) (0.01-0.20) K/uL Absolute Nucleated RBC (0-0.12) K/uL Nucleated RBC % (auto) % Hypochromasia Echinocytes PT (9.0-12.0) Seconds INR (0.9-1.1) APTT (21.0-31.0) Seconds PTT Ratio Fibrinogen (184-400) mg/dl POC pH 7.22 L (7.35-7.45) POC pCO2 17 L (35-46) mmHg POC pO2 200 H (80-95) mmHg POC HCO3 7 L (19-24) erika/L POC Total CO2 7 L* (24-31) mmol/L POC Base Excess -21.0 L (-9-1.8) erika/L POC ABG O2 Sat 100.0 H (90-95) % POC Sodium 129 L (135-144) mmol/L Sodium (136-145) mmol/L POC Potassium 5.2 H (3.3-5.0) mmol/L Potassium (3.5-5.1) mmol/L Chloride (98-107) mmol/L Carbon Dioxide (21-32) mmol/L Anion Gap (3-11) BUN (6-23) mg/dl Creatinine (0.6-1.2) mg/dl Est Cr Clr Drug Dosing ml/min Est GFR ( Amer) ml/min Est GFR (Non-Af Amer) ml/min BUN/Creatinine Ratio (10-20) Glucose (70-99(Fasting)) mg/dl POC Glucose 12 L* 18 L* (70-99) mg/dl Osmolality (280-300) mOsm/kg Lactate (0.4-2.0) mmol/L Calcium (8.6-10.3) mg/dl Magnesium (1.7-2.4) mg/dl Total Bilirubin (0.2-1.0) mg/dl Direct Bilirubin (0-0.2) mg/dl AST (13-39) U/L ALT (7-52) U/L Alkaline Phosphatase (34-104) U/L Total Creatine Kinase (26-192) U/L Troponin I High Sens (0-14) pg/ml B-Natriuretic Peptide (0-100) pg/ml Total Protein (6.0-8.3) gm/dl Albumin (3.4-5.0) gm/dl Lipase (11-82) U/L Procalcitonin (0-0.5) ng/ml Urine Color Urine Appearance (Clear) Urine pH (4.5-7.5) Ur Specific [place] (1.000-1.030) Urine Protein (Negative) Urine Glucose (UA) (Negative) Urine Ketones (Negative) Urine Blood (Negative) Urine Nitrite (Negative) Urine Bilirubin (Negative) Urine Urobilinogen (Negative) Ur Leukocyte Esterase (Negative) Urine WBC (Auto) (0-5) /hpf Urine RBC (Auto) (0-4) /hpf U Hyaline Cast (Auto) (0-5) /lpf U Epithel Cells (Auto) (0-5) /lpf Urine Bacteria (Auto) (Negative) Urine Opiates Screen (Neg) Ur Methadone, Qual (Neg) Acetaminophen (10-30) ug/ml Urine Barbiturates (Neg) Ur Phencyclidine (PCP) (Neg) U Amphetamin/Meth Scrn (Neg) MDMA (Ecstasy) Screen (Neg) U Benzodiazepines Scrn (Neg) Ur Cocaine Metabolite (Neg) U Marijuana (THC) Screen (Neg) Ethyl Alcohol mg/dL (<10.0) mg/dl SARS-CoV-2 (PCR) (Negative) Influenza Type A (PCR) (Neg) Influenza Type B (PCR) (Neg) RSV (RT-PCR) (Neg) 03/13/23 03/13/23 03/13/23 Range/Units 00:03 00:03 00:03 WBC 15.44 H (4.8-10.8) K/ul RBC 2.65 L (4.20-5.40) M/uL Hgb 7.3 L (12.0-16.0) g/dl POC Hgb (12.0-16.0) g/dl Hct 24.4 L (37.0-47.0) % POC Hct (37-47) % MCV 92.1 (80.0-100.0) fL MCH 27.5 (25.0-34.0) pg MCHC 29.9 L (32.0-36.0) g/dL RDW Std Deviation 62.8 H (36.4-46.3) fL RDW Coeff of Vanessa 18.6 H (11.5-14.5) % Plt Count 251 (130-400) K/uL MPV 11.7 (9.4-12.4) fL Immature Gran % (Auto) 0.5 % Neut % (Auto) 94.3 % Lymph % (Auto) 2.8 % [place] % (Auto) 2.3 % Eos % (Auto) 0.0 % Baso % (Auto) 0.1 % Neut # (Auto) 14.56 H (1.40-6.50) K/uL Lymph # (Auto) 0.44 L (1.2-3.4) K/uL [place] # (Auto) 0.35 (0.11-0.59) K/uL Eos # (Auto) 0.00 (0-0.50) K/uL Baso # (Auto) 0.02 (0-0.2) K/uL Immature Gran # (Auto) 0.07 (0.01-0.20) K/uL Absolute Nucleated RBC 0.33 H (0-0.12) K/uL Nucleated RBC % (auto) 2.1 % Hypochromasia Present Echinocytes 2+ PT (9.0-12.0) Seconds INR (0.9-1.1) APTT (21.0-31.0) Seconds PTT Ratio Fibrinogen (184-400) mg/dl POC pH (7.35-7.45) POC pCO2 (35-46) mmHg POC pO2 (80-95) mmHg POC HCO3 (19-24) erika/L POC Total CO2 (24-31) mmol/L POC Base Excess (-9-1.8) erika/L POC ABG O2 Sat (90-95) % POC Sodium (135-144) mmol/L Sodium 129 L (136-145) mmol/L POC Potassium (3.3-5.0) mmol/L Potassium 5.3 H (3.5-5.1) mmol/L Chloride 101 (98-107) mmol/L Carbon Dioxide 11 L (21-32) mmol/L Anion Gap 17 H (3-11) BUN 43 H (6-23) mg/dl Creatinine 2.28 H (0.6-1.2) mg/dl Est Cr Clr Drug Dosing 15.6 ml/min Est GFR ( Amer) 22.8 ml/min Est GFR (Non-Af Amer) 19.6 ml/min BUN/Creatinine Ratio 18.9 (10-20) Glucose 177 H (70-99(Fasting)) mg/dl POC Glucose (70-99) mg/dl Osmolality (280-300) mOsm/kg Lactate 12.9 H* (0.4-2.0) mmol/L Calcium 8.3 L (8.6-10.3) mg/dl Magnesium 2.1 (1.7-2.4) mg/dl Total Bilirubin 1.3 H (0.2-1.0) mg/dl Direct Bilirubin 0.7 H (0-0.2) mg/dl AST 9035 H (13-39) U/L ALT > 2500 H (7-52) U/L Alkaline Phosphatase 165 H (34-104) U/L Total Creatine Kinase (26-192) U/L Troponin I High Sens 39.1 H (0-14) pg/ml B-Natriuretic Peptide (0-100) pg/ml Total Protein 5.9 L (6.0-8.3) gm/dl Albumin 3.3 L (3.4-5.0) gm/dl Lipase (11-82) U/L Procalcitonin (0-0.5) ng/ml Urine Color Urine Appearance (Clear) Urine pH (4.5-7.5) Ur Specific [place] (1.000-1.030) Urine Protein (Negative) Urine Glucose (UA) (Negative) Urine Ketones (Negative) Urine Blood (Negative) Urine Nitrite (Negative) Urine Bilirubin (Negative) Urine Urobilinogen (Negative) Ur Leukocyte Esterase (Negative) Urine WBC (Auto) (0-5) /hpf Urine RBC (Auto) (0-4) /hpf U Hyaline Cast (Auto) (0-5) /lpf U Epithel Cells (Auto) (0-5) /lpf Urine Bacteria (Auto) (Negative) Urine Opiates Screen (Neg) Ur Methadone, Qual (Neg) Acetaminophen (10-30) ug/ml Urine Barbiturates (Neg) Ur Phencyclidine (PCP) (Neg) U Amphetamin/Meth Scrn (Neg) MDMA (Ecstasy) Screen (Neg) U Benzodiazepines Scrn (Neg) Ur Cocaine Metabolite (Neg) U Marijuana (THC) Screen (Neg) Ethyl Alcohol mg/dL (<10.0) mg/dl SARS-CoV-2 (PCR) (Negative) Influenza Type A (PCR) (Neg) Influenza Type B (PCR) (Neg) RSV (RT-PCR) (Neg) 03/13/23 03/13/23 03/13/23 Range/Units 00:03 00:03 00:03 WBC (4.8-10.8) K/ul RBC (4.20-5.40) M/uL Hgb (12.0-16.0) g/dl POC Hgb (12.0-16.0) g/dl Hct (37.0-47.0) % POC Hct (37-47) % MCV (80.0-100.0) fL MCH (25.0-34.0) pg MCHC (32.0-36.0) g/dL RDW Std Deviation (36.4-46.3) fL RDW Coeff of Vanessa (11.5-14.5) % Plt Count (130-400) K/uL MPV (9.4-12.4) fL Immature Gran % (Auto) % Neut % (Auto) % Lymph % (Auto) % [place] % (Auto) % Eos % (Auto) % Baso % (Auto) % Neut # (Auto) (1.40-6.50) K/uL Lymph # (Auto) (1.2-3.4) K/uL [place] # (Auto) (0.11-0.59) K/uL Eos # (Auto) (0-0.50) K/uL Baso # (Auto) (0-0.2) K/uL Immature Gran # (Auto) (0.01-0.20) K/uL Absolute Nucleated RBC (0-0.12) K/uL Nucleated RBC % (auto) % Hypochromasia Echinocytes PT 25.2 H (9.0-12.0) Seconds INR 2.4 H (0.9-1.1) APTT (21.0-31.0) Seconds PTT Ratio Fibrinogen 212 (184-400) mg/dl POC pH (7.35-7.45) POC pCO2 (35-46) mmHg POC pO2 (80-95) mmHg POC HCO3 (19-24) erika/L POC Total CO2 (24-31) mmol/L POC Base Excess (-9-1.8) erika/L POC ABG O2 Sat (90-95) % POC Sodium (135-144) mmol/L Sodium (136-145) mmol/L POC Potassium (3.3-5.0) mmol/L Potassium (3.5-5.1) mmol/L Chloride (98-107) mmol/L Carbon Dioxide (21-32) mmol/L Anion Gap (3-11) BUN (6-23) mg/dl Creatinine (0.6-1.2) mg/dl Est Cr Clr Drug Dosing ml/min Est GFR ( Amer) ml/min Est GFR (Non-Af Amer) ml/min BUN/Creatinine Ratio (10-20) Glucose (70-99(Fasting)) mg/dl POC Glucose (70-99) mg/dl Osmolality (280-300) mOsm/kg Lactate (0.4-2.0) mmol/L Calcium (8.6-10.3) mg/dl Magnesium (1.7-2.4) mg/dl Total Bilirubin (0.2-1.0) mg/dl Direct Bilirubin (0-0.2) mg/dl AST (13-39) U/L ALT (7-52) U/L Alkaline Phosphatase (34-104) U/L Total Creatine Kinase (26-192) U/L Troponin I High Sens (0-14) pg/ml B-Natriuretic Peptide (0-100) pg/ml Total Protein (6.0-8.3) gm/dl Albumin (3.4-5.0) gm/dl Lipase (11-82) U/L Procalcitonin 0.44 (0-0.5) ng/ml Urine Color Urine Appearance (Clear) Urine pH (4.5-7.5) Ur Specific [place] (1.000-1.030) Urine Protein (Negative) Urine Glucose (UA) (Negative) Urine Ketones (Negative) Urine Blood (Negative) Urine Nitrite (Negative) Urine Bilirubin (Negative) Urine Urobilinogen (Negative) Ur Leukocyte Esterase (Negative) Urine WBC (Auto) (0-5) /hpf Urine RBC (Auto) (0-4) /hpf U Hyaline Cast (Auto) (0-5) /lpf U Epithel Cells (Auto) (0-5) /lpf Urine Bacteria (Auto) (Negative) Urine Opiates Screen (Neg) Ur Methadone, Qual (Neg) Acetaminophen < 3 L (10-30) ug/ml Urine Barbiturates (Neg) Ur Phencyclidine (PCP) (Neg) U Amphetamin/Meth Scrn (Neg) MDMA (Ecstasy) Screen (Neg) U Benzodiazepines Scrn (Neg) Ur Cocaine Metabolite (Neg) U Marijuana (THC) Screen (Neg) Ethyl Alcohol mg/dL (<10.0) mg/dl SARS-CoV-2 (PCR) (Negative) Influenza Type A (PCR) (Neg) Influenza Type B (PCR) (Neg) RSV (RT-PCR) (Neg) 03/13/23 03/13/23 03/13/23 Range/Units 00:03 00:04 00:24 WBC (4.8-10.8) K/ul RBC (4.20-5.40) M/uL Hgb (12.0-16.0) g/dl POC Hgb (12.0-16.0) g/dl Hct (37.0-47.0) % POC Hct (37-47) % MCV (80.0-100.0) fL MCH (25.0-34.0) pg MCHC (32.0-36.0) g/dL RDW Std Deviation (36.4-46.3) fL RDW Coeff of Vanessa (11.5-14.5) % Plt Count (130-400) K/uL MPV (9.4-12.4) fL Immature Gran % (Auto) % Neut % (Auto) % Lymph % (Auto) % [place] % (Auto) % Eos % (Auto) % Baso % (Auto) % Neut # (Auto) (1.40-6.50) K/uL Lymph # (Auto) (1.2-3.4) K/uL [place] # (Auto) (0.11-0.59) K/uL Eos # (Auto) (0-0.50) K/uL Baso # (Auto) (0-0.2) K/uL Immature Gran # (Auto) (0.01-0.20) K/uL Absolute Nucleated RBC (0-0.12) K/uL Nucleated RBC % (auto) % Hypochromasia Echinocytes PT (9.0-12.0) Seconds INR (0.9-1.1) APTT 36.2 H (21.0-31.0) Seconds PTT Ratio 1.3 Fibrinogen (184-400) mg/dl POC pH (7.35-7.45) POC pCO2 (35-46) mmHg POC pO2 (80-95) mmHg POC HCO3 (19-24) erika/L POC Total CO2 (24-31) mmol/L POC Base Excess (-9-1.8) erika/L POC ABG O2 Sat (90-95) % POC Sodium (135-144) mmol/L Sodium (136-145) mmol/L POC Potassium (3.3-5.0) mmol/L Potassium (3.5-5.1) mmol/L Chloride (98-107) mmol/L Carbon Dioxide (21-32) mmol/L Anion Gap (3-11) BUN (6-23) mg/dl Creatinine (0.6-1.2) mg/dl Est Cr Clr Drug Dosing ml/min Est GFR ( Amer) ml/min Est GFR (Non-Af Amer) ml/min BUN/Creatinine Ratio (10-20) Glucose (70-99(Fasting)) mg/dl POC Glucose 215 H (70-99) mg/dl Osmolality (280-300) mOsm/kg Lactate (0.4-2.0) mmol/L Calcium (8.6-10.3) mg/dl Magnesium (1.7-2.4) mg/dl Total Bilirubin (0.2-1.0) mg/dl Direct Bilirubin (0-0.2) mg/dl AST (13-39) U/L ALT (7-52) U/L Alkaline Phosphatase (34-104) U/L Total Creatine Kinase (26-192) U/L Troponin I High Sens (0-14) pg/ml B-Natriuretic Peptide (0-100) pg/ml Total Protein (6.0-8.3) gm/dl Albumin (3.4-5.0) gm/dl Lipase (11-82) U/L Procalcitonin (0-0.5) ng/ml Urine Color Urine Appearance (Clear) Urine pH (4.5-7.5) Ur Specific [place] (1.000-1.030) Urine Protein (Negative) Urine Glucose (UA) (Negative) Urine Ketones (Negative) Urine Blood (Negative) Urine Nitrite (Negative) Urine Bilirubin (Negative) Urine Urobilinogen (Negative) Ur Leukocyte Esterase (Negative) Urine WBC (Auto) (0-5) /hpf Urine RBC (Auto) (0-4) /hpf U Hyaline Cast (Auto) (0-5) /lpf U Epithel Cells (Auto) (0-5) /lpf Urine Bacteria (Auto) (Negative) Urine Opiates Screen (Neg) Ur Methadone, Qual (Neg) Acetaminophen (10-30) ug/ml Urine Barbiturates (Neg) Ur Phencyclidine (PCP) (Neg) U Amphetamin/Meth Scrn (Neg) MDMA (Ecstasy) Screen (Neg) U Benzodiazepines Scrn (Neg) Ur Cocaine Metabolite (Neg) U Marijuana (THC) Screen (Neg) Ethyl Alcohol mg/dL (<10.0) mg/dl SARS-CoV-2 (PCR) NEGATIVE (Negative) Influenza Type A (PCR) Negative (Neg) Influenza Type B (PCR) Negative (Neg) RSV (RT-PCR) Negative (Neg) 03/13/23 03/13/23 03/13/23 Range/Units 01:22 01:23 01:54 WBC (4.8-10.8) K/ul RBC (4.20-5.40) M/uL Hgb (12.0-16.0) g/dl POC Hgb (12.0-16.0) g/dl Hct (37.0-47.0) % POC Hct (37-47) % MCV (80.0-100.0) fL MCH (25.0-34.0) pg MCHC (32.0-36.0) g/dL RDW Std Deviation (36.4-46.3) fL RDW Coeff of Vanessa (11.5-14.5) % Plt Count (130-400) K/uL MPV (9.4-12.4) fL Immature Gran % (Auto) % Neut % (Auto) % Lymph % (Auto) % [place] % (Auto) % Eos % (Auto) % Baso % (Auto) % Neut # (Auto) (1.40-6.50) K/uL Lymph # (Auto) (1.2-3.4) K/uL [place] # (Auto) (0.11-0.59) K/uL Eos # (Auto) (0-0.50) K/uL Baso # (Auto) (0-0.2) K/uL Immature Gran # (Auto) (0.01-0.20) K/uL Absolute Nucleated RBC (0-0.12) K/uL Nucleated RBC % (auto) % Hypochromasia Echinocytes PT (9.0-12.0) Seconds INR (0.9-1.1) APTT (21.0-31.0) Seconds PTT Ratio Fibrinogen (184-400) mg/dl POC pH (7.35-7.45) POC pCO2 (35-46) mmHg POC pO2 (80-95) mmHg POC HCO3 (19-24) erika/L POC Total CO2 (24-31) mmol/L POC Base Excess (-9-1.8) erika/L POC ABG O2 Sat (90-95) % POC Sodium (135-144) mmol/L Sodium (136-145) mmol/L POC Potassium (3.3-5.0) mmol/L Potassium (3.5-5.1) mmol/L Chloride (98-107) mmol/L Carbon Dioxide (21-32) mmol/L Anion Gap (3-11) BUN (6-23) mg/dl Creatinine (0.6-1.2) mg/dl Est Cr Clr Drug Dosing ml/min Est GFR ( Amer) ml/min Est GFR (Non-Af Amer) ml/min BUN/Creatinine Ratio (10-20) Glucose (70-99(Fasting)) mg/dl POC Glucose 100 H (70-99) mg/dl Osmolality (280-300) mOsm/kg Lactate (0.4-2.0) mmol/L Calcium (8.6-10.3) mg/dl Magnesium (1.7-2.4) mg/dl Total Bilirubin (0.2-1.0) mg/dl Direct Bilirubin (0-0.2) mg/dl AST (13-39) U/L ALT (7-52) U/L Alkaline Phosphatase (34-104) U/L Total Creatine Kinase (26-192) U/L Troponin I High Sens (0-14) pg/ml B-Natriuretic Peptide 3791 H (0-100) pg/ml Total Protein (6.0-8.3) gm/dl Albumin (3.4-5.0) gm/dl Lipase (11-82) U/L Procalcitonin (0-0.5) ng/ml Urine Color Dark Yellow Urine Appearance Turbid A (Clear) Urine pH 5.5 (4.5-7.5) Ur Specific [place] 1.019 (1.000-1.030) Urine Protein 2+ H (Negative) Urine Glucose (UA) 2+ H (Negative) Urine Ketones Trace H (Negative) Urine Blood 3+ H (Negative) Urine Nitrite Negative (Negative) Urine Bilirubin Negative (Negative) Urine Urobilinogen Negative (Negative) Ur Leukocyte Esterase 1+ H (Negative) Urine WBC (Auto) 10-30 H (0-5) /hpf Urine RBC (Auto) 0-4 (0-4) /hpf U Hyaline Cast (Auto) 5-10 H (0-5) /lpf U Epithel Cells (Auto) >30 H (0-5) /lpf Urine Bacteria (Auto) 4+ H (Negative) Urine Opiates Screen (Neg) Ur Methadone, Qual (Neg) Acetaminophen (10-30) ug/ml Urine Barbiturates (Neg) Ur Phencyclidine (PCP) (Neg) U Amphetamin/Meth Scrn (Neg) MDMA (Ecstasy) Screen (Neg) U Benzodiazepines Scrn (Neg) Ur Cocaine Metabolite (Neg) U Marijuana (THC) Screen (Neg) Ethyl Alcohol mg/dL (<10.0) mg/dl SARS-CoV-2 (PCR) (Negative) Influenza Type A (PCR) (Neg) Influenza Type B (PCR) (Neg) RSV (RT-PCR) (Neg) 03/13/23 03/13/23 03/13/23 Range/Units 01:54 02:13 02:13 WBC (4.8-10.8) K/ul RBC (4.20-5.40) M/uL Hgb (12.0-16.0) g/dl POC Hgb (12.0-16.0) g/dl Hct (37.0-47.0) % POC Hct (37-47) % MCV (80.0-100.0) fL MCH (25.0-34.0) pg MCHC (32.0-36.0) g/dL RDW Std Deviation (36.4-46.3) fL RDW Coeff of Vanessa (11.5-14.5) % Plt Count (130-400) K/uL MPV (9.4-12.4) fL Immature Gran % (Auto) % Neut % (Auto) % Lymph % (Auto) % [place] % (Auto) % Eos % (Auto) % Baso % (Auto) % Neut # (Auto) (1.40-6.50) K/uL Lymph # (Auto) (1.2-3.4) K/uL [place] # (Auto) (0.11-0.59) K/uL Eos # (Auto) (0-0.50) K/uL Baso # (Auto) (0-0.2) K/uL Immature Gran # (Auto) (0.01-0.20) K/uL Absolute Nucleated RBC (0-0.12) K/uL Nucleated RBC % (auto) % Hypochromasia Echinocytes PT (9.0-12.0) Seconds INR (0.9-1.1) APTT (21.0-31.0) Seconds PTT Ratio Fibrinogen (184-400) mg/dl POC pH (7.35-7.45) POC pCO2 (35-46) mmHg POC pO2 (80-95) mmHg POC HCO3 (19-24) erika/L POC Total CO2 (24-31) mmol/L POC Base Excess (-9-1.8) erika/L POC ABG O2 Sat (90-95) % POC Sodium (135-144) mmol/L Sodium 130 L (136-145) mmol/L POC Potassium (3.3-5.0) mmol/L Potassium 4.9 (3.5-5.1) mmol/L Chloride 102 (98-107) mmol/L Carbon Dioxide 10 L (21-32) mmol/L Anion Gap 18 H (3-11) BUN 44 H (6-23) mg/dl Creatinine 2.20 H (0.6-1.2) mg/dl Est Cr Clr Drug Dosing 16.1 ml/min Est GFR ( Amer) 23.8 ml/min Est GFR (Non-Af Amer) 20.5 ml/min BUN/Creatinine Ratio 20.0 (10-20) Glucose 77 (70-99(Fasting)) mg/dl POC Glucose (70-99) mg/dl Osmolality (280-300) mOsm/kg Lactate 13.8 H* (0.4-2.0) mmol/L Calcium 8.4 L (8.6-10.3) mg/dl Magnesium (1.7-2.4) mg/dl Total Bilirubin 1.2 H (0.2-1.0) mg/dl Direct Bilirubin 0.6 H (0-0.2) mg/dl AST 9454 H (13-39) U/L ALT > 2500 H (7-52) U/L Alkaline Phosphatase 172 H (34-104) U/L Total Creatine Kinase 298 H (26-192) U/L Troponin I High Sens 44.1 H (0-14) pg/ml B-Natriuretic Peptide (0-100) pg/ml Total Protein 5.9 L (6.0-8.3) gm/dl Albumin 3.2 L (3.4-5.0) gm/dl Lipase 111 H (11-82) U/L Procalcitonin (0-0.5) ng/ml Urine Color Urine Appearance (Clear) Urine pH (4.5-7.5) Ur Specific [place] (1.000-1.030) Urine Protein (Negative) Urine Glucose (UA) (Negative) Urine Ketones (Negative) Urine Blood (Negative) Urine Nitrite (Negative) Urine Bilirubin (Negative) Urine Urobilinogen (Negative) Ur Leukocyte Esterase (Negative) Urine WBC (Auto) (0-5) /hpf Urine RBC (Auto) (0-4) /hpf U Hyaline Cast (Auto) (0-5) /lpf U Epithel Cells (Auto) (0-5) /lpf Urine Bacteria (Auto) (Negative) Urine Opiates Screen Neg (Neg) Ur Methadone, Qual Neg (Neg) Acetaminophen (10-30) ug/ml Urine Barbiturates Neg (Neg) Ur Phencyclidine (PCP) Neg (Neg) U Amphetamin/Meth Scrn Neg (Neg) MDMA (Ecstasy) Screen Neg (Neg) U Benzodiazepines Scrn Neg (Neg) Ur Cocaine Metabolite Neg (Neg) U Marijuana (THC) Screen Neg (Neg) Ethyl Alcohol mg/dL (<10.0) mg/dl SARS-CoV-2 (PCR) (Negative) Influenza Type A (PCR) (Neg) Influenza Type B (PCR) (Neg) RSV (RT-PCR) (Neg) 03/13/23 03/13/23 Range/Units 02:13 02:13 WBC (4.8-10.8) K/ul RBC (4.20-5.40) M/uL Hgb (12.0-16.0) g/dl POC Hgb (12.0-16.0) g/dl Hct (37.0-47.0) % POC Hct (37-47) % MCV (80.0-100.0) fL MCH (25.0-34.0) pg MCHC (32.0-36.0) g/dL RDW Std Deviation (36.4-46.3) fL RDW Coeff of Vanessa (11.5-14.5) % Plt Count (130-400) K/uL MPV (9.4-12.4) fL Immature Gran % (Auto) % Neut % (Auto) % Lymph % (Auto) % [place] % (Auto) % Eos % (Auto) % Baso % (Auto) % Neut # (Auto) (1.40-6.50) K/uL Lymph # (Auto) (1.2-3.4) K/uL [place] # (Auto) (0.11-0.59) K/uL Eos # (Auto) (0-0.50) K/uL Baso # (Auto) (0-0.2) K/uL Immature Gran # (Auto) (0.01-0.20) K/uL Absolute Nucleated RBC (0-0.12) K/uL Nucleated RBC % (auto) % Hypochromasia Echinocytes PT (9.0-12.0) Seconds INR (0.9-1.1) APTT (21.0-31.0) Seconds PTT Ratio Fibrinogen (184-400) mg/dl POC pH (7.35-7.45) POC pCO2 (35-46) mmHg POC pO2 (80-95) mmHg POC HCO3 (19-24) erika/L POC Total CO2 (24-31) mmol/L POC Base Excess (-9-1.8) erika/L POC ABG O2 Sat (90-95) % POC Sodium (135-144) mmol/L Sodium (136-145) mmol/L POC Potassium (3.3-5.0) mmol/L Potassium (3.5-5.1) mmol/L Chloride (98-107) mmol/L Carbon Dioxide (21-32) mmol/L Anion Gap (3-11) BUN (6-23) mg/dl Creatinine (0.6-1.2) mg/dl Est Cr Clr Drug Dosing ml/min Est GFR ( Amer) ml/min Est GFR (Non-Af Amer) ml/min BUN/Creatinine Ratio (10-20) Glucose (70-99(Fasting)) mg/dl POC Glucose (70-99) mg/dl Osmolality 291 (280-300) mOsm/kg Lactate (0.4-2.0) mmol/L Calcium (8.6-10.3) mg/dl Magnesium (1.7-2.4) mg/dl Total Bilirubin (0.2-1.0) mg/dl Direct Bilirubin (0-0.2) mg/dl AST (13-39) U/L ALT (7-52) U/L Alkaline Phosphatase (34-104) U/L Total Creatine Kinase (26-192) U/L Troponin I High Sens (0-14) pg/ml B-Natriuretic Peptide (0-100) pg/ml Total Protein (6.0-8.3) gm/dl Albumin (3.4-5.0) gm/dl Lipase (11-82) U/L Procalcitonin (0-0.5) ng/ml Urine Color Urine Appearance (Clear) Urine pH (4.5-7.5) Ur Specific [place] (1.000-1.030) Urine Protein (Negative) Urine Glucose (UA) (Negative) Urine Ketones (Negative) Urine Blood (Negative) Urine Nitrite (Negative) Urine Bilirubin (Negative) Urine Urobilinogen (Negative) Ur Leukocyte Esterase (Negative) Urine WBC (Auto) (0-5) /hpf Urine RBC (Auto) (0-4) /hpf U Hyaline Cast (Auto) (0-5) /lpf U Epithel Cells (Auto) (0-5) /lpf Urine Bacteria (Auto) (Negative) Urine Opiates Screen (Neg) Ur Methadone, Qual (Neg) Acetaminophen (10-30) ug/ml Urine Barbiturates (Neg) Ur Phencyclidine (PCP) (Neg) U Amphetamin/Meth Scrn (Neg) MDMA (Ecstasy) Screen (Neg) U Benzodiazepines Scrn (Neg) Ur Cocaine Metabolite (Neg) U Marijuana (THC) Screen (Neg) Ethyl Alcohol mg/dL < 10.0 (<10.0) mg/dl SARS-CoV-2 (PCR) (Negative) Influenza Type A (PCR) (Neg) Influenza Type B (PCR) (Neg) RSV (RT-PCR) (Neg) Administered Medications Discontinued Medications Heparin Sodium/Dextrose (Heparin Iv Adult Wt-Based Standard *No* Bolus Protocol) 1 each IV Q30M BRIJESH; Protocol Stop: 03/13/23 07:11 Last Admin: 03/13/23 04:57 Dose: 1 each Documented By: KENNETH Cefepime HCl (Maxipime) 2,000 mg in 20 mls @ 5 mls/min IV NOW STA; Protocol Stop: 03/13/23 01:00 Last Admin: 03/13/23 01:27 Dose: 5 mls/min Documented By: KENNETH Vancomycin HCl 1,500 mg/ (Sodium Chloride) 530 mls @ 200 mls/hr IV NOW ONE Stop: 03/13/23 03:38 Last Admin: 03/13/23 01:42 Dose: 200 mls/hr Documented By: KENNETH Sodium Chloride (Nss 1000ml) 1,000 mls @ 999 mls/hr IV .Q1H1M ONE Stop: 03/13/23 02:40 Last Infusion: 03/13/23 03:46 Dose: 0 mls/hr Documented By: Admin: 03/13/23 02:12 Dose: 999 mls/hr Documented By: KENNETH Pantoprazole Sodium 40 mg/ (Syringe) 10 mls @ 5 mls/min IV NOW ONE Stop: 03/13/23 02:01 Last Admin: 03/13/23 02:13 Dose: 5 mls/min Documented By: KENNETH Heparin Sodium/Dextrose (Heparin Sodium/Dextrose) 25,000 units in 500 mls @ 18 mls/hr IV .Q24H BRIJESH; Protocol Stop: 04/12/23 04:59 Last Titration: 03/13/23 10:50 Dose: 0 units/hr, 0 mls/hr Documented By: ELIZABETH Co-signed By: DIXIE Admin: 03/13/23 05:56 Dose: 900 units/hr, 18 mls/hr Documented By: KENNETH Co-signed By: GUANAKO Ioversol (Optiray 320 100ml) 100 ml IV ONCE ONE Stop: 03/13/23 03:31 Last Admin: 03/13/23 03:31 Dose: 93 ml Documented By: VILMA Lorazepam (Lorazepam 2 Mg/1 Ml Vial) Confirm Administered Dose 2 mg .ROUTE .STK- MED ONE Stop: 03/13/23 03:59 Last Admin: 03/13/23 04:47 Dose: Not Given Documented By: KENNETH Lorazepam (Lorazepam 2 Mg/1 Ml Vial) 0.5 mg IV NOW STA Stop: 03/13/23 04:45 Last Admin: 03/13/23 04:00 Dose: 0.5 mg Documented By: KENNETH Lorazepam (Lorazepam 2 Mg/1 Ml Vial) 0.5 mg IV Q4H PRN PRN Reason: Anxiety/Agitation Stop: 04/12/23 07:55 Last Admin: 03/13/23 08:51 Dose: 0.5 mg Documented By: DIXIE Morphine Sulfate (Morphine Sulfate 2 Mg/Ml Carp) 2 mg IV Q1H PRN PRN Reason: Moderate Pain (Scale 4, 5, 6) Stop: 03/27/23 07:55 Last Admin: 03/13/23 08:52 Dose: 2 mg Documented By: DIXIE Imaging Data Radiologist's Impression: Chest X-Ray 03/12/23 23:46 XR chest 1V portable HISTORY: Sepsis COMPARISON: Chest 02/06/2023. FINDINGS: No pneumothorax. No pleural effusions. The cardiac silhouette remains mildly enlarged. There is a left-sided pacemaker/defibrillator again noted. Slightly rotated study. There is mild pulmonary vascular congestion without overt edema. This has improved in the interval. No acute fractures identified. B ibasilar densities have improved. IMPRESSION: 1. Cardiomegaly with mild pulmonary vascular congestion. 2. Bibasilar densities have improved. ACT 112: Negative or not required by law. Electronically signed by: Jarocho Vazquez M.D. 03/13/2023 7:19 AM Abdomen/Pelvis CT 03/13/23 01:40 Exam(s): CT ABDOMEN + PELVIS With Contrast IV Amt: 93 ML OPTIRAY 320 EXAM: CT Abdomen and Pelvis With Intravenous Contrast CLINICAL HISTORY: Reason for exam: elevated lactate ?gut ischemia ?thrombus. TECHNIQUE: Axial computed tomography images of the abdomen and pelvis with intravenous contrast. CTDI is 24.88 mGy and DLP is 1166.77 mGy-cm. Automated exposure control was utilized for the study. A dose lowering technique was utilized adhering to the principles of ALARA. CONTRAST: Patient received 93 ML OPTIRAY 320 of IV contrast COMPARISON: No relevant prior studies available. FINDINGS: ABDOMEN: Liver: Hepatic steatosis. Gallbladder and bile ducts: Unremarkable. Pancreas: Unremarkable. Spleen: Unremarkable. Adrenals: Unremarkable. Kidneys and ureters: Atrophic left kidney. Chronic infarcts in the right kidney. Stomach and bowel: No pneumatosis or perforation at this time. No obstruction. No mucosal inflammation. PELVIS: Appendix: No findings to suggest acute appendicitis. Bladder: Full catheter in the bladder. Reproductive: Unremarkable as visualized. ABDOMEN and PELVIS: Intraperitoneal space: Unremarkable. No free air. No significant fluid collection. Bones/joints: See below. Soft tissues: Unremarkable. Vasculature: Occluded celiac artery and proximal SMA. There is some reconstitution of flow within the SMA. The GLENN also appears occluded. Status post aortobifemoral bypass. Lymph nodes: Unremarkable. 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 There is some reconstitution of flow within the SMA. The GLENN also appears occluded. The patient is certainly at risk of bowel ischemia. No pneumatosis or bowel perforation at this time. Electronically signed by: Mehdi Devine MD 03/13/23 04:39 AM Discharge Plan Visit Data Chief Complaint: Shortness of Breath/Dyspnea Stated Complaint: SHORTNESS OF BREATH, ABDOMINAL PAIN ED Provider: Mandy Vann Discharge Problem: Acute liver failure, Hypoglycemia, Occlusion of celiac artery Patient Disposition: Discharge Instructions Interventions: ED Discharge Assessment Last Done: 03/13/23 07:56 Date/Time: 03/13/23 10:48 Acute liver failure Qualifiers: Hepatic coma status: without hepatic coma Qualified Code(s): K72.00 - Acute and subacute hepatic failure without coma
[2023-03-13] MEDS ORDERED: CARBOHYDRATES FOR HYPOGLYCEMIA PO PRN (07:56)
[2023-03-13] MEDS ORDERED: DEXTROSE 50% 50 ML SYRINGE IV PRN (07:56)
[2023-03-13] MEDS ORDERED: MoRPHine SULFATE 4 MG/ML 1 ML CARP\\VIAL IV PRN (07:56)
[2023-03-13] MEDS ORDERED: GLUCOSE 10 TAB/TUBE PO PRN (07:56)
[2023-03-13] MEDS ORDERED: MoRPHine SULFATE 2 MG/ML CARP IV PRN (07:56)
[2023-03-13] MEDS ORDERED: GLUCOSE 40% GEL 15 GM TUBE PO PRN (07:56)
[2023-03-13] MEDS ORDERED: ICU Protocol for HYPERglycemia SCH (07:56)
[2023-03-13] MEDS ORDERED: LORazepam 2 MG/1 ML VIAL IV PRN (07:56)
[2023-03-13] MEDS ORDERED: GLUCAGON FOR INJ 1 MG VIAL SQ PRN (07:56)
[2023-03-13] MEDS ORDERED: ONDANSETRON INJ 2 MG/ML 2 ML VIAL IV PRN (07:56)
[2023-03-13] MEDS ORDERED: PHYTONADIONE 10 MG in DEXTROSE 5% 50 ML IV ONE (08:15)
--- NOTE | 2023-03-13 14:14 | Electrocardiogram Report ---
Test Reason : Blood Pressure : / mmHG Vent. Rate : 072 BPM Atrial Rate : 072 BPM P-R Int : 000 ms QRS Dur : 210 ms QT Int : 572 ms P-R-T Axes : 000 -70 107 degrees QTc Int : 626 ms AV dual-paced rhythm Abnormal ECG When compared with ECG of 09-DEC-2022 18:32, Vent. rate has increased BY 11 BPM Confirmed by Robert Christian ([id number]) on 03/13/2023 2:14:40 PM Referred By: REFERRED SELF Confirmed By:Ayden Christian
--- NOTE | 2023-03-13 17:09 | Discharge Summary ---
Date of Service March 13, 2023 Admission HPI Per Admitting Provider Kp Azul is an 82yo female with history of CAD, COPD, CKD, DM, HFrEF (30%), PAF s/p pacer and CAD. Patient brought in by EMS from home with complaint of constipation and shortness of breath. Upon arrival patient was noted to have cyanotic fingertips and mottled extremities. She was in respiratory distress - visibly tachypneic, unable to speak in complete sentences or lay back. Her initial blood sugar was 19. She was administered 125mg Solumedrol IV, DuoNeb and D10 by EMS. Patient was placed on BiPAP in the ER due to acute hypoxic respiratory failure. She was unable to tolerate the mask - was pulling it off and became very agitated. BiPAP was removed and NC placed - improved saturations. Labs as below reveal markedly abnormal LFTs suggestive of hepatocellular injury with AST of 9454, ALT of >2500. Minimal elevation of AP to 172 and Tbili of 1.2. Elevated INR of 2.4. High anion gap metabolic acidosis with pH of 7.22 on VBG, HCO3 of 11, Lactate of 13.8. 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 Found to have laboratory evidence of acute liver failure with markedly elevated AST and ALT as well as hypoglycemia, elevated lactate and progressive confusion. Patient had a CT of the abdomen performed with IV contrast which revealed an o ccluded celiac artery and proximal SMA with some reconstitution as well as occluded GLENN. PT has shock liver and likely liver infarction Patient with multiple medical comorbidities including HFrEF. Acute liver failure as well as TAZ, impending bowel ischemia and overall worsening clinical status. Her prognosis is grave. This was clearly communicated to the family. Pt expectantly from this acute gut ischemic event (2) Acute liver failure: Likely secondary to ischemia vs medication induced from amiodarone, infection/viral. (3) HFrEF (heart failure with reduced ejection fraction): (4) Hypothyroid: (5) CAD (coronary artery disease): (6) Diabetes mellitus, type 2: Total Time Total Time Spent Total Time Spent (In Minutes): admit dishcharge same day with Dr Webster Discharge Plan Discharge Items Patient Disposition: Discharge Diagnosis: liver infarction gut ischemia Other Date/Time: 03/13/23 10:48 Coding Level of Care Code INP/OBS EV SAME DAY LV 3,85MIN Diagnoses Arterial occlusion I70.90 Acute liver failure K72.00 HFrEF (heart failure with reduced ejection fraction) I50.20 Hypothyroid E03.9 CAD (coronary artery disease) I25.10 Coronary Disease-Associated Artery/Lesion type: [place] artery [place] vs. transplanted heart: [place] heart Associated angina: without angina Diabetes mellitus, type 2 E11.9
== END 2023-03-13 12:59 | disposition expired | DRG 441 ==
LOC: ED 23:25 → EDINP 03-13 04:29